=== PATIENT | male | born 1950 | race Caucasian/White ===

== ENCOUNTER 2016-08-16 16:15 | Inpatient (IN) | payer MEDICARE ==
[~2016-08-16] VITALS: Ht 170.2 cm; Wt 107.6 kg
[~2016-08-16 16:15] MED LIST: ALBU18HF INH; AMLO5TAB2 PO; CLOP75TA28 PO; GLPZ5T PO; INSU3INS3 SUBQ; LISI-571 PO; METF1000 ORAL; METO75TA PO; PRE10 PO; SERT50TA9 PO; ZIT250 PO
[2016-08-16 16:23] VITALS: BP 181/95; PULSE 113; RESP 23; O2SAT 93
--- NOTE | 2016-08-16 16:52 | ED.REPORT ---
HPI-Dyspnea / Wheezing Date of Service Aug 16, 2016 ED Provider: Eliza Quintero MD A 66 year old male with a history of CHF, COPD, diabetes, hypertension, and CAD presents to the ED complaining of shortness of breath. The pt was discharged from the hospital yesterday, but has returned because his condition has not improved. He was unable to fill his antibiotic prescription following discharge because the pharmacy was not open. The pt is normally on 2 to 3 L of oxygen at home, but only has a few hours left. His nebulizers have not been helping to relieve his symptoms today. He is able to walk and move around normally, but is complaining of a persistent cough. The pt denies chest pain, fever, or chills. Nursing Notes Stated Complaint: SHORTNESS OF BREATH Chief Complaint: Respiratory Complaints Nursing Notes Reviewed: Yes Allergies: Coded Allergies: vancomycin (Verified Allergy, Intermediate, Rash,Itching,, 08/16/16) Per Q: Pt should tolerates vancomycin as long as the rate is slow Scheduled Amlodipine (Amlodipine) 5 Mg Tablet 5 MG PO DAILY Aspirin Chew (Aspirin Chew) 81 Mg Chew 81 MG PO DAILY Atorvastatin Calcium (Atorvastatin Calcium) 20 Mg Tablet 20 MG PO HS Azithromycin (Zithromax) 250 Mg Tablet 250 MG PO DAILY Clopidogrel (Clopidogrel) 75 Mg Tablet 75 MG PO DAILY Glipizide (Glipizide) 5 Mg Tablet 5 MG PO BIDAC Insuln Asp Prt/Insulin Aspart (NovoLOG 70/30 U100 Insulin Flexpen) 100 Unit/Ml Unit 12 UNIT SUBQ BID Lisinopril (Lisinopril) 5 Mg Tablet 5 MG PO DAILY Metformin (Glucophage) 1,000 Mg Tablet 1,000 MG ORAL BID Metoprolol Tartrate (Metoprolol Tartrate) 75 Mg Tablet 75 MG PO BID Prednisone (PredniSONE) 10 Mg Tablet 10 MG PO DAILY take 4 tabs orally for 2 days, 2 tabs for 3 days, 1 tab for 3 days, then 1/2 tab for 4 days Sertraline HCl (Sertraline) 50 Mg Tablet 25 MG PO DAILY Scheduled PRN Albuterol Sulfate (Ventolin HFA Inhaler) 200 Puff/18 Gm Inhaler 1-2 PUFFS INH DIRECTED PRN PRN For Wheezing Benzonatate (Benzonatate) 100 Mg Capsule 100 MG PO TID PRN PRN For Cough General Time Seen by MD: 16:46 Chief Complaint Shortness of breath Hx Obtained From: Patient Arrived By: Walk-in Sudden in Onset?: No Onset Occurred: More than a week ago... Symptom Duration: Since onset Recent Healthcare: Recent doctor visit, Recent hospitalization Similar Sx Previous: Yes Past Medical History Past Medical History Notes: PCP: Dr. James Frequent hospital admissions for COPD exacerbations Past Medical History CAD, Non ST elevation [place], August 2013 Left lower extremity cellulitis Hypertriglyceridemia 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" Multiple visits of COPD with exacerbation (patient on chronic O2 2-3 L) History of paroxysmal atrial tachycardia Chronic CHF with systolic and diastolic dysfunction, echo August 2013 with an decreased left ventricular ejection fraction History of nonadherence to medical treatment Chronic venous insufficiency Hx cellulitis Reports: COPD, Congestive heart failure, Diabetes mellitus, Hyperlipidemia, Hypertension Reports: Obesity Past Surgical History None Family History Reports: Diabetes mellitus Smoking History Former Smoker Social History Patient is currently living in his car Alcohol Use: Denies alcohol use Drug Use: Denies drug use Other Social History: Poor social support, Frequent ED visitor, Homeless 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 Physical Exam Initial Vital Signs Vital Signs (First) Date Time Temp Pulse Resp B/P Pulse Ox O2 Delivery O2 Flow Rate FiO2 08/16/16 16:23 37.1 113 23 181/95 93 Room Air 08/16/16 18:07 3 Initial VS: Reviewed, Vital signs abnormal General/Constitutional: Awake, Alert Neck: Atraumatic, Supple, Full range of motion Respiratory / Chest: Atraumatic poor aeration bilaterally pursed lip breathing Cardiovascular: Heart rate NL, Regular rhythm, Heart sounds NL ENT: Atraumatic, Airway patent, Mucous membranes moist Abdomen: Atraumatic, Soft, Non-tender Back: Atraumatic, Full range of motion Lower Extremity / Pelvis / MS: Atraumatic, Full range of motion lower extremity lymphedema with erythema (pt states unchanged) Skin: Atraumatic, Color NL, No rash, Warm, Dry Neurologic: Oriented X3, Speech NL, No motor deficits, No sensory deficits Head / Eyes: Atraumatic, Normocephalic, PERRL, EOMI Upper Extremity / MS: Atraumatic, Full range of motion Psychiatric: Affect NL, Mood NL Interpretation & Diagnostics Lab Results Interpretation Result Diagram: 08/16/16 1746 08/16/16 1746 Test 08/16/16 00:00 08/16/16 17:40 08/16/16 17:46 08/16/16 17:48 Troponin T 0.185ug/L (0.0-0.011) White Blood Count 11.6th/mm3 (3.8-10.1) Red Blood Count 4.63mil/mm3 (4.40-5.80) Hemoglobin 13.3g/dL (13.8-17.2) Hematocrit 41.3% (41.0-50.0) Mean Corpuscular Volume 89.2fL (81-100) Mean Corpuscular Hemoglobin 28.7pg (27.0-35.0) Mean Corpuscular Hemoglobin Concent 32.2% (32.0-37.0) Red Cell Distribution Width 15.6% (12.3-15.4) Platelet Count 271bil/L (150-400) Neutrophils (%) (Auto) 66% (40-74) Lymphocytes (%) (Auto) 19% (14-46) Monocytes (%) (Auto) 8% (4-12) Eosinophils (%) (Auto) 2% (0-5) Basophils (%) (Auto) 0% (0-3) Band Neutrophils % 1% (1-5) Metamyelocytes % 1% (0-0) Myelocytes % 2% (0-0) Sodium Level 138mEq/L (134-144) Potassium Level 4.7mEq/L (3.5-5.2) Chloride Level 100mEq/L (97-108) Carbon Dioxide Level 26mmol/L (18-29) Blood Urea Nitrogen 32mg/dL (8-27) Creatinine 0.68mg/dL (0.76-1.27) Estimat Glomerular Filtration Rate 124mL/min (>59) Glucose Level 273mg/dL (60-99) Calcium Level 8.8mg/dL (8.5-10.1) Magnesium Level 1.7mg/dL (1.6-2.6) Pro-B-Type Natriuretic Peptide 873.0pg/mL (0-376) Hold Ramires Top Tube Received (Received) Test 08/16/16 19:20 08/16/16 19:28 Urine Color Yellow (YELLOW) Urine Appearance Clear (CLEAR,HAZY) Urine pH 5.5 (5.0-8.0) Urine Specific [place] 1.020 (1.003-1.035) Urine Protein Negativemg/dL (NEG,TRACE) Urine Glucose (UA) >1000mg/dL (NEGATIVE) Urine Ketones Negativemg/dL (NEGATIVE) Urine Occult Blood Negative (NEGATIVE) Urine Nitrite Negative (NEGATIVE) Urine Bilirubin Negative (NEGATIVE) Urine Urobilinogen Normalmg/dL (NORMAL) Urine Leukocyte Esterase Negative (NEGATIVE) Urine RBC 0-2/hpf (0-2) Urine WBC 0-5/hpf (0-5) Urine Epithelial Cells Few/hpf (NONE-MOD) Urine Crystals None seen (NONE SEEN) Urine Bacteria Few/hpf (NONE-FEW) Urine Hyaline Casts None/lpf (NONE) Urine Granular Casts None seen (NONE SEEN) Urine Waxy Casts None seen (NONE SEEN) Urine Red Blood Cell Casts None seen (NONE SEEN) Urine White Blood Cell Casts None seen (NONE SEEN) Urine Mucus None seen (None Seen) Urine Trichomonas None seen (NONE SEEN) Urine Yeast Few (NONE SEEN) Urinalysis Comment None Urine Culture Reflexed Not indicated ECG Interpretation ECG Interpretation: sinus tachycardia with a rate of 108 Time: 20:18 Interpreted by: ED physician X-Ray Chest Interpretation Chest Xray Interpretation: IMPRESSION: Bibasilar lung opacities compatible with pneumonia have decreased in size compared to 08/12/2016, but not completely resolved Dictated by: Macarena Oliver MD, PhD on 08/16/2016 at 17:56 Approved by: Macarena Oliver MD, PhD on 08/16/2016 at 17:56 Interpretation / Wet Read by: Interpret - Radiologist Re-Eval/Medical Decision Med Decision/Clinical Course This patient is noncompliant and belligerent, he was discharged yesterday and says having difficulty breathing and does not have enough oxygen to get him through to tomorrow. He also says he did not take his antibiotics today because it was not given to him upon discharge and the pharmacy it was sent to his closed. His evaluation here reveals that his pneumonia is improving but he had another in his troponin. The patient likely has that increased due to his increase work of breathing and stress on his heart. He should likely have further cardiac evaluation however he has not followed up in the past. The patient will need to be admitted to be further evaluated from a cardiac standpoint as well as due to his need for oxygen. Source of Hx: Old records Re-Evaluation/Progress #1: Time of Eval: 16:46 Patient Status: Condition unchanged Re-Evaluation/Progress Note: Pt is informed of the need for admission during the initial interview. The pt understands and agrees with the plan. All questions are addressed at this time. Re-Evaluation/Progress #2: Time of Eval: 17:28 Patient Status: Condition unchanged Re-Evaluation/Progress Note: Pt rechecked, who is refusing to dress in a gown. Need for admission is reiterated and pt agrees to comply. Consultation : Referral / Consult Name: Lui Lewis MD Consulted With: Hospitalist Call Returned at: 19:41 Practice Manager: Agrees with eval, Agrees with plan, Accepts admit Note: Spoke with Dr. Lewis, hospitalist, regarding pt's case. Dr. Lewis agrees with the evaluation and agrees to admit the pt. Counseled Regarding: Diagnosis, Lab results, Need for admission Discharge & Departure Impression: Primary Impression: Pneumonia Pneumonia type: due to unspecified organism Laterality: bilateral Lung location: lower lobe of lung Qualified Code: J18.9 - Pneumonia, unspecified organism Additional Impressions: COPD (chronic obstructive pulmonary disease) COPD type: unspecified COPD Qualified Code: J44.9 - Chronic obstructive pulmonary disease, unspecified Elevated troponin Disposition: ADMITTED TO HOSPITAL Discharge Condition All VS Reviewed: Yes Condition: Stable Referrals: Yumiko James MD (PCP) Raimundo Attestation Portions of this note were transcribed by Godwin Carrillo. I, Dr. Quintero personally performed the history, physical exam and medical decision-making; I reviewed and confirmed the accuracy of the information in the transcribed note. Signed by: Raimundo Duran, 08/16/2016, 20:35 copies to: Yumiko James MD, Jena M MD Aug 16, 2016 16:52 GODWIN CARRILLO Aug 16, 2016 17:26
[2016-08-16] MEDS ORDERED: Albuterol-Ipratropium 3 mL Inhalation Solution NEB ONE (17:25)
--- NOTE | 2016-08-16 17:52 | ABG ---
DateTimeAnalyzed 17:47:00 -_ pH ____7.399 - pCO2 ___47.1__ -mmHg pO2 ___59.5__ -mmHg HCO3- ___28.5__ -mmol/L ABE ____3.4__ -mmol/L tHb ___13.4__ -g/dL O2Hb ___88.7__ -% COHb ____1.5__ -% MetHb ____0.9__ -% sO2 ___90.9__ -% FIO2 ___32.0__ -% Drawn By RN - Date/Time Notified____ 17:51:00 -_ Oxygen Device 1 __CANNULA - B 751 -mmHg tO2 ___16.7__ -Vol% Collin test N/A -
[2016-08-16 17:57] LABS: Mean Corpuscular Hemoglobin 28.7 pg (27.0-35.0); Mean Corpuscular Volume 89.2 fL (81-100); Platelet Count 271 bil/L (150-400)
--- NOTE | 2016-08-16 17:58 | DRSVH ---
PROCEDURE: X-RAY CHEST ONE VIEW, PORTABLE ([id number]) INDICATIONS: pneumonia TECHNIQUE: One view of the chest was acquired. COMPARISON: [facility], CR, XR CHEST 1VW (PORTABLE), 08/12/2016, 21:42. FINDINGS: Surgical changes and devices: None. Lungs and pleura: No pleural effusions or pneumothorax. Bibasilar opacities have decreased in size c ompared to prior examination. Mediastinum: Mediastinal contours appear normal. Heart size is normal. Bones and chest wall: No suspicious bony lesions. Overlying soft tissues appear unremarkable. IMPRESSION: Bibasilar lung opacities compatible with pneumonia have decreased in size compared to , but not completely resolved Dictated by: Macarena Oliver MD, PhD on 08/16/2016 at 17:56 Approved by: Macarena Oliver MD, PhD on 08/16/2016 at 17:56
[2016-08-16] MEDS ORDERED: Azithromycin Inj 500 MG in Dextrose 5% w/Vial Mate 250 ML IV ONE (18:00)
[2016-08-16 18:07] VITALS: PULSE 112; RESP 24; O2SAT 93
[2016-08-16 18:40] LABS: BASOPHILS % (AUTO) 0 % (0-3); EOSINOPHILS % (AUTO) 2 % (0-5); MONOCYTES % (AUTO) 8 % (4-12); NEUTROPHILS % (AUTO) 66 % (40-74)
[2016-08-16 18:47] LABS: Magnesium 1.7 mg/dL (1.6-2.6)
[2016-08-16] MEDS ORDERED: 0.9% Sodium Chloride 250 ML IV ONE (18:50)
[2016-08-16] MEDS ORDERED: Nitroglycerin 2% 1 Gm Ointment TOPICAL ONE (18:55)
[2016-08-16 19:30] VITALS: BP 145/83; PULSE 121; RESP 21; O2SAT 91
--- NOTE | 2016-08-16 19:56 | PCM.HPMED ---
Subjective Date of Service Aug 16, 2016 Primary Provider: Admitting Physician: Primary Care Physician: Yumiko James MD Attending Physician: Admit Status: From the Emergency Department Chief Complaint: Dyspnea Review of Systems: Gen.: No fevers chills weight loss weight gain Eyes: no visual disturbances or blurring vision HEENT: No nose/throat drainage, no pain in ears or throat, no hearing loss Lymph: No lymph nodes noted Cardiac: No chest pain, orthopnea, PND, palpitations , pedal edema or dyspnea on exertion Pulmonary: no cough, wheezing or bringing up of sputum GI: No anorexia nausea vomiting blood or black in the stool : no dysuria hematuria urinary frequency or decrease in urine output Musculoskeletal: Joint swelling no joint pain no new muscle aches or back pain Neuro: No syncope, seizures no loss of consciousness no new focal weakness, numbness or tingling Psychiatric: New new anxiety insomnia or depression Endocrine: No new heat or cold intolerances polyuria or polydipsia Hematology: No lymphadenopathy or easy bleeding or bruising noted skin: No new rashes, stasis dermatitis Allergies Coded Allergies: vancomycin (Verified Allergy, Intermediate, Rash,Itching,, 08/16/16) Per Q: Pt should tolerates vancomycin as long as the rate is slow Home Medications Per 08/15 discharge summary Amlodipine (Amlodipine) 5 Mg Tablet 5 MG PO DAILY Prescribed by: EMILIE IQBAL DO Azithromycin (Zithromax) 250 Mg Tablet 250 MG PO DAILY Prescribed by: EMILIE IQBAL DO Clopidogrel (Clopidogrel) 75 Mg Tablet 75 MG PO DAILY Prescribed by: BRIGIDO JAIMES DO Glipizide (Glipizide) 5 Mg Tablet 5 MG PO BIDAC Prescribed by: BRIGIDO JAIMES DO Insuln Asp Prt/Insulin Aspart (NovoLOG 70/30 U100 Insulin Flexpen) 100 Unit/Ml Unit 12 UNIT SUBQ BID Prescribed by: BRIGIDO JAIMES DO Lisinopril (Lisinopril) 5 Mg Tablet 5 MG PO DAILY Prescribed by: BRIGIDO JAIMES DO Metformin (Glucophage) 1,000 Mg Tablet 1,000 MG ORAL BID (Reported) Metoprolol Tartrate (Metoprolol Tartrate) 75 Mg Tablet 75 MG PO BID (Reported) Prednisone (PredniSONE) 10 Mg Tablet 10 MG PO DAILY take 4 tabs orally for 2 days, 2 tabs for 3 days, 1 tab for 3 days, then 1/2 tab for 4 days Prescribed by: EMILIE IQBAL DO Sertraline HCl (Sertraline) 50 Mg Tablet 25 MG PO DAILY Prescribed by: EMILIE IQBAL DO As needed Albuterol Sulfate (Ventolin HFA Inhaler) 200 Puff/18 Gm Inhaler 1-2 PUFFS INH DIRECTED PRN PRN For Wheezing Prescribed by: GABRIELLE MAURO DO Additional med instructions Follow your blood sugars closely as the prednisone will increase your glucose levels PMH CAD, Non ST elevation MO, August 2013 Left lower extremity cellulitis Hypertriglyceridemia 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" Multiple visits of COPD with exacerbation (patient on chronic O2 2-3 L) History of paroxysmal atrial tachycardia Chronic CHF with systolic and diastolic dysfunction, echo August 2013 with an decreased left ventricular ejection fraction History of nonadherence to medical treatment Chronic venous insufficiency Hx cellulitis Reports: COPD, Congestive heart failure, Diabetes mellitus, Hyperlipidemia, Hypertension Reports: Obesity Family History Significant for type II diabetes Social History Hx Alcohol Use: No (declines) Hx Substance Use: No Hx Tobacco Use: Yes (quit 9 years ago) Smoking Status: Former Smoker Living Arrangement: Alone Homeless Social History Hx Alcohol Use: No (declines) Hx Substance Use: No Hx Tobacco Use: Yes (quit 9 years ago) Smoking Status: Former Smoker Exam Vital Signs Vital Sign - Last Date Time Temp Pulse Resp B/P Pulse Ox O2 Delivery O2 Flow Rate FiO2 08/16/16 19:30 121 21 145/83 91 Nasal Cannula 3 08/16/16 16:23 37.1 Exam Gen.-Obese male Sleeping in the chair, I did not bother to wake him no apparent distress. I saw he was wide awake in the emergency room already refusing care and being belligerent towards nurses. Obese male lying in chair Eyes-close normal eyelids ENT- ears normal, nose normal Mouth: Open mucosa still sort of moist Neck- supple/trach midline CVS- RRR Lungs respirations regular and nonlabored GI-generous/pendulous protuberant pannus Musc- moving 4 no obvious deformity Neuro- cranial nerves II through XII intact to gross examination, nonfocal Skin- warm and dry Psych-patient was asleep but as described in what I saw interactions with nursing is unpleasant and difficult., Lab and Diagnostics Result Diagram: 08/16/16174508/16/161745 Assessment & Plan Mr. Vincent High is a 66 year old gentleman with multiple admissions secondary to poorly managed COPD, with uncontrolled DM, HTN, and CAD due to noncompliance. He returned to being discharged yesterday having refused care after last admission where he presented to the ED <24 hours from leaving AMA with shortness of breath. No further medical management indicated in this noncompliant patient. He was discharged in stable condition and instructed to follow-up with his primary care physician within one week, sooner if his condition worsened in any way. chronic hypoxemic respiratory failure in the setting of COPD, present on admission, he was on 4 L and 92% 08/15. Now on 2 L doing better. Continuing outpatient bronchodilators, Zithromax and bumping prednisone from 40-60 mg Uncontrolled insulin-dependent diabetes- resume outpatient regimen the patient's totally noncompliant include up to and including refusing his diabetic diet here. HG A1c 11.4 07/21. CAD s/p stemi HTN/Lipids/elv trop- resume aspirin and cont Plavix, resume BP meds, and statin as previously. I am not going to put him on telemetry he has refused in the past as he has refused any cardiac workup in the last week MRSA screen positive, chronicity unknown. Under therapy- he was getting Mucinpurin I am not sure I would bother given the fact that he is not going to complete the course. Labile mood, chronic. Ongoing-- Zoloft 25mg daily, I am adding gabapentin and Seroquel. Prophylaxis-DVT with heparin and SCDs (patient refuses I would threaten discharge), GI none indicated Disposition-I believe this patient's a full code looks in his car. He has alienated himself from his family This patient should not have been admitted. It is well documented that his troponin has been elevated and he just refused cardiac workup. In the emergency room he was refusing interventions there as well. This patient is utilizing this is a hotel since he lives in a car and has alienated himself from his family. I am checking drug and alcohol screen. I would recommend that social work and nursing craft a behavioral contract. If this patient start refusing care he should be immediately discharged. He was refusing care in the emergency room and should have never been admitted. He is actually on less oxygen than he was yesterday and probably doing better. If his behaviors change and he starts at least excepting the workup for his problems then perhaps there is no indication to be hospitalized. Unless he starts excepting care and/or behaving himself I would do nothing to accommodate him while he is in the hospital and I would discharge him as soon as he starts acting up and refusing care. At that point in time there is has ceased to be any acute intervention or reason to be in the hospital. Lui Lewis MD Aug 16, 2016 19:56 - Echo to evaluate; patient refused Chronic hypertension, presumed stable - Unable to assess adherence with medications, but unlikely given history of non -adherence and living situation - Pt previously discharged on Metoprolol 75mg BID and Amlodipine 10mg daily - Resumed metoprolol, amlodipine 5mg; increase amlodipine to 10mg for better control if needed - Continue to monitor Hyperlipidemia, chronic. Presumed stable - Given pt's living situation (lives in his car), pt does not have access to proper diet - Would recommend he follow up with his PCP CAD with history of STEMI, presumed stable - Plavix 75mg daily - Echo MRSA screen positive, chronicity unknown. Under therapy - MRSA screen 08/06/2016: Positive - Based on chart review, not previously treated - Mupirocin BID x10 days Labile mood, chronic. 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
[2016-08-16 20:05] LABS: APPEARANCE,URINE CLEAR (CLEAR,HAZY); COLOR,URINE YELLOW (YELLOW); OCCULT BLOOD,URINE NEGATIVE (NEGATIVE); PH,URINE 5.5 (5.0-8.0); UROBILINOGEN,URINE NORMAL (NORMAL)
[2016-08-16 20:20] LABS: YEAST,URINE FEW (NONE SEEN)
[2016-08-16] MEDS ORDERED: Lactated Ringer's 1,000 ML IV SCH (21:02)
[2016-08-16] MEDS ORDERED: Ondansetron 2 mg/mL 2 mL Inj IVPUSH PRN (21:05)
[2016-08-16] MEDS ORDERED: Albuterol 2.5 mg/3 mL Inhalation Solution NEB PRN (21:05)
[2016-08-16] MEDS ORDERED: Alum-Mag Hydrox-Simeth 30 mL Suspension PO PRN (21:05)
[2016-08-16 21:17] VITALS: BP 143/91; PULSE 111; RESP 22; O2SAT 94
[2016-08-16] MEDS ORDERED: Polyethylene Glycol (PEG) 17 Gm Powder PO PRN (22:20)
[2016-08-16] MEDS ORDERED: BENZ100C8 PO (22:28)
[2016-08-16] MEDS ORDERED: ASPI81TA3 PO (22:28)
[2016-08-16] MEDS ORDERED: ATOR20TA65 PO (22:28)
[2016-08-16] MEDS ORDERED: Glucose 40% Oral Gel 15 Gm Tube PO PRN (22:30)
--- NOTE | 2016-08-16 23:20 | NUR ---
ADMIT; 66 year old male admitted to room 1025 via wheelchair from e.r. See admit screens. Pt cussing off and on. C/o his nebs were left in e.r. and he wasn't ready to come to the floor yet. E.r. was called and tech told pt he had all his things sent with him to his room. Fell asleep in chair at the bedside. Nephew and his came in and left without waking pt. Nephew stated pt's 02 tank and nebs are in his car. Pt lives in his car.
[2016-08-17] VITALS (9 sets, daily range): BP systolic 124–157; BP diastolic 66–85; PULSE 49–113; RESP 16–24; O2SAT 87–97
[2016-08-17] MEDS ORDERED: Albuterol-Ipratropium 3 mL Inhalation Solution NEB SCH (00:30)
[2016-08-17] MEDS: Sodium Chloride LOK Flush 10 mL Syringe IVFLUSH SCH ×3 (00:30→17:56)
--- NOTE | 2016-08-17 01:48 | NUR ---
ACTIVITY; up to the bathroom to void. Seems steady on his feet. Fell asleep in chair while watching tv.
--- NOTE | 2016-08-17 06:11 | NUR ---
ACTIVITY; assisted to the bathroom and back to chair. Some sob with exertion.
[2016-08-17] MEDS: Albuterol 2.5 mg/3 mL Inhalation Solution NEB SCH ×4 (07:00→19:16)
[2016-08-17] MEDS: Insulin ASPART 70/30 FlexPen 300 Unit/3 mL Inj SUBQ SCH ×2 (08:09→20:52)
[2016-08-17] MEDS: Insulin LISPRO 300 Unit/3 mL Inj SUBQ SCH ×4 (08:09→22:26)
[2016-08-17] MEDS ORDERED: predniSONE 20 mg Tablet PO SCH (08:30)
--- NOTE | 2016-08-17 11:30 | PCM.PNMED ---
Subjective Date of Service Aug 17, 2016 Subjective - Pt seen and examined this morning. - He is c/o shortness of breath. He is verbally abusive. Exam Vital Signs Vital Sign - Last Date Time Temp Pulse Resp B/P Pulse Ox O2 Delivery O2 Flow Rate FiO2 08/17/16 09:09 50 18 93 Nasal Cannula 4.00 08/17/16 09:04 36.4 157/66 Intake and Output 08/16/16 08/16/16 08/17/16 Cumulative From/Thru 14:59 22:59 06:59 08/16/16 16:23 - 08/17/16 06:20 Intake Total 250 ml 100 ml 350 ml Balance 250 ml 100 ml 350 ml Intake Oral 100 ml 100 ml IV Total 250 ml 250 ml # Voids 3 1 4 Exam Gen.-Obese male Sleeping in the chair, I did not bother to wake him no apparent distress. I saw he was wide awake in the emergency room already refusing care and being belligerent towards nurses. Obese male lying in chair Eyes-close normal eyelids ENT- ears normal, nose normal Mouth: Open mucosa still sort of moist Neck- supple/trach midline CVS- RRR Lungs respirations regular and nonlabored GI-generous/pendulous protuberant pannus Musc- moving 4 no obvious deformity Neuro- cranial nerves II through XII intact to gross examination, nonfocal Skin- warm and dry IVs and Medications Medications Reviewed: Medications were reviewed in detail Lab and Diagnostics Result Diagram: 08/16/16174508/16/161745 Assessment & Plan 66 year old gentleman with multiple admissions secondary to poorly managed COPD , with uncontrolled DM, HTN, and CAD due to noncompliance. He returned to being discharged yesterday having refused care after last admission where he presented to the ED <24 hours from leaving AMA with shortness of breath. No further medical management indicated in this noncompliant patient. He was discharged in stable condition and instructed to follow-up with his primary care physician within one week, sooner if his condition worsened in any way. chronic hypoxemic respiratory failure in the setting of COPD, present on admission, - he was on 4 L and 92% 08/15. Now on 2 L doing better. - Continuing outpatient bronchodilators, Zithromax and bumping prednisone from 40-60 mg Uncontrolled insulin-dependent diabetes - resume outpatient regimen the patient's totally noncompliant include up to and including refusing his diabetic diet here. - HG A1c 11.4 07/21. CAD s/p stemi HTN/Lipids/elvevated trop - resume aspirin and cont Plavix, resume BP meds, and statin as previously. - He is persistently refusing any more cardiac interventions MRSA screen positive, chronicity unknown. Under therapy - he was getting Mucinpurin Labile mood, chronic. Ongoing - Zoloft 25mg daily, - gabapentin and Seroquel. Prophylaxis-DVT with heparin and SCDs (patient refuses I would threaten discharge), GI none indicated Disposition-I believe this patient's a full code. He has alienated himself from his family. He lives in his car. As per admitting physician note: "This patient should not have been admitted. It is well documented that his troponin has been elevated and he just refused cardiac workup. In the emergency room he was refusing interventions there as well. This patient is utilizing this is a hotel since he lives in a car and has alienated himself from his family. I am checking drug and alcohol screen. I would recommend that social work and nursing craft a behavioral contract. If this patient start refusing care he should be immediately discharged. He was refusing care in the emergency room and should have never been admitted. He is actually on less oxygen than he was yesterday and probably doing better. If his behaviors change and he starts at least excepting the workup for his problems then perhaps there is no indication to be hospitalized. Unless he starts excepting care and/or behaving himself I would do nothing to accommodate him while he is in the hospital and I would discharge him as soon as he starts acting up and refusing care. At that point in time there is has ceased to be any acute intervention or reason to be in the hospital." Bhanu Hays MD Aug 17, 2016 11:30
[2016-08-18] MEDS: Sodium Chloride LOK Flush 10 mL Syringe IVFLUSH SCH ×3 (01:29→14:20)
[2016-08-18] MEDS: Albuterol 2.5 mg/3 mL Inhalation Solution NEB SCH (07:46)
[2016-08-18 07:47] VITALS: PULSE 94; RESP 24; O2SAT 95
--- NOTE | 2016-08-18 07:47 | NUR ---
Agitation Patient seem agitated most of the time. Patient compliant with care, but is generally disgruntled about it. Patient sleeping up in chair by bedside. Patient on 4L O2.
--- NOTE | 2016-08-18 08:31 | NUR ---
Palliative care note Msg left on [employer] phone to indicate the following. Pt seen by palliative care during last admit ( 08/14/16) Consideration given to possible referral to Hospice at that time. Dr. Mejia, hospital medical biller for Hospice reviewed chart and also spoke to Sandy KISER regarding pt needs and did not find him appropriate for services at this time. Darcy SWEETSW, CCM
[2016-08-18] MEDS ORDERED: Albuterol 2.5 mg/3 mL Inhalation Solution NEB PRN (08:50)
[2016-08-18] MEDS: Insulin LISPRO 300 Unit/3 mL Inj SUBQ SCH ×4 (09:12→22:01)
[2016-08-18] MEDS: Insulin ASPART 70/30 FlexPen 300 Unit/3 mL Inj SUBQ SCH ×2 (09:13→20:52)
[2016-08-18] MEDS: predniSONE 20 mg Tablet PO SCH (09:14)
[2016-08-18 10:12] VITALS: BP 124/80; PULSE 84; RESP 19; O2SAT 93
[2016-08-18 14:24] VITALS: PULSE 88; RESP 24; O2SAT 93
[2016-08-18 18:08] VITALS: BP 116/71; PULSE 80; RESP 21; O2SAT 94
--- NOTE | 2016-08-18 18:42 | PCM.PNMED ---
Subjective Date of Service Aug 18, 2016 Subjective Patient is known to me from his previous admission. Patient states that he still cannot breathe, but admits to being close to his baseline. History of excessive smoking in the past. He has not smoked for 20 years. Currently, no chest pain, nausea vomiting, diarrhea or constipation. Exam Vital Signs Vital Sign - Last Date Time Temp Pulse Resp B/P Pulse Ox O2 Delivery O2 Flow Rate FiO2 08/18/16 18:08 36.4 80 21 116/71 94 Nasal Cannula 4.00 Intake and Output 08/17/16 08/17/16 08/18/16 Cumulative From/Thru 15:00 23:00 07:00 08/16/16 16:23 - 08/18/16 06:36 Intake Total 2900 ml 760 ml 4010 ml Balance 2900 ml 760 ml 4010 ml Intake Oral 2900 ml 760 ml 3760 ml IV Total 250 ml # Voids 5 7 16 Exam General: Alert, Oriented X3, NAD Head: Normocephalic, atraumatic Eyes: LOUISE, EOMI, no scleral Icterus Chest: Decreased breath sounds throughout, occasional wheezing Heart: Regular rate and rhythm. Normal S1, S2, no murmurs noted Abdomen: soft, non-tender. Bowel sounds are normoactive. No guarding or rebound. Extremities: no cyanosis, clubbing or edema. IVs and Medications Medications Reviewed: Medications were reviewed in detail Lab and Diagnostics Result Diagram: 08/16/16174508/16/161745 Assessment & Plan 66 year old gentleman with multiple admissions secondary to poorly managed COPD , with uncontrolled DM, HTN, and CAD due to noncompliance. He returned to being discharged having refused full workup after last admission where he presented to the ED <24 hours from leaving AMA with shortness of breath. No further medical management indicated in this noncompliant patient. chronic hypoxemic respiratory failure in the setting of COPD, present on admission, - he was on 4 L and 92% 08/15. His baseline is 3-4 L - Continuing outpatient bronchodilators, Zithromax and bumping prednisone from 40-60 mg Uncontrolled insulin-dependent diabetes - resume outpatient regimen the patient's totally noncompliant include up to and including refusing his diabetic diet here. - HG A1c 11.4 07/21. CAD s/p stemi HTN/Lipids/elvevated trop - Continue aspirin and Plavix, blood pressure meds, statin - He is persistently refusing any more cardiac interventions MRSA screen positive, chronicity unknown. Under therapy - he was getting Mucinpurin Labile mood, chronic. Ongoing - Zoloft 25mg daily, - gabapentin and Seroquel. Prophylaxis-DVT with heparin and SCDs, GI none indicated Disposition- full code. He has alienated himself from his family. He lives in his car. Difficult discharge, the patient is homeless and seems to use the hospital for a for warm bed. Yosi Purcell DO Aug 18, 2016 18:42
[2016-08-18 20:09] VITALS: PULSE 114; RESP 24; O2SAT 94
[2016-08-19] MEDS: Sodium Chloride LOK Flush 10 mL Syringe IVFLUSH SCH ×2 (00:30→08:30)
--- NOTE | 2016-08-19 02:15 | NUR ---
Blood Glucose Patient's blood glucose remains high this shift. Down to 332 after 3 units Lispro. Patient on 4L O2, sitting up in bedside chair. Patient often agitated while receiving cares, but compliant.
[2016-08-19 06:40] LABS: Mean Corpuscular Hemoglobin 28.8 pg (27.0-35.0); Mean Corpuscular Volume 88.4 fL (81-100)
[2016-08-19] MEDS: predniSONE 20 mg Tablet PO SCH (08:39)
[2016-08-19] MEDS: Insulin ASPART 70/30 FlexPen 300 Unit/3 mL Inj SUBQ SCH (08:42)
[2016-08-19] MEDS: Insulin LISPRO 300 Unit/3 mL Inj SUBQ SCH ×2 (08:43→12:11)
[2016-08-19 14:01] VITALS: BP 118/71; PULSE 79; RESP 22; O2SAT 92
[2016-08-19] MEDS ORDERED: BECL8.7A6 INHALATION (15:13)
--- NOTE | 2016-08-19 15:15 | PCM.DIMED ---
Discharge Instructions Date of Service Aug 19, 2016 Dates of Hospitalization Aug 16, 2016 at 20:32 Discharge Diagnosis Discharge Diagnosis COPD exacerbation Diet Heart Healthy, Diabetic Activity Limited until seen by PCP Call your provider Fever or Chills, Chest pain, Weakness (unilateral) Patient Instructions Follow-up with PCP in: 1 week Provider: Felicia Park MD Follow-up in: 4 weeks Yosi Purcell DO Aug 19, 2016 15:15
--- NOTE | 2016-08-19 15:45 | NUR ---
Social Work Initial Assessment/Discharge D: EMR reviewed. See initial assessment. Pt is a 66Y old male admitted for Increased Troponin, Pneumonia. Insurance is Medicare. PCP is Dr. James. Readmission score 8/8-High. JEANETTE met with Pt at bedside. Pt is a frequent admit to [facility] due to similar concerns. Pt frequently declines treatments outside of those related to respiratory concerns. Pt is homeless and lives out of his car. Pt has oxygen provided by [facility] and reports no concerns with receiving needed supplies. JEANETTE provided Pt with [facility] [place] [facility] for [facility], Pt reports he will stay in his car. Pt is medically stable and discharging back to homelessness. An [facility] plan is in place through the ED to prevent readmission. Pt's [employer] Contacted by [facility] program SURESH and awaiting call back. No discharge needs identified. A: Pt who is chronically homeless, frequent admit P: Pt is medically stable and discharging back to homelessness. An [facility] plan is in place through the ED to prevent readmission. Pt's [employer] Contacted by [facility] program SURESH and awaiting call back. No discharge needs identified. SURESH Rivers Addendum: 08/19/16 at 1549 by JIMY VAZQUEZ Amended: Links added.
--- NOTE | 2016-08-19 16:39 | PCM.DC.MED ---
Discharge Summary Date of Service Aug 19, 2016 Dates of Hospitalization Date of Hospital Admission Aug 16, 2016 at 20:32 Date of Discharge: Aug 19, 2016 Providers: Admitting Physician: Clement Lewis MD Primary Care Physician: Yumiko James MD Attending Physician: Clement Lewis MD Diagnosis at Time of Discharge Diagnosis at Time of Discharge COPD exacerbation Procedures XRay, CTs & MRIs PROCEDURE: X-RAY CHEST ONE VIEW, PORTABLE ([id number]) INDICATIONS: pneumonia TECHNIQUE: One view of the chest was acquired. COMPARISON: [facility], CR, XR CHEST 1VW (PORTABLE), 08/12/2016, 21 :42. FINDINGS: Surgical changes and devices: None. Lungs and pleura: No pleural effusions or pneumothorax. Bibasilar opacities have decreased in size compared to prior examination. Mediastinum: Mediastinal contours appear normal. Heart size is normal. Bones and chest wall: No suspicious bony lesions. Overlying soft tissues appear unremarkable. IMPRESSION: Bibasilar lung opacities compatible with pneumonia have decreased in size compared to 08/12/2016, but not completely resolved Brief History Mr. Vincent High is a 66 year old gentleman with multiple admissions secondary to poorly managed COPD, with uncontrolled DM, HTN, and CAD due to noncompliance. He returned to being discharged yesterday having refused care after last admission where he presented to the ED <24 hours from leaving AMA with shortness of breath. No further medical management indicated in this noncompliant patient. Hospital Course 66 year old gentleman with multiple admissions secondary to poorly managed COPD , with uncontrolled DM, HTN, and CAD due to noncompliance. He returned after being discharged having refused full workup after last admission where he presented to the ED <24 hours from leaving AMA with shortness of breath. Despite this, he was admitted for COPD exacerbation. This patient is an unfortunate gentleman who has previous smoking history of up to 5 packs per day. He quit 20 years ago. He is homeless and living out of his car. He continues to be incredibly noncompliant and at times abusive to the staff. His baseline oxygen demand is 3-4 L. He has been repeatedly admitted especially on cold nights as the patient has been using the hospital for a warm place to stay. Unfortunately his resources are limited and his abrasive personality makes it difficult for him to find help. Case management was consulted and he was given information on the cold weather assisted. He was at his baseline at discharge. I recommended follow-up with pulmonology who may be able to find tune his medications to improve his COPD. He was instructed to continue a prednisone taper, his family states that he does not take his prednisone but remembers to take inhalers. I did prescribe him Qvar at discharge which may help if he is not taking his oral prednisone. He was discharged in stable condition and instructed to follow-up with pulmonology as above as well as his PCP in one week, sooner if his condition worsens in anyway. High risk for further ER visits. He has real pathology unfortunately but readmission should be reserved to discourage him from using the hospital as a assisted. Case management is working on a care plan for when he presents to the ER. Delineated problem list as below. chronic hypoxemic respiratory failure in the setting of COPD, present on admission, - he was on 4 L and 92% 08/15. His baseline is 3-4 L - Continuing outpatient bronchodilators, Zithromax and continuing prednisone Uncontrolled insulin-dependent diabetes - resume outpatient regimen the patient's totally noncompliant include up to and including refusing his diabetic diet here. - HG A1c 11.4 07/21. CAD s/p stemi HTN/Lipids/elvevated trop - Continue aspirin and Plavix, blood pressure meds, statin - He is persistently refusing any cardiac interventions MRSA screen positive, chronicity unknown. Under therapy - he was getting Mucinpurin Labile mood, chronic. Ongoing - Zoloft 25mg daily, - gabapentin and Seroquel. Exam Vital Signs (Last) Date Time Temp Pulse Resp B/P Pulse Ox O2 Delivery O2 Flow Rate FiO2 08/19/16 14:01 36.9 79 22 118/71 92 Nasal Cannula 2.00 Test 08/16/16 00:00 08/16/16 17:40 08/16/16 17:46 08/16/16 17:48 Troponin T 0.185ug/L (0.0-0.011) Alcohol, Quantitative < 10mg/dL (0-10) Neutrophils (%) (Auto) 66% (40-74) Lymphocytes (%) (Auto) 19% (14-46) Monocytes (%) (Auto) 8% (4-12) Eosinophils (%) (Auto) 2% (0-5) Basophils (%) (Auto) 0% (0-3) Band Neutrophils % 1% (1-5) Metamyelocytes % 1% (0-0) Myelocytes % 2% (0-0) Magnesium Level 1.7mg/dL (1.6-2.6) Pro-B-Type Natriuretic Peptide 873.0pg/mL (0-376) Hold Ramires Top Tube Received (Received) Test 08/16/16 19:20 08/16/16 19:28 08/19/16 05:59 Urine Opiates Screen Negative Urine Methadone Screen Negative Urine Barbiturates Screen Negative Urine Amphetamines Screen Negative Urine Benzodiazepines Screen Negative Urine Cocaine Metabolite Screen Negative Urine Cannabinoids Screen Negative Urine Color Yellow (YELLOW) Urine Appearance Clear (CLEAR,HAZY) Urine pH 5.5 (5.0-8.0) Urine Specific [place] 1.020 (1.003-1.035) Urine Protein Negativemg/dL (NEG,TRACE) Urine Glucose (UA) >1000mg/dL (NEGATIVE) Urine Ketones Negativemg/dL (NEGATIVE) Urine Occult Blood Negative (NEGATIVE) Urine Nitrite Negative (NEGATIVE) Urine Bilirubin Negative (NEGATIVE) Urine Urobilinogen Normalmg/dL (NORMAL) Urine Leukocyte Esterase Negative (NEGATIVE) Urine RBC 0-2/hpf (0-2) Urine WBC 0-5/hpf (0-5) Urine Epithelial Cells Few/hpf (NONE-MOD) Urine Crystals None seen (NONE SEEN) Urine Bacteria Few/hpf (NONE-FEW) Urine Hyaline Casts None/lpf (NONE) Urine Granular Casts None seen (NONE SEEN) Urine Waxy Casts None seen (NONE SEEN) Urine Red Blood Cell Casts None seen (NONE SEEN) Urine White Blood Cell Casts None seen (NONE SEEN) Urine Mucus None seen (None Seen) Urine Trichomonas None seen (NONE SEEN) Urine Yeast Few (NONE SEEN) Urinalysis Comment None Urine Culture Reflexed Not indicated White Blood Count 13.4th/mm3 (3.8-10.1) Red Blood Count 4.58mil/mm3 (4.40-5.80) Hemoglobin 13.2g/dL (13.8-17.2) Hematocrit 40.5% (41.0-50.0) Mean Corpuscular Volume 88.4fL (81-100) Mean Corpuscular Hemoglobin 28.8pg (27.0-35.0) Mean Corpuscular Hemoglobin Concent 32.6% (32.0-37.0) Red Cell Distribution Width 15.6% (12.3-15.4) Platelet Count 288bil/L (150-400) Sodium Level 140mEq/L (134-144) Potassium Level 5.0mEq/L (3.5-5.2) Chloride Level 99mEq/L (97-108) Carbon Dioxide Level 31mmol/L (18-29) Blood Urea Nitrogen 30mg/dL (8-27) Creatinine 0.73mg/dL (0.76-1.27) Estimat Glomerular Filtration Rate 114mL/min (>59) Glucose Level 149mg/dL (60-99) Calcium Level 9.6mg/dL (8.5-10.1) Discharge Medications Discharge Medications Amlodipine (Amlodipine) 5 Mg Tablet 5 MG PO DAILY Prescribed by: EMILIE PURCELL DO Aspirin Chew (Aspirin Chew) 81 Mg Chew 81 MG PO DAILY Prescribed by: CLEMENT LEWIS MD Atorvastatin Calcium (Atorvastatin Calcium) 20 Mg Tablet 20 MG PO HS Prescribed by: CLEMENT LEWIS MD Azithromycin (Zithromax) 250 Mg Tablet 250 MG PO DAILY Prescribed by: EMILIE PURCELL DO Beclomethasone Dipropionate (Qvar) 8.7 Gm Aer.w.adap 1 PUFF INHALATION BID Prescribed by: EMILIE PURCELL DO Clopidogrel (Clopidogrel) 75 Mg Tablet 75 MG PO DAILY Prescribed by: BRIGIDO JAIMES DO Glipizide (Glipizide) 5 Mg Tablet 5 MG PO BIDAC Prescribed by: BRIGIDO JAIMES DO Insuln Asp Prt/Insulin Aspart (NovoLOG 70/30 U100 Insulin Flexpen) 100 Unit/Ml Unit 12 UNIT SUBQ BID Prescribed by: BRIGIDO JAIMES DO Lisinopril (Lisinopril) 5 Mg Tablet 5 MG PO DAILY Prescribed by: BRIGIDO JAIMES DO Metformin (Glucophage) 1,000 Mg Tablet 1,000 MG ORAL BID (Reported) Metoprolol Tartrate (Metoprolol Tartrate) 75 Mg Tablet 75 MG PO BID (Reported) Prednisone (PredniSONE) 10 Mg Tablet 10 MG PO DAILY take 4 tabs orally for 2 days, 2 tabs for 3 days, 1 tab for 3 days, then 1/2 tab for 4 days Prescribed by: EMILIE PURCELL DO Sertraline HCl (Sertraline) 50 Mg Tablet 25 MG PO DAILY Prescribed by: EMILIE PURCELL DO As needed Albuterol Sulfate (Ventolin HFA Inhaler) 200 Puff/18 Gm Inhaler 1-2 PUFFS INH DIRECTED PRN PRN For Wheezing Prescribed by: GABRIELLE MAURO DO Benzonatate (Benzonatate) 100 Mg Capsule 100 MG PO TID PRN PRN For Cough Prescribed by: CLEMENT LEWIS MD Followup Plan Discharge Diet: Heart Healthy, Diabetic Discharge Activity: Limited until seen by PCP Follow-up with PCP in: 1 week Provider: Felicia Park MD Follow-up in: 4 weeks Time spent 60 minutes Emilie Purcell DO Aug 19, 2016 16:38
--- NOTE | 2016-08-19 18:08 | NUR ---
Discharge Note Discharge paperwork discussed with pt, home meds, follow-up appointments. Printed care notes on QVar, COPD, and inhaler use. Pt refused education and was verablly abusive to this RN during discharge process. Pt family (daughter & son-in-law) at bedside for discharge information. Information provided to them for a cold weather alf. No IV to be taken out. Pt left in stable condition with all his belongings (including personal O2 tank) at 1800 with daughter.
[2016-09-04] MEDS ORDERED: Heparin 5,000 Unit/mL Inj IVPUSH PRN (00:25)
[2016-09-04] MEDS ORDERED: Heparin 25K Unit/500mL 0.45 NS 25,000 UNIT in IV Premix 1 EACH IV SCH (00:25)
== END 2016-08-19 18:00 | disposition home or self-care (01) | DRG 190 ==
LOC: SED 16:15 → OBSVTOIN 20:32 → OSC 20:32
PROVIDERS: ADMIT Hospitalist; ATTEND Hospitalist
PROC: 4A033R1 Measurement of Arterial Saturation, Peripheral, Percutaneous Approach (ICD-10-PCS; principal; 2016-08-16)
DX: J44.1 Chronic obstructive pulmonary disease with (acute) exacerbation (principal); J18.9 Pneumonia, unspecified organism; J96.11 Chronic respiratory failure with hypoxia; I50.42 Chronic combined systolic (congestive) and diastolic (congestive) heart failure; I25.10 Atherosclerotic heart disease of native coronary artery without angina pectoris; E11.65 Type 2 diabetes mellitus with hyperglycemia; E78.5 Hyperlipidemia, unspecified; Z99.81 Dependence on supplemental oxygen; Z79.82 Long term (current) use of aspirin; Z79.4 Long term (current) use of insulin; Z87.891 Personal history of nicotine dependence; I25.2 Old myocardial infarction; Z91.19 Patient's noncompliance with other medical treatment and regimen

== ENCOUNTER 2016-08-20 07:56 | Emergency (ER) | payer MEDICARE ==
[~2016-08-20 07:56] MED LIST changes: +ASPI81TA3 PO; +ATOR20TA65 PO; +BECL8.7A6 INHALATION; +BENZ100C8 PO
[2016-08-20 08:05] VITALS: BP 151/90; PULSE 114; RESP 32; O2SAT 94
[2016-08-20] MEDS ORDERED: Albuterol-Ipratropium 3 mL Inhalation Solution ONE (08:18)
[2016-08-20] MEDS ORDERED: Albuterol-Ipratropium 3 mL Inhalation Solution NEB ONE (08:20)
[2016-08-20] MEDS ORDERED: Albuterol-Ipratropium 3 mL Inhalation Solution NEB SCH (08:20)
--- NOTE | 2016-08-20 08:21 | ED.REPORT ---
HPI-General Illness Date of Service Aug 20, 2016 ED Provider: Christiano Stern MD Pt is a 66 y/o male w/ a hx of COPD, CHF, CAD, HTN, hyperlipidemia, diabetes, presenting to the ED c/o SOB onset today. He was treated with a DuoNeb prior to interview and his symptoms have resolved and he would like to go home. He denies CP, fever, cough, nausea, vomiting. Of note, the patient is a very frequent ED visitor and has been admitted numerous times for COPD exacerbations. He has had 9 ED visits with 7 hospital admissions within the past 30 days. Each time he arrives, he refuses to get into a gown, hospital bed , or cooperate with hospital staff and is verbally abusive. Nursing Notes Stated Complaint: SOB Chief Complaint: Respiratory Distress Nursing Notes Reviewed: Yes Allergies: Coded Allergies: vancomycin (Verified Allergy, Intermediate, Rash,Itching,, 08/20/16) Per Q: Pt should tolerates vancomycin as long as the rate is slow Scheduled Amlodipine (Amlodipine) 5 Mg Tablet 5 MG PO DAILY Aspirin Chew (Aspirin Chew) 81 Mg Chew 81 MG PO DAILY Atorvastatin Calcium (Atorvastatin Calcium) 20 Mg Tablet 20 MG PO HS Azithromycin (Zithromax) 250 Mg Tablet 250 MG PO DAILY Beclomethasone Dipropionate (Qvar) 8.7 Gm Aer.w.adap 1 PUFF INHALATION BID Clopidogrel (Clopidogrel) 75 Mg Tablet 75 MG PO DAILY Glipizide (Glipizide) 5 Mg Tablet 5 MG PO BIDAC Insuln Asp Prt/Insulin Aspart (NovoLOG 70/30 U100 Insulin Flexpen) 100 Unit/Ml Unit 12 UNIT SUBQ BID Lisinopril (Lisinopril) 5 Mg Tablet 5 MG PO DAILY Metformin (Glucophage) 1,000 Mg Tablet 1,000 MG ORAL BID Metoprolol Tartrate (Metoprolol Tartrate) 75 Mg Tablet 75 MG PO BID Prednisone (PredniSONE) 10 Mg Tablet 10 MG PO DAILY take 4 tabs orally for 2 days, 2 tabs for 3 days, 1 tab for 3 days, then 1/2 tab for 4 days Sertraline HCl (Sertraline) 50 Mg Tablet 25 MG PO DAILY Scheduled PRN Albuterol Sulfate (Ventolin HFA Inhaler) 200 Puff/18 Gm Inhaler 1-2 PUFFS INH DIRECTED PRN PRN For Wheezing Benzonatate (Benzonatate) 100 Mg Capsule 100 MG PO TID PRN PRN For Cough General Time Seen by MD: 08:13 Chief Complaint Other (SOB) Hx Obtained From: Patient Arrived By: Wheelchair Sudden in Onset?: No Recent Healthcare: Recent doctor visit, Recent hospitalization, Recent testing , Previous diagnosis, Prior workup Similar Sx Previous: Yes Past Medical History Past Medical History Notes: PCP: Dr. James Frequent hospital admissions for COPD exacerbations Past Medical History CAD, Non ST elevation [place], August 2013 Left lower extremity cellulitis Hypertriglyceridemia 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" Multiple visits of COPD with exacerbation (patient on chronic O2 2-3 L) History of paroxysmal atrial tachycardia Chronic CHF with systolic and diastolic dysfunction, echo August 2013 with an decreased left ventricular ejection fraction History of nonadherence to medical treatment Chronic venous insufficiency Hx cellulitis Reports: COPD, Congestive heart failure, Diabetes mellitus, Hyperlipidemia, Hypertension Reports: Obesity Past Surgical History None Family History Reports: Diabetes mellitus Smoking History Former Smoker Social History Patient is currently living in his car Alcohol Use: Denies alcohol use Drug Use: Denies drug use Other Social History: Poor social support, Frequent ED visitor, Homeless 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 Physical Exam Vital Signs Vital Signs Date Time Temp Pulse Resp B/P Pulse Ox O2 Delivery O2 Flow Rate FiO2 08/20/16 08:05 35.7 114 32 151/90 94 Nasal Cannula 3 Initial VS: Reviewed, Vital signs abnormal Head / Eyes: Atraumatic, Normocephalic, PERRL ENT: Mucous membranes moist, Conjunctiva normal, No scleral icterus Neck: Supple, Full range of motion Cardiovascular: Regular rate & rhythm, Heart sounds normal, Intact distal pulses Abdomen / GI: Soft Extremities: Vascular intact Skin: Warm, Dry, No cyanosis Neurologic: Alert, Oriented, Nonfocal Psychiatric: Mood/affect normal, Behavior normal, Normal thought content General/Constitutional: Awake, Alert, No acute distress, Cooperative, Not toxic appearing Respiratory / Chest: Atraumatic, No respiratory distress, No retractions Coarse breath sounds bilaterally Prolonged expiratory phase Diffuse wheezing Interpretation & Diagnostics X-Ray Chest Interpretation Chest Xray Interpretation: IMPRESSION: Persistent and relatively unchanged appearance of bibasilar opacities compared to 08/16/16. Findings are likely related to mild residual pneumonia and continued interval followup for resolution is recommended. Dictated by: Katlin Hatfield M.D. on 08/20/2016 at 9:22 Approved by: Katlin Hatfield M.D. on 08/20/2016 at 9:22 View: Portable, AP & lat Interpretation / Wet Read by: Interpret - Radiologist Re-Eval/Medical Decision Med Decision/Clinical Course Pt is a 66 y/o male w/ a hx of COPD, CHF, CAD, HTN, hyperlipidemia, diabetes, presenting to the ED c/o SOB onset today. He was treated with a DuoNeb prior to interview and his symptoms have resolved and he would like to go home. He denies CP, fever, cough, nausea, vomiting. Of note, the patient is a very frequent ED visitor and has been admitted numerous times for COPD exacerbations. He has had 9 ED visits with 7 hospital admissions within the past 30 days. Each time he arrives, he refuses to get into a gown, hospital bed , or cooperate with hospital staff and is verbally abusive. Today the patient is quite pleasant though still refuses to undress or get out of his wheelchair. He reports that he feels better like to be discharged. Chest x-ray demonstrated no evidence of acute cardiopulmonary process. He has good oxygen saturation on baseline O2 by nasal cannula and is speaking in full sentences with no apparent distress. There is no evidence of pneumonia or acute cardiogenic pulmonary edema. He states that he started tapering off prednisone and does not want to be started back on a higher dose. He was seen by our group social worker and will follow up later today with his case coordinator over at [place] regarding housing options. My suspicion is relatively low that his presentation today is related to an acute cardiac process. That being said, he refuses laboratory studies or admission and requests to be discharged. He demonstrates decisional capacity. He understands the risks associated with his decision. Follow-up and return precautions were reviewed in detail the patient was discharged in stable condition. He was urged to come back right away should he develop any new or worsening symptoms. He will continue his outpatient nebulizer treatments. Time of Eval: 09:53 Patient Status: Condition resolved, Complete relief Re-Evaluation/Progress Note: Pt rechecked. Informed pt of plan for treatment. Pt understands and agrees with plan for treatment. F/U and RTER warnings given. All questions addressed. Counseled Regarding: Diagnosis, Need for follow-up, When/why to return to ED Discharge & Departure Primary Impression: Shortness of breath Additional Impressions: COPD exacerbation Dyspnea on exertion Noncompliance by refusing intervention or support Disposition: Home Discharge Condition All VS Reviewed: Yes Condition: Stable Referrals: Yumiko James MD (PCP) Scribe Attestation Portions of this note were transcribed by Ramakrishna Clay. I, Dr. Stern personally performed the history, physical exam and medical decision-making; I reviewed and confirmed the accuracy of the information in the transcribed note. Signed by Ramakrishna Clay - Anushaibe - 08/20/16 - 0900 copies to: Yumiko James MD, Beck O MD Aug 20, 2016 08:21 RAMAKRISHNA CLAY Aug 20, 2016 09:01
--- NOTE | 2016-08-20 09:25 | DRSVH ---
PROCEDURE: X-RAY CHEST, TWO VIEWS ([id number]) INDICATIONS: DYSPNEA TECHNIQUE: 2 views of the chest were acquired. COMPARISON: [facility], CR, XR CHEST 1VW (PORTABLE), 08/16/2016, 17:36. FINDINGS: Surgical changes and devices: None. Lungs and pleura: Linear areas of opacity are present within the bases bilaterally, unchanged. Mediastinum: Mediastinal contours are normal. Heart size is normal. Bones and chest wall: No suspicious bony abnormalities. Soft tissues appear unremarkable. IMPRESSION: Persistent and relatively unchanged appearance of bibasilar opacities compared to 08/16/16. Findings are likely related to mild residual pneumonia and continued interval followup for resolutio n is recommended. Dictated by: Katlin Hatfield M.D. on 08/20/2016 at 9:22 Approved by: Katlin Hatfield M.D. on 08/20/2016 at 9:22
== END 2016-08-20 10:02 | disposition home or self-care (01) ==
LOC: SED 07:56
DX: J44.1 Chronic obstructive pulmonary disease with (acute) exacerbation (principal); I50.9 Heart failure, unspecified; I25.10 Atherosclerotic heart disease of native coronary artery without angina pectoris; I10 Essential (primary) hypertension; E78.5 Hyperlipidemia, unspecified; E11.9 Type 2 diabetes mellitus without complications; Z79.82 Long term (current) use of aspirin; Z79.4 Long term (current) use of insulin; Z87.891 Personal history of nicotine dependence; Z59.0 Homelessness; Z99.81 Dependence on supplemental oxygen; Z79.84 Long term (current) use of oral hypoglycemic drugs; Z88.1 Allergy status to other antibiotic agents
CPT/HCPCS: 71020; 90791; 99284; J7620

== ENCOUNTER 2016-08-20 15:11 | Emergency (ER) | payer MEDICARE ==
[~2016-08-20] VITALS: Ht 170.2 cm; Wt 97.7 kg
[2016-08-20 15:21] VITALS: BP 144/87; PULSE 98; RESP 20; O2SAT 92
--- NOTE | 2016-08-20 15:34 | ED.REPORT ---
HPI-Dyspnea / Wheezing Date of Service Aug 20, 2016 ED Provider: Antonio Chowdhury MD Pt is a 66 y/o male with a history of frequent hospital admissions for COPD exacerbations presents to the ER complaining of SOB which worsens when walking. Pt was most recently in the ER an hour ago. Pt family reports that the pt was walking more then usual today when he experienced SOB. Pt is on oxygen and has used his nebulizer four times today. Pt is prescribed prednisone but does not take it. Pt denies fever, edema, chest pain, and cough. Pt has not taken prednisone today. Pt would not let staff take his temperature, was inappropriate toward staff and used abusive language. Pt's first request was to have doctor shoot him. Nursing Notes Stated Complaint: SOB Chief Complaint: General Complaint Nursing Notes Reviewed: Yes (MONTAJ not reconciled) Allergies: Coded Allergies: vancomycin (Verified Allergy, Intermediate, Rash,Itching,, 08/20/16) Per Q: Pt should tolerates vancomycin as long as the rate is slow Scheduled Amlodipine (Amlodipine) 5 Mg Tablet 5 MG PO DAILY Aspirin Chew (Aspirin Chew) 81 Mg Chew 81 MG PO DAILY Atorvastatin Calcium (Atorvastatin Calcium) 20 Mg Tablet 20 MG PO HS Azithromycin (Zithromax) 250 Mg Tablet 250 MG PO DAILY Beclomethasone Dipropionate (Qvar) 8.7 Gm Aer.w.adap 1 PUFF INHALATION BID Clopidogrel (Clopidogrel) 75 Mg Tablet 75 MG PO DAILY Glipizide (Glipizide) 5 Mg Tablet 5 MG PO BIDAC Insuln Asp Prt/Insulin Aspart (NovoLOG 70/30 U100 Insulin Flexpen) 100 Unit/Ml Unit 12 UNIT SUBQ BID Lisinopril (Lisinopril) 5 Mg Tablet 5 MG PO DAILY Metformin (Glucophage) 1,000 Mg Tablet 1,000 MG ORAL BID Metoprolol Tartrate (Metoprolol Tartrate) 75 Mg Tablet 75 MG PO BID Prednisone (PredniSONE) 10 Mg Tablet 10 MG PO DAILY take 4 tabs orally for 2 days, 2 tabs for 3 days, 1 tab for 3 days, then 1/2 tab for 4 days Sertraline HCl (Sertraline) 50 Mg Tablet 25 MG PO DAILY Scheduled PRN Albuterol Sulfate (Ventolin HFA Inhaler) 200 Puff/18 Gm Inhaler 1-2 PUFFS INH DIRECTED PRN PRN For Wheezing Benzonatate (Benzonatate) 100 Mg Capsule 100 MG PO TID PRN PRN For Cough General Time Seen by MD: 15:28 Chief Complaint Shortness of breath Hx Obtained From: Patient Arrived By: Walk-in Sudden in Onset?: Yes Onset Occurred: Just prior to arrival Symptom Duration: Since onset Severity: Current: No pain currently Severity: Maximum: No pain Similar Sx Previous: Yes Past Medical History Past Medical History Notes: PCP: Dr. 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" Multiple visits of COPD with exacerbation (patient on chronic O2 2-3 L) History of paroxysmal atrial tachycardia Chronic CHF with systolic and diastolic dysfunction, echo August 2013 with an decreased left ventricular ejection fraction History of nonadherence to medical treatment Chronic venous insufficiency Hx cellulitis Reports: COPD, Congestive heart failure, Diabetes mellitus, Hyperlipidemia, Hypertension Reports: Obesity Past Surgical History None Family History Reports: Diabetes mellitus Smoking History Former Smoker Social History Patient is currently living in his car Alcohol Use: Denies alcohol use Drug Use: Denies drug use Other Social History: Poor social support, Frequent ED visitor, Homeless 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 Physical Exam Initial Vital Signs Vital Signs (First) Date Time Temp Pulse Resp B/P Pulse Ox O2 Delivery O2 Flow Rate FiO2 08/20/16 15:21 98 20 144/87 92 Nasal Cannula 2 08/20/16 16:04 36.7 Initial VS: Reviewed, Vital signs normal General/Constitutional: Awake, Alert, No acute distress does not appear in visible distress semi hostile refuses to get in gown and gurney refused to have temp taken inappropriate and abusive language toward staff first request was to have doc shoot him appears in baseline compared to previous visits Neck: Atraumatic, Supple Respiratory / Chest: Atraumatic, No respiratory distress no respiratory distress Cardiovascular: Heart rate NL, Regular rhythm, Heart sounds NL, No gallop, No murmurs Lower Ext Edema: Positive: Ankle (2+ edema of ankles) Lower Extremity / Pelvis / MS: No deformity (2+ edema in ankles, chronic venous insufficiency) Re-Eval/Medical Decision Med Decision/Clinical Course This is a 66-year-old male marked COPD he lives out of his car and is well- known to multitude of presentations and admissions. Patient has had multiple admissions in the past 2 months, in fact was just discharged yesterday, was also seen earlier in the emergency department today. He presents now because he got short of breath when he did not uses oxygen and walked a long the longest he as walked without assistance. He indicated that he developed shortness of breath, and so he is brought back. He presents now is rested his breathing feels pretty close back to normal. He some nebulizers in his car. He has not taken the prednisone he is prescribed yesterday, he has not filled Qvar inhaler he was prescribed yesterday, and he called to make an appointment with the can cleaner as recommended. Patient was once again fairly ornery-he refused to allow temperature be taken initially, he again has always refused to get into a gown or gurney to facilitate exam inappropriateness language to staff period. like for his multiple previous visits where I have seen him, his first comment to me is he wants me to shoot him. He is not appeared in distress, and appears at his baseline at present. Not febrile. He is on chronic oxygen and oxygen adequately. The patient wanted another neb and received this. He was ultimately agreed to take a dose of prednisone as he had taken the prescribed dose yesterday he was observed remained stable. He does not think he needs to be admitted, I do not think he needs to be admitted, he was seen by the ASSISTANT TENNIS PROFESSIONAL as efforts remain under weight facilitate housing placement. The patient did well. He is being discharged in stable condition. Source of Hx: Old records Differential Diagnosis: Positive: COPD exacerbation, Negative: Acute coronary syndrome, Airway obstruction, Carbon monoxide poisoning, Exercise induced asthma, PSVT, Pneumothorax, Pulmonary embolism, Respiratory failure Discharge & Departure Impression: Primary Impression: COPD (chronic obstructive pulmonary disease) COPD type: COPD with acute exacerbation Qualified Code: J44.1 - Chronic obstructive pulmonary disease with (acute) exacerbation Referrals: Yumiko James MD (PCP) Antonio Chowdhury MD Aug 20, 2016 15:34 ELIJAH BLOCK Aug 20, 2016 15:52
[2016-08-20] MEDS ORDERED: Albuterol 2.5 mg/3 mL Inhalation Solution NEB ONE (15:45)
[2016-08-20] MEDS ORDERED: Ipratropium 0.02% 0.5 mg/2.5 mL Inhalation Solution NEB ONE (15:45)
[2016-08-20] MEDS ORDERED: predniSONE 20 mg Tablet PO ONE (15:45)
[2016-08-20 16:11] VITALS: PULSE 109; RESP 22; O2SAT 94
== END 2016-08-20 17:29 | disposition home or self-care (01) ==
LOC: SED 15:11
DX: J44.1 Chronic obstructive pulmonary disease with (acute) exacerbation (principal); I25.2 Old myocardial infarction; I25.10 Atherosclerotic heart disease of native coronary artery without angina pectoris; E78.1 Pure hyperglyceridemia; I50.42 Chronic combined systolic (congestive) and diastolic (congestive) heart failure; E11.9 Type 2 diabetes mellitus without complications; I11.0 Hypertensive heart disease with heart failure; Z87.891 Personal history of nicotine dependence; Z59.0 Homelessness; Z99.81 Dependence on supplemental oxygen
CPT/HCPCS: 90791; 94640; 94664; 99284; J7613

== ENCOUNTER 2016-08-23 08:02 | Emergency (ER) | payer MEDICARE ==
[~2016-08-23] VITALS: Ht 170.2 cm; Wt 100.0 kg
--- NOTE | 2016-08-23 08:11 | ED.REPORT ---
HPI-Dyspnea / Wheezing Date of Service Aug 23, 2016 ED Provider: Pt is a 66 y/o male with a history of frequent hospital admissions for COPD exacerbations presents to the ER complaining of SOB. Pt states that he needs food and hasn't eaten since yesterday. Pt has recently taken his prednisone but doesn't know where his other medications are in his car. Pt took one breathing treatment prior to arrival. Nursing Notes Stated Complaint: SOB Nursing Notes Reviewed: Yes Allergies: Coded Allergies: vancomycin (Verified Allergy, Intermediate, Rash,Itching,, 08/20/16) Per Dr. Sorto: Pt should tolerates vancomycin as long as the rate is slow Scheduled Amlodipine (Amlodipine) 5 Mg Tablet 5 MG PO DAILY Aspirin Chew (Aspirin Chew) 81 Mg Chew 81 MG PO DAILY Atorvastatin Calcium (Atorvastatin Calcium) 20 Mg Tablet 20 MG PO HS Azithromycin (Zithromax) 250 Mg Tablet 250 MG PO DAILY Beclomethasone Dipropionate (Qvar) 8.7 Gm Aer.w.adap 1 PUFF INHALATION BID Clopidogrel (Clopidogrel) 75 Mg Tablet 75 MG PO DAILY Glipizide (Glipizide) 5 Mg Tablet 5 MG PO BIDAC Insuln Asp Prt/Insulin Aspart (NovoLOG 70/30 U100 Insulin Flexpen) 100 Unit/Ml Unit 12 UNIT SUBQ BID Lisinopril (Lisinopril) 5 Mg Tablet 5 MG PO DAILY Metformin (Glucophage) 1,000 Mg Tablet 1,000 MG ORAL BID Metoprolol Tartrate (Metoprolol Tartrate) 75 Mg Tablet 75 MG PO BID Prednisone (PredniSONE) 10 Mg Tablet 10 MG PO DAILY take 4 tabs orally for 2 days, 2 tabs for 3 days, 1 tab for 3 days, then 1/2 tab for 4 days Sertraline HCl (Sertraline) 50 Mg Tablet 25 MG PO DAILY Scheduled PRN Albuterol Sulfate (Ventolin HFA Inhaler) 200 Puff/18 Gm Inhaler 1-2 PUFFS INH DIRECTED PRN PRN For Wheezing Benzonatate (Benzonatate) 100 Mg Capsule 100 MG PO TID PRN PRN For Cough General Time Seen by MD: 08:10 Chief Complaint Shortness of breath Hx Obtained From: Patient Arrived By: Walk-in Sudden in Onset?: Yes Symptom Duration: Since onset Severity: Current: No pain currently Severity: Maximum: No pain Recent Healthcare: Recent hospitalization Similar Sx Previous: Yes Past Medical History Past Medical History Notes: PCP: Dr. 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" Multiple visits of COPD with exacerbation (patient on chronic O2 2-3 L) History of paroxysmal atrial tachycardia Chronic CHF with systolic and diastolic dysfunction, echo August 2013 with an decreased left ventricular ejection fraction History of nonadherence to medical treatment Chronic venous insufficiency Hx cellulitis Reports: COPD, Congestive heart failure, Diabetes mellitus, Hyperlipidemia, Hypertension Reports: Obesity Past Surgical History None Family History Reports: Diabetes mellitus Smoking History Former Smoker Social History Patient is currently living in his car Alcohol Use: Denies alcohol use Drug Use: Denies drug use Other Social History: Poor social support, Frequent ED visitor, Homeless 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 Physical Exam Initial Vital Signs Vital Signs (First) Date Time Temp Pulse Resp B/P Pulse Ox O2 Delivery O2 Flow Rate FiO2 08/23/16 08:12 36.9 108 36 122/100 91 Room Air Initial VS: Reviewed Head / Eyes: Atraumatic, Normocephalic, PERRL ENT: Mucous membranes moist, Conjunctiva normal, No scleral icterus Skin: Warm, Dry, No cyanosis Neurologic: Alert, Oriented, Nonfocal Psychiatric: Mood/affect normal General/Constitutional: Awake, Alert, No acute distress Neck: Atraumatic, Supple, Non-tender Rales / Rhonchi: Positive: Rales diffuse (course ) Cardiovascular: Heart rate NL, Regular rhythm, Heart sounds NL Re-Eval/Medical Decision Med Decision/Clinical Course Patient declines any particular medication management. Patient lives out of his car and is hungry. He states that he has his medications in the car and declines any other intervention. He is encouraged to return to ER as needed for medical treatment. Counseled Regarding: Diagnosis, Need for follow-up, When/why to return to ED Discharge & Departure Impression: Primary Impression: Shortness of breath Disposition: Home Discharge Condition All VS Reviewed: Yes Condition: Stable Additional Instructions: Thank you for seeking care at emergency room. Our primary goal today in the ED was to evaluate you for any life-threatening conditions. Your evaluation was reassuring. You should return to the ED immediately if you develop fevers, vomiting, cough, shortness of breath, chest pain, lightheadedness, weakness or any other concerning signs or symptoms. Thank you for letting us partake in your care today. Referrals: Yumiko James MD (PCP) Scribe Attestation Portion of this note were transcribed by Silvia Barrios and Elijah Maier. I, Dr. Petra Chan, personally performed the history, physcial exam, and medical decision- making: I reviewed and confirmed the accuracy for the information in the transcribed note. Signed by: Elijah Maier and avila Vargas, 08/20/16 0930. Duke Alberts DO Aug 23, 2016 08:11 ELIJAH MAIER Aug 23, 2016 08:27 Silvia Barrios Aug 23, 2016 09:37
[2016-08-23 08:12] VITALS: BP 122/100; PULSE 108; RESP 36; O2SAT 91
[2016-08-23 09:48] VITALS: BP 134/76; PULSE 104; RESP 26; O2SAT 90
[2016-08-23 10:16] VITALS: BP 134/76; PULSE 104; RESP 26; O2SAT 90
== END 2016-08-23 09:50 | disposition home or self-care (01) ==
LOC: SED 08:02
DX: R06.02 Shortness of breath (principal); J44.9 Chronic obstructive pulmonary disease, unspecified; I10 Essential (primary) hypertension; I50.9 Heart failure, unspecified; I25.10 Atherosclerotic heart disease of native coronary artery without angina pectoris; Z86.39 Personal history of other endocrine, nutritional and metabolic disease; Z87.891 Personal history of nicotine dependence; Z79.4 Long term (current) use of insulin; Z79.51 Long term (current) use of inhaled steroids; Z79.52 Long term (current) use of systemic steroids; Z79.82 Long term (current) use of aspirin; Z59.0 Homelessness; Z88.1 Allergy status to other antibiotic agents

== ENCOUNTER 2016-09-01 13:33 | Emergency (ER) | payer MEDICARE ==
[~2016-09-01] VITALS: Ht 170.2 cm; Wt 97.7 kg
[2016-09-01 13:39] VITALS: BP 125/80; PULSE 129; RESP 20; O2SAT 90
[2016-09-01 14:24] LABS: BASOPHILS % (AUTO) 0.5 % (0-3); EOSINOPHILS % (AUTO) 3.3 % (0-5); MONOCYTES % (AUTO) 8.1 % (4-12); Mean Corpuscular Hemoglobin 28.9 pg (27.0-35.0); Mean Corpuscular Volume 88.1 fL (81-100); NEUTROPHILS % (AUTO) 75.5 % (40-74); Platelet Count 214 bil/L (150-400)
[2016-09-01 15:23] LABS: Magnesium 1.7 mg/dL (1.6-2.6)
[2016-09-01 15:24] LABS: TROPONIN T < 0.010 ug/L (0.0-0.011)
--- NOTE | 2016-09-01 15:31 | DRSVH ---
PROCEDURE: X-RAY CHEST ONE VIEW, PORTABLE ([id number]) INDICATIONS: chest pain TECHNIQUE: One view of the chest was acquired. COMPARISON: [facility], CR, XR CHEST 2VW, 08/20/2016, 8:45. FINDINGS: Surgical changes and devices: None. Lungs and pleura: Persistent appearance of bibasilar opacities, with slight increased prominence in t he right base. Mediastinum: Mediastinal contours appear normal. Heart size is normal. Bones and chest wall: No suspicious bony lesions. Overlying soft tissues appear unremarkable. IMPRESSION: Persistent, slightly increased appearance of bibasilar opacities particularly on the righ t as above. Developing superimposed acute air space disease such as pneumonia and/or atelectasis is s uspected. Dictated by: Katlin Hatfield M.D. on 09/01/2016 at 15:30 Approved by: Katlin Hatfield M.D. on 09/01/2016 at 15:30
[2016-09-01 15:49] VITALS: BP 133/89; PULSE 117; RESP 18; O2SAT 89
[2016-09-01] MEDS ORDERED: 0.9% Sodium Chloride 1,000 ML IV ONE (16:05)
[2016-09-01] MEDS ORDERED: _Azithromycin 250 mg Tablet PO SCH (16:30)
--- NOTE | 2016-09-01 16:37 | ED.REPORT ---
HPI-Chest Pain 40 and Over Date of Service Sep 01, 2016 ED Provider: Ranjeet Howell MD History of Present Illness: A 66 year old male with a history of CHF, COPD, diabetes, hypertension, and CAD presents to the ED complaining of 4 history of extreme xiphoidal chest pain that has since subsided without any medications. He is currently homeless and living in his car accompanied by his daughter and her boyfriend. He has other mild complaints of itchy and tender spot in his chin described as a skin infection, testicular pain, and difficulty urinating since he has to stand up. He denies fever, chills,, abdominal pain, constipation, diarrhea. He reports chronic shortness of breath. Nursing Notes Stated Complaint: EXTREME CHEST PAIN,SOB Chief Complaint: Chest Pain Nursing Notes Reviewed: Yes Allergies: Coded Allergies: vancomycin (Verified Allergy, Intermediate, Rash,Itching,, 09/01/16) Per Q: Pt should tolerates vancomycin as long as the rate is slow Scheduled Amlodipine (Amlodipine) 5 Mg Tablet 5 MG PO DAILY Aspirin Chew (Aspirin Chew) 81 Mg Chew 81 MG PO DAILY Atorvastatin Calcium (Atorvastatin Calcium) 20 Mg Tablet 20 MG PO HS Azithromycin (Zithromax) 250 Mg Tablet 250 MG PO DAILY Beclomethasone Dipropionate (Qvar) 8.7 Gm Aer.w.adap 1 PUFF INHALATION BID Clopidogrel (Clopidogrel) 75 Mg Tablet 75 MG PO DAILY Glipizide (Glipizide) 5 Mg Tablet 5 MG PO BIDAC Insuln Asp Prt/Insulin Aspart (NovoLOG 70/30 U100 Insulin Flexpen) 100 Unit/Ml Unit 12 UNIT SUBQ BID Lisinopril (Lisinopril) 5 Mg Tablet 5 MG PO DAILY Metformin (Glucophage) 1,000 Mg Tablet 1,000 MG ORAL BID Metoprolol Tartrate (Metoprolol Tartrate) 75 Mg Tablet 75 MG PO BID Prednisone (PredniSONE) 10 Mg Tablet 10 MG PO DAILY take 4 tabs orally for 2 days, 2 tabs for 3 days, 1 tab for 3 days, then 1/2 tab for 4 days Sertraline HCl (Sertraline) 50 Mg Tablet 25 MG PO DAILY Scheduled PRN Albuterol Sulfate (Ventolin HFA Inhaler) 200 Puff/18 Gm Inhaler 1-2 PUFFS INH DIRECTED PRN PRN For Wheezing Benzonatate (Benzonatate) 100 Mg Capsule 100 MG PO TID PRN PRN For Cough General Time Seen by MD: 15:00 Chief Complaint Chest pain Hx Obtained From: Patient Sudden in Onset?: Yes Past Medical History Past Medical History Notes: PCP: Dr. 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" Multiple visits of COPD with exacerbation (patient on chronic O2 2-3 L) History of paroxysmal atrial tachycardia Chronic CHF with systolic and diastolic dysfunction, echo August 2013 with an decreased left ventricular ejection fraction History of nonadherence to medical treatment Chronic venous insufficiency Hx cellulitis Reports: COPD, Congestive heart failure, Diabetes mellitus, Hyperlipidemia, Hypertension Reports: Obesity Past Surgical History None Family History Reports: Diabetes mellitus Smoking History Former Smoker Social History Patient is currently living in his car Alcohol Use: Denies alcohol use Drug Use: Denies drug use Other Social History: Poor social support, Frequent ED visitor, Homeless 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 HEENT: Prescription eyeglasses in place. Normocephalic, atraumatic. External ears without defect. Pupils equal, round, and reactive to light and accommodation. Anicteric sclerae, moist conjunctivae, and no lid lag. Oropharynx free of erythema and cobble stoning with moist mucosa. Neck: Supple with full range of motion. No jugular venous distension. No bruits. No lymphadenopathy or thyromegaly. Cardiovascular: Regular rate and rhythm with no murmurs, rubs, or gallops appreciated. Pulmonary: Clear to auscultation bilaterally with no crackles, and mild wheezes present wheezes. Normal respiratory effort with no use of accessory muscles. Abdomen: Bowel tones present. Soft, nontender, nondistended. No hepatosplenomegaly or masses appreciated. Extremities: No clubbing, cyanosis, edema, or lymphadenopathy appreciated. Skin: Normal temperature, turgor, and texture; no rash, ulcers, or subcutaneous nodules appreciated. Neurological: Cranial nerves grossly intact. Normal muscle strength, tone, and bulk. Reflexes, coordination, and sensory function within normal limits. No known gait impairment. Psychiatric: Normal mood and affect at times it washes awaiting the wanes from a very combative to careful. Alert and oriented to person, place, and time. Physical Exam Physical Exam Notes: General: No acute distress, well-developed, well-nourished, appropriately interactive HEENT: Normocephalic, atraumatic. External ears without defect. Pupils equal, round, and reactive to light and accommodation. Anicteric sclerae, moist conjunctivae, and no lid lag. Oropharynx free of erythema and cobble stoning with moist mucosa. Neck: Supple with full range of motion. No jugular venous distension. No bruits. No lymphadenopathy or thyromegaly. Cardiovascular: Regular rate and rhythm with no murmurs, rubs, or gallops appreciated Pulmonary: Clear to auscultation bilaterally with no crackles, wheezes, or rhonchi. Normal respiratory effort with no use of accessory muscles. Abdomen: Bowel tones present. Soft, nontender, nondistended. No hepatosplenomegaly or masses appreciated. Extremities: No clubbing, cyanosis, edema, or lymphadenopathy appreciated. Skin: Normal temperature, turgor, and texture; no rash, ulcers, or subcutaneous nodules appreciated. Neurological: Cranial nerves grossly intact. Normal muscle strength, tone, and bulk. Reflexes, coordination, and sensory function within normal limits. No known gait impairment. Psychiatric: Normal mood and affect. Alert and oriented to person, place, and time. Initial Vital Signs Vital Signs (First) Date Time Temp Pulse Resp B/P Pulse Ox O2 Delivery O2 Flow Rate FiO2 09/01/16 13:39 36.6 129 20 125/80 90 Room Air Interpretation & Diagnostics Lab Results Interpretation Result Diagram: 09/01/16 1409 09/01/16 1409 Test 09/01/16 14:09 White Blood Count 9.8th/mm3 (3.8-10.1) Red Blood Count 4.70mil/mm3 (4.40-5.80) Hemoglobin 13.6g/dL (13.8-17.2) Hematocrit 41.4% (41.0-50.0) Mean Corpuscular Volume 88.1fL (81-100) Mean Corpuscular Hemoglobin 28.9pg (27.0-35.0) Mean Corpuscular Hemoglobin Concent 32.9% (32.0-37.0) Red Cell Distribution Width 15.9% (12.3-15.4) Platelet Count 214bil/L (150-400) Neutrophils (%) (Auto) 75.5% (40-74) Lymphocytes (%) (Auto) 11.0% (14-46) Monocytes (%) (Auto) 8.1% (4-12) Eosinophils (%) (Auto) 3.3% (0-5) Basophils (%) (Auto) 0.5% (0-3) Sodium Level 139mEq/L (134-144) Potassium Level 4.1mEq/L (3.5-5.2) Chloride Level 100mEq/L (97-108) Carbon Dioxide Level 26mmol/L (18-29) Blood Urea Nitrogen 18mg/dL (8-27) Creatinine 0.80mg/dL (0.76-1.27) Estimat Glomerular Filtration Rate 102mL/min (>59) Glucose Level 382mg/dL (60-99) Calcium Level 8.9mg/dL (8.5-10.1) Magnesium Level 1.7mg/dL (1.6-2.6) Total Bilirubin 0.3mg/dL (0.0-1.2) Aspartate Amino Transf (AST/SGOT) 10U/L (0-50) Alanine Aminotransferase (ALT/SGPT) 18U/L (0-44) Alkaline Phosphatase 60U/L (25-160) Troponin T < 0.010ug/L (0.0-0.011) Pro-B-Type Natriuretic Peptide 428.2pg/mL (0-376) Total Protein 6.3g/dL (6.4-8.4) Albumin 3.8g/dL (3.4-5.0) Re-Eval/Medical Decision Med Decision/Clinical Course Noncardiac chest pain. Negative troponins and negative EKG. Patient is slightly tachycardic and has elevated blood glucose level of 382. He was offered IV fluids and insulin both of which he refused. He was told he had a possible right lower lobe pneumonia which he claims is chronic on chest x-ray. We informed him that we plan to treat as an outpatient with Z-Tyree, five-day course of azithromycin. He became combative after mentioning it is possible skin infection in his tobin, I would forward his daughter left and he decided he no longer wanted treatment. He left before receiving his outpatient medication azithromycin. Discharge & Departure Shift Change Sign-Out Discussed Complaint(s): Yes Laboratory Evaluation: Lab evaluation discussed Imaging Studies: Imaging discussed Response to Therapy: Unchanged Disposition: Home Discharge Condition All VS Reviewed: Yes Condition: Improved Patient Instructions: Chest Pain (ED) Additional Instructions: During you visit to [facility] Emergency Department we obtained blood work for infectious markers, hemoglobin levels, and electrolytes. We obtained chest x-ray which showed a slight lower lobe pneumonia. All your lab values were within normal limits and your imaging showed no acute processes or abnormalities. We will send you home with - 5 day course of Antibiotics (five-day course of azithromycin) Do not hesitate to call emergency services or your primary care physician if you experience any of the following. -High unrelenting fevers. -Uncontrolled vomiting. -Severe hypertension. -Syncope or loss of consciousness. -Chest pain or severe shortness of breath. Continue to take only her home medications as prescribed. Follow up with your primary care physician in 1-2 weeks time following your emergency department visit for medication checks and general well-being. Referrals: Yumiko James MD (PCP) Attending Statement I saw the patient with resident Dr. Marks and independently evaluated patient and agree with plan as above. 66-year-old male history of homelessness, CAD, COPD, CHF, DM presenting with chest pain earlier today. Lasted for 4 hours and resolved prior to arrival. Symptom onset greater than 6 hours prior to arrival. Troponins negative. Chest x-ray possible bibasilar pneumonia versus atelectasis. Low risk PE. Vital signs stable. Recommended treatment with Z- Tyree for possible pneumonia with return precautions. copies to: Yumiko James MD, COREY P DO Sep 01, 2016 15:02 Ranjeet Howell MD Sep 01, 2016 17:52
== END 2016-09-01 16:40 | disposition home or self-care (01) ==
LOC: SED 13:33
DX: R07.89 Other chest pain (principal); R06.02 Shortness of breath; L29.9 Pruritus, unspecified; N50.819 Testicular pain, unspecified; R39.198 Other difficulties with micturition; I11.0 Hypertensive heart disease with heart failure; I50.42 Chronic combined systolic (congestive) and diastolic (congestive) heart failure; E11.65 Type 2 diabetes mellitus with hyperglycemia; J44.9 Chronic obstructive pulmonary disease, unspecified; I25.10 Atherosclerotic heart disease of native coronary artery without angina pectoris; I25.2 Old myocardial infarction; E78.5 Hyperlipidemia, unspecified; E66.9 Obesity, unspecified; Z68.33 Body mass index [BMI] 33.0-33.9, adult; Z87.891 Personal history of nicotine dependence; Z59.0 Homelessness; Z79.82 Long term (current) use of aspirin; Z79.4 Long term (current) use of insulin; Z79.84 Long term (current) use of oral hypoglycemic drugs; Z88.1 Allergy status to other antibiotic agents

== ENCOUNTER 2016-09-01 22:50 | Emergency (ER) | payer MEDICARE ==
[~2016-09-01] VITALS: Ht 170.2 cm; Wt 97.7 kg
[2016-09-01 23:14] VITALS: BP 162/131; PULSE 114; RESP 22; O2SAT 93
--- NOTE | 2016-09-01 23:17 | ED.REPORT ---
HPI-Dyspnea / Wheezing Date of Service Sep 01, 2016 ED Provider: Dr. Jim Cox D.O. A 66 year old male with an extensive medical history including CAD, CHF, diabetes, hypertension, and frequent ED visits for COPD exacerbation presents with increased shortness of breath this evening. He also reports a rash on his chin and purulent eye discharge. He has been intermittently ill over the past two weeks. The patient was seen in the ED earlier today with these symptoms but became impatient and left without all of his medications. He returned because he became frightened at his respiratory symptoms. He is on chronic O2 at home. Nursing Notes Stated Complaint: CHEST PAIN, SHORTNESS OF BREATH Chief Complaint: Respiratory Distress Nursing Notes Reviewed: Yes Allergies: Coded Allergies: vancomycin (Verified Allergy, Intermediate, Rash,Itching,, 09/02/16) Per Q: Pt should tolerates vancomycin as long as the rate is slow Scheduled Amlodipine (Amlodipine) 5 Mg Tablet 5 MG PO DAILY Aspirin Chew (Aspirin Chew) 81 Mg Chew 81 MG PO DAILY Atorvastatin Calcium (Atorvastatin Calcium) 20 Mg Tablet 20 MG PO HS Azithromycin (Zithromax) 250 Mg Tablet 250 MG PO DAILY Beclomethasone Dipropionate (Qvar) 8.7 Gm Aer.w.adap 1 PUFF INHALATION BID Clopidogrel (Clopidogrel) 75 Mg Tablet 75 MG PO DAILY Glipizide (Glipizide) 5 Mg Tablet 5 MG PO BIDAC Insuln Asp Prt/Insulin Aspart (NovoLOG 70/30 U100 Insulin Flexpen) 100 Unit/Ml Unit 12 UNIT SUBQ BID Ketoconazole (Nizoral) 120 Ml Shampoo 120 ML TOP BID Lisinopril (Lisinopril) 5 Mg Tablet 5 MG PO DAILY Metformin (Glucophage) 1,000 Mg Tablet 1,000 MG ORAL BID Metoprolol Tartrate (Metoprolol Tartrate) 75 Mg Tablet 75 MG PO BID Prednisone (PredniSONE) 10 Mg Tablet 10 MG PO DAILY take 4 tabs orally for 2 days, 2 tabs for 3 days, 1 tab for 3 days, then 1/2 tab for 4 days Sertraline HCl (Sertraline) 50 Mg Tablet 25 MG PO DAILY Scheduled PRN Albuterol Sulfate (Ventolin HFA Inhaler) 200 Puff/18 Gm Inhaler 1-2 PUFFS INH DIRECTED PRN PRN For Wheezing Benzonatate (Benzonatate) 100 Mg Capsule 100 MG PO TID PRN PRN For Cough General Time Seen by MD: 23:17 Chief Complaint Shortness of breath Hx Obtained From: Patient Arrived By: Walk-in Sudden in Onset?: No Onset Occurred: Just prior to arrival Symptom Duration: Since onset Severity: Current: No pain currently Severity: Maximum: No pain Associated with: Denies: Fever, Vomiting Pertinent Negative: Relieved by nothing Context Related History: Reports: COPD, Congestive heart failure, Coronary artery disease Recent Healthcare: Recent doctor visit Similar Sx Previous: Yes Past Medical History Past Medical History Notes: PCP: Dr. 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" Multiple visits of COPD with exacerbation (patient on chronic O2 2-3 L) History of paroxysmal atrial tachycardia Chronic CHF with systolic and diastolic dysfunction, echo August 2013 with an decreased left ventricular ejection fraction History of nonadherence to medical treatment Chronic venous insufficiency Hx cellulitis Reports: COPD, Congestive heart failure, Diabetes mellitus, Hyperlipidemia, Hypertension Reports: Obesity Past Surgical History None Family History Reports: Diabetes mellitus Smoking History Former Smoker Social History Patient is currently living in his car Alcohol Use: Denies alcohol use Drug Use: Denies drug use Other Social History: Poor social support, Frequent ED visitor, Homeless 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 Eyes: Reports: Discharge bilateral GI: Denies: Vomiting Neurologic: Denies: Bladder dysfunction, Bowel dysfunction Physical Exam Initial Vital Signs Vital Signs (First) Date Time Temp Pulse Resp B/P Pulse Ox O2 Delivery O2 Flow Rate FiO2 09/01/16 23:14 36.8 114 22 162/131 93 Nasal Cannula 2 Initial VS: Reviewed Head / Eyes: Atraumatic, Normocephalic ENT: Mucous membranes moist Abdomen / GI: Soft, Non-tender Lymphatic: No lymphadenopathy Extremities: Vascular intact, Neuro intact Neurologic: Alert, Oriented, Nonfocal Psychiatric: Mood/affect normal, Behavior normal, Normal thought content General/Constitutional: Awake, Alert, No acute distress Neck: Supple, Full range of motion Respiratory / Chest: Breath sounds = bilat Resp Distress / Stridor: Positive: Resp distress mild Wheezing / Retractions: Positive: Wheezing expiratory (Bilaterally) Cardiovascular: Heart rate NL, Regular rhythm, Heart sounds NL Bilateral lower extremity edema Skin: Warm, Dry Staph infection under tobin Interpretation & Diagnostics Lab Results Interpretation Result Diagram: 09/02/16 0204 09/02/16 0204 Test 09/02/16 02:04 White Blood Count 11.0th/mm3 (3.8-10.1) Red Blood Count 4.49mil/mm3 (4.40-5.80) Hemoglobin 13.0g/dL (13.8-17.2) Hematocrit 39.5% (41.0-50.0) Mean Corpuscular Volume 88.0fL (81-100) Mean Corpuscular Hemoglobin 29.0pg (27.0-35.0) Mean Corpuscular Hemoglobin Concent 32.9% (32.0-37.0) Red Cell Distribution Width 15.7% (12.3-15.4) Platelet Count 196bil/L (150-400) Neutrophils (%) (Auto) 92.1% (40-74) Lymphocytes (%) (Auto) 3.7% (14-46) Monocytes (%) (Auto) 2.2% (4-12) Eosinophils (%) (Auto) 0.5% (0-5) Basophils (%) (Auto) 0.5% (0-3) D-Dimer < 0.5mg/L (<0.50) Sodium Level 130mEq/L (134-144) Potassium Level 4.7mEq/L (3.5-5.2) Chloride Level 93mEq/L (97-108) Carbon Dioxide Level 21mmol/L (18-29) Blood Urea Nitrogen 19mg/dL (8-27) Creatinine 0.68mg/dL (0.76-1.27) Estimat Glomerular Filtration Rate 124mL/min (>59) Glucose Level 525mg/dL (60-99) Lactic Acid Level 2.0mmol/L (0.4-2.0) Calcium Level 8.6mg/dL (8.5-10.1) Total Bilirubin 0.5mg/dL (0.0-1.2) Aspartate Amino Transf (AST/SGOT) 9U/L (0-50) Alanine Aminotransferase (ALT/SGPT) 19U/L (0-44) Alkaline Phosphatase 54U/L (25-160) Troponin T 0.013ug/L (0.0-0.011) Pro-B-Type Natriuretic Peptide 976pg/mL (0-376) Total Protein 6.5g/dL (6.4-8.4) Albumin 3.8g/dL (3.4-5.0) Procalcitonin 0.05ng/mL (See Comment) ECG Interpretation ECG Interpretation: Right and left arm electrode reversal, interpretation assumes no reversal Sinus tachycardia rate 109 Probable lateral infarct, age indeterminate Time: 00:28 Interpreted by: ED physician Re-Eval/Medical Decision Med Decision/Clinical Course 66-year-old completely noncompliant patient evaluated for shortness of breath, with some of the best numbers we have seen for him recently. He is improved with nebulizers and was given a recent course of steroids. Sugar is been problematic and always is. He was given Lantus here after two doses of IV regular insulin. There is no evidence of acidosis. He is discharged in stable condition, uncooperative with care. This is a very unfortunate 66-year-old male who has rather severe COPD as well as a bad attitude towards hospitals, physicians and nurses. He has been seen many times for COPD and probably congestive heart failure. There are times where he comes in where he is absolutely atrocious to nursing staff and he is rude and belligerent. I actually find and be rather pleasant on this evaluation. He does have moderate respiratory distress with diffuse wheezes bilaterally. Other pertinent findings are looks like staph infection of the on his chin as well as bilateral conjunctivitis. He has a history of positive MRSA screen in the past. EKG did not show any acute ischemic changes. Chest x-ray from earlier today looks a lot like his 49 other chest x-rays have looked. I am going to check some labs and start treatment with DuoNeb and IV steroids. I will put him on doxycycline because this would cover the usual players for COPD as well as his staph infection. He is allergic to vancomycin solicit reasonable choice. Mr. High does not wish to be admitted. He does not wish to have any further cardiac evaluation. He does wish to have his COPD treated. He was having pleuritic chest pain so therefore added a d-dimer in the meantime I treated him with a Percocet. Probably treatments he is looking and feeling better. He has been abusive to staff but he has been rather friendly to me. I think that if his troponin is at his baseline and his d-dimer is negative then he can be discharged home with a course of prednisone and doxycycline. He also needs to use his inhalers. If the d-dimer is elevated I would not hesitate to scan his chest. He spends most of his life in a chair and he has a high risk for pulmonary emboli. Labs are pending at the conclusion of my shift. I will sign the case out to Dr. Zach Monahan. Source of Hx: Old records Re-Evaluation/Progress #1: Time of Eval: 01:57 Patient Status: Condition improved Re-Evaluation/Progress Note: Patient is much improved. Re-Evaluation/Progress #2: Time of Eval: 02:46 Patient Status: Condition improved Re-Evaluation/Progress Note: Patient is moving air much better. He is sitting in his chair eating a cracker. Discussed with patient diagnosis and plan for transfer of care to Dr. Monahan. Patient agrees with plan for care and all questions were addressed. Re-Evaluation/Progress #3: Time of Eval: 05:59 Patient Status: Condition improved Re-Evaluation/Progress Note: Care assumed by Dr. Monahan. Patient's blood sugars have been trending down in the ED, responding to insulin. Patient understands and agrees with the plan to be discharged home. Discharge instructions and follow-up discussed. All questions were addressed. Return to the ED warnings given. Counseled Regarding: Diagnosis, Lab results, Need for follow-up, When/why to return to ED Discharge & Departure Shift Change Sign-Out Patient Care Transferred: Yes Discussed Complaint(s): Yes Laboratory Evaluation: Ordered, not yet done Response to Therapy: Improved Impression: Primary Impression: Acute and chronic respiratory failure ([id number]) Respiratory failure complication: hypoxia Qualified Code: J96.21 - Acute and chronic respiratory failure with hypoxia Additional Impressions: Peripheral edema Staphylococcal infection of skin Diabetes mellitus out of control Hyperglycemia Disposition: Home Discharge Condition All VS Reviewed: Yes Condition: Stable Patient Instructions: How to Use a Nebulizer (ED), Chronic Obstructive Pulmonary Disease (ED) Additional Instructions: Use your inhalers as directed. Take prednisone daily for 5 days. Take doxycycline twice daily for 7 days. This will help her lungs as well as infection on her chin. Apply one drop of the ofloxacin to each eyeball 4 times a day for 5 days. I suspect that both of these are a staph infection. I would like you see your doctor in 24-48 hours. Return if any problems or worsening symptoms. Referrals: Yumiko James MD (PCP) Care Transferred to: Dr. Monahan 0300 Dr. Alberts 0600 Raimundo Attestation Portions of this note were transcribed by Jessica Rodriguez and Zuleika Mayberry. I, Dr. Cox and Dr. Monahan, personally performed the history, physical exam, and medical decision-making; I reviewed and confirmed the accuracy of the information in the transcribed note. Signed by: Raimundo Holder, 09/02/2016, 02:45 Signed by: Raimundo Peralta, 09/02/2016, 05:45 copies to: Yumiko James MD, Todd P DO Sep 01, 2016 23:17 JESSICA RODRIGUEZ Sep 01, 2016 23:25 Zuleika Mayberry Sep 02, 2016 05:35 Zach Monahan MD Sep 02, 2016 06:20
[2016-09-01] MEDS ORDERED: Albuterol-Ipratropium 3 mL Inhalation Solution NEB ONE (23:25)
[2016-09-01] MEDS ORDERED: Albuterol 2.5 mg/3 mL Inhalation Solution NEB ONE (23:25)
[2016-09-01] MEDS ORDERED: MethylprednisoLONE Sodium Succinate 62.5 mg/mL 2 mL Inj IVPUSH ONE (23:25)
[2016-09-01] MEDS ORDERED: Cefepime Inj 2 GM in IV Premix 1 EACH IV ONE (23:25)
[2016-09-01] MEDS ORDERED: Doxycycline Inj 100 MG in Dextrose 5% 100 ML IV ONE (23:25)
[2016-09-01 23:36] VITALS: PULSE 111; RESP 22; O2SAT 92
[2016-09-01] MEDS ORDERED: Cefepime Inj 2,000 MG in Dextrose 5% Minibag Plus 50 ML IV ONE (23:37)
[2016-09-02] MEDS ORDERED: Mupirocin 2% 22 Gm Ointment TOPICAL ONE (00:25)
[2016-09-02] MEDS ORDERED: oxyCODONE-Acetamin 5-325 mg Tablet PO ONE (00:25)
[2016-09-02 02:17] LABS: BASOPHILS % (AUTO) 0.5 % (0-3); EOSINOPHILS % (AUTO) 0.5 % (0-5); MONOCYTES % (AUTO) 2.2 % (4-12); NEUTROPHILS % (AUTO) 92.1 % (40-74); Platelet Count 196 bil/L (150-400)
[2016-09-02 02:45] LABS: TROPONIN T 0.013 ug/L (0.0-0.011)
[2016-09-02] MEDS ORDERED: Insulin Human REGular 300 Unit/3 mL Inj IV SCH ×2 (03:25→04:35)
[2016-09-02] MEDS ORDERED: Insulin Human REGular-Omnicell 100 Unit/mL ONE ×2 (03:36→04:46)
[2016-09-02 04:23] VITALS: BP 154/86; PULSE 110; RESP 20; O2SAT 94
[2016-09-02] MEDS ORDERED: Insulin GLARgine 100 Unit/mL Syringe SUBQ ONE (05:55)
[2016-09-02 06:14] VITALS: BP 136/84; PULSE 96; RESP 20; O2SAT 94
[2016-09-03] MEDS ORDERED: KETO120S TOP (10:19)
== END 2016-09-02 06:16 | disposition home or self-care (01) ==
LOC: SED 22:50
DX: J96.21 Acute and chronic respiratory failure with hypoxia (principal); R60.0 Localized edema; L08.9 Local infection of the skin and subcutaneous tissue, unspecified; B95.8 Unspecified staphylococcus as the cause of diseases classified elsewhere; E11.65 Type 2 diabetes mellitus with hyperglycemia; H10.9 Unspecified conjunctivitis; E78.1 Pure hyperglyceridemia; I25.10 Atherosclerotic heart disease of native coronary artery without angina pectoris; I25.2 Old myocardial infarction; I10 Essential (primary) hypertension; I50.42 Chronic combined systolic (congestive) and diastolic (congestive) heart failure; E66.9 Obesity, unspecified; Z87.891 Personal history of nicotine dependence; Z68.33 Body mass index [BMI] 33.0-33.9, adult; Z86.14 Personal history of Methicillin resistant Staphylococcus aureus infection; Z99.81 Dependence on supplemental oxygen; Z59.0 Homelessness; Z79.4 Long term (current) use of insulin; Z79.82 Long term (current) use of aspirin; Z88.1 Allergy status to other antibiotic agents
CPT/HCPCS: 36415; 80053; 82308; 82948; 83605; 83880; 84484; 85025; 85379; 93005; 94640; 96365; 96372; 96375; 96376; 99285; J0692; J1815; J2930; J7613; J7620

== ENCOUNTER 2016-09-02 14:43 | Inpatient (IN) | payer MEDICARE ==
[2016-09-02 14:47] VITALS: BP 183/119; PULSE 131; RESP 24; O2SAT 92
[2016-09-02 15:17] LABS: BASOPHILS % (AUTO) 0.2 % (0-3); EOSINOPHILS % (AUTO) 0.1 % (0-5); MONOCYTES % (AUTO) 0.8 % (4-12); Mean Corpuscular Hemoglobin 28.7 pg (27.0-35.0); Mean Corpuscular Volume 88.2 fL (81-100); NEUTROPHILS % (AUTO) 95.2 % (40-74); Platelet Count 187 bil/L (150-400)
[2016-09-02 15:41] LABS: TROPONIN T 0.014 ug/L (0.0-0.011)
--- NOTE | 2016-09-02 16:30 | DRSVH ---
PROCEDURE: X-RAY CHEST ONE VIEW, PORTABLE ([id number]) INDICATIONS: COPD TECHNIQUE: One view of the chest was acquired. COMPARISON: [facility], CR, XR CHEST 1VW (PORTABLE), 09/01/2016, 14:52. [facility], CR, XR CHEST 1VW (PORTABLE), 08/16/2016, 17:36. [facility], CR, XR CHEST 1VW (POR TABLE), 08/12/2016, 21:42. FINDINGS: Surgical changes and devices: None. Lungs and pleura: No pleural effusions or pneumothorax. Mild patchy bibasilar airspace opacities are present, consistent with atelectasis versus pneumonia. Mediastinum: Mediastinal contours appear normal. Heart size is normal. Bones and chest wall: No suspicious bony lesions. Overlying soft tissues appear unremarkable. IMPRESSION: Bibasilar atelectasis versus pneumonia. Dictated by: Fidel Moran M.D. on 09/02/2016 at 16:28 Approved by: Fidel Moran M.D. on 09/02/2016 at 16:28
[2016-09-02 17:05] VITALS: BP 116/50; PULSE 51; RESP 16; O2SAT 95
[2016-09-02 17:30] LABS: APPEARANCE,URINE CLEAR (CLEAR,HAZY); COLOR,URINE STRAW (YELLOW); OCCULT BLOOD,URINE TRACE (NEGATIVE); UROBILINOGEN,URINE NORMAL (NORMAL)
--- NOTE | 2016-09-02 18:46 | ED.REPORT ---
HPI-Chest Pain 40 and Over Date of Service Sep 02, 2016 ED Provider: Ranjeet Howell MD 66 year old gentleman with multiple admissions secondary to poorly managed COPD , with uncontrolled DM, HTN, and CAD s/p stemi HTN/Lipids/elevated trop presents to the ED today due to increasing SOB. Pt denies CP. Symptoms are similar to previous exacerbations of COPD. Nursing Notes Stated Complaint: CHEST PAIN Chief Complaint: Respiratory Complaints Nursing Notes Reviewed: Yes Allergies: Coded Allergies: vancomycin (Verified Allergy, Intermediate, Rash,Itching,, 09/02/16) Per Q: Pt should tolerates vancomycin as long as the rate is slow Scheduled Amlodipine (Amlodipine) 5 Mg Tablet 5 MG PO DAILY Aspirin Chew (Aspirin Chew) 81 Mg Chew 81 MG PO DAILY Atorvastatin Calcium (Atorvastatin Calcium) 20 Mg Tablet 20 MG PO HS Azithromycin (Zithromax) 250 Mg Tablet 250 MG PO DAILY Beclomethasone Dipropionate (Qvar) 8.7 Gm Aer.w.adap 1 PUFF INHALATION BID Clopidogrel (Clopidogrel) 75 Mg Tablet 75 MG PO DAILY Glipizide (Glipizide) 5 Mg Tablet 5 MG PO BIDAC Insuln Asp Prt/Insulin Aspart (NovoLOG 70/30 U100 Insulin Flexpen) 100 Unit/Ml Unit 12 UNIT SUBQ BID Lisinopril (Lisinopril) 5 Mg Tablet 5 MG PO DAILY Metformin (Glucophage) 1,000 Mg Tablet 1,000 MG ORAL BID Metoprolol Tartrate (Metoprolol Tartrate) 75 Mg Tablet 75 MG PO BID Prednisone (PredniSONE) 10 Mg Tablet 10 MG PO DAILY take 4 tabs orally for 2 days, 2 tabs for 3 days, 1 tab for 3 days, then 1/2 tab for 4 days Sertraline HCl (Sertraline) 50 Mg Tablet 25 MG PO DAILY Scheduled PRN Albuterol Sulfate (Ventolin HFA Inhaler) 200 Puff/18 Gm Inhaler 1-2 PUFFS INH DIRECTED PRN PRN For Wheezing Benzonatate (Benzonatate) 100 Mg Capsule 100 MG PO TID PRN PRN For Cough General Time Seen by MD: 18:31 Chief Complaint Shortness of breath Hx Obtained From: Patient Arrived By: Wheelchair Sudden in Onset?: No Symptom Duration: Since onset Severity: Current: No pain currently Pertinent Negative: Pt denies other symptoms Similar Sx Previous: Yes Past Medical History Past Medical History Notes: PCP: Dr. 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" Multiple visits of COPD with exacerbation (patient on chronic O2 2-3 L) History of paroxysmal atrial tachycardia Chronic CHF with systolic and diastolic dysfunction, echo August 2013 with an decreased left ventricular ejection fraction History of nonadherence to medical treatment Chronic venous insufficiency Hx cellulitis Reports: COPD, Congestive heart failure, Diabetes mellitus, Hyperlipidemia, Hypertension Reports: Obesity Past Surgical History None Family History Reports: Diabetes mellitus Smoking History Former Smoker Social History Patient is currently living in his car Alcohol Use: Denies alcohol use Drug Use: Denies drug use Other Social History: Poor social support, Frequent ED visitor, Homeless 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 Physical Exam Initial Vital Signs Vital Signs (First) Date Time Temp Pulse Resp B/P Pulse Ox O2 Delivery O2 Flow Rate FiO2 09/02/16 14:47 35.4 131 24 183/119 92 Room Air Initial VS: Reviewed Head / Eyes: Atraumatic, Normocephalic, PERRL ENT: Mucous membranes moist, Conjunctiva normal, No scleral icterus Neck: Full range of motion Skin: Warm, Dry Neurologic: Alert, Oriented Psychiatric: Mood/affect normal, Behavior normal General/Constitutional: Awake, Alert Respiratory / Chest: Breath sounds NL, Breath sounds = bilat, No respiratory distress, No rales, No rhonchi, No wheezing, No stridor Cardiovascular: Heart rate NL, Regular rhythm, Heart sounds NL, No murmurs, Peripheral circulation NL Interpretation & Diagnostics Lab Results Interpretation Result Diagram: 09/02/16 1507 09/02/16 1507 Test 09/02/16 15:07 09/02/16 17:03 White Blood Count 8.6th/mm3 (3.8-10.1) Red Blood Count 4.56mil/mm3 (4.40-5.80) Hemoglobin 13.1g/dL (13.8-17.2) Hematocrit 40.2% (41.0-50.0) Mean Corpuscular Volume 88.2fL (81-100) Mean Corpuscular Hemoglobin 28.7pg (27.0-35.0) Mean Corpuscular Hemoglobin Concent 32.6% (32.0-37.0) Red Cell Distribution Width 15.7% (12.3-15.4) Platelet Count 187bil/L (150-400) Neutrophils (%) (Auto) 95.2% (40-74) Lymphocytes (%) (Auto) 2.6% (14-46) Monocytes (%) (Auto) 0.8% (4-12) Eosinophils (%) (Auto) 0.1% (0-5) Basophils (%) (Auto) 0.2% (0-3) Sodium Level 137mEq/L (134-144) Potassium Level 4.6mEq/L (3.5-5.2) Chloride Level 98mEq/L (97-108) Carbon Dioxide Level 22mmol/L (18-29) Blood Urea Nitrogen 20mg/dL (8-27) Creatinine 1.04mg/dL (0.76-1.27) Estimat Glomerular Filtration Rate 76mL/min (>59) Glucose Level 612mg/dL (60-99) Osmolality 322 (275-300) Calcium Level 8.3mg/dL (8.5-10.1) Total Bilirubin 0.4mg/dL (0.0-1.2) Aspartate Amino Transf (AST/SGOT) 13U/L (0-50) Alanine Aminotransferase (ALT/SGPT) 20U/L (0-44) Alkaline Phosphatase 61U/L (25-160) Troponin T 0.014ug/L (0.0-0.011) Pro-B-Type Natriuretic Peptide 1253pg/mL (0-376) Total Protein 6.5g/dL (6.4-8.4) Albumin 3.8g/dL (3.4-5.0) Hold Ramires Top Tube Received (Received) Ketones Negative (Negative) Urine Color Straw (YELLOW) Urine Appearance Clear (CLEAR,HAZY) Urine pH 5.0 (5.0-8.0) Urine Specific Sandwich 1.010 (1.003-1.035) Urine Protein Negativemg/dL (NEG,TRACE) Urine Glucose (UA) 100mg/dL (NEGATIVE) Urine Ketones Negativemg/dL (NEGATIVE) Urine Occult Blood Trace (NEGATIVE) Urine Nitrite Negative (NEGATIVE) Urine Bilirubin Negative (NEGATIVE) Urine Urobilinogen Normalmg/dL (NORMAL) Urine Leukocyte Esterase Negative (NEGATIVE) Urine RBC 0-2/hpf (0-2) Urine WBC 0-5/hpf (0-5) Urine Epithelial Cells None/hpf (NONE-MOD) Urine Crystals None seen (NONE SEEN) Urine Bacteria Few/hpf (NONE-FEW) Urine Hyaline Casts None/lpf (NONE) Urine Granular Casts None seen (NONE SEEN) Urine Waxy Casts None seen (NONE SEEN) Urine Red Blood Cell Casts None seen (NONE SEEN) Urine White Blood Cell Casts None seen (NONE SEEN) Urine Mucus None seen (None Seen) Urine Trichomonas None seen (NONE SEEN) Urine Yeast None (NONE SEEN) Urinalysis Comment None Urine Culture Reflexed Not indicated Lab Results Interpretation: BGL 612 General Lab Results Interp 1: Labs reviewed ECG Interpretation Time: 17:01 Interpreted by: ED physician Normal ECG Interpretation: No change from prior ECGs (Yesterday) Rhythm / Conduction: Tachycardia (rate of 123) X-Ray Chest Interpretation Chest Xray Interpretation: IMPRESSION: Bibasilar atelectasis versus pneumonia. Dictated by: Fidel Moran M.D. on 09/02/2016 at 16:28 View: Portable, 1 view Interpretation / Wet Read by: Interpret - Radiologist Re-Eval/Medical Decision Med Decision/Clinical Course 1-6-ipxx-old male history of homelessness, CAD, STEMI, uncontrolled diabetes, COPD presenting complaining of shortness of breath. He reports he has not been taking his insulin. Initially tachycardiac resolved without intervention. Vital signs otherwise stable. Troponins 0.014, chronically elevated. Glucose greater than 600. All symptoms greater than 300. Urine ketones negative. Patient with HHS and will be started on IV fluids and insulin drip with admission to [facility]. Discussed with hospitalist and we will trend troponins given chronic elevation down from baseline, no chest pain, no EKG changes. Also with possible bibasilar pneumonia we will give Rocephin and azithromycin. Time of Eval: 19:01 Re-Evaluation/Progress Note: Updated pt of labs, ECG and imaging results. Recommended admission. Pt understands and agrees with plan. All questions addressed. CODE STATUS: DNR Consultation : Referral / Consult Name: Tita Schmid MD Consulted With: Hospitalist Call Returned at: 18:50 [place] Boat Pilot: Will see patient, Agrees with eval, Agrees with plan, Accepts admit Counseled Regarding: Diagnosis, Lab results, Need for admission Discharge & Departure Primary Impression: Uncontrolled type 2 DM with hyperosmolar nonketotic hyperglycemia Additional Impressions: Elevated troponin Pneumonia Pneumonia type: due to unspecified organism Laterality: bilateral Lung location: lower lobe of lung Qualified Code: J18.9 - Pneumonia, unspecified organism Disposition: ADMITTED TO HOSPITAL Discharge Condition All VS Reviewed: Yes Referrals: Yumiko James MD (PCP) Crit Care Except Billable Proc Time Spent: 30-74 minutes Services Performed: Patient management by me, Time spent at bedside, Reviewing test results, Reviewing imaging, Discussing patient care, Documentation in record, Time with fam/surrogate Scribe Attestation Portions of this note were transcribed by Deirdre Purcell. I, (Dr. Howell) personally performed the history, physical exam and medical decision-making; I reviewed and confirmed the accuracy of the information in the transcribed note. Signed by: Deirdre Purcell. 09/02/2016, 1902 copies to: Yumiko James MD, Ben M MD Sep 02, 2016 18:46 Deirdre Purcell Sep 02, 2016 18:58
[2016-09-02] MEDS ORDERED: cefTRIAXone Inj 1,000 MG in IV Premix 1 EACH IV ONE (18:50)
[2016-09-02] MEDS ORDERED: Insulin Human REGular Inj 100 UNIT in 0.9% Sodium Chloride-Pha MIX 100 ML IV SCH (18:50)
[2016-09-02] MEDS ORDERED: 0.9% Sodium Chloride 1,000 ML IV ONE (18:50)
[2016-09-02] MEDS ORDERED: cefTRIAXone Inj 2,000 MG in IV Premix 1 EACH IV SCH (18:55)
[2016-09-02] MEDS ORDERED: Ondansetron 2 mg/mL 2 mL Inj IVPUSH PRN (19:05)
[2016-09-02 20:36] VITALS: BP 151/96; PULSE 123; RESP 22; O2SAT 91
--- NOTE | 2016-09-02 20:50 | NUR ---
Admission Pt admitted from the ED. Cloth Feeder received report from SAIMA Cazares. A&Ox3, CARIDAD. Pt up on unit in w/c and refuses to transfer into the bed, change his urine soaked clothes or place telemetry on. IV insitu infusing NS. Pt SOB, stating his "normal." Cloth Feeder contacted [facility] and they state they will arrive as soon as they can. Cloth Feeder gave pt a glass of water he requested. Pt refusing to let patient see his feet or change his urine soaked socks.
[2016-09-02] MEDS: Albuterol-Ipratropium 3 mL Inhalation Solution NEB SCH (21:23)
[2016-09-02 21:24] VITALS: PULSE 123; RESP 20; O2SAT 91
[2016-09-02 23:00] VITALS: BP 118/69; PULSE 109; RESP 20; O2SAT 90
[2016-09-02] MEDS ORDERED: Insulin Human REGular 100 Units/100 mL NS IV SCH ×2 (23:15)
--- NOTE | 2016-09-02 23:31 | PCM.HPMED ---
Subjective Date of Service Sep 02, 2016 Primary Provider: Admitting Physician: Tita cShmid MD Primary Care Physician: Yumiko James MD Attending Physician: Tita Schmid MD Chief Complaint: Short of breath HISTORY was OBTAINED FROM PATIENT / [facility] NOTES History of present illness 66-year-old male COPD, diabetic, homeless well-known to [facility] for complications of uncontrolled diabetes and lack of insight. Patient has been seen in the emergency department frequently this month, brought in by family who indicate that they cannot take care of him despite attempting to help him not limited in his car. In the ER elevated osmolality, glucose greater than 600, patient indicates he does not administer insulin to himself. He denies coughing phlegm swelling of the legs illness anywhere. Patient asked the family to bring him to the ER. He indicates that he will in the hospital bed and declines to leave his wheelchair. Urinary odor. Insulin drip unable to be started patient's refusing frequent blood glucose checks and wanting food. Patient agrees to every 3 hour blood glucose checks and subcutaneous insulin despite standard of care indicating insulin drip. Review of Systems - denies the following - F/C/sick contact / wt change/ MARTEL / lightheaded / dizziness / sob / cough / cp / acid reflux / n/v/diarrhea / bleeding/bruising / leg swelling / change in voiding / yeast infections / rash Medications Scheduled Amlodipine (Amlodipine) 5 Mg Tablet 5 MG PO DAILY Aspirin Chew (Aspirin Chew) 81 Mg Chew 81 MG PO DAILY Atorvastatin Calcium (Atorvastatin Calcium) 20 Mg Tablet 20 MG PO HS Azithromycin (Zithromax) 250 Mg Tablet 250 MG PO DAILY Beclomethasone Dipropionate (Qvar) 8.7 Gm Aer.w.adap 1 PUFF INHALATION BID Clopidogrel (Clopidogrel) 75 Mg Tablet 75 MG PO DAILY Glipizide (Glipizide) 5 Mg Tablet 5 MG PO BIDAC Insuln Asp Prt/Insulin Aspart (NovoLOG 70/30 U100 Insulin Flexpen) 100 Unit/Ml Unit 12 UNIT SUBQ BID Lisinopril (Lisinopril) 5 Mg Tablet 5 MG PO DAILY Metformin (Glucophage) 1,000 Mg Tablet 1,000 MG ORAL BID Metoprolol Tartrate (Metoprolol Tartrate) 75 Mg Tablet 75 MG PO BID Prednisone (PredniSONE) 10 Mg Tablet 10 MG PO DAILY take 4 tabs orally for 2 days, 2 tabs for 3 days, 1 tab for 3 days, then 1/2 tab for 4 days Sertraline HCl (Sertraline) 50 Mg Tablet 25 MG PO DAILY Scheduled PRN Albuterol Sulfate (Ventolin HFA Inhaler) 200 Puff/18 Gm Inhaler 1-2 PUFFS INH DIRECTED PRN PRN For Wheezing Benzonatate (Benzonatate) 100 Mg Capsule 100 MG PO TID PRN PRN For Cough Past Medical History Frequent hospital admissions for COPD exacerbations (7 admits in the past 30 days, most recently admitted August 16 to 08/19/2016)(patient on chronic O2 2 -3 L) 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 CAD, Non ST elevation [place], August 2013 Left lower extremity cellulitis Hypertriglyceridemia 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" History of paroxysmal atrial tachycardia Chronic CHF with systolic and diastolic dysfunction, echo August 2013 with an decreased left ventricular ejection fraction History of nonadherence to medical treatment Chronic venous insufficiency cellulitis Hypertension Obesity Family History Diabetes mellitus Smoking History Former Smoker Allergies Coded Allergies: vancomycin (Verified Allergy, Intermediate, Rash,Itching,, 09/02/16) Per Q: Pt should tolerates vancomycin as long as the rate is slow PMH Social History Hx Alcohol Use: No Hx Substance Use: No Hx Tobacco Use: Yes (quit 9 years ago) Smoking Status: Former Smoker Exam Vital Signs Vital Sign - Last Date Time Temp Pulse Resp B/P Pulse Ox O2 Delivery O2 Flow Rate FiO2 09/02/16 23:00 36.8 109 20 118/69 90 Room Air Lab and Diagnostics Labs Exam on admission 3LNC NAD A and O x 3 mood affect WNL NC/AT no icterus no injected eyes EOMI PERRL /no pharyngeal lesions/ no oral lesions / hearing intact Supple neck Diminished CTAB equal chest rise / no accessory muscle use / speaks in full sentences / no rrw RRR S1 S2 / no mrg / 2+ radial pulses Soft nt nd + BS no hepatosplenomegaly No edema no cyanosis no ecchymosis of lower extremities No rash / no jaundice MCLEAN PROCEDURE: X-RAY CHEST ONE VIEW, PORTABLE ([id number]) INDICATIONS: COPD TECHNIQUE: One view of the chest was acquired. COMPARISON: [facility], CR, XR CHEST 1VW (PORTABLE), 09/01/2016, 14: 52. [facility], CR, XR CHEST 1VW (PORTABLE), 08/16/2016, 17:36. [facility], CR, XR CHEST 1VW (PORTABLE), 08/12/2016, 21:42. FINDINGS: Surgical changes and devices: None. Lungs and pleura: No pleural effusions or pneumothorax. Mild patchy bibasilar airspace opacities are present, consistent with atelectasis versus pneumonia. Mediastinum: Mediastinal contours appear normal. Heart size is normal. Bones and chest wall: No suspicious bony lesions. Overlying soft tissues appear unremarkable. UA negative osmolarity 320 glucose 600 baseline elevated troponin Result Diagram: 09/02/16 1507 09/02/16 1507 Assessment & Plan Active issues and reason for admission 66-year-old male with uncontrolled diabetes, COPD exacerbation, homeless. Hyperomolar hyperglycemia -- Patient agrees to every 3 hours blood check,refusing every 1 hour, hold insulin drip, sliding scale insulin every 3 hours -- continue normal saline 150 an hour -- Advance diet COPD exacerbation/pneumonia -- Rocephin and azithromycin DuoNeb's Baseline elevated troponin Chronic issues known prior to admission, present on admission COPD CAD, Non ST elevation [place], August 2013 Left lower extremity cellulitis Hypertriglyceridemia paroxysmal atrial tachycardia Chronic CHF with systolic and diastolic dysfunction, echo August 2013 History of nonadherence to medical treatment Chronic venous insufficiency Hypertension Obesity --resume home meds, anticipate non compliance Diet DM DVT prophylaxis lovenox Code full Disposition inpt Assessment and plan were discussed with patient. Tita Schmid MD Sep 02, 2016 23:31 Tita Schmid MD Sep 02, 2016 23:31
[2016-09-02] MEDS ORDERED: Albuterol-Ipratropium 3 mL Inhalation Solution NEB PRN (23:35)
[2016-09-02] MEDS ORDERED: Insulin Human REGular 300 Unit/3 mL Inj IV SCH (23:45)
[2016-09-02] MEDS ORDERED: 0.9% Sodium Chloride 1,000 ML IV SCH (23:45)
[2016-09-03 00:58] VITALS: PULSE 121; RESP 20; O2SAT 93
--- NOTE | 2016-09-03 01:05 | NUR ---
Diet/conduct Pt requesting several snacks. Pt reminded that provider has stated an NPO diet. Pt aggravated, vulgar, and angry. Provider spoke with pt and allowed for solid foods and pt has agreed to allow staff to administer ordered SQ insulin. Pt had previously refused IV insulin, NPO status because of the infusion, and having blood sugar be checked every hour as per protocol. Pt is angry and inappropriate with staff regardless.
[2016-09-03] MEDS ORDERED: Insulin Human REGular 300 Unit/3 mL Inj IV PRN (01:35)
[2016-09-03] MEDS: 0.9% Sodium Chloride 1,000 ML IV SCH ×2 (01:41→07:52)
[2016-09-03] MEDS ORDERED: Insulin Human REGular 300 Unit/3 mL Inj SUBQ SCH (02:30)
[2016-09-03] MEDS: Insulin Human REGular 300 Unit/3 mL Inj SUBQ SCH ×3 (02:55→07:48)
[2016-09-03 03:04] VITALS: BP 149/81; PULSE 85; RESP 20; O2SAT 91
[2016-09-03 05:39] VITALS: PULSE 81
[2016-09-03] MEDS ORDERED: Albuterol-Ipratropium 3 mL Inhalation Solution NEB SCH (06:00)
[2016-09-03 07:18] VITALS: BP 136/88; PULSE 87; RESP 25; O2SAT 95
[2016-09-03 07:25] VITALS: PULSE 96; RESP 22; O2SAT 93
[2016-09-03] MEDS: Albuterol-Ipratropium 3 mL Inhalation Solution NEB SCH (07:25)
[2016-09-03 08:00] VITALS: PULSE 96
--- NOTE | 2016-09-03 10:18 | PCM.DIMED ---
Discharge Instructions Date of Service Sep 03, 2016 Dates of Hospitalization Sep 02, 2016 at 19:30 Discharge Diagnosis Discharge Diagnosis 1. Possible pneumonia, improved 2. Scrotal tinea Chronic issues: COPD CAD, Non ST elevation [place], August 2013 Left lower extremity cellulitis Hypertriglyceridemia paroxysmal atrial tachycardia Chronic CHF with systolic and diastolic dysfunction, echo August 2013 History of nonadherence to medical treatment Chronic venous insufficiency Hypertension Obesity Diet Diabetic Activity Limited until seen by PCP Call your provider Fever or Chills, Shortness of breath Patient Instructions See your PCP in the next week. Follow-up with PCP in: 1 week Collin High MD Sep 03, 2016 10:18
[2016-09-03] MEDS ORDERED: KETO120S TOP (10:19)
--- NOTE | 2016-09-03 10:44 | NUR ---
Social Work Note - Initial Assessment - Discharge Vincent High is a 66 yr old admitted for chest pain, SOB, DM. EMR reviewed: Pt has Medicare and his PCP is Yumiko James at [facility]. Readmit score not available. See attached CM initial assessment. CANCER RESEARCHER met with pt - known from previous admissions. CANCER RESEARCHER introduced D/C planning and explained SW role. Pt lives in his car with his nephew Danyel and Niece Mariposa. He and his family are homeless - he has been living in his car for the past several years. He has a transport wheelchair and O2. Pt has has multiple ED visits in the past year. His diabetes, COPD and cardiac issues make him feel miserable. He has income - states that he got paid in Aug 30 but admits he chooses not to pay for housing because he does not like the idea of paying rent, does not want to pay high rent. Pt is working with Brianne CORTEZ at [facility] - [phone] He states that he met with her on Wednesday. She is watching for housing for him. He has nothing in the works at this time. CANCER RESEARCHER offered services for [facility] - community based help - Pt states that he is willing to have their help. He said that they can find him most days that he is not in the hospital at either the bar in [place] called [employer], or at the [employer] in [facility] or at the [employer] park and ride in [facility] in his [address] [place] [address]. Pt is aware of community resources. He continues to make choices that negatively impact his health. CANCER RESEARCHER explored his mental health - He states that he is depressed - Wants to be done with this "shit". Did not verbalize any suicidal ideations - but states he is thinking about getting "good and drunk". Voiced anger with his mother for "giving me diabetes". Pt plans to d/c to his car today with assistance from his family. CANCER RESEARCHER will coordinate care with Consistent [facility] services. DULCE MARIA Acosta Addendum: 09/03/16 at 1053 by AMBER VAZQUEZ Amended: Links added.
--- NOTE | 2016-09-03 10:52 | NUR ---
Discharge Pt BG WNL this morning. Tolerating diet. SpO2 93% on RA. Steady gait with independent ambulation. VSS. Afebrile. Pt d/c education complete, pt denies questions. IV d/c'd in tact. D/C'd via w/c with family at 1048. All belongings sent with pt upon d/c.
--- NOTE | 2016-09-03 12:56 | PCM.DC.MED ---
Discharge Summary Date of Service Sep 03, 2016 Dates of Hospitalization Date of Hospital Admission Sep 02, 2016 at 19:30 Date of Discharge: Sep 03, 2016 Providers: Admitting Physician: Tita Schmid MD Primary Care Physician: Yumiko James MD Attending Physician: Tita Schmid MD Diagnosis at Time of Discharge Diagnosis at Time of Discharge 1. Possible pneumonia, improved 2. Scrotal tinea 3. Hyperglycemia. Resolved. Chronic issues: COPD CAD, Non ST elevation [place], August 2013 Left lower extremity cellulitis Hypertriglyceridemia paroxysmal atrial tachycardia Chronic CHF with systolic and diastolic dysfunction, echo August 2013 History of nonadherence to medical treatment Chronic venous insufficiency Hypertension Obesity Consultations None Procedures XRay, CTs & MRIs Chest x-ray indicates bibasilar atelectasis. ECG 12 Lead Sinus tachycardia, septal Q waves. No acute ST segment changes. Invasive Procedures None Brief History This is a patient lives in his car has chronic respiratory failure, hypoxic with home oxygen in his car. He has a history of frequent admissions. He presented last night with increased weakness and relative hypoglycemia as well as find depletion. The patient was treated with insulin subcutaneous as well as fluid resuscitated. A chest x-ray indicated atelectasis. He had no evidence of acute respiratory illness. The patient still is finishing azithromycin from a very recent discharge. Vision compliance is very difficult. The patient also has generally belligerent behavior with staff. Hospital Course Active issues and reason for admission 66-year-old male with uncontrolled diabetes, COPD exacerbation, homeless. Hyperomolar hyperglycemia -- Patient agrees to every 3 hours blood check,refusing every 1 hour, hold insulin drip, sliding scale insulin every 3 hours -- continue normal saline 150 an hour -- Advance diet COPD exacerbation/pneumonia -- Rocephin and azithromycin DuoNeb's Baseline elevated troponin Chronic issues known prior to admission, present on admission COPD CAD, Non ST elevation [place], August 2013 Left lower extremity cellulitis Hypertriglyceridemia paroxysmal atrial tachycardia Chronic CHF with systolic and diastolic dysfunction, echo August 2013 History of nonadherence to medical treatment Chronic venous insufficiency Hypertension Obesity --resume home meds, anticipate non compliance Diet DM DVT prophylaxis lovenox Code full Disposition inpt Assessment and plan were discussed with patient. The patient was treated empirically with antibiotics and bronchodilators. He was given insulin which improved his hyperglycemia. This is discontinued. In the morning of discharge he was in his baseline self. The patient then noted that off and dad did have a primary complaint of erythema of his scrotum which is been ongoing. He notes that this is been refractory to multiple creams which have been antibiotic creams. He denied any other problems such as chest pain. In the morning of discharge patient was agreeable to discharge. He is also agreeable to short-term follow-up with his primary physician. Exam Vital Signs (Last) Date Time Temp Pulse Resp B/P Pulse Ox O2 Delivery O2 Flow Rate FiO2 09/03/16 08:00 96 09/03/16 07:25 22 93 Room Air 09/03/16 07:18 36.2 136/88 Exam Neuro oriented no acute distress. Lungs are clear normal effort preference. No murmur gallop or rub. Abdomen soft nondistended Extremities free of edema. Scrotum normal for a confluent erythema over both sides of the ankle joint and the scrotum. Test 09/02/16 15:07 09/02/16 17:03 09/03/16 01:06 White Blood Count 8.6th/mm3 (3.8-10.1) Red Blood Count 4.56mil/mm3 (4.40-5.80) Hemoglobin 13.1g/dL (13.8-17.2) Hematocrit 40.2% (41.0-50.0) Mean Corpuscular Volume 88.2fL (81-100) Mean Corpuscular Hemoglobin 28.7pg (27.0-35.0) Mean Corpuscular Hemoglobin Concent 32.6% (32.0-37.0) Red Cell Distribution Width 15.7% (12.3-15.4) Platelet Count 187bil/L (150-400) Neutrophils (%) (Auto) 95.2% (40-74) Lymphocytes (%) (Auto) 2.6% (14-46) Monocytes (%) (Auto) 0.8% (4-12) Eosinophils (%) (Auto) 0.1% (0-5) Basophils (%) (Auto) 0.2% (0-3) Osmolality 322 (275-300) Total Bilirubin 0.4mg/dL (0.0-1.2) Aspartate Amino Transf (AST/SGOT) 13U/L (0-50) Alanine Aminotransferase (ALT/SGPT) 20U/L (0-44) Alkaline Phosphatase 61U/L (25-160) Troponin T 0.014ug/L (0.0-0.011) Pro-B-Type Natriuretic Peptide 1253pg/mL (0-376) Total Protein 6.5g/dL (6.4-8.4) Albumin 3.8g/dL (3.4-5.0) Hold [place] Top Tube Received (Received) Ketones Negative (Negative) Urine Color Straw (YELLOW) Urine Appearance Clear (CLEAR,HAZY) Urine pH 5.0 (5.0-8.0) Urine Specific [place] 1.010 (1.003-1.035) Urine Protein Negativemg/dL (NEG,TRACE) Urine Glucose (UA) 100mg/dL (NEGATIVE) Urine Ketones Negativemg/dL (NEGATIVE) Urine Occult Blood Trace (NEGATIVE) Urine Nitrite Negative (NEGATIVE) Urine Bilirubin Negative (NEGATIVE) Urine Urobilinogen Normalmg/dL (NORMAL) Urine Leukocyte Esterase Negative (NEGATIVE) Urine RBC 0-2/hpf (0-2) Urine WBC 0-5/hpf (0-5) Urine Epithelial Cells None/hpf (NONE-MOD) Urine Crystals None seen (NONE SEEN) Urine Bacteria Few/hpf (NONE-FEW) Urine Hyaline Casts None/lpf (NONE) Urine Granular Casts None seen (NONE SEEN) Urine Waxy Casts None seen (NONE SEEN) Urine Red Blood Cell Casts None seen (NONE SEEN) Urine White Blood Cell Casts None seen (NONE SEEN) Urine Mucus None seen (None Seen) Urine Trichomonas None seen (NONE SEEN) Urine Yeast None (NONE SEEN) Urinalysis Comment None Urine Culture Reflexed Not indicated Sodium Level 134mEq/L (134-144) Potassium Level 4.4mEq/L (3.5-5.2) Chloride Level 99mEq/L (97-108) Carbon Dioxide Level 21mmol/L (18-29) Blood Urea Nitrogen 24mg/dL (8-27) Creatinine 0.77mg/dL (0.76-1.27) Estimat Glomerular Filtration Rate 107mL/min (>59) Glucose Level 486mg/dL (60-99) Calcium Level 8.2mg/dL (8.5-10.1) Microbiology Results MRSA nares screen pending and blood cultures 2 pending Discharge Medications Discharge Medications Amlodipine (Amlodipine) 5 Mg Tablet 5 MG PO DAILY Prescribed by: EMILIE IQBAL DO Aspirin Chew (Aspirin Chew) 81 Mg Chew 81 MG PO DAILY Prescribed by: CLEMENT PATTON MD Atorvastatin Calcium (Atorvastatin Calcium) 20 Mg Tablet 20 MG PO HS Prescribed by: CLEMENT PATTON MD Azithromycin (Zithromax) 250 Mg Tablet 250 MG PO DAILY Prescribed by: EMILIE IQBAL DO Beclomethasone Dipropionate (Qvar) 8.7 Gm Aer.w.adap 1 PUFF INHALATION BID Prescribed by: EMILIE IQBAL DO Clopidogrel (Clopidogrel) 75 Mg Tablet 75 MG PO DAILY Prescribed by: BRIGIDO JAIMES DO Glipizide (Glipizide) 5 Mg Tablet 5 MG PO BIDAC Prescribed by: BRIGIDO JAIMES DO Insuln Asp Prt/Insulin Aspart (NovoLOG 70/30 U100 Insulin Flexpen) 100 Unit/Ml Unit 12 UNIT SUBQ BID Prescribed by: BRIGIDO JAIMES DO Ketoconazole (Nizoral) 120 Ml Shampoo 120 ML TOP BID Prescribed by: COLLIN LUNA MD Lisinopril (Lisinopril) 5 Mg Tablet 5 MG PO DAILY Prescribed by: BRIGIDO JAIMES DO Metformin (Glucophage) 1,000 Mg Tablet 1,000 MG ORAL BID (Reported) Metoprolol Tartrate (Metoprolol Tartrate) 75 Mg Tablet 75 MG PO BID (Reported) Prednisone (PredniSONE) 10 Mg Tablet 10 MG PO DAILY take 4 tabs orally for 2 days, 2 tabs for 3 days, 1 tab for 3 days, then 1/2 tab for 4 days Prescribed by: EMILIE IQBAL DO Sertraline HCl (Sertraline) 50 Mg Tablet 25 MG PO DAILY Prescribed by: EMILIE IQBAL DO As needed Albuterol Sulfate (Ventolin HFA Inhaler) 200 Puff/18 Gm Inhaler 1-2 PUFFS INH DIRECTED PRN PRN For Wheezing Prescribed by: GABRIELLE MAURO DO Benzonatate (Benzonatate) 100 Mg Capsule 100 MG PO TID PRN PRN For Cough Prescribed by: CLEMENT PATTON MD Followup Plan Disposition: Home Discharge Diet: Diabetic Discharge Activity: Limited until seen by PCP Patient Instructions See your PCP in the next week. Follow-up with PCP in: 1 week Time spent 35 minutes Collin Luna MD Sep 03, 2016 12:56
== END 2016-09-03 12:50 | disposition home or self-care (01) | DRG 637 ==
LOC: SED 14:43 → PCC 19:30
PROVIDERS: ADMIT Urology; ATTEND Urology
DX: E11.00 Type 2 diabetes mellitus with hyperosmolarity without nonketotic hyperglycemic-hyperosmolar coma (NKHHC) (principal); J18.9 Pneumonia, unspecified organism; I50.42 Chronic combined systolic (congestive) and diastolic (congestive) heart failure; J96.11 Chronic respiratory failure with hypoxia; J44.9 Chronic obstructive pulmonary disease, unspecified; I25.10 Atherosclerotic heart disease of native coronary artery without angina pectoris; I10 Essential (primary) hypertension; Z87.891 Personal history of nicotine dependence; Z59.0 Homelessness; Z91.14 Patient's other noncompliance with medication regimen; B35.6 Tinea cruris

== ENCOUNTER 2016-09-03 18:36 | Inpatient (IN) | payer MEDICARE ==
[~2016-09-03] VITALS: Ht 170.2 cm; Wt 106.8 kg
[~2016-09-03 18:36] MED LIST changes: +KETO120S TOP
[2016-09-03 18:40] VITALS: BP 152/102; PULSE 128; RESP 34; O2SAT 91
[2016-09-03 20:23] LABS: BASOPHILS % (AUTO) 0.1 % (0-3); EOSINOPHILS % (AUTO) 0 % (0-5); MONOCYTES % (AUTO) 3.2 % (4-12); Mean Corpuscular Hemoglobin 28.6 pg (27.0-35.0); Mean Corpuscular Volume 87.6 fL (81-100); NEUTROPHILS % (AUTO) 92.9 % (40-74); Platelet Count 186 bil/L (150-400)
--- NOTE | 2016-09-03 20:33 | ED.REPORT ---
HPI-Chest Pain 40 and Over Date of Service Sep 03, 2016 ED Provider: Aldo Chicas MD Pt is a 66 y/o male w/ a hx of medication noncompliance, NSTEMI, COPD, CHF, CAD , DM, hyperlipidemia, HTN, presenting to the ED c/o CP onset today. He was recently discharged earlier today with a diagnosis of pneumonia. Of note, his troponin at time of discharge was 0.014. Today he c/o chest pain (mostly pleuritic), urinary frequency, urinary incontinence, and worsening of his chronic SOB. He denies fever, chills, N/V/D. He denies any history of STEMI. Nursing Notes Stated Complaint: CHEST PAIN Chief Complaint: Chest Pain Nursing Notes Reviewed: Yes Allergies: Coded Allergies: vancomycin (Verified Allergy, Intermediate, Rash,Itching,, 09/03/16) Per Q: Pt should tolerates vancomycin as long as the rate is slow Scheduled Amlodipine (Amlodipine) 5 Mg Tablet 5 MG PO DAILY Aspirin Chew (Aspirin Chew) 81 Mg Chew 81 MG PO DAILY Atorvastatin Calcium (Atorvastatin Calcium) 20 Mg Tablet 20 MG PO HS Azithromycin (Zithromax) 250 Mg Tablet 250 MG PO DAILY Beclomethasone Dipropionate (Qvar) 8.7 Gm Aer.w.adap 1 PUFF INHALATION BID Clopidogrel (Clopidogrel) 75 Mg Tablet 75 MG PO DAILY Glipizide (Glipizide) 5 Mg Tablet 5 MG PO BIDAC Insuln Asp Prt/Insulin Aspart (NovoLOG 70/30 U100 Insulin Flexpen) 100 Unit/Ml Unit 12 UNIT SUBQ BID Ketoconazole (Nizoral) 120 Ml Shampoo 120 ML TOP BID Lisinopril (Lisinopril) 5 Mg Tablet 5 MG PO DAILY Metformin (Glucophage) 1,000 Mg Tablet 1,000 MG ORAL BID Metoprolol Tartrate (Metoprolol Tartrate) 75 Mg Tablet 75 MG PO BID Prednisone (PredniSONE) 10 Mg Tablet 10 MG PO DAILY take 4 tabs orally for 2 days, 2 tabs for 3 days, 1 tab for 3 days, then 1/2 tab for 4 days Sertraline HCl (Sertraline) 50 Mg Tablet 25 MG PO DAILY Scheduled PRN Albuterol Sulfate (Ventolin HFA Inhaler) 200 Puff/18 Gm Inhaler 1-2 PUFFS INH DIRECTED PRN PRN For Wheezing Benzonatate (Benzonatate) 100 Mg Capsule 100 MG PO TID PRN PRN For Cough General Time Seen by MD: 20:31 Chief Complaint Chest pain Hx Obtained From: Patient Arrived By: Walk-in Sudden in Onset?: No Onset Occurred: 9 - 12 hours ago Symptom Duration: Since onset Location: : Substernal Quality: Painful, Pleuritic Severity: Current: Mild Severity: Maximum: Mild Recent Healthcare: Recent doctor visit, Recent hospitalization, Recent testing , Previous diagnosis, Prior workup Past Medical History Past Medical History Notes: PCP: Dr. James Frequent hospital admissions for COPD exacerbations (7 admits in the past 30 days, most recently admitted August 16 to 08/19/2016) Patient just left ED 1 hr ago Past Medical History CAD, Non ST elevation [place], August 2013 Left lower extremity cellulitis Hypertriglyceridemia 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" Multiple visits of COPD with exacerbation (patient on chronic O2 2-3 L) History of paroxysmal atrial tachycardia Chronic CHF with systolic and diastolic dysfunction, echo August 2013 with an decreased left ventricular ejection fraction History of nonadherence to medical treatment Chronic venous insufficiency Hx cellulitis Reports: COPD, Congestive heart failure, Diabetes mellitus, Hyperlipidemia, Hypertension Reports: Obesity Past Surgical History None Family History Reports: Diabetes mellitus Smoking History Former Smoker Social History Patient is currently living in his car Alcohol Use: Denies alcohol use Drug Use: Denies drug use Other Social History: Poor social support, Frequent ED visitor, Homeless 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 Male: Reports Urinary frequency Physical Exam Initial Vital Signs Vital Signs (First) Date Time Temp Pulse Resp B/P Pulse Ox O2 Delivery O2 Flow Rate FiO2 09/03/16 18:40 37.1 128 34 152/102 91 Room Air 09/03/16 22:01 3 Initial VS: Reviewed, Vital signs abnormal Head / Eyes: Atraumatic, Normocephalic, PERRL ENT: Mucous membranes moist, Conjunctiva normal, No scleral icterus Skin: Warm, Dry, No cyanosis Neurologic: Alert, Oriented, Nonfocal Psychiatric: Mood/affect normal, Behavior normal, Normal thought content General/Constitutional: Awake, Alert Smells strongly of urine Respiratory / Chest: Atraumatic, Breath sounds = bilat Distant breath sounds Moderate respiratory distress Using accessory muscles Tachypneic Cardiovascular: Heart rate NL, Regular rhythm, Heart sounds NL, No gallop, No murmurs, No rubs, Cap refill not delayed, Peripheral circulation NL Abdomen: Atraumatic, Soft Interpretation & Diagnostics Lab Results Interpretation Result Diagram: 09/03/16200909/03/162009 Test 09/03/16 20:10 09/03/16 20:50 White Blood Count 11.7th/mm3 (3.8-10.1) Red Blood Count 4.34mil/mm3 (4.40-5.80) Hemoglobin 12.4g/dL (13.8-17.2) Hematocrit 38.0% (41.0-50.0) Mean Corpuscular Volume 87.6fL (81-100) Mean Corpuscular Hemoglobin 28.6pg (27.0-35.0) Mean Corpuscular Hemoglobin Concent 32.6% (32.0-37.0) Red Cell Distribution Width 15.8% (12.3-15.4) Platelet Count 186bil/L (150-400) Neutrophils (%) (Auto) 92.9% (40-74) Lymphocytes (%) (Auto) 2.9% (14-46) Monocytes (%) (Auto) 3.2% (4-12) Eosinophils (%) (Auto) 0% (0-5) Basophils (%) (Auto) 0.1% (0-3) Hold Purple Top Tube Received (Received) Prothrombin Time 9.7sec (8.1-12.5) Prothromb Time International Ratio 0.91ratio Activated Partial Thromboplast Time 24.1sec (22.8-33.0) D-Dimer 0.3mg/L (<0.50) Hold Blue Top Tube Received (Received) Sodium Level 134mEq/L (134-144) Potassium Level 5.1mEq/L (3.5-5.2) Chloride Level 99mEq/L (97-108) Carbon Dioxide Level 20mmol/L (18-29) Blood Urea Nitrogen 26mg/dL (8-27) Creatinine 0.83mg/dL (0.76-1.27) Estimat Glomerular Filtration Rate 98mL/min (>59) Glucose Level 612mg/dL (60-99) Calcium Level 8.6mg/dL (8.5-10.1) Magnesium Level 1.8mg/dL (1.6-2.6) Total Bilirubin 0.3mg/dL (0.0-1.2) Aspartate Amino Transf (AST/SGOT) 46U/L (0-50) Alanine Aminotransferase (ALT/SGPT) 51U/L (0-44) Alkaline Phosphatase 52U/L (25-160) Troponin T 0.431ug/L (0.0-0.011) Pro-B-Type Natriuretic Peptide 4239pg/mL (0-376) Total Protein 6.5g/dL (6.4-8.4) Albumin 3.7g/dL (3.4-5.0) Hold [place] Top Tube Received (Received) Hold [place] Top Tube Received (Received) Lab Results Interpretation: Hyperglycemia without evidence of ketoacidosis. Elevated troponin. ECG Interpretation ECG Interpretation: Possible acute anterior [place] - will consult collision mechanic Time: 20:59 Interpreted by: ED physician ECG Interpretation: Sinus tachycardia rate [address] depression Signs of acute [place] are not worsening Electroformer believes this is an NSTEMI Time: 21:33 Interpreted by: ED physician Re-Eval/Medical Decision Med Decision/Clinical Course 66-year-old with diabetes and COPD and a history of noncompliance presents with increasing shortness of breath and chest discomfort. He is found to have elevated troponin without significant ST changes on his EKG. Case was discussed with Dr. Peterson, cardiology, and Dr. Ragland, hospitalist. Patient was started on a non-DKA insulin drip and IV heparin. He will be admitted to [facility] telemetry. Time of Eval: 21:15 Patient Status: Condition unchanged Re-Evaluation/Progress Note: Discussed possible acute [place] and that collision mechanic will be consulted. Condition stable. Time of Eval: 21:36 Patient Status: Condition unchanged Re-Evaluation/Progress Note: Pt rechecked. Condition stable. Discussed NSTEMI and need for chest x-ray and need for admission. Pt understands and agrees with plan for admission. All questions addressed. Time of Eval: 23:47 Re-Evaluation/Progress Note: Throughout his stay the patient has been refusing a chest x-ray and will not lay down for a CT. Consultation #1: Referral / Consult Name: Mariano Peterson MD Consulted With: Cardiology Call Returned at: 21:05 Pre Owned Sales Manager: Will see patient, Agrees with eval, Agrees with plan Note: Will review EKG and labs. 0909 repeat consult: recommends to repeat EKG 0930: Agrees with repeat EKG being NSTEMI. Does not recommend cardiac cath at this time. Consultation #2: Referral / Consult Name: Latoya Ragland DO Consulted With: Hospitalist Call Returned at: 22:35 Pre Owned Sales Manager: Will see patient, Agrees with eval, Agrees with plan, Accepts admit Counseled Regarding: Diagnosis, Lab results, Need for admission Discharge & Departure Primary Impression: NSTEMI (non-ST elevated myocardial infarction) Additional Impressions: Hyperglycemia COPD exacerbation Disposition: ADMITTED TO HOSPITAL Discharge Condition All VS Reviewed: Yes Condition: Stable Referrals: Yumiko James MD (PCP) Crit Care Except Billable Proc Time Spent: 30-74 minutes Services Performed: Patient management by me, Time spent at bedside, Reviewing test results, Reviewing imaging, Discussing patient care, Documentation in record Critical Care Notes: 66-year-old male with elevated troponin without EKG changes placed on IV heparin and elevated blood sugar placed on IV insulin infusion and admitted to the PCC. Raimundo Attestation Portions of this note were transcribed by Ramakrishna Clay. I, Dr. Chicas personally performed the history, physical exam and medical decision-making; I reviewed and confirmed the accuracy of the information in the transcribed note. Signed by Raimundo Lombardi, 09/03/162129 copies to: Yumiko James MD, Howard L MD Sep 03, 2016 20:33 RAMAKRISHNA CLAY Sep 03, 2016 20:58
[2016-09-03] MEDS ORDERED: Albuterol-Ipratropium 3 mL Inhalation Solution NEB ONE (20:40)
[2016-09-03] MEDS ORDERED: MethylprednisoLONE Sodium Succinate 62.5 mg/mL 2 mL Inj IVPUSH ONE (20:40)
[2016-09-03] MEDS ORDERED: HYDROmorphone 0.5 mg/0.5 mL iSecure Syringe IVPUSH ONE (20:40)
[2016-09-03] MEDS ORDERED: Albuterol 2.5 mg/3 mL Inhalation Solution NEB ONE (20:40)
[2016-09-03 20:57] LABS: Magnesium 1.8 mg/dL (1.6-2.6)
[2016-09-03 20:58] LABS: TROPONIN T 0.431 ug/L (0.0-0.011)
[2016-09-03] MEDS ORDERED: Insulin Human REGular Inj 100 UNIT in 0.9% Sodium Chloride-Pha MIX 100 ML IV SCH (21:30)
[2016-09-03] MEDS ORDERED: Nitroglycerin 2% 1 Gm Ointment TOPICAL ONE (21:35)
[2016-09-03] MEDS ORDERED: Heparin 25K Unit/500mL 0.45 NS 25,000 UNIT in IV Premix 1 EACH IV ONE (21:35)
[2016-09-03] MEDS ORDERED: MeTOProlol 1 mg/mL 5 mL Inj IVPUSH PRN (21:35)
[2016-09-03] MEDS ORDERED: Heparin 5,000 Unit/mL Inj IVPUSH ONE (21:35)
[2016-09-03 21:54] LABS: D-DIMER 0.3 mg/L (<0.50)
[2016-09-03 22:01] VITALS: BP 127/75; PULSE 107; RESP 22; O2SAT 93
[2016-09-03 22:41] VITALS: PULSE 114; RESP 22; O2SAT 94
[2016-09-03] MEDS ORDERED: Alum-Mag Hydrox-Simeth 30 mL Suspension PO PRN (22:50)
[2016-09-03] MEDS ORDERED: Ondansetron 2 mg/mL 2 mL Inj IVPUSH PRN (22:50)
[2016-09-03] MEDS ORDERED: Senna-Docusate 8.6-50 mg Tablet PO PRN (22:50)
[2016-09-03] MEDS ORDERED: Polyethylene Glycol (PEG) 17 Gm Powder PO PRN (22:50)
[2016-09-03 22:58] LABS: INR 0.91 ratio
[2016-09-04 00:15] VITALS: BP 149/100; PULSE 111; RESP 20; O2SAT 95
[2016-09-04] MEDS: 0.9% Sodium Chloride 1,000 ML IV SCH ×2 (00:19→11:17)
[2016-09-04] MEDS ORDERED: Heparin 25K Unit/500mL 0.45 NS 25,000 UNIT in IV Premix 1 EACH IV SCH (00:40)
[2016-09-04] MEDS ORDERED: Albuterol-Ipratropium 3 mL Inhalation Solution NEB PRN (01:10)
--- NOTE | 2016-09-04 01:12 | PCM.HPMED ---
Subjective Date of Service Sep 03, 2016 Primary Provider: Admitting Physician: Latoya Ragland DO Primary Care Physician: Yumiko James MD Attending Physician: Latoya Ragland DO Chief Complaint: Recurrent chest pain History of Present Illness: 66-year-old male well-known to the hospital with a history of medication noncompliance, and STEMI, COPD, CHF, diabetes type II, hyperlipidemia, and hypertension, who was discharged at noon today after being treated for COPD and improving pneumonia, and HHS, presents with substernal nonradiating 5 out of 10 chest pain that lasted for 4 hours. Patient has a history of NSTEMI with the most recent appearing to be last month. At that time evaluation with cardiac cath was not undertaken due to patient's refusal to lie flat. Patient states that he had an episode of substernal chest pain 4 days ago that lasted for approximately 5 hours. Patient states that the pain again started today but refuses to state what time it started. He denies lightheadedness, dizziness, nausea, vomiting, radiating pain, abdominal pain, diaphoresis, changes in vision , but does endorse chronic shortness of breath. Patient states that he hates taking pills every day and when discussion was had about the need to take Plavix due to his previous NSTEMI and post cath intervention patient states that he does not want to take pills. Patient was on Plavix earlier today as confirmed by the EHR, and would not take an insulin drip due to refusing to have blood glucose checked. ED the patient had a chest x-ray as in the chart. Patient had a mild leukocytosis at 11.7, glucose of 612, and a troponin of 0.431 inches less than previous admission in July but elevated above baseline. Cardiology was consulted from the emergency department and per the ED physician will see the patient on morning. White count is 11.7, hemoglobin 12.4, hematocrit 38, platelets once 86, neutrophil 92.9 Sodium was 134, potassium 5.1, chloride 99, bicarbonate 20, BUN 26, creatinine 0.83, glucose 612, L2 mildly elevated at 51, troponin 0.431, proBNP was 4239 PT/INR was 9.7/0.91, APTT 24.1, d-dimer was negative at 0.3 Review of Systems: Complete review of systems performed; pertinent positives negative as per history of present illness, all other systems reviewed and are negative Allergies Coded Allergies: vancomycin (Verified Allergy, Intermediate, Rash,Itching,, 09/03/16) Per Q: Pt should tolerates vancomycin as long as the rate is slow Home Medications Amlodipine (Amlodipine) 5 Mg Tablet 5 MG PO DAILY Aspirin Chew (Aspirin Chew) 81 Mg Chew 81 MG PO DAILY Atorvastatin Calcium (Atorvastatin Calcium) 20 Mg Tablet 20 MG PO HS Azithromycin (Zithromax) 250 Mg Tablet 250 MG PO DAILY Beclomethasone Dipropionate (Qvar) 8.7 Gm Aer.w.adap 1 PUFF INHALATION BID Clopidogrel (Clopidogrel) 75 Mg Tablet 75 MG PO DAILY Glipizide (Glipizide) 5 Mg Tablet 5 MG PO BIDAC Insuln Asp Prt/Insulin Aspart (NovoLOG 70/30 U100 Insulin Flexpen) 100 Unit/Ml Unit 12 UNIT SUBQ BID Ketoconazole (Nizoral) 120 Ml Shampoo 120 ML TOP BID Lisinopril (Lisinopril) 5 Mg Tablet 5 MG PO DAILY Metformin (Glucophage) 1,000 Mg Tablet 1,000 MG ORAL BID Metoprolol Tartrate (Metoprolol Tartrate) 75 Mg Tablet 75 MG PO BID Prednisone (PredniSONE) 10 Mg Tablet 10 MG PO DAILY take 4 tabs orally for 2 days, 2 tabs for 3 days, 1 tab for 3 days, then 1/2 tab for 4 days Sertraline HCl (Sertraline) 50 Mg Tablet 25 MG PO DAILY Albuterol Sulfate (Ventolin HFA Inhaler) 200 Puff/18 Gm Inhaler 1-2 PUFFS INH DIRECTED PRN PRN For Wheezing Benzonatate (Benzonatate) 100 Mg Capsule 100 MG PO TID PRN PRN For Cough PMH CAD, Non ST elevation HI, August 2013 Left lower extremity cellulitis Hypertriglyceridemia 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" Multiple visits of COPD with exacerbation (patient on chronic O2 2-3 L) History of paroxysmal atrial tachycardia Chronic CHF with systolic and diastolic dysfunction History of nonadherence to medical treatment Chronic venous insufficiency Hx cellulitis Diabetes mellitus Hypertension Surgical History none reported Family History Family hx of DM2 Social History Hx Alcohol Use: No Hx Substance Use: No Hx Tobacco Use: Yes (quit 9 years ago) Smoking Status: Former Smoker Living Arrangement: Homeless Exam Vital Signs Vital Sign - Last Date Time Temp Pulse Resp B/P Pulse Ox O2 Delivery O2 Flow Rate FiO2 09/03/16 22:41 114 22 94 3 09/03/16 22:01 127/75 Nasal Cannula 09/03/16 18:40 37.1 Exam GEN: Disheveled but seems content, no acute distress HEENT: PERRLA, mucous membranes moist, hearing intact, pharynx clear, neck supple Lymph: No lymphadenopathy present Cardiac: Rhythm no murmurs auscultated Respiratory: Diffusely decreased breath sounds with inspiratory wheezes, diffuse crackles, coarse breath sounds Abdomen: Positive bowel sounds, nontender, nondistended, obese Extremities: Significant if he cannot chronic skin changes on the lower extremities bilaterally with chronic erythema; Refills appropriate, pulses are intact in upper extremities but very difficult to feel the lower extremities Neuro: Intact as far as patient would allow examination; cranial nerves II through XII intact Psych: Appropriate mood and affect Skin: Chronic skin changes are noted in extremities, some bruising is also present on the upper extremities Lab and Diagnostics Result Diagram: 09/03/16200909/03/162009 X-Rays, CTs and MRIs Chest x-ray IMPRESSION: Bibasilar lung opacities compatible with pneumonia have decreased in size compared to 08/12/2016, but not completely resolved Dictated by: Macarena Oliver MD, PhD on 08/16/2016 at 17:56 Assessment & Plan 66-year-old medically complex individual with extremely frequent admissions to [facility] due mostly to COPD but also previous ACS who now presents with chest pain that started 4 days ago that was not disclosed to the physicians that discharged him earlier today. Patient has acute elevation of his troponin but he also had this in July, except this time not as severe. He reports another episode of chest pain today. #1 Suspected NSTEMI in setting of known CAD and prior NSTEMI; present on admission; ongoing -Patient has had previous NSTEMI but refused to undergo catheterization per previous notes; this also due to his chronic lung disease that prevents him from laying flat along with his CHF -EKG did not show any ST elevations; sinus tachycardia with heart rate of 115; some inverted questionably depressed T waves in V4 and V5 and V6; cardio has review the EKG -Aspirin 81 mg -Morphine 1-5 mg when necessary for pain -Nitroglycerin for chest pain, SL and strip -Metoprolol tartrate 5 mg IV; PO 75mg added as HR > 100 - Atorvastatin 40mg PO daily -Heparin GTT -Repeat EKG in a.m. -Trend troponins -Patient already on plavix; consider continuing from EHR when confirmed -Nothing by mouth after midnight -Cardiology to see patient in a.m. with questionable catheterization -Of note patient is stating he will likely not be compliant with post catheterization care per his own admission -Questionable if patient has been compliant with his medications for his heart disease; although he has been in the hospital often enough to have received a large portion of these in the last month -Patient on telemetry #2 Hyperosmolar hyperglycemia; present on admission; ongoing -Patient presents blood glucose over 600, very similar to his previous admission 2 days ago -Normal saline at 80ml/hour with intention to not exacerbate his CHF and probable NSTEMI -Started insulin drip with protocol blood glucose checks; when patient refuses will move to sliding scale -Diabetic diet until midnight and then nothing by mouth in anticipation of possible catheterization #3 COPD with recent exacerbation/pneumonia; present on admission; ongoing -Patient presents 6 hours or so after being discharged; patient was on Rocephin and azithromycin with DuoNeb's during the last admission -Patient does have a mild leukocytosis and left shift, but it looks to be resolving from yesterday -Saturating well on room air, and when needed with 3 or 4 L of oxygen; patient uses oxygen outpatient -We will add DuoNeb nebs every 4 while awake as needed #4 chronic congestive heart failure; present on admission; ongoing -Echo was ordered on last admission but was not completed; patient has a history of denying medical treatment -We will defer to cardiology on need for new echo as the patient has previously been noncompliant and unwilling -Patient is on aspirin, Plavix, statin and antihypertensives -Avoid fluid overload; will watch for signs -BNP is elevated 4x baseline, however this is during/after acute HI; #5 Chronic hypertension; present on admission; ongoing - Continue home Amlodipine, Lisinopril Chronic Stable Problems Hypertriglyceridemia 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 Patient has been known to leave AMA on multiple occasions Pain Evaluation: Adequate Pain Control VTE Prophylaxis: Other Resuscitation Status: CPR: Attempt Resuscitation Attending Statement The patient was seen and examined together with house staff on 09/04/16 and I agree with the history, exam and plan as outlined in the note above. Kyle Reed DO Sep 04, 2016 01:12 Latoya Ragland DO Sep 14, 2016 06:43
[2016-09-04] MEDS: Sodium Chloride LOK Flush 10 mL Syringe IVFLUSH SCH ×2 (01:45→08:19)
[2016-09-04] MEDS: Heparin 5,000 Unit/mL Inj IVPUSH PRN ×2 (02:41→09:04)
--- NOTE | 2016-09-04 03:53 | NUR ---
Admit note. Admitted to [facility] from ER via wheel chair. States he will not use bed and that he will stay in his wheelchair. Pt educated re plan of care including q1h blood glucose, NPO status, monitoring and ivf. Pt agreed to care after initially being verbally aggressive. When family arrived pt became abusive and used profanity. Threatened to leave. Confirmed that pt could leave if he wants to. Insulin gtt started per [facility] protocol. Heparin gtt started per cardiac protocol. Denies chest pain or discomforts. Sats on 4l/nc mid 90s. Becomes very short of breath with any activity. Remains NPO.
[2016-09-04] MEDS ORDERED: Nitroglycerin 2% 1 Gm Ointment TOPICAL ONE (03:55)
[2016-09-04 04:00] VITALS: BP 132/77; PULSE 95; RESP 15; O2SAT 94
[2016-09-04 05:58] VITALS: PULSE 89
[2016-09-04 06:08] VITALS: BP 131/81; PULSE 101; RESP 20; O2SAT 96
[2016-09-04 07:39] LABS: APPEARANCE,URINE CLEAR (CLEAR,HAZY); COLOR,URINE YELLOW (YELLOW); OCCULT BLOOD,URINE NEGATIVE (NEGATIVE); UROBILINOGEN,URINE NORMAL (NORMAL)
[2016-09-04 07:53] VITALS: BP 124/84; PULSE 94; RESP 20; O2SAT 95
[2016-09-04 07:54] LABS: BASOPHILS % (AUTO) 0.1 % (0-3); EOSINOPHILS % (AUTO) 0 % (0-5); MONOCYTES % (AUTO) 2.7 % (4-12); Mean Corpuscular Hemoglobin 29.4 pg (27.0-35.0); NEUTROPHILS % (AUTO) 92.6 % (40-74); Platelet Count 185 bil/L (150-400)
[2016-09-04 08:00] VITALS: PULSE 95
--- NOTE | 2016-09-04 08:38 | DRSVH ---
PROCEDURE: X-RAY CHEST ONE VIEW, PORTABLE ([id number]) INDICATIONS: CHEST PAIN TECHNIQUE: One view of the chest was acquired. COMPARISON: [facility], CR, XR CHEST 1VW (PORTABLE), 09/02/2016, 15:54. FINDINGS: Surgical changes and devices: None. Lungs and pleura: No pleural effusions or pneumothorax. Streaky opacities are present at the bilate ral lung bases, slightly increased in extent when compared with the study dated 09/02/16. Mediastinum: Mediastinal contours appear normal. Heart size is normal. Bones and chest wall: No suspicious bony lesions. Overlying soft tissues appear unremarkable. IMPRESSION: Probable bilateral basilar atelectasis or infection/aspiration. Dictated by: Orin Eduardo M.D. on 09/04/2016 at 8:36 Approved by: Orin Eduardo M.D. on 09/04/2016 at 8:36
[2016-09-04 08:40] LABS: TROPONIN T 0.519 ug/L (0.0-0.011)
--- NOTE | 2016-09-04 09:43 | CONS ---
[address] [address] CONSULTATION REPORT PATIENT: JULIA LUNA : 1950 MR#: [id number] ADMIT: 09/03/2016 JOB ID: [id number] DATE OF SERVICE: CARDIOLOGY CONSULTATION: HISTORY OF PRESENT ILLNESS: The patient is a 66-year-old, diabetic male, admitted with chest pain and abnormal troponin and EKG changes. He has been admitted 15 or 16 times over the past year related to a combination of diabetes out of control, pneumonia, COPD and acute myocardial ischemia. On each occasion, he refuses medical care and leaves AMA. He is homeless and apparently lives in his car, has been noncompliant with his medications. When I went in to see him today, he was very belligerent. When asked about compliance with medical care and medical followup, he states that he has seen Dr. James at [facility] on a couple of occasions. He takes his medications occasionally. He is unable to lie down, he says, because of chronic lumbar spine problems and shoulder dislocation in the past, and sleeps sitting up. He currently denies any symptoms of chest discomfort. He refuses to answer many questions and, once again, is markedly belligerent. PHYSICAL EXAMINATION: His examination is notable for the fact that he has a prominent central obesity. He does not appear acutely dyspneic or ill. He is wearing oxygen, sitting in the wheelchair. He has prominent lower extremity edema, with bilateral lower extremity diabetic changes. LABORATORY DATA: This gentleman's lab work shows mild anemia with a somewhat left shift. Blood sugar on admission was 612. His renal function and electrolytes are normal. Troponin level has been significantly elevated over the past month and a half and currently increasing from 0.4 to 0.5. BNP is elevated at 4239. IMPRESSION: This gentleman clearly has very significant underlying ischemic heart disease and chronic obstructive pulmonary disease, and shows evidence of chronically elevated filling pressures probably both in the left and the right ventricles. At this point, however, his medical care is markedly impeded by his belligerence and inability to cooperate with further medical testing or medical care. He is not at all a candidate for any consideration for diagnostic cardiac catheterization. Any attempt to treat him medically is going to be thwarted by his noncompliance. This patient would be better served with psychiatric care and a director social service consultation to better understand his motivation to continue to come back to the hospital when he refuses care once he gets here. Further subspecialty care or consultation in the future is unreasonable to request unless the patient shows a willingness to participate with further evaluation and management.
--- NOTE | 2016-09-04 11:22 | PCM.DIMED ---
Discharge Instructions Date of Service Sep 04, 2016 Dates of Hospitalization Sep 03, 2016 at 23:25 Discharge Diagnosis Discharge Diagnosis 1. Chest pain, Resolved. 2.. COPD 3. Medical noncompliance 4. Diabetes mellitus 2, with a history of hyperglycemia and poor medication compliance. 5. Recent diagnosis of pneumonia, improved. 6. Hypertension. Diet Low fat, Low Sodium, Heart Healthy, Diabetic Activity Limited until seen by PCP Call your provider Shortness of breath Patient Instructions Follow-up Provider: Yumiko James MD Follow-up with PCP in: 1 week Collin High MD Sep 04, 2016 11:22
--- NOTE | 2016-09-04 12:34 | NUR ---
Discharge Pt intermittently compliant with medical care. Pt very verbally abusive when pressed for answers with assessment questions and when speaking with MDs. Pt refused CT scan, MD made aware. Pt very agitated and verbalized that he was leaving to MD. When asked what we could do to help keep Pt from readmitting, Pt verbalized, "I will before I come back to the hospital." Discharge order placed and Pt attempted to leave prior to removing IV sites or going through paperwork. Able to remove Pt's IVs and Pt signed discharge paperwork prior to leaving floor. All belongings accompanied Pt at time of discharge.
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
--- NOTE | 2016-09-21 13:30 | PCM.DC.MED ---
Discharge Summary Date of Service Sep 04, 2016 Dates of Hospitalization Date of Hospital Admission Sep 03, 2016 at 23:25 Date of Discharge: Sep 04, 2016 Providers: Admitting Physician: Latoya Ragland DO Primary Care Physician: Yumiko James MD Attending Physician: Latoya Ragland DO Diagnosis at Time of Discharge Diagnosis at Time of Discharge 1. Chest pain, Resolved. 2.. COPD 3. Medical noncompliance 4. Diabetes mellitus 2, with a history of hyperglycemia and poor medication compliance. 5. Recent diagnosis of pneumonia, improved. 6. Hypertension. Consultations Cardiology, Dr Borges Procedures XRay, CTs & MRIs Chest x-ray IMPRESSION: Bibasilar lung opacities compatible with pneumonia have decreased in size compared to 08/12/2016, but not completely resolved Dictated by: Macarena Oliver MD, PhD on 08/16/2016 at 17:56 ECG 12 Lead Septal Q waves and lateral TWI Invasive Procedures None Brief History 66-year-old male well-known to the hospital with a history of medication noncompliance, and STEMI, COPD, CHF, diabetes type II, hyperlipidemia, and hypertension, who was discharged at noon today after being treated for COPD and improving pneumonia, and HHS, presents with substernal nonradiating 5 out of 10 chest pain that lasted for 4 hours. Patient has a history of NSTEMI with the most recent appearing to be last month. At that time evaluation with cardiac cath was not undertaken due to patient's refusal to lie flat. Patient states that he had an episode of substernal chest pain 4 days ago that lasted for approximately 5 hours. Patient states that the pain again started today but refuses to state what time it started. He denies lightheadedness, dizziness, nausea, vomiting, radiating pain, abdominal pain, diaphoresis, changes in vision , but does endorse chronic shortness of breath. Patient states that he hates taking pills every day and when discussion was had about the need to take Plavix due to his previous NSTEMI and post cath intervention patient states that he does not want to take pills. Patient was on Plavix earlier today as confirmed by the EHR, and would not take an insulin drip due to refusing to have blood glucose checked. ED the patient had a chest x-ray as in the chart. Patient had a mild leukocytosis at 11.7, glucose of 612, and a troponin of 0.431 inches less than previous admission in July but elevated above baseline. Cardiology was consulted from the emergency department and per the ED physician will see the patient on morning. White count is 11.7, hemoglobin 12.4, hematocrit 38, platelets once 86, neutrophil 92.9 Sodium was 134, potassium 5.1, chloride 99, bicarbonate 20, BUN 26, creatinine 0.83, glucose 612, L2 mildly elevated at 51, troponin 0.431, proBNP was 4239 PT/INR was 9.7/0.91, APTT 24.1, d-dimer was negative at 0.3 Hospital Course 66-year-old medically complex individual with extremely frequent admissions to [facility] due mostly to COPD but also previous ACS who now presents with chest pain that started 4 days ago that was not disclosed to the physicians that discharged him earlier today. Patient has acute elevation of his troponin but he also had this in July, except this time not as severe. He reports another episode of chest pain today. #1 Suspected NSTEMI in setting of known CAD and prior NSTEMI; present on admission; ongoing -Patient has had previous NSTEMI but refused to undergo catheterization per previous notes; this also due to his chronic lung disease that prevents him from laying flat along with his CHF -EKG did not show any ST elevations; sinus tachycardia with heart rate of 115; some inverted questionably depressed T waves in V4 and V5 and V6; cardio has review the EKG -Aspirin 81 mg -Morphine 1-5 mg when necessary for pain -Nitroglycerin for chest pain, SL and strip -Metoprolol tartrate 5 mg IV; PO 75mg added as HR > 100 - Atorvastatin 40mg PO daily -Heparin GTT -Repeat EKG in a.m. -Trend troponins -Patient already on plavix; consider continuing from EHR when confirmed -Nothing by mouth after midnight -Cardiology to see patient in a.m. with questionable catheterization -Of note patient is stating he will likely not be compliant with post catheterization care per his own admission -Questionable if patient has been compliant with his medications for his heart disease; although he has been in the hospital often enough to have received a large portion of these in the last month -Patient on telemetry #2 Hyperosmolar hyperglycemia; present on admission; ongoing -Patient presents blood glucose over 600, very similar to his previous admission 2 days ago -Normal saline at 80ml/hour with intention to not exacerbate his CHF and probable NSTEMI -Started insulin drip with protocol blood glucose checks; when patient refuses will move to sliding scale -Diabetic diet until midnight and then nothing by mouth in anticipation of possible catheterization #3 COPD with recent exacerbation/pneumonia; present on admission; ongoing -Patient presents 6 hours or so after being discharged; patient was on Rocephin and azithromycin with DuoNeb's during the last admission -Patient does have a mild leukocytosis and left shift, but it looks to be resolving from yesterday -Saturating well on room air, and when needed with 3 or 4 L of oxygen; patient uses oxygen outpatient -We will add DuoNeb nebs every 4 while awake as needed #4 chronic congestive heart failure; present on admission; ongoing -Echo was ordered on last admission but was not completed; patient has a history of denying medical treatment -We will defer to cardiology on need for new echo as the patient has previously been noncompliant and unwilling -Patient is on aspirin, Plavix, statin and antihypertensives -Avoid fluid overload; will watch for signs -BNP is elevated 4x baseline, however this is during/after acute IL; #5 Chronic hypertension; present on admission; ongoing - Continue home Amlodipine, Lisinopril Chronic Stable Problems Hypertriglyceridemia 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 Patient has been known to leave [facility] on multiple occasions Hospital course: Patient was admitted with recurrent dyspnea in context of COPD. His troponin was elevated, again. He had no chest pain and was seen by cardiology. They recommended no intervention based on his history of non compliance and recommended ongoing medical therapy. He was felt to be stable for discharge and no medication changes were made. Exam As noted. Exam Alert and oriented Lungs clear CV RRR, No MGR Abdomen soft, NT 1+ edema Test 09/03/16 20:10 09/03/16 20:50 09/04/16 06:46 09/04/16 07:35 Hold Purple Top Tube Received (Received) Prothrombin Time 9.7sec (8.1-12.5) Prothromb Time International Ratio 0.91ratio D-Dimer 0.3mg/L (<0.50) Hold Blue Top Tube Received (Received) Magnesium Level 1.8mg/dL (1.6-2.6) Total Bilirubin 0.3mg/dL (0.0-1.2) Aspartate Amino Transf (AST/SGOT) 46U/L (0-50) Alanine Aminotransferase (ALT/SGPT) 51U/L (0-44) Alkaline Phosphatase 52U/L (25-160) Pro-B-Type Natriuretic Peptide 4239pg/mL (0-376) Total Protein 6.5g/dL (6.4-8.4) Albumin 3.7g/dL (3.4-5.0) Hold [place] Top Tube Received (Received) Hold Ramires Top Tube Received (Received) Hemoglobin A1c 11.7% (4.8-5.6) Urine Color Yellow (YELLOW) Urine Appearance Clear (CLEAR,HAZY) Urine pH 5.0 (5.0-8.0) Urine Specific [place] 1.041 (1.003-1.035) Urine Protein Negativemg/dL (NEG,TRACE) Urine Glucose (UA) 1000mg/dL (NEGATIVE) Urine Ketones Negativemg/dL (NEGATIVE) Urine Occult Blood Negative (NEGATIVE) Urine Nitrite Negative (NEGATIVE) Urine Bilirubin Negative (NEGATIVE) Urine Urobilinogen Normalmg/dL (NORMAL) Urine Leukocyte Esterase Negative (NEGATIVE) Urine RBC 0-2/hpf (0-2) Urine WBC 0-5/hpf (0-5) Urine Epithelial Cells Few/hpf (NONE-MOD) Urine Crystals None seen (NONE SEEN) Urine Bacteria None/hpf (NONE-FEW) Urine Hyaline Casts None/lpf (NONE) Urine Granular Casts None seen (NONE SEEN) Urine Waxy Casts None seen (NONE SEEN) Urine Red Blood Cell Casts None seen (NONE SEEN) Urine White Blood Cell Casts None seen (NONE SEEN) Urine Mucus None seen (None Seen) Urine Trichomonas None seen (NONE SEEN) Urine Yeast None (NONE SEEN) Urinalysis Comment None Urine Culture Reflexed Not indicated White Blood Count 9.3th/mm3 (3.8-10.1) Red Blood Count 4.22mil/mm3 (4.40-5.80) Hemoglobin 12.4g/dL (13.8-17.2) Hematocrit 36.7% (41.0-50.0) Mean Corpuscular Volume 87.0fL (81-100) Mean Corpuscular Hemoglobin 29.4pg (27.0-35.0) Mean Corpuscular Hemoglobin Concent 33.8% (32.0-37.0) Red Cell Distribution Width 15.5% (12.3-15.4) Platelet Count 185bil/L (150-400) Neutrophils (%) (Auto) 92.6% (40-74) Lymphocytes (%) (Auto) 3.5% (14-46) Monocytes (%) (Auto) 2.7% (4-12) Eosinophils (%) (Auto) 0% (0-5) Basophils (%) (Auto) 0.1% (0-3) Activated Partial Thromboplast Time 26.8sec (22.8-33.0) Sodium Level 142mEq/L (134-144) Potassium Level 4.6mEq/L (3.5-5.2) Chloride Level 107mEq/L (97-108) Carbon Dioxide Level 22mmol/L (18-29) Blood Urea Nitrogen 22mg/dL (8-27) Creatinine 0.63mg/dL (0.76-1.27) Estimat Glomerular Filtration Rate 135mL/min (>59) Glucose Level 175mg/dL (60-99) Calcium Level 8.3mg/dL (8.5-10.1) Troponin T 0.519ug/L (0.0-0.011) Triglycerides Level 88mg/dL (0-149) Cholesterol Level 171mg/dL (100-199) LDL Cholesterol, Calculated 80.400mg/dL (0-99) VLDL Cholesterol 17.600mg/dL HDL Cholesterol 73mg/dL (>39) Cholesterol/HDL Ratio 2.34 (0.0-4.4) Discharge Medications Discharge Medications Amlodipine (Amlodipine) 5 Mg Tablet 5 MG PO DAILY Prescribed by: EMILIE IQBAL DO Aspirin Chew (Aspirin Chew) 81 Mg Chew 81 MG PO DAILY Prescribed by: CLEMENT PATTON MD Atorvastatin Calcium (Atorvastatin Calcium) 20 Mg Tablet 20 MG PO HS Prescribed by: CLEMENT PATTON MD Beclomethasone Dipropionate (Qvar) 8.7 Gm Aer.w.adap 1 PUFF INHALATION BID Prescribed by: EMILIE IQBAL DO Clopidogrel (Clopidogrel) 75 Mg Tablet 75 MG PO DAILY Prescribed by: BRIGIDO JAIMES DO Glipizide (Glipizide) 5 Mg Tablet 5 MG PO BIDAC Prescribed by: BRIGIDO JAIMES DO Insuln Asp Prt/Insulin Aspart (NovoLOG 70/30 U100 Insulin Flexpen) 100 Unit/Ml Unit 12 UNIT SUBQ BID Prescribed by: BRIGIDO JAIMES DO Isosorbide MN ER (Isosorbide MN ER) 30 Mg Tab.er.24h 30 MG PO DAILY Prescribed by: COLLIN LUNA MD Ketoconazole (Nizoral) 120 Ml Shampoo 120 ML TOP BID Prescribed by: COLLIN LUNA MD Lisinopril (Lisinopril) 5 Mg Tablet 5 MG PO DAILY Prescribed by: BRIGIDO JAIMES DO Metformin (Glucophage) 1,000 Mg Tablet 1,000 MG ORAL BID (Reported) Metoprolol Tartrate (Metoprolol Tartrate) 75 Mg Tablet 75 MG PO BID (Reported) Sertraline HCl (Sertraline) 50 Mg Tablet 25 MG PO DAILY Prescribed by: EMILIE IQBAL DO As needed Albuterol Sulfate (Ventolin HFA Inhaler) 200 Puff/18 Gm Inhaler 1-2 PUFFS INH DIRECTED PRN PRN For Wheezing Prescribed by: GABRIELLE MAURO DO Benzonatate (Benzonatate) 100 Mg Capsule 100 MG PO TID PRN PRN For Cough Prescribed by: CLEMENT PATTON MD Nitroglycerin SL (Nitroglycerin SL) 0.4 Mg Tab.subl 0.4 MG SL Q5MIN PRN PRN For Chest Pain Prescribed by: DANI FUENTES DO Followup Plan Disposition: Home Discharge Diet: Low fat, Low Sodium, Heart Healthy, Diabetic Discharge Activity: Limited until seen by PCP Follow-up Provider: Yumiko James MD Follow-up with PCP in: 1 week Time spent 40 minutes Collin Luna MD Sep 21, 2016 13:30
== END 2016-09-04 11:50 | disposition left against medical advice (07) | DRG 313 ==
LOC: SED 18:36 → PCC 23:25
PROVIDERS: ADMIT Internal Medicine; ATTEND Internal Medicine
DX: R07.9 Chest pain, unspecified (principal); I50.42 Chronic combined systolic (congestive) and diastolic (congestive) heart failure; J44.9 Chronic obstructive pulmonary disease, unspecified; I10 Essential (primary) hypertension; E78.5 Hyperlipidemia, unspecified; I25.10 Atherosclerotic heart disease of native coronary artery without angina pectoris; Z87.891 Personal history of nicotine dependence; E11.65 Type 2 diabetes mellitus with hyperglycemia; Z99.81 Dependence on supplemental oxygen; I25.2 Old myocardial infarction; Z79.82 Long term (current) use of aspirin; Z91.19 Patient's noncompliance with other medical treatment and regimen

== ENCOUNTER 2016-09-04 19:02 | Emergency (ER) | payer MEDICARE ==
[~2016-09-04] VITALS: Ht 170.2 cm; Wt 97.7 kg
[2016-09-04 19:06] VITALS: BP 119/74; PULSE 112; RESP 21; O2SAT 92
[2016-09-04] MEDS ORDERED: Nystatin 100,000 Unit/Gm 15 Gm Powder TOPICAL ONE (21:25)
[2016-09-04] MEDS ORDERED: Nystatin 100,000 Unit/Gm 15 Gm Powder TOPICAL SCH ×2 (21:36→21:45)
--- NOTE | 2016-09-04 21:37 | ED.REPORT ---
HPI-Dyspnea / Wheezing Date of Service Sep 04, 2016 ED Provider: Kate Cassidy MD History of Present Illness: 66-year-old male well-known to the hospital with a history of medication noncompliance and many episodes of leaving against medical advice, STEMI, COPD, CHF, diabetes type II, hyperlipidemia, and hypertension, NSTEMI with the most recent appearing to be last month. He was seen by cardiology yesterday reported patient is not a candidate for interventional measures because of his complete unwillingness to cooperate with medical advice, with suggestions for psychiatric consultation and director of social work first. He is currently homeless and living in his car. He presents today with regrets of leaving AMA this morning and reports shortness of breath not corrected by albuterol and nebulizer use in his car. Nursing Notes Stated Complaint: SHORTNESS OF BREATH Chief Complaint: Respiratory Distress Nursing Notes Reviewed: Yes Allergies: Coded Allergies: vancomycin (Verified Allergy, Intermediate, Rash,Itching,, 09/03/16) Per Q: Pt should tolerates vancomycin as long as the rate is slow Scheduled Amlodipine (Amlodipine) 5 Mg Tablet 5 MG PO DAILY Aspirin Chew (Aspirin Chew) 81 Mg Chew 81 MG PO DAILY Atorvastatin Calcium (Atorvastatin Calcium) 20 Mg Tablet 20 MG PO HS Azithromycin (Zithromax) 250 Mg Tablet 250 MG PO DAILY Beclomethasone Dipropionate (Qvar) 8.7 Gm Aer.w.adap 1 PUFF INHALATION BID Clopidogrel (Clopidogrel) 75 Mg Tablet 75 MG PO DAILY Glipizide (Glipizide) 5 Mg Tablet 5 MG PO BIDAC Insuln Asp Prt/Insulin Aspart (NovoLOG 70/30 U100 Insulin Flexpen) 100 Unit/Ml Unit 12 UNIT SUBQ BID Ketoconazole (Nizoral) 120 Ml Shampoo 120 ML TOP BID Lisinopril (Lisinopril) 5 Mg Tablet 5 MG PO DAILY Metformin (Glucophage) 1,000 Mg Tablet 1,000 MG ORAL BID Metoprolol Tartrate (Metoprolol Tartrate) 75 Mg Tablet 75 MG PO BID Prednisone (PredniSONE) 10 Mg Tablet 10 MG PO DAILY take 4 tabs orally for 2 days, 2 tabs for 3 days, 1 tab for 3 days, then 1/2 tab for 4 days Sertraline HCl (Sertraline) 50 Mg Tablet 25 MG PO DAILY Scheduled PRN Albuterol Sulfate (Ventolin HFA Inhaler) 200 Puff/18 Gm Inhaler 1-2 PUFFS INH DIRECTED PRN PRN For Wheezing Benzonatate (Benzonatate) 100 Mg Capsule 100 MG PO TID PRN PRN For Cough General Time Seen by MD: 19:45 Chief Complaint Shortness of breath Hx Obtained From: Patient Past Medical History Past Medical History Notes: PCP: Dr. 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" Multiple visits of COPD with exacerbation (patient on chronic O2 2-3 L) History of paroxysmal atrial tachycardia Chronic CHF with systolic and diastolic dysfunction, echo August 2013 with an decreased left ventricular ejection fraction History of nonadherence to medical treatment Chronic venous insufficiency Hx cellulitis Reports: COPD, Congestive heart failure, Diabetes mellitus, Hyperlipidemia, Hypertension Reports: Obesity Past Surgical History None Family History Reports: Diabetes mellitus Smoking History Former Smoker Social History Patient is currently living in his car Alcohol Use: Denies alcohol use Drug Use: Denies drug use Other Social History: Poor social support, Frequent ED visitor, Homeless 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 Physical Exam Physical Exam Notes: General: Elderly and obese gentleman sitting in his wheelchair completely closed and urine-soaked genes, well-developed, well-nourished, appropriately interactive HEENT: Normocephalic, atraumatic. External ears without defect. Pupils equal, round, and reactive to light and accommodation. Anicteric sclerae, moist conjunctivae, and no lid lag. Oropharynx free of erythema and cobble stoning with moist mucosa. Neck: Supple with full range of motion. No jugular venous distension. No bruits. No lymphadenopathy or thyromegaly. Cardiovascular: Regular rate and rhythm with no murmurs, rubs, or gallops appreciated Pulmonary: Clear to auscultation bilaterally with mild wheezes, no rhonchi. Increased respiratory effort with use of accessory muscles. Abdomen: Bowel tones present. Soft, nontender, obese, nondistended. No hepatosplenomegaly or masses appreciated. Extremities: No clubbing, cyanosis, edema, or lymphadenopathy appreciated. Skin: Normal temperature, turgor, and texture; no rash, ulcers, or subcutaneous nodules appreciated. Neurological: Cranial nerves grossly intact. Normal muscle strength, tone, and bulk. Reflexes, coordination, and sensory function within normal limits. Upon his wheelchair. Psychiatric: Abnormal mood and affect. Alert and oriented to person, place, and time. Initial Vital Signs Vital Signs (First) Date Time Temp Pulse Resp B/P Pulse Ox O2 Delivery O2 Flow Rate FiO2 09/04/16 19:06 35.9 112 21 119/74 92 Room Air 09/04/16 22:43 4 Interpretation & Diagnostics Lab Results Interpretation Test 09/04/16 20:05 09/04/16 22:35 Troponin T 0.382ug/L (0.0-0.011) Hold Ramires Top Tube Received (Received) Urine Color Yellow (YELLOW) Urine Appearance Clear (CLEAR,HAZY) Urine pH 5.5 (5.0-8.0) Urine Specific [place] 1.015 (1.003-1.035) Urine Protein Negativemg/dL (NEG,TRACE) Urine Glucose (UA) >1000mg/dL (NEGATIVE) Urine Ketones Negativemg/dL (NEGATIVE) Urine Occult Blood Negative (NEGATIVE) Urine Nitrite Negative (NEGATIVE) Urine Bilirubin Negative (NEGATIVE) Urine Urobilinogen Normalmg/dL (NORMAL) Urine Leukocyte Esterase Negative (NEGATIVE) Urine RBC 0-2/hpf (0-2) Urine WBC 0-5/hpf (0-5) Urine Epithelial Cells Few/hpf (NONE-MOD) Urine Crystals None seen (NONE SEEN) Urine Bacteria None/hpf (NONE-FEW) Urine Hyaline Casts None/lpf (NONE) Urine Granular Casts None seen (NONE SEEN) Urine Waxy Casts None seen (NONE SEEN) Urine Red Blood Cell Casts None seen (NONE SEEN) Urine White Blood Cell Casts None seen (NONE SEEN) Urine Mucus None seen (None Seen) Urine Trichomonas None seen (NONE SEEN) Urine Yeast None (NONE SEEN) Urine Culture Reflexed Not indicated Re-Eval/Medical Decision Med Decision/Clinical Course Mr. Vincent High has been admitted twice last 2 days and left AMA on his most recent visit this morning. He was admitted for pneumonia several days ago and for elevated troponins, EKG changes, shortness of breath and COPD yesterday. He was seen by cardioloy for evaluation of cardiac intervention by catheterization for elevated troponins ~0.5, and was determined that he has significant myocardial ischemia and COPD with recommendations for psychiatric evaluation and director of social work prior to any cardiac interventions. Differential includes instantly, COPD exacerbation, malingering, psychiatric illness, urinary incontinence. His troponins are currently trending down at 0.3, which is reassuring. He has last-minute complaints of scrotal pain severe that he would like treated. We are waiting urine dip urinalysis as well as nystatin powder. He also received DuoNeb treatment. We will treat him for his scrotal pain and discharge him home. Re-Evaluation/Progress #1: Time of Eval: 22:14 Patient Status: Condition improved Re-Evaluation/Progress Note: Patient is rechecked. He is informed of his results. Patient agrees with treatment plan. Re-Evaluation/Progress #2: Time of Eval: 22:40 Patient Status: Condition improved Re-Evaluation/Progress Note: Patient is rechecked. Further history of present illness is obtained. Patient understands and agrees to the treatment plan. Counseled Regarding: Diagnosis, Lab results, Need for follow-up, When/why to return to ED Discharge & Departure Impression: Primary Impression: Shortness of breath Additional Impression: Scrotal pain Disposition: Home Discharge Condition All VS Reviewed: Yes Condition: Stable Additional Instructions: During you visit to [facility] Emergency Department we obtained blood work and troponin levels which is a chemical measure of your heart health. Her previous stay new troponins were elevated at 0.5 there are trending downward not a 0.3 this is reassuring. All your lab values this morning were within normal limits. We will send you home with - Nystatin powder to use twice a day. Do not hesitate to call emergency services or your primary care physician if you experience any of the following. -High unrelenting fevers. -Uncontrolled vomiting. -Severe hypertension. -Syncope or loss of consciousness. -Chest pain or severe shortness of breath. Follow up with your primary care physician in 1-2 weeks time following your emergency department visit for medication checks and general well-being. Referrals: Yumiko James MD (PCP) Attending Statement 66-year-old male with extensive past medical history, well-known to this facility, here with his usual complaint of chest pain and shortness of breath. Physical exam Gen.: Chronically ill appearing, malodorous, disheveled, alert and oriented 3 Cardiac: Regular rate and rhythm Pulmonary: Diffusely wheezy and coarse throughout GI: Abdomen soft, nontender, nondistended Extremities: No clubbing, cyanosis, edema. Differential diagnoses includes but is not limited to ACS versus pneumonia versus malingering versus COPD exacerbation. Patient had labs earlier today which were at his baseline. His troponin is trending downwards. His chest x- ray was from yesterday was unremarkable for him. At this time, I feel patient is stable for discharge with downward trending troponin and referral for primary care. He is amenable to discharge. copies to: Yumiko James MD, COREY P DO Sep 04, 2016 20:23 JOHN APONTE Sep 04, 2016 23:07 Kate Cassidy MD Sep 05, 2016 03:08
[2016-09-04] MEDS ORDERED: Albuterol-Ipratropium 3 mL Inhalation Solution NEB ONE (22:10)
[2016-09-04 22:43] VITALS: BP 131/76; PULSE 101; RESP 18; O2SAT 95
[2016-09-04 23:38] VITALS: BP 131/76; PULSE 101; RESP 18; O2SAT 95
[2016-09-04 23:39] LABS: APPEARANCE,URINE CLEAR (CLEAR,HAZY); COLOR,URINE YELLOW (YELLOW); OCCULT BLOOD,URINE NEGATIVE (NEGATIVE); PH,URINE 5.5 (5.0-8.0); UROBILINOGEN,URINE NORMAL (NORMAL)
--- NOTE | 2016-09-05 15:04 | PCM.DC.MED ---
Discharge Summary Date of Service Sep 04, 2016 Dates of Hospitalization Date of Hospital Admission 09/03/2016 Date of Discharge: Sep 04, 2016 Providers: Admitting Physician: Primary Care Physician: Yumiko James MD Attending Physician: Diagnosis at Time of Discharge Diagnosis at Time of Discharge 1. Chest pain, transient. 2. Medication noncompliance. 3. COPD with recent exacerbation. 4. Chronic hypoxic respiratory failure. 5. Minimally elevated troponin. 6. DM 2 with recurrent hyperglycemia in context of medication noncompliance. Consultations Cardiology, Dr. Borges Procedures XRay, CTs & MRIs Chest x-ray on September 03 revealing bibasilar atelectasis ECG 12 Lead Sinus rhythm with septal Q waves and a lateral repolarization abnormality T- wave inversions. Invasive Procedures None Other Diagnostics None Brief History Transient chest pain. Hospital Course The patient had been discharged earlier on the day of readmission. He apparently developed complaint of chest pain return to the ER. There his electrocardiogram revealed ongoing lateral repolarization abnormalities. The patient had mildly elevated troponin and was made to the hospital. Cardiology is consulted and the patient refused to interact with cardiology in a meaningful way. They correctly and noted that he would not be an candidate for any type of intervention or invasive testing as he has proven time and time again that he is unwilling or unable to take medications on a reliable basis. This is prohibitive to him from having intervention such as stenting which she require antiplatelet agents to be taken on a reliable basis. On the day of discharge options discussed with the patient. He has been coming back every day with hyperglycemia ongoing complaints of dyspnea with his ongoing chronic respiratory failure and COPD. The patient could provide no information or planning and what might change in terms of his health care in the future. He also met clear had no interest in medical opinions or other testing at the hospital. The patient requested discharge and given compliance patterns it was felt that he would not be appropriate for further diagnostic testing or inpatient treatment given his general behavior towards staff. Exam Vital Signs (Last) Date Time Temp Pulse Resp B/P Pulse Ox O2 Delivery O2 Flow Rate FiO2 09/04/16 23:38 36.2 101 18 131/76 95 Nasal Cannula 4 Exam Belligerent and shouting. Patient using profanities at staff. Patient stated he would rather leave and never come back to the hospital again but rather . Lungs clear with her for breath sounds and minimal expiratory wheezing. Heart is regular without murmur. Abdomen is distended but nontender. Patient's alert and oriented 3. Test 09/04/16 20:05 09/04/16 22:35 Troponin T 0.382ug/L (0.0-0.011) Hold Ramires Top Tube Received (Received) Urine Color Yellow (YELLOW) Urine Appearance Clear (CLEAR,HAZY) Urine pH 5.5 (5.0-8.0) Urine Specific [place] 1.015 (1.003-1.035) Urine Protein Negativemg/dL (NEG,TRACE) Urine Glucose (UA) >1000mg/dL (NEGATIVE) Urine Ketones Negativemg/dL (NEGATIVE) Urine Occult Blood Negative (NEGATIVE) Urine Nitrite Negative (NEGATIVE) Urine Bilirubin Negative (NEGATIVE) Urine Urobilinogen Normalmg/dL (NORMAL) Urine Leukocyte Esterase Negative (NEGATIVE) Urine RBC 0-2/hpf (0-2) Urine WBC 0-5/hpf (0-5) Urine Epithelial Cells Few/hpf (NONE-MOD) Urine Crystals None seen (NONE SEEN) Urine Bacteria None/hpf (NONE-FEW) Urine Hyaline Casts None/lpf (NONE) Urine Granular Casts None seen (NONE SEEN) Urine Waxy Casts None seen (NONE SEEN) Urine Red Blood Cell Casts None seen (NONE SEEN) Urine White Blood Cell Casts None seen (NONE SEEN) Urine Mucus None seen (None Seen) Urine Trichomonas None seen (NONE SEEN) Urine Yeast None (NONE SEEN) Urine Culture Reflexed Not indicated Discharge Medications Discharge Medications Amlodipine (Amlodipine) 5 Mg Tablet 5 MG PO DAILY Prescribed by: EMILIE IQBAL DO Aspirin Chew (Aspirin Chew) 81 Mg Chew 81 MG PO DAILY Prescribed by: CLEMENT PATTON MD Atorvastatin Calcium (Atorvastatin Calcium) 20 Mg Tablet 20 MG PO HS Prescribed by: CLEMENT PATTON MD Azithromycin (Zithromax) 250 Mg Tablet 250 MG PO DAILY Prescribed by: EMILIE IQBAL DO Beclomethasone Dipropionate (Qvar) 8.7 Gm Aer.w.adap 1 PUFF INHALATION BID Prescribed by: EMILIE IQBAL DO Clopidogrel (Clopidogrel) 75 Mg Tablet 75 MG PO DAILY Prescribed by: BRIGIDO JAIMES DO Glipizide (Glipizide) 5 Mg Tablet 5 MG PO BIDAC Prescribed by: BRIGIDO JAIMES DO Insuln Asp Prt/Insulin Aspart (NovoLOG 70/30 U100 Insulin Flexpen) 100 Unit/Ml Unit 12 UNIT SUBQ BID Prescribed by: BRIGIDO JAIMES DO Ketoconazole (Nizoral) 120 Ml Shampoo 120 ML TOP BID Prescribed by: COLLIN LUNA MD Lisinopril (Lisinopril) 5 Mg Tablet 5 MG PO DAILY Prescribed by: BRIGIDO JAIMES DO Metformin (Glucophage) 1,000 Mg Tablet 1,000 MG ORAL BID (Reported) Metoprolol Tartrate (Metoprolol Tartrate) 75 Mg Tablet 75 MG PO BID (Reported) Prednisone (PredniSONE) 10 Mg Tablet 10 MG PO DAILY take 4 tabs orally for 2 days, 2 tabs for 3 days, 1 tab for 3 days, then 1/2 tab for 4 days Prescribed by: EMILIE IQBAL DO Sertraline HCl (Sertraline) 50 Mg Tablet 25 MG PO DAILY Prescribed by: EMILIE IQBAL DO As needed Albuterol Sulfate (Ventolin HFA Inhaler) 200 Puff/18 Gm Inhaler 1-2 PUFFS INH DIRECTED PRN PRN For Wheezing Prescribed by: GABRIELLE MAURO DO Benzonatate (Benzonatate) 100 Mg Capsule 100 MG PO TID PRN PRN For Cough Prescribed by: CLEMENT PATTON MD Followup Plan Disposition: Home (patient lives in his car, where he has oxygen and oxygen tanks and his regular medications.) Follow-up Provider: Yumiko James MD Follow-up with PCP in: 1 week Time spent 35 minutes Collin Luna MD Sep 05, 2016 15:04
== END 2016-09-04 23:40 | disposition home or self-care (01) ==
LOC: SED 19:02
DX: R06.02 Shortness of breath (principal); N50.82 Scrotal pain; I25.10 Atherosclerotic heart disease of native coronary artery without angina pectoris; I25.2 Old myocardial infarction; I11.0 Hypertensive heart disease with heart failure; E11.59 Type 2 diabetes mellitus with other circulatory complications; I50.9 Heart failure, unspecified; J44.9 Chronic obstructive pulmonary disease, unspecified; E78.5 Hyperlipidemia, unspecified; Z79.82 Long term (current) use of aspirin; Z79.4 Long term (current) use of insulin; Z79.84 Long term (current) use of oral hypoglycemic drugs; Z87.891 Personal history of nicotine dependence; Z59.0 Homelessness; Z88.1 Allergy status to other antibiotic agents; Z79.52 Long term (current) use of systemic steroids; Z91.14 Patient's other noncompliance with medication regimen

== ENCOUNTER 2016-09-06 10:07 | Inpatient (IN) | payer MEDICARE ==
--- NOTE | 2016-09-05 23:00 | NUR ---
IV/Skin issues Patient stated that he accidently pulled his IV out, patient refuses to let staff start an IV tonight, will reassess in AM. 0030 - Family stated that patient is requesting his Nystatin powder and Ketoconazole shampoo for his groin, patient refusing to let staff assess skin and refuses to take any clothing off, paged to notify.
[~2016-09-06] VITALS: Ht 170.2 cm; Wt 100.4 kg
[2016-09-06] VITALS (11 sets, daily range): BP systolic 113–147; BP diastolic 76–96; PULSE 84–121; RESP 16–30; O2SAT 93–97
[2016-09-06] MEDS ORDERED: Albuterol-Ipratropium 3 mL Inhalation Solution NEB ONE (10:45)
[2016-09-06] MEDS ORDERED: Diltiazem 5 mg/mL 5 mL Inj IVPUSH ONE (10:55)
--- NOTE | 2016-09-06 10:55 | ED.REPORT ---
HPI-Chest Pain 40 and Over Date of Service Sep 06, 2016 ED Provider: Antonio Chowdhury MD Pt is a 66 year old male with a hx of HTN, DM2, COPD, emphysema, heart disease, and medication noncompliance presenting to the ED complaining of 8/10 mid chest pain and SOB onset last night. The pain does not radiate, and is intermittent. He estimates that the episodes last for a few minutes. This morning the pain was increased with exertion. Denies diaphoresis or unusual swelling. He is not on any medications for his heart, and his family reports that they were unaware that he was diagnosed with heart disease. Pt on is currently on albuterol, prednisone, and is prescribed metformin and aspirin but is not currently taking them. He was seen in the ED yesterday with similar symptoms. Nursing Notes Stated Complaint: SOB Chief Complaint: Chest Pain Nursing Notes Reviewed: Yes (CaseStack, Tappx not reconciled) Allergies: Coded Allergies: vancomycin (Verified Allergy, Intermediate, Rash,Itching,, 09/03/16) Per Q: Pt should tolerates vancomycin as long as the rate is slow Scheduled Amlodipine (Amlodipine) 5 Mg Tablet 5 MG PO DAILY Aspirin Chew (Aspirin Chew) 81 Mg Chew 81 MG PO DAILY Atorvastatin Calcium (Atorvastatin Calcium) 20 Mg Tablet 20 MG PO HS Azithromycin (Zithromax) 250 Mg Tablet 250 MG PO DAILY Beclomethasone Dipropionate (Qvar) 8.7 Gm Aer.w.adap 1 PUFF INHALATION BID Clopidogrel (Clopidogrel) 75 Mg Tablet 75 MG PO DAILY Glipizide (Glipizide) 5 Mg Tablet 5 MG PO BIDAC Insuln Asp Prt/Insulin Aspart (NovoLOG 70/30 U100 Insulin Flexpen) 100 Unit/Ml Unit 12 UNIT SUBQ BID Ketoconazole (Nizoral) 120 Ml Shampoo 120 ML TOP BID Lisinopril (Lisinopril) 5 Mg Tablet 5 MG PO DAILY Metformin (Glucophage) 1,000 Mg Tablet 1,000 MG ORAL BID Metoprolol Tartrate (Metoprolol Tartrate) 75 Mg Tablet 75 MG PO BID Prednisone (PredniSONE) 10 Mg Tablet 10 MG PO DAILY take 4 tabs orally for 2 days, 2 tabs for 3 days, 1 tab for 3 days, then 1/2 tab for 4 days Sertraline HCl (Sertraline) 50 Mg Tablet 25 MG PO DAILY Scheduled PRN Albuterol Sulfate (Ventolin HFA Inhaler) 200 Puff/18 Gm Inhaler 1-2 PUFFS INH DIRECTED PRN PRN For Wheezing Benzonatate (Benzonatate) 100 Mg Capsule 100 MG PO TID PRN PRN For Cough General Time Seen by MD: 10:33 Chief Complaint Chest pain, Shortness of breath Hx Obtained From: Patient, Daughter Arrived By: Walk-in Sudden in Onset?: No Onset Occurred: Yesterday Symptom Duration: Intermittent Quality: Painful Migration/Movement: Reports: None Severity: Current: Pain level 8 out of 10 Severity: Maximum: Severe Recent Healthcare: Recent doctor visit, Recent hospitalization Similar Sx Previous: Yes Risk Factors )( CAD Risk Stratification Diabetes mellitus Hyperlipidemia Hypertension Known CAD Risk factors reviewed )( TAD Risk Stratification Hypertension Risk factors reviewed Past Medical History Past Medical History Notes: PCP: Dr. 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" Multiple visits of COPD with exacerbation (patient on chronic O2 2-3 L) History of paroxysmal atrial tachycardia Chronic CHF with systolic and diastolic dysfunction, echo August 2013 with an decreased left ventricular ejection fraction History of nonadherence to medical treatment Chronic venous insufficiency Hx cellulitis Reports: COPD, Congestive heart failure, Diabetes mellitus, Hyperlipidemia, Hypertension Reports: Obesity Past Surgical History None Family History Reports: Diabetes mellitus Smoking History Former Smoker Social History Patient is currently living in his car Alcohol Use: Denies alcohol use Drug Use: Denies drug use Other Social History: Poor social support, Frequent ED visitor, Homeless 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 Physical Exam Patient is uncooperative and intermittently hostile. The patient refuses to get into a gown, refuses to get into the gurney. Previous visit, oriented room indicates that he wants "put him out of his misery " with indication he wants me to shoot, which he has stated more specifically in the past. Initial Vital Signs Vital Signs (First) Date Time Temp Pulse Resp B/P Pulse Ox O2 Delivery O2 Flow Rate FiO2 09/06/16 10:20 36.5 30 113/78 Room Air 09/06/16 11:10 121 93 2 Initial VS: Reviewed, Unavailable (incomplete) Head / Eyes: Atraumatic, Normocephalic, PERRL ENT: Mucous membranes moist, Conjunctiva normal, No scleral icterus Neck: Supple, Non-tender, Full range of motion Skin: Warm, Dry, No cyanosis Neurologic: Alert, Oriented, Nonfocal General/Constitutional: Awake, Alert Appearance / Presentation: Positive: Obese Sitting in a chair and refuses to get into a gurney or put on a gown. Semi-abusive and hostile. Respiratory / Chest: Atraumatic Dyspnic. No bronchospasm which I usually appreciate in him. Cardiovascular: No murmurs Heart Rate / Rhythm: Positive: Tachycardia (More than baseline) Lower Extremity / Pelvis / MS: Neurologic intact, Vascular intact +2 pitting edema with severe venostasis changes Psychiatric: Judgment/insight NL Continues to ask me to shoot him and put him out of his misery. Expresses anger, frustration and contempt. Appears to have adequate decisional capacity. Interpretation & Diagnostics Lab Results Interpretation Result Diagram: 09/06/16 1132 09/06/16 1132 Test 09/06/16 11:32 09/06/16 11:47 White Blood Count 7.4th/mm3 (3.8-10.1) Red Blood Count 4.42mil/mm3 (4.40-5.80) Hemoglobin 12.8g/dL (13.8-17.2) Hematocrit 39.1% (41.0-50.0) Mean Corpuscular Volume 88.5fL (81-100) Mean Corpuscular Hemoglobin 29.0pg (27.0-35.0) Mean Corpuscular Hemoglobin Concent 32.7% (32.0-37.0) Red Cell Distribution Width 16.3% (12.3-15.4) Platelet Count 168bil/L (150-400) Neutrophils (%) (Auto) 87.7% (40-74) Lymphocytes (%) (Auto) 4.0% (14-46) Monocytes (%) (Auto) 5.8% (4-12) Eosinophils (%) (Auto) 0.1% (0-5) Basophils (%) (Auto) 0.1% (0-3) Sodium Level 139mEq/L (134-144) Potassium Level 4.4mEq/L (3.5-5.2) Chloride Level 100mEq/L (97-108) Carbon Dioxide Level 22mmol/L (18-29) Blood Urea Nitrogen 21mg/dL (8-27) Creatinine 0.83mg/dL (0.76-1.27) Estimat Glomerular Filtration Rate 98mL/min (>59) Glucose Level 361mg/dL (60-99) Calcium Level 8.6mg/dL (8.5-10.1) Total Bilirubin 0.4mg/dL (0.0-1.2) Aspartate Amino Transf (AST/SGOT) 17U/L (0-50) Alanine Aminotransferase (ALT/SGPT) 53U/L (0-44) Alkaline Phosphatase 52U/L (25-160) Troponin T 0.554ug/L (0.0-0.011) Total Protein 6.1g/dL (6.4-8.4) Albumin 3.6g/dL (3.4-5.0) Thyroid Stimulating Hormone (TSH) 0.732uIU/mL (0.450-4.500) Hold Ramires Top Tube Received (Received) Lab Results Interpretation: CBC normal CMP hyperglycemia Troponin significant elevated, highest level yet, up from yesterday (0.34 yesterday, down from prior) ECG Interpretation ECG Interpretation: Narrow complex tachycardia with a rate of 184. Slightly irregular, but mostly regular. SVT vs afib. ST depression laterally at v4 v5 v6. All new compared to EKG dated September 04 2016. Time: 10:47 Interpreted by: ED physician ECG Interpretation: Markedly improved. Tachy dysrhythmia has resolved. Subtle ST depression v4v5 remains. Inverted T wave from the other day has resolved. Time: 12:19 Interpreted by: ED physician X-Ray Chest Interpretation Chest Xray Interpretation: IMPRESSION: Improved aeration at the lung bases when compared with the prior study. Dictated by: Orin Eduardo M.D. on 09/06/2016 at 11:15 View: Portable, 1 view Interpretation / Wet Read by: Interpret - Radiologist Re-Eval/Medical Decision Med Decision/Clinical Course This is a extremely difficult 66-year-old male with known coronary disease and severe COPD and diabetes with a long history of medical noncompliance, who lives out of his vehicle. This hospitalizations and recent months. He presents brought in by his family, with a complaint of chest pain. This had some severe chest pain last night and this morning, and appears short of breath , the family is very concerned and brought him in. The patient refuses to answer questions about his history initially. She was recently admitted with an N STEMI, and have cardiology consult-see theoir notes-given the patient's noncompliance, refusal to cooperate in care, and overall pattern is he is not a candidate for any sort of invasive treatment. The family says they were not aware that he had been diagnosed with cardiac disease. (He has had several presentations with elevated troponins and a presumption of coronary disease, and frequently leaves.) Today, he is not bronchospastic-however he is newly tachycardic with a narrow complex tachydysrhythmia rate of 180. Patient denies current chest pain, and I do not appreciate bronchospasm he often presents with. However he does request his regular nebulizer, and he notes that his power source in his vehicle then lives out of his broken, and he can even uses nebs and his vehicle at present. The patient received a dose of diltiazem for rate control, with a subsequent EKG demonstrating a normal rate, resolution of the rate related ischemic changes. Blood work is notable again for a bump up in the troponin significant at 0.5 suggesting again that there has been a component of cardiac injury. This increased from yesterday. Also very difficult situation, as the patient's often noncompliant. He admits to taking his medicines only when he wants in "I do not believe an pills". He agreed to receiving aspirin, medicine and initially cooperative. I attempted a long conversation with him and indicate were happy to help, but that the patient is undermining his health I failing to comply with any recommendations. The patient's only marginally knowledge of this. He reiterates that he hates medicines, he does not necessarily believe him when I tell him he has had heart damage and heart attack, as he believes he would just be if that was the case. The family who accompanied him are quite concerned. He immediately asked coffee had a heart attack why did not go for cardiac catheterization, at which point the patient simultaneously spoke up with some expletives, and reiterated his refusal to cooperate - which I pointed out was the same response the vise hand received. This point the family wants the patient admitted, the patient's willing to be admitted, he states he has no power and cannot do his basic management of this vehicle at present-and social work specialist has no other options at this point. The family indicate that they are working to become official caretakers for the patient. While the patient is agreeable to admission, he remains poorly motivated, and is very clear he will only selectively participate in his care. In short, he again does not demonstrate even a low level of cooperativeness to indicate appropriateness for any type of cardiology intervention. (See the cardiology note as well). He remains intermittently rude and inappropriate to staff Patient is improved. He did receive aspirin. He denies any chest pain. This point admission to the hospitalist service-at least while his car ramirez being repaired surgically can continue to his baseline meds, is warranted. Limited medical management is the only option available. Patient does not want any shots, I do not think is a candidate for heparin-therefore Lovenox was also not used. I have asked the social work specialist to see if it is essentially possible to pursue a psychiatric consultation during this hospitalization Source of Hx: Old records Time of Eval: 11:08 Patient Status: Condition improved Re-Evaluation/Progress Note: Discussed EKG results. Time of Eval: 13:08 Patient Status: Condition improved Re-Evaluation/Progress Note: Pt agrees to admission. Consultation : Referral / Consult Name: Tita Schmid MD Consulted With: Hospitalist Call Returned at: 14:10 Real Property Appraiser: Will see patient, Agrees with plan, Accepts admit Differential Diagnosis: Positive: Acute coronary syndrome, Acute myocardial infarct, Dysrhythmia, Negative: Pneumonia, Pneumothorax, Pulmonary embolism Counseled Regarding: Diagnosis, Lab results, Need for follow-up, When/why to return to ED Discharge & Departure Primary Impression: Non-STEMI (non-ST elevated myocardial infarction) Additional Impressions: Elevated troponin Tachyarrhythmia Noncompliance with medication regimen Hyperglycemia COPD (chronic obstructive pulmonary disease) COPD type: unspecified COPD Qualified Code: J44.9 - Chronic obstructive pulmonary disease, unspecified Behavioral disorder Disposition: ADMITTED TO HOSPITAL Discharge Condition All VS Reviewed: Yes Condition: Improved Referrals: Yumiko James MD (PCP) Scribelizabeth Attestation Portions of this note were transcribed by Yanet Zuluaga. I, Dr. Chowdhury personally performed the history, physical exam and medical decision-making; I reviewed and confirmed the accuracy of the information in the transcribed note. Signed by: Raimundo Chen, 06/09/2016 and 1425. copies to: Yumiko James MD, Matthew F MD Sep 06, 2016 10:54 YANET ZULUAGA Sep 06, 2016 11:06
--- NOTE | 2016-09-06 11:17 | DRSVH ---
PROCEDURE: X-RAY CHEST ONE VIEW, PORTABLE ([id number]) INDICATIONS: CP, SOB TECHNIQUE: One view of the chest was acquired. COMPARISON: [facility], CR, XR CHEST 1VW (PORTABLE), 09/04/2016, 5:46. FINDINGS: Surgical changes and devices: None. Lungs and pleura: Mild streaky opacities are present at the lung bases, decreased from the study date d 09/06/16. No pleural effusion or pneumothorax. Mediastinum: Mediastinal contours appear normal. Heart size is normal. Bones and chest wall: No suspicious bony lesions. Overlying soft tissues appear unremarkable. IMPRESSION: Improved aeration at the lung bases when compared with the prior study. Dictated by: Orin Eduardo M.D. on 09/06/2016 at 11:15 Approved by: Orin Eduardo M.D. on 09/06/2016 at 11:16
[2016-09-06 11:38] LABS: BASOPHILS % (AUTO) 0.1 % (0-3); EOSINOPHILS % (AUTO) 0.1 % (0-5); MONOCYTES % (AUTO) 5.8 % (4-12); Mean Corpuscular Volume 88.5 fL (81-100); NEUTROPHILS % (AUTO) 87.7 % (40-74); Platelet Count 168 bil/L (150-400)
[2016-09-06 12:29] LABS: TROPONIN T 0.554 ug/L (0.0-0.011)
[2016-09-06] MEDS ORDERED: Alum-Mag Hydrox-Simeth 30 mL Suspension PO PRN (14:30)
[2016-09-06] MEDS ORDERED: Ondansetron 2 mg/mL 2 mL Inj IVPUSH PRN (14:30)
[2016-09-06] MEDS ORDERED: Diltiazem 5 mg/mL 5 mL Inj IVPUSH PRN (15:40)
[2016-09-06] MEDS ORDERED: Ipratropium 0.02% 0.5 mg/2.5 mL Inhalation Solution NEB SCH (16:00)
--- NOTE | 2016-09-06 16:11 | PCM.HPMED ---
Subjective Date of Service Sep 06, 2016 Primary Provider: Admitting Physician: Tita Schmid MD Primary Care Physician: Yumiko James MD Attending Physician: Tita Schmid MD Chief Complaint: Car broke down and unable to use his nebulizer HISTORY was OBTAINED FROM PATIENT / MEDITECH NOTES History of present illness 66-year-old homeless male well-known to [facility] and hospitalist service usually for shortness of breath/ hyper osmolar diabetes mellitus/noncompliance while hospitalized, has been unable to use his nebulizer and his car, found to be tachycardic 180SVT. Last evaluated on 09/04/16 by cardiology and known to have elevated filling pressures w/ ischemic disease but not a candidate for diagnostic cardiac cath due to belligerence and inability to cooperate w/ further medical testing/care. He was discharged yesterday 09/05 at his request - Belligerent and shouting. Patient using profanities at staff. Patient stated he would rather leave and never come back to the hospital again but rather . In the ER patient actually agreed to diltiazem 15, aspirin, DuoNeb, Tylenol, Zofran, systolic blood pressure 113/78, respiratory rate 30, placed on 3 L nasal cannula Review of Systems - none of the following - F/C/sick contact / wt change/ MARTEL / lightheaded / dizziness / sob / cough / cp / acid reflux / n/v/diarrhea / bleeding/bruising / leg swelling / change in voiding / yeast infections / rash ambulates FAMILY HX not applicable SOCIAL HX former smoker MEDICATIONS Amlodipine (Amlodipine) 5 Mg Tablet 5 MG PO DAILY Aspirin Chew (Aspirin Chew) 81 Mg Chew 81 MG PO DAILY Atorvastatin Calcium (Atorvastatin Calcium) 20 Mg Tablet 20 MG PO HS Beclomethasone Dipropionate (Qvar) 8.7 Gm Aer.w.adap 1 PUFF INHALATION BID Clopidogrel (Clopidogrel) 75 Mg Tablet 75 MG PO DAILY Glipizide (Glipizide) 5 Mg Tablet 5 MG PO BIDAC Insuln Asp Prt/Insulin Aspart (NovoLOG 70/30 U100 Insulin Flexpen) 100 Unit/Ml Unit 12 UNIT SUBQ BID Ketoconazole (Nizoral) 120 Ml Shampoo 120 ML TOP BID Lisinopril (Lisinopril) 5 Mg Tablet 5 MG PO DAILY Metformin (Glucophage) 1,000 Mg Tablet 1,000 MG ORAL BID Metoprolol Tartrate (Metoprolol Tartrate) 75 Mg Tablet 75 MG PO BID Sertraline HCl (Sertraline) 50 Mg Tablet 25 MG PO DAILY Scheduled PRN Albuterol Sulfate (Ventolin HFA Inhaler) 200 Puff/18 Gm Inhaler 1-2 PUFFS INH DIRECTED PRN PRN For Wheezing Benzonatate (Benzonatate) 100 Mg Capsule 100 MG PO TID PRN PRN For Cough Past Medical/Surgical HX 08/2015 Echo-poor definition, but normal LV function, possible diastolic issues Frequent hospital admissions for COPD exacerbations (7 admits in the past 30 days, most recently admitted August 16 to 08/19/2016)(patient on chronic O2 2 -3 L) 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 CAD, Non ST elevation [place], August 2013 Left lower extremity cellulitis Hypertriglyceridemia 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" History of paroxysmal atrial tachycardia Chronic CHF with systolic and diastolic dysfunction, echo August 2013 with an decreased left ventricular ejection fraction History of nonadherence to medical treatment Chronic venous insufficiency cellulitis Hypertension Obesity Exam on admission 2-3L NAD A and O x 3 mood affect WNL NC/AT no icterus no injected eyes EOMI PERRL /no pharyngeal lesions/ no oral lesions / hearing intact Supple neck diminished breath sounds CTAB equal chest rise / no accessory muscle use / speaks in full sentences / no rrw RRR S1 S2 / no mrg / 2+ radial pulses Soft nt nd + BS no hepatosplenomegaly No edema no cyanosis no ecchymosis of lower extremities No rash / no jaundice MCLEAN Usual urinary incontinence odor EKG Trop 0.55 ( baseilne 0.013 - 0.68) BNP 4000 TSH 0.73 UA pending LFT ALT 53 Left shift/normocytic anemia Imaging PROCEDURE: X-RAY CHEST ONE VIEW, PORTABLE ([id number]) INDICATIONS: CP, SOB TECHNIQUE: One view of the chest was acquired. COMPARISON: [facility], CR, XR CHEST 1VW (PORTABLE), 09/04/2016, 5: 46. FINDINGS: Surgical changes and devices: None. Lungs and pleura: Mild streaky opacities are present at the lung bases, decreased from the study dated 09/06/16. No pleural effusion or pneumothorax. Mediastinum: Mediastinal contours appear normal. Heart size is normal. Bones and chest wall: No suspicious bony lesions. Overlying soft tissues appear unremarkable. IMPRESSION: Improved aeration at the lung bases when compared with the prior study. Active issues and reason for admission recurrent paroxysmal SVT-resolved w/ ER's dilt, confounding chronically elevated troponin, ischemic disease w/ lack of compliance to prior [employer]' s recommendations for testing/management. -- DC albuterol, continue ipratropium nebulizers, no more labs -- Status post diltiazem 15 conversion to sinus tach, continue home metoprolol, hold lisinopril -- Monitor magnesium --discussed w/ ER - admission is for new issue --anticipate home w/ nitroglycerine [place] 2 disorder, undiagnosed --Dr Borges - no other recommendations, recommended psych evaluation, ordered on i[facility] and briefly discussed w/ Dr. Coronado. --Likely noncompliance of home medications including plavix/asa/metoprol/ lisinopril/insulin/metformin/glipizide/statin - per family taking some, they did not know about others, ran out of nitro, does not have metoprolol --agreeing to cath, cards to see him tomorrow --simplify medications --he has agreed to cath before then refused Reason for admission --cannot use his nebulizer since his car is not working which is main reason for admission DM --hold insulin - noncompliatn at home, just po antidiabetics --dm diet --noncompliant w/ self insuliln administration chronic back pain limits lying flat give family his current MAR, as they did not know about metoprolol Chronic issues known prior to admission, present on admission 08/2015 Echo-poor definition, but normal LV function, possible diastolic issues Frequent hospital admissions for COPD exacerbations patient on chronic O2 2-3 L) 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 Assessment and plan were discussed with patient family. Allergies Coded Allergies: vancomycin (Verified Allergy, Intermediate, Rash,Itching,, 09/03/16) Per Q: Pt should tolerates vancomycin as long as the rate is slow PMH Social History Hx Alcohol Use: No Hx Substance Use: No Hx Tobacco Use: Yes (quit 9 years ago) Smoking Status: Former Smoker Exam Vital Signs Vital Sign - Last Date Time Temp Pulse Resp B/P Pulse Ox O2 Delivery O2 Flow Rate FiO2 09/06/16 15:39 23 147/87 94 Nasal Cannula 3 09/06/16 14:48 110 09/06/16 10:20 36.5 Lab and Diagnostics Result Diagram: 09/06/16 1132 09/06/16 1132 Tita Schmid MD Sep 06, 2016 16:11
--- NOTE | 2016-09-06 19:47 | NUR ---
Arrived to unit Pt arrived to PCC room 2023 at ~1600 this afternoon. Pt denied pain, A&Ox3. Pt somewhat compliant with care provided: agreeable to heart monitor/VSS. Pt refused SBA to BR/SCDs/removing any clothing/adeola alarm/answering some assessment questions.
[2016-09-06] MEDS ORDERED: Insulin ASPART 70/30 FlexPen 300 Unit/3 mL Inj SUBQ SCH (20:30)
[2016-09-06] MEDS: Albuterol-Ipratropium 3 mL Inhalation Solution NEB SCH (21:32)
[2016-09-06] MEDS: Fluticasone 100 mCg Inhaler INHALATION SCH (21:45)
[2016-09-07] VITALS (12 sets, daily range): BP systolic 101–144; BP diastolic 61–90; PULSE 77–114; RESP 16–24; O2SAT 93–96
[2016-09-07] MEDS ORDERED: KETOCONAZOLE 2% SHAMPOO TOPICAL PRN (01:20)
[2016-09-07] MEDS ORDERED: Nystatin 100,000 Unit/Gm 15 Gm Powder TOPICAL PRN (01:25)
--- NOTE | 2016-09-07 05:17 | NUR ---
Cardiac/resp Patient slept in chair this shift, refused to let RN do full assessment, denied any pain and denied chest pain this shift, no respiratory distress and did well on 3L NC, patient was c/o to family that he didnt have his antifungal shampoo and powder, patient would not informed RN what the medications were for but family updated RN on the situation, patient still refusing IV start but allowed lab to draw AM labs, uneventful shift, will continue to monitor. Addendum: 09/07/16 at 0550 by TAMERA SAHNI RN Amended: Links added.
[2016-09-07] MEDS: Albuterol-Ipratropium 3 mL Inhalation Solution NEB SCH ×4 (06:00→19:29)
[2016-09-07] MEDS: Fluticasone 100 mCg Inhaler INHALATION SCH ×2 (08:08→19:44)
[2016-09-07 08:21] LABS: Mean Corpuscular Hemoglobin 28.6 pg (27.0-35.0); Mean Corpuscular Volume 88.2 fL (81-100)
[2016-09-07] MEDS ORDERED: _Azithromycin 250 mg Tablet PO SCH (08:30)
[2016-09-07] MEDS ORDERED: _PredniSONE 10 mg Tablet PO SCH (08:30)
[2016-09-07 09:12] LABS: TROPONIN T 0.742 ug/L (0.0-0.011)
--- NOTE | 2016-09-07 10:43 | PCM.CHPCAR ---
Consult Subjective Date of service Sep 07, 2016 Date of admit Sep 06, 2016 at 14:51 Provider Requesting Consult Requesting Provider: Collin High MD Primary Care Physician Primary Care Provider: Yumiko James MD Chief Complaint Chest pain/Shortness of breath History of Present Illness This is a 66 y/o male who has history of noncompliance and unfortunately lives in a car for now. Patient has recent history of signing AMA several times over the past 2-3 months here at [facility]. He has evidence for myocardial infarction by troponins and echocardiogram. He was again recently admitted to [facility] this past weekend but after my colleague tried to talk to him, he started to become belligerent and he refused any recommendations made by Dr. Borges. He comes in again with similar complaints. Review of Systems Review of Systems Not able to obtain 12 point review of systems since patient refused to answer my questions. 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 Presumed CAD based on elevated troponins and abnormal LV wall motion Left lower extremity cellulitis Hypertriglyceridemia 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" History of paroxysmal atrial tachycardia/atrial fibrillation Questionable CHF History of nonadherence to medical treatment Chronic venous insufficiency Cellulitis Hypertension Obesity Bedside Blood Glucose: 141 Scheduled Amlodipine (Amlodipine) 5 Mg Tablet 5 MG PO DAILY Aspirin Chew (Aspirin Chew) 81 Mg Chew 81 MG PO DAILY Atorvastatin Calcium (Atorvastatin Calcium) 20 Mg Tablet 20 MG PO HS Azithromycin (Zithromax) 250 Mg Tablet 250 MG PO DAILY Beclomethasone Dipropionate (Qvar) 8.7 Gm Aer.w.adap 1 PUFF INHALATION BID Clopidogrel (Clopidogrel) 75 Mg Tablet 75 MG PO DAILY Glipizide (Glipizide) 5 Mg Tablet 5 MG PO BIDAC Insuln Asp Prt/Insulin Aspart (NovoLOG 70/30 U100 Insulin Flexpen) 100 Unit/Ml Unit 12 UNIT SUBQ BID Ketoconazole (Nizoral) 120 Ml Shampoo 120 ML TOP BID Lisinopril (Lisinopril) 5 Mg Tablet 5 MG PO DAILY Metformin (Glucophage) 1,000 Mg Tablet 1,000 MG ORAL BID (Reported) Metoprolol Tartrate (Metoprolol Tartrate) 75 Mg Tablet 75 MG PO BID (Reported) Prednisone (PredniSONE) 10 Mg Tablet 10 MG PO DAILY take 4 tabs orally for 2 days, 2 tabs for 3 days, 1 tab for 3 days, then 1/2 tab for 4 days Sertraline HCl (Sertraline) 50 Mg Tablet 25 MG PO DAILY Scheduled PRN Albuterol Sulfate (Ventolin HFA Inhaler) 200 Puff/18 Gm Inhaler 1-2 PUFFS INH DIRECTED PRN PRN For Wheezing Benzonatate (Benzonatate) 100 Mg Capsule 100 MG PO TID PRN PRN For Cough Current Inpatient Medications Current Medications Al Hydrox/Mg Hydrox/Simethicone 30 ml Q6 PRN PO; Start 09/06/16 at 14:30; Stop 09/06/16 at 16:14; Status DC Ondansetron HCl Dose range: 4 mg to 8 mg Q4H PRN IVPUSH; Start 09/06/16 at 14: 30; Stop 09/06/16 at 16:14; Status DC Acetaminophen 975 mg Q6H PRN PO; Start 09/06/16 at 14:30 Aspirin 81 mg DAILY PO Last administered on 09/07/16 08:12; Admin Dose 81 MG; Start 09/07/16 at 08:30 Atorvastatin Calcium 20 mg HS PO; Start 09/06/16 at 21:00; Stop 09/06/16 at 21: 00; Status DC Azithromycin 250 mg DAILY PO; Start 09/07/16 at 08:30; Stop 09/07/16 at 08:30; Status DC Fluticasone Propionate 1 puff BID INHALATION Last administered on 09/07/16 08: 08; Admin Dose 1 PUFF; Start 09/06/16 at 20:30 Benzonatate 100 mg TID PRN PO; Start 09/06/16 at 15:35; Stop 09/06/16 at 15:56 ; Status DC Clopidogrel Bisulfate 75 mg DAILY PO Last administered on 09/07/16 08:11; Admin Dose 75 MG; Start 09/07/16 at 08:30 Glipizide 5 mg BIDAC PO Last administered on 09/07/16 08:11; Admin Dose 5 MG; Start 09/06/16 at 16:30 Insulin Aspart Prota 70%/Aspart 30% 12 unit BID SUBQ; Start 09/06/16 at 20:30; Stop 09/06/16 at 20:30; Status DC Ketoconazole 1 applic BID PRN TOPICAL; Start 09/06/16 at 15:35; Stop 09/06/16 at 15:56; Status DC Prednisone 10 mg DAILY PO; Start 09/07/16 at 08:30; Stop 09/07/16 at 08:30; Status DC Sertraline HCl 25 mg DAILY PO; Start 09/07/16 at 08:30; Stop 09/07/16 at 08:30; Status DC Metformin HCl 1,000 mg BIDWM PO Last administered on 09/07/16 08:12; Admin Dose 1,000 MG; Start 09/06/16 at 17:30 Metoprolol Tartrate 75 mg BID PO Last administered on 09/07/16 08:10; Admin Dose 75 MG; Start 09/06/16 at 15:35 Ipratropium [place] 0.5 mg QIDWA NEB; Start 09/06/16 at 16:00; Stop 09/06/16 at 16:49; Status DC Diltiazem HCl 5 mg Q15M PRN IVPUSH; Start 09/06/16 at 15:40 Nitroglycerin 0.4 mg Q5MIN PRN SL; Start 09/06/16 at 15:55 Atorvastatin Calcium 80 mg HS PO; Start 09/07/16 at 21:00 Albuterol/ Ipratropium 3 ml QIDWA NEB Last administered on 09/06/16 21:32; Admin Dose 3 ML; Start 09/06/16 at 21:00 Lisinopril 5 mg DAILY PO Last administered on 09/07/16 08:11; Admin Dose 5 MG; Start 09/07/16 at 08:30 Patient Own Medication 1 applic BID PRN TOPICAL; Start 09/07/16 at 01:20 Nystatin 1 applic BID PRN TOPICAL Last administered on 09/07/16 01:28; Admin Dose 1 APPLIC; Start 09/07/16 at 01:25 Allergies: Coded Allergies: vancomycin (Verified Allergy, Intermediate, Rash,Itching,, 09/03/16) Per Q: Pt should tolerates vancomycin as long as the rate is slow Social History Hx Alcohol Use: NoHx Substance Use: NoHx Tobacco Use: Yes (quit 9 years ago) Smoking Status: Former Smoker Living Arrangement: Homeless Other (lives in a car) Exam Vital Signs Vital Sign - Last Date Time Temp Pulse Resp B/P Pulse Ox O2 Delivery O2 Flow Rate FiO2 09/07/16 08:00 Supplement Oxygen 09/07/16 08:00 36.5 96 16 144/90 96 3.50 Intake and Output 09/06/16 09/06/16 09/07/16 Cumulative From/Thru 15:00 23:00 07:00 09/06/16 10:20 - 09/07/16 05:52 Intake Total 400 ml 400 ml Balance 400 ml 400 ml Intake Oral 400 ml 400 ml # Voids 4 4 Objective I did exam patient since he was belligerent to me as well Lab and Diagnostics Result Diagram: 09/07/16 0810 09/07/16 0810 12-lead ECG Possible atrial fibrillation Normal sinus rhythm without acute ST-T changes and evidence for possible old anteroseptal MO Assessment & Plan Problems: (1) Non-ST elevated myocardial infarction (non-STEMI) Plan: Patient obviously has indications for coronary angiogram but due to his history of being belligerent with providers, including with me, and being noncompliant with his medications, he is NOT a candidate for coronary angiogram at this time. I agree with Dr. Borges that a psychiatry consult should be performed. I believe the oncology social worker is already involved. Patient is clearly putting his life in danger since he does not want to cooperate with providers' recommendations. For now, I would simply continue with his cardiac medications. He has had elevated p-BNP as well and actually his number on his previous admission is the highest one. I have taken the liberty of starting him on IV Lasix 40 mg QD and see if he is willing to take this medication while he is hospitalized and see if his breath improves. He does complain of orthopnea which be suggestive of acute on chronic CHF. If he shows compliancy with his heart medications for at least for a few months then we can reconsider the idea of performing a coronary angiogram. Status: Acute ICD Code: I21.4 (2) COPD (chronic obstructive pulmonary disease) Status: Chronic ICD Code: J44.9 Time spent 60 minutes Jj Kam MD Sep 07, 2016 10:32
--- NOTE | 2016-09-07 10:48 | PCM.PNMED ---
Subjective Date of Service Sep 07, 2016 Subjective Patient denies chest pain or shortness of breath today. He is wondering what is going on. He notes his nebulizer malfunction yesterday but is working now. He denies recent cough or fevers or chills. No pain. Exam Vital Signs Vital Sign - Last Date Time Temp Pulse Resp B/P Pulse Ox O2 Delivery O2 Flow Rate FiO2 09/07/16 08:00 Supplement Oxygen 09/07/16 08:00 36.5 96 16 144/90 96 3.50 Intake and Output 09/06/16 09/06/16 09/07/16 Cumulative From/Thru 15:00 23:00 07:00 09/06/16 10:20 - 09/07/16 05:52 Intake Total 400 ml 400 ml Balance 400 ml 400 ml Intake Oral 400 ml 400 ml # Voids 4 4 Exam He is alert and oriented 3. Erratic behavior. Anicteric sclera Neck supple Lungs are clear with 24 breath sounds. Some expiratory wheezing. No rhonchi. Heart is year without murmur. Abdomen soft. Extremities are free of edema with good radial pulses. IVs and Medications Medications Reviewed: Medications were reviewed in detail Lab and Diagnostics Result Diagram: 09/07/16 0810 09/07/16 0810 Assessment & Plan 1. Chest pain, intermittent. POA. The patient has elevated troponin. He has had a chronic elevated troponin but is slightly higher at this point. He has had some dynamic changes on his ECG over the last week. The patient has been seen by cardiology twice. The concern is that he is not suitable for intervention or stenting because of medication noncompliance and the importance of dual antiplatelets if he were to have a stent. They did discuss with him a trial of medication compliance today to see if he could stick with cardiac meds for 2 or 3 months and then be considered for intervention. 2. COPD with chronic hypoxic respiratory failure. POA. This appears to be relatively stable. No change usual medications. 3. Diabetes mellitus to, with intermittent hyperglycemia. POA. The patient will have his usual medications today and we will follow for hyperglycemia. He again has not a candidate for injectable insulin given his her redness medication noncompliance 4. Repeated medication noncompliance and possible impaired judgment. POA. I requested an MHP evaluation to see if the patient is currently disabled and needs criteria for detainment and psychiatric treatment. Time spent is 30 minutes. Pain Evaluation: Adequate Pain Control Resuscitation Status: CPR: Attempt Resuscitation Time spent 30 minutes Collin High MD Sep 07, 2016 10:48
--- NOTE | 2016-09-07 11:22 | NUR ---
Case Management: JACKIE delivered and explained. Original placed in chart. Pt. refused copy. Joann Chaudhry RN
[2016-09-07] MEDS: Furosemide 10 mg/mL 4 mL Inj IVPUSH SCH (14:41)
--- NOTE | 2016-09-07 17:15 | NUR ---
IV Per welder 2nd shift his IV came out during the night and he outrightly refused to have another one placed. Dr. High was made aware during morning rounds at 1000. Dr. Kam ordered IV Lasix about 1000 or 1100. Notified him about the pt not having IV access due to refusal and asked if he would like the medication given orally. He said to try one more time to convince the patient to allow us to gain IV access so we can give the medication IV allowing it to work faster and make him feel better sooner. If he still refused then the medication could be given orally. Spoke with the patient and after some convincing he agreed to let staff place an IV. IV therapy was called as he has been a difficult stick on previous visits. An IV was placed in his right forearm and the the Lasix was given. Care continues.
--- NOTE | 2016-09-07 17:24 | NUR ---
Social Work Note: Screen Note/Continued Discharge Planning Data& Assessment: EMR reviewed. Vincent High is a 66 year old male under observation for chest pain and NSTEMI. Pt lives in his car in [place] and is independent at baseline. Pt has Medicare insurance coverage and sees Yumiko Rebolledo MD for primary care. Pt receives home o2 through [facility]. JEANETTE spoke to pt CM Yin Suarezsesarkeiran ([phone]), clinicals faxed per her request. Pt Bethel Morris CM is Brianne ) SW left her a voicemail for coordination of care. Pt discussed in morning rounds. MD has concerns about pt mental health influencing his ability to care for himself. Per MD request, JEANETTE contacted [facility] to clarify criteria for DM[facility] detainment for grave disability. [facility] explained that they would have to be gravely disabled due to "extreme psychosis." Therefore, pt does not meet criteria at this time and would not be appropriate for involuntary inpt psych hospitalization. JEANETTE communicated this to . Pt is also a part of a readmission prevention program through the ED, [employer] who has been following pt in the ED has been notified of pt admission. SW to follow up with pt regarding initial assessment. SW to continue to follow. Plan: Anticipated discharge back to his car in the community and follow up with his CM's. JEANETTE to follow up with pt regarding initial assessment. SW to continue to follow. SURESH Currie
--- NOTE | 2016-09-07 18:15 | NUR ---
Blood Glucose, Behavior He had just received his dinner tray and started eating. Went to take his blood sugar and give him some meds. He scowled and in a loud and angry voice said, "Get that away from me! Not while I'm eating. F--k it!" The med and blood glucose was taken away. Care continues. Addendum: 09/08/16 at 0535 by VIRGINIA LOUIS RN Behavior Pt up in chair, allowed RN to do initial VS and pt took due meds at night, calm,appropriate and joking with RN, pt rested on the chair, dozing through the night, outburst with routine vs at midnight and 0400 saying "don't wake me up for that sh...t!" Appear comfortable through the night, w/o signs of distress, IV to SL. pt up to BR to void with 02 on.
[2016-09-08] VITALS (11 sets, daily range): BP systolic 82–118; BP diastolic 50–73; PULSE 94–115; RESP 18–20; O2SAT 93–96
--- NOTE | 2016-09-08 05:36 | NUR ---
Behavior Pt up in chair, allowed RN to do initial VS and pt took due meds at night, calm,appropriate and joking with RN, pt rested on the chair, dozing through the night, outburst with routine vs at midnight and 0400 saying "don't wake me up for that sh...t!" Appear comfortable through the night, w/o signs of distress, IV to SL. pt up to BR to void with 02 on.
[2016-09-08] MEDS: Albuterol-Ipratropium 3 mL Inhalation Solution NEB SCH ×4 (08:32→20:33)
[2016-09-08] MEDS: Furosemide 10 mg/mL 4 mL Inj IVPUSH SCH (09:51)
[2016-09-08] MEDS: Fluticasone 100 mCg Inhaler INHALATION SCH ×2 (09:54→19:39)
[2016-09-08 10:34] LABS: TROPONIN T 0.716 ug/L (0.0-0.011)
--- NOTE | 2016-09-08 12:43 | NUR ---
Social Work Note: Initial Assessment Data& Assessment: EMR reviewed. SW met with pt at bedside to discuss discharge planning, SW role explained. Vincent High is a 66 year old male under observation beginning on 09/06/2016 for chest pain. Pt has Medicare insurance coverage and sees Yumiko Rebolledo MD for primary care. Pt lives in his car with family members and is independent with ADL's at baseline, however, pt does have a hx of noncompliance with medications and medical care. Pt confirmed he is still obtaining his oxygen as scheduled with no issues. Pt explained his CM Brianne "the only one who has ever helped me," is unable to continue following him in the community. When SW asked about pt CM Yin Pope ([phone]), pt explained "she is up on the hill and I don't want anything to do with her." Pt confirmed DC plan of returning to his car which is parked in the [facility] parking lot. Pt declined any other needs at this time. Pt provided with phone number in case any needs arise. SW to continue to follow if any needs arise. Plan: Anticipated discharge back to his car when medically ready. Pt denied any other needs at this time and declined any other assistance for any possible needs. Pt provided with phone number in case any needs arise. SW to continue to follow if any needs arise. SURESH Currie Addendum: 09/08/16 at 1250 by JORDYN VAZQUEZ Amended: Links added.
[2016-09-08] MEDS ORDERED: FUROSEMIDE 10 MG/ML PO SCH (15:35)
--- NOTE | 2016-09-08 15:53 | PCM.PNMED ---
Subjective Date of Service Sep 08, 2016 Subjective He denies any chest pain today or worsening shortness of breath. He does have his chronic orthopnea. Leg edema. He continues to be agitated. Exam Vital Signs Vital Sign - Last Date Time Temp Pulse Resp B/P Pulse Ox O2 Delivery O2 Flow Rate FiO2 09/08/16 14:21 94 96 Nasal Cannula 2.00 09/08/16 12:56 36.6 18 111/73 Intake and Output 09/07/16 09/07/16 09/08/16 Cumulative From/Thru 15:00 23:00 07:00 09/06/16 10:20 - 09/08/16 05:08 Intake Total 636 ml 880 ml 1916 ml Output Total 5 ml 5 ml Balance 631 ml 880 ml 1911 ml Intake Oral 636 ml 860 ml 1896 ml IV Total 20 ml 20 ml Output Urine Total 5 ml 5 ml # Voids 4 8 # Bowel Movements 1 1 Exam Lanoxin 3, and Ongoing erratic behavior or if neck supple. Lungs are no before 34 breath sounds expiratory wheezes on forced expiration heart is regular without murmur Abdomen is soft extremities free of edema to trace edema. IVs and Medications Medications Reviewed: Medications were reviewed in detail Lab and Diagnostics Result Diagram: 09/07/16 0810 09/08/16 0940 Assessment & Plan 1. Chest pain, intermittent. POA. The patient has elevated troponin. He has had a chronic elevated troponin but is slightly higher at this point. He has had some dynamic changes on his ECG over the last week. The patient has been seen by cardiology twice. The concern is that he is not suitable for intervention or stenting because of medication noncompliance and the importance of dual antiplatelets if he were to have a stent. They did discuss with him a trial of medication compliance today to see if he could stick with cardiac meds for 2 or 3 months and then be considered for intervention. Troponin remains elevated. Had a long discussion with cardiology today. And really they feel that a stress test is unlikely to change any of the aforementioned problems of coronary catheterization. In addition there is a risk of a myocardial infarction with stress testing. They feel the patient is too erratic even undergo a procedure may present a danger to himself and/or others during the procedure not to mention the proven difficulties with compliance with medications. They are concerned about possible systolic heart failure and believe that his mortality may be mitigated to a degree with aggressive medical management of possible CAD and treatment of acute probable diastolic heart failure. That being said we will diurese him and continue treating him medically overnight shift for discharge tomorrow with a more aggressive cardiac medication regimen and follow-up. In addition we will should to see if he can follow his compliance for the next 3 months and potentially prove that he is a candidate for more aggressive intervention. 2. COPD with chronic hypoxic respiratory failure. POA. This appears to be relatively stable. No change usual medications. 3. Diabetes mellitus to, with intermittent hyperglycemia. POA. The patient will have his usual medications today and we will follow for hyperglycemia. He again has not a candidate for injectable insulin given his her redness medication noncompliance 4. Repeated medication noncompliance and possible impaired judgment. POA. I requested an MHP evaluation to see if the patient is currently disabled and needs criteria for detainment and psychiatric treatment. Probable discharge on Wednesday. Resuscitation Status: CPR: Attempt Resuscitation Time spent 30 minute Collin High MD Sep 08, 2016 15:53
--- NOTE | 2016-09-08 16:24 | NUR ---
Activity/Shower The ADVICE LINE RN was able to convince him to take a shower. His dirty clothes were washed and returned to him. He seemed to appreciate this and his behavior became more agreeable afterwards. Still cussing, swearing, and having outbursts of anger from time to time, but is doing so less. Care continues.
--- NOTE | 2016-09-08 16:53 | CONS ---
[address] [address] CONSULTATION REPORT PATIENT: JULIA LUNA : 1950 MR#: [id number] ADMIT: 09/06/2016 JOB ID: [id number] DATE OF ADMISSION: 09/06/2016 DATE OF SERVICE: 09/07/2016 IDENTIFICATION: The patient is a 66-year-old homeless male well known to [facility] and the hospitalist services. He has severe coronary artery disease and congestive heart failure. REASON FOR CONSULTATION: Psychiatric evaluation to rule out depression. HISTORY OF PRESENT ILLNESS: I met with the patient for a 30 minute evaluation and reviewed course and records kept by [facility]. He believes he is here to rule out myocardial infarction. He refuses to engage in any part of a psychiatric evaluation. He says "I am not fucking depressed. I do not need a psychiatrist." I was able to engage him in a therapeutic alliance where I circled his symptoms and was able to get a partial history. He consistently denied suicidal ideation, plan, or intent. He did state that he takes his medications as prescribed and was offended by the idea that he may be medication noncompliant. I was able to interview his nephew and his nephew's . They stated that sometimes when he gets hypoxic, he has a poor time with memory and likely is forgetting when he takes his meds. Client refused any type of psychiatric care in terms of therapy or medication. PAST MEDICAL HISTORY: MEDICATIONS: 1. Metoprolol. 2. Metformin. 3. Lisinopril. 4. Ketoconazole. 5. Insulin. 6. NovoLog. 7. Glipizide. 8. Atorvastatin. 9. Aspirin. 10. Amlodipine. PAST MEDICAL HISTORY: Coronary artery disease, hypertension, diabetes, COPD, emphysema, heart disease. ALLERGIES: VANCOMYCIN. FAMILY MEDICAL HISTORY: Client refused. PAST PSYCHIATRIC HISTORY: Client refused. PSYCHOSOCIAL HISTORY: Client refused. MENTAL STATUS: Client disheveled, sitting calmly in bed, moderately overweight. His behavior was initially oppositional, defiant and hostile, however, as I was able to engage him in the interview, he became more relaxed and animated. Towards the end of the evaluation, he was generally cooperative and pleasant. His mood was fine. Affect was intense but congruent. Thought process: Dulce but logical and goal-oriented. He is able to relate a coherent history when he chooses. Thought content: Significantly denied suicidal ideation, plan, or intent. Reports that he is taking his medications as prescribed. Client alert and oriented to person, place, and date. He refused memory, attention, insight or judgment questions. Impulse control highly contained yet rigid. Has a very difficult time handling impulses of fear or anger. Reality testing intact. IMPRESSION: The patient is a 66-year-old male with congestive heart failure, coronary artery disease and is being ruled out for myocardial infarction. He consistently denies symptoms of depression or anxiety and wants no part of psychiatric treatment. 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 [place] IIDeferred. [place] III1. Rule out myocardial infarction. 2. Chronic obstructive pulmonary disease. 3. Diabetes mellitus. 4. Coronary artery disease. 5. Congestive heart failure. [place] IVSevere. [place] VGlobal Assessment of Functioning, current equal to 50. PLAN: Client is declining all psychiatric interventions. I would recommend that his nephew pursue power of assistant prosecuting attorney and purchase a pillbox for the patient. As he has a difficult time breathing and oxygen levels may decrease, it is quite possible that he forgets his medications. They will try to set him up with a regular schedule to try to minimize this. Thank you for an interesting consult. The client was less than cooperative.
[2016-09-09 03:53] VITALS: BP 97/68; PULSE 106; RESP 20; O2SAT 94
--- NOTE | 2016-09-09 06:28 | NUR ---
Refuses Care / Hyperglycemia /No CP/ Hypotension Pts HS blood glucose 309, no insulin ordered, Pt stated that he would not take the insulin anyway. No c/o chest pain, Tele DCd. Pt slightly Hypotensive overnight with SBPs 97-101's.
[2016-09-09 09:02] VITALS: PULSE 95; O2SAT 90
[2016-09-09] MEDS: Albuterol-Ipratropium 3 mL Inhalation Solution NEB SCH (09:02)
--- NOTE | 2016-09-09 10:29 | NUR ---
Case Management: IMM given and explained to pt and nephew at 10:05. Lucy HINTON RN
--- NOTE | 2016-09-09 11:01 | PCM.DIMED ---
Discharge Instructions Date of Service Sep 09, 2016 Dates of Hospitalization Sep 06, 2016 at 14:51 Discharge Diagnosis Discharge Diagnosis 1. NSTEMI 2. COPD 3. Recent pneumonia 4. DM 2 Diet Heart Healthy, Diabetic Activity Limited until seen by PCP Call your provider Shortness of breath, Chest pain Patient Instructions See Dr James within the week. Follow-up Provider: Yumiko James MD Follow-up with PCP in: 1 week Collin High MD Sep 09, 2016 11:01
[2016-09-09] MEDS ORDERED: ISOS30TA4 PO (11:04)
--- NOTE | 2016-09-09 12:26 | NUR ---
Social Work Note: Discharge Data& Assessment: Per pt is medically improved and ready to discharge back to his car/home with family. Vincent High is a 66 year old male admitted on 09/06/2016 for chest pain. Per pt is medically improved and ready to discharge. SW met with pt and pt family at bedside to confirm discharge plan and assess for any unmet needs. Pt denies any other needs. No other discharge needs identified. All updated and agreeable to plan. DC paperwork faxed to pt DANA Pope ). Plan: Per pt is medically improved and ready to discharge back to his car/home with family.Pt denies any other needs. No other discharge needs identified. All updated and agreeable to plan. SURESH Currie
--- NOTE | 2016-09-09 13:09 | NUR ---
Discharge/Behavior This morning about 0800 this nurse went to take his blood sugar, vitals, and give him his AM medicine. He was sleeping in his chair and awoke angrily to tell this nurse to get out and, "Never bother me when I'm sleeping. Get the F--k out!" The nurse left. Throughout the morning he kept telling staff that he wanted to leave right away and to get the Doctor immediately to talk to him. He kept putting his light on and told staff he was going to leave it on until the Doctor came. He became upset with staff whenever they came in to answer the call light. Told them to get out and leave it on. Dr. High spoke to him and wrote discharge paperwork. Took the paperwork into the room to discuss it with him. Took his IV out intact. He refused to discuss any of the paperwork with this nurse saying he just wanted to get out of here. Discussed the paperwork with his nephew's . She had a question about some of his medications. Tried to find Dr. High to clarify her questions, but didn't see him around. Told the family and the patient that this nurse was more than happy to page him for an answer if they were okay with waiting a few more minutes. They said they would go ahead and leave and clarify with the pharmacy. On their way out the patient said, "Thank you for all your help, maggie." The nephew's said, "I guess we'll see you tomorrow," and then chuckled. Addendum: 09/09/16 at 1344 by KATHERINE ZAPIEN RN Discharge time was about 1145. Right before discharge, he was offered his morning medications again. He refused saying, "I'm not going to take them. They're not doing me any good anyway."
--- NOTE | 2016-09-09 13:54 | PCM.DC.MED ---
Discharge Summary Date of Service Sep 09, 2016 Dates of Hospitalization Date of Hospital Admission Sep 06, 2016 at 14:51 Date of Discharge: Sep 09, 2016 Providers: Admitting Physician: Tita Schmid MD Primary Care Physician: Yumiko James MD Attending Physician: Tita Schmid MD Diagnosis at Time of Discharge Diagnosis at Time of Discharge 1. NSTEMI 2. COPD 3. Recent pneumonia 4. DM [address] Kam, cardiology Dr. Peace, psychiatry. Procedures XRay, CTs & MRIs CXR improved aeration of lungs ECG 12 Lead NSR, septal Q waves. No ST changes Brief History This is a 66 y/o male who has history of noncompliance and unfortunately lives in a car for now. Patient has recent history of signing AMA several times over the past 2-[address] [facility]. He has evidence for myocardial infarction by troponins and echocardiogram. He was again recently admitted to [facility] this past weekend but after my colleague tried to talk to him, he started to become belligerent and he refused any recommendations made by Dr. Borges. He comes in again with similar complaints. Hospital Course 1. Chest pain, intermittent. POA. The patient has elevated troponin. He has had a chronic elevated troponin but is slightly higher at this point. He has had some dynamic changes on his ECG over the last week. The patient has been seen by cardiology twice. The concern is that he is not suitable for intervention or stenting because of medication noncompliance and the importance of dual antiplatelets if he were to have a stent. They did discuss with him a trial of medication compliance today to see if he could stick with cardiac meds for 2 or 3 months and then be considered for intervention. Troponin remains elevated. Had a long discussion with cardiology today. And really they feel that a stress test is unlikely to change any of the aforementioned problems of coronary catheterization. In addition there is a risk of a myocardial infarction with stress testing. They feel the patient is too erratic even undergo a procedure may present a danger to himself and/or others during the procedure not to mention the proven difficulties with compliance with medications. They are concerned about possible systolic heart failure and believe that his mortality may be mitigated to a degree with aggressive medical management of possible CAD and treatment of acute probable diastolic heart failure. That being said we will diurese him and continue treating him medically overnight shift for discharge tomorrow with a more aggressive cardiac medication regimen and follow-up. In addition we will should to see if he can follow his compliance for the next 3 months and potentially prove that he is a candidate for more aggressive intervention. 2. COPD with chronic hypoxic respiratory failure. POA. This appears to be relatively stable. No change usual medications. 3. Diabetes mellitus to, with intermittent hyperglycemia. POA. The patient will have his usual medications today and we will follow for hyperglycemia. He again has not a candidate for injectable insulin given his her redness medication noncompliance 4. Repeated medication noncompliance and possible impaired judgment. POA. I requested an MHP evaluation to see if the patient is currently disabled and needs criteria for detainment and psychiatric treatment. Probable discharge on Wednesday. Hospital course. The patient was readmitted to me because of the problem with his equipment in his car. His troponin was more elevated to 0.7 from previous elevations of 0.5. His ECG had no obvious dynamic changes. The patient was seen by cardiology, again. There is a long discussion with the patient and cardiology regarding his ongoing erratic and unpredictable behavior as well as his severe history of medication noncompliance. They feel that he is not a candidate for coronary intervention for several reasons including that he would be unsafe to himself or staff during the procedure with his erratic behavior, and secondly that if he did not require any type of PCI he would be unwilling or unable to reliably take his cardiac medications. We also discussed a stress test to risk stratify him and they felt that if the stress test were abnormal they still would be unable to cath him for the above-mentioned reasons or that he could potentially have a severe adverse outcome during the stress test. In addition they felt were feel that he continues to take his medications on a reliable basis that his mortality outcomes will likely approach those that would occur if he did have intervention. All of this was explained in detail to the patient on the day of discharge as well as to his niece and her significant other. The patient was told in no uncertain terms that his ongoing erratic behavior and unreliability with his medications and follow-up is the only reason for his current medical dilemma. The patient is urged to consider changing his approach and taking his medications on a daily basis. He is assured that we are happy to do we can to help improve his health conditions as long as he is able to do his part. Psychiatry again met with the patient who again declined any mental health intervention. The patient appears competent to make these decisions. Exam Vital Signs (Last) Date Time Temp Pulse Resp B/P Pulse Ox O2 Delivery O2 Flow Rate FiO2 09/09/16 09:02 95 90 Nasal Cannula 4.00 09/09/16 03:53 36.5 20 97/68 Exam Alert and oriented, fluent speech Anicteric sclera Lungs clear CV regular, no murmur Abdomen soft. No edema. Test 09/06/16 11:32 09/06/16 11:47 09/07/16 05:10 09/07/16 08:10 Neutrophils (%) (Auto) 87.7% (40-74) Lymphocytes (%) (Auto) 4.0% (14-46) Monocytes (%) (Auto) 5.8% (4-12) Eosinophils (%) (Auto) 0.1% (0-5) Basophils (%) (Auto) 0.1% (0-3) Thyroid Stimulating Hormone (TSH) 0.732uIU/mL (0.450-4.500) Hold Ramires Top Tube Received (Received) Triglycerides Level 136mg/dL (0-149) Cholesterol Level 159mg/dL (100-199) LDL Cholesterol, Calculated 56.800mg/dL (0-99) VLDL Cholesterol 27.200mg/dL HDL Cholesterol 75mg/dL (>39) Cholesterol/HDL Ratio 2.12 (0.0-4.4) White Blood Count 8.8th/mm3 (3.8-10.1) Red Blood Count 4.58mil/mm3 (4.40-5.80) Hemoglobin 13.1g/dL (13.8-17.2) Hematocrit 40.4% (41.0-50.0) Mean Corpuscular Volume 88.2fL (81-100) Mean Corpuscular Hemoglobin 28.6pg (27.0-35.0) Mean Corpuscular Hemoglobin Concent 32.4% (32.0-37.0) Red Cell Distribution Width 16.1% (12.3-15.4) Platelet Count 181bil/L (150-400) Lactic Acid Level 1.6mmol/L (0.4-2.0) Total Bilirubin 0.5mg/dL (0.0-1.2) Aspartate Amino Transf (AST/SGOT) 11U/L (0-50) Alanine Aminotransferase (ALT/SGPT) 42U/L (0-44) Alkaline Phosphatase 49U/L (25-160) Total Protein 6.0g/dL (6.4-8.4) Albumin 3.7g/dL (3.4-5.0) Procalcitonin 0.07ng/mL (See Comment) Ketones Negative (Negative) Test 09/08/16 09:40 Sodium Level 138mEq/L (134-144) Potassium Level 4.7mEq/L (3.5-5.2) Chloride Level 98mEq/L (97-108) Carbon Dioxide Level 25mmol/L (18-29) Blood Urea Nitrogen 32mg/dL (8-27) Creatinine 0.75mg/dL (0.76-1.27) Estimat Glomerular Filtration Rate 110mL/min (>59) Glucose Level 181mg/dL (60-99) Calcium Level 9.0mg/dL (8.5-10.1) Troponin T 0.716ug/L (0.0-0.011) Discharge Medications Discharge Medications Amlodipine (Amlodipine) 5 Mg Tablet 5 MG PO DAILY Prescribed by: EMILIE IQBAL DO Aspirin Chew (Aspirin Chew) 81 Mg Chew 81 MG PO DAILY Prescribed by: CLEMENT PATTON MD Atorvastatin Calcium (Atorvastatin Calcium) 20 Mg Tablet 20 MG PO HS Prescribed by: CLEMENT PATTON MD Beclomethasone Dipropionate (Qvar) 8.7 Gm Aer.w.adap 1 PUFF INHALATION BID Prescribed by: EMILIE IQBAL DO Clopidogrel (Clopidogrel) 75 Mg Tablet 75 MG PO DAILY Prescribed by: BRIGIDO JAIMES DO Glipizide (Glipizide) 5 Mg Tablet 5 MG PO BIDAC Prescribed by: BRIGIDO JAIMES DO Insuln Asp Prt/Insulin Aspart (NovoLOG 70/30 U100 Insulin Flexpen) 100 Unit/Ml Unit 12 UNIT SUBQ BID Prescribed by: BRIGIDO JAIMES DO Isosorbide MN ER (Isosorbide MN ER) 30 Mg Tab.er.24h 30 MG PO DAILY Prescribed by: COLLIN LUNA MD Ketoconazole (Nizoral) 120 Ml Shampoo 120 ML TOP BID Prescribed by: COLLIN LUNA MD Lisinopril (Lisinopril) 5 Mg Tablet 5 MG PO DAILY Prescribed by: BRIGIDO JAIMES DO Metformin (Glucophage) 1,000 Mg Tablet 1,000 MG ORAL BID (Reported) Metoprolol Tartrate (Metoprolol Tartrate) 75 Mg Tablet 75 MG PO BID (Reported) Sertraline HCl (Sertraline) 50 Mg Tablet 25 MG PO DAILY Prescribed by: EMILIE IQBAL DO As needed Albuterol Sulfate (Ventolin HFA Inhaler) 200 Puff/18 Gm Inhaler 1-2 PUFFS INH DIRECTED PRN PRN For Wheezing Prescribed by: GABRIELLE MAURO DO Benzonatate (Benzonatate) 100 Mg Capsule 100 MG PO TID PRN PRN For Cough Prescribed by: CLEMENT PATTON MD Followup Plan Disposition: Home, with family Discharge Diet: Heart Healthy, Diabetic Discharge Activity: Limited until seen by PCP Patient Instructions See Dr James within the week. Follow-up Provider: Yumiko James MD Follow-up with PCP in: 1 week Time spent 40 minutes Collin Luna MD Sep 09, 2016 13:54
== END 2016-09-09 11:40 | disposition home or self-care (01) | DRG 281 ==
LOC: SED 10:07 → PCC 14:51 → OBSVTOIN 14:51
PROVIDERS: ADMIT Urology; ATTEND Urology
DX: I21.4 Non-ST elevation (NSTEMI) myocardial infarction (principal); J96.11 Chronic respiratory failure with hypoxia; Z91.19 Patient's noncompliance with other medical treatment and regimen; Z79.52 Long term (current) use of systemic steroids; I25.2 Old myocardial infarction; Z87.891 Personal history of nicotine dependence; Z59.0 Homelessness; Z66 Do not resuscitate; J44.9 Chronic obstructive pulmonary disease, unspecified; E11.9 Type 2 diabetes mellitus without complications; R45.1 Restlessness and agitation; F32.89 Other specified depressive episodes; Z87.01 Personal history of pneumonia (recurrent)

== ENCOUNTER 2016-09-19 09:53 | Emergency (ER) | payer MEDICARE ==
[~2016-09-19] VITALS: Ht 170.2 cm; Wt 108.2 kg
[~2016-09-19 09:53] MED LIST changes: +ISOS30TA4 PO; -PRE10 PO; -ZIT250 PO
[2016-09-19 09:56] VITALS: BP 187/106; PULSE 99; RESP 36; O2SAT 90
--- NOTE | 2016-09-19 10:02 | ED.REPORT ---
HPI-General Illness Date of Service Sep 19, 2016 ED Provider: The patient is a 66 year old male with history of frequent hospitalizations for COPD exacerbations, CHF, coronary artery disease, hypertension, hyperlipidemia, and diabetes mellitus, presenting to the emergency department complaining of shortness of breath. He has also noticed chest pain (x 3 days) and wheezing. His chest pain is more severe than previous episodes. His pain is not worse with activity. He reports that he was on 3 L O2 and went through 3 bottles of oxygen yesterday. His last admission was from 09/06-09/09. Nursing Notes Stated Complaint: SHORTNESS OF BREATH Chief Complaint: Respiratory Distress Nursing Notes Reviewed: Yes Allergies: Coded Allergies: vancomycin (Verified Allergy, Intermediate, Rash,Itching,, 09/03/16) Per Q: Pt should tolerates vancomycin as long as the rate is slow Scheduled Amlodipine (Amlodipine) 5 Mg Tablet 5 MG PO DAILY Aspirin Chew (Aspirin Chew) 81 Mg Chew 81 MG PO DAILY Atorvastatin Calcium (Atorvastatin Calcium) 20 Mg Tablet 20 MG PO HS Beclomethasone Dipropionate (Qvar) 8.7 Gm Aer.w.adap 1 PUFF INHALATION BID Clopidogrel (Clopidogrel) 75 Mg Tablet 75 MG PO DAILY Glipizide (Glipizide) 5 Mg Tablet 5 MG PO BIDAC Insuln Asp Prt/Insulin Aspart (NovoLOG 70/30 U100 Insulin Flexpen) 100 Unit/Ml Unit 12 UNIT SUBQ BID Isosorbide MN ER (Isosorbide MN ER) 30 Mg Tab.er.24h 30 MG PO DAILY Ketoconazole (Nizoral) 120 Ml Shampoo 120 ML TOP BID Lisinopril (Lisinopril) 5 Mg Tablet 5 MG PO DAILY Metformin (Glucophage) 1,000 Mg Tablet 1,000 MG ORAL BID Metoprolol Tartrate (Metoprolol Tartrate) 75 Mg Tablet 75 MG PO BID Sertraline HCl (Sertraline) 50 Mg Tablet 25 MG PO DAILY Scheduled PRN Albuterol Sulfate (Ventolin HFA Inhaler) 200 Puff/18 Gm Inhaler 1-2 PUFFS INH DIRECTED PRN PRN For Wheezing Benzonatate (Benzonatate) 100 Mg Capsule 100 MG PO TID PRN PRN For Cough Nitroglycerin SL (Nitroglycerin SL) 0.4 Mg Tab.subl 0.4 MG SL Q5MIN PRN PRN For Chest Pain General Time Seen by MD: 10:01 Chief Complaint Other (shortness of breath) Hx Obtained From: Patient Arrived By: Walk-in Sudden in Onset?: No Onset Occurred: 3 days ago Symptom Duration: Since onset Location: : Chest Quality: Painful Severity: Current: Severe Severity: Maximum: Severe Recent Healthcare: Recent doctor visit, Recent hospitalization Similar Sx Previous: No Past Medical History Past Medical History Notes: PCP: Dr. 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" Multiple visits of COPD with exacerbation (patient on chronic O2 2-3 L) History of paroxysmal atrial tachycardia Chronic CHF with systolic and diastolic dysfunction, echo August 2013 with an decreased left ventricular ejection fraction History of nonadherence to medical treatment Chronic venous insufficiency Hx cellulitis Reports: COPD, Congestive heart failure, Diabetes mellitus, Hyperlipidemia, Hypertension Reports: Obesity Past Surgical History None Family History Reports: Diabetes mellitus Smoking History Former Smoker Social History Patient is currently living in his car Alcohol Use: Denies alcohol use Drug Use: Denies drug use Other Social History: Poor social support, Frequent ED visitor, Homeless 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 Physical Exam Vital Signs Vital Signs Date Time Temp Pulse Resp B/P Pulse Ox O2 Delivery O2 Flow Rate FiO2 09/19/16 12:57 79 21 106/62 96 Nasal Cannula 3 09/19/16 11:25 86 24 112/71 91 Nasal Cannula 3 09/19/16 11:08 100 122/85 93 Nasal Cannula 3 09/19/16 10:32 110 26 89 Room Air 09/19/16 10:16 96 97 Nasal Cannula 3 09/19/16 09:56 36.8 99 36 187/106 90 Initial VS: Reviewed Head / Eyes: Atraumatic, Normocephalic, PERRL ENT: Mucous membranes moist, Conjunctiva normal, No scleral icterus Neck: Supple, Non-tender, Full range of motion Abdomen / GI: Soft, Non-tender, No guarding, No rebound, No distention Lymphatic: No lymphadenopathy Extremities: Vascular intact, Neuro intact, No swelling, No tenderness Skin: Warm, Dry, No cyanosis Neurologic: Alert, Oriented, Nonfocal Psychiatric: Mood/affect normal, Behavior normal, Normal thought content General/Constitutional: Awake, Alert, Cooperative Distress / Hydration: Positive: Distress mild Smells of urine Respiratory / Chest: No respiratory distress Diminished Breath Sounds: Positive: Decreased bilateral Cardiovascular: Heart rate NL, Regular rhythm, Heart sounds NL, No murmurs, No rubs, Cap refill not delayed, Peripheral circulation NL Interpretation & Diagnostics Lab Results Interpretation Result Diagram: 09/19/16 1055 09/19/16 1055 Test 09/19/16 10:30 09/19/16 10:55 Hold Urine Received (Received) White Blood Count 5.8th/mm3 (3.8-10.1) Red Blood Count 4.71mil/mm3 (4.40-5.80) Hemoglobin 13.8g/dL (13.8-17.2) Hematocrit 42.2% (41.0-50.0) Mean Corpuscular Volume 89.6fL (81-100) Mean Corpuscular Hemoglobin 29.3pg (27.0-35.0) Mean Corpuscular Hemoglobin Concent 32.7% (32.0-37.0) Red Cell Distribution Width 15.9% (12.3-15.4) Platelet Count 255bil/L (150-400) Neutrophils (%) (Auto) 65.0% (40-74) Lymphocytes (%) (Auto) 17.0% (14-46) Monocytes (%) (Auto) 10.2% (4-12) Eosinophils (%) (Auto) 4.5% (0-5) Basophils (%) (Auto) 0.9% (0-3) Sodium Level 140mEq/L (134-144) Potassium Level 4.1mEq/L (3.5-5.2) Chloride Level 104mEq/L (97-108) Carbon Dioxide Level 23mmol/L (18-29) Blood Urea Nitrogen 11mg/dL (8-27) Creatinine 0.66mg/dL (0.76-1.27) Estimat Glomerular Filtration Rate 128mL/min (>59) Glucose Level 283mg/dL (60-99) Calcium Level 9.0mg/dL (8.5-10.1) Magnesium Level 1.7mg/dL (1.6-2.6) Total Bilirubin 0.4mg/dL (0.0-1.2) Aspartate Amino Transf (AST/SGOT) 11U/L (0-50) Alanine Aminotransferase (ALT/SGPT) 18U/L (0-44) Alkaline Phosphatase 56U/L (25-160) Total Creatine Kinase 65U/L (21-232) Creatine Kinase MB 3.7ng/mL (0.0-10.4) Creatine Kinase MB % % (0.0-5.0) Troponin T 0.010ug/L (0.0-0.011) Pro-B-Type Natriuretic Peptide 952.2pg/mL (0-376) Total Protein 6.7g/dL (6.4-8.4) Albumin 4.0g/dL (3.4-5.0) Hold Ramires Top Tube Received (Received) ECG Interpretation ECG Interpretation: Sinus rhythm with a rate of 98 Time: 10:41 Interpreted by: ED physician X-Ray Chest Interpretation Chest Xray Interpretation: IMPRESSION: No acute cardiopulmonary disease process. Dictated by: Macarena Oliver MD, PhD on 09/19/2016 at 10:40 Interpretation / Wet Read by: Interpret - Radiologist Re-Eval/Medical Decision Med Decision/Clinical Course Essentially this patient arrives with shortness of breath and chest pain, received his regular home medicine +1 DuoNeb and 1 sublingual nitroglycerin with improvement of symptoms. After 3 days of ongoing symptoms and a negative troponin and it does not seem that this is a non-ST elevation CT. Patient will be discharged. On questioning it sounds that he has been compliant with medication. His laboratory values likely suggest this as well. He is agreeable to discharge home. Will be prescribed sublingual nitroglycerin for home use under the recommendation that if he needs more than one of these he should return to the ER. Return and follow-up precautions given Source of Hx: Old records Time of Eval: 11:05 Re-Evaluation/Progress Note: His pain has improved and is only "mild" at this time. Time of Eval: 11:29 Re-Evaluation/Progress Note: The patient is feeling better and would like lunch. Time of Eval: 11:53 Re-Evaluation/Progress Note: Rechecked the patient. Discussed results, diagnosis, and plan for discharge after his lunch arrives. All questions were addressed. Counseled Regarding: Diagnosis, Lab results, Need for follow-up, When/why to return to ED Discharge & Departure Primary Impression: Stable angina Additional Impression: Chronic obstructive pulmonary disease (COPD) COPD type: unspecified COPD Qualified Code: J44.9 - Chronic obstructive pulmonary disease, unspecified Disposition: Home Discharge Condition All VS Reviewed: Yes Condition: Stable Additional Instructions: Thank you for entrusting us with your care today. Your test results today are reassuring. Take your normal medications and use your inhalers as prescribed. Use nitroglycerin as prescribed for your chest pain. Return to the emergency department for recurrent chest pain that is not resolved after a nitroglycerin, any new or concerning symptoms. Referrals: Yumiko James MD (PCP) Scribe Attestation Portions of this note were transcribed by Silvia Barrios. I, Dr. Alberts personally performed the history, physical exam and medical decision-making; I reviewed and confirmed the accuracy of the information in the transcribed note. Signed by: Raimundo Vargas, 09/18/2016 at 1210. copies to: Yumiko James MD, Timothy S DO Sep 19, 2016 10:02 Silvia Barrios Sep 19, 2016 10:06
[2016-09-19 10:16] VITALS: PULSE 96; O2SAT 97
[2016-09-19] MEDS ORDERED: Nitroglycerin 2% 1 Gm Ointment TOPICAL ONE (10:25)
[2016-09-19] MEDS ORDERED: Albuterol-Ipratropium 3 mL Inhalation Solution NEB ONE (10:25)
[2016-09-19] MEDS ORDERED: Ondansetron 2 mg/mL 2 mL Inj IVPUSH ONE (10:25)
[2016-09-19] MEDS ORDERED: Isosorbide Mononitrate 30 mg ER24 Tablet PO ONE (10:30)
[2016-09-19 10:32] VITALS: PULSE 110; RESP 26; O2SAT 89
[2016-09-19 11:08] VITALS: BP 122/85; PULSE 100; O2SAT 93
[2016-09-19 11:10] LABS: BASOPHILS % (AUTO) 0.9 % (0-3); EOSINOPHILS % (AUTO) 4.5 % (0-5); MONOCYTES % (AUTO) 10.2 % (4-12); Mean Corpuscular Hemoglobin 29.3 pg (27.0-35.0); Mean Corpuscular Volume 89.6 fL (81-100); Platelet Count 255 bil/L (150-400)
--- NOTE | 2016-09-19 11:15 | DRSVH ---
PROCEDURE: X-RAY CHEST, TWO VIEWS ([id number]) INDICATIONS: chest pain SOB TECHNIQUE: 2 views of the chest were acquired. COMPARISON: [facility], CR, XR CHEST 1VW (PORTABLE), 09/06/2016, 10:57. FINDINGS: Surgical changes and devices: None. Lungs and pleura: No pleural effusions or pneumothorax. Lungs are clear. Mediastinum: Mediastinal contours are normal. Heart size is normal. Bones and chest wall: No suspicious bony abnormalities. Soft tissues appear unremarkable. IMPRESSION: No acute cardiopulmonary disease process. Dictated by: Macarena Oliver MD, PhD on 09/19/2016 at 11:12 Approved by: Macarena Oliver MD, PhD on 09/19/2016 at 11:13
[2016-09-19 11:25] VITALS: BP 112/71; PULSE 86; RESP 24; O2SAT 91
[2016-09-19 11:47] LABS: Creatine Kinase 65 U/L (21-232); Magnesium 1.7 mg/dL (1.6-2.6)
[2016-09-19] MEDS ORDERED: NITR0.4T6 SL (12:02)
[2016-09-19 12:57] VITALS: BP 106/62; PULSE 79; RESP 21; O2SAT 96
== END 2016-09-19 12:55 | disposition home or self-care (01) ==
LOC: SED 09:53
DX: I20.8 Other forms of angina pectoris (principal); J44.9 Chronic obstructive pulmonary disease, unspecified; I11.0 Hypertensive heart disease with heart failure; I50.42 Chronic combined systolic (congestive) and diastolic (congestive) heart failure; E11.9 Type 2 diabetes mellitus without complications; I25.10 Atherosclerotic heart disease of native coronary artery without angina pectoris; Z87.891 Personal history of nicotine dependence; Z79.82 Long term (current) use of aspirin; Z79.84 Long term (current) use of oral hypoglycemic drugs; Z79.4 Long term (current) use of insulin; Z88.1 Allergy status to other antibiotic agents
CPT/HCPCS: 36415; 71020; 80053; 82550; 82553; 83735; 83880; 84484; 85025; 93005; 94664; 99285; J7620

== ENCOUNTER 2016-09-19 18:42 | Emergency (ER) | payer MEDICARE ==
[~2016-09-19 18:42] MED LIST changes: +NITR0.4T6 SL
[2016-09-19 18:55] VITALS: BP 95/63; PULSE 96; RESP 20; O2SAT 88
--- NOTE | 2016-09-19 19:58 | ED.REPORT ---
HPI-Dyspnea / Wheezing Date of Service Sep 19, 2016 ED Provider: Roni Whitt Patient is a 66 year old male with a history of frequent ED visits who presents to the ED complaining of SOB onset 3 hours ago. Associated symptoms include chills. He denies chest pain, nausea, abdominal pain, diaphoresis, fever, or any other symptoms. He claims that he uses his inhaler "all the time". Nursing Notes Stated Complaint: DIZZINESS,FAINTING Chief Complaint: Respiratory Complaints Nursing Notes Reviewed: Yes Allergies: Coded Allergies: vancomycin (Verified Allergy, Intermediate, Rash,Itching,, 09/03/16) Per Q: Pt should tolerates vancomycin as long as the rate is slow Scheduled Amlodipine (Amlodipine) 5 Mg Tablet 5 MG PO DAILY Aspirin Chew (Aspirin Chew) 81 Mg Chew 81 MG PO DAILY Atorvastatin Calcium (Atorvastatin Calcium) 20 Mg Tablet 20 MG PO HS Beclomethasone Dipropionate (Qvar) 8.7 Gm Aer.w.adap 1 PUFF INHALATION BID Clopidogrel (Clopidogrel) 75 Mg Tablet 75 MG PO DAILY Glipizide (Glipizide) 5 Mg Tablet 5 MG PO BIDAC Insuln Asp Prt/Insulin Aspart (NovoLOG 70/30 U100 Insulin Flexpen) 100 Unit/Ml Unit 12 UNIT SUBQ BID Isosorbide MN ER (Isosorbide MN ER) 30 Mg Tab.er.24h 30 MG PO DAILY Ketoconazole (Nizoral) 120 Ml Shampoo 120 ML TOP BID Lisinopril (Lisinopril) 5 Mg Tablet 5 MG PO DAILY Metformin (Glucophage) 1,000 Mg Tablet 1,000 MG ORAL BID Metoprolol Tartrate (Metoprolol Tartrate) 75 Mg Tablet 75 MG PO BID Sertraline HCl (Sertraline) 50 Mg Tablet 25 MG PO DAILY Scheduled PRN Albuterol Sulfate (Ventolin HFA Inhaler) 200 Puff/18 Gm Inhaler 1-2 PUFFS INH DIRECTED PRN PRN For Wheezing Benzonatate (Benzonatate) 100 Mg Capsule 100 MG PO TID PRN PRN For Cough Nitroglycerin SL (Nitroglycerin SL) 0.4 Mg Tab.subl 0.4 MG SL Q5MIN PRN PRN For Chest Pain General Time Seen by MD: 19:57 Chief Complaint Shortness of breath Hx Obtained From: Patient Arrived By: Walk-in Sudden in Onset?: Yes Onset Occurred: 1 - 4 hours ago Symptom Duration: Since onset Recent Healthcare: Recent doctor visit Similar Sx Previous: Yes Past Medical History Past Medical History Notes: PCP: Dr. 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, echo August 2013 with an decreased left ventricular ejection fraction History of nonadherence to medical treatment Chronic venous insufficiency Hx cellulitis Reports: COPD, Congestive heart failure, Diabetes mellitus, Hyperlipidemia, Hypertension Reports: Obesity Past Surgical History None Family History Reports: Diabetes mellitus Smoking History Former Smoker Social History Patient is currently living in his car Alcohol Use: Denies alcohol use Drug Use: Denies drug use Other Social History: Poor social support, Frequent ED visitor, Homeless 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 GI: Denies: Abdominal pain, Nausea Physical Exam Initial Vital Signs Vital Signs (First) Date Time Temp Pulse Resp B/P Pulse Ox O2 Delivery O2 Flow Rate FiO2 09/19/16 18:55 36.0 96 20 95/63 88 Room Air Head / Eyes: Atraumatic, Normocephalic Skin: Warm, Dry Neurologic: Alert, Oriented, Nonfocal Psychiatric: Mood/affect normal, Behavior normal, Normal thought content General/Constitutional: Awake, Alert, No acute distress, Well developed Neck: Atraumatic Wheezing / Retractions: Positive: Wheezing expiratory Poor air movement Cardiovascular: Heart rate NL, Regular rhythm Distant heart tones Interpretation & Diagnostics Lab Results Interpretation Result Diagram: 09/19/16204909/19/162049 Test 09/19/16 20:50 White Blood Count 8.0th/mm3 (3.8-10.1) Red Blood Count 4.45mil/mm3 (4.40-5.80) Hemoglobin 12.9g/dL (13.8-17.2) Hematocrit 39.8% (41.0-50.0) Mean Corpuscular Volume 89.4fL (81-100) Mean Corpuscular Hemoglobin 29.0pg (27.0-35.0) Mean Corpuscular Hemoglobin Concent 32.4% (32.0-37.0) Red Cell Distribution Width 15.8% (12.3-15.4) Platelet Count 275bil/L (150-400) Neutrophils (%) (Auto) 70.0% (40-74) Lymphocytes (%) (Auto) 15.1% (14-46) Monocytes (%) (Auto) 8.8% (4-12) Eosinophils (%) (Auto) 4.0% (0-5) Basophils (%) (Auto) 0.5% (0-3) Sodium Level 139mEq/L (134-144) Potassium Level 4.0mEq/L (3.5-5.2) Chloride Level 104mEq/L (97-108) Carbon Dioxide Level 23mmol/L (18-29) Blood Urea Nitrogen 15mg/dL (8-27) Creatinine 0.74mg/dL (0.76-1.27) Estimat Glomerular Filtration Rate 112mL/min (>59) Glucose Level 260mg/dL (60-99) Calcium Level 9.0mg/dL (8.5-10.1) Magnesium Level 1.6mg/dL (1.6-2.6) Total Bilirubin 0.4mg/dL (0.0-1.2) Aspartate Amino Transf (AST/SGOT) 15U/L (0-50) Alanine Aminotransferase (ALT/SGPT) 19U/L (0-44) Alkaline Phosphatase 53U/L (25-160) Troponin T 0.010ug/L (0.0-0.011) Pro-B-Type Natriuretic Peptide 1043pg/mL (0-376) Total Protein 6.4g/dL (6.4-8.4) Albumin 3.6g/dL (3.4-5.0) Hold [place] Top Tube Received (Received) ECG Interpretation ECG Interpretation: Sinus rate 97 Time: 20:20 Interpreted by: ED physician X-Ray Chest Interpretation Chest Xray Interpretation: IMPRESSION: No acute cardiopulmonary disease process. Dictated by: Macarena Oliver MD, PhD on 09/19/2016 at 20:38 Approved by: Macarena Oliver MD, PhD on 09/19/2016 at 20:39 View: Portable, 1 view Interpretation / Wet Read by: Interpret - Radiologist Re-Eval/Medical Decision Med Decision/Clinical Course 66-year-old male with significant respiratory disease and coronary disease. Unfortunately he also has a habit of inappropriate utilization for the emergency department for nonacute conditions. Is complaining of shortness of breath today feels better after a single nebulized DuoNeb. Labs ECG and chest x-ray are reassuring. The patient states he would like to be admitted because he "does not have a ride". Explained that he would not be hospitalized without acute medical indication. Patient discharged in good condition and on discharge was advised to continue his previous medications and to use them as prescribed. Re-Evaluation/Progress : Time of Eval: 22:51 )( Re-Eval Resp / Chest: No respiratory distress Re-Evaluation/Progress Note: Discussed plan for discharge. Patient is attempting to stay in the hospital. Counseled Regarding: Diagnosis, Lab results, Need for follow-up, When/why to return to ED Discharge & Departure Impression: Primary Impression: COPD (chronic obstructive pulmonary disease) COPD type: unspecified COPD Qualified Code: J44.9 - Chronic obstructive pulmonary disease, unspecified Disposition: Home Discharge Condition All VS Reviewed: Yes Condition: Improved Additional Instructions: No serious acute medical problems identified today. Previous home medications follow-up with primary care soon. Referrals: Yumiko James MD (PCP) Scribe Attestation Portions of this note were transcribed by David Velasquez. I, Dr. Whitt personally performed the history, physical exam and medical decision-making; I reviewed and confirmed the accuracy of the information in the transcribed note. Signed by: David Velasquez 09/19/16, [id number] copies to: Yumiko James MD, Donald L MD Sep 19, 2016 19:58 DAVID VELASQUEZ Sep 19, 2016 20:08
[2016-09-19] MEDS ORDERED: Albuterol-Ipratropium 3 mL Inhalation Solution NEB ONE (20:05)
[2016-09-19 20:10] VITALS: PULSE 78; RESP 18; O2SAT 96
--- NOTE | 2016-09-19 20:40 | DRSVH ---
PROCEDURE: X-RAY CHEST ONE VIEW, PORTABLE ([id number]) INDICATIONS: dyspnea TECHNIQUE: One view of the chest was acquired. COMPARISON: [facility], CR, XR CHEST 1VW (PORTABLE), 09/06/2016, 10:57. [facility], CR, XR CHEST 2VW, 09/19/2016, 11:00. FINDINGS: Surgical changes and devices: None. Lungs and pleura: No pleural effusions or pneumothorax. Lungs are clear. Mediastinum: Mediastinal contours appear normal. Heart size is normal. Bones and chest wall: No suspicious bony lesions. Overlying soft tissues appear unremarkable. IMPRESSION: No acute cardiopulmonary disease process. Dictated by: Macarena Oliver MD, PhD on 09/19/2016 at 20:38 Approved by: Macarena Oliver MD, PhD on 09/19/2016 at 20:39
[2016-09-19 21:11] LABS: BASOPHILS % (AUTO) 0.5 % (0-3); MONOCYTES % (AUTO) 8.8 % (4-12); Mean Corpuscular Volume 89.4 fL (81-100); Platelet Count 275 bil/L (150-400)
[2016-09-19 22:00] LABS: TROPONIN T 0.01 ug/L (0.0-0.011)
[2016-09-19 22:11] LABS: Magnesium 1.6 mg/dL (1.6-2.6)
== END 2016-09-19 23:29 | disposition home or self-care (01) ==
LOC: SED 18:42
DX: J44.9 Chronic obstructive pulmonary disease, unspecified (principal); I11.0 Hypertensive heart disease with heart failure; E11.59 Type 2 diabetes mellitus with other circulatory complications; I50.9 Heart failure, unspecified; I25.2 Old myocardial infarction; I25.10 Atherosclerotic heart disease of native coronary artery without angina pectoris; E78.5 Hyperlipidemia, unspecified; Z79.82 Long term (current) use of aspirin; Z79.4 Long term (current) use of insulin; Z79.84 Long term (current) use of oral hypoglycemic drugs; Z87.891 Personal history of nicotine dependence; Z88.1 Allergy status to other antibiotic agents
CPT/HCPCS: 36415; 71010; 80053; 83735; 83880; 84484; 85025; 93005; 94664; 99285; J7620

== ENCOUNTER 2016-09-22 12:34 | Emergency (ER) | payer MEDICARE ==
[~2016-09-22] VITALS: Ht 170.2 cm; Wt 108.2 kg
[2016-09-22 13:26] VITALS: BP 134/89; PULSE 103; RESP 22; O2SAT 89
[2016-09-22] MEDS ORDERED: Albuterol-Ipratropium 3 mL Inhalation Solution ONE (14:11)
--- NOTE | 2016-09-22 15:09 | ED.REPORT ---
HPI-Dyspnea / Wheezing Date of Service Sep 22, 2016 ED Provider: Bk Richardson MD Pt is a 66 y/o male w/ a hx significant for persistent medication noncompliance , asthma, COPD, CHF, CAD, diabetes, HTN, hyperlipidemia, presenting to the ED c/ o SOB onset about 2 hours prior to arrival. He believes his nebulizer may not have been working very well. The patient had a breathing treatment prior to interview and his symptoms have mildly relieved but he believes he has not returned to baseline. He is still living in his truck and uses his car battery to power his nebulizer. He c/o associated increased dyspnea on even mild exertion, chills. He denies fever, productive cough, chest pain. The patient is seen extremely frequently in the ED for dyspnea and often refuses treatment and is abusive to staff. Nursing Notes Stated Complaint: SOB Chief Complaint: Respiratory Distress Nursing Notes Reviewed: Yes Allergies: Coded Allergies: vancomycin (Verified Allergy, Intermediate, Rash,Itching,, 09/03/16) Per Q: Pt should tolerates vancomycin as long as the rate is slow Scheduled Amlodipine (Amlodipine) 5 Mg Tablet 5 MG PO DAILY Aspirin Chew (Aspirin Chew) 81 Mg Chew 81 MG PO DAILY Atorvastatin Calcium (Atorvastatin Calcium) 20 Mg Tablet 20 MG PO HS Beclomethasone Dipropionate (Qvar) 8.7 Gm Aer.w.adap 1 PUFF INHALATION BID Clopidogrel (Clopidogrel) 75 Mg Tablet 75 MG PO DAILY Glipizide (Glipizide) 5 Mg Tablet 5 MG PO BIDAC Insuln Asp Prt/Insulin Aspart (NovoLOG 70/30 U100 Insulin Flexpen) 100 Unit/Ml Unit 12 UNIT SUBQ BID Isosorbide MN ER (Isosorbide MN ER) 30 Mg Tab.er.24h 30 MG PO DAILY Ketoconazole (Nizoral) 120 Ml Shampoo 120 ML TOP BID Lisinopril (Lisinopril) 5 Mg Tablet 5 MG PO DAILY Metformin (Glucophage) 1,000 Mg Tablet 1,000 MG ORAL BID Metoprolol Tartrate (Metoprolol Tartrate) 75 Mg Tablet 75 MG PO BID Sertraline HCl (Sertraline) 50 Mg Tablet 25 MG PO DAILY Scheduled PRN Albuterol Sulfate (Ventolin HFA Inhaler) 200 Puff/18 Gm Inhaler 1-2 PUFFS INH DIRECTED PRN PRN For Wheezing Benzonatate (Benzonatate) 100 Mg Capsule 100 MG PO TID PRN PRN For Cough Nitroglycerin SL (Nitroglycerin SL) 0.4 Mg Tab.subl 0.4 MG SL Q5MIN PRN PRN For Chest Pain General Time Seen by MD: 15:08 Chief Complaint Shortness of breath Hx Obtained From: Patient Arrived By: Wheelchair Sudden in Onset?: No Onset Occurred: 1 - 4 hours ago Symptom Duration: Since onset Severity: Current: No pain currently Severity: Maximum: No pain Recent Healthcare: Recent doctor visit, Recent hospitalization, Recent testing , Previous diagnosis, Prior workup Similar Sx Previous: Yes Past Medical History Past Medical History Notes: PCP: Dr. James Frequent hospital admissions for COPD exacerbations Often refuses treatment and is abusive to staff Past Medical History CAD, Non ST elevation [place], August 2013 Left lower extremity cellulitis Hypertriglyceridemia 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" Multiple visits of COPD with exacerbation (patient on chronic O2 2-3 L) History of paroxysmal atrial tachycardia Chronic CHF with systolic and diastolic dysfunction, echo August 2013 with an decreased left ventricular ejection fraction History of nonadherence to medical treatment Chronic venous insufficiency Hx cellulitis Reports: COPD, Congestive heart failure, Diabetes mellitus, Hyperlipidemia, Hypertension Reports: Obesity Past Surgical History None Family History Reports: Diabetes mellitus Smoking History Former Smoker Social History Patient is currently living in his car Alcohol Use: Denies alcohol use Drug Use: Denies drug use Other Social History: Poor social support, Frequent ED visitor, Homeless 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 Physical Exam Initial Vital Signs Vital Signs (First) Date Time Temp Pulse Resp B/P Pulse Ox O2 Delivery O2 Flow Rate FiO2 09/22/16 13:26 36.1 103 22 134/89 89 Room Air Initial VS: Reviewed, Vital signs abnormal Head / Eyes: Atraumatic, Normocephalic, PERRL ENT: Mucous membranes moist, Conjunctiva normal, No scleral icterus Skin: Warm, Dry, No cyanosis Neurologic: Alert, Oriented, Nonfocal Psychiatric: Mood/affect normal, Behavior normal, Normal thought content General/Constitutional: Awake, Alert, No acute distress, Cooperative, Not toxic appearing Neck: Atraumatic, Supple, No meningismus, Full range of motion Respiratory / Chest: Atraumatic, No rales, No rhonchi, No retractions, No stridor, No chest tenderness, No chest wall deformity, No crepitus The patient becomes very short of breath with only the exertion used to take one arm out of his jacket Diminished lungs sounds right base Poor air movement throughout Cardiovascular: Regular rhythm, Heart sounds NL, No gallop, No murmurs, No rubs , Cap refill not delayed, Peripheral circulation NL Heart Rate / Rhythm: Positive: Tachycardia (mild) Distand heart sounds Re-Eval/Medical Decision Source of Hx: Old records, Family Re-Evaluation/Progress : Time of Eval: 18:11 Re-Evaluation/Progress Note: He is in no respiratory distress, smiling and joking with me complaining about his food being cold. He says he does not want to go home because he still too breathless. He does not appear very breathless and I do not think it is reasonable to admit him at this time He is very mad at me. He says is going to [employer]. He can speak in full sentences. Oxygen level on room air is in the low 90%'s Counseled Regarding: Diagnosis, Need for follow-up, When/why to return to ED Discharge & Departure Impression: Primary Impression: Respiratory distress Disposition: Home Discharge Condition All VS Reviewed: Yes Condition: Stable Additional Instructions: No new dangerous cause for your breathlessness is discovered. Your oxygen level is adequate and your laboratory data recently is reassuring. Your lung examination is no different than it has been. Your symptoms have somewhat improved with the treatments you have received. Your machine will be replaced tomorrow. If your breathlessness is intolerable, please return for further evaluation. Referrals: Yumiko James MD (PCP) Anushaibe Attestation Portions of this note were transcribed by Ramakrishna Clay. I, Dr. Richardson personally performed the history, physical exam and medical decision-making; I reviewed and confirmed the accuracy of the information in the transcribed note. Signed by Raimundo Lombardi, 09/22/16 - [id number] copies to: Yumiko James MD, Kirk H MD Sep 22, 2016 15:09 RAMAKRISHNA CLAY Sep 22, 2016 15:17
[2016-09-22] MEDS ORDERED: Albuterol 2.5 mg/3 mL Inhalation Solution NEB ONE (15:45)
[2016-09-22 16:01] VITALS: PULSE 100; RESP 20; O2SAT 89
== END 2016-09-22 18:23 | disposition home or self-care (01) ==
LOC: SED 12:34
DX: R06.02 Shortness of breath (principal); J45.909 Unspecified asthma, uncomplicated; J44.9 Chronic obstructive pulmonary disease, unspecified; I50.42 Chronic combined systolic (congestive) and diastolic (congestive) heart failure; I25.10 Atherosclerotic heart disease of native coronary artery without angina pectoris; E11.9 Type 2 diabetes mellitus without complications; I10 Essential (primary) hypertension; E78.5 Hyperlipidemia, unspecified; E66.9 Obesity, unspecified; Z91.14 Patient's other noncompliance with medication regimen; Z87.891 Personal history of nicotine dependence; Z59.0 Homelessness; Z68.37 Body mass index [BMI] 37.0-37.9, adult; Z79.82 Long term (current) use of aspirin; Z79.4 Long term (current) use of insulin; Z79.84 Long term (current) use of oral hypoglycemic drugs; Z88.1 Allergy status to other antibiotic agents
CPT/HCPCS: 94644; 99284; J7613; J7620

== ENCOUNTER 2016-09-23 15:49 | Emergency (ER) | payer MEDICARE ==
[~2016-09-23] VITALS: Ht 170.2 cm; Wt 108.2 kg
[2016-09-23 15:55] VITALS: BP 168/94; PULSE 109; RESP 24; O2SAT 87
--- NOTE | 2016-09-23 17:13 | ED.REPORT ---
HPI-General Illness Date of Service Sep 23, 2016 ED Provider: Christiano Stern MD 66 year old male with a history of multiple visits of COPD with exacerbation ( patient on chronic O2 2-3 L) and Chronic CHF with systolic and diastolic dysfunction, echo August 2013 with an decreased left ventricular ejection fraction who presents to the ED due to increased SOB. SOB is worse with any exacerbation. Pt is requesting breathing treatments but refuses to get undressed and out of wheelchair. He refuses to provide any other history. Nursing Notes Stated Complaint: SHORT OF BREATH Chief Complaint: Respiratory Distress Nursing Notes Reviewed: Yes Allergies: Coded Allergies: vancomycin (Verified Allergy, Intermediate, Rash,Itching,, 09/23/16) Per Q: Pt should tolerates vancomycin as long as the rate is slow Scheduled Amlodipine (Amlodipine) 5 Mg Tablet 5 MG PO DAILY Aspirin Chew (Aspirin Chew) 81 Mg Chew 81 MG PO DAILY Atorvastatin Calcium (Atorvastatin Calcium) 20 Mg Tablet 20 MG PO HS Beclomethasone Dipropionate (Qvar) 8.7 Gm Aer.w.adap 1 PUFF INHALATION BID Clopidogrel (Clopidogrel) 75 Mg Tablet 75 MG PO DAILY Glipizide (Glipizide) 5 Mg Tablet 5 MG PO BIDAC Insuln Asp Prt/Insulin Aspart (NovoLOG 70/30 U100 Insulin Flexpen) 100 Unit/Ml Unit 12 UNIT SUBQ BID Isosorbide MN ER (Isosorbide MN ER) 30 Mg Tab.er.24h 30 MG PO DAILY Ketoconazole (Nizoral) 120 Ml Shampoo 120 ML TOP BID Lisinopril (Lisinopril) 5 Mg Tablet 5 MG PO DAILY Metformin (Glucophage) 1,000 Mg Tablet 1,000 MG ORAL BID Metoprolol Tartrate (Metoprolol Tartrate) 75 Mg Tablet 75 MG PO BID Sertraline HCl (Sertraline) 50 Mg Tablet 25 MG PO DAILY Scheduled PRN Albuterol Sulfate (Ventolin HFA Inhaler) 200 Puff/18 Gm Inhaler 1-2 PUFFS INH DIRECTED PRN PRN For Wheezing Benzonatate (Benzonatate) 100 Mg Capsule 100 MG PO TID PRN PRN For Cough Nitroglycerin SL (Nitroglycerin SL) 0.4 Mg Tab.subl 0.4 MG SL Q5MIN PRN PRN For Chest Pain General Time Seen by MD: 17:08 Chief Complaint Breathing problem Hx Obtained From: Patient, Other family... Unable to Obtain Hx: Uncooperative Arrived By: Wheelchair Sudden in Onset?: No Onset Occurred: Onset unknown Symptom Duration: Duration unknown Severity: Current: No pain currently Past Medical History Past Medical History Notes: PCP: Dr. 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" Multiple visits of COPD with exacerbation (patient on chronic O2 2-3 L) History of paroxysmal atrial tachycardia Chronic CHF with systolic and diastolic dysfunction, echo August 2013 with an decreased left ventricular ejection fraction History of nonadherence to medical treatment Chronic venous insufficiency Hx cellulitis Reports: COPD, Congestive heart failure, Diabetes mellitus, Hyperlipidemia, Hypertension Reports: Obesity Past Surgical History None Family History Reports: Diabetes mellitus Smoking History Former Smoker Social History Patient is currently living in his car Alcohol Use: Denies alcohol use Drug Use: Denies drug use Other Social History: Poor social support, Frequent ED visitor, Homeless 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 Physical Exam Vital Signs Vital Signs Date Time Temp Pulse Resp B/P Pulse Ox O2 Delivery O2 Flow Rate FiO2 09/23/16 18:01 18 93 Nasal Cannula 3 09/23/16 15:55 35.5 109 24 168/94 87 Initial VS: Reviewed Head / Eyes: Atraumatic, Normocephalic, PERRL ENT: Conjunctiva normal, No scleral icterus Extremities: Vascular intact, Neuro intact, No swelling (at calves), No tenderness (at calves) Skin: Warm, Dry, No cyanosis Neurologic: Alert, Oriented General/Constitutional: Awake, Alert Head / Eyes: Atraumatic, Normocephalic, PERRL Respiratory / Chest: No respiratory distress Decreased air sounds in all lung marlow. Coarse breath sounds. Cardiovascular: Heart rate NL, Regular rhythm, Heart sounds NL, No gallop, No murmurs, No rubs, Cap refill not delayed, Peripheral circulation NL Abdomen: Soft, Non-tender, No distention Interpretation & Diagnostics ECG Interpretation ECG Interpretation: Sinus tachycardia with a rate of 106 Anteroseptal Q waves present No ST segment elevation T wave flattening in lateral leads When compared to prior dated 09/19/16 there are no changes present. Time: 17:28 Interpreted by: ED physician X-Ray Chest Interpretation Chest Xray Interpretation: IMPRESSION: No acute cardiopulmonary disease process. 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 The patient has significant underlying social issues and is currently living in his vehicle. He presents complaining that his breathing issues are flaring up and is requesting breathing treatments. Of note, the patient generally refuses to undress or get out of his wheelchair and is doing this again today. Additionally, he refuses to provide any significant history stating "I have been short of breath since I was 17", when attempting to examine the patient he makes physical threats towards me. He denies any chest pain or swelling of his legs. From what I can gather all he wants is a breathing treatment. I have offered him steroids but he states he already has a full course prescribed that he has not been taking. Chest x-ray was obtained as above and demonstrated no focal consolidations or acute cardio pulmonary process. He is borderline tachycardic and but in the examination room his oxygen saturation is in the mid 90s on his baseline home O2. I ordered laboratory studies including screening troponin however the patient refused lab draw. Patient reported feeling improved after nebulizer treatment. He does not desire admission to the hospital for further workup or management. Overall presentation and convincing for acute pulmonary embolism and do not see that he has any recent major pulmonary embolus risk factors or new lateralizing calf swelling/tenderness. Given overall history and constellation of symptoms suspicion for pulmonary embolism is low. No symptoms suggestive of acute coronary syndrome. I being said he refuses laboratory studies and make an informed decision to do so. He reports feeling better and at this time I feel that he is appropriate for discharge home. He has been advised to start his prednisone taper and use his nebulizer treatments and rescue inhaler as previously directed. Follow-up with her precautions were reviewed in detail and he is discharged at his regular baseline condition. Time of Eval: 18:30 Re-Evaluation/Progress Note: Refused labs. Breathing has improved after breathing treatment. Discussed plan for discharge and follow up. All questions addressed. Counseled Regarding: Diagnosis, Need for follow-up, When/why to return to ED Discharge & Departure Primary Impression: COPD exacerbation Additional Impressions: Respiratory distress Pulmonary fibrosis Hypoxia Noncompliance with medication regimen Aggressive behavior Disposition: Home Discharge Condition All VS Reviewed: Yes Condition: Improved Additional Instructions: Thank you for seeking care at [facility] emergency room. You were seen in the ER today for shortness of breath. Our primary goal today in the ED was to evaluate you for any life-threatening conditions. Your evaluation was reassuring. Use your nebulizer treatments as directed. You should also take the course of Prednisone that was previously prescribed. You should follow-up with your primary doctor in the next week. You should return to the ED immediately if you develop fevers, vomiting, cough , shortness of breath, chest pain, lightheadedness, weakness or any other concerning signs or symptoms. Thank you for letting us partake in your care today. Referrals: Yumiko James MD (PCP) Scribe Attestation Portions of this note were transcribed by Deirdre Purcell. I, (Dr. Stern) personally performed the history, physical exam and medical decision-making; I reviewed and confirmed the accuracy of the information in the transcribed note. Signed by: Deirdre Purcell. Raimundo, 09/23/2016, [id number] copies to: Yumiko James MD, Beck O MD Sep 23, 2016 17:13 Deirdre Purcell Sep 23, 2016 17:46
[2016-09-23] MEDS ORDERED: Albuterol-Ipratropium 3 mL Inhalation Solution NEB ONE (17:15)
--- NOTE | 2016-09-23 17:53 | DRSVH ---
PROCEDURE: X-RAY CHEST, TWO VIEWS ([id number]) INDICATIONS: sob TECHNIQUE: 2 views of the chest were acquired. COMPARISON: [facility], CR, XR CHEST 2VW, 09/19/2016, 11:00. [facility], CR, XR CHEST 1VW (PORTABLE), 09/19/2016, 20:09. FINDINGS: Surgical changes and devices: None. Lungs and pleura: No pleural effusions or pneumothorax. Lungs are clear. Mediastinum: Mediastinal contours are normal. Heart size is normal. Bones and chest wall: Chronic appearing left ninth rib fracture noted. No suspicious bony abnormali ties. Soft tissues appear unremarkable. IMPRESSION: No acute cardiopulmonary disease process. Dictated by: Macarena Oliver MD, PhD on 09/23/2016 at 17:50 Approved by: Macarena Oliver MD, PhD on 09/23/2016 at 17:52
[2016-09-23 18:01] VITALS: RESP 18; O2SAT 93
[2016-09-24] MEDS ORDERED: ALBU18HF INH (18:07)
[2016-09-24] MEDS ORDERED: METO75TA PO (18:07)
[2016-09-24] MEDS ORDERED: METF1000 ORAL (18:08)
[2016-09-24] MEDS ORDERED: NITR0.4T6 SL (18:08)
[2016-09-24] MEDS ORDERED: AMLO5TAB2 PO (18:08)
[2016-09-24] MEDS ORDERED: INSU3INS3 SUBQ (18:08)
[2016-09-24] MEDS ORDERED: CLOP75TA28 PO (18:08)
[2016-09-24] MEDS ORDERED: GLPZ5T PO (18:08)
[2016-09-24] MEDS ORDERED: BECL8.7A6 INHALATION (18:08)
[2016-09-24] MEDS ORDERED: ASPI81TA3 PO (18:08)
[2016-09-24] MEDS ORDERED: ISOS30TA4 PO (18:08)
[2016-09-24] MEDS ORDERED: LISI-571 PO (18:08)
[2016-09-24] MEDS ORDERED: ATOR20TA65 PO (18:08)
[2016-09-24] MEDS ORDERED: BENZ100C8 PO (18:08)
[2016-09-24] MEDS ORDERED: SERT50TA9 PO (18:08)
[2016-09-24] MEDS ORDERED: KETO120S TOP (18:08)
== END 2016-09-23 19:07 | disposition home or self-care (01) ==
LOC: SED 15:49
DX: J44.1 Chronic obstructive pulmonary disease with (acute) exacerbation (principal); J84.10 Pulmonary fibrosis, unspecified; R46.89 Other symptoms and signs involving appearance and behavior; I25.10 Atherosclerotic heart disease of native coronary artery without angina pectoris; I10 Essential (primary) hypertension; E78.5 Hyperlipidemia, unspecified; E11.59 Type 2 diabetes mellitus with other circulatory complications; Z91.14 Patient's other noncompliance with medication regimen; Z87.891 Personal history of nicotine dependence; Z79.4 Long term (current) use of insulin; Z79.84 Long term (current) use of oral hypoglycemic drugs; Z79.82 Long term (current) use of aspirin; Z88.1 Allergy status to other antibiotic agents
CPT/HCPCS: 71020; 90791; 93005; 94664; 99284; J7620

== ENCOUNTER 2016-09-24 14:48 | Emergency (ER) | payer MEDICARE ==
[~2016-09-24] VITALS: Ht 170.2 cm; Wt 104.5 kg
[2016-09-24 14:57] VITALS: BP 114/74; PULSE 135; RESP 28; O2SAT 87
[2016-09-24 15:40] VITALS: BP 106/77; PULSE 128; RESP 16; O2SAT 91
[2016-09-24 15:50] LABS: BASOPHILS % (AUTO) 0.5 % (0-3); EOSINOPHILS % (AUTO) 0.4 % (0-5); Mean Corpuscular Hemoglobin 29.1 pg (27.0-35.0); Mean Corpuscular Volume 86.5 fL (81-100); NEUTROPHILS % (AUTO) 90.6 % (40-74); Platelet Count 256 bil/L (150-400)
--- NOTE | 2016-09-24 16:07 | DRSVH ---
PROCEDURE: X-RAY CHEST ONE VIEW, PORTABLE ([id number]) INDICATIONS: chest pain TECHNIQUE: One view of the chest was acquired. COMPARISON: [facility], CR, XR CHEST 1VW (PORTABLE), 09/19/2016, 20:09. FINDINGS: Surgical changes and devices: None. Lungs and pleura: No pleural effusions or pneumothorax. Lungs are clear, aside from scarring involv ing the left lung base.. Mediastinum: Mediastinal contours appear normal. Heart size is normal. Bones and chest wall: No suspicious bony lesions. Overlying soft tissues appear unremarkable. IMPRESSION: No acute cardiopulmonary disease. Dictated by: Simba Lezama RRYaz Interpreted: Chris Leahy MD on 09/24/2016 at 16:06 Transcribed by: GRISEL on 09/24/2016 at 16:06 Approved by: Chris Leahy M.D. on 09/25/2016 at 13:26
[2016-09-24 16:13] LABS: TROPONIN T < 0.010 ug/L (0.0-0.011)
[2016-09-24 16:22] LABS: Magnesium 1.4 mg/dL (1.6-2.6)
[2016-09-24] MEDS ORDERED: Albuterol-Ipratropium 3 mL Inhalation Solution NEB ONE (16:25)
[2016-09-24] MEDS ORDERED: MeTOProlol 1 mg/mL 5 mL Inj IVPUSH SCH (16:25)
[2016-09-24] MEDS ORDERED: Albuterol-Ipratropium 3 mL Inhalation Solution NEB SCH (16:30)
[2016-09-24 16:51] VITALS: PULSE 133; RESP 20; O2SAT 89
[2016-09-24] MEDS ORDERED: Magnesium Chloride SR 64 mg ER24 Tablet PO ONE (17:15)
[2016-09-24] MEDS ORDERED: Insulin LISPRO 300 Unit/3 mL Inj SUBQ ONE (17:20)
--- NOTE | 2016-09-24 17:42 | ED.REPORT ---
HPI-Chest Pain 40 and Over Date of Service Sep 24, 2016 ED Provider: AristeoDuke Leon DO 66yoM with PMH remarkable for HFrEF, CAD, prior MS, COPD, DM presents with acute onset chest pain while at rest. The pain was described as severe and substernal in nature. He denies any shortness of breath associated with the pain , he denies any nausea, he denies any radiation of the pain. Clem states that it was the same problem as before. When asked to describe the pain Clem stated that "he is tired of this shit" and "I want to know whats wrong" and "I am not going home". Clem states that he takes three pills a day, but it unsure of the name of each. He does not take any pill more than once a day. He is unsure if one of those pills is Metoprolol. He has his inhaler with him and it is Proair. Nursing Notes Stated Complaint: TROUBLE BREATHING Chief Complaint: Respiratory Distress Allergies: Coded Allergies: vancomycin (Verified Allergy, Intermediate, Rash,Itching,, 09/24/16) Per Q: Pt should tolerates vancomycin as long as the rate is slow Scheduled Amlodipine (Amlodipine) 5 Mg Tablet 5 MG PO DAILY Aspirin Chew (Aspirin Chew) 81 Mg Chew 81 MG PO DAILY Atorvastatin Calcium (Atorvastatin Calcium) 20 Mg Tablet 20 MG PO HS Beclomethasone Dipropionate (Qvar) 8.7 Gm Aer.w.adap 1 PUFF INHALATION BID Clopidogrel (Clopidogrel) 75 Mg Tablet 75 MG PO DAILY Glipizide (Glipizide) 5 Mg Tablet 5 MG PO BIDAC Insuln Asp Prt/Insulin Aspart (NovoLOG 70/30 U100 Insulin Flexpen) 100 Unit/Ml Unit 12 UNIT SUBQ BID Isosorbide MN ER (Isosorbide MN ER) 30 Mg Tab.er.24h 30 MG PO DAILY Ketoconazole (Nizoral) 120 Ml Shampoo 120 ML TOP BID Lisinopril (Lisinopril) 5 Mg Tablet 5 MG PO DAILY Metformin (Glucophage) 1,000 Mg Tablet 1,000 MG ORAL BID Metoprolol Tartrate (Metoprolol Tartrate) 75 Mg Tablet 75 MG PO BID Sertraline HCl (Sertraline) 50 Mg Tablet 25 MG PO DAILY Scheduled PRN Albuterol Sulfate (Ventolin HFA Inhaler) 200 Puff/18 Gm Inhaler 1-2 PUFFS INH DIRECTED PRN PRN For Wheezing Benzonatate (Benzonatate) 100 Mg Capsule 100 MG PO TID PRN PRN For Cough Nitroglycerin SL (Nitroglycerin SL) 0.4 Mg Tab.subl 0.4 MG SL Q5MIN PRN PRN For Chest Pain General Time Seen by MD: 15:40 Chief Complaint Chest pain Hx Obtained From: Patient Arrived By: Walk-in, Wheelchair Sudden in Onset?: Yes Onset Occurred: 1 - 4 hours ago Context of Onset: At rest Symptom Duration: 16 - 30 minutes (20 minutes reported) Location: : Substernal Quality: Pressure, Sharp Radiation: : Does not radiate Migration/Movement: Reports: None Severity: Current: No pain currently Severity: Maximum: Severe Recent Healthcare: Recent hospitalization, Recent testing, Prior workup Similar Sx Previous: Yes Risk Factors )( CAD Risk Stratification Diabetes mellitus Hyperlipidemia Hypertension Known CAD Risk factors reviewed Past Medical History Past Medical History Notes: PCP: Dr. 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" Multiple visits of COPD with exacerbation (patient on chronic O2 2-3 L) History of paroxysmal atrial tachycardia Chronic CHF with systolic and diastolic dysfunction, echo August 2013 with an decreased left ventricular ejection fraction History of nonadherence to medical treatment Chronic venous insufficiency Hx cellulitis Reports: COPD, Congestive heart failure, Diabetes mellitus, Hyperlipidemia, Hypertension Reports: Obesity Past Surgical History None Family History Reports: Diabetes mellitus Smoking History Former Smoker Social History Patient is currently living in his car Alcohol Use: Denies alcohol use Drug Use: Denies drug use Other Social History: Poor social support, Frequent ED visitor, Homeless 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 Physical Exam Initial Vital Signs Vital Signs (First) Date Time Temp Pulse Resp B/P Pulse Ox O2 Delivery O2 Flow Rate FiO2 09/24/16 14:57 36.8 135 28 114/74 87 Room Air 09/24/16 15:40 2 Initial VS: Reviewed Head / Eyes: Atraumatic, Normocephalic, PERRL ENT: Mucous membranes moist, Conjunctiva normal, No scleral icterus Neck: Supple, Non-tender, Full range of motion Back: No CVA tenderness Lymphatic: No lymphadenopathy Neurologic: Alert, Oriented, Nonfocal General/Constitutional: No acute distress Behavior: Positive: Agitated, Hostile Appearance / Presentation: Positive: Debilitated, Hygiene poor, Ill appearing/ not toxic, Obese, morbidly Respiratory / Chest: No chest tenderness, No chest wall deformity Wheezing / Retractions: Positive: Prolonged exp phase, Wheezing expiratory, Wheezing mild Cardiovascular: Pulses = bilaterally Heart Rate / Rhythm: Positive: Tachycardia Heart Sounds / Murmur: Positive: Systolic murmur present.. Periph CV / BP Differential: Positive: Peripheral pulses weak Lower Ext Edema: Positive: Bilateral 3+, Pitting patient does not want to undress or have his legs squeezed due to tenderness His legs are red and indurated bilaterally consistent with venous stasis changes Tenderness/Guarding/Rebound: Positive: Tender epigastric Organomegaly / Mass / Hernia: Positive: Hernia is tender (epigastric) Bowel Sounds / Distention: Positive: Distention moderate possible epigastric/subzyphoid hernia tender on palpation Abnormal Thinking / Perception: Positive: Insight abnormal, Judgment abnormal Unable to Evaluate: Positive: Uncooperative Head / Eyes: PERRL, Conjunctiva NL Interpretation & Diagnostics Lab Results Interpretation Result Diagram: 09/24/16 1540 09/24/16 1540 Test 09/24/16 15:40 White Blood Count 8.2th/mm3 (3.8-10.1) Red Blood Count 4.43mil/mm3 (4.40-5.80) Hemoglobin 12.9g/dL (13.8-17.2) Hematocrit 38.3% (41.0-50.0) Mean Corpuscular Volume 86.5fL (81-100) Mean Corpuscular Hemoglobin 29.1pg (27.0-35.0) Mean Corpuscular Hemoglobin Concent 33.7% (32.0-37.0) Red Cell Distribution Width 15.5% (12.3-15.4) Platelet Count 256bil/L (150-400) Neutrophils (%) (Auto) 90.6% (40-74) Lymphocytes (%) (Auto) 4.5% (14-46) Monocytes (%) (Auto) 3.0% (4-12) Eosinophils (%) (Auto) 0.4% (0-5) Basophils (%) (Auto) 0.5% (0-3) Sodium Level 136mEq/L (134-144) Potassium Level 5.0mEq/L (3.5-5.2) Chloride Level 99mEq/L (97-108) Carbon Dioxide Level 21mmol/L (18-29) Blood Urea Nitrogen 17mg/dL (8-27) Creatinine 0.74mg/dL (0.76-1.27) Estimat Glomerular Filtration Rate 112mL/min (>59) Glucose Level 429mg/dL (60-99) Calcium Level 8.6mg/dL (8.5-10.1) Magnesium Level 1.4mg/dL (1.6-2.6) Total Bilirubin 0.7mg/dL (0.0-1.2) Aspartate Amino Transf (AST/SGOT) 11U/L (0-50) Alanine Aminotransferase (ALT/SGPT) 17U/L (0-44) Alkaline Phosphatase 59U/L (25-160) Troponin T < 0.010ug/L (0.0-0.011) Total Protein 5.7g/dL (6.4-8.4) Albumin 3.8g/dL (3.4-5.0) Hold Ramires Top Tube Received (Received) ECG Interpretation ECG Interpretation: sinus tachycardia No acute ST changes Interpreted by: ED physician Abnormal Rate: 120 Abnormal T wave or ST segment: Non-specific ST changes Rhythm / Conduction: Tachycardia Re-Eval/Medical Decision Med Decision/Clinical Course The patient is historically non-compliant with medication, and continues to be non-compliant as he states he only takes three pills per day. It is unknown what of his medications he is currently taking. He has metoprolol for rate control and long acting nitro for angina, as well as glipizide and metformin for diabetes controll, however his blood glucose and heart rate remain elevated. His vital signs remain stable and he has been given medication metoprolol and insulin. Attending note: I saw and personally evaluated this patient. Of concern the patient initially presents in sinus tachycardia. Overall after further evaluation and discussion with the patient he has been noncompliant with his medication and has lost his housing.. His heart rate normalized with normal wall. Reports only taking 3 unknown medications. His breathing is at baseline. He received DuoNeb nebs in the ER after which he told me he has no more concerns about his respiratory status and breathing. He denies any chest pain while in the ER. Workup was unremarkable in terms of labs and chest x- ray. When I discussed with the patient that he seems to have been stabilized he was upset saying that it is dark outside and cold. Offered long term care social worker which he declined. We will plan to discharge, will refill his medicines. I do not suspect any emergency medical condition at this time. Source of Hx: Old records Discharge & Departure Primary Impression: Stable angina Additional Impressions: COPD (chronic obstructive pulmonary disease) Diabetes mellitus out of control Disposition: Home Discharge Condition All VS Reviewed: Yes Condition: Stable Additional Instructions: During you visit to [facility] Emergency Department we obtained blood work for heart attack, infectious markers, hemoglobin levels, and electrolytes. We obtained an x-ray of your chest which was normal. All your lab values were within normal limits and your imaging showed no acute processes or abnormalities. Your vital signs were stable and safe for discharge. We will send you home with - you should have plenty of medication and refills - please take all your medications as directed - metoprolol 75mg twice daily to control your heart rate - isosorbide MN ER 30mg daily for chest pain - glipizide 5mg twice daily - Lisinopril 5mg daily for blood pressure - Amlodipine 5mg daily for blood pressure - Metformin 1000mg twice daily - QVAR inhaler 1 puff twice daily - proair inhaler 1-2puff as needed for wheezing - Plavix 75mg daily - Atorvastatin 20mg every night for cholesterol Do not hesitate to call emergency services or your primary care physician if you experience any of the following. - High unrelenting fevers. - Uncontrolled vomiting. - Severe hypertension. - Syncope or loss of consciousness. - Chest pain or severe shortness of breath. Follow up with your primary care physician in 1 weeks time following your emergency department visit for medication checks and general well-being. Referrals: Yumiko James MD (PCP) Attending Statement The patient was seen and examined together with Dr. Ho on 09/24/16 and I have added additional information to the note above. copies to: Yumiko James MD, NICHOLAS K DO Sep 24, 2016 16:09 Duke Alberts DO Sep 24, 2016 18:03
[2016-09-24 17:59] VITALS: PULSE 94; RESP 22; O2SAT 92
[2016-09-24 18:00] VITALS: PULSE 95; RESP 18; O2SAT 89
[2016-09-24] MEDS ORDERED: ALBU18HF INH (18:07)
[2016-09-24] MEDS ORDERED: METO75TA PO (18:07)
[2016-09-24] MEDS ORDERED: AMLO5TAB2 PO (18:08)
[2016-09-24] MEDS ORDERED: GLPZ5T PO (18:08)
[2016-09-24] MEDS ORDERED: LISI-571 PO (18:08)
[2016-09-24] MEDS ORDERED: KETO120S TOP (18:08)
[2016-09-24] MEDS ORDERED: ASPI81TA3 PO (18:08)
[2016-09-24] MEDS ORDERED: CLOP75TA28 PO (18:08)
[2016-09-24] MEDS ORDERED: INSU3INS3 SUBQ (18:08)
[2016-09-24] MEDS ORDERED: METF1000 ORAL (18:08)
[2016-09-24] MEDS ORDERED: BECL8.7A6 INHALATION (18:08)
[2016-09-24] MEDS ORDERED: ATOR20TA65 PO (18:08)
[2016-09-24] MEDS ORDERED: ISOS30TA4 PO (18:08)
[2016-09-24] MEDS ORDERED: SERT50TA9 PO (18:08)
[2016-09-24] MEDS ORDERED: NITR0.4T6 SL (18:08)
[2016-09-24] MEDS ORDERED: BENZ100C8 PO (18:08)
[2016-09-24 18:30] VITALS: BP 135/70; PULSE 94; RESP 24; O2SAT 91
== END 2016-09-24 18:31 | disposition home or self-care (01) ==
LOC: SED 14:48
DX: E11.59 Type 2 diabetes mellitus with other circulatory complications (principal); I20.8 Other forms of angina pectoris; E11.65 Type 2 diabetes mellitus with hyperglycemia; J44.9 Chronic obstructive pulmonary disease, unspecified; I25.10 Atherosclerotic heart disease of native coronary artery without angina pectoris; I11.0 Hypertensive heart disease with heart failure; I50.9 Heart failure, unspecified; I25.2 Old myocardial infarction; E78.5 Hyperlipidemia, unspecified; F17.200 Nicotine dependence, unspecified, uncomplicated; Z79.82 Long term (current) use of aspirin; Z79.4 Long term (current) use of insulin; Z79.84 Long term (current) use of oral hypoglycemic drugs; Z59.0 Homelessness; Z88.8 Allergy status to other drugs, medicaments and biological substances
CPT/HCPCS: 36415; 71010; 80053; 83735; 84484; 85025; 93005; 94640; 94664; 99285; J1815; J7620

== ENCOUNTER 2016-09-25 00:42 | Emergency (ER) | payer MEDICARE ==
[2016-09-25 00:52] VITALS: BP 137/67; PULSE 110; RESP 40; O2SAT 74
[2016-09-25] MEDS ORDERED: Albuterol-Ipratropium 3 mL Inhalation Solution ONE (00:59)
[2016-09-25] MEDS ORDERED: Albuterol 2.5 mg/3 mL Inhalation Solution NEB ONE (01:13)
[2016-09-25 01:17] VITALS: PULSE 109; RESP 35; O2SAT 85
--- NOTE | 2016-09-25 02:01 | ED.REPORT ---
HPI-Dyspnea / Wheezing Date of Service Sep 25, 2016 ED Provider: Aldo Chicas MD Patient is a homeless 66 year old male with a history of COPD, systolic heart failure, coronary artery disease, diabetes mellitus, and chronic medical noncompliance who is well known to the ED presents with increased shortness of breath that awoke him from sleep tonight. Patient reports that he awoke from sleep wheezing, short of breath, and coughing. He admits to associated chest pain. The patient lives in his car but is able to use a nebulizer in his vehicle. He was using the nebulizer when his symptoms began. Patient was seen in the ED yesterday afternoon for the same complaint and treated with nebulizer treatments prior to discharge. Patient declined social media developer but stated that he did not want to leave the department. Patient has a history of being abusive to staff and often leaves the hospital AMA if admitted. Nursing Notes Stated Complaint: SOB/CP Chief Complaint: Respiratory Distress Nursing Notes Reviewed: Yes Allergies: Coded Allergies: vancomycin (Verified Allergy, Intermediate, Rash,Itching,, 09/24/16) Per Q: Pt should tolerates vancomycin as long as the rate is slow Scheduled Amlodipine (Amlodipine) 5 Mg Tablet 5 MG PO DAILY Aspirin Chew (Aspirin Chew) 81 Mg Chew 81 MG PO DAILY Atorvastatin Calcium (Atorvastatin Calcium) 20 Mg Tablet 20 MG PO HS Beclomethasone Dipropionate (Qvar) 8.7 Gm Aer.w.adap 1 PUFF INHALATION BID Clopidogrel (Clopidogrel) 75 Mg Tablet 75 MG PO DAILY Glipizide (Glipizide) 5 Mg Tablet 5 MG PO BIDAC Insuln Asp Prt/Insulin Aspart (NovoLOG 70/30 U100 Insulin Flexpen) 100 Unit/Ml Unit 12 UNIT SUBQ BID Isosorbide MN ER (Isosorbide MN ER) 30 Mg Tab.er.24h 30 MG PO DAILY Ketoconazole (Nizoral) 120 Ml Shampoo 120 ML TOP BID Lisinopril (Lisinopril) 5 Mg Tablet 5 MG PO DAILY Metformin (Glucophage) 1,000 Mg Tablet 1,000 MG ORAL BID Metoprolol Tartrate (Metoprolol Tartrate) 75 Mg Tablet 75 MG PO BID Sertraline HCl (Sertraline) 50 Mg Tablet 25 MG PO DAILY Scheduled PRN Albuterol Sulfate (Ventolin HFA Inhaler) 200 Puff/18 Gm Inhaler 1-2 PUFFS INH DIRECTED PRN PRN For Wheezing Benzonatate (Benzonatate) 100 Mg Capsule 100 MG PO TID PRN PRN For Cough Nitroglycerin SL (Nitroglycerin SL) 0.4 Mg Tab.subl 0.4 MG SL Q5MIN PRN PRN For Chest Pain General Time Seen by MD: 01:32 Chief Complaint Shortness of breath Hx Obtained From: Patient Arrived By: Walk-in Sudden in Onset?: No Onset Occurred: Just prior to arrival Symptom Duration: Since onset Location: : Chest left: Chest right Quality: Painful Severity: Current: Mild Severity: Maximum: Mild Recent Healthcare: No recent hospitalization, Recent doctor visit Similar Sx Previous: Yes Past Medical History Past Medical History Notes: PCP: Dr. James Frequent hospital admissions for COPD exacerbations Often refuses treatment and is abusive to staff. Often leaves AMA. 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, echo August 2013 with an decreased left ventricular ejection fraction History of nonadherence to medical treatment Chronic venous insufficiency Hx cellulitis Reports: COPD, Congestive heart failure, Diabetes mellitus, Hyperlipidemia, Hypertension Reports: Obesity Past Surgical History None Family History Reports: Diabetes mellitus Smoking History Former Smoker Social History Patient is currently living in his car Alcohol Use: Denies alcohol use Drug Use: Denies drug use Other Social History: Poor social support, Frequent ED visitor, Homeless 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 Male: Denies Incontinence Neurologic: Denies: Change LOC, Shaking Physical Exam Initial Vital Signs Vital Signs (First) Date Time Temp Pulse Resp B/P Pulse Ox O2 Delivery O2 Flow Rate FiO2 09/25/16 00:52 36.1 110 40 137/67 74 Room Air 09/25/16 01:17 3 Initial VS: Reviewed, Vital signs abnormal Head / Eyes: Atraumatic, Normocephalic, PERRL ENT: Conjunctiva normal, No scleral icterus Extremities: Vascular intact, Neuro intact Skin: Warm, Dry Neurologic: Alert, Oriented, Nonfocal Psychiatric: Mood/affect normal, Behavior normal, Normal thought content General/Constitutional: Awake, Alert Appearance / Presentation: Positive: Obese malodorous, smells of urine Neck: Supple, No JVD Respiratory / Chest: No rales, No rhonchi Wheezing / Retractions: Positive: Wheeze insp/exp diffuse (faint) decreased air movement, moving air poorly Cardiovascular: Heart rate NL, Regular rhythm, Heart sounds NL Abdomen: Soft, Non-tender, No guarding, No rebound Re-Eval/Medical Decision Med Decision/Clinical Course 66-year-old male with chronic COPD presents with an acute exacerbation. His O2 sats were in the 70s. He responded to nebulizer treatments. He refused further evaluation or steroids. He will be discharged back to his car where he stays. Source of Hx: Old records Re-Evaluation/Progress : Time of Eval: 02:00 Patient Status: Condition improved Re-Evaluation/Progress Note: Patient is requesting to be discharged home after a single breathing treatment. He would like to sleep in his car and does not want additional treatments. Patient understands and agrees with the plan to be discharged home. Discharge instructions and follow-up discussed. All questions were addressed. Return to the ED warnings given. Counseled Regarding: Diagnosis, Need for follow-up, When/why to return to ED Discharge & Departure Impression: Primary Impression: COPD with acute exacerbation Disposition: Home Discharge Condition All VS Reviewed: Yes Condition: Improved Patient Instructions: Chronic Obstructive Pulmonary Disease (ED) Additional Instructions: Resume your regular medicines and followup with Dr. James as needed. Referrals: Yumiko James MD (PCP) Scribe Attestation Portions of this note were transcribed by Zuleika Mayberry. I, Dr. Chicas personally performed the history, physical exam and medical decision-making; I reviewed and confirmed the accuracy of the information in the transcribed note. Signed by: Raimundo Peralta, 09/25/2016 0241 copies to: Yumiko James MD, Howard L MD Sep 25, 2016 02:01 Zuleika Mayberry Sep 25, 2016 02:08
== END 2016-09-25 02:36 | disposition home or self-care (01) ==
LOC: SED 00:42
DX: J44.1 Chronic obstructive pulmonary disease with (acute) exacerbation (principal); I25.10 Atherosclerotic heart disease of native coronary artery without angina pectoris; I25.2 Old myocardial infarction; I50.42 Chronic combined systolic (congestive) and diastolic (congestive) heart failure; E11.9 Type 2 diabetes mellitus without complications; E78.5 Hyperlipidemia, unspecified; I10 Essential (primary) hypertension; E66.9 Obesity, unspecified; Z91.14 Patient's other noncompliance with medication regimen; Z87.891 Personal history of nicotine dependence; Z59.0 Homelessness; Z79.84 Long term (current) use of oral hypoglycemic drugs; Z79.4 Long term (current) use of insulin; Z79.82 Long term (current) use of aspirin; Z88.1 Allergy status to other antibiotic agents
CPT/HCPCS: 99284; J7613; J7620

== ENCOUNTER 2016-09-27 13:20 | Emergency (ER) | payer MEDICARE ==
[~2016-09-27] VITALS: Ht 170.2 cm; Wt 101.4 kg
[2016-09-27 13:40] VITALS: BP 131/81; PULSE 116; RESP 32; O2SAT 92
[2016-09-27] MEDS ORDERED: Albuterol-Ipratropium 3 mL Inhalation Solution NEB ONE (15:35)
[2016-09-27 15:58] VITALS: PULSE 75; RESP 20; O2SAT 94
--- NOTE | 2016-09-27 16:10 | DRSVH ---
PROCEDURE: X-RAY CHEST, TWO VIEWS ([id number]) INDICATIONS: increasing sob TECHNIQUE: 2 views of the chest were acquired. COMPARISON: [facility], CR, XR CHEST 2VW, 08/20/2016, 8:45. [facility], CT, CT ANGIO CHEST PE, 07/27/2016, 20:22. [facility], CR, XR CHEST 2VW, 09/23/2016, 17:25. [facility], CR, XR CHEST 1VW (PORTABLE), 09/24/2016, 15:40. FINDINGS: Surgical changes and devices: None. Lungs and pleura: No pleural effusions or pneumothorax. Lungs are clear. Diffuse scarring. Lungs a re hyperinflated in keeping with chronic obstructive physiology Mediastinum: Mediastinal contours are normal. Heart size is normal. Bones and chest wall: No suspicious bony abnormalities. Chronic left lower rib fracture as before. Soft tissues appear unremarkable. IMPRESSION: No acute disease or interval change Dictated by: Malcom Du M.D. on 09/27/2016 at 16:05 Approved by: Malcom Du M.D. on 09/27/2016 at 16:07
[2016-09-27 16:22] VITALS: BP 123/84; PULSE 110; RESP 20; O2SAT 92
--- NOTE | 2016-09-27 17:05 | ED.REPORT ---
HPI-Dyspnea / Wheezing Date of Service Sep 27, 2016 ED Provider: Lyric Vogt Nursing Notes Stated Complaint: SOB Chief Complaint: Respiratory Complaints Nursing Notes Reviewed: Yes Allergies: Coded Allergies: vancomycin (Verified Allergy, Intermediate, Rash,Itching,, 09/24/16) Per Q: Pt should tolerates vancomycin as long as the rate is slow Scheduled Albuterol HFA (Proair HFA) 8.5 Gm Hfa.aer.ad 2 PUFFS INHALATION Q4H Amlodipine (Amlodipine) 5 Mg Tablet 5 MG PO DAILY Aspirin Chew (Aspirin Chew) 81 Mg Chew 81 MG PO DAILY Atorvastatin Calcium (Atorvastatin Calcium) 20 Mg Tablet 20 MG PO HS Azithromycin (Zithromax (Z-Tyree)) 250 Mg Tablet 250 MG PO DIRECTED Take two tablets by mouth on day 1, then take one tablet daily on days 2 through 5. Beclomethasone Dipropionate (Qvar) 8.7 Gm Aer.w.adap 1 PUFF INHALATION BID Clopidogrel (Clopidogrel) 75 Mg Tablet 75 MG PO DAILY Glipizide (Glipizide) 5 Mg Tablet 5 MG PO BIDAC Insuln Asp Prt/Insulin Aspart (NovoLOG 70/30 U100 Insulin Flexpen) 100 Unit/Ml Unit 12 UNIT SUBQ BID Isosorbide MN ER (Isosorbide MN ER) 30 Mg Tab.er.24h 30 MG PO DAILY Ketoconazole (Nizoral) 120 Ml Shampoo 120 ML TOP BID Lisinopril (Lisinopril) 5 Mg Tablet 5 MG PO DAILY Metformin (Glucophage) 1,000 Mg Tablet 1,000 MG ORAL BID Metoprolol Tartrate (Metoprolol Tartrate) 75 Mg Tablet 75 MG PO BID Prednisone (PredniSONE) 20 Mg Tablet 40 MG PO DAILY Sertraline HCl (Sertraline) 50 Mg Tablet 25 MG PO DAILY Scheduled PRN Albuterol Sulfate (Ventolin HFA Inhaler) 200 Puff/18 Gm Inhaler 1-2 PUFFS INH DIRECTED PRN PRN For Wheezing Benzonatate (Benzonatate) 100 Mg Capsule 100 MG PO TID PRN PRN For Cough Nitroglycerin SL (Nitroglycerin SL) 0.4 Mg Tab.subl 0.4 MG SL Q5MIN PRN PRN For Chest Pain General Time Seen by MD: 14:41 Chief Complaint Cough, Wheezing Worsening of chronic respiratory disease. Wheezing and cough. Denies fever or recent URI. Hx Obtained From: Patient Arrived By: Walk-in Caused by: Spontaneous Sudden in Onset?: No Onset Occurred: 2 days ago Context of Onset: Bronchitis (chronic) Symptom Duration: Since onset Location: : None Quality: Same as prior Radiation: : Does not radiate Severity: Current: No pain currently Severity: Maximum: Mild Associated with: Reports: Cough, Wheeze, Denies: Anxiety, Chest pain, Diaphoresis, Fever, Nasal congestion, Sore throat Pertinent Negative: Pt denies other symptoms Exacerbated by: Activity Relieved by: Inhaler, Rest Context Related History: Reports: COPD Asthma History: Last ED visit < 1 month, Steroid tx in past, Home albuterol MDI , Home albuterol neb Recent Healthcare: Recent doctor visit Similar Sx Previous: Yes Past Medical History Past Medical History Notes: PCP: Dr. James Frequent hospital admissions for COPD exacerbations Often refuses treatment and is abusive to staff. Often leaves AMA. 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, echo August 2013 with an decreased left ventricular ejection fraction History of nonadherence to medical treatment Chronic venous insufficiency Hx cellulitis Reports: COPD, Congestive heart failure, Diabetes mellitus, Hyperlipidemia, Hypertension Reports: Obesity Past Surgical History None Family History Reports: Diabetes mellitus Smoking History Former Smoker Social History Patient is currently living in his car Alcohol Use: Denies alcohol use Drug Use: Denies drug use Other Social History: Poor social support, Frequent ED visitor, Homeless 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 Ambulatory Status Wheelchair Review of Systems Basic Review of Systems Eyes: Vision NL, No discharge GI: No abdominal pain, No anorexia, No nausea, No vomiting : No dysuria, No frequency Hematologic: No bleeding, No bruising Endocrine: No cold intolerance, No heat intolerance, No weight gain, No weight loss Neurologic: NL mental status, No weakness, No numbness Psychiatric: Normal thought content Constitutional: Denies: Fatigue, Fever Ears / Nose / Throat: Denies: Earache bilateral, Sore throat Respiratory: Reports: Dyspnea on exertion, Non-productive cough Cardiovascular: Denies: Chest pain, Edema, Palpitations Musculoskeletal: Denies: Back pain Skin: Denies Bruising, Denies Rash Allergy / Immune: Denies: Hives, Itching Complete sys rev & neg: except as marked. Physical Exam Initial Vital Signs Vital Signs (First) Date Time Temp Pulse Resp B/P Pulse Ox O2 Delivery O2 Flow Rate FiO2 09/27/16 13:40 36.6 116 32 131/81 92 Nasal Cannula 3 Initial VS: Reviewed, Vital signs abnormal (decreased Sp02) Head / Eyes: Atraumatic, Normocephalic, PERRL ENT: Mucous membranes moist, Conjunctiva normal, No scleral icterus Abdomen / GI: No distention Lymphatic: No lymphadenopathy Extremities: Vascular intact, Neuro intact, No swelling, No tenderness Skin: Warm, Dry, No cyanosis Neurologic: Alert, Oriented, Nonfocal Psychiatric: Mood/affect normal, Behavior normal, Normal thought content General/Constitutional: Awake, Alert, No acute distress Distress / Hydration: Positive: Distress mild Behavior: Positive: Uncooperative (argumentative) Appearance / Presentation: Positive: Appears older than age, Hygiene poor ( strong odor or urine) Neck: Atraumatic, Supple, No meningismus, Full range of motion Respiratory / Chest: Atraumatic, No respiratory distress, No rales, No rhonchi , No retractions Wheezing / Retractions: Positive: Wheezing mild (scattered) Cardiovascular: Heart rate NL, Regular rhythm, Heart sounds NL, No gallop, No murmurs, Cap refill not delayed Interpretation & Diagnostics X-Ray Chest Interpretation Chest Xray Interpretation: FINDINGS: Surgical changes and devices: None. Lungs and pleura: No pleural effusions or pneumothorax. Lungs are clear. Diffuse scarring. Lungs are hyperinflated in keeping with chronic obstructive physiology Mediastinum: Mediastinal contours are normal. Heart size is normal. Bones and chest wall: No suspicious bony abnormalities. Chronic left lower rib fracture as before. Soft tissues appear unremarkable. IMPRESSION: No acute disease or interval change View: AP & lat Interpretation / Wet Read by: Interpret - Radiologist Reviewed Previous Films: No change NL X-Ray Chest Findings: No infiltrate Re-Eval/Medical Decision Med Decision/Clinical Course Pt became very argumentative at discharge. Refusing to go home because he lives in his car and cannot afford to pay for gas to run the engine. SENIOR CARE ASSISTANT consult requested and found that pt has had numerous SENIOR CARE ASSISTANT interactions and pt has refused all help with housing. Pt does not meet criteria for admission. Pt states that he will call and ambulance so he can come back to the ER tonight. Severity: Non life-threatening Diagnosis Appears: Non-critical Comorbidities: COPD Counseled Regarding: Diagnosis, When/why to return to ED Safety Concerns: Homeless Discharge & Departure Impression: Primary Impression: COPD with acute exacerbation Disposition: Home Discharge Condition All VS Reviewed: Yes Condition: Improved Patient Instructions: Chronic Obstructive Pulmonary Disease (ED) Additional Instructions: Your x-ray looks good today. No signs of a bad infection, pneumonia, or a collapsed lung. This is likely an exacerbation of your COPD. We will start you on an antibiotic, prednisone, and a new inhaler. Take your home medicines as prescribed and follow-up with their regular doctor as needed. Return to the emergency room for any other concerns. Referrals: Yumiko James MD (PCP) EDSupervising Provider for APC: Ranjeet Howell MD, Lora L ARNP Sep 27, 2016 17:05
[2016-09-27] MEDS ORDERED: PRE20 PO (17:08)
[2016-09-27] MEDS ORDERED: AZIT250T4 PO (17:08)
[2016-09-27] MEDS ORDERED: ALBU8.5H2 INHALATION (17:08)
[2016-09-27] MEDS ORDERED: predniSONE 20 mg Tablet PO ONE (17:10)
[2016-09-27 17:30] VITALS: BP 123/84; PULSE 110; RESP 20; O2SAT 92
== END 2016-09-27 17:09 | disposition home or self-care (01) ==
LOC: SED 13:20
DX: J44.1 Chronic obstructive pulmonary disease with (acute) exacerbation (principal); E11.9 Type 2 diabetes mellitus without complications; I11.0 Hypertensive heart disease with heart failure; I50.43 Acute on chronic combined systolic (congestive) and diastolic (congestive) heart failure; I25.10 Atherosclerotic heart disease of native coronary artery without angina pectoris; Z86.73 Personal history of transient ischemic attack (TIA), and cerebral infarction without residual deficits; Z87.891 Personal history of nicotine dependence; Z79.82 Long term (current) use of aspirin; Z79.84 Long term (current) use of oral hypoglycemic drugs; Z79.4 Long term (current) use of insulin; Z88.1 Allergy status to other antibiotic agents
CPT/HCPCS: 71020; 94664; 99284; J7620

== ENCOUNTER 2016-09-30 16:44 | Inpatient (IN) | payer MEDICARE ==
[~2016-09-30] VITALS: Ht 170.2 cm; Wt 101.4 kg
[~2016-09-30 16:44] MED LIST changes: +ALBU8.5H2 INHALATION; +AZIT250T4 PO; +PRE20 PO
[2016-09-30 16:47] VITALS: BP 171/91; PULSE 133; RESP 32; O2SAT 92
--- NOTE | 2016-09-30 18:55 | ED.REPORT ---
HPI-Dyspnea / Wheezing Date of Service Sep 30, 2016 ED Provider: Eliza Quintero MD Patient is a homeless 66 year old male with a history of COPD congestive heart failure, coronary artery disease with prior NSTEMI, diabetes mellitus, and medical noncompliance who is well known to the ED presents with increased shortness of breath since 2:30pm this afternoon. He states that his shortness of breath is "no different than any other time". The patient attempted to use his Nebulizer in his car, but states that it ran out of his medication. He reports taking Prednisone daily, but he does not know what his dose is. Patient states that he has been taking all medications as prescribed. He is meant to be on oxygen daily but it has to stay in the trunk of his car. He reports difficulty moving the tanks from his trunk and that the tanks only last for a maximum of 2-3 hours anyway. He denies cough, fever, chills, chest pain, abdominal pain, or any other complaints. The patient is a former smoker. The patient lives in his car. Nursing Notes Stated Complaint: SHORTNESS OF BREATH Chief Complaint: Respiratory Complaints Nursing Notes Reviewed: Yes Allergies: Coded Allergies: vancomycin (Verified Allergy, Intermediate, Rash,Itching,, 09/24/16) Per Q: Pt should tolerates vancomycin as long as the rate is slow Scheduled Albuterol HFA (Proair HFA) 8.5 Gm Hfa.aer.ad 2 PUFFS INHALATION Q4H Amlodipine (Amlodipine) 5 Mg Tablet 5 MG PO DAILY Aspirin Chew (Aspirin Chew) 81 Mg Chew 81 MG PO DAILY Atorvastatin Calcium (Atorvastatin Calcium) 20 Mg Tablet 20 MG PO HS Azithromycin (Zithromax (Z-Tyree)) 250 Mg Tablet 250 MG PO DIRECTED Take two tablets by mouth on day 1, then take one tablet daily on days 2 through 5. Beclomethasone Dipropionate (Qvar) 8.7 Gm Aer.w.adap 1 PUFF INHALATION BID Clopidogrel (Clopidogrel) 75 Mg Tablet 75 MG PO DAILY Glipizide (Glipizide) 5 Mg Tablet 5 MG PO BIDAC Insuln Asp Prt/Insulin Aspart (NovoLOG 70/30 U100 Insulin Flexpen) 100 Unit/Ml Unit 12 UNIT SUBQ BID Isosorbide MN ER (Isosorbide MN ER) 30 Mg Tab.er.24h 30 MG PO DAILY Ketoconazole (Nizoral) 120 Ml Shampoo 120 ML TOP BID Lisinopril (Lisinopril) 5 Mg Tablet 5 MG PO DAILY Metformin (Glucophage) 1,000 Mg Tablet 1,000 MG ORAL BID Metoprolol Tartrate (Metoprolol Tartrate) 75 Mg Tablet 75 MG PO BID Prednisone (PredniSONE) 20 Mg Tablet 40 MG PO DAILY Sertraline HCl (Sertraline) 50 Mg Tablet 25 MG PO DAILY Scheduled PRN Albuterol Sulfate (Ventolin HFA Inhaler) 200 Puff/18 Gm Inhaler 1-2 PUFFS INH DIRECTED PRN PRN For Wheezing Benzonatate (Benzonatate) 100 Mg Capsule 100 MG PO TID PRN PRN For Cough Nitroglycerin SL (Nitroglycerin SL) 0.4 Mg Tab.subl 0.4 MG SL Q5MIN PRN PRN For Chest Pain General Time Seen by MD: 18:54 Chief Complaint Shortness of breath Hx Obtained From: Patient Arrived By: Walk-in Sudden in Onset?: No Onset Occurred: 5 - 8 hours ago Symptom Duration: Since onset Location: : None Recent Healthcare: Recent doctor visit Similar Sx Previous: Yes Past Medical History Past Medical History Notes: PCP: Dr. James Frequent hospital admissions for COPD exacerbations Often refuses treatment and is abusive to staff. Often leaves AMA. 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, echo August 2013 with an decreased left ventricular ejection fraction History of nonadherence to medical treatment Chronic venous insufficiency Hx cellulitis Reports: COPD, Congestive heart failure, Diabetes mellitus, Hyperlipidemia, Hypertension Reports: Obesity Past Surgical History None Family History Reports: Diabetes mellitus Smoking History Former Smoker Social History Patient is currently living in his car Alcohol Use: Denies alcohol use Drug Use: Denies drug use Other Social History: Poor social support, Frequent ED visitor, Homeless 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 GI: Denies: Abdominal pain Physical Exam Initial Vital Signs Vital Signs (First) Date Time Temp Pulse Resp B/P Pulse Ox O2 Delivery O2 Flow Rate FiO2 09/30/16 16:47 36.4 133 32 171/91 92 Nasal Cannula 2 Initial VS: Reviewed, Vital signs abnormal Abdomen / GI: Soft, Non-tender Skin: Warm, Dry, No cyanosis Neurologic: Alert, Oriented, Nonfocal Psychiatric: Mood/affect normal, Behavior normal, Normal thought content General/Constitutional: Awake, Alert Appearance / Presentation: Positive: Obese will not undress, sitting in wheelchair at bedside Neck: Supple, No JVD Respiratory / Chest: No rales, No rhonchi, No wheezing decreased airation bilaterally Cardiovascular: Regular rhythm, Heart sounds NL, No murmurs Heart Rate / Rhythm: Positive: Tachycardia ENT: Airway patent, Mucous membranes moist Lower Extremity / Pelvis / MS: Neurologic intact, Vascular intact bilateral 1+ lower extremity edema with erythema, equal Head / Eyes: Normocephalic, PERRL Conjunctiva / Sclera: Positive: Discharge L..., Discharge R... Interpretation & Diagnostics Lab Results Interpretation Result Diagram: 09/30/16191909/30/161919 Test 09/30/16 19:20 White Blood Count 11.6th/mm3 (3.8-10.1) Red Blood Count 4.53mil/mm3 (4.40-5.80) Hemoglobin 13.0g/dL (13.8-17.2) Hematocrit 39.3% (41.0-50.0) Mean Corpuscular Volume 86.8fL (81-100) Mean Corpuscular Hemoglobin 28.7pg (27.0-35.0) Mean Corpuscular Hemoglobin Concent 33.1% (32.0-37.0) Red Cell Distribution Width 14.8% (12.3-15.4) Platelet Count 290bil/L (150-400) Neutrophils (%) (Auto) 80.9% (40-74) Lymphocytes (%) (Auto) 5.7% (14-46) Monocytes (%) (Auto) 11.7% (4-12) Eosinophils (%) (Auto) 0.8% (0-5) Basophils (%) (Auto) 0.3% (0-3) Sodium Level 135mEq/L (134-144) Potassium Level 4.0mEq/L (3.5-5.2) Chloride Level 97mEq/L (97-108) Carbon Dioxide Level 24mmol/L (18-29) Blood Urea Nitrogen 13mg/dL (8-27) Creatinine 0.74mg/dL (0.76-1.27) Estimat Glomerular Filtration Rate 112mL/min (>59) Glucose Level 270mg/dL (60-99) Calcium Level 8.5mg/dL (8.5-10.1) Magnesium Level 1.8mg/dL (1.6-2.6) Troponin T 0.079ug/L (0.0-0.011) Procalcitonin 0.15ng/mL (0.00-0.08) Hold Ramires Top Tube Received (Received) X-Ray Chest Interpretation Chest Xray Interpretation: IMPRESSION: Left upper lobe pneumonia. Dictated by: Cesar Medeiros M.D. on 09/30/2016 at 19:32 Approved by: Cesar Medeiros M.D. on 09/30/2016 at 19:34 View: Portable Interpretation / Wet Read by: Interpret - Radiologist Reviewed Previous Films: Findings are new Re-Eval/Medical Decision Med Decision/Clinical Course This patient presents with increasing shortness of breath today. He denied other symptoms. He is noncompliant and homeless. His evaluation revealed pneumonia which could explain his symptoms. The patient was tachycardiac however that improved with some hydration. A partial list of differential diagnoses considered were COPD exacerbation, pneumonia, congestive heart failure , acute coronary syndrome, and pulmonary embolus. The patient was feeling improved evaluation revealed pneumonia. Upon admission an elevated troponin level was called me, I did not order this test. The patient does have history of heart disease however is noncompliant and is not a candidate for intervention. I did not order a troponin given the patient had no chest pain and with his prior end STEMI he did have chest pain. His elevated troponin could be related to increased work of breathing. As far as evaluating for pulmonary embolus the patient has swelling in his legs and some chronic inflammatory changes, he denies any new changes. The patient would also not remove his clothing safely be examined further and we cannot obtain ultrasound due to his unwillingness to cooperate. Source of Hx: Old records Re-Evaluation/Progress : Time of Eval: 20:24 Patient Status: Condition improved Re-Evaluation/Progress Note: Rechecked the patient after breathing treatments. He is improved. Informed the patient that he has pneumonia. Discussed lab results. Patient will be admitted to the hospital for further care. Patient understands and agrees with this plan. All questions were addressed. Consultation : Referral / Consult Name: Kimmy Barnett MD Consulted With: Hospitalist Call Returned at: 20:32 Substation Design Draftsperson: Will see patient, Agrees with eval, Agrees with plan, Accepts admit Note: Spoke with Dr. Barnett, hospitalist, who agrees to accept admit. Counseled Regarding: Diagnosis, Lab results, Need for admission Discharge & Departure Impression: Primary Impression: Left upper lobe pneumonia Pneumonia type: due to unspecified organism Qualified Code: J18.9 - Pneumonia, unspecified organism Additional Impression: COPD exacerbation Disposition: ADMITTED TO HOSPITAL Discharge Condition All VS Reviewed: Yes Condition: Stable Referrals: Yumiko James MD (PCP) Scribe Attestation Portions of this note were transcribed by Zuleika Mayberry. I, Dr. Quintero personally performed the history, physical exam and medical decision-making; I reviewed and confirmed the accuracy of the information in the transcribed note. Signed by: Raimundo Peralta, 09/30/2016 [id number] copies to: Yumiko James MD, Jena M MD Sep 30, 2016 18:55 Zuleika Mayberry Sep 30, 2016 19:08
[2016-09-30] MEDS ORDERED: Albuterol 2.5 mg/3 mL Inhalation Solution NEB ONE (19:05)
[2016-09-30] MEDS ORDERED: 0.9% Sodium Chloride 500 ML IV ONE (19:05)
[2016-09-30] MEDS ORDERED: predniSONE 20 mg Tablet PO ONE (19:05)
[2016-09-30] MEDS ORDERED: Albuterol-Ipratropium 3 mL Inhalation Solution NEB ONE (19:05)
[2016-09-30 19:33] VITALS: PULSE 119; RESP 20; O2SAT 96
--- NOTE | 2016-09-30 19:36 | DRSVH ---
PROCEDURE: X-RAY CHEST, TWO VIEWS ([id number]) INDICATIONS: short of breath TECHNIQUE: 2 views of the chest were acquired. COMPARISON: [facility], CR, XR CHEST 2VW, 09/27/2016, 15:44. FINDINGS: Surgical changes and devices: None. Lungs and pleura: Airspace infiltrates in the left upper lobe, consistent with No pleural effusions o r pneumothorax. Mediastinum: Mediastinal contours are normal. Heart size is normal. Bones and chest wall: No suspicious bony abnormalities. Soft tissues appear unremarkable. IMPRESSION: Left upper lobe pneumonia. Dictated by: Cesar Medeiros M.D. on 09/30/2016 at 19:32 Approved by: Cesar Medeiros M.D. on 09/30/2016 at 19:34
[2016-09-30 19:44] LABS: BASOPHILS % (AUTO) 0.3 % (0-3); EOSINOPHILS % (AUTO) 0.8 % (0-5); MONOCYTES % (AUTO) 11.7 % (4-12); Mean Corpuscular Hemoglobin 28.7 pg (27.0-35.0); Mean Corpuscular Volume 86.8 fL (81-100); NEUTROPHILS % (AUTO) 80.9 % (40-74); Platelet Count 290 bil/L (150-400)
[2016-09-30] MEDS ORDERED: Azithromycin Inj 500 MG in Dextrose 5% w/Vial Mate 250 ML IV ONE (20:15)
[2016-09-30] MEDS ORDERED: cefTRIAXone Inj 2,000 MG in Dextrose 5% Minibag Plus 50 ML IV ONE (20:15)
[2016-09-30] MEDS ORDERED: Albuterol 2.5 mg/3 mL Inhalation Solution NEB PRN ×2 (20:45→22:40)
[2016-09-30 21:42] LABS: Magnesium 1.8 mg/dL (1.6-2.6)
[2016-09-30] MEDS ORDERED: Vancomycin Inj 2,000 MG in 0.9% Sodium Chloride 500 ML IV ONE (21:45)
[2016-09-30] MEDS: levoFLOXacin Inj 750 MG in IV Premix 1 EACH IV SCH (21:47)
[2016-09-30 21:56] LABS: TROPONIN T 0.079 ug/L (0.0-0.011)
[2016-09-30 22:09] VITALS: BP 140/78; PULSE 108; RESP 18; O2SAT 94
[2016-09-30] MEDS ORDERED: Glucose 40% Oral Gel 15 Gm Tube PO PRN (22:40)
--- NOTE | 2016-09-30 22:49 | PCM.HPMED ---
Subjective Date of Service Sep 30, 2016 Primary Provider: Admitting Physician: Kimmy Barnett MD Primary Care Physician: Yumiko James MD Attending Physician: Kimym Barnett MD Admit Status: From the Emergency Department, Full Admit, Remote Telemetry Chief Complaint: Increased cough and wheezing History of Present Illness: Is a 66-year-old male who has a history of noncompliance with history of COPD he is also homeless and lives in his car for now. Patient was recently hospitalized here 09/07/2016 and was found to have elevated troponins suggesting non-STEMI. He was seen by cardiology at that time. He was deemed because of his behavior not a great candidate for coronary angiogram. Patient is usually not agreeable to such procedures either. Cardiopulmonary Supervisor recommends that if he shows compliancy with his heart medications for at least for a few months and we can consider the idea of performing a coronary angiogram. Patient was evaluated here today and of significance 2 view chest x-ray revealed left upper lobe pneumonia. White count is noted to be 11.6 he does have a possible history of atrial fibrillation and heart rate was noted to be 133 and 92% O2 sat on 2 L of stool cannula upon presentation here. I cannot locate a 12-lead EKG at this time done today. He denies any fevers or chills. He denies any chest pain. Review of Systems: Review of systems are reviewed and are negative except for as in history of present illness. Allergies Coded Allergies: vancomycin (Verified Allergy, Intermediate, Rash,Itching,, 09/24/16) Per Q: Pt should tolerates vancomycin as long as the rate is slow Home Medications Scheduled Albuterol HFA (Proair HFA) 8.5 Gm Hfa.aer.ad 2 PUFFS INHALATION Q4H Amlodipine (Amlodipine) 5 Mg Tablet 5 MG PO DAILY Aspirin Chew (Aspirin Chew) 81 Mg Chew 81 MG PO DAILY Atorvastatin Calcium (Atorvastatin Calcium) 20 Mg Tablet 20 MG PO HS Azithromycin (Zithromax (Z-Tyree)) 250 Mg Tablet 250 MG PO DIRECTED Take two tablets by mouth on day 1, then take one tablet daily on days 2 through 5. Beclomethasone Dipropionate (Qvar) 8.7 Gm Aer.w.adap 1 PUFF INHALATION BID Clopidogrel (Clopidogrel) 75 Mg Tablet 75 MG PO DAILY Glipizide (Glipizide) 5 Mg Tablet 5 MG PO BIDAC Insuln Asp Prt/Insulin Aspart (NovoLOG 70/30 U100 Insulin Flexpen) 100 Unit/Ml Unit 12 UNIT SUBQ BID Isosorbide MN ER (Isosorbide MN ER) 30 Mg Tab.er.24h 30 MG PO DAILY Ketoconazole (Nizoral) 120 Ml Shampoo 120 ML TOP BID Lisinopril (Lisinopril) 5 Mg Tablet 5 MG PO DAILY Metformin (Glucophage) 1,000 Mg Tablet 1,000 MG ORAL BID Metoprolol Tartrate (Metoprolol Tartrate) 75 Mg Tablet 75 MG PO BID Prednisone (PredniSONE) 20 Mg Tablet 40 MG PO DAILY Sertraline HCl (Sertraline) 50 Mg Tablet 25 MG PO DAILY Scheduled PRN Albuterol Sulfate (Ventolin HFA Inhaler) 200 Puff/18 Gm Inhaler 1-2 PUFFS INH DIRECTED PRN PRN For Wheezing Benzonatate (Benzonatate) 100 Mg Capsule 100 MG PO TID PRN PRN For Cough Nitroglycerin SL (Nitroglycerin SL) 0.4 Mg Tab.subl 0.4 MG SL Q5MIN PRN PRN For Chest Pain PMH Past Medical History Notes: PCP: Dr. James Frequent hospital admissions for COPD exacerbations Often refuses treatment and is abusive to staff. Often leaves AMA. 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, echo August 2013 with an decreased left ventricular ejection fraction History of nonadherence to medical treatment Chronic venous insufficiency Hx cellulitis Reports: COPD, Congestive heart failure, Diabetes mellitus, Hyperlipidemia, Hypertension Reports: Obesity Past Surgical History None Social History Hx Alcohol Use: No Hx Substance Use: No Hx Tobacco Use: Yes (quit 9 years ago) Smoking Status: Former Smoker Living Arrangement: Alone Homeless Exam Vital Signs Vital Sign - Last Date Time Temp Pulse Resp B/P Pulse Ox O2 Delivery O2 Flow Rate FiO2 09/30/16 22:09 36.6 108 18 140/78 94 Nasal Cannula 3.00 Exam Constitutional: Disheveled appearing male Head: Normocephalic atraumatic Eyes: PERRLA DC EOMI Neck: No adenopathy Chest reveals diffuse rhonchi Cor: Regular regular rate and rhythm S1-S2 Abdomen soft nontender bowel sounds present Skin: Bilateral lower extremity stasis dermatitis Extremities: 1+ lower extremity edema Neuro: Alert and oriented 3, motor strength is intact bilaterally Lab and Diagnostics Result Diagram: 09/30/16191909/30/161919 X-Rays, CTs and MRIs PROCEDURE: X-RAY CHEST, TWO VIEWS ([id number]) INDICATIONS: short of breath TECHNIQUE: 2 views of the chest were acquired. COMPARISON: [facility], CR, XR CHEST 2VW, 09/27/2016, 15:44. FINDINGS: Surgical changes and devices: None. Lungs and pleura: Airspace infiltrates in the left upper lobe, consistent with No pleural effusions or pneumothorax. Mediastinum: Mediastinal contours are normal. Heart size is normal. Bones and chest wall: No suspicious bony abnormalities. Soft tissues appear unremarkable. IMPRESSION: Left upper lobe pneumonia. Dictated by: Cesar Medeiros M.D. on 09/30/2016 at 19:32 Approved by: Cesar Medeiros M.D. on 09/30/2016 at 19:34 12-lead ECG Pending at the time of this dictation Assessment & Plan # HERMELINDA pneumonia,acute,poa This is care associated pneumonia given his frequent ER visits and recent hospitalization here in August. We will proceed with a doing IV cefepime, IV vancomycin, IV Levaquin, IV metronidazole Check sputum studies along with PCR respiratory, urine for Legionella and pneumococcus # COPD exacerbation, present on admission, acute 3 with by mouth prednisone, O2 supplementation as needed Dual nebs 4 times a day while awake and albuterol nebs every 2 hours when necessary # History of non-STEMI , present on admission Check serial troponins Check 12-lead EKG Encouraged compliance with cardiac medications # Type II diabetes, chronic, present on admission Placed on subcutaneous insulin protocol and check 4 times a day blood sugars # DVT prophylaxis Placed on subcutaneous anticoagulation # CODE status Patient is full code Time spent 60 minutes Kmimy Barnett MD Sep 30, 2016 22:49
[2016-09-30 23:23] LABS: APPEARANCE,URINE CLEAR (CLEAR,HAZY); COLOR,URINE STRAW (YELLOW)
[2016-09-30 23:24] LABS: OCCULT BLOOD,URINE NEGATIVE (NEGATIVE); UROBILINOGEN,URINE NORMAL (NORMAL)
[2016-09-30 23:55] VITALS: BP 144/68; PULSE 112; RESP 21; O2SAT 91
[2016-10-01] VITALS (14 sets, daily range): BP systolic 100–165; BP diastolic 51–79; PULSE 81–110; RESP 18–22; O2SAT 90–96
[2016-10-01] MEDS ORDERED: Albuterol-Ipratropium 3 mL Inhalation Solution NEB SCH (00:30)
[2016-10-01] MEDS ORDERED: Nitroglycerin 2% 1 Gm Ointment TOPICAL SCH (00:46)
[2016-10-01] MEDS: Heparin 5,000 Unit/mL Inj SUBQ SCH ×4 (01:21→23:21)
[2016-10-01] MEDS: predniSONE 20 mg Tablet PO SCH ×2 (01:21→10:07)
[2016-10-01] MEDS: metroNIDAZOLE Inj 500 MG in IV Premix 1 EACH IV SCH ×4 (02:51→21:55)
--- NOTE | 2016-10-01 03:00 | NUR ---
admit to floor from ED 2300 Non-compliant with care. Refusing both physical and skin assessment. Unwilling to wear hospital gown or change out of clothes. IV ABO infusing, vitals stable. Patient hungry, sandwich provided. Prefers to sit in chair all night. Denies pain on arrival to floor, then when up ambulating to the bathroom he had sudden onset chest pain he rated "worse than a 10". EKG obtained both prior to pain onset and during chest pain. Dr Barnett notified and reviewed. IV MS 2mg given, Nitro paste applied. Chest pain resolved.
[2016-10-01] MEDS: levoFLOXacin Inj 750 MG in IV Premix 1 EACH IV SCH ×2 (04:45→23:12)
[2016-10-01] MEDS: Albuterol-Ipratropium 3 mL Inhalation Solution NEB SCH ×4 (07:51→20:25)
[2016-10-01] MEDS ORDERED: Vancomycin 1 Gm/200 mL NS Premix IV SCH (08:00)
[2016-10-01] MEDS ORDERED: Vancomycin Dose per Pharmacist XX SCH (08:30)
[2016-10-01] MEDS: Insulin LISPRO 300 Unit/3 mL Inj SUBQ SCH ×4 (09:48→23:22)
--- NOTE | 2016-10-01 09:49 | NUR ---
Social Work note - Initial Assessment Vincent High is a 66 yr old who was admitted for pneumonia. EMR reviewed: Pt has Medicare, His PCP is Dr James at [facility]. Pt has DPOA - Sister Radha Zarate - Paperwork in EMR. Readmit score is not available. See attached CM initial assessment. MUSHROOM SPAWN MAKER met with pt - Pt well known from previous admissions. Pt has multiple ED visits and CHANI reports. Pt is homeless, has been living in his car for the past 10+ years. He has a nebulizer and O2. He has Chronic lung disease and is living on Social Security and L&I. He makes about $1600 per month but in the past has refused to spend money on housing because he states that "they charge too much". Pt is open with services from [facility] - Yin Olivares [phone] DANA who is working on stabilization - housing and close PCP follow up. Pt is willing to work with CM but identifies multiple barriers to change and is resistant to help at times. Pt is wheelchair bound at baseline. He is getting weaker. 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 Pt plans to dc back to his car, will continue to work with [facility] care and [employer]HRO[employer] SPAWN [employer]KER will continue to follow. MUSHROOM SPAWN MAKER updated CHANI. Plan: Return to homelessness, living in his car with nebulizer, wheelchair and Home O2. DULCE MARIA Acosta Addendum: 10/01/16 at 0959 by AMBER QUIROGA SS Amended: Links added.
[2016-10-01] MEDS: Fluticasone 100 mCg Inhaler INHALATION SCH ×2 (10:06→20:34)
[2016-10-01] MEDS: Cefepime Inj 2,000 MG in Dextrose 5% Minibag Plus 50 ML IV SCH ×2 (10:06→23:11)
--- NOTE | 2016-10-01 10:35 | NUR ---
Casemanagement- IMM given and explained to patient. Patient signed. Harriet PARKINSON
[2016-10-01] MEDS: Insulin ASPART 70/30 FlexPen 300 Unit/3 mL Inj SUBQ SCH ×2 (13:50→23:21)
--- NOTE | 2016-10-01 13:56 | PCM.PNMED ---
Subjective Date of Service Oct 01, 2016 Subjective Continues to have dyspnea but with slight improvement. Afebrile. Continues to have elevated troponin, denies chest pain Exam Vital Signs Vital Sign - Last Date Time Temp Pulse Resp B/P Pulse Ox O2 Delivery O2 Flow Rate FiO2 10/01/16 13:07 36.6 90 22 135/64 94 Nasal Cannula 3.00 Intake and Output 09/30/16 09/30/16 10/01/16 Cumulative From/Thru 15:00 23:00 07:00 09/30/16 16:47 - 10/01/16 06:24 Intake Total 500 ml 600 ml 1100 ml Output Total 680 ml 680 ml Balance 500 ml -80 ml 420 ml Intake Oral 600 ml 600 ml IV Total 500 ml 500 ml Output Urine Total 680 ml 680 ml # Bowel Movements 0 0 Exam Constitutional: Disheveled appearing male Head: Normocephalic atraumatic Eyes: PERRLA DC EOMI Neck: No adenopathy Chest reveals diffuse rhonchi Cor: Regular regular rate and rhythm S1-S2 Abdomen soft nontender bowel sounds present Skin: Bilateral lower extremity stasis dermatitis Extremities: 1+ lower extremity edema Neuro: Alert and oriented 3, motor strength is intact bilaterally IVs and Medications Medications Reviewed: Medications were reviewed in detail Lab and Diagnostics Result Diagram: 09/30/16191909/30/161919 X-Rays, CTs and MRIs PROCEDURE: X-RAY CHEST, TWO VIEWS ([id number]) INDICATIONS: short of breath TECHNIQUE: 2 views of the chest were acquired. COMPARISON: [facility], CR, XR CHEST 2VW, 09/27/2016, 15:44. FINDINGS: Surgical changes and devices: None. Lungs and pleura: Airspace infiltrates in the left upper lobe, consistent with No pleural effusions or pneumothorax. Mediastinum: Mediastinal contours are normal. Heart size is normal. Bones and chest wall: No suspicious bony abnormalities. Soft tissues appear unremarkable. IMPRESSION: Left upper lobe pneumonia. Dictated by: Cesar Medeiros M.D. on 09/30/2016 at 19:32 Approved by: Cesar Medeiros M.D. on 09/30/2016 at 19:34 Assessment & Plan # Acute on chronic hypoxic and hypercapnic respiratory failure due to COPD exacerbation, present on admission, acute Continue with prednisone, O2 supplementation as needed Dual nebs 4 times a day while awake and albuterol nebs every 2 hours when necessary # HERMELINDA pneumonia/HCAP,acute,poa This is care associated pneumonia given his frequent ER visits and recent hospitalization here in August. Started on IV cefepime, IV vancomycin, IV Levaquin, IV metronidazole. PCR respiratory, Flu Ag ,urine for Legionella and pneumococcus negative blood culture pending # Suspected Demand ischemia /NSTEMI , present on admission Check serial troponins 12-lead EKG no ST-T wave changes Encouraged compliance with cardiac medications -c/w ASA,atorvastatin,metoprolol,Imdur # Type II diabetes, chronic, present on admission Placed on subcutaneous insulin protocol and check 4 times a day blood sugars -Resume home insulin 12 units twice a day -Hemoglobin A1c 10.5, consistent with uncontrolled likely due to noncompliant -Resume home glipizide # Medication noncompliance, chronic # DVT prophylaxis Placed on subcutaneous anticoagulation # CODE status Patient is full code disposition;discharge in 2-3 days Hiram Savage MD Oct 01, 2016 13:56
--- NOTE | 2016-10-01 18:00 | NUR ---
Assessment / attitude / shower Pt continues to be difficult to assess and communicate with. Spoke with pt for a long time today and found that he is very hopeless, helpless, and not in control. Pt has very dry rude sense of humor. He appreciates everything explained to him, (even though he knows) always explain what you have to give him or are going to do with him. He is in the hospital frequently so he has had these medications and understands what they are for and their importance. Pt refuses assessments often. It was noticed today that he was very embarrassed by his skin etc. RN spoke with him for a while and pt did agree to shower. COATING AND BAKING OPERATOR and RN helped clean pt in shower and placed him in fresh clothing so that his clothing could be washed. Pants were stained with feces and had some feces on them as well as smelled strongly of urine. Pt appreciates the curtains opened at all times! Doesn't like closed in! He also lane NOT want any injections into his ABD; he only wants injections in his upper arms or buttock. Care continues
[2016-10-02] VITALS (10 sets, daily range): BP systolic 97–143; BP diastolic 62–77; PULSE 67–103; RESP 16–22; O2SAT 90–95
[2016-10-02] MEDS: metroNIDAZOLE Inj 500 MG in IV Premix 1 EACH IV SCH ×3 (03:06→14:30)
--- NOTE | 2016-10-02 05:13 | NUR ---
Infusions Pt very combative with care in evening, expresses frustration and uses rude, aggressive language but allows care as needed. New IV started for antibiotics, stated he would remove IV if not stopped; consulted with pharmacist for most rapid allowable infusion rates for antibiotics, pt agreed to infusion at faster rate. Refuses some assessments and BG checks, likes to be in charge of care. SOB with exertion, O2 via NC prn. Declines move to bed, prefers to sit in wheelchair, pillow in chair for skin care. States intent to leave in am. Hourly rounding ongoing.
[2016-10-02] MEDS: Albuterol-Ipratropium 3 mL Inhalation Solution NEB SCH ×4 (05:18→19:51)
[2016-10-02] MEDS ORDERED: Vancomycin Serum Trough XX ONE (07:30)
[2016-10-02] MEDS: Fluticasone 100 mCg Inhaler INHALATION SCH ×2 (07:56→23:20)
[2016-10-02] MEDS: Insulin LISPRO 300 Unit/3 mL Inj SUBQ SCH ×4 (07:56→23:22)
[2016-10-02] MEDS: predniSONE 20 mg Tablet PO SCH (07:58)
[2016-10-02] MEDS: Insulin ASPART 70/30 FlexPen 300 Unit/3 mL Inj SUBQ SCH ×2 (07:59→23:21)
[2016-10-02] MEDS: Heparin 5,000 Unit/mL Inj SUBQ SCH ×3 (07:59→23:23)
[2016-10-02] MEDS: Isosorbide Mononitrate 30 mg ER24 Tablet PO SCH (08:00)
[2016-10-02] MEDS: Cefepime Inj 2,000 MG in Dextrose 5% Minibag Plus 50 ML IV SCH (09:24)
[2016-10-02 10:06] LABS: BASOPHILS % (AUTO) 0.2 % (0-3); EOSINOPHILS % (AUTO) 0.2 % (0-5); MONOCYTES % (AUTO) 7.9 % (4-12); Mean Corpuscular Hemoglobin 28.6 pg (27.0-35.0); Mean Corpuscular Volume 87.4 fL (81-100); NEUTROPHILS % (AUTO) 86.7 % (40-74); Platelet Count 344 bil/L (150-400)
[2016-10-02 10:39] LABS: Magnesium 1.7 mg/dL (1.6-2.6); Phosphorus 3.5 mg/dL (2.5-4.9)
[2016-10-02 10:44] LABS: TROPONIN T 0.108 ug/L (0.0-0.011)
--- NOTE | 2016-10-02 12:23 | NUR ---
Respiratory Pt inappropriate, rude, combative, vulgar.
--- NOTE | 2016-10-02 16:11 | PCM.PNMED ---
Subjective Date of Service Oct 02, 2016 Subjective Breathing slightly better today. Afebrile Exam Vital Signs Vital Sign - Last Date Time Temp Pulse Resp B/P Pulse Ox O2 Delivery O2 Flow Rate FiO2 10/02/16 16:08 Nasal Cannula 2.00 10/02/16 12:24 36.1 69 18 109/75 92 Intake and Output 10/01/16 10/01/16 10/02/16 Cumulative From/Thru 14:59 22:59 06:59 09/30/16 16:47 - 10/02/16 05:27 Intake Total 1405 ml 914 ml 3419 ml Output Total 740 ml 770 ml 2190 ml Balance 665 ml 144 ml 1229 ml Intake Oral 1155 ml 400 ml 2155 ml IV Total 250 ml 514 ml 1264 ml Output Urine Total 740 ml 770 ml 2190 ml # Bowel Movements 2 0 2 Exam Constitutional: Disheveled appearing male Head: Normocephalic atraumatic Eyes: PERRLA DC EOMI Neck: No adenopathy Chest reveals diffuse rhonchi Cor: Regular regular rate and rhythm S1-S2 Abdomen soft nontender bowel sounds present Skin: Bilateral lower extremity stasis dermatitis Extremities: 1+ lower extremity edema Neuro: Alert and oriented 3, motor strength is intact bilaterally IVs and Medications Medications Reviewed: Medications were reviewed in detail Lab and Diagnostics Result Diagram: 10/02/16 1000 10/02/16 1000 X-Rays, CTs and MRIs PROCEDURE: X-RAY CHEST, TWO VIEWS ([id number]) INDICATIONS: short of breath TECHNIQUE: 2 views of the chest were acquired. COMPARISON: [facility], CR, XR CHEST 2VW, 09/27/2016, 15:44. FINDINGS: Surgical changes and devices: None. Lungs and pleura: Airspace infiltrates in the left upper lobe, consistent with No pleural effusions or pneumothorax. Mediastinum: Mediastinal contours are normal. Heart size is normal. Bones and chest wall: No suspicious bony abnormalities. Soft tissues appear unremarkable. IMPRESSION: Left upper lobe pneumonia. Dictated by: Cesar Medeiros M.D. on 09/30/2016 at 19:32 Approved by: Cesar Medeiros M.D. on 09/30/2016 at 19:34 Assessment & Plan # Acute on chronic hypoxic and hypercapnic respiratory failure due to COPD exacerbation, present on admission, acute Continue with prednisone, O2 supplementation as needed Dual nebs 4 times a day while awake and albuterol nebs every 2 hours when necessary # HERMELINDA pneumonia/HCAP,acute,poa This is care associated pneumonia given his frequent ER visits and recent hospitalization here in August. Started on IV cefepime, IV vancomycin, IV Levaquin, IV metronidazole. will de- escalate the antibiotics to Levaquin only given infectious workup is negative so far PCR respiratory, Flu Ag ,urine for Legionella and pneumococcus negative blood culture negative # Suspected Demand ischemia /NSTEMI , present on admission Check serial troponins 12-lead EKG no ST-T wave changes Encouraged compliance with cardiac medications -c/w ASA,atorvastatin,metoprolol,Imdur # Type II diabetes, chronic, present on admission Placed on subcutaneous insulin protocol and check 4 times a day blood sugars -Resume home insulin 12 units twice a day -Hemoglobin A1c 10.5, consistent with uncontrolled likely due to noncompliant -Resume home glipizide # Medication noncompliance, chronic # DVT prophylaxis Placed on subcutaneous anticoagulation # CODE status DNR/DNI verified with patient, he also has a signed living will disposition;discharge in 1-2 days VTE Mechanical Devices: Intermittant Pneumatic CD Resuscitation Status: DNR/DNI:Do Not Resuscitate/Intubate Hiram Savage MD Oct 02, 2016 16:11
--- NOTE | 2016-10-02 17:03 | NUR ---
Refusals / Falls risk pt is very rude and verbally abusive to staff at one minute and then polite and thankful the next minute. Pt refuses IV antibiotics and or any injection sat this time. Pt states that he is done no more IV antibiotics. Pt continues to refuse to use chair [place] and refuses to use bed. Will sit in wheel chair on pillow only. Pt stands and ambulates with unsteady gait to bathroom as well but again refuses to use [place] chair alarm and is not appropriately using his call light. Pt states he would rather than use the alarm and depends on us making it here in time to use the bathroom. Care continues
[2016-10-02] MEDS: levoFLOXacin Inj 750 MG in IV Premix 1 EACH IV SCH (23:21)
[2016-10-03] VITALS (8 sets, daily range): BP systolic 119–120; BP diastolic 75–76; PULSE 75–108; RESP 20; O2SAT 86–96
--- NOTE | 2016-10-03 03:58 | NUR ---
Safety Pt continues to refuse alarms and makes own way to BR without using call light, free from falls so far. Pt likes to have control over care, has been appropriate and polite all through shift, using call light appropriately at all times except for assistance to BR. Observed sleeping better tonight than last night; refuses to go to bed, sleeps sitting up in wheelchair on pillow. Reports that his buttocks are getting sore, will not allow visual assessment. Accepted all medications including IV antibiotics and insulin injections and BG checks. Hourly rounding ongoing.
[2016-10-03] MEDS: Insulin LISPRO 300 Unit/3 mL Inj SUBQ SCH ×2 (07:03→12:00)
[2016-10-03] MEDS: Albuterol-Ipratropium 3 mL Inhalation Solution NEB SCH ×2 (07:43→12:16)
[2016-10-03] MEDS: predniSONE 20 mg Tablet PO SCH (08:09)
[2016-10-03] MEDS: Isosorbide Mononitrate 30 mg ER24 Tablet PO SCH (08:10)
[2016-10-03] MEDS: Fluticasone 100 mCg Inhaler INHALATION SCH (08:10)
[2016-10-03] MEDS: Heparin 5,000 Unit/mL Inj SUBQ SCH (08:11)
[2016-10-03] MEDS: Insulin ASPART 70/30 FlexPen 300 Unit/3 mL Inj SUBQ SCH (08:12)
[2016-10-03 11:48] LABS: BASOPHILS % (AUTO) 0.4 % (0-3); EOSINOPHILS % (AUTO) 1.1 % (0-5); MONOCYTES % (AUTO) 11.9 % (4-12); Mean Corpuscular Hemoglobin 28.7 pg (27.0-35.0); Mean Corpuscular Volume 88.6 fL (81-100); NEUTROPHILS % (AUTO) 75.4 % (40-74); Platelet Count 353 bil/L (150-400)
[2016-10-03 12:06] LABS: Magnesium 1.9 mg/dL (1.6-2.6); Phosphorus 4.3 mg/dL (2.5-4.9)
--- NOTE | 2016-10-03 12:45 | NUR ---
Fredo persaud MD informing MD of O2 on 3L stat at 94% and elevated Troponin at 0.101. Awaiting response.
--- NOTE | 2016-10-03 13:01 | PCM.DIMED ---
Discharge Instructions Date of Service Oct 03, 2016 Dates of Hospitalization Sep 30, 2016 at 21:10 Discharge Diagnosis Discharge Diagnosis # Acute on chronic hypoxic and hypercapnic respiratory failure due to COPD exacerbation, present on admission, acute # HERMELINDA pneumonia/HCAP,acute,poa # Suspected Demand ischemia /NSTEMI , present on admission # Type II diabetes, chronic, present on admission,uncontrolled # Medication noncompliance, chronic Diet Low fat, Low Sodium, Heart Healthy, Diabetic Activity Limited until seen by PCP Call your provider Fever or Chills, Shortness of breath, Bleeding, Chest pain, Vomitting, Excessive diarrhea, Weakness (unilateral) Patient Instructions You were hospitalized due to COPD exacerbation and pneumonia. Please take Augmentin for 4 more days. Please take prednisone 30 mg daily for 3 more days. Please follow-up with PCP in 1 week. Follow-up plan Please follow-up with PCP in 1 week. Follow-up Provider: Yumiko James MD Follow-up with PCP in: 1 week Hiram Savage MD Oct 03, 2016 13:00
[2016-10-03] MEDS ORDERED: AMOX-366 PO (13:08)
--- NOTE | 2016-10-03 13:46 | PCM.DC.MED ---
Discharge Summary Date of Service Oct 03, 2016 Dates of Hospitalization Date of Hospital Admission Sep 30, 2016 at 21:10 Date of Discharge: Oct 03, 2016 Providers: Admitting Physician: Kimmy Barnett MD Primary Care Physician: Yumiko James MD Attending Physician: Kimmy Barnett MD Diagnosis at Time of Discharge Diagnosis at Time of Discharge # Acute on chronic hypoxic and hypercapnic respiratory failure due to COPD exacerbation, present on admission, acute # HERMELINDA pneumonia/HCAP,acute,poa # Suspected Demand ischemia /NSTEMI , present on admission # Type II diabetes, chronic, present on admission,uncontrolled # Medication noncompliance, chronic Consultations none Procedures XRay, CTs & MRIs PROCEDURE: X-RAY CHEST, TWO VIEWS ([id number]) INDICATIONS: short of breath TECHNIQUE: 2 views of the chest were acquired. COMPARISON: [facility], CR, XR CHEST 2VW, 09/27/2016, 15:44. FINDINGS: Surgical changes and devices: None. Lungs and pleura: Airspace infiltrates in the left upper lobe, consistent with No pleural effusions or pneumothorax. Mediastinum: Mediastinal contours are normal. Heart size is normal. Bones and chest wall: No suspicious bony abnormalities. Soft tissues appear unremarkable. IMPRESSION: Left upper lobe pneumonia. Dictated by: Cesar Medeiros M.D. on 09/30/2016 at 19:32 Approved by: Cesar Medeiros M.D. on 09/30/2016 at 19:34 Brief History as per HPI perfomed by Dr Salvador on 09/30/16 Is a 66-year-old male who has a history of noncompliance with history of COPD he is also homeless and lives in his car for now. Patient was recently hospitalized here 09/07/2016 and was found to have elevated troponins suggesting non-STEMI. He was seen by cardiology at that time. He was deemed because of his behavior not a great candidate for coronary angiogram. Patient is usually not agreeable to such procedures either. Historic Interpreter recommends that if he shows compliancy with his heart medications for at least for a few months and we can consider the idea of performing a coronary angiogram. Patient was evaluated here today and of significance 2 view chest x-ray revealed left upper lobe pneumonia. White count is noted to be 11.6 he does have a possible history of atrial fibrillation and heart rate was noted to be 133 and 92% O2 sat on 2 L of stool cannula upon presentation here. I cannot locate a 12-lead EKG at this time done today. He denies any fevers or chills. He denies any chest pain. Hospital Course # Acute on chronic hypoxic and hypercapnic respiratory failure due to COPD exacerbation, present on admission, acute Continue with prednisone 40 mg by mouth daily for 3 more days, O2 supplementation as needed Dual nebs 4 times a day while awake and albuterol nebs every 2 hours when necessary # HERMELINDA pneumonia/HCAP,acute,poa Health care associated pneumonia given his frequent ER visits and recent hospitalization here in August. Initially Started on IV cefepime, IV vancomycin, IV Levaquin, IV metronidazole. de-escalated the antibiotics to Levaquin only given infectious workup is negative so far. We discharge him on Augmentin for 4 more days. PCR respiratory, Flu Ag ,urine for Legionella and pneumococcus negative blood culture negative # Suspected Demand ischemia /NSTEMI , present on admission serial troponins checked and trending down 12-lead EKG no ST-T wave changes Encouraged compliance with cardiac medications -c/w ASA,atorvastatin,metoprolol,Imdur # Type II diabetes, chronic, present on admission -Resumed home insulin 12 units twice a day -Hemoglobin A1c 10.5, consistent with uncontrolled likely due to noncompliant -Resume home glipizide # Medication noncompliance, chronic # DVT prophylaxis Placed on subcutaneous anticoagulation # CODE status DNR/DNI verified with patient, he also has a signed living will disposition;discharge home Condition on discharge stable Patient very high risk for readmission due to medication noncompliance Exam Vital Signs (Last) Date Time Temp Pulse Resp B/P Pulse Ox O2 Delivery O2 Flow Rate FiO2 10/03/16 12:41 94 Nasal Cannula 3.00 10/03/16 12:17 89 10/03/16 10:55 10/03/16 08:04 36.6 20 Exam Constitutional: Disheveled appearing male Head: Normocephalic atraumatic Eyes: PERRLA DC EOMI Neck: No adenopathy Chest reveals diffuse rhonchi Cor: Regular regular rate and rhythm S1-S2 Abdomen soft nontender bowel sounds present Skin: Bilateral lower extremity stasis dermatitis Extremities: 1+ lower extremity edema Neuro: Alert and oriented 3, motor strength is intact bilaterally Test 09/30/16 19:20 09/30/16 23:13 10/01/16 08:23 10/03/16 05:35 Hemoglobin A1c 10.5% (4.8-5.6) Hold Ramires Top Tube Received (Received) Urine Color Straw (YELLOW) Urine Appearance Clear (CLEAR,HAZY) Urine pH 5.0 (5.0-8.0) Urine Specific [place] 1.010 (1.003-1.035) Urine Protein Negativemg/dL (NEG,TRACE) Urine Glucose (UA) >1000mg/dL (NEGATIVE) Urine Ketones Negativemg/dL (NEGATIVE) Urine Occult Blood Negative (NEGATIVE) Urine Nitrite Negative (NEGATIVE) Urine Bilirubin Negative (NEGATIVE) Urine Urobilinogen Normalmg/dL (NORMAL) Urine Leukocyte Esterase Negative (NEGATIVE) Urine RBC 0-2/hpf (0-2) Urine WBC 0-5/hpf (0-5) Urine Epithelial Cells Few/hpf (NONE-MOD) Urine Crystals None seen (NONE SEEN) Urine Bacteria Few/hpf (NONE-FEW) Urine Hyaline Casts None/lpf (NONE) Urine Granular Casts None seen (NONE SEEN) Urine Waxy Casts None seen (NONE SEEN) Urine Red Blood Cell Casts None seen (NONE SEEN) Urine White Blood Cell Casts None seen (NONE SEEN) Urine Mucus None seen (None Seen) Urine Trichomonas None seen (NONE SEEN) Urine Yeast None (NONE SEEN) Urinalysis Comment None Urine Culture Reflexed Not indicated Urine Legionella pneumophilia Ag Negative (Negative) Hold Urine Received (Received) White Blood Count 10.3th/mm3 (3.8-10.1) Red Blood Count 4.39mil/mm3 (4.40-5.80) Hemoglobin 12.6g/dL (13.8-17.2) Hematocrit 38.9% (41.0-50.0) Mean Corpuscular Volume 88.6fL (81-100) Mean Corpuscular Hemoglobin 28.7pg (27.0-35.0) Mean Corpuscular Hemoglobin Concent 32.4% (32.0-37.0) Red Cell Distribution Width 14.9% (12.3-15.4) Platelet Count 353bil/L (150-400) Neutrophils (%) (Auto) 75.4% (40-74) Lymphocytes (%) (Auto) 9.9% (14-46) Monocytes (%) (Auto) 11.9% (4-12) Eosinophils (%) (Auto) 1.1% (0-5) Basophils (%) (Auto) 0.4% (0-3) Hematology Comments Sodium Level 138mEq/L (134-144) Potassium Level 4.5mEq/L (3.5-5.2) Chloride Level 100mEq/L (97-108) Carbon Dioxide Level 21mmol/L (18-29) Blood Urea Nitrogen 28mg/dL (8-27) Creatinine 0.72mg/dL (0.76-1.27) Estimat Glomerular Filtration Rate 116mL/min (>59) Glucose Level 71mg/dL (60-99) Calcium Level 9.0mg/dL (8.5-10.1) Phosphorus Level 4.3mg/dL (2.5-4.9) Magnesium Level 1.9mg/dL (1.6-2.6) Total Bilirubin 0.2mg/dL (0.0-1.2) Aspartate Amino Transf (AST/SGOT) 13U/L (0-50) Alanine Aminotransferase (ALT/SGPT) 14U/L (0-44) Alkaline Phosphatase 65U/L (25-160) Troponin T 0.101ug/L (0.0-0.011) Total Protein 6.0g/dL (6.4-8.4) Albumin 3.7g/dL (3.4-5.0) Procalcitonin 0.11ng/mL (0.00-0.08) Discharge Medications Discharge Medications Albuterol HFA (Proair HFA) 8.5 Gm Hfa.aer.ad 2 PUFFS INHALATION Q4H Prescribed by: RASHEL FALL Amlodipine (Amlodipine) 5 Mg Tablet 5 MG PO DAILY Prescribed by: NIVIA NIELSEN DO Amoxicillin/Clav K 875-125 mg (Augmentin 875-125 mg) 1 Each Tablet 1 TABLET PO BID Prescribed by: NEDA REESE MD Aspirin Chew (Aspirin Chew) 81 Mg Chew 81 MG PO DAILY Prescribed by: NIVIA NIELSEN DO Atorvastatin Calcium (Atorvastatin Calcium) 20 Mg Tablet 20 MG PO HS Prescribed by: NIVIA NIELSEN DO Beclomethasone Dipropionate (Qvar) 8.7 Gm Aer.w.adap 1 PUFF INHALATION BID Prescribed by: NIVIA NIELSEN DO Clopidogrel (Clopidogrel) 75 Mg Tablet 75 MG PO DAILY Prescribed by: NIVIA NIELSEN DO Glipizide (Glipizide) 5 Mg Tablet 5 MG PO BIDAC Prescribed by: NIVIA NIELSEN DO Insuln Asp Prt/Insulin Aspart (NovoLOG 70/30 U100 Insulin Flexpen) 100 Unit/Ml Unit 12 UNIT SUBQ BID Prescribed by: NIVIA NIELSEN DO Isosorbide MN ER (Isosorbide MN ER) 30 Mg Tab.er.24h 30 MG PO DAILY Prescribed by: NIVIA NIELSEN DO Ketoconazole (Nizoral) 120 Ml Shampoo 120 ML TOP BID Prescribed by: NIVIA NIELSEN DO Lisinopril (Lisinopril) 5 Mg Tablet 5 MG PO DAILY Prescribed by: NIVIA NIELSEN DO Metformin (Glucophage) 1,000 Mg Tablet 1,000 MG ORAL BID Prescribed by: NIVIA NIELSEN DO Metoprolol Tartrate (Metoprolol Tartrate) 75 Mg Tablet 75 MG PO BID Prescribed by: NIVIA NIELSEN DO Prednisone (PredniSONE) 20 Mg Tablet 40 MG PO DAILY Prescribed by: RASHEL FALL Sertraline HCl (Sertraline) 50 Mg Tablet 25 MG PO DAILY Prescribed by: NIVIA NIELSEN DO As needed Albuterol Sulfate (Ventolin HFA Inhaler) 200 Puff/18 Gm Inhaler 1-2 PUFFS INH DIRECTED PRN PRN For Wheezing Prescribed by: NIVIA NIELSEN DO Benzonatate (Benzonatate) 100 Mg Capsule 100 MG PO TID PRN PRN For Cough Prescribed by: NIVIA NIELSEN DO Nitroglycerin SL (Nitroglycerin SL) 0.4 Mg Tab.subl 0.4 MG SL Q5MIN PRN PRN For Chest Pain Prescribed by: NIVIA NIELSEN DO Followup Plan Disposition: home Follow-up plan Please follow-up with PCP in 1 week. Discharge Diet: Low fat, Low Sodium, Heart Healthy, Diabetic Discharge Activity: Limited until seen by PCP Patient Instructions You were hospitalized due to COPD exacerbation and pneumonia. Please take Augmentin for 4 more days. Please take prednisone 30 mg daily for 3 more days. Please follow-up with PCP in 1 week. Follow-up Provider: Yumiko James MD Follow-up with PCP in: 1 week Time spent 45 minutes coordinating discharge copies to: Yumiko James MD, Melaku MD Oct 03, 2016 13:46
--- NOTE | 2016-10-03 15:11 | NUR ---
Discharge Patient discharged home. IV DC'd and intact. Discharge instructions given with no questions. RX sent with patient. Patient denied pain and nausea. Patient gathered all belongings. BIN OPERATOR escorted patient out via W/C.
--- NOTE | 2016-10-03 15:35 | NUR ---
Social work Note - Discharge SOFTWARE MANAGER met with pt - pt to d/c to his car today. He states that he wants to continue to look for housing. SOFTWARE MANAGER will update Consistent care CM Yin Olivares. SOFTWARE MANAGER recommended that pt wear his home O2 in his car. Pt states that he does not wear it because he does not want his car to blow up. SOFTWARE MANAGER provided education and support. no other needs identified. SOFTWARE MANAGER attempted to have pt Sign CORINNE's - pt refused. DULCE MARIA Acosta
== END 2016-10-03 14:35 | disposition home or self-care (01) | DRG 189 ==
LOC: SED 16:44 → OBSVTOIN 21:10 → MOC 21:10 → OSC 21:43
PROVIDERS: ADMIT Specialist; ATTEND Specialist
DX: J96.22 Acute and chronic respiratory failure with hypercapnia (principal); J18.9 Pneumonia, unspecified organism; J44.1 Chronic obstructive pulmonary disease with (acute) exacerbation; I24.8 Other forms of acute ischemic heart disease; I50.42 Chronic combined systolic (congestive) and diastolic (congestive) heart failure; E11.9 Type 2 diabetes mellitus without complications; E78.5 Hyperlipidemia, unspecified; I25.10 Atherosclerotic heart disease of native coronary artery without angina pectoris; Z66 Do not resuscitate; I10 Essential (primary) hypertension; Z59.0 Homelessness; I25.2 Old myocardial infarction; Z91.19 Patient's noncompliance with other medical treatment and regimen; Z79.51 Long term (current) use of inhaled steroids

== ENCOUNTER 2016-10-04 16:06 | Emergency (ER) | payer MEDICARE ==
[~2016-10-04] VITALS: Ht 170.2 cm; Wt 104.5 kg
[~2016-10-04 16:06] MED LIST changes: +AMOX-366 PO; -AZIT250T4 PO
[2016-10-04 16:17] VITALS: BP 95/79; PULSE 128; RESP 28; O2SAT 92
[2016-10-04 16:45] LABS: BASOPHILS % (AUTO) 0.6 % (0-3); Mean Corpuscular Volume 87.7 fL (81-100)
[2016-10-04 16:48] LABS: EOSINOPHILS % (AUTO) 1.9 % (0-5); MONOCYTES % (AUTO) 9.6 % (4-12); Mean Corpuscular Hemoglobin 28.5 pg (27.0-35.0); NEUTROPHILS % (AUTO) 75.1 % (40-74); Platelet Count 355 bil/L (150-400)
--- NOTE | 2016-10-04 17:27 | ED.REPORT ---
HPI-Dyspnea / Wheezing Date of Service Oct 04, 2016 ED Provider: Antonio Chowdhury MD Pt is a 66 y.o. male with an extensive medical hx including COPD, CHF, DM, HTN, and HLD with multiple ED visits who presents to the ED c/o SOB onset 1.5 hours prior to arrival. Pt denies associated chest pain, fever, and cough. He was discharged from the hospital yesterday (10/03/16) after being admitted on for COPD exacerbation and pneumonia. Pt was discharged on a course of abx and prednisone. He states that he did take his prednisone today but "didn't bother with the antibiotic". Upon examination pt had received two duo-nebs and reports feeling improved. Nursing Notes Stated Complaint: SHORTNESS OF BREATH Chief Complaint: Respiratory Distress Nursing Notes Reviewed: Yes ([employer], [employer] not reconciled) Allergies: Coded Allergies: vancomycin (Verified Allergy, Intermediate, Rash,Itching,, 10/04/16) Per Dr. Sorto: Pt should tolerates vancomycin as long as the rate is slow Scheduled Albuterol HFA (Proair HFA) 8.5 Gm Hfa.aer.ad 2 PUFFS INHALATION Q4H Amlodipine (Amlodipine) 5 Mg Tablet 5 MG PO DAILY Amoxicillin/Clav K 875-125 mg (Augmentin 875-125 mg) 1 Each Tablet 1 TABLET PO BID Aspirin Chew (Aspirin Chew) 81 Mg Chew 81 MG PO DAILY Atorvastatin Calcium (Atorvastatin Calcium) 20 Mg Tablet 20 MG PO HS Beclomethasone Dipropionate (Qvar) 8.7 Gm Aer.w.adap 1 PUFF INHALATION BID Clopidogrel (Clopidogrel) 75 Mg Tablet 75 MG PO DAILY Glipizide (Glipizide) 5 Mg Tablet 5 MG PO BIDAC Insuln Asp Prt/Insulin Aspart (NovoLOG 70/30 U100 Insulin Flexpen) 100 Unit/Ml Unit 12 UNIT SUBQ BID Isosorbide MN ER (Isosorbide MN ER) 30 Mg Tab.er.24h 30 MG PO DAILY Ketoconazole (Nizoral) 120 Ml Shampoo 120 ML TOP BID Lisinopril (Lisinopril) 5 Mg Tablet 5 MG PO DAILY Metformin (Glucophage) 1,000 Mg Tablet 1,000 MG ORAL BID Metoprolol Tartrate (Metoprolol Tartrate) 75 Mg Tablet 75 MG PO BID Prednisone (PredniSONE) 20 Mg Tablet 40 MG PO DAILY Sertraline HCl (Sertraline) 50 Mg Tablet 25 MG PO DAILY Scheduled PRN Albuterol Sulfate (Ventolin HFA Inhaler) 200 Puff/18 Gm Inhaler 1-2 PUFFS INH DIRECTED PRN PRN For Wheezing Benzonatate (Benzonatate) 100 Mg Capsule 100 MG PO TID PRN PRN For Cough Nitroglycerin SL (Nitroglycerin SL) 0.4 Mg Tab.subl 0.4 MG SL Q5MIN PRN PRN For Chest Pain General Time Seen by MD: 16:29 Chief Complaint Shortness of breath Hx Obtained From: Patient Arrived By: Wheelchair Sudden in Onset?: Yes Onset Occurred: 1 - 4 hours ago Symptom Duration: Since onset Location: : None Severity: Current: No pain currently Severity: Maximum: No pain Recent Healthcare: Recent hospitalization Similar Sx Previous: Yes Past Medical History Past Medical History Notes: PCP: Dr. James Frequent hospital admissions for COPD exacerbations Often refuses treatment and is abusive to staff. Often leaves AMA. 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" Multiple visits of COPD with exacerbation (patient on chronic O2 2-3 L) History of paroxysmal atrial tachycardia Chronic CHF with systolic and diastolic dysfunction, echo August 2013 with an decreased left ventricular ejection fraction History of nonadherence to medical treatment Chronic venous insufficiency Hx cellulitis Reports: COPD, Congestive heart failure, Diabetes mellitus, Hyperlipidemia, Hypertension Reports: Obesity Past Surgical History None Family History Reports: Diabetes mellitus Smoking History Former Smoker Social History Patient is currently living in his car Alcohol Use: Denies alcohol use Drug Use: Denies drug use Other Social History: Poor social support, Frequent ED visitor, Homeless 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 Physical Exam Initial Vital Signs Vital Signs (First) Date Time Temp Pulse Resp B/P Pulse Ox O2 Delivery O2 Flow Rate FiO2 10/04/16 16:17 36.7 128 28 95/79 92 Nasal Cannula 3 Initial VS: Reviewed Head / Eyes: Atraumatic, Normocephalic Abdomen / GI: No distention Extremities: Vascular intact, Neuro intact Skin: Warm, Dry, No cyanosis Neurologic: Alert, Oriented, Nonfocal Psychiatric: Mood/affect normal, Behavior normal, Normal thought content General/Constitutional: Awake, Alert, No acute distress, Well appearing, Well developed, Well hydrated Appearance / Presentation: Positive: Obese Refuses to get in gown or gurney Adequate decisional capacity Neck: Atraumatic Respiratory / Chest: Atraumatic, No respiratory distress (Upon examination, presented in respiratory distress) Diminished Breath Sounds: Positive: Decreased bilateral No longer bronchospastic upon examination. Cardiovascular: Regular rhythm, Peripheral circulation NL Heart Rate / Rhythm: Positive: Tachycardia Chronic venous stasis and edema, bilateral Interpretation & Diagnostics Lab Results Interpretation Result Diagram: 10/04/16 1642 10/04/16 1642 Test 10/04/16 16:28 10/04/16 16:42 Hold Ramires Top Tube Received (Received) White Blood Count 9.0th/mm3 (3.8-10.1) Red Blood Count 4.63mil/mm3 (4.40-5.80) Hemoglobin 13.2g/dL (13.8-17.2) Hematocrit 40.6% (41.0-50.0) Mean Corpuscular Volume 87.7fL (81-100) Mean Corpuscular Hemoglobin 28.5pg (27.0-35.0) Mean Corpuscular Hemoglobin Concent 32.5% (32.0-37.0) Red Cell Distribution Width 14.9% (12.3-15.4) Platelet Count 355bil/L (150-400) Neutrophils (%) (Auto) 75.1% (40-74) Lymphocytes (%) (Auto) 10.0% (14-46) Monocytes (%) (Auto) 9.6% (4-12) Eosinophils (%) (Auto) 1.9% (0-5) Basophils (%) (Auto) 0.6% (0-3) Sodium Level 142mEq/L (134-144) Potassium Level 4.1mEq/L (3.5-5.2) Chloride Level 101mEq/L (97-108) Carbon Dioxide Level 26mmol/L (18-29) Blood Urea Nitrogen 21mg/dL (8-27) Creatinine 0.75mg/dL (0.76-1.27) Estimat Glomerular Filtration Rate 110mL/min (>59) Glucose Level 343mg/dL (60-99) Calcium Level 8.8mg/dL (8.5-10.1) Total Bilirubin 0.2mg/dL (0.0-1.2) Aspartate Amino Transf (AST/SGOT) 15U/L (0-50) Alanine Aminotransferase (ALT/SGPT) 14U/L (0-44) Alkaline Phosphatase 61U/L (25-160) Troponin T 0.114ug/L (0.0-0.011) Total Protein 6.2g/dL (6.4-8.4) Albumin 3.5g/dL (3.4-5.0) Lab Results Interpretation: C normal CMP hyperglycemic Troponin still elevated, not significant changed from yesterday, although marginally increased-down from higher levels in recent weeks Point of Care Testing: Troponin elevated ECG Interpretation ECG Interpretation: Computer reads ST depression but none seen Time: 17:50 Interpreted by: ED physician Normal ECG Interpretation: Normal sinus rhythm Rhythm / Conduction: Tachycardia (rate of 109) Re-Eval/Medical Decision Med Decision/Clinical Course This is a 66-year-old male well-known to the department. The patient is not entirely noncompliant and a challenging patient. He reports he just had the "same thing happen-became short of breath so came to the ED. He has had a multitude of admissions every month for quite a while and was just discharged yesterday with a questionable pneumonia. He is supposed be taking Augmentin-he is not taking. He is known to have demand ischemia, supported controlled diabetic and is known to do whatever he wants with his medications. His been seen by the machine farmworker, was indicated is not a can for any intervention despite the underlying disease due to the patient's complete disregard for any compliance. The patient has not changed his mind, and remains very particular about what medicines he might or might not take, and he continues to demonstrate ongoing noncompliance and disregard., Complicating matters he is homeless and was in a car as I understand it. He denies fevers chills or cough. He denies chest pain, he states he is just runs out of shortness of breath just like his previous COPD exacerbations. The patient just like all of his previous visits refused to get into a gown refuses to get into the examination bed, and is ornery with staff. He operates with me initially. Staff started subdued and these were continued-and when I examined him he states is feeling much better. he tells me like to be discharged. Nurses started an IV and labs, and a please of NSAID-related troponin is again elevated. It has been significant elevated much in the past several months. Again the patient is not taking his aspirin, noncompliant with any medications and after several minutes of discussion he agrees to take an aspirin today. He again does not appear to be a candidate for any real significant intervention at this time. He overall continues to demonstrate poor judgment. Patient was given aspirin here, he reports he is taking his steroids. He is hyperglycemic but is again noncompliant with his diabetic regimen as well. He initially wants to go home, and given his overall presentation that is not unreasonable. He is not really a candidate for much more aggressive intervention as is been extensively documented throughout the records, I personally had numerous conversations with this patient, as has the subspecialists who have indicated the patient not even be consulted at this point - see cardiology consult. Because of his multiple presentations admissions and discharges and SHOE REPAIRER consult was requested. Idiscussed the case with the hospitalist who just discharged the patient yesterday to get the thoughts on any particular interventions and recommendations. The hospitalist agreed that the patient is not a candidate for any additional intervention, and that discharge from the emergency department is again recommended. When I go back to talk to the patient he states that he feeling much better, but he insists that he does not want to be discharged at this moment as he is ordered and it was awaiting as dinner, and that he is not sure he wants to leave because he does not want to drive back to [place]. The patient is being turned over to Dr. Cox at change of shift. Wall this is a complex patient with severe comorbidities and a long history of noncompliance was a poor candidate for medical intervention-and repeatedly insists that he does not want medical intervention, and again includes today. His focus remains his food and driving and convenience-not medical care. This provides a complex situation, as as his disease meaning his COPD, diabetes, underlying coronary disease progress, simply he is certainly at increased risk of . Given his multiple elevated troponins in recent months, his risk continues to increase, the patient had a multitude of visits, continues to refuse basic compliance. The patient does not think he needs to be on the Augmentin and is discharged yesterday. And given the absence of fever cough or other heart findings of pneumonia, she think that is not unreasonable-it is the underlying care for COPD , diabetes, and heart disease that I think are more problematic. However I do not see any clear interventions of benefit at this time. Source of Hx: Old records Re-Evaluation/Progress : Time of Eval: 18:06 Re-Evaluation/Progress Note: Pt rechecked. Pt is feeling improved from a clinical standpoint. However, he wants dinner (which has been ordered) and does not want to drive currently. Consultation : Referral / Consult Name: Hiram Savage MD Consulted With: Hospitalist Call Returned at: 17:48 Note: Consulted with Dr. Savage, consulting hospitalist for pt's most recent admission, about pt's elevated troponin. He recommends discharging pt. Counseled Regarding: Diagnosis Discharge & Departure Shift Change Sign-Out Patient Care Transferred: Yes (Dr. Cox) Discussed Complaint(s): Yes Laboratory Evaluation: Lab evaluation discussed Impression: Primary Impression: Chronic obstructive pulmonary disease (COPD) COPD type: COPD with acute exacerbation Qualified Code: J44.1 - Chronic obstructive pulmonary disease with (acute) exacerbation Additional Impressions: Noncompliance with medication regimen Behavioral disorder Elevated troponin Disposition: Home Discharge Condition All VS Reviewed: Yes Condition: Stable Referrals: Yumiko James MD (PCP) Raimundo Attestation Portions of this note were transcribed by Caleb Padilla. I, Dr. Chowdhury personally performed the history, physical exam and medical decision-making; I reviewed and confirmed the accuracy of the information in the transcribed note. Signed by: Raimundo Montes, 10/04/16 and 1813. copies to: Yumiko James MD, Matthew F MD Oct 04, 2016 17:27 CALEB PADILLA Oct 04, 2016 17:35
[2016-10-04 17:30] LABS: TROPONIN T 0.114 ug/L (0.0-0.011)
[2016-10-04 18:02] VITALS: BP 136/73; PULSE 107; RESP 22; O2SAT 94
[2016-10-04 20:26] VITALS: BP 140/80; PULSE 103; RESP 28; O2SAT 94
== END 2016-10-04 20:27 | disposition home or self-care (01) ==
LOC: SED 16:06
DX: J44.1 Chronic obstructive pulmonary disease with (acute) exacerbation (principal); F91.8 Other conduct disorders; R77.8 Other specified abnormalities of plasma proteins; I11.0 Hypertensive heart disease with heart failure; E11.65 Type 2 diabetes mellitus with hyperglycemia; E11.59 Type 2 diabetes mellitus with other circulatory complications; I50.40 Unspecified combined systolic (congestive) and diastolic (congestive) heart failure; I25.2 Old myocardial infarction; E78.5 Hyperlipidemia, unspecified; Z91.14 Patient's other noncompliance with medication regimen; Z79.82 Long term (current) use of aspirin; Z79.4 Long term (current) use of insulin; Z79.84 Long term (current) use of oral hypoglycemic drugs; Z88.1 Allergy status to other antibiotic agents; Z59.0 Homelessness

== ENCOUNTER 2016-10-16 16:51 | Emergency (ER) | payer MEDICARE ==
[~2016-10-16] VITALS: Ht 170.2 cm; Wt 108.6 kg
[2016-10-16 16:53] VITALS: BP 154/101; PULSE 121; RESP 24; O2SAT 88
[2016-10-16 17:04] VITALS: RESP 20; O2SAT 91
[2016-10-16] MEDS ORDERED: Ipratropium 0.02% 0.5 mg/2.5 mL Inhalation Solution NEB ONE (17:20)
[2016-10-16] MEDS ORDERED: Albuterol 2.5 mg/3 mL Inhalation Solution NEB ONE (17:20)
--- NOTE | 2016-10-16 17:21 | ED.REPORT ---
HPI-Dyspnea / Wheezing Date of Service Oct 16, 2016 ED Provider: Antonio Chowdhury MD Patient is a 66 year old male w/ an extensive medical hx including COPD, CHF, DM , HTN, and HLD with multiple ED visits who presents to the ED due to SOB onset two hours ago. He was sitting down and watching TV when he began experiencing symptoms. He used his nebulizer before coming to the ED but has not had any prednisone today. He denies fever, diaphoresis, chest pain, chills. He was most recently seen at the ED for previous symptoms 10/04/16 for similar symptoms. Previous to this visit, he was discharged from the hospital (10/03/16) after being admitted on 09/30/16 for COPD exacerbation and pneumonia. Nursing Notes Stated Complaint: SHORT OF BREATH Chief Complaint: Respiratory Distress Nursing Notes Reviewed: Yes (Walltik not reconciled) Allergies: Coded Allergies: vancomycin (Verified Allergy, Intermediate, Rash,Itching,, 10/16/16) Per Q: Pt should tolerates vancomycin as long as the rate is slow Scheduled Albuterol HFA (Proair HFA) 8.5 Gm Hfa.aer.ad 2 PUFFS INHALATION Q4H Amlodipine (Amlodipine) 5 Mg Tablet 5 MG PO DAILY Amoxicillin/Clav K 875-125 mg (Augmentin 875-125 mg) 1 Each Tablet 1 TABLET PO BID Aspirin Chew (Aspirin Chew) 81 Mg Chew 81 MG PO DAILY Atorvastatin Calcium (Atorvastatin Calcium) 20 Mg Tablet 20 MG PO HS Beclomethasone Dipropionate (Qvar) 8.7 Gm Aer.w.adap 1 PUFF INHALATION BID Clopidogrel (Clopidogrel) 75 Mg Tablet 75 MG PO DAILY Glipizide (Glipizide) 5 Mg Tablet 5 MG PO BIDAC Insuln Asp Prt/Insulin Aspart (NovoLOG 70/30 U100 Insulin Flexpen) 100 Unit/Ml Unit 12 UNIT SUBQ BID Isosorbide MN ER (Isosorbide MN ER) 30 Mg Tab.er.24h 30 MG PO DAILY Ketoconazole (Nizoral) 120 Ml Shampoo 120 ML TOP BID Lisinopril (Lisinopril) 5 Mg Tablet 5 MG PO DAILY Metformin (Glucophage) 1,000 Mg Tablet 1,000 MG ORAL BID Metoprolol Tartrate (Metoprolol Tartrate) 75 Mg Tablet 75 MG PO BID Prednisone (PredniSONE) 20 Mg Tablet 40 MG PO DAILY Sertraline HCl (Sertraline) 50 Mg Tablet 25 MG PO DAILY Scheduled PRN Albuterol Sulfate (Ventolin HFA Inhaler) 200 Puff/18 Gm Inhaler 1-2 PUFFS INH DIRECTED PRN PRN For Wheezing Benzonatate (Benzonatate) 100 Mg Capsule 100 MG PO TID PRN PRN For Cough Nitroglycerin SL (Nitroglycerin SL) 0.4 Mg Tab.subl 0.4 MG SL Q5MIN PRN PRN For Chest Pain General Time Seen by MD: 17:15 Chief Complaint Shortness of breath Hx Obtained From: Patient Arrived By: Walk-in Sudden in Onset?: Yes Onset Occurred: 1 - 4 hours ago Symptom Duration: Since onset Severity: Current: No pain currently Recent Healthcare: Recent doctor visit, Recent hospitalization Similar Sx Previous: Yes Past Medical History Past Medical History Notes: PCP: Dr. James Frequent hospital admissions for COPD exacerbations Often refuses treatment and is abusive to staff. Often leaves AMA. 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" Multiple visits of COPD with exacerbation (patient on chronic O2 2-3 L) History of paroxysmal atrial tachycardia Chronic CHF with systolic and diastolic dysfunction, echo August 2013 with an decreased left ventricular ejection fraction History of nonadherence to medical treatment Chronic venous insufficiency Hx cellulitis Reports: COPD, Congestive heart failure, Diabetes mellitus, Hyperlipidemia, Hypertension Reports: Obesity Past Surgical History None Family History Reports: Diabetes mellitus Smoking History Former Smoker Social History Patient is currently living in his car Alcohol Use: Denies alcohol use Drug Use: Denies drug use Other Social History: Poor social support, Frequent ED visitor, Homeless 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 Physical Exam Initial Vital Signs Vital Signs (First) Date Time Temp Pulse Resp B/P Pulse Ox O2 Delivery O2 Flow Rate FiO2 10/16/16 16:53 36.6 121 24 154/101 88 Room Air 10/16/16 18:03 2 Initial VS: Reviewed, Vital signs abnormal General/Constitutional: Awake, Alert Appearance / Presentation: Positive: Hygiene poor Patient is ornery, but currently cooperative. He makes several derogatory statements, but has been even more verbally abusive in the past Resp Distress / Stridor: Positive: Resp distress moderate Diminished Breath Sounds: Positive: Decreased bilateral She appears moderate COPD Heart Rate / Rhythm: Positive: Tachycardia Heart Sounds / Murmur: Negative: Murmur present... Upper Ext Edema: Positive: Bilateral 2+ Abdomen: Atraumatic, Soft, Non-tender Obese Venous stasis changes Neurologic: Oriented X3, Speech NL, No motor deficits Patient hostile, and only marginally cooperative. Verbally abusive. Interpretation & Diagnostics ECG Interpretation ECG Interpretation: On his tachycardia rate of 116, with a slightly poor baseline as the patient is shortness of breath and moves-but I do not appreciate ischemic changes, ST abnormalities in consecutive leads Time: 17:43 Interpreted by: ED physician Rhythm / Conduction: Tachycardia (116) Re-Eval/Medical Decision Med Decision/Clinical Course This is a 66-year-old male severe COPD history of coronary disease and multiple N STEMI's as well as diabetes-and off complete noncompliance, calm dictated by homelessness, complicated by refusal to cooperate with medical care presents with 2 hours of shortness of breath. Patient was listed as being hypoxic, and dyspneic and a category 2 so I went in and evaluated the patient. He once again refuses to get undressed, refuses to get on a gurney, once again he asked for pistol to shoot himself jokingly-a jokingly makes every time I have seen him in the multiple ED visits. He states that it feels the same symptoms started up about 2 hours ago he tried some nebs on the [place] has had no improvement. He denies fevers, chills, chest pain. He is on room air present, but he states it is around much O2 sats exposed beyond. He has a O2 sat of 80%. He appears mildly short of breath, although I have seen him worse-and he is markedly decreased breath sounds with poor air movement He has chronic edema and venous stasis changes unchanged. He is permitted a albuterol and Atrovent which have started, and an EKG which as been performed and without clear ischemic changes. He arrived just prior to shift change, is being turned over to Dr. pedro giang patient's been informed of this. Source of Hx: Old records Counseled Regarding: Diagnosis, Lab results, Need for follow-up, When/why to return to ED Discharge & Departure Shift Change Sign-Out Patient Care Transferred: Yes Discussed Complaint(s): Yes Laboratory Evaluation: Lab evaluation discussed (not yet ordered, deferred to re-eval (patient permitted only EKG initially)) Imaging Studies: Ordered, not yet done Impression: Primary Impression: Acute exacerbation of chronic obstructive pulmonary disease (COPD) Additional Impressions: Noncompliance with medication regimen Hypoxia Disposition: Home Discharge Condition All VS Reviewed: Yes Condition: Stable Referrals: Yumiko James MD (PCP) Care Transferred to: Dr. Jim Cox Care Transferred at: 18:01 [place] Attestation Portion of this note were transcribed by Alexandra Maier. I, Dr. Chowdhury, personally performed the history, physical exam, and medical decision-making: I reviewed and confirmed the accuracy for the information in the transcribed note. Signed by: avila Gray, 10/16/16 1800 copies to: Yumiko James MD, Matthew F MD Oct 16, 2016 17:21 Alexandra Maier Oct 16, 2016 17:53
[2016-10-16 18:03] VITALS: PULSE 110; RESP 20; O2SAT 92
[2016-10-16] MEDS ORDERED: ALBU2.5V4 INHALATION (18:51)
[2016-10-16] MEDS ORDERED: PRE20 PO (18:51)
[2016-10-16] MEDS ORDERED: predniSONE 20 mg Tablet PO ONE (18:55)
[2016-10-16 19:17] VITALS: PULSE 107; O2SAT 92
--- NOTE | 2016-10-16 19:22 | DRSVH ---
PROCEDURE: X-RAY CHEST ONE VIEW, PORTABLE ([id number]) INDICATIONS: 66 year-old male with shortness of breath. TECHNIQUE: One view of the chest was acquired. COMPARISON: [facility], CR, XR CHEST 2VW, 09/30/2016, 19:12. [facility], CR, XR CHEST 2VW, 09/27/2016, 15:44. [facility], CR, XR CHEST 1VW (PORTABLE), 09/24/2016, 15: 40. FINDINGS: Surgical changes and devices: None. Lungs and pleura: No pleural effusions or pneumothorax. Lungs are clear, with interval resolution o f left midlung airspace opacity. Mediastinum: Mediastinal contours appear normal. Heart size is normal. There is aortic atheroscler osis. Bones and chest wall: No suspicious bony lesions. Overlying soft tissues appear unremarkable. IMPRESSION: Interval resolution of left midlung pneumonia. No acute cardiopulmonary disease. Dictated by: Mukesh Acevedo M.D. on 10/16/2016 at 19:22 Approved by: Mukesh Acevedo M.D. on 10/16/2016 at 19:22
== END 2016-10-16 19:08 | disposition home or self-care (01) ==
LOC: SED 16:51
DX: J44.1 Chronic obstructive pulmonary disease with (acute) exacerbation (principal); R09.02 Hypoxemia; I50.9 Heart failure, unspecified; E11.9 Type 2 diabetes mellitus without complications; E78.5 Hyperlipidemia, unspecified; I25.10 Atherosclerotic heart disease of native coronary artery without angina pectoris; I10 Essential (primary) hypertension; E66.9 Obesity, unspecified; I87.2 Venous insufficiency (chronic) (peripheral); Z86.79 Personal history of other diseases of the circulatory system; Z91.14 Patient's other noncompliance with medication regimen; Z87.891 Personal history of nicotine dependence; Z79.82 Long term (current) use of aspirin; Z79.84 Long term (current) use of oral hypoglycemic drugs; Z79.4 Long term (current) use of insulin; Z79.52 Long term (current) use of systemic steroids; Z79.51 Long term (current) use of inhaled steroids; Z88.1 Allergy status to other antibiotic agents
CPT/HCPCS: 71010; 93005; 94644; 99284; J7613

== ENCOUNTER 2016-10-18 15:29 | Emergency (ER) | payer MEDICARE ==
[~2016-10-18 15:29] MED LIST changes: +ALBU2.5V4 INHALATION
[2016-10-18 15:35] VITALS: BP 193/113; PULSE 124; RESP 23; O2SAT 98
[2016-10-18] MEDS ORDERED: Albuterol-Ipratropium 3 mL Inhalation Solution ONE (15:36)
[2016-10-18 15:59] VITALS: PULSE 123; RESP 23; O2SAT 95
--- NOTE | 2016-10-18 16:11 | DRSVH ---
PROCEDURE: X-RAY CHEST ONE VIEW, PORTABLE ([id number]) INDICATIONS: 66-year-old male with chest pain and shortness of breath. TECHNIQUE: One view of the chest was acquired. COMPARISON: [facility], CR, XR CHEST 1VW (PORTABLE), 10/16/2016, 18:46. [facility], CR, XR CHEST 2VW, 09/30/2016, 19:12. [facility], CR, XR CHEST 2VW, 09/27/2016, 15: 44. FINDINGS: Surgical changes and devices: None. Lungs and pleura: No pleural effusions or pneumothorax. Lungs are clear. Mediastinum: Mediastinal contours appear normal. Heart size is normal. There is aortic atheroscler osis. Bones and chest wall: No suspicious bony lesions. Overlying soft tissues appear unremarkable. IMPRESSION: No acute cardiopulmonary disease. Dictated by: Mukesh Acevedo M.D. on 10/18/2016 at 16:09 Approved by: Mukesh Acevedo M.D. on 10/18/2016 at 16:10
[2016-10-18 16:12] LABS: BASOPHILS % (AUTO) 0.7 % (0-3); EOSINOPHILS % (AUTO) 5.2 % (0-5); MONOCYTES % (AUTO) 7.3 % (4-12); Mean Corpuscular Hemoglobin 28.7 pg (27.0-35.0); Mean Corpuscular Volume 87.4 fL (81-100); NEUTROPHILS % (AUTO) 72.4 % (40-74); Platelet Count 239 bil/L (150-400)
[2016-10-18 16:17] LABS: INR 0.93 ratio
--- NOTE | 2016-10-18 16:17 | ED.REPORT ---
HPI-General Illness Date of Service Oct 18, 2016 ED Provider: Christiano Stern MD Pt is a 66 y.o. male with an extensive medical hx including CAD, DC, CHF, COPD, DM, HTN, and HLD who presents to the ED c/o chest pain onset 2 hours prior to arrival. Pt describes the pain as a punch straight to his chest. He reports associated SOB. He claims he used his inhaler with no relief. Pt is a frequent ED visitor for chest pain and COPD exacerbation with his most recent visit being 10/16/16. He reports that this is similar to previous exacerbations of his lung disease. In his usual fashion he refuses to get out of his wheelchair or undress. He states that he has been told that he has had a heart attack though does not believe he has ever had a heart attack. Prior to myself entering the room he had received a DuoNeb treatment and reported significant symptomatic improvement. Nursing Notes Stated Complaint: BREATHING PROBLEMS Chief Complaint: Dysrhythmia/Cardiac Nursing Notes Reviewed: Yes Allergies: Coded Allergies: vancomycin (Verified Allergy, Intermediate, Rash,Itching,, 10/18/16) Per Q: Pt should tolerates vancomycin as long as the rate is slow Scheduled Albuterol HFA (Proair HFA) 8.5 Gm Hfa.aer.ad 2 PUFFS INHALATION Q4H Amlodipine (Amlodipine) 5 Mg Tablet 5 MG PO DAILY Amoxicillin/Clav K 875-125 mg (Augmentin 875-125 mg) 1 Each Tablet 1 TABLET PO BID Aspirin Chew (Aspirin Chew) 81 Mg Chew 81 MG PO DAILY Atorvastatin Calcium (Atorvastatin Calcium) 20 Mg Tablet 20 MG PO HS Beclomethasone Dipropionate (Qvar) 8.7 Gm Aer.w.adap 1 PUFF INHALATION BID Clopidogrel (Clopidogrel) 75 Mg Tablet 75 MG PO DAILY Glipizide (Glipizide) 5 Mg Tablet 5 MG PO BIDAC Insuln Asp Prt/Insulin Aspart (NovoLOG 70/30 U100 Insulin Flexpen) 100 Unit/Ml Unit 12 UNIT SUBQ BID Isosorbide MN ER (Isosorbide MN ER) 30 Mg Tab.er.24h 30 MG PO DAILY Ketoconazole (Nizoral) 120 Ml Shampoo 120 ML TOP BID Lisinopril (Lisinopril) 5 Mg Tablet 5 MG PO DAILY Metformin (Glucophage) 1,000 Mg Tablet 1,000 MG ORAL BID Metoprolol Tartrate (Metoprolol Tartrate) 75 Mg Tablet 75 MG PO BID Prednisone (PredniSONE) 20 Mg Tablet 40 MG PO DAILY Prednisone (PredniSONE) 20 Mg Tablet 40 MG PO DAILY Prednisone (PredniSONE) 20 Mg Tablet 40 MG PO DAILY Sertraline HCl (Sertraline) 50 Mg Tablet 25 MG PO DAILY Scheduled PRN Albuterol Neb Soln (Albuterol Neb Soln) 2.5 Mg/3 Ml Vial.neb 2.5 MG INHALATION Q4H PRN PRN For Shortness of Breath Albuterol Sulfate (Ventolin HFA Inhaler) 200 Puff/18 Gm Inhaler 1-2 PUFFS INH DIRECTED PRN PRN For Wheezing Benzonatate (Benzonatate) 100 Mg Capsule 100 MG PO TID PRN PRN For Cough Nitroglycerin SL (Nitroglycerin SL) 0.4 Mg Tab.subl 0.4 MG SL Q5MIN PRN PRN For Chest Pain General Time Seen by MD: 15:40 Chief Complaint Chest pain Hx Obtained From: Patient Arrived By: Wheelchair Sudden in Onset?: Yes Onset Occurred: 1 - 4 hours ago Symptom Duration: Since onset Location: : Chest Quality: Painful Severity: Current: Moderate Severity: Maximum: Severe Recent Healthcare: Recent doctor visit Past Medical History Past Medical History Notes: PCP: Dr. James Frequent hospital admissions for COPD exacerbations Often refuses treatment and is abusive to staff. Often leaves AMA. 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, echo August 2013 with an decreased left ventricular ejection fraction History of nonadherence to medical treatment Chronic venous insufficiency Hx cellulitis Reports: COPD, Congestive heart failure, Diabetes mellitus, Hyperlipidemia, Hypertension Reports: Obesity Past Surgical History None Family History Reports: Diabetes mellitus Smoking History Former Smoker Social History Patient is currently living in his car Alcohol Use: Denies alcohol use Drug Use: Denies drug use Other Social History: Poor social support, Frequent ED visitor, Homeless 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 Physical Exam Vital Signs Vital Signs Date Time Temp Pulse Resp B/P Pulse Ox O2 Delivery O2 Flow Rate FiO2 10/18/16 18:04 98 162/90 94 Room Air 10/18/16 17:13 102 161/81 94 Nasal Cannula 2 10/18/16 15:59 123 23 95 Nasal Cannula 6 10/18/16 15:35 124 23 193/113 98 Nasal Cannula Initial VS: Reviewed Head / Eyes: Atraumatic, Normocephalic Abdomen / GI: No distention Extremities: Vascular intact, Neuro intact Skin: Warm, Dry, No cyanosis Neurologic: Alert, Oriented, Nonfocal Psychiatric: Mood/affect normal, Behavior normal, Normal thought content General/Constitutional: Awake, Alert, No acute distress, Not toxic appearing Respiratory / Chest: No respiratory distress Wheezing / Retractions: Positive: Prolonged exp phase, Wheezing expiratory Coarse breath sounds throughout lung marlow Speaking in full sentences Good oxygen saturation on 3L nasal [place] which is baseline for him Cardiovascular: Heart rate NL, Regular rhythm, Heart sounds NL, Cap refill not delayed, Peripheral circulation NL Interpretation & Diagnostics Lab Results Interpretation Result Diagram: 10/18/16 1550 10/18/16 1550 Test 10/18/16 15:50 White Blood Count 7.3th/mm3 (3.8-10.1) Red Blood Count 5.09mil/mm3 (4.40-5.80) Hemoglobin 14.6g/dL (13.8-17.2) Hematocrit 44.5% (41.0-50.0) Mean Corpuscular Volume 87.4fL (81-100) Mean Corpuscular Hemoglobin 28.7pg (27.0-35.0) Mean Corpuscular Hemoglobin Concent 32.8% (32.0-37.0) Red Cell Distribution Width 14.9% (12.3-15.4) Platelet Count 239bil/L (150-400) Neutrophils (%) (Auto) 72.4% (40-74) Lymphocytes (%) (Auto) 13.6% (14-46) Monocytes (%) (Auto) 7.3% (4-12) Eosinophils (%) (Auto) 5.2% (0-5) Basophils (%) (Auto) 0.7% (0-3) Prothrombin Time 9.9sec (8.1-12.5) Prothromb Time International Ratio 0.93ratio Activated Partial Thromboplast Time 23.2sec (22.8-33.0) Sodium Level 140mEq/L (134-144) Potassium Level 4.5mEq/L (3.5-5.2) Chloride Level 101mEq/L (97-108) Carbon Dioxide Level 23mmol/L (18-29) Blood Urea Nitrogen 19mg/dL (8-27) Creatinine 0.79mg/dL (0.76-1.27) Estimat Glomerular Filtration Rate 104mL/min (>59) Glucose Level 438mg/dL (60-99) Calcium Level 8.9mg/dL (8.5-10.1) Magnesium Level 1.8mg/dL (1.6-2.6) Total Bilirubin 0.3mg/dL (0.0-1.2) Aspartate Amino Transf (AST/SGOT) 13U/L (0-50) Alanine Aminotransferase (ALT/SGPT) 14U/L (0-44) Alkaline Phosphatase 63U/L (25-160) Troponin T < 0.010ug/L (0.0-0.011) Total Protein 6.7g/dL (6.4-8.4) Albumin 4.0g/dL (3.4-5.0) Hold Ramires Top Tube Received (Received) General Lab Results Interp 1: Labs reviewed and NL ECG Interpretation ECG Interpretation: Q-waves presents in anteroseptal leads No ST elevation Boderline ST depression in lateral leads No acute changes present from prior ECG (10/16/16) and pt remains tachycardic Time: 15:40 Interpreted by: ED physician Normal ECG Interpretation: Normal axis, Normal intervals Rhythm / Conduction: Tachycardia (121) X-Ray Chest Interpretation Chest Xray Interpretation: IMPRESSION: No acute cardiopulmonary disease. Dictated by: Mukesh Acevedo M.D. on 10/18/2016 at 16:09 Approved by: Mukesh Acevedo M.D. on 10/18/2016 at 16:10 Re-Eval/Medical Decision Med Decision/Clinical Course Pt is a 66 y.o. male with an extensive medical hx including CAD, DC, CHF, COPD, DM, HTN, and HLD who presents to the ED c/o chest pain onset 2 hours prior to arrival. Pt describes the pain as a punch straight to his chest. He reports associated SOB. He claims he used his inhaler with no relief. Pt is a frequent ED visitor for chest pain and COPD exacerbation with his most recent visit being 10/16/16. He reports that this is similar to previous exacerbations of his lung disease. In his usual fashion he refuses to get out of his wheelchair or undress. He states that he has been told that he has had a heart attack though does not believe he has ever had a heart attack. Prior to myself entering the room he had received a DuoNeb treatment and reported significant symptomatic improvement. Upon arrival he is tachycardic in the 120s and quite hypertensive, he is generally tachycardic at baseline. His oxygen saturation is in the mid 90s on his baseline 3 L by nasal cannula. He was treated with 2 DuoNeb as well as 40 mg of oral prednisone and reported complete symptomatic improvement. Upon reexamination chest wall tenderness was reproducible with palpation. CXR: Obtained, reviewed and interpreted by myself shows no evidence of acute infiltrates, effusions or pneumothorax. Cardiac and mediastinal silhouette normal. No bony or soft tissue abnormalities. EKG was obtained and interpreted by myself as documented above. Laboratory studies notable as below: CBC unremarkable Troponin negative CMP normal, glucose of 438 Coag normal I had a discussion with the patient regarding his hyperglycemia. He reports history of diabetes and states that he does not take insulin and has no intention to do so. I also discussed his chest pain which seems most likely musculoskeletal in nature and related to his increased work of breathing. I discussed that we cannot definitively rule out acute coronary syndrome without admission, serial troponins and additional cardiac risk stratification. Patient declines admission and wishes to be discharged. I also considered pulmonary embolism however his overall clinical presentation is unconvincing thereof. His tachycardia improved after nebulizer treatments and his blood pressure also improved significantly. I prescribed a 5 day course of prednisone and he will use his inhalers and nebulizers as directed. Patient demonstrates decisional capacity in choosing to forego further workup. Source of Hx: Old records Time of Eval: 17:32 Re-Evaluation/Progress Note: Pt rechecked. Pt states that he feels improved. Discussed plan for discharge, pt understands and agrees with plan. Counseled Regarding: Diagnosis Discharge & Departure Primary Impression: Chest pain Chest pain type: unspecified Qualified Code: R07.9 - Chest pain, unspecified Additional Impressions: COPD exacerbation Tachycardia Hypertension Hypertension type: unspecified secondary hypertension Hypertension goal: unspecified goal Qualified Code: I15.9 - Secondary hypertension, unspecified Hyperglycemia Type II diabetes mellitus Diabetes mellitus complication status: with unspecified complications Qualified Code: E11.8 - Type 2 diabetes mellitus with unspecified complications Noncompliance with medication regimen Disposition: Home Discharge Condition All VS Reviewed: Yes Condition: Improved Additional Instructions: Follow-up with your primary care provider this week to discuss you elevated blood sugar. Referrals: Yumiko James MD (PCP) Scribe Attestation Portions of this note were transcribed by Caleb Padilla. I, Dr. Stern personally performed the history, physical exam and medical decision-making; I reviewed and confirmed the accuracy of the information in the transcribed note. Signed by: Raimundo Montes, 10/18/16 and 2007. copies to: Yumiko James MD, Beck O MD Oct 18, 2016 16:17 CALEB PADILLA Oct 18, 2016 16:47
[2016-10-18] MEDS ORDERED: PRE20 PO (16:18)
[2016-10-18] MEDS ORDERED: Albuterol-Ipratropium 3 mL Inhalation Solution NEB ONE (16:20)
[2016-10-18] MEDS ORDERED: predniSONE 20 mg Tablet PO ONE (16:20)
[2016-10-18 16:39] LABS: TROPONIN T < 0.010 ug/L (0.0-0.011)
[2016-10-18 16:42] LABS: Magnesium 1.8 mg/dL (1.6-2.6)
[2016-10-18 17:13] VITALS: BP 161/81; PULSE 102; O2SAT 94
[2016-10-18 18:04] VITALS: BP 162/90; PULSE 98; O2SAT 94
== END 2016-10-18 18:05 | disposition home or self-care (01) ==
LOC: SED 15:29
DX: R07.9 Chest pain, unspecified (principal); J44.1 Chronic obstructive pulmonary disease with (acute) exacerbation; R00.0 Tachycardia, unspecified; I15.9 Secondary hypertension, unspecified; E11.65 Type 2 diabetes mellitus with hyperglycemia; Z91.14 Patient's other noncompliance with medication regimen; I25.10 Atherosclerotic heart disease of native coronary artery without angina pectoris; I25.2 Old myocardial infarction; I50.9 Heart failure, unspecified; E78.5 Hyperlipidemia, unspecified; Z79.82 Long term (current) use of aspirin; Z79.84 Long term (current) use of oral hypoglycemic drugs; Z79.4 Long term (current) use of insulin; Z87.891 Personal history of nicotine dependence; Z88.1 Allergy status to other antibiotic agents
CPT/HCPCS: 36415; 71010; 80053; 83735; 84484; 85025; 85610; 85730; 93005; 94664; 94799; 99285; J7620

== ENCOUNTER 2016-10-24 17:05 | Emergency (ER) | payer MEDICARE ==
[~2016-10-24] VITALS: Ht 170.2 cm; Wt 109.1 kg
[2016-10-24 17:07] VITALS: BP 172/105; PULSE 118; RESP 20; O2SAT 93
--- NOTE | 2016-10-24 17:41 | DRSVH ---
PROCEDURE: X-RAY CHEST ONE VIEW, PORTABLE ([id number]) INDICATIONS: cp TECHNIQUE: One view of the chest was acquired. COMPARISON: [facility], CR, XR CHEST 1VW (PORTABLE), 10/18/2016, 15:32. FINDINGS: Surgical changes and devices: None. Lungs and pleura: No pleural effusions or pneumothorax. Lungs are clear. Diffuse scarring/atelecta sis, no new focal consolidation Mediastinum: Mediastinal contours appear normal. Heart size is normal. Bones and chest wall: No suspicious bony lesions. Overlying soft tissues appear unremarkable. IMPRESSION: Diffuse scarring/atelectasis. No acute disease Dictated by: Malcom Du M.D. on 10/24/2016 at 17:39 Approved by: Malcom Du M.D. on 10/24/2016 at 17:39
--- NOTE | 2016-10-24 18:15 | ED.REPORT ---
HPI-Chest Pain 40 and Over Date of Service Oct 24, 2016 ED Provider: Ranjeet Howell MD Pt is a 66 y/o male w/ a hx of medication non-compliance, very frequent ED visits, CAD, VA, DM, CHF, COPD, hyperlipidemia, HTN, presenting to the ED c/o substernal CP onset 1.5 hours prior to arrival. His pain lasted until arrival to the ED and is now resolved. He denies change in chronic SOB, change in cough , dizziness, lightheadedness, nausea, vomiting. He has been seen for CP multiple times and cardiology now refuses to consult on his case until he is compliant with medications for 3 months straight. Nursing Notes Stated Complaint: DIFFICULTY BREATHING,CHEST PAIN Chief Complaint: Chest Pain Nursing Notes Reviewed: Yes Allergies: Coded Allergies: vancomycin (Verified Allergy, Intermediate, Rash,Itching,, 10/18/16) Per Q: Pt should tolerates vancomycin as long as the rate is slow Scheduled Albuterol HFA (Proair HFA) 8.5 Gm Hfa.aer.ad 2 PUFFS INHALATION Q4H Amlodipine (Amlodipine) 5 Mg Tablet 5 MG PO DAILY Amoxicillin/Clav K 875-125 mg (Augmentin 875-125 mg) 1 Each Tablet 1 TABLET PO BID Aspirin Chew (Aspirin Chew) 81 Mg Chew 81 MG PO DAILY Atorvastatin Calcium (Atorvastatin Calcium) 20 Mg Tablet 20 MG PO HS Beclomethasone Dipropionate (Qvar) 8.7 Gm Aer.w.adap 1 PUFF INHALATION BID Clopidogrel (Clopidogrel) 75 Mg Tablet 75 MG PO DAILY Glipizide (Glipizide) 5 Mg Tablet 5 MG PO BIDAC Insuln Asp Prt/Insulin Aspart (NovoLOG 70/30 U100 Insulin Flexpen) 100 Unit/Ml Unit 12 UNIT SUBQ BID Isosorbide MN ER (Isosorbide MN ER) 30 Mg Tab.er.24h 30 MG PO DAILY Ketoconazole (Nizoral) 120 Ml Shampoo 120 ML TOP BID Lisinopril (Lisinopril) 5 Mg Tablet 5 MG PO DAILY Metformin (Glucophage) 1,000 Mg Tablet 1,000 MG ORAL BID Metoprolol Tartrate (Metoprolol Tartrate) 75 Mg Tablet 75 MG PO BID Prednisone (PredniSONE) 20 Mg Tablet 40 MG PO DAILY Prednisone (PredniSONE) 20 Mg Tablet 40 MG PO DAILY Prednisone (PredniSONE) 20 Mg Tablet 40 MG PO DAILY Sertraline HCl (Sertraline) 50 Mg Tablet 25 MG PO DAILY Scheduled PRN Albuterol Neb Soln (Albuterol Neb Soln) 2.5 Mg/3 Ml Vial.neb 2.5 MG INHALATION Q4H PRN PRN For Shortness of Breath Albuterol Sulfate (Ventolin HFA Inhaler) 200 Puff/18 Gm Inhaler 1-2 PUFFS INH DIRECTED PRN PRN For Wheezing Benzonatate (Benzonatate) 100 Mg Capsule 100 MG PO TID PRN PRN For Cough Nitroglycerin SL (Nitroglycerin SL) 0.4 Mg Tab.subl 0.4 MG SL Q5MIN PRN PRN For Chest Pain General Time Seen by MD: 18:13 Chief Complaint Chest pain Hx Obtained From: Patient Arrived By: Walk-in Sudden in Onset?: Yes Onset Occurred: 1 - 4 hours ago Symptom Duration: Since onset Location: : Substernal Quality: Painful Severity: Current: No pain currently Severity: Maximum: Moderate Recent Healthcare: Recent doctor visit, Recent testing, Previous diagnosis, Prior workup Similar Sx Previous: Yes Past Medical History Past Medical History Notes: PCP: Dr. James Frequent hospital admissions for COPD exacerbations Often refuses treatment and is abusive to staff. Often leaves AMA. 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, echo August 2013 with an decreased left ventricular ejection fraction History of nonadherence to medical treatment Chronic venous insufficiency Hx cellulitis Reports: COPD, Congestive heart failure, Diabetes mellitus, Hyperlipidemia, Hypertension Reports: Obesity Past Surgical History None Family History Reports: Diabetes mellitus Smoking History Former Smoker Social History Patient is currently living in his car Alcohol Use: Denies alcohol use Drug Use: Denies drug use Other Social History: Poor social support, Frequent ED visitor, Homeless 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 Physical Exam Initial Vital Signs Vital Signs (First) Date Time Temp Pulse Resp B/P Pulse Ox O2 Delivery O2 Flow Rate FiO2 10/24/16 17:07 36.4 118 20 172/105 93 Room Air Initial VS: Reviewed, Vital signs abnormal Head / Eyes: Atraumatic, Normocephalic, PERRL ENT: Mucous membranes moist, Conjunctiva normal, No scleral icterus Neck: Supple, Full range of motion Extremities: Vascular intact, Neuro intact, No swelling, No tenderness Skin: Warm, Dry, No cyanosis Neurologic: Alert, Oriented, Nonfocal Psychiatric: Mood/affect normal, Behavior normal, Normal thought content General/Constitutional: Awake, Alert, No acute distress, Cooperative, Not toxic appearing Respiratory / Chest: Atraumatic, Breath sounds = bilat, No respiratory distress , No retractions, No stridor, No chest tenderness, No chest wall deformity, No crepitus Faint wheezes bilaterally Good air movement Cardiovascular: Heart rate NL, Regular rhythm, Heart sounds NL, No gallop, No murmurs, No rubs, Cap refill not delayed, Peripheral circulation NL Abdomen: Atraumatic, Soft, Non-tender Interpretation & Diagnostics Lab Results Interpretation Result Diagram: 10/24/168 10/24/168 Test 10/24/16 18:38 White Blood Count 7.9th/mm3 (3.8-10.1) Red Blood Count 5.53mil/mm3 (4.40-5.80) Hemoglobin 15.3g/dL (13.8-17.2) Hematocrit 46.3% (41.0-50.0) Mean Corpuscular Volume 83.7fL (81-100) Mean Corpuscular Hemoglobin 27.7pg (27.0-35.0) Mean Corpuscular Hemoglobin Concent 33.0% (32.0-37.0) Red Cell Distribution Width 14.9% (12.3-15.4) Platelet Count 278bil/L (150-400) Neutrophils (%) (Auto) 64.8% (40-74) Lymphocytes (%) (Auto) 17.8% (14-46) Monocytes (%) (Auto) 8.3% (4-12) Eosinophils (%) (Auto) 6.8% (0-5) Basophils (%) (Auto) 0.8% (0-3) D-Dimer < 0.5mg/L (<0.50) Sodium Level 139mEq/L (134-144) Potassium Level 4.8mEq/L (3.5-5.2) Chloride Level 100mEq/L (97-108) Carbon Dioxide Level 24mmol/L (18-29) Blood Urea Nitrogen 21mg/dL (8-27) Creatinine 0.76mg/dL (0.76-1.27) Estimat Glomerular Filtration Rate 109mL/min (>59) Glucose Level 288mg/dL (60-99) Calcium Level 9.4mg/dL (8.5-10.1) Magnesium Level 1.9mg/dL (1.6-2.6) Total Bilirubin 0.4mg/dL (0.0-1.2) Aspartate Amino Transf (AST/SGOT) 13U/L (0-50) Alanine Aminotransferase (ALT/SGPT) 14U/L (0-44) Alkaline Phosphatase 64U/L (25-160) Troponin T < 0.010ug/L (0.0-0.011) Total Protein 6.7g/dL (6.4-8.4) Albumin 4.2g/dL (3.4-5.0) ECG Interpretation ECG Interpretation: Sinus tachycardia rate [address] ST depression isolated to V6 Unchanged from previous Time: 18:21 Interpreted by: ED physician Normal ECG Interpretation: No acute ischemic changes ECG Interpretation: Repeat EKG during CP. Sinus tachycardia rate [address] elevations in V1 and V2 are now apparent Not drastically changed from previous Time: 18:55 Interpreted by: ED physician X-Ray Chest Interpretation Chest Xray Interpretation: IMPRESSION: Diffuse scarring/atelectasis. No acute disease Dictated by: Malcom Du M.D. on 10/24/2016 at 17:39 Approved by: Malcom Du M.D. on 10/24/2016 at 17:39 View: Portable, 1 view Interpretation / Wet Read by: Interpret - Radiologist Re-Eval/Medical Decision Med Decision/Clinical Course 66-year-old male with contacted a past medical history, VA, diabetes, COPD, CABG presenting with chest pain earlier today. He reports it lasted approximately an hour. It resolved prior to arrival. Was nonexertional he had no associated symptoms. No EKG changes. His troponins are negative. I recommended a repeat troponin but patient refused and wanted to go home. He left prior to repeat labs. Return precautions given. Time of Eval: 20:39 Re-Evaluation/Progress Note: Pt rechecked. He is declining to wait for repeat trop at this time. Informed pt of plan for treatment. Pt understands and agrees with plan for treatment. F/U instructions and RTER warnings given. All questions addressed. Counseled Regarding: Diagnosis, Lab results, Need for follow-up, When/why to return to ED Discharge & Departure Primary Impression: Chest pain Chest pain type: unspecified Qualified Code: R07.9 - Chest pain, unspecified Disposition: Home Discharge Condition All VS Reviewed: Yes Condition: Stable Patient Instructions: Chest Pain (ED) Additional Instructions: Your labs were normal. You opted to leave prior to the repeat troponin value. Return to the emergency department for increased or persistent chest pain, increasing shortness of breath, high fever, or for other concerning symptoms. Follow-up with your primary care doctor on Wednesday. Referrals: Yumiko James MD (PCP) Anushaibelizabeth Attestation Portions of this note were transcribed by Ramakrishna Clay. I, Dr. Howell, personally performed the history, physical exam and medical decision-making; I reviewed and confirmed the accuracy of the information in the transcribed note. Signed by Raimundo Lombardi, 10/24/16 - 1830 copies to: Yumiko James MD, Ben M MD Oct 24, 2016 18:15 RAMAKRISHNA CLAY Oct 24, 2016 18:22
[2016-10-24 18:42] LABS: BASOPHILS % (AUTO) 0.8 % (0-3); EOSINOPHILS % (AUTO) 6.8 % (0-5); MONOCYTES % (AUTO) 8.3 % (4-12); Mean Corpuscular Hemoglobin 27.7 pg (27.0-35.0); Mean Corpuscular Volume 83.7 fL (81-100); NEUTROPHILS % (AUTO) 64.8 % (40-74); Platelet Count 278 bil/L (150-400)
[2016-10-24 18:51] VITALS: BP 115/71; PULSE 124; RESP 22; O2SAT 96
[2016-10-24 19:14] LABS: TROPONIN T < 0.010 ug/L (0.0-0.011)
[2016-10-24 19:25] LABS: Magnesium 1.9 mg/dL (1.6-2.6)
[2016-10-24 21:22] VITALS: BP 112/80; PULSE 108; O2SAT 93
== END 2016-10-24 21:23 | disposition home or self-care (01) ==
LOC: SED 17:05
DX: R07.2 Precordial pain (principal); I11.0 Hypertensive heart disease with heart failure; E11.59 Type 2 diabetes mellitus with other circulatory complications; I50.9 Heart failure, unspecified; I25.10 Atherosclerotic heart disease of native coronary artery without angina pectoris; I25.2 Old myocardial infarction; J44.9 Chronic obstructive pulmonary disease, unspecified; E78.5 Hyperlipidemia, unspecified; Z95.1 Presence of aortocoronary bypass graft; Z79.4 Long term (current) use of insulin; Z79.82 Long term (current) use of aspirin; Z79.84 Long term (current) use of oral hypoglycemic drugs; Z87.891 Personal history of nicotine dependence; Z59.0 Homelessness; Z88.1 Allergy status to other antibiotic agents

== ENCOUNTER 2016-10-27 19:19 | Inpatient (IN) | payer MEDICARE ==
[~2016-10-27] VITALS: Ht 170.2 cm; Wt 103.9 kg
[2016-10-27 19:27] VITALS: PULSE 134; RESP 28; O2SAT 91
[2016-10-27 20:02] LABS: BASOPHILS % (AUTO) 0.4 % (0-3); EOSINOPHILS % (AUTO) 7.2 % (0-5); MONOCYTES % (AUTO) 10.6 % (4-12); Mean Corpuscular Hemoglobin 28.5 pg (27.0-35.0); Mean Corpuscular Volume 85.4 fL (81-100); NEUTROPHILS % (AUTO) 65.2 % (40-74); Platelet Count 237 bil/L (150-400)
[2016-10-27 20:38] LABS: Magnesium 1.9 mg/dL (1.6-2.6); TROPONIN T < 0.010 ug/L (0.0-0.011)
[2016-10-27 20:42] VITALS: BP 124/84; PULSE 121; PULSE 31; RESP 31; O2SAT 86
[2016-10-27 20:44] VITALS: O2SAT 92
[2016-10-27] MEDS ORDERED: Albuterol-Ipratropium 3 mL Inhalation Solution ONE (21:22)
--- NOTE | 2016-10-27 21:31 | ED.REPORT ---
HPI-Chest Pain 40 and Over Date of Service Oct 27, 2016 ED Provider: Eliza Quintero MD Patient is a 66 year old male with a history of frequent ED visits, COPD, and CAD who presents to the ED complaining of shortness of breath onset 1820 this afternoon while sitting in his car. Associated symptoms include chest pain. He denies lightheadedness, diaphoresis, cough or any other symptoms. He took a DuoNeb treatment in the waiting room. Nursing Notes Stated Complaint: CHEST PAIN Chief Complaint: Chest Pain Nursing Notes Reviewed: Yes Allergies: Coded Allergies: vancomycin (Verified Allergy, Intermediate, Rash,Itching,, 10/27/16) Per Q: Pt should tolerates vancomycin as long as the rate is slow Scheduled Albuterol HFA (Proair HFA) 8.5 Gm Hfa.aer.ad 2 PUFFS INHALATION Q4H Amlodipine (Amlodipine) 5 Mg Tablet 5 MG PO DAILY Amoxicillin/Clav K 875-125 mg (Augmentin 875-125 mg) 1 Each Tablet 1 TABLET PO BID Aspirin Chew (Aspirin Chew) 81 Mg Chew 81 MG PO DAILY Atorvastatin Calcium (Atorvastatin Calcium) 20 Mg Tablet 20 MG PO HS Beclomethasone Dipropionate (Qvar) 8.7 Gm Aer.w.adap 1 PUFF INHALATION BID Clopidogrel (Clopidogrel) 75 Mg Tablet 75 MG PO DAILY Glipizide (Glipizide) 5 Mg Tablet 5 MG PO BIDAC Insuln Asp Prt/Insulin Aspart (NovoLOG 70/30 U100 Insulin Flexpen) 100 Unit/Ml Unit 12 UNIT SUBQ BID Isosorbide MN ER (Isosorbide MN ER) 30 Mg Tab.er.24h 30 MG PO DAILY Ketoconazole (Nizoral) 120 Ml Shampoo 120 ML TOP BID Lisinopril (Lisinopril) 5 Mg Tablet 5 MG PO DAILY Metformin (Glucophage) 1,000 Mg Tablet 1,000 MG ORAL BID Metoprolol Tartrate (Metoprolol Tartrate) 75 Mg Tablet 75 MG PO BID Prednisone (PredniSONE) 20 Mg Tablet 40 MG PO DAILY Prednisone (PredniSONE) 20 Mg Tablet 40 MG PO DAILY Prednisone (PredniSONE) 20 Mg Tablet 40 MG PO DAILY Sertraline HCl (Sertraline) 50 Mg Tablet 25 MG PO DAILY Scheduled PRN Albuterol Neb Soln (Albuterol Neb Soln) 2.5 Mg/3 Ml Vial.neb 2.5 MG INHALATION Q4H PRN PRN For Shortness of Breath Albuterol Sulfate (Ventolin HFA Inhaler) 200 Puff/18 Gm Inhaler 1-2 PUFFS INH DIRECTED PRN PRN For Wheezing Benzonatate (Benzonatate) 100 Mg Capsule 100 MG PO TID PRN PRN For Cough Nitroglycerin SL (Nitroglycerin SL) 0.4 Mg Tab.subl 0.4 MG SL Q5MIN PRN PRN For Chest Pain General Time Seen by MD: 21:26 Chief Complaint Shortness of breath Hx Obtained From: Patient Arrived By: Wheelchair Sudden in Onset?: Yes Onset Occurred: 1 - 4 hours ago Symptom Duration: Since onset Risk Factors )( CAD Risk Stratification Known CAD Risk factors N/A )( TAD Risk Stratification HypertensionNo Risk factors reviewed )( PE Risk Stratification No , No Previous DVT, No Previous PE, No Surgery Last 60 Days Risk factors reviewed Past Medical History Past Medical History Notes: PCP: Dr. James Frequent hospital admissions for COPD exacerbations Often refuses treatment and is abusive to staff. Often leaves AMA. 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, echo August 2013 with an decreased left ventricular ejection fraction History of nonadherence to medical treatment Chronic venous insufficiency Hx cellulitis Reports: COPD, Congestive heart failure, Diabetes mellitus, Hyperlipidemia, Hypertension Reports: Obesity Past Surgical History None Family History Reports: Diabetes mellitus Smoking History Former Smoker Social History Patient is currently living in his car Alcohol Use: Denies alcohol use Drug Use: Denies drug use Other Social History: Poor social support, Frequent ED visitor, Homeless 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 Physical Exam Initial Vital Signs Vital Signs (First) Date Time Temp Pulse Resp B/P Pulse Ox O2 Delivery O2 Flow Rate FiO2 10/27/16 19:27 36.3 134 28 91 Room Air 10/27/16 20:42 124/84 10/27/16 20:44 3 Initial VS: Reviewed, Vital signs normal Head / Eyes: Atraumatic, Normocephalic Neck: Full range of motion Skin: Warm, Dry Neurologic: Alert, Oriented, Nonfocal Psychiatric: Mood/affect normal, Behavior normal, Normal thought content General/Constitutional: Awake, Alert, No acute distress, Well developed Respiratory / Chest: Atraumatic Decreased airation Cardiovascular: Peripheral circulation NL No change to chronic edema Abdomen: Soft, Non-tender Interpretation & Diagnostics Lab Results Interpretation Result Diagram: 10/27/16195210/27/161952 Test 10/27/16 19:53 10/27/16 19:58 10/27/16 21:56 10/27/16 22:10 White Blood Count 8.1th/mm3 (3.8-10.1) Red Blood Count 5.33mil/mm3 (4.40-5.80) Hemoglobin 15.2g/dL (13.8-17.2) Hematocrit 45.5% (41.0-50.0) Mean Corpuscular Volume 85.4fL (81-100) Mean Corpuscular Hemoglobin 28.5pg (27.0-35.0) Mean Corpuscular Hemoglobin Concent 33.4% (32.0-37.0) Red Cell Distribution Width 14.9% (12.3-15.4) Platelet Count 237bil/L (150-400) Neutrophils (%) (Auto) 65.2% (40-74) Lymphocytes (%) (Auto) 15.6% (14-46) Monocytes (%) (Auto) 10.6% (4-12) Eosinophils (%) (Auto) 7.2% (0-5) Basophils (%) (Auto) 0.4% (0-3) Sodium Level 138mEq/L (134-144) Potassium Level 5.1mEq/L (3.5-5.2) Chloride Level 98mEq/L (97-108) Carbon Dioxide Level 25mmol/L (18-29) Blood Urea Nitrogen 22mg/dL (8-27) Creatinine 1.26mg/dL (0.76-1.27) Estimat Glomerular Filtration Rate 61mL/min (>59) Glucose Level 384mg/dL (60-99) Calcium Level 8.9mg/dL (8.5-10.1) Magnesium Level 1.9mg/dL (1.6-2.6) Total Bilirubin 0.4mg/dL (0.0-1.2) Aspartate Amino Transf (AST/SGOT) 12U/L (0-50) Alanine Aminotransferase (ALT/SGPT) 13U/L (0-44) Alkaline Phosphatase 74U/L (25-160) Total Protein 6.8g/dL (6.4-8.4) Albumin 4.0g/dL (3.4-5.0) Hold Ramires Top Tube Received (Received) Hold Urine Received (Received) Hold Purple Top Tube Received (Received) Test 10/27/16 23:00 Troponin T 0.031ug/L (0.0-0.011) ECG Interpretation ECG Interpretation: sinus tachy rate 125 Time: 21:48 Interpreted by: ED physician Re-Eval/Medical Decision Med Decision/Clinical Course The patient presents with chest pain has a cardiac history however he denies having cardiac history. He is known to be noncompliant. He used nitroglycerin here but the other medications. His second troponin was mildly elevated. He will have a repeat troponin if it continues to rise L be admitted to the hospital although I am not sure what benefit it would do given he is generally noncompliant. The patient is signed out to my colleague Dr. Monahan. Other differential diagnoses considered were pulmonary embolus, pneumonia, esophageal spasm, and musculoskeletal pain. Time of Eval: 23:40 Re-Evaluation/Progress Note: Rechecked patient. Discussed plan for admission if troponin is elevated on next draw. Patient understands and agrees with plan. All questions addressed at this time. Discharge & Departure Shift Change Sign-Out Patient Care Transferred: Yes Discussed Complaint(s): Yes Laboratory Evaluation: Ordered, not yet done Imaging Studies: Ordered, not yet done Transfer of care to Dr. Monahan at 0000. Primary Impression: Chest pain Chest pain type: unspecified Qualified Code: R07.9 - Chest pain, unspecified Referrals: Yumiko James MD (PCP) Care Transferred to: Dr. Monahan Care Transferred at: 00:00 Scribe Attestation Portions of this note were transcribed by Jolynn Anne. I, Dr. Quintero personally performed the history, physical exam and medical decision-making; I reviewed and confirmed the accuracy of the information in the transcribed note. Signed by: Jolynn Anne 10/27/16, 2353 Eliza Quintero MD Oct 27, 2016 21:31 JOLYNN ANNE Oct 27, 2016 21:43
[2016-10-27] MEDS ORDERED: MeTOProlol 1 mg/mL 5 mL Inj IVPUSH ONE (21:50)
[2016-10-27] MEDS ORDERED: Alum-Mag Hydrox-Simeth 30 mL Suspension PO ONE (21:50)
[2016-10-27 22:08] VITALS: BP 132/86; PULSE 112; RESP 28; O2SAT 94
[2016-10-28] VITALS (11 sets, daily range): BP systolic 109–152; BP diastolic 65–92; PULSE 78–109; RESP 17–20; O2SAT 88–94
[2016-10-28] MEDS ORDERED: Senna-Docusate 8.6-50 mg Tablet PO PRN (02:15)
[2016-10-28] MEDS ORDERED: Polyethylene Glycol (PEG) 17 Gm Powder PO PRN (02:15)
[2016-10-28] MEDS ORDERED: Alum-Mag Hydrox-Simeth 30 mL Suspension PO PRN (02:15)
[2016-10-28] MEDS ORDERED: Ondansetron 2 mg/mL 2 mL Inj IVPUSH PRN (02:15)
[2016-10-28] MEDS ORDERED: Atropine 1 mg/10 mL (Code) Syringe IVPUSH PRN (02:15)
[2016-10-28] MEDS ORDERED: Heparin 5,000 Unit/mL Inj IVPUSH ONE (02:15)
[2016-10-28] MEDS ORDERED: Albuterol HFA 60 Puff 8 Gm Inhaler INHALATION SCH (02:20)
[2016-10-28] MEDS ORDERED: _Albuterol 2.5 mg/3 mL Neb NEB PRN (02:20)
--- NOTE | 2016-10-28 02:28 | PCM.HPMED ---
Subjective Date of Service Oct 28, 2016 Primary Provider: Admitting Physician: Kimmy Barnett MD Primary Care Physician: Yumiko James MD Attending Physician: Kimmy Barnett MD Admit Status: From the Emergency Department, Full Admit, [facility] Telemetry Chief Complaint: Chest pain History of Present Illness: This 66-year-old male past medical history significant for noncompliance, history of COPD, history of coronary artery disease. He presents today to the emergency room with complaints of substernal chest pain. The denies any change in his respiratory status. Denies cough denies any fevers or chills. He denies any nausea vomiting, denies lightheadedness denies any diaphoresis. His evaluation in the emergency room includes a series of troponins which are increasing ,see labs for results. Chest x-ray did not reveal any acute abnormalities. Review of Systems: All other review of systems her on reviewed and are negative except for as in history of present illness. Allergies Coded Allergies: vancomycin (Verified Allergy, Intermediate, Rash,Itching,, 10/27/16) Per Q: Pt should tolerates vancomycin as long as the rate is slow Home Medications Scheduled Albuterol HFA (Proair HFA) 8.5 Gm Hfa.aer.ad 2 PUFFS INHALATION Q4H Amlodipine (Amlodipine) 5 Mg Tablet 5 MG PO DAILY Amoxicillin/Clav K 875-125 mg (Augmentin 875-125 mg) 1 Each Tablet 1 TABLET PO BID Aspirin Chew (Aspirin Chew) 81 Mg Chew 81 MG PO DAILY Atorvastatin Calcium (Atorvastatin Calcium) 20 Mg Tablet 20 MG PO HS Beclomethasone Dipropionate (Qvar) 8.7 Gm Aer.w.adap 1 PUFF INHALATION BID Clopidogrel (Clopidogrel) 75 Mg Tablet 75 MG PO DAILY Glipizide (Glipizide) 5 Mg Tablet 5 MG PO BIDAC Insuln Asp Prt/Insulin Aspart (NovoLOG 70/30 U100 Insulin Flexpen) 100 Unit/Ml Unit 12 UNIT SUBQ BID Isosorbide MN ER (Isosorbide MN ER) 30 Mg Tab.er.24h 30 MG PO DAILY Ketoconazole (Nizoral) 120 Ml Shampoo 120 ML TOP BID Lisinopril (Lisinopril) 5 Mg Tablet 5 MG PO DAILY Metformin (Glucophage) 1,000 Mg Tablet 1,000 MG ORAL BID Metoprolol Tartrate (Metoprolol Tartrate) 75 Mg Tablet 75 MG PO BID Prednisone (PredniSONE) 20 Mg Tablet 40 MG PO DAILY Prednisone (PredniSONE) 20 Mg Tablet 40 MG PO DAILY Prednisone (PredniSONE) 20 Mg Tablet 40 MG PO DAILY Sertraline HCl (Sertraline) 50 Mg Tablet 25 MG PO DAILY Scheduled PRN Albuterol Neb Soln (Albuterol Neb Soln) 2.5 Mg/3 Ml Vial.neb 2.5 MG INHALATION Q4H PRN PRN For Shortness of Breath Albuterol Sulfate (Ventolin HFA Inhaler) 200 Puff/18 Gm Inhaler 1-2 PUFFS INH DIRECTED PRN PRN For Wheezing Benzonatate (Benzonatate) 100 Mg Capsule 100 MG PO TID PRN PRN For Cough Nitroglycerin SL (Nitroglycerin SL) 0.4 Mg Tab.subl 0.4 MG SL Q5MIN PRN PRN For Chest Pain This list was obtained from the ER note PMH Past Medical History Notes: PCP: Dr. James Frequent hospital admissions for COPD exacerbations Often refuses treatment and is abusive to staff. Often leaves AMA. 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, echo August 2013 with an decreased left ventricular ejection fraction History of nonadherence to medical treatment Chronic venous insufficiency Hx cellulitis Reports: COPD, Congestive heart failure, Diabetes mellitus, Hyperlipidemia, Hypertension Reports: Obesity Surgical History Past Surgical History None Family History Positive for coronary artery disease Social History Hx Alcohol Use: No Hx Substance Use: No Hx Tobacco Use: Yes (quit 9 years ago) Smoking Status: Former Smoker Living Arrangement: Alone Homeless Exam Vital Signs Vital Sign - Last Date Time Temp Pulse Resp B/P Pulse Ox O2 Delivery O2 Flow Rate FiO2 10/28/16 01:54 109 17 152/90 Nasal Cannula 3 10/27/16 22:08 94 10/27/16 20:42 37.2 Exam Constitutional: Elderly male who appears disheveled Head: Normocephalic atraumatic Neck: No adenopathy Chest: Scant scattered expiratory wheezes Cor: Regular rate and rhythm S1-S2 without murmur Abdomen: Soft nontender bowel sounds present Skin: No rashes except for lower extremity stasis dermatitis Extremities right leg is 1+ pedal edema patient will not let me examine his left leg Psych: Angry male who is argumentative Neuro: Alert and oriented 3, motor strength is intact bilaterally Lab and Diagnostics Labs Laboratory Tests 72 Hours Test 10/27/16 19:53 10/27/16 19:58 10/27/16 21:56 10/27/16 22:10 White Blood Count 8.1th/mm3 (3.8-10.1) Red Blood Count 5.33mil/mm3 (4.40-5.80) Hemoglobin 15.2g/dL (13.8-17.2) Hematocrit 45.5% (41.0-50.0) Mean Corpuscular Volume 85.4fL (81-100) Mean Corpuscular Hemoglobin 28.5pg (27.0-35.0) Mean Corpuscular Hemoglobin Concent 33.4% (32.0-37.0) Red Cell Distribution Width 14.9% (12.3-15.4) Platelet Count 237bil/L (150-400) Neutrophils (%) (Auto) 65.2% (40-74) Lymphocytes (%) (Auto) 15.6% (14-46) Monocytes (%) (Auto) 10.6% (4-12) Eosinophils (%) (Auto) 7.2% (0-5) Basophils (%) (Auto) 0.4% (0-3) Sodium Level 138mEq/L (134-144) Potassium Level 5.1mEq/L (3.5-5.2) Chloride Level 98mEq/L (97-108) Carbon Dioxide Level 25mmol/L (18-29) Blood Urea Nitrogen 22mg/dL (8-27) Creatinine 1.26mg/dL (0.76-1.27) Estimat Glomerular Filtration Rate 61mL/min (>59) Glucose Level 384mg/dL (60-99) Calcium Level 8.9mg/dL (8.5-10.1) Magnesium Level 1.9mg/dL (1.6-2.6) Total Bilirubin 0.4mg/dL (0.0-1.2) Aspartate Amino Transf (AST/SGOT) 12U/L (0-50) Alanine Aminotransferase (ALT/SGPT) 13U/L (0-44) Alkaline Phosphatase 74U/L (25-160) Troponin T < 0.010ug/L (0.0-0.011) 0.012ug/L (0.0-0.011) Total Protein 6.8g/dL (6.4-8.4) Albumin 4.0g/dL (3.4-5.0) Hold Ramires Top Tube Received (Received) Hold Urine Received (Received) Hold Purple Top Tube Received (Received) Hold Midway Top Tube Received (Received) Test 10/27/16 23:00 Troponin T 0.031ug/L (0.0-0.011) Hold Midway Top Tube Received (Received) Result Diagram: 10/27/16195210/27/161952 12-lead ECG EKG shows per ER report as I cannot locate images at this time of sinus tachycardia at a rate of 125 Assessment & Plan # NSTEMI, acute, present on admission - IV heparin drip - Nitro paste topically every 6 hours - Echocardiogram in a.m. - Contact cardiology in a.m. - Serial cardiac enzymes # COPD, chronic, present on admission - Appears to be stable at this time # Type II diabetes, chronic, present on admission Placed on subcutaneous insulin protocol and check 4 times a day blood sugars # DVT prophylaxis - Patient is on IV heparin drip # CODE STATUS Per previous admission patient wishes DNR/DNI VTE Prophylaxis: Other Resuscitation Status: DNR/DNI:Do Not Resuscitate/Intubate Time spent 60 minutes Kimmy Barnett MD Oct 28, 2016 02:28
[2016-10-28] MEDS ORDERED: Glucose 40% Oral Gel 15 Gm Tube PO PRN (02:35)
[2016-10-28] MEDS: Heparin 25K Unit/500mL 0.45 NS 25,000 UNIT in IV Premix 1 EACH IV SCH ×2 (04:17→23:27)
[2016-10-28] MEDS: Nitroglycerin 2% 1 Gm Ointment TOPICAL SCH ×4 (04:18→20:56)
[2016-10-28] MEDS: 0.9% Sodium Chloride 1,000 ML IV SCH ×2 (04:18→18:02)
--- NOTE | 2016-10-28 07:48 | NUR ---
Admission note / behavior Pt arrived from ER to [facility] # [id number] approx. at 0300. Pt has significant Hx for noncompliance. He refuses care. He declines to change into gown and get in bed. He refused skin assessment. Pt uses profane language and verbally abuse staff. Pt was refrained from using profanity and encouraged to be respectful to medical staff. Hospital policy and pts rights discussed and reviewed with pt. Pt stated "I don't give a shit. I can say and do whatever I want". educational interpreter aware. Pt requested to be left alone.
[2016-10-28] MEDS: Sodium Chloride LOK Flush 10 mL Syringe IVFLUSH SCH ×3 (08:30→23:57)
[2016-10-28] MEDS: Insulin LISPRO 300 Unit/3 mL Inj SUBQ SCH ×4 (08:39→21:03)
[2016-10-28] MEDS ORDERED: ALBU2.5V4 INHALATION (08:56)
[2016-10-28] MEDS ORDERED: ALBU8.5H2 INHALATION (08:56)
[2016-10-28] MEDS ORDERED: HYDR30CR98 RC (09:03)
[2016-10-28] MEDS ORDERED: FLUT12AE10 IH (09:03)
[2016-10-28] MEDS ORDERED: SERT20OR6 PO (09:03)
[2016-10-28] MEDS ORDERED: KETO120S3 TP (09:03)
--- NOTE | 2016-10-28 09:11 | PCM.PNMED ---
Subjective Date of Service Oct 28, 2016 Subjective This 66-year-old male past medical history significant for noncompliance, history of COPD, history of coronary artery disease. He presents today to the emergency room with complaints of substernal chest pain. The denies any change in his respiratory status. Denies cough denies any fevers or chills. He denies any nausea vomiting, denies lightheadedness denies any diaphoresis. His evaluation in the emergency room includes a series of troponins which are increasing ,see labs for results. Chest x-ray did not reveal any acute abnormalities. Was cooperative overnight. Denies any CP, SOB, or MARTEL this morning. Exam Vital Signs Vital Sign - Last Date Time Temp Pulse Resp B/P Pulse Ox O2 Delivery O2 Flow Rate FiO2 10/28/16 05:37 36.4 104 20 120/78 91 Room Air 10/28/16 02:58 3 Intake and Output 10/27/16 10/27/16 10/28/16 Cumulative From/Thru 15:00 23:00 07:00 10/27/16 19:27 - 10/28/16 06:20 Intake Total 0 ml 0 ml Output Total 0 ml 0 ml Balance 0 ml 0 ml Intake Oral 0 ml 0 ml Output Urine Total 0 ml 0 ml Exam Constitutional: Well developed Elderly male who appears disheveled and unkempt Head: Normocephalic atraumatic Chest: CTAB, normal resp effort Cor: Regular rate and rhythm Abdomen: Soft, obese, mildly tender to palpation Extremities: Refuses leg examination Psych: Obstinate male who refuses examinations that are uncomfortable to him Neuro: Alert and oriented, moves all extremities equally IVs and Medications Medications Reviewed: Medications were reviewed in detail Lab and Diagnostics Result Diagram: 10/27/16195210/27/161952 12-lead ECG EKG shows per ER report as I cannot locate images at this time of sinus tachycardia at a rate of 125 Assessment & Plan # NSTEMI, acute, present on admission - IV heparin drip - Nitro paste topically every 6 hours prn cp - Echocardiogram in a.m. - Contact cardiology in a.m. - Serial cardiac enzymes - Troponin indeterminate but mildly rising so far - After further discussion, he was amenable to a pharmacologic stress test to evaluate his chest pain. Will plan to do that tomorrow AM. NPO after midnight, no caffeine or Beta blockers in the AM. # COPD, chronic, present on admission - Appears to be stable at this time - Continue home inhalers # Type II diabetes, chronic, present on admission Placed on subcutaneous insulin protocol and check 4 times a day blood sugars # DVT prophylaxis - Patient is on IV heparin drip # CODE STATUS Per previous admission patient wishes DNR/DNI Pain Evaluation: Adequate Pain Control VTE Prophylaxis: Other Resuscitation Status: DNR/DNI:Do Not Resuscitate/Intubate Attending Statement The patient was seen and examined together with Resident / House-staff on and I agree with the history, exam and plan as outlined in the note above. Glenroy Thomas DO Oct 28, 2016 07:40 Hair Fletcher Oct 29, 2016 17:03
--- NOTE | 2016-10-28 09:18 | DRSVH ---
PROCEDURE: X-RAY CHEST ONE VIEW, PORTABLE ([id number]) INDICATIONS: chest pain TECHNIQUE: One view of the chest was acquired. COMPARISON: [facility], CR, XR CHEST 1VW (PORTABLE), 10/24/2016, 17:18. FINDINGS: Surgical changes and devices: None. Lungs and pleura: No pleural effusions or pneumothorax. Lungs are clear, aside from scarring/atelec tasis involving the lung bases which is unchanged. Mediastinum: Mediastinal contours appear normal. Heart size is normal. Bones and chest wall: No suspicious bony lesions. Overlying soft tissues appear unremarkable. IMPRESSION: No acute cardiopulmonary disease. Dictated by: Simba SARMIENTO Interpreted: Macarena Oliver MD on 10/28/2016 at 9:17 Transcribed by: SHANNA on 10/28/2016 at 9:18 Approved by: Macarena Oliver MD, PhD on 10/28/2016 at 17:00
--- NOTE | 2016-10-28 09:51 | NUR ---
Social work note - Initial assessment Vincent High is a 66 yr old admitted for Chest pain - NStemi. EMR reviewed: Pt has Medicare, His PCP is Dr James at [facility]. Pt has DPOA - His Sister but he states she can not be contacted unless Pt can not communicate with doctors and is expected to . See attached CM initial assessment. PRINT LINE OPERATOR met with pt - known from previous admissions. Pt's Consistent Care CM Yin Olivares also in the room. Pt is a readmit from Sep 27 2016. He has had multiple ED visits since September and CHANI report identifies that he has had 53 ED visits this past year. Pt has Chronic lung issues - often is noncompliant with his medications, diet and follow up. He had diabetes and is recommended to have a modified diet. Pt is homeless, living in his car. He has income, has refused to pay for rent in the past. He is wheelchair bound at baseline. He has O2 but rarely uses it. He has a nebulizer that is helpful for him. Pt has income, is resistant to using his income to pay rent. Yin CORTEZ is working to help him obtain stable housing. PRINT LINE OPERATOR explored Pt's questions about cardiac testing - He states that he does not feel he can safely finish a stress test - PRINT LINE OPERATOR and CM explained that the test would likely be a chemical stimulator instead of a treadmill test - Pt states he is willing to have testing. Pt will d/c to his car when medically stable with pt's CM to follow for community resources. SW will continue to follow. Plan: Home to car - has home O2 and nebulizer with follow up at [facility]. DULCE MARIA Acosta Addendum: 10/28/16 at 0959 by AMBER QUIROGA SS Amended: Links added.
[2016-10-28] MEDS: Fluticasone 100 mCg Inhaler INHALATION SCH ×2 (11:10→20:55)
[2016-10-28] MEDS: Heparin 5,000 Unit/mL Inj IVPUSH PRN ×3 (11:25→23:25)
[2016-10-28] MEDS: Albuterol 2.5 mg/3 mL Inhalation Solution NEB PRN (18:03)
--- NOTE | 2016-10-28 19:07 | NUR ---
Behavior Pt has been pleasant most of the time, but has had outbursts (foul language), causing ceramics technician to refuse procedure. Pt has been cooperative otherwise with care. Pt did agree to a shower and let staff wash clothes as they were dirty and spelled of urine. No s/s of bleeding, pt asked to put call light when having had a BM, to gather guaiac, pt refused. Pt has also refused to sleep or get in bed, prefers mark-chair.
[2016-10-29] VITALS (13 sets, daily range): BP systolic 107–138; BP diastolic 70–89; PULSE 79–104; RESP 18–22; O2SAT 90–93
[2016-10-29] MEDS: Albuterol 2.5 mg/3 mL Inhalation Solution NEB PRN ×5 (00:53→17:42)
[2016-10-29] MEDS: Nitroglycerin 2% 1 Gm Ointment TOPICAL SCH ×4 (02:30→20:50)
--- NOTE | 2016-10-29 03:58 | NUR ---
PREPARATION FOR CARDIAC STRESS TEST 10/29/16 AM Last dose of metoprolol was 10/28/16 0840. Last caffeine intake 10/28/16 am. Nitropaste patch removed 10/29/16 @ 0330. All food and drink removed from pts room, made strict NPO @ 0330. At least 2 troponins have been resulted.
--- NOTE | 2016-10-29 05:18 | NUR ---
BEHAVIOR Pt had been appropriate and allowed for care up until approx 0330, when pt was made strict NPO for upcoming cardiac stress test. Pt stated, "I can't go without water, I'm about to walk out of here, you can shove that stress test up your ass. I'll go drink out of the bathroom faucet." Later approx 0500, pt agitated again when lab went in to draw routine and heparin ptt labs. Pt refused lab draw initially, then put television news video editor light. Pt stated, "tell that bitch she can do whatever the hell she needs to do, I'm about to get dressed, I'm am never coming here again." Labs drawn. Pt continues to mumble profanities softly. Staff left room after labs drawn and lights turned off per pts request. Continue to monitor.
[2016-10-29 05:47] LABS: BASOPHILS % (AUTO) 0.9 % (0-3); EOSINOPHILS % (AUTO) 6.7 % (0-5); MONOCYTES % (AUTO) 7.6 % (4-12); Mean Corpuscular Hemoglobin 28.7 pg (27.0-35.0); Mean Corpuscular Volume 85.1 fL (81-100); Platelet Count 211 bil/L (150-400)
[2016-10-29] MEDS: Heparin 5,000 Unit/mL Inj IVPUSH PRN ×3 (06:25→18:30)
[2016-10-29] MEDS: Heparin 25K Unit/500mL 0.45 NS 25,000 UNIT in IV Premix 1 EACH IV SCH ×2 (06:27→18:27)
[2016-10-29] MEDS: Insulin LISPRO 300 Unit/3 mL Inj SUBQ SCH ×4 (07:48→20:46)
[2016-10-29] MEDS: Sodium Chloride LOK Flush 10 mL Syringe IVFLUSH SCH ×2 (07:50→16:30)
--- NOTE | 2016-10-29 09:50 | PCM.PNMED ---
Subjective Date of Service Oct 29, 2016 Subjective Clem denied any CP this morning. He reports his SOB is as usual. He is scheduled for a chemical stress test but he does not want to lay down. Exam Vital Signs Vital Sign - Last Date Time Temp Pulse Resp B/P Pulse Ox O2 Delivery O2 Flow Rate FiO2 10/29/16 05:35 99 10/29/16 05:15 36.2 22 138/83 91 Room Air 10/28/16 02:58 3 Intake and Output 10/28/16 10/28/16 10/29/16 Cumulative From/Thru 15:00 23:00 07:00 10/27/16 19:27 - 10/29/16 05:17 Intake Total 2410 ml 1068 ml 3478 ml Output Total 0 ml Balance 2410 ml 1068 ml 3478 ml Intake Oral 1037 ml 1037 ml IV Total 1373 ml 1068 ml 2441 ml Output Urine Total 0 ml # Voids 8 8 # Bowel Movements 1 1 Exam Constitutional: Well developed Elderly male who appears disheveled and unkempt, sitting upright in chair Head: Normocephalic atraumatic Chest: CTAB, mildly increased resp effort Cor: Regular rate and rhythm Abdomen: Soft, obese Psych: Obstinate male who refuses examinations that are uncomfortable to him Neuro: Alert and oriented, moves all extremities equally IVs and Medications Medications Reviewed: Medications were reviewed in detail Lab and Diagnostics Result Diagram: 10/29/1651410/29/16514 Assessment & Plan # NSTEMI, acute, present on admission - IV heparin drip - Nitro paste topically every 6 hours prn cp - Echocardiogram was not obtained due to patient's refusal to lay down - Cardiology will not consult on patient unless he has been compliant with his medications x 3 months - Serial cardiac enzymes - Troponin indeterminate, had a mild rise and is now decreasing. - Patient was scheduled for chemical stress test, but refused to lay down for the test due to his SOB. # COPD, chronic, present on admission - Appears to be stable at this time - Continue home inhalers # Type II diabetes, chronic, present on admission Placed on subcutaneous insulin protocol and check 4 times a day blood sugars # DVT prophylaxis - Patient is on IV heparin drip # CODE STATUS Per previous admission patient wishes DNR/DNI Pain Evaluation: Adequate Pain Control VTE Prophylaxis: Other Resuscitation Status: DNR/DNI:Do Not Resuscitate/Intubate Attending Statement The patient was seen and examined together with Resident / House-staff on and I agree with the history, exam and plan as outlined in the note above. Glenroy Thomas DO Oct 29, 2016 06:55 Hair Fletcher Oct 29, 2016 17:28
--- NOTE | 2016-10-29 10:56 | NUR ---
Behavior - Stress Test Refused/AM assessment From report, Stress Test scheduled for 0700. Called to verify time, Test was postponed due to refusal of yesterdays ECHO. Test rescheduled for 0845. paged for order to DC heparin during test. Pt very upset with test be rescheduled, using profanities like "shove it up their ass!" Able to calm pt down and be cooperative for test. Pt expresses being upset about changed time table. When Nuc Med came to floor and explained to pt about the test, pt again became obstinate and refused because of the need to lye down for part of the test. Attempted to get pt to cooperate with test, but not willing to lye down due to difficulty breathing. MD notified. Continuing to provide care as pt is willing to tolerate. AM Assessment: During morning assessment, pt not willing to let assess legs or skin. Pt states: "let me worry about my legs, they are my problem." Unable to asses this AM, will try later in shift.
[2016-10-29] MEDS: Fluticasone 100 mCg Inhaler INHALATION SCH ×2 (11:39→20:47)
--- NOTE | 2016-10-29 23:25 | NUR ---
Mentation On entry to room "what the hell is it now", refused assessment. Compliant with glucose monitoring and no c/o cp: "I took care of that already"
[2016-10-30] MEDS: Sodium Chloride LOK Flush 10 mL Syringe IVFLUSH SCH ×2 (00:14→07:41)
[2016-10-30] MEDS: Nitroglycerin 2% 1 Gm Ointment TOPICAL SCH ×2 (00:16→08:17)
[2016-10-30 00:20] VITALS: PULSE 83; RESP 20; O2SAT 91
[2016-10-30] MEDS: Albuterol 2.5 mg/3 mL Inhalation Solution NEB PRN (00:20)
[2016-10-30] MEDS: Heparin 5,000 Unit/mL Inj IVPUSH PRN ×2 (01:00→07:02)
--- NOTE | 2016-10-30 01:39 | NUR ---
VITALS Pt refused vital signs, RN Aware Addendum: 10/30/16 at 0139 by TOOTIE BARRIENTOS CNA Amended: Links added.
--- NOTE | 2016-10-30 05:48 | NUR ---
VITALS Pt refused vital signs, became very upset, yelling and swearing. RN Aware Addendum: 10/30/16 at 0549 by TOOTIE BARRIENTOS CNA Amended: Links added.
[2016-10-30 05:59] VITALS: PULSE 82
[2016-10-30 08:00] VITALS: PULSE 86
[2016-10-30 08:13] VITALS: BP 140/85; PULSE 86; RESP 18; O2SAT 92
[2016-10-30] MEDS: Insulin LISPRO 300 Unit/3 mL Inj SUBQ SCH (08:14)
[2016-10-30] MEDS: Fluticasone 100 mCg Inhaler INHALATION SCH (08:14)
[2016-10-30 09:37] VITALS: BP 123/66; PULSE 82; RESP 20; O2SAT 92
--- NOTE | 2016-10-30 10:14 | PCM.DIMED ---
Discharge Instructions Date of Service Oct 30, 2016 Dates of Hospitalization Oct 28, 2016 at 02:14 Discharge Diagnosis Discharge Diagnosis Primary diagnosis Non ST Elevation IA Secondary diagnosis COPD Type II Diabetes Diet Low fat, Low Sodium, Diabetic Activity No restrictions Call your provider Fever or Chills, Shortness of breath, Chest pain Patient Instructions Take your medications as instructed to prevent you having a heart attack Continue using your oxygen Go to the Emergency room if you have trouble breathing, fever or chills and chest pain Follow-up Provider: Yumiko James MD Follow-up with PCP in: 1 week Neno Gonzalez MD Oct 30, 2016 10:13
--- NOTE | 2016-10-30 10:14 | NUR ---
Social Work: Discharge Data: Pt is on day 2 of hospitalization. EMR reviewed. D/C orders are in. Pt has Home O2 currently. No d/c planning needs at this time. MUSIC BOX MECHANIC will continue to follow if needs arise. Assessment: Homeless pt independent at baseline. Plan: Pt will d/c back to community in car today. No d/c planning needs at this time. MUSIC BOX MECHANIC will continue to follow if needs arise. SURESH Villarreal
--- NOTE | 2016-10-30 10:26 | PCM.DC.MED ---
Discharge Summary Date of Service Oct 30, 2016 Dates of Hospitalization Date of Hospital Admission Oct 28, 2016 at 02:14 Date of Discharge: Oct 30, 2016 Providers: Admitting Physician: Kimmy Barnett MD Primary Care Physician: Yumiko James MD Attending Physician: Kimmy Barnett MD Diagnosis at Time of Discharge Diagnosis at Time of Discharge Primary diagnosis Non ST Elevation MS Secondary diagnosis COPD with chronic hypoxia respiratory failure Type II Diabetes Consultations None Brief History This 66-year-old male past medical history significant for noncompliance, history of COPD, history of coronary artery disease. He presents today to the emergency room with complaints of substernal chest pain. The denies any change in his respiratory status. Denies cough denies any fevers or chills. He denies any nausea vomiting, denies lightheadedness denies any diaphoresis. His evaluation in the emergency room includes a series of troponins which are increasing ,see labs for results. Chest x-ray did not reveal any acute abnormalities. Hospital Course NSTEMI, acute, present on admission - IV heparin drip was continued and stopped today after 48 hours - Echocardiogram was not obtained due to patient's refusal to lay down - Cardiology will not consult on patient unless he has been compliant with his medications x 3 months - Serial cardiac enzymes - Troponin indeterminate, had a mild rise and is now decreasing. - Patient was scheduled for chemical stress test, but refused to lay down for the test due to his SOB. - Medical therapy recommended however compliance on the patient's part is still an issue COPD with chronic respiratory failure - Appears to be stable during admission with no evidence of acute exacerbation - Continue home inhalers Type II diabetes, chronic Placed on subcutaneous insulin protocol and check 4 times a day blood sugars - resumed Glipizide and Metformin on discharge Exam Vital Signs (Last) Date Time Temp Pulse Resp B/P Pulse Ox O2 Delivery O2 Flow Rate FiO2 10/30/16 09:37 36.4 82 20 123/66 92 Room Air 10/28/16 02:58 3 Test 10/27/16 19:53 10/27/16 19:58 10/27/16 21:56 10/27/16 22:10 Total Bilirubin 0.4mg/dL (0.0-1.2) Aspartate Amino Transf (AST/SGOT) 12U/L (0-50) Alanine Aminotransferase (ALT/SGPT) 13U/L (0-44) Alkaline Phosphatase 74U/L (25-160) Total Protein 6.8g/dL (6.4-8.4) Albumin 4.0g/dL (3.4-5.0) Hold [place] Top Tube Received (Received) Hold Urine Received (Received) Hold Purple Top Tube Received (Received) Hemoglobin A1c 10.5% (4.8-5.6) Test 10/27/16 23:00 10/28/16 08:04 10/28/16 14:00 10/29/16 05:15 Hold [place] Top Tube Received (Received) Magnesium Level 2.3mg/dL (1.6-2.6) Troponin T 0.030ug/L (0.0-0.011) White Blood Count 6.7th/mm3 (3.8-10.1) Red Blood Count 4.78mil/mm3 (4.40-5.80) Hemoglobin 13.7g/dL (13.8-17.2) Hematocrit 40.7% (41.0-50.0) Mean Corpuscular Volume 85.1fL (81-100) Mean Corpuscular Hemoglobin 28.7pg (27.0-35.0) Mean Corpuscular Hemoglobin Concent 33.7% (32.0-37.0) Red Cell Distribution Width 14.9% (12.3-15.4) Platelet Count 211bil/L (150-400) Neutrophils (%) (Auto) 58.0% (40-74) Lymphocytes (%) (Auto) 25.0% (14-46) Monocytes (%) (Auto) 7.6% (4-12) Eosinophils (%) (Auto) 6.7% (0-5) Basophils (%) (Auto) 0.9% (0-3) Sodium Level 136mEq/L (134-144) Potassium Level 4.7mEq/L (3.5-5.2) Chloride Level 99mEq/L (97-108) Carbon Dioxide Level 22mmol/L (18-29) Blood Urea Nitrogen 20mg/dL (8-27) Creatinine 0.71mg/dL (0.76-1.27) Estimat Glomerular Filtration Rate 118mL/min (>59) Glucose Level 237mg/dL (60-99) Calcium Level 8.7mg/dL (8.5-10.1) Triglycerides Level 226mg/dL (0-149) Cholesterol Level 195mg/dL (100-199) LDL Cholesterol, Calculated 99.800mg/dL (0-99) VLDL Cholesterol 45.200mg/dL HDL Cholesterol 50mg/dL (>39) Cholesterol/HDL Ratio 3.90 (0.0-4.4) Test 10/30/16 05:20 Activated Partial Thromboplast Time 46.7sec (22.8-33.0) Discharge Medications Discharge Medications Albuterol Neb Soln (Albuterol Neb Soln) 2.5 Mg/3 Ml Vial.neb 2.5 MG INHALATION Q4H (Reported) Amlodipine (Amlodipine) 5 Mg Tablet 5 MG PO DAILY Prescribed by: NIVIA NIELSEN DO Atorvastatin Calcium (Atorvastatin Calcium) 20 Mg Tablet 20 MG PO HS Prescribed by: NIVIA NIELSEN DO Clopidogrel (Clopidogrel) 75 Mg Tablet 75 MG PO DAILY Prescribed by: NIVIA NIELSEN DO Fluticasone Propionate (Flovent HFA 220 mcg) 12 Gm Aer.w.adap 1 PUFF IH BID ( Reported) Glipizide (Glipizide) 5 Mg Tablet 5 MG PO BIDAC Prescribed by: NIVIA NIELSEN DO Hydrocortisone (Hydrocortisone) 2.5 % Cream.appl 30 GM RC BID (Reported) Insuln Asp Prt/Insulin Aspart (NovoLOG 70/30 U100 Insulin Flexpen) 100 Unit/Ml Unit 12 UNIT SUBQ BID Prescribed by: NIVIA NIELSEN DO Isosorbide MN ER (Isosorbide MN ER) 30 Mg Tab.er.24h 30 MG PO DAILY Prescribed by: NIVIA NIELSEN DO Ketoconazole (Ketoconazole) 120 Ml Shampoo 120 ML TP DAILY (Reported) Lisinopril (Lisinopril) 5 Mg Tablet 5 MG PO DAILY Prescribed by: NIVIA NIELSEN DO Metformin (Glucophage) 1,000 Mg Tablet 1,000 MG ORAL BID Prescribed by: NIVIA NIELSEN DO Metoprolol Tartrate (Metoprolol Tartrate) 75 Mg Tablet 75 MG PO BID Prescribed by: NIVIA NIELSEN DO Sertraline HCl (Sertraline) 20 Mg/1 Ml Oral.conc 25 MG PO DAILY (Reported) As needed Albuterol HFA (Proair HFA) 8.5 Gm Hfa.aer.ad 2 PUFFS INHALATION Q4H PRN PRN For Shortness of Breath (Reported) Nitroglycerin SL (Nitroglycerin SL) 0.4 Mg Tab.subl 0.4 MG SL Q5MIN PRN PRN For Chest Pain Prescribed by: NIVIA NIELSEN DO Followup Plan Disposition: Home Discharge Diet: Low fat, Low Sodium, Diabetic Discharge Activity: No restrictions Patient Instructions Take your medications as instructed to prevent you having a heart attack Continue using your oxygen Go to the Emergency room if you have trouble breathing, fever or chills and chest pain Follow-up Provider: Yumiko James MD Follow-up with PCP in: 1 week Time spent 20 minutes spend copies to: Yumiko James MD, Malik MD Oct 30, 2016 10:26
--- NOTE | 2016-10-30 11:57 | NUR ---
Discharge Pt discharged at this time, all belongings gathered and returned to pt. VSS, no complains of increased chest pressure/SOB. No new scripts given. IV D/Cd intact. Discharge packet printed and reviewed with pt. Pt taken from [facility] by [facility] in wheelchair to car.
== END 2016-10-30 12:24 | disposition home or self-care (01) | DRG 281 ==
LOC: SED 19:19 → MPC 10-28 02:14 → OBSVTOIN 10-28 02:14 → MPC 10-28 03:01
PROVIDERS: ADMIT Specialist; ATTEND Specialist
DX: I21.4 Non-ST elevation (NSTEMI) myocardial infarction (principal); J96.11 Chronic respiratory failure with hypoxia; Z79.82 Long term (current) use of aspirin; Z79.84 Long term (current) use of oral hypoglycemic drugs; Z79.4 Long term (current) use of insulin; Z79.52 Long term (current) use of systemic steroids; Z87.891 Personal history of nicotine dependence; Z91.19 Patient's noncompliance with other medical treatment and regimen; Z66 Do not resuscitate; J44.9 Chronic obstructive pulmonary disease, unspecified; E11.9 Type 2 diabetes mellitus without complications; Z59.0 Homelessness

== ENCOUNTER 2016-10-31 08:04 | Emergency (ER) | payer MEDICARE ==
[~2016-10-31] VITALS: Ht 170.2 cm; Wt 104.5 kg
[~2016-10-31 08:04] MED LIST changes: -ALBU18HF INH; -AMOX-366 PO; -ASPI81TA3 PO; -BECL8.7A6 INHALATION; -BENZ100C8 PO; +FLUT12AE10 IH; +HYDR30CR98 RC; -KETO120S TOP; +KETO120S3 TP; -PRE20 PO; +SERT20OR6 PO; -SERT50TA9 PO
[2016-10-31 08:14] VITALS: BP 156/86; PULSE 117; RESP 26; O2SAT 93
--- NOTE | 2016-10-31 09:04 | ED.REPORT ---
HPI-Chest Pain 40 and Over Date of Service Oct 31, 2016 ED Provider: Bk Richardson MD 66 year old male with a history of frequent ER visits, most recently discharge from hospitalization 2 days ago for a NSTEMI, who presents to the ER today due to 45 minutes of crushing chest pain just [employer]. He now has no pain but is mildly SOB. He left the hospital 2 days ago with a plan for stress test. However, the patient refused a stress test at the time. Nursing Notes Stated Complaint: SOB/ CHEST PAIN Chief Complaint: Chest Pain Nursing Notes Reviewed: Yes Allergies: Coded Allergies: vancomycin (Verified Allergy, Intermediate, Rash,Itching,, 10/27/16) Per Q: Pt should tolerates vancomycin as long as the rate is slow Scheduled Albuterol Neb Soln (Albuterol Neb Soln) 2.5 Mg/3 Ml Vial.neb 2.5 MG INHALATION Q4H Amlodipine (Amlodipine) 5 Mg Tablet 5 MG PO DAILY Atorvastatin Calcium (Atorvastatin Calcium) 20 Mg Tablet 20 MG PO HS Clopidogrel (Clopidogrel) 75 Mg Tablet 75 MG PO DAILY Fluticasone Propionate (Flovent HFA 220 mcg) 12 Gm Aer.w.adap 1 PUFF IH BID Glipizide (Glipizide) 5 Mg Tablet 5 MG PO BIDAC Hydrocortisone (Hydrocortisone) 2.5 % Cream.appl 30 GM RC BID Insuln Asp Prt/Insulin Aspart (NovoLOG 70/30 U100 Insulin Flexpen) 100 Unit/Ml Unit 12 UNIT SUBQ BID Isosorbide MN ER (Isosorbide MN ER) 30 Mg Tab.er.24h 30 MG PO DAILY Ketoconazole (Ketoconazole) 120 Ml Shampoo 120 ML TP DAILY Lisinopril (Lisinopril) 5 Mg Tablet 5 MG PO DAILY Metformin (Glucophage) 1,000 Mg Tablet 1,000 MG ORAL BID Metoprolol Tartrate (Metoprolol Tartrate) 75 Mg Tablet 75 MG PO BID Sertraline HCl (Sertraline) 20 Mg/1 Ml Oral.conc 25 MG PO DAILY Scheduled PRN Albuterol HFA (Proair HFA) 8.5 Gm Hfa.aer.ad 2 PUFFS INHALATION Q4H PRN PRN For Shortness of Breath Nitroglycerin SL (Nitroglycerin SL) 0.4 Mg Tab.subl 0.4 MG SL Q5MIN PRN PRN For Chest Pain General Time Seen by MD: 09:04 Chief Complaint Chest pain Hx Obtained From: Patient Arrived By: Wheelchair Sudden in Onset?: Yes Onset Occurred: 1 - 4 hours ago Symptom Duration: 31 - 45 minutes Location: : Substernal Quality: Painful Severity: Current: No pain currently Severity: Maximum: Moderate Associated with: Reports: Shortness of Breath, Denies: Fever Recent Healthcare: Recent doctor visit, Recent hospitalization Past Medical History Past Medical History Notes: PCP: Dr. James Frequent hospital admissions for COPD exacerbations Often refuses treatment and is abusive to staff. Often leaves AMA. 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, echo August 2013 with an decreased left ventricular ejection fraction History of nonadherence to medical treatment Chronic venous insufficiency Hx cellulitis Reports: COPD, Congestive heart failure, Diabetes mellitus, Hyperlipidemia, Hypertension Reports: Obesity Past Surgical History None Family History Reports: Diabetes mellitus Smoking History Former Smoker Social History Patient is currently living in his car Alcohol Use: Denies alcohol use Drug Use: Denies drug use Other Social History: Poor social support, Frequent ED visitor, Homeless 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 Physical Exam Initial Vital Signs Vital Signs (First) Date Time Temp Pulse Resp B/P Pulse Ox O2 Delivery O2 Flow Rate FiO2 10/31/16 08:14 36.4 117 26 156/86 93 Room Air 10/31/16 09:56 2.5 30 Initial VS: Reviewed, Vital signs abnormal Head / Eyes: Atraumatic, Normocephalic, PERRL ENT: Conjunctiva normal, No scleral icterus Neck: Full range of motion Extremities: Vascular intact, Neuro intact Skin: Warm, Dry Neurologic: Alert, Oriented General/Constitutional: Awake, Alert Respiratory / Chest: No rales Wheezing on R Cardiovascular: Heart rate NL, Regular rhythm, Heart sounds NL, No murmurs, Peripheral circulation NL Abdomen: Soft, Non-tender Interpretation & Diagnostics ECG Interpretation Time: 08:31 Interpreted by: ED physician Rhythm / Conduction: Tachycardia (rate 115) Re-Eval/Medical Decision Med Decision/Clinical Course Patient was discharged yesterday for his N STEMI. He was to have had a stress test and an echocardiogram both of which she refused because of the necessity of lying flat for the test. He says he was on his way to [place] to get coffee this morning he developed severe substernal chest pain that lasted about 45 minutes and resolved upon arrival here. His EKG currently is normal and I decided not to order troponin testing because it will probably be elevated and will not change the course of management since he is not a candidate for cardiac catheterization or more substantial intervention other than medication treatment. See Dr. Borges's consultation note from late August of this year. The patient is extremely reluctant to consistently take medications for management of his obvious severe coronary disease. I recommended that he follow -up with Dr. James at the clinic on Wednesday for medication management. He has no pain while using the emergency department but we did give him nebulized albuterol and Atrovent to help with his symptoms of breathlessness which are chronic for him. He is conversant and relatively pleasant today which is distinctly unusual for him. Time of Eval: 10:00 Re-Evaluation/Progress Note: Pt has improved after neb treatments. Discussed plan for discharge and follow up. All questions addressed. Counseled Regarding: Diagnosis, Need for follow-up, When/why to return to ED Discharge & Departure Primary Impression: Chest pain Chest pain type: unspecified Qualified Code: R07.9 - Chest pain, unspecified Additional Impression: Acute chronic obstructive pulmonary disease with respiratory failure Disposition: Home Discharge Condition All VS Reviewed: Yes Condition: No Change Patient Instructions: Chest Pain (ED) Additional Instructions: Follow-up with Dr. James on Wednesday. Referrals: Yumiko James MD (PCP) Scribe Attestation Portions of this note were transcribed by Deirdre Purcell. I, (Dr. Richardson) personally performed the history, physical exam and medical decision-making; I reviewed and confirmed the accuracy of the information in the transcribed note. Signed by: Deirdre Purcell. Raimundo, 10/31/2016, 1004 copies to: Yumiko James MD, Kirk H MD Oct 31, 2016 09:04 Deirdre Purcell 18, 2017 09:11
[2016-10-31] MEDS ORDERED: Albuterol 2.5 mg/3 mL Inhalation Solution NEB ONE (09:15)
[2016-10-31] MEDS ORDERED: Albuterol-Ipratropium 3 mL Inhalation Solution NEB ONE (09:15)
[2016-10-31 09:56] VITALS: PULSE 101; RESP 26; O2SAT 92
[2016-10-31 10:33] VITALS: BP 156/86; PULSE 101; RESP 26; O2SAT 92
== END 2016-10-31 09:55 | disposition home or self-care (01) ==
LOC: SED 08:04
DX: R07.9 Chest pain, unspecified (principal); J44.1 Chronic obstructive pulmonary disease with (acute) exacerbation; J96.90 Respiratory failure, unspecified, unspecified whether with hypoxia or hypercapnia; I25.10 Atherosclerotic heart disease of native coronary artery without angina pectoris; I50.42 Chronic combined systolic (congestive) and diastolic (congestive) heart failure; E11.9 Type 2 diabetes mellitus without complications; E78.5 Hyperlipidemia, unspecified; I10 Essential (primary) hypertension; E66.9 Obesity, unspecified; Z87.891 Personal history of nicotine dependence; Z79.4 Long term (current) use of insulin; Z79.84 Long term (current) use of oral hypoglycemic drugs; Z88.1 Allergy status to other antibiotic agents
CPT/HCPCS: 90791; 94664; 94799; 99285; J7620

== ENCOUNTER 2016-10-31 17:46 | Emergency (ER) | payer MEDICARE ==
[~2016-10-31] VITALS: Ht 170.2 cm; Wt 113.6 kg
[2016-10-31 17:49] VITALS: BP 166/95; PULSE 123; RESP 28; O2SAT 93
--- NOTE | 2016-10-31 18:14 | ED.REPORT ---
HPI-Chest Pain 40 and Over Date of Service Oct 31, 2016 ED Provider: Kate Cassidy MD Patient is a 66 year old homeless male with a history of noncompliance, COPD on O2, hypertension, congestive heart failure, and coronary artery disease with multiple prior NSTEMIs who presents to the ED complaining of substernal chest pain that began 2 hours prior to arrival. The patient reports the sensation that someone hit him on the chest. He states that his pain has improved since onset. Patient reports ongoing shortness of breath related to his COPD, but is unsure it it has worsened. He denies nausea, vomiting, or diaphoresis. Patient was seen in the ED earlier today, following an episode of resolved chest pain. Patient had a normal EKG during that visit but further work-up was not preformed due to his recent NSTEMI. Patient was admitted from 10/28-10/30 for an NSTEMI, but refused to undergo a cardiac stress test or echocardiogram. The patient is not a candidate for cardiac catheterization or more substantial intervention per cardiology. Nursing Notes Stated Complaint: CHEST PAIN Chief Complaint: Chest Pain Nursing Notes Reviewed: Yes Allergies: Coded Allergies: vancomycin (Verified Allergy, Intermediate, Rash,Itching,, 10/31/16) Per Q: Pt should tolerates vancomycin as long as the rate is slow Scheduled Albuterol Neb Soln (Albuterol Neb Soln) 2.5 Mg/3 Ml Vial.neb 2.5 MG INHALATION Q4H Amlodipine (Amlodipine) 5 Mg Tablet 5 MG PO DAILY Atorvastatin Calcium (Atorvastatin Calcium) 20 Mg Tablet 20 MG PO HS Clopidogrel (Clopidogrel) 75 Mg Tablet 75 MG PO DAILY Fluticasone Propionate (Flovent HFA 220 mcg) 12 Gm Aer.w.adap 1 PUFF IH BID Glipizide (Glipizide) 5 Mg Tablet 5 MG PO BIDAC Hydrocortisone (Hydrocortisone) 2.5 % Cream.appl 30 GM RC BID Insuln Asp Prt/Insulin Aspart (NovoLOG 70/30 U100 Insulin Flexpen) 100 Unit/Ml Unit 12 UNIT SUBQ BID Isosorbide MN ER (Isosorbide MN ER) 30 Mg Tab.er.24h 30 MG PO DAILY Ketoconazole (Ketoconazole) 120 Ml Shampoo 120 ML TP DAILY Lisinopril (Lisinopril) 5 Mg Tablet 5 MG PO DAILY Metformin (Glucophage) 1,000 Mg Tablet 1,000 MG ORAL BID Metoprolol Tartrate (Metoprolol Tartrate) 75 Mg Tablet 75 MG PO BID Sertraline HCl (Sertraline) 20 Mg/1 Ml Oral.conc 25 MG PO DAILY Scheduled PRN Albuterol HFA (Proair HFA) 8.5 Gm Hfa.aer.ad 2 PUFFS INHALATION Q4H PRN PRN For Shortness of Breath Nitroglycerin SL (Nitroglycerin SL) 0.4 Mg Tab.subl 0.4 MG SL Q5MIN PRN PRN For Chest Pain General Time Seen by MD: 18:13 Chief Complaint Chest pain Hx Obtained From: Patient Arrived By: Walk-in Sudden in Onset?: No Onset Occurred: 1 - 4 hours ago Symptom Duration: Since onset Location: : Substernal Quality: Painful Severity: Current: Moderate Severity: Maximum: Severe Recent Healthcare: Recent doctor visit, Recent hospitalization Similar Sx Previous: Yes Past Medical History Past Medical History Notes: PCP: Dr. James Frequent hospital admissions for COPD exacerbations Often refuses treatment and is abusive to staff. Often leaves AMA. 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, echo August 2013 with an decreased left ventricular ejection fraction History of nonadherence to medical treatment Chronic venous insufficiency Hx cellulitis Reports: COPD, Congestive heart failure, Diabetes mellitus, Hyperlipidemia, Hypertension Reports: Obesity Past Surgical History None Family History Reports: Diabetes mellitus Smoking History Former Smoker Social History Patient is currently living in his car Alcohol Use: Denies alcohol use Drug Use: Denies drug use Other Social History: Poor social support, Frequent ED visitor, Homeless 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 Physical Exam Initial Vital Signs Vital Signs (First) Date Time Temp Pulse Resp B/P Pulse Ox O2 Delivery O2 Flow Rate FiO2 10/31/16 17:49 36.1 123 28 166/95 93 Room Air 10/31/16 18:33 3 Initial VS: Reviewed Head / Eyes: Atraumatic, Normocephalic, PERRL ENT: Conjunctiva normal, No scleral icterus Neck: Supple, Full range of motion Skin: Warm, Dry, No cyanosis Neurologic: Alert, Oriented, Nonfocal Psychiatric: Mood/affect normal, Behavior normal, Normal thought content General/Constitutional: Awake, Alert Appearance / Presentation: Positive: Obese Respiratory / Chest: Breath sounds = bilat, No rales, No rhonchi Wheezing / Retractions: Positive: Wheezing expiratory coarse breath sounds throughout Cardiovascular: Regular rhythm, Heart sounds NL, No murmurs Heart Rate / Rhythm: Positive: Tachycardia Abdomen: Soft, Non-tender Interpretation & Diagnostics Lab Results Interpretation Result Diagram: 10/31/16185010/31/16 1851 Test 10/31/16 18:51 White Blood Count 6.8th/mm3 (3.8-10.1) Red Blood Count 4.82mil/mm3 (4.40-5.80) Hemoglobin 13.7g/dL (13.8-17.2) Hematocrit 40.6% (41.0-50.0) Mean Corpuscular Volume 84.2fL (81-100) Mean Corpuscular Hemoglobin 28.4pg (27.0-35.0) Mean Corpuscular Hemoglobin Concent 33.7% (32.0-37.0) Red Cell Distribution Width 15.0% (12.3-15.4) Platelet Count 228bil/L (150-400) Neutrophils (%) (Auto) 65.6% (40-74) Lymphocytes (%) (Auto) 14.9% (14-46) Monocytes (%) (Auto) 10.8% (4-12) Eosinophils (%) (Auto) 4.6% (0-5) Basophils (%) (Auto) 0.9% (0-3) Prothrombin Time 10.1sec (8.1-12.5) Prothromb Time International Ratio 0.95ratio Activated Partial Thromboplast Time 23.8sec (22.8-33.0) Sodium Level 136mEq/L (134-144) Potassium Level 4.0mEq/L (3.5-5.2) Chloride Level 99mEq/L (97-108) Carbon Dioxide Level 22mmol/L (18-29) Blood Urea Nitrogen 12mg/dL (8-27) Creatinine 0.65mg/dL (0.76-1.27) Estimat Glomerular Filtration Rate 130mL/min (>59) Glucose Level 245mg/dL (60-99) Calcium Level 9.0mg/dL (8.5-10.1) Magnesium Level 1.6mg/dL (1.6-2.6) Total Bilirubin 0.3mg/dL (0.0-1.2) Aspartate Amino Transf (AST/SGOT) 28U/L (0-50) Alanine Aminotransferase (ALT/SGPT) 26U/L (0-44) Alkaline Phosphatase 65U/L (25-160) Troponin T 0.059ug/L (0.0-0.011) Pro-B-Type Natriuretic Peptide 1271pg/mL (0-376) Total Protein 6.3g/dL (6.4-8.4) Albumin 4.0g/dL (3.4-5.0) ECG Interpretation ECG Interpretation: Sinus Tachycardia, rate [address] elevations diffuse flattened T waves in 1,2,3, AVR, AVL Time: 18:58 Interpreted by: ED physician X-Ray Chest Interpretation Chest Xray Interpretation: IMPRESSION: No acute cardiopulmonary disease process. Dictated by: Macarena Oliver MD, PhD on 10/31/2016 at 18:40 Approved by: Macarena Oliver MD, PhD on 10/31/2016 at 18:42 View: Portable Interpretation / Wet Read by: Interpret - Radiologist Re-Eval/Medical Decision Med Decision/Clinical Course 66-year-old male who is well known to this facility with multiple medical problems and recent non-ST elevation MO here with chest pain. Differential diagnosis includes but is not limited to non-ST elevation MO versus ST elevation MO versus pneumonia versus pleural effusion. Patient's chest x-ray consistent with COPD. His troponin is elevated compared to his last troponin. His EKG does not show any ST elevation MO. I am concerned for non-ST elevation MO. I offered the patient admission to the hospital, but he has chosen to leave AGAINST MEDICAL ADVICE. I have given him very strict return precautions and told him he was welcome to come back at any time. He is aware of the risks of leaving AGAINST MEDICAL ADVICE. He is alert and oriented 4, GCS 15, not clinically intoxicated, and decision making capacity at this time. Source of Hx: Old records Time of Eval: 19:48 Re-Evaluation/Progress Note: Rechecked the patient. Who was informed of the results of his chest x-ray, EKG, and labs. He was informed that his Troponin was elevated today and that he will need hospital admission. Patient was asked if he will be cooperative with care on admission and if he will be nice to staff. Patient states he will "do whatever the fuck he wants" but that he "can be nice". He agrees to have an echocardiogram and to undergo a stress test once admitted to the hospital. Time of Eval: 20:45 Re-Evaluation/Progress Note: Patient will not agree to answer comply with medical care. Patient will be signed out AGAINST MEDICAL ADVICE. He was advised that he can return to the ED at any time for medical care. Consultation #1: Referral / Consult Name: Latoya Ragland DO Consulted With: Hospitalist Call Returned at: 20:19 Note: Spoke with Dr. Ragland, hospitalist, about the patient's case. She is going to call Risk Management to see how the situation should be handled, as the patient is no longer to be admitted to this facility. Consultation #2: Referral / Consult Name: Latoya Ragland DO Call Returned at: 20:40 Note: Spoke to Dr. Ragland, who spoke with the patient. Patient was asked if he would be cooperative with care. When he was asked to get into a hospital gown and into the hospital bed he refused. The patient became angry and cursed at her. Patient was informed that if he cannot comply with care then he cannot be admitted to the hospital. Counseled Regarding: Diagnosis, Lab results, Need for admission Discharge & Departure Primary Impression: Elevated troponin Disposition: AGAINST MEDICAL ADVICE Discharge Condition All VS Reviewed: Yes Condition: Stable Additional Instructions: You have chosen to leave against medical advice. You require hospital admission because it appears that you have a problem with your heart. Feel free to return to the emergency department at any time. Your blood pressure was elevated in the Emergency Department today. You should follow-up with your primary care physician about your blood pressure, as you may need to have your blood pressure medication adjusted. Referrals: Yumiko James MD (PCP) Scribe Attestation Portions of this note were transcribed by Zuleika Mayberry. I, Dr. Cassidy personally performed the history, physical exam and medical decision-making; I reviewed and confirmed the accuracy of the information in the transcribed note. Signed by: Raimundo Peralta, 10/31/2016 [id number] copies to: Yumiko James MD, Rebecca A MD Oct 31, 2016 18:14 Zuleika Mayberry Oct 31, 2016 18:27
[2016-10-31 18:33] VITALS: BP 126/72; PULSE 116; RESP 26; O2SAT 94
--- NOTE | 2016-10-31 18:43 | DRSVH ---
PROCEDURE: X-RAY CHEST ONE VIEW, PORTABLE ([id number]) INDICATIONS: chest pain TECHNIQUE: One view of the chest was acquired. COMPARISON: [facility], CR, XR CHEST 1VW (PORTABLE), 10/18/2016, 15:32. [facility], CR, XR CHEST 1VW (PORTABLE), 10/24/2016, 17:18. [facility], CR, XR CHEST 1VW (POR TABLE), 10/28/2016, 0:15. FINDINGS: Surgical changes and devices: None. Lungs and pleura: No pleural effusions or pneumothorax. Lungs are clear. Mediastinum: Mediastinal contours appear normal. Heart size is normal. Bones and chest wall: No suspicious bony lesions. Overlying soft tissues appear unremarkable. IMPRESSION: No acute cardiopulmonary disease process. Dictated by: Macarena Oliver MD, PhD on 10/31/2016 at 18:40 Approved by: Macarena Oliver MD, PhD on 10/31/2016 at 18:42
[2016-10-31 19:02] LABS: BASOPHILS % (AUTO) 0.9 % (0-3); EOSINOPHILS % (AUTO) 4.6 % (0-5); MONOCYTES % (AUTO) 10.8 % (4-12); Mean Corpuscular Hemoglobin 28.4 pg (27.0-35.0); Mean Corpuscular Volume 84.2 fL (81-100); NEUTROPHILS % (AUTO) 65.6 % (40-74); Platelet Count 228 bil/L (150-400)
[2016-10-31 19:22] LABS: INR 0.95 ratio
[2016-10-31 19:39] LABS: Magnesium 1.6 mg/dL (1.6-2.6)
[2016-10-31 19:40] LABS: TROPONIN T 0.059 ug/L (0.0-0.011)
== END 2016-10-31 20:55 | disposition left against medical advice (07) ==
LOC: SED 17:46
DX: R79.89 Other specified abnormal findings of blood chemistry (principal); R07.2 Precordial pain; J44.9 Chronic obstructive pulmonary disease, unspecified; I10 Essential (primary) hypertension; I50.9 Heart failure, unspecified; I25.10 Atherosclerotic heart disease of native coronary artery without angina pectoris; E11.9 Type 2 diabetes mellitus without complications; E78.5 Hyperlipidemia, unspecified; Z59.0 Homelessness; Z87.891 Personal history of nicotine dependence; Z91.14 Patient's other noncompliance with medication regimen; Z88.1 Allergy status to other antibiotic agents; Z79.4 Long term (current) use of insulin; Z79.84 Long term (current) use of oral hypoglycemic drugs

== ENCOUNTER 2016-11-03 15:29 | Emergency (ER) | payer MEDICARE ==
[~2016-11-03] VITALS: Ht 170.2 cm; Wt 250.0 kg
[2016-11-03 15:46] VITALS: BP 129/81; PULSE 124; RESP 24; O2SAT 95
[2016-11-03 15:47] VITALS: BP 129/81; PULSE 124; RESP 12; O2SAT 95
--- NOTE | 2016-11-03 16:57 | DRSVH ---
PROCEDURE: X-RAY CHEST ONE VIEW, PORTABLE ([id number]) INDICATIONS: chest pain TECHNIQUE: One view of the chest was acquired. COMPARISON: [facility], CR, XR CHEST 1VW (PORTABLE), 10/31/2016, 18:17. [facility] (PORTABLE), 10/28/2016, 0:15. [facility], CR, XR CHEST 1VW (PORT ABLE), 10/24/2016, 17:18. FINDINGS: Surgical changes and devices: None. Lungs and pleura: No pleural effusions or pneumothorax. Lungs are clear. Mediastinum: Mediastinal contours appear normal. Heart size is normal. Bones and chest wall: No suspicious bony lesions. Overlying soft tissues appear unremarkable. IMPRESSION: No acute process. Dictated by: Fidel Moran M.D. on 11/03/2016 at 16:56 Approved by: Fidel Moran M.D. on 11/03/2016 at 16:56
--- NOTE | 2016-11-03 17:28 | ED.REPORT ---
HPI-General Illness Date of Service Nov 03, 2016 ED Provider: Christiano Stern MD A 66 year old homeless male with a history of noncompliance, COPD on home O2, hypertension, congestive heart failure, and coronary artery disease with multiple prior NSTEMIs and frequent ED visits presents to the ED complaining of substernal chest pain that began 2 hours prior to arrival. He describes the pain as a "sharp ache". The episode of pain lasted one hour. He reports that his breathing is at baseline and has improved from earlier. He denies any fever or chills. Patient has been seen in the ED 6 times in the past month for similar symptoms. Nursing Notes Stated Complaint: SOB Chief Complaint: Chest Pain Nursing Notes Reviewed: Yes Allergies: Coded Allergies: vancomycin (Verified Allergy, Intermediate, Rash,Itching,, 10/31/16) Per Q: Pt should tolerates vancomycin as long as the rate is slow Scheduled Albuterol Neb Soln (Albuterol Neb Soln) 2.5 Mg/3 Ml Vial.neb 2.5 MG INHALATION Q4H Amlodipine (Amlodipine) 5 Mg Tablet 5 MG PO DAILY Atorvastatin Calcium (Atorvastatin Calcium) 20 Mg Tablet 20 MG PO HS Clopidogrel (Clopidogrel) 75 Mg Tablet 75 MG PO DAILY Fluticasone Propionate (Flovent HFA 220 mcg) 12 Gm Aer.w.adap 1 PUFF IH BID Glipizide (Glipizide) 5 Mg Tablet 5 MG PO BIDAC Hydrocortisone (Hydrocortisone) 2.5 % Cream.appl 30 GM RC BID Insuln Asp Prt/Insulin Aspart (NovoLOG 70/30 U100 Insulin Flexpen) 100 Unit/Ml Unit 12 UNIT SUBQ BID Isosorbide MN ER (Isosorbide MN ER) 30 Mg Tab.er.24h 30 MG PO DAILY Ketoconazole (Ketoconazole) 120 Ml Shampoo 120 ML TP DAILY Lisinopril (Lisinopril) 5 Mg Tablet 5 MG PO DAILY Metformin (Glucophage) 1,000 Mg Tablet 1,000 MG ORAL BID Metoprolol Tartrate (Metoprolol Tartrate) 75 Mg Tablet 75 MG PO BID Sertraline HCl (Sertraline) 20 Mg/1 Ml Oral.conc 25 MG PO DAILY Scheduled PRN Albuterol HFA (Proair HFA) 8.5 Gm Hfa.aer.ad 2 PUFFS INHALATION Q4H PRN PRN For Shortness of Breath Nitroglycerin SL (Nitroglycerin SL) 0.4 Mg Tab.subl 0.4 MG SL Q5MIN PRN PRN For Chest Pain General Time Seen by MD: 17:26 Chief Complaint Chest pain Hx Obtained From: Patient Arrived By: Walk-in Sudden in Onset?: No Onset Occurred: 1 - 4 hours ago Symptom Duration: 1 - 4 hours Location: : Chest Quality: Aching, Sharp Radiation: : Does not radiate Severity: Current: No pain currently Severity: Maximum: Mild Associated with: Denies: Fever, Shortness of breath Pertinent Negative: Pt denies other symptoms Recent Healthcare: Recent doctor visit, Recent hospitalization Past Medical History Past Medical History Notes: PCP: Dr. James Frequent hospital admissions for COPD exacerbations Often refuses treatment and is abusive to staff. Often leaves AMA. 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" Multiple visits of COPD with exacerbation (patient on chronic O2 2-3 L) History of paroxysmal atrial tachycardia Chronic CHF with systolic and diastolic dysfunction, echo August 2013 with an decreased left ventricular ejection fraction History of nonadherence to medical treatment Chronic venous insufficiency Hx cellulitis Reports: COPD, Congestive heart failure, Diabetes mellitus, Hyperlipidemia, Hypertension Reports: Obesity Past Surgical History None Family History Reports: Diabetes mellitus Smoking History Former Smoker Social History Patient is currently living in his car Alcohol Use: Denies alcohol use Drug Use: Denies drug use Other Social History: Poor social support, Frequent ED visitor, Homeless 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 Ambulatory Status Wheelchair Review of Systems Full Review of Systems Constitutional: Denies: Chills, Fever Physical Exam Vital Signs Vital Signs Date Time Temp Pulse Resp B/P Pulse Ox O2 Delivery O2 Flow Rate FiO2 11/03/16 15:47 35.7 124 12 129/81 95 Nasal Cannula 2 11/03/16 15:46 35.6 124 24 129/81 95 Nasal Cannula Initial VS: Reviewed Neck: Supple, Non-tender, Full range of motion Extremities: Vascular intact, Neuro intact, No swelling, No tenderness Skin: Warm, Dry, No cyanosis Neurologic: Alert, Oriented, Nonfocal General/Constitutional: Awake, Alert Head / Eyes: Atraumatic, Normocephalic, PERRL Respiratory / Chest: Atraumatic, No crepitus REPIRATORY: Prolonged expiratory phase Crackles in bilateral bases Cardiovascular: Regular rhythm, Heart sounds NL, Peripheral circulation NL, Pulses = bilaterally (Radial pulses good ) Heart Rate / Rhythm: Positive: Tachycardia Lower Ext Edema: Positive: Bilateral 2+ CARDIO: No lateralizing edema in calves or swelling Abdomen: Atraumatic, Soft, Non-tender Interpretation & Diagnostics Lab Results Interpretation Result Diagram: 11/03/16 1725 11/03/16 1725 Test 11/03/16 17:25 White Blood Count 7.2th/mm3 (3.8-10.1) Red Blood Count 4.82mil/mm3 (4.40-5.80) Hemoglobin 13.7g/dL (13.8-17.2) Hematocrit 41.9% (41.0-50.0) Mean Corpuscular Volume 86.9fL (81-100) Mean Corpuscular Hemoglobin 28.4pg (27.0-35.0) Mean Corpuscular Hemoglobin Concent 32.7% (32.0-37.0) Red Cell Distribution Width 15.5% (12.3-15.4) Platelet Count 224bil/L (150-400) Neutrophils (%) (Auto) 67.4% (40-74) Lymphocytes (%) (Auto) 17.0% (14-46) Monocytes (%) (Auto) 9.1% (4-12) Eosinophils (%) (Auto) 4.6% (0-5) Basophils (%) (Auto) 0.8% (0-3) Sodium Level 139mEq/L (134-144) Potassium Level 4.7mEq/L (3.5-5.2) Chloride Level 101mEq/L (97-108) Carbon Dioxide Level 22mmol/L (18-29) Blood Urea Nitrogen 25mg/dL (8-27) Creatinine 1.02mg/dL (0.76-1.27) Estimat Glomerular Filtration Rate 77mL/min (>59) Glucose Level 385mg/dL (60-99) Calcium Level 8.9mg/dL (8.5-10.1) Magnesium Level 1.8mg/dL (1.6-2.6) Total Bilirubin 0.3mg/dL (0.0-1.2) Aspartate Amino Transf (AST/SGOT) 15U/L (0-50) Alanine Aminotransferase (ALT/SGPT) 28U/L (0-44) Alkaline Phosphatase 67U/L (25-160) Troponin T 0.041ug/L (0.0-0.011) Total Protein 6.4g/dL (6.4-8.4) Albumin 3.8g/dL (3.4-5.0) Hold Ramires Top Tube Received (Received) ECG Interpretation ECG Interpretation: Sinus tachycardia Rate 116 bpm Normal axis No acute ST changes No acute T wave abnormalities Prior 10/31/2016 Unchanged and remains tachy Time: 17:33 Interpreted by: ED physician X-Ray Chest Interpretation Chest Xray Interpretation: IMPRESSION: No acute process. Dictated by: Fidel Moran M.D. on 11/03/2016 at 16:56 Interpretation / Wet Read by: Interpret - Radiologist Re-Eval/Medical Decision Med Decision/Clinical Course Vincent High is a 66-year-old male with history of chronic lung disease as well as coronary artery disease well known to this emergency department who presents the emergency department complaining of an episode of chest pain occurring earlier today but is now completely resolved. I am called to the patient's bedside by RN as patient is stating that he feels better and would now like to leave the emergency department. He has not received any treatment here in the emergency room. EKG was obtained and reviewed by myself as documented above. I obtained history from the patient and performed a physical examination. According to the patient that we would like to wait for laboratory studies to result before discharge. The patient adamantly stated that he refused to wait in the emergency department for laboratory studies. I asked this concern to the patient that should his laboratory studies results with concerning findings that we might not be able to contact him. The patient states that this is not concerning to him and we can call him on his phone. He adamantly refuses to remain in the emergency department for completion of his evaluation. Demonstrates decisional capacity and verbalizes understanding of the risks associated with elopement from the emergency department. AMA paperwork was completed and signed by patient. Subsequent to the patient's leaving AGAINST MEDICAL ADVICE laboratory studies resulted. Troponin was positive at 0.0410 down from prior of 0.059 on October 31. CMP was notable for glucose of 385 and CBC was unremarkable. Chest x-ray demonstrated no acute cardiopulmonary process. Multiple attempts were made to contact the patient persuaded him to return to the emergency department for further workup however we are unsuccessful in doing so. Time of Eval: 17:33 Patient Status: Condition improved Re-Evaluation/Progress Note: Patient is rechecked and is requesting to leave AMA without his lab results. Time of Eval: 18:15 Re-Evaluation/Progress Note: Troponin is positive (0.041) Patient is contacted by nurse and advised to return to the ED with concern for CO Counseled Regarding: Diagnosis, Need for follow-up, When/why to return to ED Discharge & Departure Primary Impression: Chest pain Chest pain type: unspecified Qualified Code: R07.9 - Chest pain, unspecified Additional Impressions: Elevated troponin Hyperglycemia COPD (chronic obstructive pulmonary disease) COPD type: unspecified COPD Qualified Code: J44.9 - Chronic obstructive pulmonary disease, unspecified Noncompliance by refusing intervention or support Disposition: AGAINST MEDICAL ADVICE Discharge Condition All VS Reviewed: Yes Condition: Stable Patient Instructions: Chest Pain (ED) Additional Instructions: Thank you for seeking care at the emergency room. Our primary goal today in the ED was to evaluate you for any life-threatening conditions. We were unable to complete your evaluation because you refused to stay in the emergency department and wait for your lab tests. Able to rule out serious life-threatening causes of her chest pain today. Change your mind and wish to be further evaluated please come back to the emergency room. You should return to the ED immediately if you develop any recurrent/changing symptoms, fevers, vomiting, cough, shortness of breath, chest pain, lightheadedness, weakness or any other concerning signs or symptoms. Thank you for letting us partake in your care today. Referrals: Yumiko James MD (PCP) Scribe Attestation Portions of this note were transcribed by John Aponte. I, Dr. Stern personally performed the history, physical exam and medical decision-making; I reviewed and confirmed the accuracy of the information in the transcribed note. Signed by: Raimundo Santizo, 11/03/16 1810. copies to: Yumiko James MD, Beck O MD Nov 03, 2016 17:28 JOHN APONTE Nov 03, 2016 17:36
[2016-11-03 17:36] LABS: BASOPHILS % (AUTO) 0.8 % (0-3); EOSINOPHILS % (AUTO) 4.6 % (0-5); MONOCYTES % (AUTO) 9.1 % (4-12); Mean Corpuscular Hemoglobin 28.4 pg (27.0-35.0); Mean Corpuscular Volume 86.9 fL (81-100); NEUTROPHILS % (AUTO) 67.4 % (40-74); Platelet Count 224 bil/L (150-400)
[2016-11-03 18:12] LABS: TROPONIN T 0.041 ug/L (0.0-0.011)
[2016-11-03 18:20] LABS: Magnesium 1.8 mg/dL (1.6-2.6)
[2016-11-04] MEDS ORDERED: NITR0.4T6 SL (08:20)
[2016-11-04] MEDS ORDERED: OXYC1TAB24 PO (08:20)
== END 2016-11-03 17:49 | disposition left against medical advice (07) ==
LOC: SED 15:29
DX: R07.2 Precordial pain (principal); J44.9 Chronic obstructive pulmonary disease, unspecified; E11.65 Type 2 diabetes mellitus with hyperglycemia; R77.8 Other specified abnormalities of plasma proteins; I11.0 Hypertensive heart disease with heart failure; E11.59 Type 2 diabetes mellitus with other circulatory complications; I50.9 Heart failure, unspecified; I25.10 Atherosclerotic heart disease of native coronary artery without angina pectoris; I25.2 Old myocardial infarction; E78.5 Hyperlipidemia, unspecified; Z91.19 Patient's noncompliance with other medical treatment and regimen; Z59.0 Homelessness; Z79.84 Long term (current) use of oral hypoglycemic drugs; Z79.4 Long term (current) use of insulin; Z87.891 Personal history of nicotine dependence; Z88.1 Allergy status to other antibiotic agents

== ENCOUNTER 2016-11-04 06:01 | Emergency (ER) | payer MEDICARE ==
[2016-11-04 06:04] VITALS: BP 145/91; PULSE 115; RESP 19; O2SAT 96
--- NOTE | 2016-11-04 06:06 | ED.REPORT ---
HPI-Dyspnea / Wheezing Date of Service Nov 04, 2016 ED Provider: A 66 year old homeless male with a history of noncompliance, COPD on home O2, hypertension, congestive heart failure, and coronary artery disease with multiple prior NSTEMIs and frequent ED visits presents to the ED complaining of chest pain that began 2 hours ago. His pain is located to his mid lower chest. He also complains of diaphoresis. His breathing seems to be at baseline today. He has had over 25 ED visits this year. His last visit was yesterday when he was seen for chest pain. His workup yesterday included: labs, EKG, and chest x- ray. The patient decided to leave before his labs were completed. Multiple attempts were made to contact him to persuade him to return but this was unsuccessful. He denies fever, chills, nausea, vomiting or diarrhea. Nursing Notes Stated Complaint: CHEST PAIN/SHORTNESS OF BREATH Chief Complaint: Respiratory Distress Nursing Notes Reviewed: Yes Allergies: Coded Allergies: vancomycin (Verified Allergy, Intermediate, Rash,Itching,, 11/04/16) Per Q: Pt should tolerates vancomycin as long as the rate is slow Scheduled Albuterol Neb Soln (Albuterol Neb Soln) 2.5 Mg/3 Ml Vial.neb 2.5 MG INHALATION Q4H Amlodipine (Amlodipine) 5 Mg Tablet 5 MG PO DAILY Atorvastatin Calcium (Atorvastatin Calcium) 20 Mg Tablet 20 MG PO HS Clopidogrel (Clopidogrel) 75 Mg Tablet 75 MG PO DAILY Fluticasone Propionate (Flovent HFA 220 mcg) 12 Gm Aer.w.adap 1 PUFF IH BID Glipizide (Glipizide) 5 Mg Tablet 5 MG PO BIDAC Hydrocortisone (Hydrocortisone) 2.5 % Cream.appl 30 GM RC BID Insuln Asp Prt/Insulin Aspart (NovoLOG 70/30 U100 Insulin Flexpen) 100 Unit/Ml Unit 12 UNIT SUBQ BID Isosorbide MN ER (Isosorbide MN ER) 30 Mg Tab.er.24h 30 MG PO DAILY Ketoconazole (Ketoconazole) 120 Ml Shampoo 120 ML TP DAILY Lisinopril (Lisinopril) 5 Mg Tablet 5 MG PO DAILY Metformin (Glucophage) 1,000 Mg Tablet 1,000 MG ORAL BID Metoprolol Tartrate (Metoprolol Tartrate) 75 Mg Tablet 75 MG PO BID Sertraline HCl (Sertraline) 20 Mg/1 Ml Oral.conc 25 MG PO DAILY Scheduled PRN Albuterol HFA (Proair HFA) 8.5 Gm Hfa.aer.ad 2 PUFFS INHALATION Q4H PRN PRN For Shortness of Breath Nitroglycerin SL (Nitroglycerin SL) 0.4 Mg Tab.subl 0.4 MG SL Q5MIN PRN PRN For Chest Pain General Time Seen by MD: 06:05 Chief Complaint Chest pain Hx Obtained From: Patient Arrived By: Wheelchair Sudden in Onset?: Yes Onset Occurred: 1 - 4 hours ago Symptom Duration: Since onset Location: : Substernal (lower) Quality: Painful Severity: Current: Moderate Severity: Maximum: Severe Recent Healthcare: Recent doctor visit, Recent hospitalization Similar Sx Previous: Yes Past Medical History Past Medical History Notes: PCP: Dr. James Frequent hospital admissions for COPD exacerbations Often refuses treatment and is abusive to staff. Often leaves AMA. 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" Multiple visits of COPD with exacerbation (patient on chronic O2 2-3 L) History of paroxysmal atrial tachycardia Chronic CHF with systolic and diastolic dysfunction, echo August 2013 with an decreased left ventricular ejection fraction History of nonadherence to medical treatment Chronic venous insufficiency Hx cellulitis Reports: COPD, Congestive heart failure, Diabetes mellitus, Hyperlipidemia, Hypertension Reports: Obesity Past Surgical History None Family History Reports: Diabetes mellitus Smoking History Former Smoker Social History Patient is currently living in his car Alcohol Use: Denies alcohol use Drug Use: Denies drug use Other Social History: Poor social support, Frequent ED visitor, Homeless 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 GI: Denies: Diarrhea, Nausea, Vomiting Physical Exam Initial Vital Signs Vital Signs (First) Date Time Temp Pulse Resp B/P Pulse Ox O2 Delivery O2 Flow Rate FiO2 11/04/16 06:04 37.0 115 19 145/91 96 Room Air Initial VS: Reviewed Head / Eyes: Atraumatic, Normocephalic, PERRL ENT: Mucous membranes moist, Conjunctiva normal, No scleral icterus Abdomen / GI: Soft, Non-tender, No guarding, No rebound, No distention Extremities: Vascular intact, Neuro intact, No swelling, No tenderness Skin: Warm, Dry, No cyanosis Neurologic: Alert, Oriented, Nonfocal Psychiatric: Mood/affect normal, Behavior normal, Normal thought content General/Constitutional: Awake, Alert, Cooperative Neck: Atraumatic, Supple, No meningismus, Full range of motion, No swelling, Non-tender, No masses Respiratory / Chest: Breath sounds NL, Breath sounds = bilat, No respiratory distress, No rales, No rhonchi, No wheezing, No chest tenderness, No chest wall deformity Cardiovascular: Heart rate NL, Regular rhythm, Heart sounds NL, No gallop, No murmurs, No rubs, Peripheral circulation NL Interpretation & Diagnostics ECG Interpretation ECG Interpretation: Sinus tachycardia with a rate of 114 Time: 06:18 Interpreted by: ED physician Re-Eval/Medical Decision Med Decision/Clinical Course The patient expressed some remorse about having left without a stress test but reiterates his reluctance to participate in such testing when the procedure is described to him and says that he could not comply with the position requirements for the test. Clem tells me today as he has on previous occasions he wishes I will just kill him. I told him of course this was not an option but I did offer him hospice consultation which he did express an interest in. I have arranged for hospice consultation and made a referral. Source of Hx: Old records Re-Evaluation/Progress : Time of Eval: 07:52 Re-Evaluation/Progress Note: The patient is feeling better, his chest pain has improved. Discussed plan for discharge. All questions were addressed. Counseled Regarding: Diagnosis, Lab results, Need for follow-up, When/why to return to ED Discharge & Departure Impression: Primary Impression: Chest pain Chest pain type: unspecified Qualified Code: R07.9 - Chest pain, unspecified Disposition: Home Discharge Condition All VS Reviewed: Yes Condition: Improved Patient Instructions: Chest Pain (ED) Additional Instructions: Thank you for entrusting us with your care today. I have written you a prescription for Percocet and nitroglycerin for your chest pain. [facility] will be contacting you today or tomorrow to arrange an appointment. We are always here if you are feeling poorly. Please return to the emergency department if you develop recurrent severe chest pain. increased work of breathing, or any other new or concerning symptoms. Use the nitroglycerin by placing one tablet under tongue every 5 minutes until the pain goes away (up to 3 tablets). If that does not make it go away then try Percocet 1 or 2 pills and wait another 45 minutes. If the pain still is with you, return to the emergency department if he would like further treatment Referrals: Yumiko James MD (PCP) Scribe Attestation Portions of this note were transcribed by Silvia Barrios. I, Dr. Richardson personally performed the history, physical exam and medical decision-making; I reviewed and confirmed the accuracy of the information in the transcribed note. Signed by: Raimundo Vargas, 11/04/2016 at 0815. copies to: Yumiko James MD, Kirk H MD Nov 04, 2016 06:06 Silvia Barrios Nov 04, 2016 06:15
[2016-11-04] MEDS ORDERED: oxyCODONE-Acetamin 5-325 mg Tablet PO ONE (06:10)
[2016-11-04] MEDS ORDERED: Albuterol 2.5 mg/3 mL Inhalation Solution NEB ONE (06:10)
[2016-11-04] MEDS ORDERED: Nitroglycerin 2% 1 Gm Ointment TOPICAL ONE (06:10)
[2016-11-04 06:18] VITALS: PULSE 114; RESP 21; O2SAT 92
[2016-11-04 07:18] VITALS: BP 95/73; PULSE 94; RESP 21; O2SAT 94
[2016-11-04] MEDS ORDERED: OXYC1TAB24 PO (08:20)
[2016-11-04] MEDS ORDERED: NITR0.4T6 SL (08:20)
[2016-11-04 08:35] VITALS: BP 99/69; PULSE 86; RESP 22; O2SAT 93
== END 2016-11-04 08:36 | disposition home or self-care (01) ==
LOC: SED 06:01
DX: R07.9 Chest pain, unspecified (principal); J44.9 Chronic obstructive pulmonary disease, unspecified; I10 Essential (primary) hypertension; I50.9 Heart failure, unspecified; I25.10 Atherosclerotic heart disease of native coronary artery without angina pectoris; I25.2 Old myocardial infarction; E11.9 Type 2 diabetes mellitus without complications; E78.5 Hyperlipidemia, unspecified; Z99.81 Dependence on supplemental oxygen; Z79.4 Long term (current) use of insulin; Z79.84 Long term (current) use of oral hypoglycemic drugs; Z87.891 Personal history of nicotine dependence; Z59.0 Homelessness; Z88.1 Allergy status to other antibiotic agents

== ENCOUNTER 2016-11-06 01:23 | Inpatient (IN) | payer MEDICARE ==
[2016-11-06] VITALS (25 sets, daily range): BP systolic 77–143; BP diastolic 50–110; PULSE 81–116; RESP 16–30; O2SAT 87–99
[~2016-11-06] VITALS: Ht 172.7 cm; Wt 92.9 kg
[~2016-11-06 01:23] MED LIST changes: +Glycopyrrolate 0.2 MG/ML 1mL Inj ONE; +Ketamine 10 mg/mL 20 mL Inj ONE; +Neostigmine 1 mg/mL 10 mL Inj ONE; +OXYC1TAB24 PO; +Propofol 10,000 mCg/mL 20 mL Inj ONE; +Rocuronium 10 mg/mL 5 mL Inj ONE
[2016-11-06] MEDS ORDERED: Albuterol 2.5 mg/3 mL Inhalation Solution NEB ONE (01:55)
--- NOTE | 2016-11-06 02:07 | ED.REPORT ---
HPI-Dyspnea / Wheezing Date of Service Nov 06, 2016 ED Provider: Aldo Chicas MD Patient is a 66 year old homeless male with a history of noncompliance, COPD on home O2, hypertension, congestive heart failure, coronary artery disease with multiple prior NSTEMIs and frequent ED visits who presents complaining of shortness of breath and left sided chest pain that began 45 minutes prior to arrival. Patient states that his pain radiates down his left arm. He requests a breathing treatment on arrival to the ED and states that his symptoms today are the same as every other time he is seen in the ED. Patient has a history of leaving AMA, being abusive towards staff, and is noncompliant with medical care. Patient was admitted from 10/28-10/30 for an NSTEMI, but refused to undergo a cardiac stress test or echocardiogram. The patient is not a candidate for diagnostic cardiac catheterization or more substantial intervention per cardiology notes dated September 04 and 2016. Nursing Notes Stated Complaint: CHEST PAIN Chief Complaint: Chest Pain Nursing Notes Reviewed: Yes Allergies: Coded Allergies: vancomycin (Verified Allergy, Intermediate, Rash,Itching,, 11/06/16) Per Q: Pt should tolerates vancomycin as long as the rate is slow Scheduled Albuterol Neb Soln (Albuterol Neb Soln) 2.5 Mg/3 Ml Vial.neb 2.5 MG INHALATION Q4H Amlodipine (Amlodipine) 5 Mg Tablet 5 MG PO DAILY Atorvastatin Calcium (Atorvastatin Calcium) 20 Mg Tablet 20 MG PO HS Clopidogrel (Clopidogrel) 75 Mg Tablet 75 MG PO DAILY Fluticasone Propionate (Flovent HFA 220 mcg) 12 Gm Aer.w.adap 1 PUFF IH BID Glipizide (Glipizide) 5 Mg Tablet 5 MG PO BIDAC Hydrocortisone (Hydrocortisone) 2.5 % Cream.appl 30 GM RC BID Insuln Asp Prt/Insulin Aspart (NovoLOG 70/30 U100 Insulin Flexpen) 100 Unit/Ml Unit 12 UNIT SUBQ BID Isosorbide MN ER (Isosorbide MN ER) 30 Mg Tab.er.24h 30 MG PO DAILY Ketoconazole (Ketoconazole) 120 Ml Shampoo 120 ML TP DAILY Lisinopril (Lisinopril) 5 Mg Tablet 5 MG PO DAILY Metformin (Glucophage) 1,000 Mg Tablet 1,000 MG ORAL BID Metoprolol Tartrate (Metoprolol Tartrate) 75 Mg Tablet 75 MG PO BID Sertraline HCl (Sertraline) 20 Mg/1 Ml Oral.conc 25 MG PO DAILY Scheduled PRN Albuterol HFA (Proair HFA) 8.5 Gm Hfa.aer.ad 2 PUFFS INHALATION Q4H PRN PRN For Shortness of Breath Nitroglycerin SL (Nitroglycerin SL) 0.4 Mg Tab.subl 0.4 MG SL Q5MIN PRN PRN For Chest Pain oxyCODONE-Acetaminophen 5-325 mg (oxyCODONE-Acetaminophen 5-325 mg) 1 Each Tablet 1-2 TAB PO Q6H PRN PRN For Pain General Time Seen by MD: 01:53 Chief Complaint Chest pain, Shortness of breath Hx Obtained From: Patient Arrived By: Wheelchair Sudden in Onset?: No Onset Occurred: 31 - 45 minutes ago Symptom Duration: Since onset Location: : Chest left Quality: Painful Severity: Current: Moderate Severity: Maximum: Moderate Recent Healthcare: Recent doctor visit, Recent hospitalization Similar Sx Previous: Yes Past Medical History Past Medical History Notes: PCP: Dr. James Frequent hospital admissions for COPD exacerbations Often refuses treatment and is abusive to staff. Often leaves AMA. 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" - Multiple visits of COPD with exacerbation (patient on chronic O2 2-3 L) - History of paroxysmal atrial tachycardia - Chronic CHF with systolic and diastolic dysfunction, echo August 2013 with an decreased left ventricular ejection fraction - Chronic venous insufficiency - Cellulitis Reports: COPD, Congestive heart failure, Diabetes mellitus, Hyperlipidemia, Hypertension Reports: Obesity Past Surgical History None Family History Reports: Diabetes mellitus Smoking History Former Smoker Social History Patient is currently living in his car Alcohol Use: Denies alcohol use Drug Use: Denies drug use Other Social History: Poor social support, Frequent ED visitor, Homeless 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 Physical Exam Initial Vital Signs Vital Signs (First) Date Time Temp Pulse Resp B/P Pulse Ox O2 Delivery O2 Flow Rate FiO2 11/06/16 01:25 36.0 114 24 143/89 90 Room Air 11/06/16 03:51 6 Initial VS: Reviewed, Vital signs abnormal Head / Eyes: Atraumatic, Normocephalic, PERRL ENT: Conjunctiva normal, No scleral icterus Skin: Warm, Dry, No cyanosis Neurologic: Alert, Oriented, Nonfocal Psychiatric: Mood/affect normal, Behavior normal General/Constitutional: Awake, Alert Appearance / Presentation: Positive: Hygiene poor, Obese Refuses to get out of his clothing or sit in hospital bed, stays seated in his wheelchair. Unkempt. Exam limited by the patient's unwillingness to participate in examination. Neck: Supple Respiratory / Chest: No rales, No rhonchi Diminished Breath Sounds: Positive: Decreased bilateral (distant) Wheezing / Retractions: Positive: Wheezing severe (tight) tripoding and using accessory muscles of respiration, appears hyperexpanded Cardiovascular: Regular rhythm Heart Rate / Rhythm: Positive: Tachycardia ENT: Airway patent Interpretation & Diagnostics Lab Results Interpretation Result Diagram: 11/06/16 0313 11/06/16 0313 Test 11/06/16 03:13 Prothrombin Time 10.2sec (8.1-12.5) Prothromb Time International Ratio 0.95ratio D-Dimer 0.7mg/L (<0.50) Hemoglobin A1c 10.3% (4.8-5.6) Lactic Acid Level 1.4mmol/L (0.4-2.0) Pro-B-Type Natriuretic Peptide 1954pg/mL (0-376) Lab Results Interpretation: Elevated nonfasting blood glucose, elevated troponin ECG Interpretation ECG Interpretation: Sinus tachycardia Rate 113 Interpretation dififcult due to wandering baseline, some ST elevations in V2-V6, does not meet criteria for STEMI. Reviewed by Dr. Kam, who agrees. Time: 02:30 Interpreted by: ED physician, Chief Optometry Service ECG Interpretation: Sinus tachycardia, Rate 113 ST elevations in V2-V6, worse compared to prior, does not meet criteria for STEMI Time: 03:22 Interpreted by: ED physician ECG Interpretation: Sinus tachycardia, Rate 108 Inferior infarct, acute Time: 04:28 Interpreted by: ED physician X-Ray Chest Interpretation Chest Xray Interpretation: Impression: Hyperexpanded. Flattened diaphragms. No acute process. View: Portable Interpretation / Wet Read by: Wet read ED physician Re-Eval/Medical Decision Med Decision/Clinical Course 66-year-old male who is a well-known for poor compliance and poor behavior associated with hospitalizations. He is known to have severe coronary artery disease and severe COPD. He frequently comes to the emergency room for acute COPD exacerbations. He has had cardiac consultations for non-STEMI cardiac cath , but both v belt skiver on record are very reluctant to do this because of his poor compliance and poor behavior. They are fearful that the procedure cannot be safely done. Patient presents today with respiratory distress. A dyspnea workup was ordered but the patient refused everything except for the EKG chest x -ray and nebulizer treatments. The EKG showed some diffuse ST elevation in leads V2 through V4. There was quite a wandering baseline from his respiratory effort and the EKG did not clearly meet STEMI criteria. The EKG was faxed to Dr. Kam who also evaluated it. He felt that this did not represent a STEMI but the patient should certainly have serial troponin and EKG monitoring. This was discussed with the patient. He had had an increase in pain and was willing to stay and have more complete evaluation done. He refused aspirin and was given nitroglycerin with some improvement. His blood pressure came down to the 100 systolic range. Troponin was elevated at 0.385. Repeat EKG was far more concerning for STEMI. The patient was willing for fish farm laborer intervention but stated that he would need to be completely out for the procedure or he could not guarantee that his behavior would be good. Case was again discussed with . He in turn discussed the case with anesthesia and the ditcher. It was decided that intervention would be attempted with the patient under full general anesthesia. The patient was further treated with Plavix 300 mg by mouth and IV heparin bolus. He was given Versed 2 mg IV with good sedation. He was taken to the Staff Developer, see Staff Developer intervention documentation. There was obvious delays in the treatment of this individual, all of which were related to his uncooperativeness and reluctance to be treated. Source of Hx: Old records Re-Evaluation/Progress #1: Time of Eval: 03:05 Re-Evaluation/Progress Note: Informed patient of x-ray and EKG results. Patient appears worse on repeat evaluation. Will repeat EKG. He now agrees to blood draw. Re-Evaluation/Progress #2: Time of Eval: 03:20 Re-Evaluation/Progress Note: Patient was willing to get into bed and remove his shirt for repeat EKG. Patient requested to return to his chair. Patient states that he feels improved with breathing treatment. He agrees to take nitroglycerin. He reports ongoing chest pain. Re-Evaluation/Progress #3: Time of Eval: 04:30 Re-Evaluation/Progress Note: Informed the patient that he has an elevated troponin and that his EKG also shows changes that are concerning for a STEMI. He will need to go the fish farm laborer. Spoke with the patient about his noncompliance. The patient states that he cannot physically lay down to have a procedure unless he is unconscious. He agrees to fish farm laborer if he is sedated. He reports ongoing chest pain. Re-Evaluation/Progress #4: Time of Eval: 04:46 Re-Evaluation/Progress Note: Informed the patient of the conversation with Dr. Kam and the plan for fish farm laborer with anesthesia present. Patient understands and agrees with this plan. All questions were addressed. Consultation #1: Referral / Consult Name: Jj Kam MD Consulted With: Cardiology Call Returned at: 02:59 Note: Spoke wtih Dr. Kam, v belt skiver, about the patient's EKG. EKG does not meet STEMI criteria. Consultation #2: Referral / Consult Name: Jj Kam MD Consulted With: Cardiology Call Returned at: 04:37 Squad Leader: Will see patient, Agrees with eval, Agrees with plan Note: Spoke with Dr. Kam, v belt skiver, about the patient's EKG changes. He agrees that the most recent EKG is positive for a STEMI. The patient is willing to undergo catheterization if he is under anesthesia. Dr. Kam requests anesthesiolgy be on board for procedure. He will speak with Dr. Marin, the fish farm laborer physician. Consultation #3: Referral / Consult Name: Otis Isabel MD Consulted With: Anesthesia Call Returned at: 04:41 Note: Spoke with Dr. Isabel, anesthesia, about the patient's case. He agrees to see the patient and assist in cardiac catheterization. Consultation #4: Referral / Consult Name: Kyler Marin MD Consulted With: Cardiology Call Returned at: 05:00 Squad Leader: Will see patient, Agrees with eval, Agrees with plan, Requested fish farm laborer Note: Spoke with Dr. Marin, v belt skiver, about the patient's case. Counseled Regarding: Diagnosis, Lab results, Need for admission Discharge & Departure Impression: Primary Impression: STEMI (ST elevation myocardial infarction) Involved coronary artery: unspecified coronary artery Qualified Code: I21.3 - ST elevation (STEMI) myocardial infarction of unspecified site Additional Impressions: Noncompliance by refusing intervention or support Behavioral disorder Disposition: ADMITTED TO HOSPITAL Discharge Condition All VS Reviewed: Yes Condition: Stable Referrals: Yumiko James MD (PCP) Crit Care Except Billable Proc Time Spent: 30-74 minutes Services Performed: Patient management by me, Time spent at bedside, Reviewing test results, Reviewing imaging, Discussing patient care, Documentation in record Critical Care Notes: Patient presents with severe shortness of breath and chest pain and is eventually found to have a STEMI and taken to the Staff Developer. Scribe Attestation Portions of this note were transcribed by Zuleika Mayberry. I, Dr. Chicas personally performed the history, physical exam and medical decision-making; I reviewed and confirmed the accuracy of the information in the transcribed note. Signed by: Raimundo Peralta, 11/06/2016 0546 copies to: Yumiko James MD, Howard L MD Nov 06, 2016 02:07 Zuleika Mayberry Nov 06, 2016 02:36 chest pain. Re-Evaluation/Progress #4: Time of Eval: 04:46 Re-Evaluation/Progress Note: Informed the patient of the conversation with Dr. Kam and the plan for fish farm laborer with anesthesia present. Patient understands and agrees with this plan. All questions were addressed. Consultation #1: Referral / Consult Name: Jj Kam MD Consulted With: Cardiology Call Returned at: 02:59 Note: Spoke wtih Dr. Kam, v belt skiver, about the patient's EKG. EKG does not meet STEMI criteria. Consultation #2: Referral / Consult Name: Jj Kam MD Consulted With: Cardiology Call Returned at: 04:37 Squad Leader: Will see patient, Agrees with eval, Agrees with plan Note: Spoke with Dr. Kam, v belt skiver, about the patient's EKG changes. He agrees that the most recent EKG is positive for a STEMI. The patient is willing to undergo catheterization if he is under anesthesia. Dr. Kam requests anesthesiolgy be on board for procedure. He will speak with Dr. Marin, the fish farm laborer physician. Consultation #3: Referral / Consult Name: Otis Isabel MD Consulted With: Anesthesia Call Returned at: 04:41 Note: Spoke with Dr. Isabel, anesthesia, about the patient's case. He agrees to see the patient and assist in cardiac catheterization. Consultation #4: Referral / Consult Name: Kyler Marin MD Consulted With: Cardiology Call Returned at: 05:00 Squad Leader: Will see patient, Agrees with eval, Agrees with plan, Requested fish farm laborer Note: Spoke with Dr. Marin, v belt skiver, about the patient's case. Counseled Regarding: Diagnosis, Lab results, Need for admission Discharge & Departure Impression: Primary Impression: STEMI (ST elevation myocardial infarction) Involved coronary artery: unspecified coronary artery Qualified Code: I21.3 - ST elevation (STEMI) myocardial infarction of unspecified site Disposition: ADMITTED TO HOSPITAL Discharge Condition All VS Reviewed: Yes Condition: Stable Referrals: Yumiko James MD (PCP) Crit Care Except Billable Proc Time Spent: 30-74 minutes Services Performed: Patient management by me, Time spent at bedside, Reviewing test results, Reviewing imaging, Discussing patient care, Documentation in record Scribe Attestation Portions of this note were transcribed by Zuleika Mayberry. I, Dr. Chicas personally performed the history, physical exam and medical decision-making; I reviewed and confirmed the accuracy of the information in the transcribed note. Signed by: Raimundo Peralta, 11/06/2016 0546 copies to: Yumiko James MD, Aldo Menendez MD Nov 06, 2016 02:07 Zuleika Mayberry Nov 06, 2016 02:36
[2016-11-06 03:27] LABS: EOSINOPHILS % (AUTO) 6.1 % (0-5); MONOCYTES % (AUTO) 9.7 % (4-12); Mean Corpuscular Hemoglobin 28.5 pg (27.0-35.0); Mean Corpuscular Volume 85.1 fL (81-100); NEUTROPHILS % (AUTO) 61.8 % (40-74); Platelet Count 230 bil/L (150-400)
[2016-11-06] MEDS: Nitroglycerin 2% 1 Gm Ointment TOPICAL SCH ×2 (03:34→04:30)
[2016-11-06 03:46] LABS: D-DIMER 0.7 mg/L (<0.50); INR 0.95 ratio
[2016-11-06 04:07] LABS: Magnesium 1.6 mg/dL (1.6-2.6)
[2016-11-06 04:09] LABS: TROPONIN T 0.385 ug/L (0.0-0.011)
--- NOTE | 2016-11-06 05:22 | PCM.HPANE ---
Patient Data Surgeon Admitting Provider: Attending Provider: Primary Care Physician:Yumiko James MD Other Provider: Reason for Visit Chest Pain Ht/WT & BMI Height (Feet): 5 Height (Inches): 7 Weight (Kilograms): 113.63 Body Mass Index Allergies Coded Allergies: vancomycin (Verified Allergy, Intermediate, Rash,Itching,, 11/06/16) Per Q: Pt should tolerates vancomycin as long as the rate is slow Past Anesthesia History Anesthesia History: Denies:: Abnormal Airway, Anesthesia Reactions, Difficult Intubation Diabetes History Hx Diabetes?: Yes Type of Diabetes: Type I Glycemic Control: Insulin Dependent Current Bedside Blood Glucose: 264 MRSA MRSA: No Medications Hypertension Medication: No Home Meds Incl Beta Saravanan: No Previous Beta Saravanan Dose >24: Give Dose Perioperatively Active Scripts oxyCODONE-Acetaminophen 5-325 mg 1 Each Tablet1-2 Tab PO Q6H PRN For Pain #6 TABLET Ref 0 Prov:Bk Richardson MD 11/04/16 Nitroglycerin SL 0.4 Mg Tab.subl0.4 Mg SL Q5MIN #1 BOTTLE Prov:Bk Richardson MD 11/04/16 Nitroglycerin SL 0.4 Mg Tab.subl0.4 Mg SL Q5MIN PRN For Chest Pain #1 BOTTLE Prov:Kenrick Ho DO 09/24/16 Isosorbide MN ER 30 Mg Tab.er.24h30 Mg PO DAILY #30 TABLET Prov:Kenrick Ho DO 09/24/16 Atorvastatin Calcium 20 Mg Qpkeol16 Mg PO HS #30 TABLET Prov:Kenrick Ho DO 09/24/16 Amlodipine 5 Mg Tablet5 Mg PO DAILY 30 Days Prov:Kenrick Ho DO 09/24/16 Lisinopril 5 Mg Tablet5 Mg PO DAILY #30 TABLET Ref 0 Prov:Kenrick oH DO 09/24/16 Insuln Asp Prt/Insulin Aspart (NovoLOG 70/30 U100 Insulin Flexpen)100 Unit/Ml Unit12 Unit SUBQ BID #1 PENINJ Ref 0 Prov:Kenrick Ho DO 09/24/16 Glipizide 5 Mg Tablet5 Mg PO BIDAC #60 TABLET Prov:Kenrick Ho DO 09/24/16 Clopidogrel 75 Mg Hzmema64 Mg PO DAILY #30 TABLET Prov:Kenrick Ho DO 09/24/16 Metformin (Glucophage)1,000 Mg Tablet1,000 Mg ORAL BID #60 Prov:Kenrick Ho DO 09/24/16 Metoprolol Tartrate 75 Mg Wyvyle71 Mg PO BID #60 TABLET Ref 3 Prov:Kenrick Ho DO 09/24/16 Reported Medications Fluticasone Propionate (Flovent HFA 220 mcg)12 Gm Aer.w.adap1 Puff IH BID #12 GM Ref 0 10/28/16 Sertraline HCl (Sertraline)20 Mg/1 Ml Oral.conc25 Mg PO DAILY #1 BOTTLE Ref 0 10/28/16 Hydrocortisone 2.5 % Cream.appl30 Gm RC BID 10/28/16 Ketoconazole 120 Ml Skwwnil126 Ml TP DAILY 10/28/16 Albuterol Neb Soln 2.5 Mg/3 Ml Vial.neb2.5 Mg INHALATION Q4H Ref 0 10/28/16 Albuterol HFA (Proair HFA)8.5 Gm Hfa.aer.ad2 Puffs INHALATION Q4H PRN For Shortness of Breath #1 INHALER 10/28/16 History History of ENT Problems?: No HEENT History: Denies:: Cataracts Dysphagia Sinus Problem Hx of Heart Problems?: Yes Cardiovascular History: Positive for:: Chest Pain (hx shows SD, CP) Congestive Heart Failure Edema Hypertension Irregular Heartbeat (paroxymal atrial tachycardia ) Denies:: Cardiac Surgery Heart Murmur Pacemaker Thrombophlebitis Hx of Respiratory Problem?: Yes Respiratory History: Positive for:: Asthma COPD Dyspnea Emphysema Hemoptysis Pneumonia Denies:: Chest Surgery Tuberculosis Hx Neurologic Problems?: No Neurological History: Denies:: Alzheimer's Disease CVA Dementia Dizziness Headaches Parkinson's Disease Seizures Hx of GI Problems?: No Gastrointestinal History: Denies:: Diverticulitis Gastroesphageal Reflux Gastrointestinal Bleeding Heartburn Hepatitis Hiatal Hernia Rectal Bleeding Hx of Problems?: No Genitourinary History: Denies:: HX of Hemodialysis Kidney Stones Urinary Tract Infection HX of Peritoneal Dialysis: No Male Hx: Denies:: Prostate Problems Scrotal Mass Testicular Surgery Hx Musculoskeletal Problems?: Yes Musculoskeletal History: Positive for:: Back Injury (pt states crushed vertebrae 4, shoulder left ) Denies:: Joint Replacement Musculoskeletal Trauma Hx of Psycho/Social Problems?: Yes Psycho Social History: Positive for:: Anxiety Denies:: Bipolar Disorder Hx Depression Suicide Attempt Hx Surgeries?: Yes Hx Any Other Health Problems?: Yes Other History: Positive for:: Endocrine Disease Hospitalization (copd exacerbation - multiple) Denies:: Cancer Thyroid Disease History Blood Transfusions: Denies:: Blood Transfuse Reaction Blood Transfusions Hx Diabetes: YesBedside Blood Glucose: 264 Hx Alcohol Use: NoHx Substance Use: No Smoking Status: Former Smoker Have You Smoked inLast 12 mo: No Stop/Bang Treated for Sleep Apnea?: No Do You Have a CPAP Machine?: No Risk Assessment Category Category 1A: Patient has history of documented sleep apnea, and HAS NOT received any narcotic, sedative or anesthesia administration during this stay. Category 1B: Patient has history of documented sleep apnea, and HAS received any narcotic , sedative or anesthesia administration during this stay Category 2: Patient has SUSPECTED Obstructive Sleep Apnea, and HAS received any narcotic , sedative or anesthesia administration during this stay. Category 3: Patient has SUSPECTED Obstructive Sleep Apnea and HAS NOT received narcotic, sedative or anesthesia administration during this stay. Category 4: Outpatient in Procedural Areas with known sleep apnea or who screen positive for High Risk via the STOP/BANG questionnaire. Exam Exam Vital Signs Vital Signs Date Time Temp Pulse Resp B/P Pulse Ox O2 Delivery O2 Flow Rate FiO2 11/06/16 04:58 105 22 100/53 98 Nasal Cannula 5 11/06/16 03:51 36.7 116 26 103/68 97 Nasal Cannula 6 11/06/16 02:32 116 30 125/110 98 Nasal Cannula 11/06/16 01:25 36.0 114 24 143/89 90 Room Air General Appearance: Alert, Oriented X3, Cooperative, No Acute Distress HEENT/AIRWAY: MP 2 Lungs: Clear to Auscultation, Normal Air Movement Heart: Exam Unremarkable, Regular Rate/Rhythm, No Murmurs/Rubs/Gallops Meds/Labs/Diagnostics Admission Meds Current Medications Albuterol (AccuNeb 2.5 mg/ 3 mL Inh) 5 mg ONCE ONCE NEB Last administered on t 02:11; Start 11/06/16 at 01:55; Stop 11/06/16 at 01:56; Status DC Nitroglycerin (Nitro-Bid 2% Oint) 1 inch NOW TOPICAL Last administered on t 03:34; Start 11/06/16 at 03:25 Bedside Blood Glucose: 264 Labs Test 11/06/16 03:13 White Blood Count 6.8th/mm3 (3.8-10.1) Red Blood Count 5.30mil/mm3 (4.40-5.80) Hemoglobin 15.1g/dL (13.8-17.2) Hematocrit 45.1% (41.0-50.0) Mean Corpuscular Volume 85.1fL (81-100) Mean Corpuscular Hemoglobin 28.5pg (27.0-35.0) Mean Corpuscular Hemoglobin Concent 33.5% (32.0-37.0) Red Cell Distribution Width 15.3% (12.3-15.4) Platelet Count 230bil/L (150-400) Neutrophils (%) (Auto) 61.8% (40-74) Lymphocytes (%) (Auto) 20.4% (14-46) Monocytes (%) (Auto) 9.7% (4-12) Eosinophils (%) (Auto) 6.1% (0-5) Basophils (%) (Auto) 1.0% (0-3) Prothrombin Time 10.2sec (8.1-12.5) Prothromb Time International Ratio 0.95ratio D-Dimer 0.7mg/L (<0.50) Sodium Level 140mEq/L (134-144) Potassium Level 4.3mEq/L (3.5-5.2) Chloride Level 100mEq/L (97-108) Carbon Dioxide Level 22mmol/L (18-29) Blood Urea Nitrogen 21mg/dL (8-27) Creatinine 0.85mg/dL (0.76-1.27) Estimat Glomerular Filtration Rate 96mL/min (>59) Glucose Level 292mg/dL (60-99) Lactic Acid Level 1.4mmol/L (0.4-2.0) Calcium Level 9.5mg/dL (8.5-10.1) Magnesium Level 1.6mg/dL (1.6-2.6) Total Bilirubin 0.5mg/dL (0.0-1.2) Aspartate Amino Transf (AST/SGOT) 27U/L (0-50) Alanine Aminotransferase (ALT/SGPT) 25U/L (0-44) Alkaline Phosphatase 74U/L (25-160) Troponin T 0.385ug/L (0.0-0.011) Pro-B-Type Natriuretic Peptide 1954pg/mL (0-376) Total Protein 7.5g/dL (6.4-8.4) Albumin 4.2g/dL (3.4-5.0) Plan Impression Patient chart reviewed, patient interviewed and anesthestic plan with risks, benefits, and alternatives discussed, and informed consent obtained. ASA Physical Status: ASA3 Severe Disease (STEMI with need for general anesthesia due to patient combativness) Anesthetic Plan: GA Bene/Risks/Altern/Consents: Yes HP Complete Prior to Induction: Yes Otis Isabel MD Nov 06, 2016 05:22
[2016-11-06] MEDS ORDERED: Lactated Ringer's 1,000 ML IV ONE (05:23)
[2016-11-06] MEDS ORDERED: Heparin 5,000 Unit/mL Inj ONE ×4 (05:25→06:45)
[2016-11-06] MEDS ORDERED: 0.9% Sodium Chloride 1,000 ML ONE ×3 (05:28→07:06)
[2016-11-06] MEDS ORDERED: Heparin 1,000 Units/500 mL NS Premix IV ONE (05:29)
[2016-11-06] MEDS ORDERED: Heparin 1,000 Unit/mL 10 mL Inj ONE (05:29)
[2016-11-06] MEDS ORDERED: Heparin 5,000 Unit/mL Inj IVPUSH ONE (05:30)
[2016-11-06] MEDS ORDERED: Atropine 1 mg/10 mL (Code) Syringe ONE (05:40)
[2016-11-06] MEDS ORDERED: Phenylephrine/NS-PF 100 mCg/mL 5 mL Syringe IVPUSH ONE (05:40)
[2016-11-06] MEDS ORDERED: Nitroglycerin 50,000 mcg/250 mL D5W Premix IV ONE (05:41)
[2016-11-06] MEDS ORDERED: Insulin Human REGular-Omnicell 100 Unit/mL ONE (06:28)
[2016-11-06] MEDS ORDERED: 0.9% Sodium Chloride 500 ML ONE (06:35)
[2016-11-06] MEDS ORDERED: Lactated Ringer's 1,000 ML IV SCH (07:21)
[2016-11-06] MEDS ORDERED: Lactated Ringer's 500 ML IV PRN (07:21)
[2016-11-06] MEDS ORDERED: fentaNYL-PF 50 mCg/mL 2 mL Inj IVPUSH PRN (07:25)
[2016-11-06] MEDS ORDERED: Phenylephrine 10,000 mCg/mL Inj IVPUSH PRN (07:25)
[2016-11-06] MEDS ORDERED: Ondansetron 2 mg/mL 2 mL Inj IVPUSH PRN (07:25)
[2016-11-06] MEDS ORDERED: HYDROmorphone 1 mg/mL Inj IVPUSH PRN (07:25)
[2016-11-06] MEDS ORDERED: Dexamethasone 4 mg/mL Inj IVPUSH PRN (07:25)
[2016-11-06] MEDS ORDERED: EPHEDrine Sulfate 50 mg/mL Inj IVPUSH PRN (07:25)
[2016-11-06] MEDS ORDERED: MetoCLOpramide 5 mg/mL 2 mL Inj IVPUSH PRN (07:25)
[2016-11-06] MEDS: Propofol Inj 1,000,000 MCG in IV Premix 1 EACH IV SCH ×5 (08:23→23:13)
[2016-11-06] MEDS ORDERED: Propofol 10,000 mCg/mL 100 mL Inj ONE (08:30)
[2016-11-06] MEDS ORDERED: fentaNYL 2,500 mCg/250 mL Premix IV ONE (08:30)
[2016-11-06] MEDS: fentaNYL 2,500 mCg/250 mL 2,500 MCG in IV Premix 1 EACH IV SCH ×2 (08:35→09:13)
--- NOTE | 2016-11-06 08:58 | DRSVH ---
PROCEDURE: X-RAY CHEST ONE VIEW, PORTABLE ([id number]) INDICATIONS: CHEST PAIN TECHNIQUE: One view of the chest was acquired. COMPARISON: [facility], CR, XR CHEST 1VW (PORTABLE), 11/03/2016, 16:35. FINDINGS: Surgical changes and devices: None. Lungs and pleura: No pleural effusions or pneumothorax. Lungs are clear. Mediastinum: Mediastinal contours appear normal. Heart size is normal. Bones and chest wall: No suspicious bony lesions. Overlying soft tissues appear unremarkable. IMPRESSION: No acute cardiopulmonary disease. Dictated by: Simba Lezama [facility] Interpreted: Macarena Oliver MD on 11/06/2016 at 8:58 Transcribed by: SHANNA on 11/06/2016 at 8:58 Approved by: Macarena Oliver MD, PhD on 11/06/2016 at 17:02
--- NOTE | 2016-11-06 09:32 | DRSVH ---
PROCEDURE: X-RAY CHEST ONE VIEW, PORTABLE ([id number]) INDICATIONS: TUBE PLACEMENT TECHNIQUE: One view of the chest was acquired. COMPARISON: [facility], CR, XR CHEST 1VW (PORTABLE), 11/06/2016, 1:33. FINDINGS: Surgical changes and devices: There is a new endotracheal tube with the tip approximately 5.5 cm from the manuel. There is also a new nasogastric tube extending into the stomach with the tip not includ ed on the current study. Lungs and pleura: No pleural effusions or pneumothorax. There are increased linear medial bibasilar opacities compatible with atelectasis or aspiration. There is pulmonary vascular prominence compatib le with mild edema. Mediastinum: Mediastinal contours appear mildly prominent which may be due to low lung volumes or po rtable supine technique. Heart size is normal. Bones and chest wall: No suspicious bony lesions. Overlying soft tissues appear unremarkable. IMPRESSION: 1. New endotracheal tube tip approximately 5.5 cm from the manuel. 2. Linear medial opacities compatible with atelectasis or aspiration. 3. Probable mild edema. Dictated by: Jimmy Toledo M.D. on 11/06/2016 at 9:21 Approved by: Jimmy Toledo M.D. on 11/06/2016 at 9:31
[2016-11-06 10:43] LABS: APPEARANCE,URINE CLEAR (CLEAR,HAZY); COLOR,URINE STRAW (YELLOW); OCCULT BLOOD,URINE NEGATIVE (NEGATIVE); UROBILINOGEN,URINE NORMAL (NORMAL)
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
--- NOTE | 2016-11-06 11:27 | NUR ---
Social Work: Initial Assessment D: Per EMR review, pt is a 66 year old male admitted for STEMI. Pt is Medicare insurance with no supplement, LTC insurance or VA benefits. PCP is Yumiko James MD at [facility]. NOK Is Radha Zarate, sister, . Per previous admission notes, pt does not want his sister contacted unless pt is expected to . Pt has completed AD and they are on file. Readmit score is not entered at this time. Pt is currently on mechanical ventilation and not able to engage in assessment. Information gathered from previous hospitalizations and historical knowledge. Pt is well known to case management department due to multiple readmissions and non-compliance with care. Pt is homeless by choice and lives in his car. Pt has income to pay for an apartment however chooses to live in his car. Pt is w/c bound at baseline. Pt has 02 but is inconsistent with using it. Pt has chronic pulmonology and cardiac problems. Pt admitted to CCU after a cardiac cath. NURSE ADVOCATE discussed pt with MD. They anticipate pt will likely be extubated tomorrow. A: Pt who is w/c bound at baseline but I with transfers to his car P: Anticipate pt to likely discharge back to his car pending clinical course post-extubation. NURSE ADVOCATE to meet with pt at bedside when pt is appropriate for further discharge planning. SURSEH Wisdom Addendum: 11/06/16 at 1153 by FARHEEN JOSE SS Amended: Links added.
[2016-11-06] MEDS: 0.9% Sodium Chloride 1,000 ML IV SCH ×2 (11:55→16:27)
--- NOTE | 2016-11-06 11:59 | ABG ---
DateTimeAnalyzed 11:55:00 -_ pH ____7.302 - 7.350 7.450 pCO2 ___46.6__ -mmHg 35.0 45.0 pO2 ___74.1__ -mmHg 69.0 116 HCO3- ___22.3__ -mmol/L 22.0 26.0 ABE ___-3.6__ -mmol/L -2.0 2.0 tHb ___11.9__ -g/dL O2Hb ___92.7__ -% COHb ____1.2__ -% MetHb ____0.8__ -% sO2 ___94.6__ -% 25.0 FIO2 ___30.0__ -% PEEP ____5.0__ -cmH2O Set_RR ___16.0__ -b/min Vt __500.0__ -L Drawn By MT - Date/Time Notified____ 11:59:00 -_ Oxygen Device 1 VENTILATOR - Notified By MT - Notified Whom ___Parimi - B 752 -mmHg tO2 ___15.5__ -Vol% Collin test _Positive -
[2016-11-06] MEDS ORDERED: Albuterol HFA 60 Puff 8 Gm Inhaler INHALATION PRN (12:05)
--- NOTE | 2016-11-06 12:20 | PCM.CHPMED ---
Subjective Date of Service: Nov 06, 2016 Provider requesting consult: Kenrick Ho DO Primary Physician: Admitting Physician: Kyler Marin MD Primary Care Physician: Yumiko James MD Attending Physician: Kyler Marin MD Chief Complaint: Chief Complaint: STEMI History of Present Illness: Pulmonolgy/ICU consultation: Attending Dr. Park. Requesting Physician Dr. Ho. reason for consult - Pt intubated and ventilated 66 year old male with PMH COPD - on home O2, HTN, CHF CAD multiple prior NSTEMIs with recent NSTEMI admission 10/30/2016but refused cardiac work up and was discharged. He has a significant history of noncompliance. On 11/06/2016 he presented to [facility] ED with SOB and CP ECG showed ST elevation inn anterior leads which worsened during the course of his ED stay. He received a diagnostic cardiac catheterization with stent placement to the LAD. Pt transferred to the ICU for ventilation management with expectant extubation. Unable to obtain review of systems secondary to Pt intubated and sedated. PMH Past Medical History No outpatient records in [facility] to compare Per Multiple previous hospital admission records: Frequent hospital admissions for COPD exacerbations (which he attributes to "cedar dust lung disease") CAD NSTEMI HTN Hypertriglyceridemia DM2 Tobacco abuse Obesity Chronic lower extremity cellulitis Chronic venous insufficiency Paroxysmal atrial tachycardia/atrial fibrillation CHF with systolic and diastolic dysfunction MRSA positive History of nonadherence to medical treatment and discharge via AMA PCP: Dr. James Bedside Blood Glucose: 264 Surgical History None reported Home Medications Albuterol HFA 2 puffs inhalation every 4 when necessary Albuterol neb solution 2.5 mg/3 mL vial neb every 4 Amlodipine (Amlodipine) 5 Mg Tablet 5 MG PO DAILY Aspirin Chew (Aspirin Chew) 81 Mg Chew 81 MG PO DAILY Atorvastatin Calcium (Atorvastatin Calcium) 20 Mg Tablet 20 MG PO HS Clopidogrel 75 mg tablet daily Fluticasone propria on 812 g aerosol.W doubt a depth on puff one hour twice a day Glipizide (Glipizide) 5 Mg Tablet 5 MG PO BIDAC Insuln Asp Prt/Insulin Aspart (NovoLOG 70/30 U100 Insulin Flexpen) 100 Unit/Ml Unit 12 UNIT SUBQ BID Isosorbide mononitrate 30 mg ER daily Ketoconazole (Nizoral) 120 Ml Shampoo 120 ML TOP BID Lisinopril (Lisinopril) 5 Mg Tablet 5 MG PO DAILY Metformin (Glucophage) 1,000 Mg Tablet 1,000 MG ORAL BID Metoprolol Tartrate (Metoprolol Tartrate) 75 Mg Tablet 75 MG PO BID Nitroglycerin 0.5 mg tablet sublingual every 5 min. And 3 Sertraline HCl (Sertraline) 50 Mg Tablet 25 MG PO DAILY Oxycodone acetaminophen 5-325 1-2 tabs by mouth every 6 hours when necessary Allergies: Coded Allergies: vancomycin (Verified Allergy, Intermediate, Rash,Itching,, 11/06/16) Per Q: Pt should tolerates vancomycin as long as the rate is slow Family History Family History Family hx of DM2 Social History Occupation: Homeless, unemployed. VeteranHx Alcohol Use: NoHx Substance Use: NoHx Tobacco Use: Yes (quit 9 years ago) Smoking Status: Former Smoker Exam Vital Signs Vital Sign - Last Date Time Temp Pulse Resp B/P Pulse Ox O2 Delivery O2 Flow Rate FiO2 11/06/16 09:30 89 16 88/62 11/06/16 08:48 87 40 11/06/16 04:58 Nasal Cannula 5 11/06/16 03:51 36.7 Intake and Output 11/05/16 11/05/16 11/06/16 Cumulative From/Thru 15:00 23:00 07:00 11/06/16 01:25 - 11/06/16 03:47 Intake Total 300 ml 300 ml Output Total 250 ml 250 ml Balance 50 ml 50 ml Intake Oral 300 ml 300 ml Output Urine Total 250 ml 250 ml Additional Information: General: Intubated and sedated, lying in hospital bed. HEENT: Normocephalic, atraumatic. External ears without defect. Pupils equal, round, and reactive to light and accommodation. ET tube in place Neck: No jugular venous distension. Cardiovascular: Regular rate and rhythm with no murmurs appreciated Pulmonary: Clear to auscultation bilaterally with no crackles, wheezes,. Abdomen: Soft to palpation, nondistended. Extremities: Lower extremity bilateral erythema with excoriations. No edema. Left and Right AC line in place. Right going cath insertion site non erythematous Psychiatric: Intubated and Sedated Ventilator settings: Tidal volume 500. Respiratory rate 16. FiO2 0.4. PEEP 10. IV drips and Sedatives: NS 100/hr. Fentanyl 75mcg/kg/hr. Propofol 20mcg/kg/hr IV lines: Left and right AC IV line in place I&O: in + 300ml, out - 250ml, total -50ml Lab and Diagnostics Result Diagram: 11/06/1631211/06/16312 X-Rays, CTs and MRIs . X-RAY CHEST ONE VIEW, PORTABLE IMPRESSION: No acute cardiopulmonary disease. Dictated by: Simba Lezama RRA Interpreted: Macarena Oliver MD on 11/06/2016 at 8:58 X-RAY CHEST ONE VIEW, PORTABLE IMPRESSION: 1. New endotracheal tube tip approximately 5.5 cm from the manuel. 2. Linear medial opacities compatible with atelectasis or aspiration. 3. Probable mild edema. Dictated by: Jimmy Toledo M.D. on 11/06/2016 at 9:21 Assessment & Plan Assessment 66 gentleman with PMH CAD s/p stent placement 11/06/2016, HTN, CHF HLD and history of non compliance with multiple AMA discharges admitted for STEMI with stent placement to LAD. Pt is unable to lay down at baseline secondary to his chronic lung disease and would only agree to catheterization if he was sedated. 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 Hospital Day 1, ventilator day 1. 1. STEMI s/p stent placement to LAD. Present on admission. Presumed stable -ECG showed ST elevation in anterior leads, repeat ECG showed ST elevation progression with rising troponin levels -Aspirin loading dose 325 received. Continue daily ASA 81mg -Clopidogrel 75mg daily -Hold home medications; lisinopril 5mg daily, Amilodipine 5mg daily, isosorbide mononitrate ER 30mg daily. Consider restarting lisinopril when hemodynamic state improves (BP currently 88/68 and HR 80) Compliance will be an barrier for this Pt - recommend minimal outpatient discharge medications -Hold home Metoprolol Tartrate 75mg BID. Consider restarting when hemodynamic state improves starting at 12.5mg BID -Repeat EKG in a.m. -Start statin 40mg daily 2. Intubation secondary to dyspnea in the supine position. Acute, not present on admission. - Pt would only agree to heart catheterization if he was sedated secondary to his inability to lay flat - Ventilator settings are FiO2 0.4, TV 500, PEEP 10, RR 16 - Propofol 20mcg/kg/hr - Fentanyl 75mcg/kg/hr - CXR in am 3. DM2, present on admission. Ongoing - Blood Glucose 292 on admission, Pt is most likely non compliant with out patient medications - High dose correctional scale insulin - Consider addition of basilar insulin 4. COPD with Hx of multiple exacerbations -Continue home AccuNebs Q4 scheduled 5. CHF, present on admission. Ongoing -Echo results pending -prior echo 03/03/2016 showed no significant change from previous, possibly some hypokinesis - NS at 125/hr, will closely monitor this 6. Hypertension. Present on admission, ongoing - Hold home meds as in #1. 7. Presumed depression. - Held Pt's home Sertraline, no Dx to match with this medication. - Confirm once Pt is extubated. Problems: Resuscitation Status: CPR: Attempt Resuscitation Attending Statement I have seen and examined this patient with the resident physician. Vital signs , labs, imaging have been reviewed. I agree with the assessment and plan above. Please refer to my separately dictated progress note for any modifications to above. Felicia Park M.D. Pulmonary and Critical Care medicine Pager [phone] HARINDER PACKER DO Nov 06, 2016 09:45 Felicia Park MD Nov 06, 2016 16:05
[2016-11-06] MEDS ORDERED: Alum-Mag Hydrox-Simeth 30 mL Suspension PO PRN (13:25)
--- NOTE | 2016-11-06 13:45 | PCM.HPMED ---
Subjective Date of Service Nov 06, 2016 Primary Provider: Admitting Physician: Kyler Marin MD Primary Care Physician: Yumiko James MD Attending Physician: Kyler Marin MD Admit Status: From the Emergency Department, Critical Care Chief Complaint: STEMI History of Present Illness: 66 year old male with PMH COPD, chronic respiratory failure on home oxygen, HTN , HFrEF, CAD multiple prior NSTEMIs with recent NSTEMI admission 10/30/2016 but refused cardiac work up and was discharged. He has a significant history of noncompliance. On 11/06/2016 he presented to [facility] ED with shortness of breath and chest pain with ECG showed ST elevation in anterior leads which worsened during the course of his ED stay. He received a diagnostic cardiac catheterization with stent placement to the LAD. Pt transferred to the ICU for ventilation management with expectant extubation. HPI and ROS were unable to be obtained from the patient at this time as he is intubated and sedated. Review of Systems: A comprehensive review of systems was unable to be obtained as the patient was intubated and sedated at the time of this admission. Allergies Coded Allergies: vancomycin (Verified Allergy, Intermediate, Rash,Itching,, 11/06/16) Per Dr. Sorto: Pt should tolerates vancomycin as long as the rate is slow Home Medications Albuterol HFA 2 puffs inhalation every 4 when necessary Albuterol neb solution 2.5 mg/3 mL vial neb every 4 Amlodipine (Amlodipine) 5 Mg Tablet 5 MG PO DAILY Aspirin Chew (Aspirin Chew) 81 Mg Chew 81 MG PO DAILY Atorvastatin Calcium (Atorvastatin Calcium) 20 Mg Tablet 20 MG PO HS Clopidogrel 75 mg tablet daily Fluticasone propria on 812 g aerosol.W doubt a depth on puff one hour twice a day Glipizide (Glipizide) 5 Mg Tablet 5 MG PO BIDAC Insuln Asp Prt/Insulin Aspart (NovoLOG 70/30 U100 Insulin Flexpen) 100 Unit/Ml Unit 12 UNIT SUBQ BID Isosorbide mononitrate 30 mg ER daily Ketoconazole (Nizoral) 120 Ml Shampoo 120 ML TOP BID Lisinopril (Lisinopril) 5 Mg Tablet 5 MG PO DAILY Metformin (Glucophage) 1,000 Mg Tablet 1,000 MG ORAL BID Metoprolol Tartrate (Metoprolol Tartrate) 75 Mg Tablet 75 MG PO BID Nitroglycerin 0.4 mg tablet sublingual every 5 min. And 3 Sertraline HCl (Sertraline) 50 Mg Tablet 25 MG PO DAILY Oxycodone acetaminophen 5-325 1-2 tabs by mouth every 6 hours when necessary Important to note that this patient is notoriously noncompliant and repeatedly states at past ED visits and past admissions that he does not take his insulin and he only takes three medications and he is never sure which medications. PMH No outpatient records in [facility] to compare Per Multiple previous hospital admission records: COPD (Pt attributes to "cedar dust lung disease") Chronic respiratory failure on 2-3L Oxygen Coronary Artery Disease Non-ST segment Elevation Myocardial Infarction Hypertension Hypertriglyceridemia Diabetes mellitus Type 2 non-complaint on insulin Tobacco dependence Obesity Chronic lower extremity cellulitis Chronic venous insufficiency Paroxysmal atrial tachycardia/atrial fibrillation Congestive Heart Failure with systolic and diastolic dysfunction history of MRSA positive History of nonadherence to medical treatment and discharge via AMA PCP: Dr. James Surgical History None reported Family History Family history of DM2 Social History Occupation: Homeless, unemployed. Hx Alcohol Use: No Hx Substance Use: No Hx Tobacco Use: Yes (quit 9 years ago) Smoking Status: Former Smoker Living Arrangement: Homeless Exam Vital Signs Vital Sign - Last Date Time Temp Pulse Resp B/P Pulse Ox O2 Delivery O2 Flow Rate FiO2 11/06/16 12:30 36.4 83 18 93/68 97 Mechanical Ventilator 40 11/06/16 04:58 5 Intake and Output 11/05/16 11/05/16 11/06/16 Cumulative From/Thru 15:00 23:00 07:00 11/06/16 01:25 - 11/06/16 03:47 Intake Total 300 ml 300 ml Output Total 250 ml 250 ml Balance 50 ml 50 ml Intake Oral 300 ml 300 ml Output Urine Total 250 ml 250 ml Exam General: Obese disheveled man appearing older than stated age, Intubated and sedated, lying in hospital bed. Eyes: PERRLA, anicteric sclera, noninjected conjunctiva HEENT: Normocephalic, atraumatic. External ears without defect. ET tube in place Neck: Trachea midline, No jugular venous distension. Cardiovascular: Regular rate and rhythm with no murmurs appreciated Pulmonary: Clear to auscultation bilaterally with no crackles, wheezes,. Abdomen: Soft to palpation, nondistended, no organomegaly noted Extremities: Lower extremity bilateral erythema and induration and bilateral llanos excoriations . No edema. Left and Right AC line in place. Right femoral cath insertion site non erythematous no active bleeding Neuro: unable to assess intubated and sedated not following commands Psychiatric: unable to assess intubated and sedated not following commands Lab and Diagnostics Result Diagram: 11/06/1631211/06/16312 X-Rays, CTs and MRIs PROCEDURE: X-RAY CHEST ONE VIEW, PORTABLE ([id number]) IMPRESSION: 1. New endotracheal tube tip approximately 5.5 cm from the manuel. 2. Linear medial opacities compatible with atelectasis or aspiration. 3. Probable mild edema. Dictated by: Jimmy Toledo M.D. on 11/06/2016 at 9:21 Approved by: Jimmy Toledo M.D. on 11/06/2016 at 9:31 12-lead ECG -ECG showed ST elevation in anterior leads V2-V4, repeat ECG showed ST elevation progression with rising troponin levels Additional Diagnostics: DIAGNOSTIC CARDIAC CATHETERIZATION FINDINGS: 1. LMCA: The left main coronary artery is intact. 2. LAD: The left anterior descending coronary artery is heavily calcified and initially occluded proximally at the small first septal. When opened, it is a medium-sized transapical vessel with severe diffuse disease in the proximal and mid portions. 3. LCX: The left circumflex coronary artery is a medium-sized vessel. The first OM is a medium-sized branching vessel with 80% lesions. The second OM is a medium-sized vessel with a 70% tubular proximal narrowing. Thereafter the mid LCX is a medium-sized vessel with a 70% proximal lesion. 4. RCA: Dominant. A 90% tubular proximal lesion. The right coronary artery is a large vessel with a large PDA and a large RPLB. 5. LHC: LVED of 20 mmHg; and no systolic gradient across the aortic valve on pullback. Systolic blood pressure 100. CONCLUSIONS: 1. PCI of proximal occluded LAD--Vision BMS--2.5 x 23 mm post dilated to 2.75 mm. 2. ACS--anterior LA with culprit occluded proximal LAD. 3. Coronary artery disease (CAD)--three-vessel disease including occluded proximal LAD; 80% OM 1, 70% mid LCX; and 90% proximal RCA. Klyer Marin MD 11/06/16 0857 Assessment & Plan 66 gentleman with PMH CAD, HTN, CHF, HLD and history of non compliance with multiple AMA discharges admitted for STEMI with stent placement to LAD. Pt is unable to lay down at baseline secondary to his chronic lung disease and would only agree to catheterization if he was sedated. Pt Intubated and sedated for cath lab technologist and admitted to ICU for ventilation management. Hospital Day 1, ventilator day 1. 1. STEMI s/p stent placement to LAD. Present on admission. Presumed stable -ECG showed ST elevation in anterior leads V2-V4, repeat ECG showed ST elevation progression with rising troponin levels -Aspirin loading dose 325 received. Continue daily ASA 81mg -Clopidogrel 75mg daily -Hold home medications; lisinopril 5mg daily, Amilodipine 5mg daily, isosorbide mononitrate ER 30mg daily. Consider restarting lisinopril when hemodynamic state improves (BP currently 88/68 and HR 80) Compliance will be an barrier for this Pt - recommend minimal outpatient discharge medications -Hold home Metoprolol Tartrate 75mg BID. Consider restarting when hemodynamic state improves starting at 12.5mg BID -Repeat EKG in a.m. -Start Atorvastatin 40mg daily 2. acute on chronic orthopnea, present on admission - Pt would only agree to heart catheterization if he was sedated secondary to his inability to lay flat - Ventilator settings are FiO2 0.4, TV 500, PEEP 10, RR 16 - Propofol 20mcg/kg/hr - Fentanyl 50mcg/kg/hr - nursing advised to limit sedation to lowest - CXR in am 3. chronic Diabetes Mellitus type 2, present on admission. Ongoing - Blood Glucose 292 on admission - patient is noncompliant with outpatient medications and previous requests to start insulin the patient is prescribed Glipizide - High dose correctional scale insulin - Consider addition of basilar insulin 4. Chronic Obstructive Pulmonary Disease, present on admission - only mild intermittent wheezing noted on admission physical - Continue home AccuNebs Q4 scheduled 5. Systolic and Diastolic Congestive Heart Failure, present on admission. Ongoing - prior echo 03/03/2016 showed no significant change from previous, possibly some hypokinesis - Echo results pending - NS at 125/hr, will closely monitor this 6. Chronic respiratory failure, present on admission, stable - on 2-3L Oxygen in car 7. chronic Hypertension. Present on admission, stable - Hold home meds as in #1. 8. Chronic hyperlipidemia, present on admission, presumed stable - treated as above 9. chronic depression, present on admission, stable - Held Pt's home Sertraline 10. Tobacco dependence, chronic, present on admission - nicotine patch available on request 11. chronic Obesity, present on admission, presumed stable - recommend weight loss 12. Chronic venous insufficiency, present on admission, stable - monitor for signs of infection as the patient also has chronic cellulitis 13. Paroxysmal atrial tachycardia/atrial fibrillation, chronic, not present on admission - rate control with Metoprolol as above DVT prophylaxis: Heparin subcutaneous GI: Ranitidine Antiemetics available PRN Bowel Regime available PRN Code status : Full at this time Patient is admitted to the CCU as inpatient status with expected length of stay greater than 2 midnights given the complicated nature of this illness and the possible complications. Pain Evaluation: Adequate Pain Control VTE Prophylaxis: Sub-Q Heparin (Unfractionated) Resuscitation Status: CPR: Attempt Resuscitation Attending Statement The patient was seen and examined together with Dr. Ho on 11/06/2016 and I agree with the history, exam and plan as outlined in the note above. . Kenrick Ho DO Nov 06, 2016 13:45 Mariano Porter MD Nov 08, 2016 08:33
--- NOTE | 2016-11-06 14:26 | CONS ---
[address] [address] CONSULTATION REPORT PATIENT: JULIA LUNA : 1950 MR#: [id number] ADMIT: 11/06/2016 JOB ID: [id number] DATE OF SERVICE: 11/06/2016 PATIENT IDENTIFICATION: The patient is a 66-year-old man seen in consultation at the request of Dr. Porter for acute respiratory failure in the setting of recent ST-elevation myocardial infarction, status post cardiac cath and LAD stent placement. The patient was seen and evaluated with resident physician, Dr. Avelino Wise. Please refer to his separate detailed note for additional information. HISTORY OF PRESENT ILLNESS: The patient is a 66-year-old man who is homeless and has a history of psychosocial problems. He has had numerous emergency room and hospital visits which were complicated by him leaving against medical advise and being apparently abusive and threatening to staff. He has also had a longstanding history of recurrent NJ and presented to the emergency room last night with chest pain. EKG showed evidence of ST-elevation NJ, but the patient did not want to be awake for his cardiac cath, so he was intubated for the procedure to the best of my understanding. He had a cardiac cath which showed LAD occlusion and had a bare metal stent placed by Dr. Marin early this morning and was transferred to the ICU subsequently. Remaining history, including review of systems, past medical history, social history, and family history could not be obtained from the patient because he is intubated, and all the information I have is summarized above. You could also refer to Dr. Wise's separate note for additional information. PHYSICAL EXAMINATION: Vital signs reviewed. Afebrile. BP is 86/61. He is on 40% FiO2 with PEEP of 10 cm. General: Intubated, sedated, completely unresponsive. Pupils equal and reactive. Neck: No cervical lymphadenopathy. Chest: Clear to auscultation. Heart: Regular rate, rhythm. Abdomen soft and nontender, but slightly distended. Extremities: Some erythema of bilateral lower extremities. Skin: No rashes other than the lower extremity erythema, likely venous stasis dermatitis. No cyanosis or clubbing of the extremities either. LABORATORIES: Reviewed. CBC and chemistry within normal limits. Troponin T was 0.38. BNP was 1900. Cultures with no growth. Chest x-ray reviewed and shows ET tube 5.5 cm above the manuel and findings of mild pulmonary edema. Arterial blood gas shows pH of 7.3, pCO2 of 47, pO2 of 74, bicarb of 22. ASSESSMENT AND RECOMMENDATIONS: 1. Acute hypoxic respiratory failure. 2. ST-elevation myocardial infarction, status post cardiac cath with left anterior descending stent. 3. History of noncompliance and difficult behavioral issues in the past. 4. Hypotension. This 66-year-old homeless man with a known history of coronary artery disease is presenting with a ST-elevation myocardial infarction and was intubated electively for the procedure, underwent bare metal stent placement in his left anterior descending. He remains intubated at this point in time. Blood pressure is somewhat low, but I am hoping by lightening his sedation, this will improve a little bit. He is on fentanyl 75 and propofol 20 at this time. His blood gas shows some respiratory acidosis, so I increased his respiratory rate a little to compensate for that. He has no indication for any antibiotics. He is getting Plavix per Cardiology. Plan is to try to extubate him tomorrow morning. CRITICAL CARE TIME: 40 minutes.
[2016-11-06] MEDS ORDERED: Insulin Human REGular 300 Unit/3 mL Inj SUBQ SCH (14:30)
--- NOTE | 2016-11-06 15:55 | DRSVH ---
[facility] [address] [place] [address] Echocardiogram Report Name: JULIA LUNA JStudy Date: 11/06/2016 Height: 66 in Hospital Exam Location: [facility] Weight: 251 lb Gender: Male BSA: 2.2 m2 : 1950 Age: 66 yrs BP: 78/54 mmHg Reason For Study: CHEST PAIN, STEMI Ordering Physician: Performed By: Eli Villafana Referring Physician: Dr. Yumiko James Interpretation Summary The left ventricle is borderline dilated. There is akinesis along the apical wall and severe hypokinesis along the anteroseptal wall. There is mild to moderate hypokinesis along the anterior wall. Left ventricular systolic function is moderate to severely reduced. The ejection fraction is estimated to be 35-40%. LVEF has decreased since prior study. Assessment of diastolic parameters indicates a relaxation abnormality of the left ventricle, consistent with normal filling pressures. The right ventricle is normal size. Right ventricular systolic function is mildly reduced. Both atria are mildly dilated. There is no significant valvular heart disease. The aortic root is mildly dilated. Procedure: A two-dimensional transthoracic echocardiogram with color flow and Doppler was performed. Image quality is very poor. The patient is intubated. A contrast injection of Definity was performed to improve assessment of LV function. Contrast was injected into an intravenous site in the right arm. A total of 6 cc of contrast was given. Comparison is made with the echocardiogram of 03-03-2016. The patient was in normal sinus rhythm during the exam. Left Ventricle: The left ventricle is borderline dilated. Left ventricular wall thickness is mildly increased. Left ventricular systolic function is moderate to severely reduced. The ejection fraction is estimated to be 35- 40%. There is akinesis along the apical wall and severe hypokinesis along the anteroseptal wall. There is mild to moderate hypokinesis along the anterior wall. Assessment of diastolic parameters indicates a relaxation abnormality of the left ventricle, consistent with normal filling pressures. Right Ventricle: The right ventricle is normal size. Right ventricular systolic function is mildly reduced. Atria: Both atria are mildly dilated. There is no Doppler evidence for an atrial septal defect. Mitral Valve: The mitral valve is grossly normal. There is trace mitral regurgitation. Aortic Valve: The aortic valve is trileaflet. There is mild aortic valve sclerosis. The aortic valve opens well. No aortic regurgitation is present. Tricuspid Valve: The tricuspid valve is not well visualized. No tricuspid regurgitation. Pulmonic Valve: The pulmonic valve is not well visualized. There is no pulmonic valvular regurgitation. There is no significant valvular heart disease. Great Vessels: The aortic root is mildly dilated. The ascending aorta could not be visualized. The pulmonary is not well visualized. The IVC has a measurement of 20 mm. Inspiratory collapse cannot be assessed because of mechanical ventilation, thus CVP cannot be estimated.. Pericardium/ Pleura There is no pericardial effusion. There is no pleural effusion. MMode/2D Measurements & Calculations LVIDd: 5.6 cm LA dimension: 3.6 cm RA long axis: 4.6 cm LVOT diam LVIDs: 4.7 cm FS: 17.2 % LA A2 area: 25.7 cm RA area: 18.9 cm AoV Opening IVSd: 1.2 cm LA A4 area: 20.5 cm RA vol: 65.7 ml LVPWd: 1.3 cm LA length (vol): 6.2 cm RA : 29.5 ml/m Ao root diam LA vol: 72.3 ml RVDd major: 6.6 cm : 3.7 cm LA vol index: 32.5 ml/m IVC diam: 2.0 cm EDV(MOD-sp2) LV beauchamp. diameter/BSA LV sys. diameter/BSA RVD2 (mid) : 178.9 ml (cm/m^2): 2.5 (cm/m^2): 2.1 : 3.7 cm Doppler Measurements & Calculations Ao V2 max MV E max pierre MV E/A: 0.54 PA V2 max : 118.9 cm/sec : 48.9 cm/sec Med Peak E' Pierre : 87.4 cm/sec Ao max P.7 mmHg MV A max pierre PA mean P.7 mmHg Ao mean P.1 mmHg : 89.8 cm/sec E/E' med: 13.7 PA Accel Time LVOT Max Pierre Lat Peak E' Pierre : 0.13 sec : 82.8 cm/sec E/E' lat: 14.2 ZENAIDA(I,D): 2.7 cm E/e' average sev ratio: 0.63 Pulm A Revs Dur MV A dur : 0.12 sec Ao V2 mean LV V1 max PG PA V2 mean ZENAIDA indexed to BSA : 85.4 cm/sec : 62.5 cm/sec (cm^2/m^2): 1.2 Ao V2 VTI: 22.1 cm LV V1 VTI : 13.9 cm ZENAIDA(V,D): 3.0 cm2 Pulm A Revs Dur - MV A Dur: 0.03 msec Reading Physician:PM
--- NOTE | 2016-11-06 16:45 | NUR ---
P: Hypotension I: Pt received from the dental laboratory supervisor at 0830 this am. [id number]. Pt trying to sit up and extubate himself. construction laborer personnel holding pressure on right groin site. Propofol 30 mcqs/kg/min and fentanyl 75mcqs/hr. Dr. Park asked for sedation to be decreased and pt did not tolerate it and had to be held down in bed while boluses given of propofol and fentanyl. LR 500cc bolus x2 for hypotension. LR 120cc/hr and now changed to NS 100cc/hr. NSR. Cramer patent and drained yellow urine. Pulses 1+. Bilateral legs with scaly red and SCD's off for now. Groin checks done per protocol. Linen changed. Turned Q 2 hours. Oral care done Q4 hours. OGT LCS and draining yellow fluid. E: Stable S: Restraints on for pt safety. Frequent rounding.
[2016-11-07] VITALS (14 sets, daily range): BP systolic 95–144; BP diastolic 67–95; PULSE 98–118; RESP 18–22; O2SAT 94–98
--- NOTE | 2016-11-07 00:26 | CONS ---
[address] [address] CONSULTATION REPORT PATIENT: JULIA LUNA : 1950 MR#: [id number] ADMIT: 11/06/2016 JOB ID: [id number] CARDIOLOGY CONSULTATION: DATE OF SERVICE: 11/06/2016 CHIEF COMPLAINT: Chest pain. HISTORY OF PRESENT ILLNESS: The patient is a 66-year-old man with multiple ER visits (nine ER visits in the past one month) who presents with chest pain. The patient has a history of COPD, medication noncompliance, and multiple visits for chest discomfort. He has had multiple hospitalizations for non STEMI, in particular in August 2013 and August 2016. Cardiology was consulted to assist with management in the past, but management was deferred due to patient's belligerence. Unfortunately, patient came in with severe chest discomfort and [address] elevations in precordial leads with reciprocal changes. After a detailed discussion regarding the risks, benefits, and alternatives, patient agreed to proceed with intervention. Dr. Marin took the patient to the labour market economist. Due to patient's discomfort and psychiatric issues, per patient request, he was intubated and sedated by Anesthesiology Team. Patient underwent successful intervention to occluded mid LAD, and now he is recovering in the CCU and Cardiology is consulted to assist with management. PAST MEDICAL HISTORY: 1. Multiple hospitalizations for non STEMI. Abnormal focal wall motion abnormalities and elevated troponin T corroborated diagnosis in the past. Patient was belligerent towards several doctors, and as a result, he was managed medically. He has signed out against medical advice multiple times. 2. COPD, multiple exacerbations. 3. Influenza A in July 2016. 4. Paroxysmal Afib. 5. Chronic lung disease. 6. Venous insufficiency. 7. Hypertension. 8. Obesity. SOCIAL HISTORY: The patient is homeless. He is a former smoker. He quit nine years ago. FAMILY HISTORY: Reviewed and noncontributory. ALLERGIES: VANCOMYCIN. CURRENT MEDICATIONS: 1. Fentanyl 75 mcg/hour. 2. Propofol 20 mcg/kg per minute. 3. Aspirin. 4. Plavix. REVIEW OF SYSTEMS: Unable to obtain because patient is intubated and sedated. PHYSICAL EXAMINATION: Vital signs: Temperature afebrile. Blood pressure 85/61, pulse 84 beats per minute, satting 97% on 60% FiO2. General: Intubated and sedated man lying flat in bed in no apparent distress. Eyes: No scleral icterus. Heart: Normal S1, S2. No murmurs. Lungs: Clear to auscultation bilaterally. Abdomen: Soft with positive bowel sounds. Extremities: Warm, well perfused. No clubbing, cyanosis, or edema. Vascular exam shows the right common femoral artery vascular access site has mild oozing, but no bleeding. No ecchymosis and no bruits. EKG: ST elevation in precordial leads with biphasic T-wave in leads V4 and V5. LABS: Reviewed. Troponin T was most recently 0.39. Vent settings: He is on PEEP of 10, 40% FiO2, tidal volume 500 cc. ASSESSMENT AND PLAN: This is a complex situation of a 66-year-old man with medication noncompliance and belligerence. Now, we are faced with a problem where in the past he was aggressive towards staff, he was not interested in following instructions, and it is not clear how he will be able to comply with statin therapy and dual antiplatelet therapy. I have personally reviewed the cath films and I appreciate Dr. Marin's expertise. Patient was deliberately treated with bare metal stent to occluded proximal left anterior descending to minimize the duration of dual antiplatelet therapy. Of course, the patient has other disease that was not treated with stents for reasons outlined above, including 80% obtuse marginal, 70% mid circumflex, and 90% proximal right coronary artery. I think the HARD part will be to communicate with him effectively. I have reviewed notes from multiple doctors including psychiatrist, , and it is not going to be easy. While he is intubated and sedated, we have the luxury of administering dual antiplatelet therapy and at least making sure that he follows the activity level restrictions following intervention. Continue aspirin 81 mg daily, Plavix 75 mg daily. For now, he is sedated with propofol and fentanyl. Ideally, he would also benefit from beta gracie and statin therapy. Thank you for the opportunity to evaluate this patient. [facility] HOSPITAL[facility]y
[2016-11-07] MEDS: 0.9% Sodium Chloride 1,000 ML IV SCH ×2 (00:46→10:56)
[2016-11-07] MEDS: Propofol Inj 1,000,000 MCG in IV Premix 1 EACH IV SCH ×3 (03:17→21:24)
--- NOTE | 2016-11-07 04:26 | ABG ---
DateTimeAnalyzed 04:23:00 -_ pH ____7.354 - 7.350 7.450 pCO2 ___41.3__ -mmHg 35.0 45.0 pO2 ___70.8__ -mmHg 69.0 116 HCO3- ___22.4__ -mmol/L 22.0 26.0 ABE ___-2.4__ -mmol/L -2.0 2.0 tHb ___12.2__ -g/dL O2Hb ___92.6__ -% COHb ____1.1__ -% MetHb ____0.8__ -% sO2 ___94.4__ -% 25.0 FIO2 ___30.0__ -% PEEP ___10.0__ -cmH2O Set_RR ___18.0__ -b/min Vt __500.0__ -L Drawn By MK - Date/Time Notified____ 04:26:00 -_ Oxygen Device 1 VENTILATOR - B 758 -mmHg tO2 ___16.0__ -Vol% Collin test _Positive -
[2016-11-07 05:24] LABS: BASOPHILS % (AUTO) 0.4 % (0-3); EOSINOPHILS % (AUTO) 3.1 % (0-5); MONOCYTES % (AUTO) 9.8 % (4-12); Mean Corpuscular Hemoglobin 27.9 pg (27.0-35.0); Mean Corpuscular Volume 86.5 fL (81-100); NEUTROPHILS % (AUTO) 78.3 % (40-74); Platelet Count 195 bil/L (150-400)
[2016-11-07 05:58] LABS: Magnesium 1.4 mg/dL (1.6-2.6)
--- NOTE | 2016-11-07 06:23 | NUR ---
Respiratory Pt on vent support with fio2 0.40, desats to 85% after turns/repositioning, takes at least 20-25 mins to recoup with o2sats to 92-93%, RASS -3 resting, +1 with activity, remains on propofol and fentanyl gtts; BP stable throughout the shift. bilateral soft wrist restraints on.
[2016-11-07 06:39] LABS: TROPONIN T 1.25 ug/L (0.0-0.011)
[2016-11-07] MEDS ORDERED: Magnesium Sulf 2 Gm/50mL Water 2 GM in IV Premix 1 EACH IV ONE (07:55)
[2016-11-07] MEDS ORDERED: Levalbuterol 0.63 mg/3 mL Inhalation Solution ONE (08:40)
[2016-11-07] MEDS ORDERED: Levalbuterol 0.63 mg/3 mL Inhalation Solution NEB ONE (08:42)
[2016-11-07] MEDS: Ipratropium 0.02% 0.5 mg/2.5 mL Inhalation Solution NEB SCH ×3 (08:43→20:34)
[2016-11-07] MEDS ORDERED: Furosemide 10 mg/mL 2 mL Inj IVPUSH ONE (10:20)
[2016-11-07] MEDS ORDERED: MethylprednisoLONE Sodium Succinate 40 mg/mL Inj IVPUSH ONE (10:20)
--- NOTE | 2016-11-07 11:23 | DRSVH ---
PROCEDURE: X-RAY CHEST ONE VIEW, PORTABLE ([id number]) INDICATIONS: intubated on ventilator TECHNIQUE: One view of the chest was acquired. COMPARISON: [facility], CR, XR CHEST 1VW (PORTABLE), 11/06/2016, 8:51. FINDINGS: Surgical changes and devices: Endotracheal tube is similar in position compared to prior study with t he tip approximately 7 cm from the manuel. Nasogastric tube is redemonstrated extending to the stoma ch the Lungs and pleura: No pleural effusions or pneumothorax. There are mild linear opacities in the lung bases likely representing atelectasis. Mediastinum: Mediastinal contours appear unchanged. Heart size is normal. Bones and chest wall: No suspicious bony lesions. Overlying soft tissues appear unremarkable. IMPRESSION: 1. No definite change in cardiopulmonary status. Dictated by: Jimmy Toledo M.D. on 11/07/2016 at 11:15 Approved by: Jimmy Toledo M.D. on 11/07/2016 at 11:17
--- NOTE | 2016-11-07 11:45 | PROG NOTE ---
[address] [address] PROGRESS NOTE PATIENT: JULIA LUNA : 1950 MR#: [id number] ADMIT: 11/06/2016 JOB ID: [id number] CARDIOLOGY PROGRESS NOTE--FOLLOW UP INPATIENT VISIT: DATE: Monday, November 07, 2016. CONSULTING PHYSICIAN: Cardiology--Kyler Marin M.D. PROBLEMS: 1. Acute coronary syndrome: a. STEMI--acute anterior myocardial infarction on Sunday, November 06, 2016. b. PCI (percutaneous coronary intervention)--BMS of occluded proximal LAD culprit lesion. c. Cardiomyopathy--ischemic cardiomyopathy with [id number] LV dysfunction with ejection fraction about 35%; and possible underlying chronic cardiomyopathy as well. 2. Intubated on ventilator: a. Intubated for sedation for procedure because of extreme behavioral problems and patient's request. b. Chronic severe behavioral problems have precluded any medical care up to this point. HOSPITAL DAY TWO: SUBJECTIVE: HOSPITAL COURSE AND PROGRESS: This 66-year-old man presented yesterday to the emergency department with severe chest discomfort and EKG indicative of anterior myocardial infarction. He was taken to the catheterization laboratory after substantial delay related to his behavioral issues; but ultimately he elected to go ahead because of his severe pain; and he requested management even to the point of sedation and intubation to make this possible. He has a long history of behavioral problems that have precluded adequate medical care for his clinically diagnosed coronary disease. In the past 24 hours since admission, he has been stable from a cardiac point of view. He was initially somewhat hypotensive which is now resolving and was attributed likely to multiple medications including sedation that was needed. The focus of his ongoing medical care now relates to critical care support for his intubated status with a goal of extubation. OBJECTIVE/EXAMINATION: VITAL SIGNS: Stable with current blood pressure 144/95 with heart rate 127 in sinus rhythm on telemetry. SpO2 96% on 40% FiO2 on the ventilator. He remains sedated. HEART AND LUNGS: Current examination limited by his obesity and distant heart sounds but otherwise unremarkable. The lungs are relatively clear. EXTREMITIES: The right lower extremity is intact at the RFA access site and perfusion is intact distally with no palpable pulses as on admission. ECG : The current ECG shows some resolution of the initial ST elevation but there is residual anterior ST elevation that may relate to his chronic disease, his late presentation and the possibility of LV apical aneurysm. There are Q-waves in V1-V4 consistent with anterior VA. LABORATORY: He had good urine output overnight. Laboratory results not available in the computer. On review they were largely intact with stable creatinine and his total CK was not markedly elevated as a marker of the size of his overall infarction. ECHOCARDIOGRAM: I reviewed the echocardiogram images done yesterday. The study is severely limited. He has diffuse hypokinesia that raises the question of a pre-existing cardiomyopathy, ischemic or otherwise. He has also apparent large anterior apical wall motion defect consistent with his current VA. Overall ejection fraction estimated 35%-40%; but visually to my eye his EF may be 30%-35%. ASSESSMENT: 1. ACS with anterior VA and revascularization of culprit proximal LAD occlusion with a bare metal stent. From a Cardiology and coronary point of view, he appears stable post catheterization. In the long run, he will benefit from optimal medical therapy including for his cardiomyopathy which appears substantial. We will need to assess him as he recuperates to evaluate the degree and clinical sequelae and symptoms related to his cardiomyopathy. So far, he seems relatively stable clinically. 2. Intubated: He is currently under the care of a critical care team and pulmonary for his intubated status and to move towards extubation. 3. Behavioral issues: His behavioral issues have been limiting the medical care and life threatening to him. Would agree with aggressive approach including formal psychiatric evaluation and all efforts to approach this issue prior to him being alert and extubated. 4. From a Cardiology point of view, the biggest concern is that aspirin and Plavix dual antiplatelet therapy is mandatory for him and the likelihood of stent thrombosis with life's threatening or fatal sequelae is likely in the near term. Plavix is indicated for 30 days. RECOMMENDATIONS: 1. Critical care support and anticipated extubation. 2. Plan for approach to behavioral issues including early formal psychiatry consultation. 3. OMT--guideline directed optimal medical therapy for his coronary disease; for underlying risk factor management; and progressively for his cardiomyopathy.
[2016-11-07] MEDS ORDERED: Furosemide 10 mg/mL 4 mL Inj IVPUSH ONE (12:15)
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
[2016-11-07] MEDS: Albuterol 2.5 mg/3 mL Inhalation Solution NEB PRN ×3 (13:11→20:34)
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
--- NOTE | 2016-11-07 15:23 | PCM.PNMED ---
Subjective Date of Service Nov 07, 2016 Subjective overnight: No acute events overnight. Patient desaturates to 85% with repositioning and takes several minutes to improve his stats into the 90s Today: Patient was initially tried on a pressure support trial of 10/8 which was eventually converted to 8 over 8 however the patient became significantly more tachycardic with heart rates up to 125. Physical exam at that time showed decreased air movement on the pressure support trial was discontinued at this time. The patient was given nebulizer treatments with racemic albuterol as well as ipratropium with improved air movement after therapy. The patient was then tried on another pressure support trial at 5 over 5 however subsequently failed. During his pressure support trials sedation was weaned and the patient communicated some displeasure with hospital staff by gesturing with his middle finger. Exam Vital Signs Vital Sign - Last Date Time Temp Pulse Resp B/P Pulse Ox O2 Delivery O2 Flow Rate FiO2 11/07/16 04:28 106 99/68 95 30 11/07/16 04:12 37.3 18 Mechanical Ventilator 11/06/16 04:58 5 Intake and Output 11/06/16 11/06/16 11/07/16 Cumulative From/Thru 15:00 23:00 07:00 11/06/16 01:25 - 11/07/16 05:43 Intake Total 2136 ml 1584 ml 4020 ml Output Total 750 ml 625 ml 1625 ml Balance 1386 ml 959 ml 2395 ml Intake Oral 300 ml IV Total 2136 ml 1584 ml 3720 ml Output Urine Total 700 ml 375 ml 1325 ml Gastric Drainage Total 50 ml 250 ml 300 ml # Bowel Movements 0 0 Exam General: Obese disheveled man appearing older than stated age, Intubated and mildly sedated, lying in hospital bed. Eyes: PERRLA, anicteric sclera, noninjected conjunctiva HEENT: Normocephalic, atraumatic. External ears without defect. ET tube in place Neck: Trachea midline, No jugular venous distension. Cardiovascular: Regular rate and rhythm with no murmurs appreciated Pulmonary: Substantially decreased air movement in all lung marlow, however clear to auscultation bilaterally with no crackles, wheezes,. Abdomen: Soft to palpation, nondistended, no organomegaly noted, large umbilical hernia noted likely 20cm Extremities: Lower extremity bilateral erythema and induration and bilateral llanos excoriations . No edema. Left and Right AC line in place. Right femoral cath insertion site non erythematous no active bleeding. onychomycosis bilaterally in LE Neuro: unable to assess intubated and sedated not following commands Psychiatric: unable to assess intubated and sedated not following commands Lab and Diagnostics Result Diagram: 11/07/1642911/07/16429 X-Rays, CTs and MRIs PROCEDURE: X-RAY CHEST ONE VIEW, PORTABLE ([id number]) IMPRESSION: 1. New endotracheal tube tip approximately 5.5 cm from the manuel. 2. Linear medial opacities compatible with atelectasis or aspiration. 3. Probable mild edema. Dictated by: Jimmy Toledo M.D. on 11/06/2016 at 9:21 Approved by: Jimmy Toledo M.D. on 11/06/2016 at 9:31 12-lead ECG -ECG showed ST elevation in anterior leads V2-V4, repeat ECG showed ST elevation progression with rising troponin levels Additional Diagnostics DIAGNOSTIC CARDIAC CATHETERIZATION FINDINGS: 1. LMCA: The left main coronary artery is intact. 2. LAD: The left anterior descending coronary artery is heavily calcified and initially occluded proximally at the small first septal. When opened, it is a medium-sized transapical vessel with severe diffuse disease in the proximal and mid portions. 3. LCX: The left circumflex coronary artery is a medium-sized vessel. The first OM is a medium-sized branching vessel with 80% lesions. The second OM is a medium-sized vessel with a 70% tubular proximal narrowing. Thereafter the mid LCX is a medium-sized vessel with a 70% proximal lesion. 4. RCA: Dominant. A 90% tubular proximal lesion. The right coronary artery is a large vessel with a large PDA and a large RPLB. 5. LHC: LVED of 20 mmHg; and no systolic gradient across the aortic valve on pullback. Systolic blood pressure 100. CONCLUSIONS: 1. PCI of proximal occluded LAD--Vision BMS--2.5 x 23 mm post dilated to 2.75 mm. 2. ACS--anterior ND with culprit occluded proximal LAD. 3. Coronary artery disease (CAD)--three-vessel disease including occluded proximal LAD; 80% OM 1, 70% mid LCX; and 90% proximal RCA. Kyler Marin MD 11/06/16 [id number] [facility] DateTimeAnalyzed 04:23:00 -_ pH ____7.354 - 7.350 7.450 pCO2 ___41.3__ -mmHg 35.0 45.0 pO2 ___70.8__ -mmHg 69.0 116 HCO3- ___22.4__ -mmol/L 22.0 26.0 Assessment & Plan 66 gentleman with PMH CAD, HTN, CHF, HLD and history of non compliance with multiple AMA discharges admitted for STEMI with stent placement to LAD. Pt is unable to lay down at baseline secondary to his chronic lung disease and would only agree to catheterization if he was sedated. 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 Hospital Day 2, ventilator day 2. 1. STEMI s/p stent placement to LAD. Present on admission. Presumed stable -ECG showed ST elevation in anterior leads V2-V4, repeat ECG showed ST elevation progression with rising troponin levels -Aspirin loading dose 325 received. Continue daily ASA 81mg -Clopidogrel 75mg daily -Hold home medications; lisinopril 5mg daily, Amilodipine 5mg daily, isosorbide mononitrate ER 30mg daily. -Consider restarting lisinopril when hemodynamic state improves (BP currently 88 /68 and HR 80) -Hold home Metoprolol Tartrate 75mg BID. Consider restarting when hemodynamic state improves starting at 12.5mg BID -Repeat EKG in a.m. -Start Atorvastatin 40mg daily -Compliance will be an barrier for this Pt - recommend minimal outpatient discharge medications 2. acute on chronic orthopnea, present on admission - Pt would only agree to heart catheterization if he was sedated secondary to his inability to lay flat - Ventilator settings are FiO2 0.4, TV 500, PEEP 10, RR 16 - Propofol 20mcg/kg/hr - Fentanyl 50mcg/kg/hr - nursing advised to limit sedation to lowest - CXR in am 3. Chronic Obstructive Pulmonary Disease, present on admission - only mild intermittent wheezing noted on admission physical - Continue home albuterol when necessary and ipratropium nebulizer scheduled - Patient given a single dose of levalbuterol due to tachycardia at initial pressure support trial - Solu-Medrol 40 mg IV every 8 - Patient failed initial breathing trial on 11/07/2016 due to tachypnea and tachycardia. Patient treated with steroids, nebulizers, and Lasix given history of COPD and CHF. 4. Systolic and Diastolic Congestive Heart Failure, present on admission. Ongoing - prior echo 03/03/2016 showed no significant change from previous, possibly some hypokinesis - Echo results pending - Discontinue IV fluids - Lasix 20 mg given patient will likely require another dose of 5. chronic Diabetes Mellitus type 2, present on admission. Ongoing - Blood Glucose 292 on admission - Hemoglobin A1C 10.3 - patient is noncompliant with outpatient medications and previous requests to start insulin the patient is prescribed Glipizide - High dose correctional scale insulin - Consider addition of basilar insulin 6. Chronic respiratory failure, present on admission, stable - on 2-3L Oxygen in car - patient will be likely transition to BiPAP after extubation within the next several days - Patient will likely want to leave the hospital AMA if placed on BiPAP, this concern will need to be addressed prior to extubation 7. chronic Hypertension. Present on admission, stable - Hold home meds as in #1. 8. Chronic hyperlipidemia, present on admission, presumed stable - treated as above 9. chronic depression, present on admission, stable - Held Pt's home Sertraline 10. Tobacco dependence, chronic, present on admission - nicotine patch available on request 11. chronic Obesity, present on admission, presumed stable - recommend weight loss 12. Chronic venous insufficiency, present on admission, stable - monitor for signs of infection as the patient also has chronic cellulitis 13. Paroxysmal atrial tachycardia/atrial fibrillation, chronic, not present on admission - rate control with Metoprolol as above DVT prophylaxis: Heparin subcutaneous GI: Ranitidine Antiemetics available PRN Bowel Regime available PRN Code status : Full at this time Disposition: Patient is likely to remain inpatient for several more days will need to be discharged to cardiac rehabilitation. Patient is notoriously noncompliant and homeless and will likely require some social support to make sure he takes his Plavix even for the minimal amount of time. Pain Evaluation: Adequate Pain Control VTE Prophylaxis: Sub-Q Heparin (Unfractionated) Resuscitation Status: CPR: Attempt Resuscitation Attending Statement The patient was seen and examined together with Dr. Ho on 11/07/2016 and I agree with the history, exam and plan as outlined in the note above. . Kenrick Ho DO Nov 07, 2016 07:25 Mariano Porter MD Nov 08, 2016 08:32
[2016-11-07] MEDS: MethylprednisoLONE Sodium Succinate 40 mg/mL Inj IVPUSH SCH (16:30)
[2016-11-07] MEDS: fentaNYL 2,500 mCg/250 mL 2,500 MCG in IV Premix 1 EACH IV SCH (18:00)
[2016-11-07 19:04] LABS: Magnesium 1.9 mg/dL (1.6-2.6)
[2016-11-07] MEDS: Insulin Human REGular 300 Unit/3 mL Inj SUBQ SCH (23:20)
[2016-11-08] VITALS (14 sets, daily range): BP systolic 96–137; BP diastolic 30–93; PULSE 84–112; RESP 18–26; O2SAT 91–97
[2016-11-08] MEDS: MethylprednisoLONE Sodium Succinate 40 mg/mL Inj IVPUSH SCH ×3 (01:08→16:30)
[2016-11-08] MEDS: Chlorhexidine 0.12% 15 mL Oral Solution MT SCH ×6 (01:08→20:23)
[2016-11-08] MEDS: Heparin 5,000 Unit/mL Inj SUBQ SCH ×3 (01:08→16:30)
[2016-11-08] MEDS: Propofol Inj 1,000,000 MCG in IV Premix 1 EACH IV SCH ×3 (01:36→21:37)
[2016-11-08] MEDS: Insulin Human REGular 300 Unit/3 mL Inj SUBQ SCH ×6 (02:20→20:27)
[2016-11-08] MEDS ORDERED: Insulin GLARgine 100 Unit/mL Syringe SUBQ ONE (02:50)
[2016-11-08] MEDS: 0.9% Sodium Chloride 1,000 ML IV SCH ×3 (03:53→23:55)
[2016-11-08 04:47] LABS: BASOPHILS % (AUTO) 0.1 % (0-3); EOSINOPHILS % (AUTO) 0 % (0-5); MONOCYTES % (AUTO) 3.2 % (4-12); Mean Corpuscular Hemoglobin 28.4 pg (27.0-35.0); Mean Corpuscular Volume 83.8 fL (81-100); NEUTROPHILS % (AUTO) 93.2 % (40-74); Platelet Count 200 bil/L (150-400)
[2016-11-08] MEDS: Ipratropium 0.02% 0.5 mg/2.5 mL Inhalation Solution NEB SCH ×4 (05:26→20:19)
[2016-11-08] MEDS: Albuterol 2.5 mg/3 mL Inhalation Solution NEB PRN ×4 (05:26→20:19)
[2016-11-08 05:48] LABS: Magnesium 1.9 mg/dL (1.6-2.6); Phosphorus 4.1 mg/dL (2.5-4.9)
[2016-11-08 06:07] LABS: TROPONIN T 0.921 ug/L (0.0-0.011)
--- NOTE | 2016-11-08 07:34 | NUR ---
P) Cardiac/respiratory/skin Pt. intermittently agitated, pulling at restraints, lungs with moderately coarse breath sounds bilat, rales and inspiratory squeaks, more in the R lung than the left. Thick, white to yellow phlegm suctioned from ET tube frequently. Cardiac rhythm sinus/sinus tach with a slight IVCD, very occasional PVC. Skin with multiple bruises, and red, macerated rash in R panis fold, legs with scaling, PVD color changes and abrasions vs. severe PVD scaling bilat. I) Meds per 's orders, complete bath given with cream applied to legs and wrapped in pillow case prior to applying SCD's, turning q2h and floating heels, heels are mushy but new and feet and toes also scaly, cream applied, medication requested for panis rash. E) Resting more quietly but still agitated on waking.
--- NOTE | 2016-11-08 07:39 | DRSVH ---
PROCEDURE: X-RAY CHEST ONE VIEW, PORTABLE ([id number]) INDICATIONS: possible aspiration pneumonia TECHNIQUE: One view of the chest was acquired. COMPARISON: [facility], CR, XR CHEST 1VW (PORTABLE), 11/07/2016, 4:46. [facility], CR, XR CHEST 1VW (PORTABLE), 11/06/2016, 8:51. FINDINGS: Surgical changes and devices: An ETT is present, tip of which is roughly 5 cm above the manuel. Lungs and pleura: No pleural effusions or pneumothorax. Mild patchy bibasilar airspace opacity. Mediastinum: Mediastinal contours appear normal. Heart size is normal. Bones and chest wall: No suspicious bony lesions. Overlying soft tissues appear unremarkable. IMPRESSION: Bibasilar atelectasis versus pneumonia. Dictated by: Fidel Moran M.D. on 11/08/2016 at 7:33 Approved by: Fidel Moran M.D. on 11/08/2016 at 7:37
--- NOTE | 2016-11-08 07:47 | PCM.PNMED ---
Subjective Date of Service Nov 08, 2016 Subjective Patient intubated and sedated so no ROS could be obtained. Overnight, patient had a high blood glucose measurement. Lantus 10 units given. Patient also received a bath. Exam Vital Signs Vital Sign - Last Date Time Temp Pulse Resp B/P Pulse Ox O2 Delivery O2 Flow Rate FiO2 11/08/16 05:26 86 107/74 92 40 11/08/16 00:00 38.0 20 Mechanical Ventilator 11/06/16 04:58 5 Intake and Output 11/07/16 11/07/16 11/08/16 Cumulative From/Thru 15:00 23:00 07:00 11/06/16 01:25 - 11/07/16 17:00 Intake Total 850 ml 4870 ml Output Total 3000 ml 4625 ml Balance -2150 ml 245 ml Intake Oral 300 ml IV Total 850 ml 4570 ml Output Urine Total 2800 ml 4125 ml Gastric Drainage Total 200 ml 500 ml # Bowel Movements 0 0 Exam General: Obese man appearing older than stated age, intubated and sedated in the ICU Eyes: PERRLA, anicteric sclera, noninjected conjunctiva HEENT: Normocephalic, atraumatic. External ears without defect. ET tube in place. No oral thrush appreciated. Neck: Trachea midline, No jugular venous distension. Supple, nontender, no thyromegaly appreciated. Cardiovascular: Regular rate and rhythm with no murmurs appreciated. Pulmonary: Substantially decreased air movement in all lung marlow, however clear to auscultation bilaterally with no crackles, wheezes. Abdomen: Soft to palpation, nondistended, no organomegaly noted, large umbilical hernia noted likely 20cm, hypoactive bowel tones. Extremities: Lower extremity bilateral erythema and induration and bilateral llanos excoriations. No edema. Left and Right AC line in place. Right femoral cath insertion site non erythematous, no active bleeding, no apparent hematoma, soft to palpation. Onychomycosis bilateral feet. Skin: Yeast noted in the folds below the abdomen. Cramer catheter in place (day 3) Ventilator settings: FiO2 .40, PEEP 8, Rate 18, TV 500. IVs and Medications Medications Reviewed: Medications were reviewed in detail Lab and Diagnostics Result Diagram: 11/08/16 0415 11/08/16414 X-Rays, CTs and MRIs X-RAY CHEST ONE VIEW, PORTABLE IMPRESSION: 1. New endotracheal tube tip approximately 5.5 cm from the manuel. 2. Linear medial opacities compatible with atelectasis or aspiration. 3. Probable mild edema. Dictated and approved by: Jimmy Toledo M.D. on 11/06/2016 at 9:21 . Additional Diagnostics DIAGNOSTIC CARDIAC CATHETERIZATION FINDINGS: 1. LMCA: The left main coronary artery is intact. 2. LAD: The left anterior descending coronary artery is heavily calcified and initially occluded proximally at the small first septal. When opened, it is a medium-sized transapical vessel with severe diffuse disease in the proximal and mid portions. 3. LCX: The left circumflex coronary artery is a medium-sized vessel. The first OM is a medium-sized branching vessel with 80% lesions. The second OM is a medium-sized vessel with a 70% tubular proximal narrowing. Thereafter the mid LCX is a medium-sized vessel with a 70% proximal lesion. 4. RCA: Dominant. A 90% tubular proximal lesion. The right coronary artery is a large vessel with a large PDA and a large RPLB. 5. LHC: LVED of 20 mmHg; and no systolic gradient across the aortic valve on pullback. Systolic blood pressure 100. CONCLUSIONS: 1. PCI of proximal occluded LAD--Vision BMS--2.5 x 23 mm post dilated to 2.75 mm. 2. ACS--anterior TX with culprit occluded proximal LAD. 3. Coronary artery disease (CAD)--three-vessel disease including occluded proximal LAD; 80% OM 1, 70% mid LCX; and 90% proximal RCA. Kyler Marin MD 11/06/16 0857 . Assessment & Plan Vincent High is a 66 gentleman with past medical history significant for coronary artery disease, hypertension, congestive heart failure, dyslipidemia, and history of non compliance with multiple AGAINST MEDICAL ADVICE discharges admitted for STEMI with stent placement to left anterior descending coronary artery. Patient is unable to lay down at baseline secondary to his chronic lung disease and would only agree to catheterization if he was sedated. Patient intubated and sedated for rn cardiac cath and admitted to ICU for ventilation management. Hospital Day 3, ventilator day 3. 1. STEMI s/p stent placement to LAD. Present on admission. Presumed stable - Continue daily ASA 81mg and Plavix 75 mg daily. Continue atorvastatin 40 mg daily. - Hold home medications as blood pressure continues to be labile. These include : lisinopril 5mg daily, Amilodipine 5mg daily, isosorbide mononitrate ER 30mg daily, metoprolol tartrate 75 mg BID. Consider re-starting slowly. - Cardiology continues to follow the patient and we appreciate their recommendations. - Compliance will be a barrier for this patient - recommend minimal outpatient discharge medications. 2. Acute on chronic orthopnea, present on admission - Required mechanical ventilation to tolerate cardiac catheterization secondary to his inability to be cooperative while he lay flat. - Fentanyl and propofol for sedation. Plan for sedation vacation today. - Continued mechanical ventilation. Will plan for SBT daily until appropriate for extubation. 3. Chronic Obstructive Pulmonary Disease with chronic respiratory failure, present on admission. - Did not appear to be exacerbated at time of admission. Patient uses 2-3 L supplemental O2 in his car. - Anticipate extubation to BiPAP. - Continue albuterol neb Q4 PRN and ipratropium Q6 scheduled. - Continue Solu-Medrol 40 mg IV Q8 with plans to decrease tomorrow to Q12 and continue to taper from there. - Continued mechanical ventilation. Will plan for SBT daily until appropriate for extubation. 4. Systolic and Diastolic Congestive Heart Failure, present on admission. Ongoing - Patient did not appear to be decompensated at time of admission. - Echo done during this admission showed EF 35-40% which is decreased from prior study. - IV fluids to be TKO. - Lasix given x1. Will monitor closely today for need for additional dosing. 5. Chronic Diabetes Mellitus type 2, present on admission. Ongoing - Hemoglobin A1C 10.3 this admission. - Continue high dose correction scale of regular insulin while patient NPO. - Lantus 10 units HS added overnight. Will plan to continue this and possibly increase based on the day's blood glucose. 6. Paroxysmal atrial tachycardia/atrial fibrillation, chronic, not present on admission. - Plan for rate control with metoprolol. Will not restart at this time as blood pressure still labile. 7. Chronic Hypertension, present on admission, stable. - Patient has been hypotensive and low normotensive during admission. - Hold home meds as in #1. 8. Chronic hyperlipidemia, present on admission, presumed stable - Continue atorvastatin. 9. Chronic depression, present on admission, stable. - Continue sertraline 25 mg daily. 10. Tobacco dependence, chronic, present on admission - Nicotine patch available PRN. 11. Chronic obesity, present on admission, presumed stable. - Recommend weight loss with lifestyle changes. 12. Chronic venous insufficiency, present on admission, stable. - Monitor for signs of infection as the patient also has chronic cellulitis. - Antiemetics available PRN. - Bowel Regimen available PRN. - Nystatin powder available PRN. Disposition: Patient is likely to remain inpatient for several more days will need to be discharged with plans for cardiac rehabilitation. Patient is notoriously noncompliant and homeless and will likely require some social support to make sure he takes his Plavix even for the minimal amount of time. Pain Evaluation: Adequate Pain Control GI Prophylaxis: H2 gracie VTE Prophylaxis: Sub-Q Heparin (Unfractionated), SCDs Resuscitation Status: CPR: Attempt Resuscitation Attending Statement The patient was seen and examined together with Dr. Abel on 11/08/2016 and I agree with the history, exam and plan as outlined in the note above. . Meg Abel DO Nov 08, 2016 07:13 Mariano Porter MD Nov 08, 2016 15:54
--- NOTE | 2016-11-08 08:06 | NUR ---
Bedside Ue=[id number]; total 4u SS coverage admin.
[2016-11-08] MEDS: Polyethylene Glycol (PEG) 17 Gm Powder PO PRN (08:17)
[2016-11-08] MEDS: Nystatin 100,000 Unit/Gm 15 Gm Powder TOPICAL SCH ×2 (08:43→20:24)
--- NOTE | 2016-11-08 13:00 | NUR ---
Sedation reduction/SBT x30min SBT x30min with improved pt tolerance today; reduced Propofol @ 15-20mcg/kg/min & Fentanyl @ 20mcg/hr starting 30min prior to SBT. Pt restless, purposefully shaking head, pulling against restraints, shaking fists at staff & kicking legs and feet towards staff when repositioned.
[2016-11-08] MEDS: fentaNYL 2,500 mCg/250 mL 2,500 MCG in IV Premix 1 EACH IV SCH (14:05)
[2016-11-08] MEDS ORDERED: 0.9% Sodium Chloride 250 ML ONE (14:09)
[2016-11-08 16:33] LABS: APPEARANCE,URINE CLEAR (CLEAR,HAZY); COLOR,URINE YELLOW (YELLOW); OCCULT BLOOD,URINE NEGATIVE (NEGATIVE); PH,URINE 5.5 (5.0-8.0)
[2016-11-08 16:34] LABS: UROBILINOGEN,URINE NORMAL (NORMAL)
--- NOTE | 2016-11-08 18:22 | PROG NOTE ---
[address] [address] PROGRESS NOTE PATIENT: JULIA LUNA : 1950 MR#: [id number] ADMIT: 11/06/2016 JOB ID: [id number] DATE: 11/08/2016 CARDIOLOGY CONSULTATION PROGRESS NOTE--FOLLOWUP INPATIENT VISIT: DATE OF EVALUATION: Tuesday, November 08, 2016. CONSULTING PHYSICIAN: Cardiology--Kyler Marin MD. PROBLEMS: 1. Acute coronary syndrome: a. Acute anterior WA--Sunday, November 06, 2016. b. Coronary artery disease--three-vessel disease. c. Ischemic cardiomyopathy--moderate to severe reduction of LV ejection fraction 30% to 40%. 2. Intubated on ventilator. a. Intubated to allow catheterization procedure initially. b. Slow to extubate. c. COPD, severe chronic underlying respiratory insufficiency. 3. Behavioral issues. HOSPITAL COURSE AND PROGRESS: I saw this 66-year-old man on Cardiology rounds today, Tuesday, November 08, 2016. I discussed his status, progress, and ongoing management considerations with the hospitalist team and with the nursing staff. He remains sedated, intubated, and on the ventilator today with plans to pursue further efforts at weaning and extubation tomorrow. He did not do well on a spontaneous breathing trial yesterday and became tachycardic and tachypneic. There was a question of possible heart failure and pulmonary congestion contributing to his respiratory insufficiency--primarily because of his moderate to severe reduction in left ventricular ejection fraction; as well as borderline pulmonary venous hypertension on a chest x-ray. Over the past 24 hours, he received Lasix and diuresed nearly 2 L net. Otherwise, he appears to be neurologically intact when sedation is lightened; but his behavioral problems become immediately evident; and he is reported to be belligerent and threatening even while intubated. OBJECTIVE/EXAMINATION: Vital signs: Blood pressure 96/66 with heart rate 84 and regular, in sinus rhythm on telemetry. Pulse oximeter 96% on FiO2 that is still 40%. General appearance: He is sedated and unresponsive when I saw him. Heart and lungs: Again physical examination is notable for distant heart sounds, distant breath sounds and otherwise unremarkable. It is difficult to assess his volume status and for heart failure on physical examination, but he does not appear overtly fluid overloaded or in heart failure and there was mild edema. CHEST X-RAY: Chest x-ray today looks somewhat improved from yesterday regarding possible pulmonary venous hypertension which is at best borderline. There is cardiomegaly and there is evident underlying parenchymal pulmonary disease consistent with COPD. LABORATORY: His labs are overall intact today with potassium 5.1, creatinine 0.72, glucose somewhat better controlled, 240, compared to initially. Note that his total CK was only 394. Note, TSH is low at 0.340. ASSESSMENT: 1. Acute coronary syndrome with acute anterior myocardial infarction due to culprit occluded proximal left anterior descending, revascularized with bare-metal stent: From a coronary point of view, he is stable. The most important consideration ongoing is to try to assure he takes Plavix for a month; and that he benefits from other guideline-directed medical therapy including statin, beta-gracie and CHERI inhibitor and aspirin. 2. Query heart failure: He has ischemic cardiomyopathy and the echo suggested diffuse wall motion defects that raise a question of an underlying pre-existing diffuse cardiomyopathy as well. Because of his poor LV function, a question of heart failure has been entertained and he has been treated empirically with solid diuresis. From this point of view, would continue to maintain some mild net diuresis. Note his weights of come down from 113 kg to 107 kg from admission. 3. Ventilated and underlying COPD: He required intubation to proceed safely with the laboratory supervisor procedure. However, it has exposed his underlying lack of pulmonary reserve in the face of his known severe COPD (O2 dependent in his car where he lives). RECOMMENDATIONS: 1. Continue to keep net fluid balance stable or slightly diuresed. 2. BNP. 3. Repeat TSH; and free T4. 4. Recommend early Psychiatry consultation and question if there is any medication treatment or other treatment that can help assure good medical care for him.
[2016-11-08] MEDS: Insulin GLARgine 100 Unit/mL Syringe SUBQ SCH (20:27)
[2016-11-09] VITALS (18 sets, daily range): BP systolic 103–135; BP diastolic 69–91; PULSE 83–138; RESP 18–30; O2SAT 89–98
[2016-11-09] MEDS: Chlorhexidine 0.12% 15 mL Oral Solution MT SCH ×6 (00:21→19:52)
[2016-11-09] MEDS: Heparin 5,000 Unit/mL Inj SUBQ SCH ×4 (00:22→23:57)
[2016-11-09] MEDS: MethylprednisoLONE Sodium Succinate 40 mg/mL Inj IVPUSH SCH ×2 (00:22→07:31)
[2016-11-09] MEDS: Propofol Inj 1,000,000 MCG in IV Premix 1 EACH IV SCH ×2 (01:20→05:38)
[2016-11-09] MEDS: Insulin Human REGular 300 Unit/3 mL Inj SUBQ SCH ×5 (02:59→20:55)
[2016-11-09] MEDS: Albuterol 2.5 mg/3 mL Inhalation Solution NEB PRN ×2 (03:03→12:56)
[2016-11-09] MEDS: Ipratropium 0.02% 0.5 mg/2.5 mL Inhalation Solution NEB SCH ×2 (03:03→08:01)
--- NOTE | 2016-11-09 04:23 | ABG ---
DateTimeAnalyzed 04:19:00 -_ pH ____7.393 - 7.350 7.450 pCO2 ___45.4__ -mmHg 35.0 45.0 pO2 ___75.0__ -mmHg 69.0 116 HCO3- ___27.1__ -mmol/L 22.0 26.0 ABE ____2.2__ -mmol/L -2.0 2.0 tHb ___13.0__ -g/dL O2Hb ___94.1__ -% COHb ____0.9__ -% MetHb ____0.8__ -% sO2 ___95.7__ -% 25.0 FIO2 ___40.0__ -% PEEP ____5.0__ -cmH2O Set_RR ___18.0__ -b/min Vt __500.0__ -L Drawn By cf - Oxygen Device 1 VENTILATOR - Notified By cf - Notified Whom ___Dr. Abel - B 754 -mmHg tO2 ___17.3__ -Vol% Collin test _Positive -
[2016-11-09 04:24] LABS: BASOPHILS % (AUTO) 0 % (0-3); EOSINOPHILS % (AUTO) 0 % (0-5); MONOCYTES % (AUTO) 4.6 % (4-12); Mean Corpuscular Hemoglobin 27.9 pg (27.0-35.0); Mean Corpuscular Volume 84.3 fL (81-100); NEUTROPHILS % (AUTO) 92.1 % (40-74); Platelet Count 223 bil/L (150-400)
[2016-11-09 05:23] LABS: Magnesium 2.1 mg/dL (1.6-2.6); Phosphorus 3.4 mg/dL (2.5-4.9)
[2016-11-09] MEDS: fentaNYL 2,500 mCg/250 mL 2,500 MCG in IV Premix 1 EACH IV SCH (07:25)
[2016-11-09] MEDS: Nystatin 100,000 Unit/Gm 15 Gm Powder TOPICAL SCH ×2 (07:32→20:55)
--- NOTE | 2016-11-09 08:57 | DRSVH ---
PROCEDURE: X-RAY CHEST ONE VIEW, PORTABLE ([id number]) INDICATIONS: intubated pt; monitor tubes and lines TECHNIQUE: One view of the chest was acquired. COMPARISON: [facility], CR, XR CHEST 1VW (PORTABLE), 11/08/2016, 5:28. FINDINGS: Surgical changes and devices: ETT tip projected 7.1 cm above the manuel. Nasogastric tube tip yi ses the GE junction. Lungs and pleura: No pleural effusions or pneumothorax. Bibasilar opacities redemonstrated. Mediastinum: Mediastinal contours appear normal. Heart size is normal. Bones and chest wall: No suspicious bony lesions. Overlying soft tissues appear unremarkable. IMPRESSION: Bibasilar atelectasis versus aspiration or pneumonia. Correlate clinically. Dictated by: Simba Lezama RRA Interpreted: Macarena Oliver MD on 11/09/2016 at 8:56 Transcribed by: SHANNA on 11/09/2016 at 8:57 Approved by: Macarena Oliver MD, PhD on 11/09/2016 at 18:05
[2016-11-09] MEDS: 0.9% Sodium Chloride 1,000 ML IV SCH ×2 (09:55→19:52)
[2016-11-09] MEDS: Famotidine Inj 20 MG in IV Premix 1 EACH IV SCH ×2 (11:16→20:54)
--- NOTE | 2016-11-09 12:12 | PROG NOTE ---
[address] [address] PROGRESS NOTE PATIENT: JULIA LUNA : 1950 MR#: [id number] ADMIT: 11/06/2016 JOB ID: [id number] DATE: 11/09/2016 SUBJECTIVE: The patient is a 66-year-old homeless man with history of medical noncompliance and belligerence. He presented with acute anterior myocardial infarction and was treated with bare metal stent to the left anterior descending artery. He also has 70% mid circumflex artery and 90% proximal right coronary artery stenosis. He was mechanically ventilated for the past few days and currently on trial for extubation. OBJECTIVE: Vital signs: Temperature is 36.7. Blood pressure is 122/88. Pulse 83. Body weight is 98.5 kg. Head and face have normal configuration. Anicteric sclerae. Neck is supple with no jugular venous distention or carotid bruits. Chest: Normal expansion. Lungs are clear to auscultation anteriorly. Heart: Distant heart sounds. Abdomen: Soft. Bowel sound absent. Extremities: Clubbing of fingers present. No cyanosis or edema. EKG shows sinus rhythm, rate 87 per minute. Old anterior infarct. BLOOD TESTS: Show hemoglobin 12.8, WBC 9.0, platelets 223. Sodium 135, potassium 4.7, chloride 99, bicarb 21, BUN 26, creatinine 0.73, glucose 224. IMPRESSION: 1. Ischemic cardiomyopathy with ejection fraction 35% to 40%. 2. Recent anterior myocardial infarction, treated with a bare metal stent. 3. Three-vessel coronary artery disease. 4. Chronic obstructive pulmonary disease. 5. Obesity with BMI of 33 kg/m2. PLAN: The patient should be on aspirin 81 mg indefinitely. He should take Plavix 75 mg for four weeks due to bare metal stent. He should be on beta gracie, CHERI inhibitor, and statin. However, with his personality, I doubt that he would be compliant to his medications. I believe that the patient could be discharged from the hospital once he is able to ambulate. [facility] VALLEY HOSPITALRichy
--- NOTE | 2016-11-09 12:14 | PROG NOTE ---
[address] [address] PROGRESS NOTE PATIENT: JULIA LUNA : 1950 MR#: [id number] ADMIT: 11/06/2016 JOB ID: [id number] DATE: 11/09/2016 PULMONARY CRITICAL CARE PROGRESS NOTE: The patient is a 66-year-old man seen in followup for respiratory failure with acute ST-elevation ME. The patient was seen and evaluated with resident physician, Avelino Wise. Please refer to his separate detailed note for additional information. INTERVAL HISTORY: SBTs have been difficult on this patient because of his personality issues. It appears that whenever his sedation is lightened enough for him to start breathing on the vent, he starts to get agitated and somewhat combative with the staff. REVIEW OF SYSTEMS: Unable to obtain. PHYSICAL EXAMINATION: Vital signs reviewed. Temperature 36.7, pulse 83, respirations 18, BP 120/80, sats 96% on 40% FiO2. General: Opens eyes to voice when sedation is lightened. Chest is clear to auscultation. He has no edema. LABORATORIES: Reviewed. CBC and chemistry is normal. Chest x-ray reviewed and lungs are clear. Arterial blood gas from this morning shows pH of 7.39, pCO2 of 45, pO2 of 75, bicarb of 27. ASSESSMENT AND RECOMMENDATIONS: 1. Acute hypoxic respiratory failure, on mechanical ventilation since November 06. 2. ST-elevation myocardial infarction, status post left anterior descending stent on November 06. This was a bare metal stent. He also has additional disease in the circumflex and right coronary artery. 3. History of noncompliance and difficult behavioral issues. 4. Chronic obstructive pulmonary disease exacerbation. A 66-year-old homeless man who came in on November 06 with chest pain and ST elevation myocardial infarction. He underwent cardiac catheterization after being intubated per patient request. A bare metal stent was placed in the left anterior descending. He also had disease in the left circumflex and right coronary artery according to Dr. Smith who is seeing the patient now. He has been on the vent now for three days. Today, we lighten his sedation just enough for him to start breathing, but before he got combative. I only watched him for a few minutes on pressure support, but he was pulling tidal volumes at times as big as 1 L and was starting to wake up well. With this and his chest x-ray looking clear, I think it is the best we can do to go ahead and extubate him now. We turned off his propofol and fentanyl and took the endotracheal tube out immediately after. I suspect he will do fine. With regards to his chronic obstructive pulmonary disease - he is getting Solu-Medrol 40 intravenous every 8 which we cut back to 40 intravenous daily. This can be switched to by mouth prednisone tomorrow. He has gotten a couple of doses of Lasix, and his chest x-ray looks clear. I do not really think he is volume overloaded at this point. He is on appropriate deep venous thrombosis prophylaxis, and gastrointestinal prophylaxis is no longer indicated, so we could stop that. CRITICAL CARE TIME: 45 minutes.
[2016-11-09] MEDS: Albuterol-Ipratropium 3 mL Inhalation Solution NEB SCH ×3 (12:28→20:17)
--- NOTE | 2016-11-09 13:23 | PCM.PNMED ---
Subjective Date of Service Nov 09, 2016 Subjective Pulmonology/ICU consultation: Attending Dr. Park. Requesting Physician Dr. Ho. Reason for consult - Pt intubated and ventilated 66 year old male with PMH COPD - on home O2, HTN, CHF CAD multiple prior NSTEMIs with recent NSTEMI admission 10/30/2016 but refused cardiac work up and was discharged. He has a significant history of noncompliance. On 11/06/2016 he presented to [facility] ED with SOB and CP, ECG showed ST elevation in the anterior leads. He received a diagnostic cardiac catheterization with stent placement to the LAD. Pt transferred to the ICU for ventilation management with expectant extubation, however he has failed multiple SBT's becoming tachycardic and tachypneic. Overnight: No significant events reported Exam Vital Signs Vital Sign - Last Date Time Temp Pulse Resp B/P Pulse Ox O2 Delivery O2 Flow Rate FiO2 11/09/16 09:30 88 11/09/16 08:30 Ventilator 11/09/16 08:30 36.7 18 122/88 96 40 11/06/16 04:58 5 Intake and Output 11/08/16 11/08/16 11/09/16 Cumulative From/Thru 15:00 23:00 07:00 11/06/16 01:25 - 11/09/16 06:03 Intake Total 431 ml 506 ml 361 ml 6168 ml Output Total 1150 ml 650 ml 1250 ml 7675 ml Balance -719 ml -144 ml -889 ml -1507 ml Intake Oral 300 ml IV Total 431 ml 476 ml 361 ml 5838 ml Tube Irrigant 30 ml 30 ml Output Urine Total 850 ml 600 ml 600 ml 6175 ml Gastric Drainage Total 300 ml 50 ml 650 ml 1500 ml # Bowel Movements 0 0 0 Exam General: At time of exam Pt Intubated and sedated, lying in hospital bed. Opens eyes to voice, though does not follow commands. HEENT: Normocephalic, atraumatic. External ears without defect. ET tube in place Neck: No jugular venous distension. Cardiovascular: Regular rate and rhythm with no murmurs appreciated Pulmonary: Clear to auscultation bilaterally with no crackles or wheezes. Abdomen: Soft to palpation, nondistended. Extremities: Lower extremity bilateral erythema with excoriations. No edema. Left and Right AC line in place. Right groin cath insertion site showing no sign of infection Psychiatric: Intubated and Sedated Ventilator settings: Tidal volume 500. Respiratory rate 18. FiO2 0.4. PEEP 8. IV drips and Sedatives: NS 25/hr. Fentanyl 50mcg/kg/hr. Propofol 20mcg/kg/hr IV lines: Left and right AC IV line in place I&O TOTAL: in + 6168, out -7675ml, total -1507ml IVs and Medications Medications Reviewed: Medications were reviewed in detail Lab and Diagnostics Result Diagram: 11/09/1633911/09/16 034 X-Rays, CTs and MRIs . X-RAY CHEST ONE VIEW, PORTABLE IMPRESSION: 1. New endotracheal tube tip approximately 5.5 cm from the manuel. 2. Linear medial opacities compatible with atelectasis or aspiration. 3. Probable mild edema. Dictated and approved by: Jimmy Toledo M.D. on 11/06/2016 at 9:21 X-RAY CHEST ONE VIEW, PORTABLE IMPRESSION: 1. No definite change in cardiopulmonary status. Dictated by: Jimmy Toledo M.D. on 11/07/2016 at 11:15 X-RAY CHEST ONE VIEW, PORTABLE IMPRESSION: Bibasilar atelectasis versus pneumonia. Dictated by: Fidel Moran M.D. on 11/08/2016 at 7:33 X-RAY CHEST ONE VIEW, PORTABLE IMPRESSION: Bibasilar atelectasis versus aspiration or pneumonia. Correlate clinically. Dictated by: Simba Lezama RRA Interpreted: Macarena Oliver MD on 11/09/2016 at 8:56 . 12-lead ECG -ECG showed ST elevation in anterior leads V2-V4, repeat ECG showed ST elevation progression with rising troponin levels Additional Diagnostics DIAGNOSTIC CARDIAC CATHETERIZATION FINDINGS: 1. LMCA: The left main coronary artery is intact. 2. LAD: The left anterior descending coronary artery is heavily calcified and initially occluded proximally at the small first septal. When opened, it is a medium-sized transapical vessel with severe diffuse disease in the proximal and mid portions. 3. LCX: The left circumflex coronary artery is a medium-sized vessel. The first OM is a medium-sized branching vessel with 80% lesions. The second OM is a medium-sized vessel with a 70% tubular proximal narrowing. Thereafter the mid LCX is a medium-sized vessel with a 70% proximal lesion. 4. RCA: Dominant. A 90% tubular proximal lesion. The right coronary artery is a large vessel with a large PDA and a large RPLB. 5. LHC: LVED of 20 mmHg; and no systolic gradient across the aortic valve on pullback. Systolic blood pressure 100. CONCLUSIONS: 1. PCI of proximal occluded LAD--Vision BMS--2.5 x 23 mm post dilated to 2.75 mm. 2. ACS--anterior ND with culprit occluded proximal LAD. 3. Coronary artery disease (CAD)--three-vessel disease including occluded proximal LAD; 80% OM 1, 70% mid LCX; and 90% proximal RCA. Kyler Marin MD 11/06/16 0857 . Assessment & Plan Mr. High is a 66 man with past medical history significant for coronary artery disease, hypertension, congestive heart failure, dyslipidemia, and history of non compliance with multiple AGAINST MEDICAL ADVICE discharges admitted for STEMI with stent placement to left anterior descending coronary artery. Patient is unable to lay down at baseline secondary to his chronic lung disease and would only agree to catheterization if he was sedated. Patient intubated and sedated for refuse laborer and admitted to ICU for ventilation management. Hospital Day 4, ventilator day 4. 1. STEMI s/p stent placement to LAD. Present on admission. Presumed stable - Continue daily ASA 81mg and Plavix 75 mg daily. Continue atorvastatin 40 mg daily. - Hold home medications as blood pressure continues to be labile. These include : lisinopril 5mg daily, Amilodipine 5mg daily, isosorbide mononitrate ER 30mg daily, metoprolol tartrate 75 mg BID. - Compliance will be a barrier for this patient - recommend minimal outpatient discharge medications - Cardiology Following 2. Acute on chronic orthopnea, present on admission - Pt unable to lay supine secondary to his COPD and required sedation, intubation & mechanical ventilation in order to successfully complete cardiac catheterization. - Fentanyl and propofol for sedation. Plan for extubation today, with minimal decrease in sedation secondary to combative nature of Pt. 3. Chronic Obstructive Pulmonary Disease with chronic respiratory failure, present on admission. Ongoing - Did not appear to be exacerbated at time of admission. Patient uses 2-3 L supplemental O2 in his car. - Extubation planned for today. - Duoneb Q6 - Continue Solu-Medrol 40 mg IV daily - Plan to SBT today followed by extubation 4. Systolic and Diastolic Congestive Heart Failure, present on admission. Ongoing - Patient did not appear to be decompensated at time of admission. - Echo done during this admission showed EF 35-40% which is decreased from prior study. - IV fluids to be TKO. - Pt total of ~1,500 ml - Lasix given x1. Will monitor closely today for need for additional dosing. 5. Chronic Diabetes Mellitus type 2, present on admission. Ongoing - Hemoglobin A1C 10.3 this admission. - Continue high dose correction scale of regular insulin while patient NPO. - Lantus 10 units HS added overnight. Will plan to continue this and possibly increase based on the day's blood glucose. 6. Paroxysmal atrial tachycardia/atrial fibrillation, chronic, not present on admission. - Plan for rate control with metoprolol. Will not restart at this time as blood pressure still labile. - Cardiology following, started carvedilol today 7. Chronic Hypertension, present on admission, stable. - Patient has been hypotensive and low normotensive during admission. - Hold home meds as in #1. 8. Chronic hyperlipidemia, present on admission, presumed stable - Continue atorvastatin. 9. Chronic depression, present on admission, stable. - Continue sertraline 25 mg daily. 10. Tobacco dependence, chronic, present on admission - Nicotine patch available PRN. 11. Chronic obesity, present on admission, presumed stable. - Recommend weight loss with lifestyle changes. 12. Chronic venous insufficiency, present on admission, stable. - Monitor for signs of infection as the patient also has chronic cellulitis. - Antiemetics available PRN. - Bowel Regimen available PRN. - Nystatin powder available PRN. Disposition: Patient is likely to remain inpatient for several more days will need to be discharged with plans for cardiac rehabilitation. Patient is notoriously noncompliant and homeless and will likely require some social support to make sure he takes his Plavix even for the minimal amount of time. GI Prophylaxis: H2 gracie VTE Prophylaxis: Sub-Q Heparin (Unfractionated), SCDs VTE Mechanical Devices: Intermittant Pneumatic CD Resuscitation Status: CPR: Attempt Resuscitation Attending Statement I have seen and examined this patient with the resident physician. Vital signs , labs, imaging have been reviewed. I agree with the assessment and plan above. Please refer to my separately dictated progress note for any modifications to above. Felicia Parimi M.D. Pulmonary and Critical Care medicine Pager [phone] HARINDER PACKER DO Nov 09, 2016 09:53 Felicia Park MD Nov 09, 2016 13:59
--- NOTE | 2016-11-09 13:44 | NUR ---
NUTRITION FOLLOW-UP: ASSESS: 66 YO M admitted to with STEMI. Pt was transferred to CCU, intubated s/p heart cath procedure. Pt extubated today. Pt has been NPO X 3 days. PMHx: Noncompliance, homeless, COPD, HTN, CHF, CAD, DMII, LLE cellulitis, hypertriglyceridemia, A-fib, history of leaving hospital AMA and abusive to staff. DIET: NPO X 3 day. LABS: Cr 0.73, Glu 224, (11/08): Alb 3.0 MEDICATIONS: Reviewed. Insulin, Solu-medrol, Colace, Senna. GI: No BM reported. SKIN: No issues mentioned. ANTHROPOMETRICS: Current Wt: 98.5 kg, BMI 33.0 kg/m2. Admit weight: 109 kg, IBW: 62.27 kg (169% IBW) ESTIMATED NEEDS (CLASS II OBESITY): Calories: 3938-3151 kcal (22-25 kcal/kg IBW) Protein: 121-135 g protein (1.8-2.0 g/kg IBW) Fluid: Approx. 2841 mL (25 mL/kg BW) NUTRITION DIAGNOSIS: 1) Inadequate oral intake related to inability to consume sufficient energy, as evidenced by NPO/vent status - PERSISTS. INTERVENTION: 1) Recommend diet advance per speech therapy. MONITOR/EVALUATE: NPO status, diet advance/tolerance, labs, GI/nutrition status. Follow per high nutrition risk guidelines.
[2016-11-09] MEDS ORDERED: MeTOProlol 1 mg/mL 5 mL Inj IVPUSH ONE (14:10)
[2016-11-09] MEDS ORDERED: Nitroglycerin 2% 1 Gm Ointment TOPICAL SCH (14:25)
[2016-11-09] MEDS ORDERED: Nitroglycerin 2% 1 Gm Ointment TOPICAL PRN (14:35)
[2016-11-09] MEDS: MeTOProlol 1 mg/mL 5 mL Inj IVPUSH SCH ×2 (15:39→16:27)
--- NOTE | 2016-11-09 16:12 | NUR ---
Social Work Note: Continued Discharge Planning Data&Assessment: Pt has been extubated. SW met with pt at bedside to check in and assess for any unmet needs. Pt explained he does not feel like he is doing any better. Pt denied any needs at this time. SW to continue to follow for medical progression. Plan: Per pt is not medically ready for discharge at this time. Pt denied any needs at this time. SW to continue to follow for medical progression. SURESH Currie
--- NOTE | 2016-11-09 16:14 | NUR ---
CORINNE Signed SURESH Currie
[2016-11-09] MEDS ORDERED: Isosorbide Mononitrate 30 mg ER24 Tablet PO ONE (16:35)
[2016-11-09] MEDS ORDERED: Furosemide 10 mg/mL 4 mL Inj IVPUSH ONE ×2 (16:40→17:10)
--- NOTE | 2016-11-09 16:58 | DRSVH ---
PROCEDURE: X-RAY CHEST ONE VIEW, PORTABLE ([id number]) INDICATIONS: SHORTNESS OF BREATH TECHNIQUE: One view of the chest was acquired. COMPARISON: [facility], CR, XR CHEST 1VW (PORTABLE), 11/09/2016, 5:16. FINDINGS: Surgical changes and devices: None. Lungs and pleura: No pleural effusions or pneumothorax. Medial bibasilar airspace opacities unchang ed. Mediastinum: Mediastinal contours appear normal. Heart size is normal. Bones and chest wall: No suspicious bony lesions. Overlying soft tissues appear unremarkable. IMPRESSION: Bibasilar atelectasis versus aspiration or pneumonia. Correlate clinically. Dictated by: Simba Lezama RRA Interpreted: Macarena Oliver MD on 11/09/2016 at 16:57 Transcribed by: SHANNA on 11/09/2016 at 16:57 Approved by: Macarena Oliver MD, PhD on 11/09/2016 at 18:06
--- NOTE | 2016-11-09 18:41 | NUR ---
P: Respiratory Distress I: Pt extubated at 1040 this am. Pt requiring 9L/OM to keep sats 88-92%. Pt had episode of chest pain 5/10 with SOB. Morphine given. Nitroglycerine paste applied. ST 130's and Metoprolol 5mg IV x3 doses given. Pt NPO and has not had a swallow evaluation at this time. Pt was changed to PCU status this am. came and made his CCU again and wanted Bipap. and Lasix 40mg IV. Dr. Park aware that pt refused bipap. Cramer replaced for frequent urine output with Lasix given. Pt wanted to get up to BS and pt is unable to stand or bear weight at this time. Pt also is extremely SOB with any activity. Pt very uncooperative at times. Morphine 1-2 mg IV given for pt's c/o chest pain. Pt very uncooperative at times but settles down. Pt uses call light continually then doesnt know what he wants. EKG done with earlier chest pain and it showed EKG changes. 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 Right groin site WNL. E: Stable S: Bed alarm on. Frequent rounding about every 10 minutes. Pt talked to his sister. Addendum: 11/09/16 at 1849 by FERMIN BRICENO RN Amended: Links added.
--- NOTE | 2016-11-09 19:23 | PCM.PNMED ---
Subjective Date of Service Nov 09, 2016 Subjective overnight: Patient continues to be mildly agitated and combative with staff when sedation is turned down overnight. Today: Patient was able to be extubated today after passing a spontaneous breathing trial. Patient later developed some shortness of breath and chest pain in the afternoon. Repeat EKG showed ST elevation in the precordial leads V2 through V4 consistent with prior EKG findings prior to stenting of the LAD. Patient continues to be mildly combative with staff. It was discussed the patient's current CODE STATUS and he would like to remain full code. The patient was given morphine for dyspnea, metoprolol for elevated heart rate as well as isosorbide mononitrate and nitroglycerin patch for chest pain. Exam Vital Signs Vital Sign - Last Date Time Temp Pulse Resp B/P Pulse Ox O2 Delivery O2 Flow Rate FiO2 11/09/16 04:30 Ventilator 11/09/16 04:30 36.7 90 18 106/72 94 40 11/06/16 04:58 5 Intake and Output 11/08/16 11/08/16 11/09/16 Cumulative From/Thru 15:00 23:00 07:00 11/06/16 01:25 - 11/09/16 06:03 Intake Total 431 ml 506 ml 361 ml 6168 ml Output Total 1150 ml 650 ml 1250 ml 7675 ml Balance -719 ml -144 ml -889 ml -1507 ml Intake Oral 300 ml IV Total 431 ml 476 ml 361 ml 5838 ml Tube Irrigant 30 ml 30 ml Output Urine Total 850 ml 600 ml 600 ml 6175 ml Gastric Drainage Total 300 ml 50 ml 650 ml 1500 ml # Bowel Movements 0 0 0 Exam Performed prior to patient extubation General: Obese disheveled man appearing older than stated age, Intubated and mildly sedated with mild agitation, lying in hospital bed able to signal provider with his middle finger Eyes: PERRLA, anicteric sclera, noninjected conjunctiva HEENT: Normocephalic, atraumatic. External ears without defect. ET tube in place Neck: Short and thick neck supple, Trachea midline, No jugular venous distension. Cardiovascular: Regular rate and rhythm with no murmurs appreciated Pulmonary: Substantially decreased air movement in all lung marlow, however clear to auscultation bilaterally with no crackles, wheezes,. Abdomen: Soft to palpation, nondistended, no organomegaly noted, large umbilical hernia noted likely 20cm Extremities: Lower extremity bilateral erythema and induration and bilateral llanos excoriations . No edema. Left and Right AC line in place. Right femoral cath insertion site non erythematous no active bleeding. onychomycosis bilaterally in LE Neuro: unable to assess intubated and sedated not following commands Psychiatric: unable to assess intubated and sedated not following commands Performed after patient extubation Psych: Patient correctly responding to questions remains agitated Pulmonary: Patient on oxygen mask with decreased air movement, no wheezing rales or rhonchi noted Cardiovascular: Tachycardia, regular rhythm, no murmurs rubs or gallops appreciated Lab and Diagnostics Result Diagram: 11/09/16 03411/09/16 0340 X-Rays, CTs and MRIs X-RAY CHEST ONE VIEW, PORTABLE IMPRESSION: 1. New endotracheal tube tip approximately 5.5 cm from the manuel. 2. Linear medial opacities compatible with atelectasis or aspiration. 3. Probable mild edema. Dictated and approved by: Jimmy Toledo M.D. on 11/06/2016 at 9:21 X-RAY CHEST ONE VIEW, PORTABLE IMPRESSION: Bibasilar atelectasis versus aspiration or pneumonia. Correlate clinically. Dictated by: Simba Lezama RRA Interpreted: Macarena Oliver MD on 11/09/2016 at 16:57 Transcribed by: SHANNA on 11/09/2016 at 16:57 Approved by: Macarena Oliver MD, PhD on 11/09/2016 at 18:06 12-lead ECG -ECG showed ST elevation in anterior leads V2-V4, repeat ECG showed ST elevation progression with rising troponin levels Additional Diagnostics DIAGNOSTIC CARDIAC CATHETERIZATION FINDINGS: 1. LMCA: The left main coronary artery is intact. 2. LAD: The left anterior descending coronary artery is heavily calcified and initially occluded proximally at the small first septal. When opened, it is a medium-sized transapical vessel with severe diffuse disease in the proximal and mid portions. 3. LCX: The left circumflex coronary artery is a medium-sized vessel. The first OM is a medium-sized branching vessel with 80% lesions. The second OM is a medium-sized vessel with a 70% tubular proximal narrowing. Thereafter the mid LCX is a medium-sized vessel with a 70% proximal lesion. 4. RCA: Dominant. A 90% tubular proximal lesion. The right coronary artery is a large vessel with a large PDA and a large RPLB. 5. LHC: LVED of 20 mmHg; and no systolic gradient across the aortic valve on pullback. Systolic blood pressure 100. CONCLUSIONS: 1. PCI of proximal occluded LAD--Vision BMS--2.5 x 23 mm post dilated to 2.75 mm. 2. ACS--anterior [place] with culprit occluded proximal LAD. 3. Coronary artery disease (CAD)--three-vessel disease including occluded proximal LAD; 80% OM 1, 70% mid LCX; and 90% proximal RCA. Kyler Marin MD 11/06/16 0857 . Assessment & Plan Vincent High is a 66 gentleman with past medical history significant for coronary artery disease, hypertension, congestive heart failure, dyslipidemia, and history of non compliance with multiple AGAINST MEDICAL ADVICE discharges admitted for STEMI with stent placement to left anterior descending coronary artery. Patient is unable to lay down at baseline secondary to his chronic lung disease and would only agree to catheterization if he was sedated. 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 Hospital Day 4 1. STEMI s/p stent placement to LAD. Present on admission. Presumed stable - Continue daily ASA 81mg and Plavix 75 mg daily. Continue atorvastatin 40 mg daily. - Hold home medications as blood pressure continues to be labile. These include : lisinopril 5mg daily, Amilodipine 5mg daily, isosorbide mononitrate ER 30mg daily, metoprolol tartrate 75 mg BID. Consider re-starting slowly. - Cardiology continues to follow the patient and we appreciate their recommendations. - Compliance will be a barrier for this patient - recommend minimal outpatient discharge medications - Cardiology was called after chest pain and dyspnea in the afternoon and stated they would not be taking the patient back to the cardiac ship laborer - Isosorbide mononitrate given as well as nitroglycerin paste on 11/09/2016 - Morphine available when necessary - Metoprolol IV for tachycardia - Patient will need at least 4 weeks of Plavix 75 mg daily given his bare mental stenting with recommendations to take aspirin daily indefinitely 2. Acute on chronic orthopnea, present on admission - Required mechanical ventilation to tolerate cardiac catheterization secondary to his inability to be cooperative while he lay flat. - Patient required 3 days of mechanical ventilation before being extubated on - RT to place patient on oxygen mask and BiPAP facemask 3. Chronic Obstructive Pulmonary Disease with chronic respiratory failure, present on admission. - Did not appear to be exacerbated at time of admission. Patient uses 2-3 L supplemental O2 in his car. - extubation to oxygen mask and likely BiPAP overnight. - Continue albuterol neb Q4 PRN and ipratropium Q6 scheduled. - Continue Solu-Medrol 40 mg IV daily 4. Systolic Congestive Heart Failure secondary to ischemic cardiomyopathy, present on admission. Ongoing - Patient did not appear to be decompensated at time of admission. - Echo done during this admission showed EF 35-40% which is decreased from prior study. - IV fluids to be TKO. - Lasix given - Metoprolol IV until patient can safely pass a swallow eval - Carvedilol to be initiated as soon as possible - Patient should be on a beta gracie, CHERI inhibitor, spironolactone at discharge 5. Chronic Diabetes Mellitus type 2, present on admission. Ongoing - Hemoglobin A1C 10.3 this admission. - Continue high dose correction scale of regular insulin while patient NPO. - Lantus 10 units HS added overnight. Will plan to continue this and possibly increase based on the day's blood glucose. 6. Paroxysmal atrial tachycardia/atrial fibrillation, chronic, not present on admission. - rate control with metoprolol. - Carvedilol to be initiated as soon as possible 7. Chronic Hypertension, present on admission, stable. - Patient has been hypotensive and low normotensive during admission. - Start lisinopril and carvedilol as soon as possible 8. Chronic hyperlipidemia, present on admission, presumed stable - Continue atorvastatin. 9. Chronic depression, present on admission, stable. - Continue sertraline 25 mg daily. 10. Tobacco dependence, chronic, present on admission - Nicotine patch available PRN. 11. Chronic obesity, present on admission, presumed stable. - Recommend weight loss with lifestyle changes. 12. Chronic venous insufficiency, present on admission, stable. - Monitor for signs of infection as the patient also has chronic cellulitis. - Antiemetics available PRN. - Bowel Regimen available PRN. - Nystatin powder available PRN. Disposition: Patient is likely to remain inpatient for several more days will need to be discharged with plans for cardiac rehabilitation. Patient is notoriously noncompliant and homeless and will likely require some social support to make sure he takes his Plavix even for the minimal amount of time. Pain Evaluation: Adequate Pain Control GI Prophylaxis: H2 gracie VTE Prophylaxis: Sub-Q Heparin (Unfractionated), SCDs VTE Mechanical Devices: Intermittant Pneumatic CD Resuscitation Status: CPR: Attempt Resuscitation Attending Statement The patient was seen and examined together with Dr. Ho on 11/09/2016 and I agree with the history, exam and plan as outlined in the note above. . Kenrick Ho DO Nov 09, 2016 07:01 Mariano Porter MD Nov 13, 2016 08:33
[2016-11-09] MEDS: Insulin GLARgine 100 Unit/mL Syringe SUBQ SCH (20:55)
[2016-11-10] VITALS (23 sets, daily range): BP systolic 70–135; BP diastolic 43–96; PULSE 78–176; RESP 18–26; O2SAT 88–96
[2016-11-10] MEDS: Albuterol 2.5 mg/3 mL Inhalation Solution NEB PRN ×2 (02:06→07:37)
[2016-11-10] MEDS: Insulin Human REGular 300 Unit/3 mL Inj SUBQ SCH ×4 (02:30→21:36)
--- NOTE | 2016-11-10 04:52 | NUR ---
Resp / Non-compliance /cardiac Patient on 4L OM to 11L OM. SpO2 goal 88-92%. Patient declined bipap initially in the shift despite education. Patient later agreed to wear it but only tolerated it for ten minutes before requesting it to be removed. Patient has a moist cough, states he is swallowing some sputum. Voice is hoarse. NPO. Patient noncompliant with turns, will not let me assess the skin on his back and buttocks. Tele ST. No chest pain. BP stable.
[2016-11-10 04:54] LABS: BASOPHILS % (AUTO) 0.1 % (0-3); EOSINOPHILS % (AUTO) 0.1 % (0-5); MONOCYTES % (AUTO) 11.8 % (4-12); Mean Corpuscular Hemoglobin 28.2 pg (27.0-35.0); Mean Corpuscular Volume 86.2 fL (81-100); NEUTROPHILS % (AUTO) 80.1 % (40-74); Platelet Count 246 bil/L (150-400)
[2016-11-10] MEDS: 0.9% Sodium Chloride 1,000 ML IV SCH ×2 (04:58→19:33)
[2016-11-10 05:39] LABS: Magnesium 1.8 mg/dL (1.6-2.6)
[2016-11-10] MEDS: Famotidine Inj 20 MG in IV Premix 1 EACH IV SCH ×2 (08:29→21:34)
[2016-11-10] MEDS: MethylprednisoLONE Sodium Succinate 40 mg/mL Inj IVPUSH SCH (08:29)
[2016-11-10] MEDS: Nystatin 100,000 Unit/Gm 15 Gm Powder TOPICAL SCH ×2 (08:30→21:34)
[2016-11-10] MEDS: Heparin 5,000 Unit/mL Inj SUBQ SCH ×2 (08:30→16:30)
--- NOTE | 2016-11-10 09:11 | NUR ---
Social Work Note - Continued D/C planning FILTER WASHER met with pt - pt is awake, on a nonrebreather. He states that he does not feel well. EMR reviewed: Pt will require several more days of inpt treatment and will need close medical management after d/c for strengthening as well as med compliance on plavix. FILTER WASHER discussed SNF for rehab. Pt has been [facility] - he states that he is not sure he wants to go to SNF. He identifies that he is weak, would not be able to minimally function in his car. He states he wants to think about SNF - not ready to make a decision. FILTER WASHER provided support and will continue to coordinate care. Pt asked for FILTER WASHER to call his DANA Decker from [facility] with update that he is here. FILTER WASHER called and left a message. Plan: Explore SNF for rehab vs Pt returning to his car at d/c. DULCE MARIA Acosta
--- NOTE | 2016-11-10 09:44 | PROG NOTE ---
[address] [address] PROGRESS NOTE PATIENT: JULIA LUNA : 1950 MR#: [id number] ADMIT: 11/06/2016 JOB ID: [id number] DATE: 11/10/2016 SUBJECTIVE: The patient reports being physically inactive before he came to the hospital. He drives around with little physical activity. He is aware that he had a heart attack three days ago. He admitted to drinking and smoking in the past. He denies any chest discomfort at the present time. He is uncooperative. OBJECTIVE: Temperature is 36.6. Blood pressure is 82/63. Pulse 111. Skin is warm and moist. Head and face have normal configuration. Anicteric sclerae. Narrow oropharynx. Chest normal expansion. Lungs bilateral rhonchi. Heart: Distant heart sounds. Abdomen: Soft. Obese. Extremities: No edema or cyanosis. Neurology: Awake and oriented x3. EKG today shows sinus tachycardia with anterior Q-wave with persistent ST-segment elevation in the anterior leads. BLOOD TESTS: Show hemoglobin 12.5, WBC 9.4, platelet 246. Sodium 140, potassium 3.7, chloride 99, bicarbonate 26, BUN 34, creatinine 0.69, glucose 145. Troponin 0.773. Chest x-ray showed pulmonary congestion and ProBNP 5,151. IMPRESSION: 1. Cardiogenic shock. 2. Congestive heart failure. 3. Recent anterior myocardial infarction. 4. Severe stenosis of the right coronary artery and circumflex artery. 5. Medical noncompliance. PLAN: I have explained his clinical situation to the patient in details. I would like to obtain a limited echocardiogram for evaluation of his cardiogenic shock, whether he has mechanical complication from recent anterior infarct. However, the patient refused further investigation. I am not certain whether the patient will take his medicine once he leaves the hospital. I believe that it would be best at this time to let nature take its course. Note: Critical care time 40 minutes. RINA
--- NOTE | 2016-11-10 10:25 | DRSVH ---
PROCEDURE: X-RAY CHEST ONE VIEW, PORTABLE ([id number]) INDICATIONS: Pulm Edema TECHNIQUE: One view of the chest was acquired. COMPARISON: [facility], CR, XR CHEST 1VW (PORTABLE), 11/09/2016, 16:34. FINDINGS: Surgical changes and devices: None. Lungs and pleura: No pleural effusions or pneumothorax. Interstitium is prominent and streaky bibas ilar opacities are present similar to prior examination Mediastinum: Mediastinal contours appear normal. Heart size is normal. Bones and chest wall: No suspicious bony lesions. Overlying soft tissues appear unremarkable. IMPRESSION: Bibasilar streaky densities similar to prior examination suggesting atelectasis versus pneumonia. Co rrelate clinically. Prominent interstitium and mild edema cannot be excluded. Dictated by: Simba Lezama RRA Interpreted: Cesar Medeiros MD on 11/10/2016 at 10:24 Transcribed by: NANCY on 11/10/2016 at 10:25 Approved by: Cesar Medeiros M.D. on 11/10/2016 at 11:28
--- NOTE | 2016-11-10 11:03 | PCM.PNMED ---
Subjective Date of Service Nov 10, 2016 Subjective 66 year old male with significant cardiac history including multiple NSTEMIs, CAD, CHF and COPD, presented to ED with STEMI and subsequently received bare metal stent placement to LAD. Pt required sedation and intubation prior to procedure secondary to his inability to lay flat on the procedure table secondary to hid COPD/CHF. Pt was extubated yesterday and later had a significant episode of substernal nonradiating chest pain while attempting to get out of bed to use the bathroom. Repeat ECG showed ST elevation on his anterior leads and he required morphine and nitro paste to help mitigate his pain. He also required Metoprolol IV for rate control. Her was placed on BiPAP as he continued to have an increased work of breathing with low O2 saturations. Overnight: Pt was non compliant with his BiPAP also refusing to wear oxy mask for much of the night. At time of interview Pt was not wearing any supplemental O2 and was saturating at 75. He complains of a persistent cough and SOB though denies any chest pain. He endorses bilateral lower extremity pain and a generalized weakness. Exam Vital Signs Vital Sign - Last Date Time Temp Pulse Resp B/P Pulse Ox O2 Delivery O2 Flow Rate FiO2 11/10/16 08:19 36.6 106 26 82/63 89 OxyMask 6.00 11/10/16 02:27 28 Intake and Output 11/09/16 11/09/16 11/10/16 Cumulative From/Thru 15:00 23:00 07:00 11/06/16 01:25 - 11/10/16 05:17 Intake Total 50 ml 6218 ml Output Total 500 ml 2200 ml 85609 ml Balance -500 ml -2150 ml -4157 ml Intake Oral 300 ml IV Total 50 ml 5888 ml Tube Irrigant 30 ml Output Urine Total 500 ml 2200 ml 8875 ml Gastric Drainage Total 1500 ml # Bowel Movements 0 Exam General: Obese male Pt awake and alert laying in bed at ~45 degree angle, in moderate respiratory distress. Supplemental O2 not in place and Pt oxygen saturation at 75, this carmen to 91% with placement of Oxymask. HEENT: Normocephalic, atraumatic. PERRL. Mucus membranes appear dry. Neck: No jugular venous distension. Cardiovascular: Tachycardic rate with regular rhythm. no murmurs appreciated Pulmonary: Expiratory crackles, no wheezes appreciated. Abdomen: Soft to palpation, nondistended. Extremities: Lower extremity bilateral erythema with excoriations. No edema. Left and Right AC line in place. Neurologic: Cranial nerves II-XII grossly intact Psychiatric: Alert and Oriented x 4 IV lines: Left and right AC IV line in place I&O TOTAL: in + 6,218ml, out -10,375ml, total -4,157ml IVs and Medications Medications Reviewed: Medications were reviewed in detail Lab and Diagnostics Result Diagram: 11/10/1642911/10/16 043 X-Rays, CTs and MRIs X-RAY CHEST ONE VIEW, PORTABLE IMPRESSION: 1. New endotracheal tube tip approximately 5.5 cm from the manuel. 2. Linear medial opacities compatible with atelectasis or aspiration. 3. Probable mild edema. Dictated and approved by: Jimmy Toledo M.D. on 11/06/2016 at 9:21 X-RAY CHEST ONE VIEW, PORTABLE IMPRESSION: Bibasilar atelectasis versus aspiration or pneumonia. Correlate clinically. Dictated by: Simba Lezama RR Interpreted: Macarena Oliver MD on 11/09/2016 at 16:57 Transcribed by: SHANNA on 11/09/2016 at 16:57 Approved by: Macarena Oliver MD, PhD on 11/09/2016 at 18:06 12-lead ECG -ECG showed ST elevation in anterior leads V2-V4, repeat ECG showed ST elevation progression with rising troponin levels Cardiac Echo Impressions Echocardiogram Report 11/06/2016 Interpretation Summary The left ventricle is borderline dilated. There is akinesis along the apical wall and severe hypokinesis along the anteroseptal wall. There is mild to moderate hypokinesis along the anterior wall. Left ventricular systolic function is moderate to severely reduced. The ejection fraction is estimated to be 35-40%. LVEF has decreased since prior study. Assessment of diastolic parameters indicates a relaxation abnormality of the left ventricle, consistent with normal filling pressures. The right ventricle is normal size. Right ventricular systolic function is mildly reduced. Both atria are mildly dilated. There is no significant valvular heart disease. The aortic root is mildly dilated. Additional Diagnostics DIAGNOSTIC CARDIAC CATHETERIZATION FINDINGS: 1. LMCA: The left main coronary artery is intact. 2. LAD: The left anterior descending coronary artery is heavily calcified and initially occluded proximally at the small first septal. When opened, it is a medium-sized transapical vessel with severe diffuse disease in the proximal and mid portions. 3. LCX: The left circumflex coronary artery is a medium-sized vessel. The first OM is a medium-sized branching vessel with 80% lesions. The second OM is a medium-sized vessel with a 70% tubular proximal narrowing. Thereafter the mid LCX is a medium-sized vessel with a 70% proximal lesion. 4. RCA: Dominant. A 90% tubular proximal lesion. The right coronary artery is a large vessel with a large PDA and a large RPLB. 5. LHC: LVED of 20 mmHg; and no systolic gradient across the aortic valve on pullback. Systolic blood pressure 100. CONCLUSIONS: 1. PCI of proximal occluded LAD--Vision BMS--2.5 x 23 mm post dilated to 2.75 mm. 2. ACS--anterior PA with culprit occluded proximal LAD. 3. Coronary artery disease (CAD)--three-vessel disease including occluded proximal LAD; 80% OM 1, 70% mid LCX; and 90% proximal RCA. Kyler Marin MD 11/06/16 0857 . Assessment & Plan Mr. High is a 66 man with past medical history significant for coronary artery disease, hypertension, congestive heart failure, dyslipidemia, and history of non compliance with multiple AGAINST MEDICAL ADVICE discharges admitted for STEMI with stent placement to left anterior descending coronary artery. Patient is unable to lay down at baseline secondary to his chronic lung disease and would only agree to catheterization if he was sedated. 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 Hospital Day 5, ventilator day 5. 1. STEMI s/p stent placement to LAD. Present on admission. - Pt had an additional episode of CP yesterday - Morphine PRN - Nitropaste PRN - Metoprolol 5mg IV to keep HR below 120 BPM (Pt is NPO) - Cardiology notified, and at time of dictation Pt scheduled to return to phlebotomy lab assistant for additional 2 vessel intervention pending results of limited ECHO. - Continue daily ASA 81mg and Plavix 75 mg daily. Continue atorvastatin 40 mg daily. - Hold home BP medications as blood pressure continues to be labile - Restart isosorbide mononitrate as Pt is requiring Nitro past for relief of chest pain - Compliance will be a barrier for this patient - recommend minimal outpatient discharge medications - Cardiology Following 2. Acute on chronic orthopnea, present on admission - Pt unable to lay supine secondary to his COPD and required sedation, intubation & mechanical ventilation in order to successfully complete cardiac catheterization. - Pt will likely need to be reintubated today if he undergoes repeat catheterization. - Discussed this with Pt and he amenable to intubation with a max time limit of being on the ventilator of 1 week. 3. Chronic Obstructive Pulmonary Disease with chronic respiratory failure, present on admission. Ongoing - Did not appear to be exacerbated at time of admission. Patient uses 2-3 L supplemental O2 in his car. - Duoneb Q6 - Continue Solu-Medrol 40 mg IV daily, will consider switching this to oral Prednisone after repeat catheterization 4. Systolic and Diastolic Congestive Heart Failure, present on admission. Ongoing - Patient did not appear to be decompensated at time of admission. - Echo done during this admission showed EF 35-40% which is decreased from prior study. - IV fluids to be TKO. - Pt output total of negative 4,157ml - Lasix given for pressure control and possible developing pulmonary edema. - Continue to monitor this closely 5. Chronic Diabetes Mellitus type 2, present on admission. Ongoing - Hemoglobin A1C 10.3 this admission. - High dose correction scale of regular insulin while patient NPO. - Lantus 10 units HS 6. Paroxysmal atrial tachycardia/atrial fibrillation, chronic, not present on admission. - Rate control with metoprolol. - Cardiology following 7. Chronic Hypertension, present on admission, stable. - Patient has been hypotensive and low normotensive during admission. - Hold home meds as in #1. 8. Chronic hyperlipidemia, present on admission, presumed stable - Continue atorvastatin. 9. Chronic depression, present on admission, stable. - Continue sertraline 25 mg daily. 10. Tobacco dependence, chronic, present on admission - Nicotine patch available PRN. 11. Chronic obesity, present on admission, presumed stable. - Recommend weight loss with lifestyle changes. 12. Chronic venous insufficiency, present on admission, stable. - Monitor for signs of infection as the patient also has chronic cellulitis. - Lower extremity US results pending GI Prophylaxis: H2 gracie VTE Prophylaxis: Sub-Q Heparin (Unfractionated), SCDs VTE Mechanical Devices: Intermittant Pneumatic CD Resuscitation Status: CPR: Attempt Resuscitation Attending Statement I have seen and examined this patient with the resident physician. Vital signs , labs, imaging have been reviewed. I agree with the assessment and plan above. Please refer to my separately dictated progress note for any modifications to above. Felicia Park M.D. Pulmonary and Critical Care medicine Pager [phone] HARINDER PACKER DO Nov 10, 2016 09:55 Felicia Park MD Nov 11, 2016 07:37
--- NOTE | 2016-11-10 11:28 | PROG NOTE ---
[address] [address] PROGRESS NOTE PATIENT: JULIA LUNA : 1950 MR#: [id number] ADMIT: 11/06/2016 JOB ID: [id number] DATE: 11/10/2016 PULMONARY PROGRESS NOTE: The patient is a 66-year-old man with a history of homelessness admitted with acute ST-elevation WI and respiratory failure. The patient was seen and evaluated with resident physician, Avelino Wise. Refer to his separate detailed note for additional information. INTERVAL HISTORY: He was extubated yesterday and subsequently when he got up to go to the bathroom developed sudden onset chest pain, shortness of breath and hypoxia. He has been in some respiratory distress since that time. He was treated with nitro paste, IV Lasix. Stat repeat chest x-ray was done. There was no evidence of sudden change on the chest x-ray and he is still tachypneic at this time. REVIEW OF SYSTEMS: He feels terrible. Shortness of breath. Had some chest pain earlier but this has since resolved. PHYSICAL EXAMINATION: Vital signs reviewed. He is on 6 L on Oxy Mask. General: Alert, answering questions appropriately. He is tachypneic at rest. Chest: He has bilateral crackles and rhonchi but no wheezes. LABORATORIES: Reviewed. Within normal limits. Troponin is trending down 0.7 from 0.9 yesterday. BNP is up to 5000 from 3000 yesterday and 2800 the day prior. IMAGING: Chest x-ray from this morning reviewed and looks improved. There was some increase in infiltrates on x-ray yesterday but this seems better today. ASSESSMENT AND RECOMMENDATIONS: 1. ST-elevation myocardial infarction status post left anterior descending stent on November 07. 2. Acute hypoxic respiratory failure on mechanical ventilation November 07 until November 09. 3. ? flash pulmonary edema with respiratory distress. 4. Personality disorder with difficult behavioral issues. This 66-year-old homeless gentleman who was had an WI with LAD stent placed on November 07 was extubated yesterday and seemed to be doing well for a little while but some time in the afternoon developed respiratory distress with chest pain and hypoxia. He refused to wear the BiPAP because it was too uncomfortable. He did get a little bit better with nitro paste, Lasix, etc., but his blood pressures today are in the 80s-90s systolic so we held off on adding nitrates orally. Dr. Smith with Cardiology has been speaking to the patient about definitive intervention for his right coronary artery and left circumflex stenoses and they are considering repeat cath during this hospitalizations to do an angioplasty of both of these vessels. The patient is amenable to this. I tried to clarify with him further regarding his code status and wishes regarding intubation. He said that if putting a tube in was the only way to keep him alive, he would be willing to have it done again but not for an indefinite or prolonged period. We finally came to the conclusion that he would be agreeable to being intubated for no more than a week and would not want prolonged life support. He is on appropriate DVT and GI prophylaxis. I have some concern about PE being the source of his acute decompensation but we are just going to do a lower extremity duplex and make sure he does not have a DVT.
[2016-11-10] MEDS ORDERED: fentaNYL-PF 50 mCg/mL 2 mL Inj ONE (11:41)
[2016-11-10] MEDS ORDERED: Phenylephrine/NS 100 mCg/mL 10 mL Syringe IVPUSH ONE (11:41)
[2016-11-10] MEDS ORDERED: Rocuronium 10 mg/mL 5 mL Inj ONE (11:41)
[2016-11-10] MEDS: Albuterol-Ipratropium 3 mL Inhalation Solution NEB SCH ×2 (11:46→20:00)
[2016-11-10] MEDS ORDERED: Nitroglycerin 50,000 mcg/250 mL D5W Premix IV ONE (16:04)
[2016-11-10] MEDS ORDERED: Heparin 1,000 Units/500 mL NS Premix IV ONE (16:04)
[2016-11-10] MEDS ORDERED: 0.9% Sodium Chloride 2,000 ML ONE (16:04)
[2016-11-10] MEDS ORDERED: Heparin 1,000 Unit/mL 10 mL Inj ONE ×2 (16:04→17:36)
[2016-11-10] MEDS ORDERED: Amiodarone 150 mg/100 mL D5W Premix IV ONE (16:14)
[2016-11-10] MEDS ORDERED: Amiodarone 360 mg/200 mL D5W Premix IV ONE ×3 (16:19→23:19)
[2016-11-10] MEDS ORDERED: Amiodarone 150 mg/100 mL D5W IV ONE (16:25)
[2016-11-10] MEDS ORDERED: [UNRECOGNIZED DRUG - OTHER] IV SCH (16:25)
--- NOTE | 2016-11-10 16:27 | PCM.HPANE ---
Patient Data Surgeon Admitting Provider:Kyler Marin MD Attending Provider:Kyler Marin MD Primary Care Physician:Yumiko James MD Other Provider: Reason for Visit STEMI STEMI, PTCA/stent Ht/WT & BMI Height (Feet): 5 Height (Inches): 8.00 Weight (Kilograms): 97.600 Body Mass Index 37.72 Allergies Coded Allergies: vancomycin (Verified Allergy, Intermediate, Rash,Itching,, 11/06/16) Per Q: Pt should tolerates vancomycin as long as the rate is slow Past Anesthesia History Anesthesia History: Denies:: Abnormal Airway, Anesthesia Reactions, Difficult Intubation Diabetes History Hx Diabetes?: Yes Type of Diabetes: Type I Glycemic Control: Insulin Dependent Current Bedside Blood Glucose: 126 MRSA MRSA: No Medications Hypertension Medication: Yes Home Meds Incl Beta Saravanan: Yes Beta Saravanan Contraindicated: Symptoms of CHF Present Active Scripts oxyCODONE-Acetaminophen 5-325 mg 1 Each Tablet1-2 Tab PO Q6H PRN For Pain #6 TABLET Ref 0 Prov:Bk Richardson MD 11/04/16 Nitroglycerin SL 0.4 Mg Tab.subl0.4 Mg SL Q5MIN PRN For Chest Pain #1 BOTTLE Prov:Kenrick Ho DO 09/24/16 Isosorbide MN ER 30 Mg Tab.er.24h30 Mg PO DAILY #30 TABLET Prov:Kenrick Ho DO 09/24/16 Atorvastatin Calcium 20 Mg Cesvhe04 Mg PO HS #30 TABLET Prov:Kenrick Ho DO 09/24/16 Amlodipine 5 Mg Tablet5 Mg PO DAILY 30 Days Prov:Kenrick Ho DO 09/24/16 Lisinopril 5 Mg Tablet5 Mg PO DAILY #30 TABLET Ref 0 Prov:Kenrick Ho DO 09/24/16 Insuln Asp Prt/Insulin Aspart (NovoLOG 70/30 U100 Insulin Flexpen)100 Unit/Ml Unit12 Unit SUBQ BID #1 PENINJ Ref 0 Prov:Kenrick Ho DO 09/24/16 Glipizide 5 Mg Tablet5 Mg PO BIDAC #60 TABLET Prov:Kenrick Ho DO 09/24/16 Clopidogrel 75 Mg Llcdsa27 Mg PO DAILY #30 TABLET Prov:Kenrick Ho DO 09/24/16 Metformin (Glucophage)1,000 Mg Tablet1,000 Mg ORAL BID #60 Prov:Kenrick Ho DO 09/24/16 Metoprolol Tartrate 75 Mg Wkcbld69 Mg PO BID #60 TABLET Ref 3 Prov:Kenrick Ho DO 09/24/16 Reported Medications Fluticasone Propionate (Flovent HFA 220 mcg)12 Gm Aer.w.adap1 Puff IH BID #12 GM Ref 0 10/28/16 Sertraline HCl (Sertraline)20 Mg/1 Ml Oral.conc25 Mg PO DAILY #1 BOTTLE Ref 0 10/28/16 Hydrocortisone 2.5 % Cream.appl30 Gm RC BID 10/28/16 Ketoconazole 120 Ml Jfzfppm865 Ml TP DAILY 10/28/16 Albuterol Neb Soln 2.5 Mg/3 Ml Vial.neb2.5 Mg INHALATION Q4H Ref 0 10/28/16 Albuterol HFA (Proair HFA)8.5 Gm Hfa.aer.ad2 Puffs INHALATION Q4H PRN For Shortness of Breath #1 INHALER 10/28/16 Discontinued Scripts Nitroglycerin SL 0.4 Mg Tab.subl0.4 Mg SL Q5MIN #1 BOTTLE Prov:Bk Richardson MD 11/04/16 History History of ENT Problems?: No HEENT History: Denies:: Abnormal Airway Cataracts Difficult Intubation Dysphagia Sinus Problem Hx of Heart Problems?: Yes Cardiovascular History: Positive for:: Chest Pain (hx shows PA, CP) Congestive Heart Failure Edema Hypertension Irregular Heartbeat (paroxymal atrial tachycardia ) Denies:: Cardiac Surgery Heart Murmur Pacemaker Thrombophlebitis Hx of Respiratory Problem?: Yes Respiratory History: Positive for:: Asthma COPD Dyspnea Emphysema Hemoptysis Pneumonia Denies:: Chest Surgery Tuberculosis Hx Neurologic Problems?: No Neurological History: Denies:: Alzheimer's Disease CVA Dementia Dizziness Headaches Parkinson's Disease Seizures Hx of GI Problems?: No Gastrointestinal History: Denies:: Diverticulitis Gastroesphageal Reflux Gastrointestinal Bleeding Heartburn Hepatitis Hiatal Hernia Rectal Bleeding Hx of Problems?: No Genitourinary History: Denies:: HX of Hemodialysis Kidney Stones Urinary Tract Infection HX of Peritoneal Dialysis: No Male Hx: Denies:: Prostate Problems Scrotal Mass Testicular Surgery Hx Musculoskeletal Problems?: Yes Musculoskeletal History: Positive for:: Back Injury (pt states crushed vertebrae 4, shoulder left ) Denies:: Joint Replacement Musculoskeletal Trauma Hx of Psycho/Social Problems?: Yes Psycho Social History: Positive for:: Anxiety Denies:: Bipolar Disorder Hx Depression Suicide Attempt Hx Surgeries?: Yes Hx Any Other Health Problems?: Yes Other History: Positive for:: Endocrine Disease Hospitalization (copd exacerbation - multiple) Denies:: Cancer Thyroid Disease History Blood Transfusions: Positive for:: Accept Blood Products? Denies:: Blood Transfuse Reaction Blood Transfusions Hx Diabetes: YesBedside Blood Glucose: 126 Occupation: Homeless, unemployed. Hx Alcohol Use: NoHx Substance Use: No Smoking Status: Former Smoker Have You Smoked inLast 12 mo: No Stop/Bang Treated for Sleep Apnea?: No Do You Have a CPAP Machine?: No S-Snoring: Do You Snore Loudly: No T-Tired: feel tired, fatigued: No O-Obsered: Observed not breath: No P-Blood Pressure: treated: Yes B- Body Mass Index > 35 kg/m2: Yes A- Age over 50: Yes N- Neck Large Circumference: Yes G- Gender Male: Yes YOEL Total Score: 5 Risk Assessment Category Category 1A: Patient has history of documented sleep apnea, and HAS NOT received any narcotic, sedative or anesthesia administration during this stay. Category 1B: Patient has history of documented sleep apnea, and HAS received any narcotic , sedative or anesthesia administration during this stay Category 2: Patient has SUSPECTED Obstructive Sleep Apnea, and HAS received any narcotic , sedative or anesthesia administration during this stay. Category 3: Patient has SUSPECTED Obstructive Sleep Apnea and HAS NOT received narcotic, sedative or anesthesia administration during this stay. Category 4: Outpatient in Procedural Areas with known sleep apnea or who screen positive for High Risk via the STOP/BANG questionnaire. Exam Exam Vital Signs Vital Signs Date Time Temp Pulse Resp B/P Pulse Ox O2 Delivery O2 Flow Rate FiO2 11/10/16 16:06 36.9 176 22 119/65 91 OxyMask 6.00 11/10/16 15:24 113 24 92 OxyMask 5.00 11/10/16 11:47 109 24 93 OxyMask 5.00 11/10/16 11:30 36.6 101 24 108/70 91 OxyMask 6.00 11/10/16 10:07 110 11/10/16 09:55 110 General Appearance: Moderate Distress, Other (patient disheveled, very cantancerous and rude, ) HEENT/AIRWAY: MP 2, Mouth Opening (3-4 FB), Other (poor dentition, large tobin) Lungs: Other (tachypneic with low SpO2 on high flow O2. ) Heart: Other (tachycardic to 190's, baseline this admission recently has been 110's-120's) Meds/Labs/Diagnostics Admission Meds Current Medications Furosemide (Lasix Inj) 40 mg ONCE ONCE IVPUSH Last administered on 11/09/16t 17:58; Start 11/09/16 at 17:10; Stop 11/09/16 at 17:11; Status DC Bedside Blood Glucose: 126 Labs Test 11/06/16 03:13 11/07/16 18:00 11/08/16 00:45 11/08/16 04:15 Prothrombin Time 10.2sec (8.1-12.5) Prothromb Time International Ratio 0.95ratio D-Dimer 0.7mg/L (<0.50) Hemoglobin A1c 10.3% (4.8-5.6) Lactic Acid Level 1.4mmol/L (0.4-2.0) Hold Purple Top Tube Received (Received) Hold Cameron Top Tube Received (Received) Hold Ramires Top Tube Received (Received) Total Creatine Kinase 394U/L (21-232) Creatine Kinase MB 34.4ng/mL (0.0-10.4) Creatine Kinase MB % 8.7% (0.0-5.0) Thyroid Stimulating Hormone (TSH) 0.340uIU/mL (0.450-4.500) Test 11/08/16 15:43 11/09/16 14:32 11/10/16 04:30 Urine Color Yellow (YELLOW) Urine Appearance Clear (CLEAR,HAZY) Urine pH 5.5 (5.0-8.0) Urine Specific [place] 1.020 (1.003-1.035) Urine Protein Negativemg/dL (NEG,TRACE) Urine Glucose (UA) >1000mg/dL (NEGATIVE) Urine Ketones 15mg/dL (NEGATIVE) Urine Occult Blood Negative (NEGATIVE) Urine Nitrite Negative (NEGATIVE) Urine Bilirubin Negative (NEGATIVE) Urine Urobilinogen Normalmg/dL (NORMAL) Urine Leukocyte Esterase Negative (NEGATIVE) Urine RBC 0-2/hpf (0-2) Urine WBC 0-5/hpf (0-5) Urine Epithelial Cells Few/hpf (NONE-MOD) Urine Crystals None seen (NONE SEEN) Urine Bacteria Few/hpf (NONE-FEW) Urine Hyaline Casts None/lpf (NONE) Urine Granular Casts None seen (NONE SEEN) Urine Waxy Casts None seen (NONE SEEN) Urine Red Blood Cell Casts None seen (NONE SEEN) Urine White Blood Cell Casts None seen (NONE SEEN) Urine Mucus None seen (None Seen) Urine Trichomonas None seen (NONE SEEN) Urine Yeast None (NONE SEEN) Urinalysis Comment None Urine Culture Reflexed Not indicated Troponin T 0.773ug/L (0.0-0.011) White Blood Count 9.4th/mm3 (3.8-10.1) Red Blood Count 4.43mil/mm3 (4.40-5.80) Hemoglobin 12.5g/dL (13.8-17.2) Hematocrit 38.2% (41.0-50.0) Mean Corpuscular Volume 86.2fL (81-100) Mean Corpuscular Hemoglobin 28.2pg (27.0-35.0) Mean Corpuscular Hemoglobin Concent 32.7% (32.0-37.0) Red Cell Distribution Width 14.7% (12.3-15.4) Platelet Count 246bil/L (150-400) Neutrophils (%) (Auto) 80.1% (40-74) Lymphocytes (%) (Auto) 7.7% (14-46) Monocytes (%) (Auto) 11.8% (4-12) Eosinophils (%) (Auto) 0.1% (0-5) Basophils (%) (Auto) 0.1% (0-3) Sodium Level 140mEq/L (134-144) Potassium Level 3.7mEq/L (3.5-5.2) Chloride Level 99mEq/L (97-108) Carbon Dioxide Level 26mmol/L (18-29) Blood Urea Nitrogen 34mg/dL (8-27) Creatinine 0.69mg/dL (0.76-1.27) Estimat Glomerular Filtration Rate 122mL/min (>59) Glucose Level 145mg/dL (60-99) Calcium Level 9.1mg/dL (8.5-10.1) Phosphorus Level 3.0mg/dL (2.5-4.9) Magnesium Level 1.8mg/dL (1.6-2.6) Total Bilirubin 0.3mg/dL (0.0-1.2) Aspartate Amino Transf (AST/SGOT) 25U/L (0-50) Alanine Aminotransferase (ALT/SGPT) 14U/L (0-44) Alkaline Phosphatase 52U/L (25-160) Pro-B-Type Natriuretic Peptide 5151pg/mL (0-376) Total Protein 6.0g/dL (6.4-8.4) Albumin 3.1g/dL (3.4-5.0) Procalcitonin 0.18ng/mL (0.00-0.08) Plan Impression Patient chart reviewed, patient interviewed and anesthestic plan with risks, benefits, and alternatives discussed, and informed consent obtained. ASA Physical Status: ASA5 Plus Emergency (Patient with unstable coronary artery disease resulting in a-fib with RVR, worsening cardiomyopathy, worsening CHF) Anesthetic Plan: GA Bene/Risks/Altern/Consents: Yes (Pt verbally consented but was not in a condition to sign consent) HP Complete Prior to Induction: Yes Other Patient previously had declined intubation and thus was not a candidate for the procedure. He insisted upon extubation at the immediate end of the procedure which was not feasible. When I interviewed him he expressed a willingness to be intubated for the procedure even with the understanding that he would remain intubated post-op. When the tin can laborer staff when to bring the patient down to tin can laborer he was suddenly in RVR with HR to 190's. Amiodarone bolus was given and then repeated in the tin can laborer. Dr Smith present for induction of anesthesia. Chris Xie MD Nov 10, 2016 16:27
[2016-11-10] MEDS ORDERED: IV Premix 1 EACH IV ONE ×2 (16:30→23:19)
[2016-11-10] MEDS ORDERED: Amiodarone 50 mg/mL 3 mL Inj ONE (16:45)
[2016-11-10] MEDS ORDERED: 0.9% Sodium Chloride 50 ML ONE (17:20)
[2016-11-10] MEDS ORDERED: Atropine 1 mg/10 mL (Code) Syringe ONE (17:30)
--- NOTE | 2016-11-10 17:32 | NUR ---
[employer] Operator.. Pt has been angry over NPO status. Has been verbally abusive to staff re not being able to eat. Was seen by cardiology and pt was talked to about going to the cathead operator. Pt was agreeable to go to the cathead operator, consent signed. When approached about need for general anesthesia pt declined this.. pt was again seen by anesthesia and then agreed to it. Prior to leaving for cathead operator, pt was angry about not being able to get up to the bathroom. HR changed from Sinus to Afib with RVR and rates up to the 190's. Dr Park notified, Dr Smith notified and pt was given an amiodorone bolus per cathead operator to be followed by a continuous gtt. Pt taken at 1645 via bed. Glasses removed and are at the bedside.
[2016-11-10] MEDS ORDERED: 0.9% Sodium Chloride 1,000 ML ONE (17:36)
--- NOTE | 2016-11-10 18:55 | PCM.PNMED ---
Subjective Date of Service Nov 10, 2016 Subjective overnight: No acute events noted Today: Patient was tachycardic and hypotensive in the a.m. cardiology was concern for cardiogenic shock. Clem High initially declined further cardiac interventions stating he no longer wanted to live. Further discussion with palliative as well as the primary care team and cardiology the patient consented for further cardiac intervention. Cardiology determined that the patient would have an echo performed and noted irregular results obtained the patient will be taken to the cardiac produce laborer for further percutaneous intervention. Exam Vital Signs Vital Sign - Last Date Time Temp Pulse Resp B/P Pulse Ox O2 Delivery O2 Flow Rate FiO2 11/10/16 03:38 103 19 113/75 95 OxyMask 7.00 11/10/16 02:27 28 11/09/16 23:53 36.5 Intake and Output 11/09/16 11/09/16 11/10/16 Cumulative From/Thru 15:00 23:00 07:00 11/06/16 01:25 - 11/10/16 05:17 Intake Total 50 ml 6218 ml Output Total 500 ml 2200 ml 24473 ml Balance -500 ml -2150 ml -4157 ml Intake Oral 300 ml IV Total 50 ml 5888 ml Tube Irrigant 30 ml Output Urine Total 500 ml 2200 ml 8875 ml Gastric Drainage Total 1500 ml # Bowel Movements 0 Exam General: Obese disheveled man appearing older than stated age, in mild respiratory distress using accessory muscles with an oxymask in place Eyes: PERRLA, anicteric sclera, noninjected conjunctiva HEENT: Normocephalic, atraumatic. External ears without defect. Neck: Short and thick neck supple, Trachea midline, No jugular venous distension. Cardiovascular: Regular rate and rhythm with no murmurs appreciated Pulmonary: Substantially decreased air movement in all lung marlow, however clear to auscultation bilaterally with no crackles, wheezes,. Abdomen: Soft to palpation, nondistended, no organomegaly noted, large umbilical hernia noted likely 20cm Extremities: Lower extremity bilateral erythema and induration and bilateral llanos excoriations . No edema. Left and Right AC line in place. Right femoral cath insertion site non erythematous no active bleeding. onychomycosis bilaterally in LE Neuro: No focal neurologic deficits, patient able to move all extremities Psychiatric: Poor judgment and poor insight, labile mood with aggressive undertones : No Cramer in place IVs and Medications Medications Reviewed: Medications were reviewed in detail Lab and Diagnostics Result Diagram: 11/10/1642911/10/16 043 X-Rays, CTs and MRIs X-RAY CHEST ONE VIEW, PORTABLE IMPRESSION: 1. New endotracheal tube tip approximately 5.5 cm from the manuel. 2. Linear medial opacities compatible with atelectasis or aspiration. 3. Probable mild edema. Dictated and approved by: Jimmy Toledo M.D. on 11/06/2016 at 9:21 X-RAY CHEST ONE VIEW, PORTABLE IMPRESSION: Bibasilar atelectasis versus aspiration or pneumonia. Correlate clinically. Dictated by: Simba Lezama RRA Interpreted: Macarena Oliver MD on 11/09/2016 at 16:57 Transcribed by: SHANNA on 11/09/2016 at 16:57 Approved by: Macarena Oliver MD, PhD on 11/09/2016 at 18:06 12-lead ECG -ECG showed ST elevation in anterior leads V2-V4, repeat ECG showed ST elevation progression with rising troponin levels Additional Diagnostics DIAGNOSTIC CARDIAC CATHETERIZATION FINDINGS: 1. LMCA: The left main coronary artery is intact. 2. LAD: The left anterior descending coronary artery is heavily calcified and initially occluded proximally at the small first septal. When opened, it is a medium-sized transapical vessel with severe diffuse disease in the proximal and mid portions. 3. LCX: The left circumflex coronary artery is a medium-sized vessel. The first OM is a medium-sized branching vessel with 80% lesions. The second OM is a medium-sized vessel with a 70% tubular proximal narrowing. Thereafter the mid LCX is a medium-sized vessel with a 70% proximal lesion. 4. RCA: Dominant. A 90% tubular proximal lesion. The right coronary artery is a large vessel with a large PDA and a large RPLB. 5. LHC: LVED of 20 mmHg; and no systolic gradient across the aortic valve on pullback. Systolic blood pressure 100. CONCLUSIONS: 1. PCI of proximal occluded LAD--Vision BMS--2.5 x 23 mm post dilated to 2.75 mm. 2. ACS--anterior CT with culprit occluded proximal LAD. 3. Coronary artery disease (CAD)--three-vessel disease including occluded proximal LAD; 80% OM 1, 70% mid LCX; and 90% proximal RCA. Kyler Marin MD 11/06/16 0857 . Assessment & Plan Vincent High is a 66 gentleman with past medical history significant for coronary artery disease, hypertension, congestive heart failure, dyslipidemia, and history of non compliance with multiple AGAINST MEDICAL ADVICE discharges admitted for STEMI with stent placement to left anterior descending coronary artery. Patient is unable to lay down at baseline secondary to his chronic lung disease and would only agree to catheterization if he was sedated. Patient intubated and sedated for produce laborer and admitted to ICU for ventilation management. Hospital Day 5 1. STEMI s/p stent placement to LAD. Present on admission. Presumed stable - Continue daily ASA 81mg and Plavix 75 mg daily. Continue atorvastatin 40 mg daily. - Hold home medications as blood pressure continues to be labile. These include : lisinopril 5mg daily, Amilodipine 5mg daily, isosorbide mononitrate ER 30mg daily, metoprolol tartrate 75 mg BID. Consider re-starting slowly. - Cardiology continues to follow the patient and we appreciate their recommendations. - Compliance will be a barrier for this patient - recommend minimal outpatient discharge medications - Morphine available when necessary - Metoprolol IV for tachycardia - Patient will need at least 4 weeks of Plavix 75 mg daily given his bare metal stenting with recommendations to take aspirin daily indefinitely - Patient was taken back to the cardiac produce laborer today no report available as of yet 2. Acute on chronic orthopnea, present on admission - Required mechanical ventilation to tolerate cardiac catheterization secondary to his inability to be cooperative while he lay flat. - Patient required 3 days of mechanical ventilation before being extubated on - Patient was taken to cardiac produce laborer today and likely will return intubated and sedated - Ventilator bundle set with sedation with fentanyl and propofol available post cardiac produce laborer 3. Chronic Obstructive Pulmonary Disease with chronic respiratory failure, present on admission. - Patient uses 2-3 L supplemental O2 in his car. - Continue albuterol neb Q4 PRN and ipratropium Q6 scheduled. - Continue Solu-Medrol 40 mg IV daily - Ventilator bundle with sedation as discussed in #2 4. Systolic Congestive Heart Failure secondary to ischemic cardiomyopathy, present on admission. Ongoing - Patient did not appear to be decompensated at time of admission. - Echo done during this admission showed EF 35-40% which is decreased from prior study. - IV fluids to be TKO. - Lasix given - Metoprolol IV until patient can safely pass a swallow eval - Carvedilol to be initiated as soon as possible - Patient should be on a beta gracie, CHERI inhibitor, spironolactone at discharge 5. Chronic Diabetes Mellitus type 2, present on admission. Ongoing - Hemoglobin A1C 10.3 this admission. - Continue high dose correction scale of regular insulin while patient NPO. - Lantus 10 units HS added overnight. Will plan to continue this and possibly increase based on today's blood glucose. 6. Paroxysmal atrial tachycardia/atrial fibrillation, chronic, not present on admission. - rate control with metoprolol. - Carvedilol to be initiated as soon as medically stable 7. Chronic Hypertension, present on admission, stable. - Patient has been hypotensive and low normotensive during admission. - Start lisinopril and carvedilol as soon as medically stable 8. Chronic hyperlipidemia, present on admission, presumed stable - Continue atorvastatin. 9. Chronic depression, present on admission, stable. - hold sertraline 25 mg daily. 10. Tobacco dependence, chronic, present on admission - Nicotine patch available PRN. 11. Chronic obesity, present on admission, presumed stable. - Recommend weight loss with lifestyle changes. 12. Chronic venous insufficiency, present on admission, stable. - Monitor for signs of infection as the patient also has chronic cellulitis. - Antiemetics available PRN. - Bowel Regimen available PRN. - Nystatin powder available PRN. Disposition: Patient is likely to remain inpatient for several more days will need to be discharged with plans for cardiac rehabilitation. Patient is notoriously noncompliant and homeless and will likely require some social support to make sure he takes his Plavix even for the minimal amount of time. Patient's case and medical management discussed with critical care (Dr. Park). GI Prophylaxis: H2 gracie VTE Prophylaxis: Sub-Q Heparin (Unfractionated), SCDs VTE Mechanical Devices: Intermittant Pneumatic CD Resuscitation Status: CPR: Attempt Resuscitation Time spent Greater than 35 minutes Attending Statement The patient was seen and examined together with Dr. Miller on 11/10/16 and I have added additional information to the note above. Kenrick Ho DO Nov 10, 2016 06:58 aGby Mora DO Nov 13, 2016 13:14
--- NOTE | 2016-11-10 18:59 | PCM.ANEP2 ---
Post Anesthesia Evaluation ASA/CMS Post Anesthesia VS in Patient's Normal Range?: Yes Resp Stable; Airway Patent?: Yes CV Function & Hydration Stable: Yes Mental Status Recovered?: No Pain control Satisfactory?: Yes N/V Control Satisfactory?: Yes Additional Comments intubated and ventilated Wendy Olson MD Nov 10, 2016 18:59
--- NOTE | 2016-11-10 18:59 | PCM.ANEP1 ---
Post Anesthesia Phase 1 PACU Phase 1 Assessment Date of Service: Nov 06, 2016 Vital Signs Vital Signs Date Time Temp Pulse Resp B/P Pulse Ox O2 Delivery O2 Flow Rate FiO2 11/10/16 16:06 36.9 176 22 119/65 91 OxyMask 6.00 11/10/16 15:24 113 24 92 OxyMask 5.00 11/10/16 11:47 109 24 93 OxyMask 5.00 11/10/16 11:30 36.6 101 24 108/70 91 OxyMask 6.00 Anesthetic Administered: GA Level of Alertness: Drowsy, not talking MCLEAN's with Equal Strength: No Pain: No Pain Scale Score: 0 Nausea or Vomiting: No Airway Device: Endotrachial Tube Oxygen Delivery: Mechanical Ventilator Lungs: Clear to Auscultation, Other (tachypneic with low SpO2 on high flow O2. ) Summary dyspneic and noc cooperative preop not candidate for extubaiton post cath transferred to unit intubated and venitalted BP 118/80 hr 105 450 x 14 at 40 percent peep 8 ventilator Wendy Olson MD Nov 10, 2016 18:59
[2016-11-10] MEDS: Propofol Inj 1,000,000 MCG in IV Premix 1 EACH IV SCH ×2 (19:34→22:05)
[2016-11-10] MEDS: fentaNYL 2,500 mCg/250 mL 2,500 MCG in IV Premix 1 EACH IV SCH (19:35)
[2016-11-10] MEDS ORDERED: Atropine 1 mg/10 mL (Code) Syringe IVPUSH PRN (19:45)
[2016-11-10] MEDS ORDERED: Sodium Chloride LOK Flush 10 mL Syringe IVFLUSH PRN (19:45)
[2016-11-10] MEDS ORDERED: 0.9% Sodium Chloride 400 ML (4 HRS) IV ONE (19:45)
[2016-11-10] MEDS ORDERED: Ondansetron 2 mg/mL 2 mL Inj IVPUSH PRN (19:45)
--- NOTE | 2016-11-10 19:47 | DI95 ---
[address] [address] INTERVENTIONAL CARDIAC CATHETERIZATION PATIENT: JULIA LUNA : 1950 MR#: [id number] ADMIT: 11/06/2016 JOB ID: [id number] DATE OF PROCEDURE: 11/10/2016 PATIENT PROFILE: The patient is a 66-year-old male who presented with large anterolateral myocardial infarction four days ago. He became hypotensive and developed congestive heart failure. The patient went into atrial fibrillation with rapid ventricular response around 4 p.m. PROCEDURE: 1. Right heart catheterization. 2. Retrograde left heart catheterization. 3. Balloon angioplasty and stenting to the proximal right coronary artery. 4. Balloon angioplasty and stenting to the first obtuse marginal branch. 5. Left ventricular angiogram. 6. Vascular closure device with Perclose. COMPLICATIONS: None. PROCEDURAL DESCRIPTION: The patient was under general anesthesia provided by Dr. Xie. Vascular access was obtained with arterial sheath on the right groin and venous sheath in the left groin. Right heart catheterization was then performed with a 7-[place] catheter. Cardiac output was determined by the thermodilution technique. Selective coronary angiogram was performed in multiple projections, including cranial and caudal angulations with hand injected contrast via JL4 and JR4 catheters. Heparin 100 units/kg were given. A 6-[place]ayan JR4 guide was advanced to the right coronary ostium. A Run-through wire was placed inside the right coronary artery. The lesion was predilated with a 3.0 x 15 mm balloon. A Resolute Integrity 3.0 x 15 mm stent was placed inside the proximal right coronary artery lesion and deployed at 20 atmospheres for 30 seconds. Final angiogram was obtained. The attention was then turned to the circumflex artery. A 6-[place] JL-5 guide was advanced to the left coronary ostium. A Run-through wire was placed inside the first obtuse marginal branch. The lesion was predilated with a 2.5 x 20 mm balloon. A Resolute Integrity 2.25 x 22 mm stent was placed inside the first obtuse marginal branch lesion and deployed at 15 atmospheres for 30 seconds. Final angiogram was obtained. A 6-[place] angulated pigtail catheter was advanced to the left ventricle and left ventricular angiogram was performed in the 30 degree LIAO view by injecting contrast at the rate of 15 cc/second for 2 seconds. This catheter was withdrawn. Right femoral angiogram was performed before sheath removal. Hemostasis was achieved by using a Perclose device. The patient tolerated the procedure well. He was transferred to intensive care unit in improved condition. TOTAL CONTRAST USED: 100 cc. FLUOROSCOPY TIME: 9.7 minutes. TOTAL RADIATION DOSE: 104 milligray. RESULTS: 1. Mean right atrial pressure is 16 mmHg. Right ventricular pressure is 58/11 mmHg. Pulmonary artery pressure is 56/30 mmHg. 2. Mean pulmonary capillary wedge pressure is 35 mmHg with a V wave of 40 mmHg. 3. Aortic pressure is 103/62 mmHg. Left ventricular pressure is 106/17 mmHg. 4. Left ventricular end-diastolic is 27 mmHg. 5. Cardiac output by the thermodilution technique is 5.6 L/minute with an index of 2.65 L/minute/m2. 6. Arterial oxygen saturation is 99%. Mixed venous saturation is 73%. 7. Left ventricular angiogram demonstrates severely depressed left ventricular systolic function (LVEF 22%). The apical 2/3 of the anterolateral wall, apex, and apical half of the inferior wall are akinetic. The remaining segments are severely hypokinetic. 8. Selective coronary angiogram: a. Left main coronary artery is normal. b. The left anterior descending artery is occluded in the proximal portion within the previous stent. c. The ramus intermedius has minor irregularity. d. The circumflex artery has 60% stenosis in the mid portion. The first obtuse marginal has 70% stenosis in the proximal portion. e. The dominant right coronary artery has 90% stenosis in the proximal portion. 9. Balloon angioplasty and stenting was performed to the proximal right coronary artery lesion by deploying one drug eluting stent to achieve an excellent angiographic result with HAO-III flow distally. 10. Balloon angioplasty and stenting was performed to the severe first obtuse marginal branch lesion by deploying one drug eluting stent to achieve an excellent angiographic result with HAO-III flow distally. CONCLUSION: 1. Moderate pulmonary hypertension. 2. Cardiac index is 2.6 L/minute/m2. 3. Mean pulmonary capillary wedge pressure is 35 mmHg. 4. The left anterior descending artery has re-occluded in the proximal portion. 5. Severe 90% proximal right coronary artery stenosis. This was successfully treated with one drug eluting stent. 6. Severe 70% first obtuse marginal branch stenosis. This was successfully treated with one drug eluting stent. RINA
[2016-11-10] MEDS: 0.9% Sodium Chloride 250 ML BOLUS IV PRN (20:47)
--- NOTE | 2016-11-10 20:53 | DRSVH ---
PROCEDURE: X-RAY CHEST ONE VIEW, PORTABLE ([id number]) INDICATIONS: reintubated TECHNIQUE: One view of the chest was acquired. COMPARISON: [facility], CR, XR CHEST 1VW (PORTABLE), 11/10/2016, 4:57. FINDINGS: Surgical changes and devices: There is an endotracheal tube with the tip approximately 1.5 cm from th e manuel. Lungs and pleura: No pleural effusions or pneumothorax. There are a few linear opacities in the lef t lung base likely representing atelectasis. Mediastinum: Mediastinal contours appear normal. Heart size is normal. Bones and chest wall: No suspicious bony lesions. Overlying soft tissues appear unremarkable. IMPRESSION: 1. Endotracheal tube tip 1.5 cm on the manuel. Recommend withdrawal by approximately 3 cm. Finding s discussed with patient's nurse, Brittnee, on 11/10/16 8:45 p.m. Dictated by: Jimmy Toledo M.D. on 11/10/2016 at 20:38 Approved by: Jimmy Toledo M.D. on 11/10/2016 at 20:51
[2016-11-10] MEDS: Insulin GLARgine 100 Unit/mL Syringe SUBQ SCH (21:00)
[2016-11-10] MEDS ORDERED: Norepinephrine 8,000 mCg/250 mL NS Premix IV ONE (21:32)
[2016-11-10] MEDS: Chlorhexidine 0.12% 15 mL Oral Solution MT SCH (21:34)
[2016-11-10] MEDS ORDERED: Norepineph 8,000 mCg/250 mL NS 8,000 MCG in IV Premix 1 EACH IV SCH (22:02)
--- NOTE | 2016-11-10 23:11 | PROCED ---
[address] [address] PROCEDURE NOTE PATIENT: JULIA LUNA : 1950 MR#: [id number] ADMIT: 11/06/2016 JOB ID: [id number] DATE OF SERVICE: 11/10/2016 POSTOPERATIVE DIAGNOSIS(ES): PREOPERATIVE DIAGNOSIS(ES): SURGEON: Zach Monahan MD PROCEDURE: Change of endotracheal tube due to leak and re-intubation. DESCRIPTION OF PROCEDURE: The patient is experiencing balloon leak and incomplete sealing and requires a change of endotracheal tube. A bougie was obtained and preparations made for intubation with a Salmon blade and suction at the bedside. He was preoxygenated with bag-valve mask at 100%. The bougie was introduced into the existing tube and run into the trachea with the expected cough response. The balloon was let down and the leaking tube was removed over the bougie. The bougie was maintained in place and an fresh tube was placed over the end of the bougie and introduced into the trachea, taking care to avoid damage by the teeth on the way in. The bougie was removed and the placement of the tube confirmed by end-tidal CO2. It was secured at 23 cm at the corner of the mouth. Good end-tidal was confirmed and x-ray is pending at this time. The tube was secured by Respiratory Therapy. He tolerated this well with no complications.
[2016-11-11] VITALS (13 sets, daily range): BP systolic 95–142; BP diastolic 61–94; PULSE 76–98; RESP 18–20; O2SAT 88–96
[2016-11-11] MEDS: Chlorhexidine 0.12% 15 mL Oral Solution MT SCH ×6 (00:09→20:24)
[2016-11-11] MEDS: Heparin 5,000 Unit/mL Inj SUBQ SCH ×3 (00:22→17:32)
[2016-11-11] MEDS: Propofol Inj 1,000,000 MCG in IV Premix 1 EACH IV SCH ×4 (02:13→20:36)
[2016-11-11] MEDS: Insulin Human REGular 300 Unit/3 mL Inj SUBQ SCH ×4 (02:16→21:41)
[2016-11-11 05:22] LABS: BASOPHILS % (AUTO) 0.3 % (0-3); EOSINOPHILS % (AUTO) 2.3 % (0-5); MONOCYTES % (AUTO) 12.8 % (4-12); Mean Corpuscular Volume 88.1 fL (81-100); NEUTROPHILS % (AUTO) 73.9 % (40-74); Platelet Count 255 bil/L (150-400)
--- NOTE | 2016-11-11 05:33 | NUR ---
Hypotension/Respiratory Pt hypotensive with SBP 70's mmhg, titrated down propofol and fentanyl gtt sedation, NS 250 cc x 1 bolus given, notified oncall cardiology regarding hypotension, with new order. PICC placement ordered, consent taken from sister Radha, IV therapy successfully placed PICC, started levo gtt, MAP improved >65. Bilateral groin puncture site, no bleeding, no hematoma. Respiratory Pt has persistent cough leak and not getting enough TV, RT at bedside, notified Hospitalist, ETT replaced with new tube by ED MD via bougie, pcxr done after procedure. secured bilateral soft wrist restraints.
--- NOTE | 2016-11-11 05:39 | ABG ---
DateTimeAnalyzed 05:36:00 -_ pH ____7.362 - 7.350 7.450 pCO2 ___54.1__ -mmHg 35.0 45.0 pO2 ___61.5__ -mmHg 69.0 116 HCO3- ___29.9__ -mmol/L 22.0 26.0 ABE ____3.9__ -mmol/L -2.0 2.0 tHb ___12.2__ -g/dL O2Hb ___89.1__ -% COHb ____1.1__ -% MetHb ____1.0__ -% sO2 ___91.0__ -% 25.0 FIO2 ___50.0__ -% PEEP ____8.0__ -cmH2O Set_RR ___18.0__ -b/min Vt __500.0__ -L Drawn By MK - Date/Time Notified____ 05:39:00 -_ Oxygen Device 1 VENTILATOR - Notified By MK - B 755 -mmHg tO2 ___15.3__ -Vol% Collin test _Positive -
[2016-11-11 05:43] LABS: Magnesium 1.8 mg/dL (1.6-2.6)
[2016-11-11] MEDS: MethylprednisoLONE Sodium Succinate 40 mg/mL Inj IVPUSH SCH (07:50)
[2016-11-11] MEDS: Famotidine Inj 20 MG in IV Premix 1 EACH IV SCH ×2 (07:50→21:30)
[2016-11-11] MEDS: Nystatin 100,000 Unit/Gm 15 Gm Powder TOPICAL SCH ×2 (07:51→21:30)
[2016-11-11] MEDS: Albuterol-Ipratropium 3 mL Inhalation Solution NEB SCH ×5 (07:58→21:02)
[2016-11-11] MEDS ORDERED: Furosemide 10 mg/mL 4 mL Inj IVPUSH ONE (08:40)
--- NOTE | 2016-11-11 08:48 | DRSVH ---
PROCEDURE: X-RAY PICC LINE PLACEMENT BY NURSE ([id number]) INDICATIONS: VENOUS ACCESS NEEDED/PRESSORS COMPARISON: None. FINDINGS: PICC was placed by the intravenous therapy team from the right side. Fluoroscopic spot fi lm demonstrates tip projected over the mid superior vena cava. IMPRESSION: Tip of PICC projected over the mid SVC . Dictated by: Simba Lezama RRA Interpreted: Macarena Oliver MD on 11/11/2016 at 8:47 Transcribed by: SHANNA on 11/11/2016 at 8:48 Approved by: Macarena Oliver MD, PhD on 11/11/2016 at 16:41
--- NOTE | 2016-11-11 08:50 | DRSVH ---
PROCEDURE: X-RAY CHEST ONE VIEW, PORTABLE ([id number]) INDICATIONS: New trachea tube TECHNIQUE: One view of the chest was acquired. COMPARISON: [facility], CR, XR CHEST 1VW (PORTABLE), 11/10/2016, 20:05. FINDINGS: Surgical changes and devices: ETT tip projected 4.3 cm above the manuel. Lungs and pleura: No pleural effusions or pneumothorax. Bibasilar airspace opacities present, left greater than right Mediastinum: Mediastinal contours appear normal. Heart size is normal. Bones and chest wall: No suspicious bony lesions. Overlying soft tissues appear unremarkable. IMPRESSION: Bibasilar atelectasis versus aspiration or pneumonia. Correlate clinically. Dictated by: Simba Lezama RRA Interpreted: Macarena Oliver MD on 11/11/2016 at 8:48 Transcribed by: SHANNA on 11/11/2016 at 8:50 Approved by: Macarena Oliver MD, PhD on 11/11/2016 at 16:41
--- NOTE | 2016-11-11 09:34 | DRSVH ---
PROCEDURE: US VENOUS LEG DUPLEX BILATERAL INDICATIONS: Concern for DVT TECHNIQUE: Real-time imaging, as well as color and pulse Doppler interrogation, were performed of the deep veins of both legs from the inguinal ligament to the popliteal fossa. COMPARISON: None. FINDINGS: The deep veins are normally compressible, and free of intraluminal thrombus. Color and pu lse Doppler demonstrate normal phasic intravascular flow. There is normal augmentation response to d istal compression maneuver. IMPRESSION: No deep venous thrombosis identified within either the left or right lower extremities. Dictated by: Simba Lezama [facility] Interpreted: Macarena Oliver MD on 11/11/2016 at 9:33 Transcribed by: SHANNA on 11/11/2016 at 9:33 Approved by: Macarena Oliver MD, PhD on 11/11/2016 at 16:41
[2016-11-11] MEDS: Albuterol 2.5 mg/3 mL Inhalation Solution NEB PRN (09:50)
--- NOTE | 2016-11-11 09:53 | PROG NOTE ---
[address] [address] PROGRESS NOTE PATIENT: JULIA LUNA : 1950 MR#: [id number] ADMIT: 11/06/2016 JOB ID: [id number] DATE: 11/11/2016 SUBJECTIVE: The patient underwent coronary angiogram yesterday evening, which demonstrates the proximal left anterior descending artery has re-occluded. He had stent placement to the proximal right coronary artery and first obtuse marginal branch. He had moderate pulmonary hypertension with the LVEDP of 35 mmHg. The patient remains intubated this morning. He required Levophed drip to maintain his blood pressure. PHYSICAL EXAMINATION: Temperature is 37.3. Blood pressure is 108/75. Pulse 92. Body weight is 97 kg. Head and face have normal configuration. JVP is elevated. Chest: Normal expansion. Lungs are clear to auscultation anteriorly. Heart: Distant heart sounds. Abdomen: Soft. Bowel sounds absent. Extremities: Multiple ecchymosis. No edema. Neurology: Sedated. IMPRESSION: 1. Cardiogenic shock. 2. Acute combined systolic and diastolic heart failure. 3. Recent large anterolateral myocardial infarction. 4. LVEF 22%. 5. Status post stent to the right coronary artery and first obtuse marginal branch on November 10, 2016. 6. Medical noncompliance. 7. Episode of atrial fibrillation yesterday, converted to sinus rhythm with amiodarone. PLAN: Percutaneous intervention to the re-occlusion of the left anterior descending artery was not performed since there is no myocardium left to be saved in the anterolateral wall territory. I will try to wean off Levophed today. Intravenous furosemide will be given as his lung is congested. 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 I will accept systolic blood pressure above 85 mmHg. Note: Critical care time 35 minutes. MARINAD
[2016-11-11] MEDS: Furosemide 10 mg/mL 4 mL Inj IVPUSH SCH ×2 (10:10→21:30)
--- NOTE | 2016-11-11 10:15 | PCM.PNMED ---
Subjective Date of Service Nov 11, 2016 Subjective Pulmonolgy/ICU Progress Note: Attending Provider Dr. Park. Requesting Provider Dr. Ho. Reason for Consult vent management. 66 year old male with significant cardiac history including multiple NSTEMI's, CAD, CHF and COPD, presented to ED with STEMI and subsequently received bare metal stent placement to LAD. Pt required sedation and intubation prior to procedure secondary to his inability to lay flat on the procedure table secondary to hid COPD/CHF. 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 His previous stent to the LAD was found to be occluded. 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 Episode of atrial fibrillation yesterday, converted to sinus rhythm with amiodarone drip follow by bolus. with amiodarone. Pt was intubated prior to the procedure and was returned to ICU post procedure intubated and sedated. Overnight: Pt developed an air leak in his ET tube and required repeat intubation by ED doctor. His SBP dropped to the 70's requiring NS bolus. PICC line was inserted for vascular access and levophed was titrated to maintain MAP of >65. ROS unable to be obtained, Pt remains intubated and sedated. Exam Vital Signs Vital Sign - Last Date Time Temp Pulse Resp B/P Pulse Ox O2 Delivery O2 Flow Rate FiO2 11/11/16 07:58 86 108/75 92 50 11/11/16 07:33 Ventilator 11/11/16 07:33 37.3 19 11/10/16 16:06 6.00 Intake and Output 11/10/16 11/10/16 11/11/16 Cumulative From/Thru 15:00 23:00 07:00 11/06/16 01:25 - 11/11/16 05:16 Intake Total 1163 ml 7381 ml Output Total 650 ml 500 ml 98888 ml Balance -650 ml 663 ml -4144 ml Intake Oral 300 ml IV Total 1163 ml 7051 ml Tube Irrigant 30 ml Output Urine Total 650 ml 500 ml 48561 ml Gastric Drainage Total 1500 ml # Bowel Movements 0 0 Exam General: Intubated and sedated, lying in hospital bed. Opens eyes to voice. HEENT: Normocephalic, atraumatic. External ears without defect. Pupils equal, round, and reactive to light and accommodation. ET tube in place Neck: No jugular venous distension. Cardiovascular: Tachycardic rate with regular rhythm. no murmurs appreciated Pulmonary: Crackles hear in upper anterior lung marlow bilaterally. Abdomen: Soft to palpation, nondistended. Extremities: Lower extremity bilateral erythema with excoriations. No edema. PICC line in place. Psychiatric: Intubated and Sedated Ventilator settings: Tidal volume 500. Respiratory rate 18. FiO2 0.5. PEEP 8. IV drips and Sedatives: Fentanyl 75mcg/kg/hr. Propofol 35mcg/kg/hr IV lines: PICC line in place I&O Total: in + 7381ml, out - 11,525ml, total - 4,144ml IVs and Medications Medications Reviewed: Medications were reviewed in detail Lab and Diagnostics Result Diagram: 11/11/16 0511/11/16 0510 X-Rays, CTs and MRIs X-RAY CHEST ONE VIEW, PORTABLE IMPRESSION: 1. New endotracheal tube tip approximately 5.5 cm from the manuel. 2. Linear medial opacities compatible with atelectasis or aspiration. 3. Probable mild edema. Dictated and approved by: Jimmy Toledo M.D. on 11/06/2016 at 9:21 X-RAY CHEST ONE VIEW, PORTABLE IMPRESSION: Bibasilar atelectasis versus aspiration or pneumonia. Correlate clinically. Dictated by: Simba Lezama RRA Interpreted: Macarena Oliver MD on 11/09/2016 at 16:57 Transcribed by: SHANNA on 11/09/2016 at 16:57 Approved by: Macarena Oliver MD, PhD on 11/09/2016 at 18:06 X-RAY CHEST ONE VIEW, PORTABLE IMPRESSION: 1. Placement of right PICC otherwise stable position of ETT. 2. Bibasilar airspace opacities unchanged from prior exam. 12-lead ECG -ECG showed ST elevation in anterior leads V2-V4, repeat ECG showed ST elevation progression with rising troponin levels Cardiac Echo Impressions Echocardiogram Report 11/06/2016 Interpretation Summary The left ventricle is borderline dilated. There is akinesis along the apical wall and severe hypokinesis along the anteroseptal wall. There is mild to moderate hypokinesis along the anterior wall. Left ventricular systolic function is moderate to severely reduced. The ejection fraction is estimated to be 35-40%. LVEF has decreased since prior study. Assessment of diastolic parameters indicates a relaxation abnormality of the left ventricle, consistent with normal filling pressures. The right ventricle is normal size. Right ventricular systolic function is mildly reduced. Both atria are mildly dilated. There is no significant valvular heart disease. The aortic root is mildly dilated. Additional Diagnostics DIAGNOSTIC CARDIAC CATHETERIZATION FINDINGS: 1. LMCA: The left main coronary artery is intact. 2. LAD: The left anterior descending coronary artery is heavily calcified and initially occluded proximally at the small first septal. When opened, it is a medium-sized transapical vessel with severe diffuse disease in the proximal and mid portions. 3. LCX: The left circumflex coronary artery is a medium-sized vessel. The first OM is a medium-sized branching vessel with 80% lesions. The second OM is a medium-sized vessel with a 70% tubular proximal narrowing. Thereafter the mid LCX is a medium-sized vessel with a 70% proximal lesion. 4. RCA: Dominant. A 90% tubular proximal lesion. The right coronary artery is a large vessel with a large PDA and a large RPLB. 5. LHC: LVED of 20 mmHg; and no systolic gradient across the aortic valve on pullback. Systolic blood pressure 100. CONCLUSIONS: 1. PCI of proximal occluded LAD--Vision BMS--2.5 x 23 mm post dilated to 2.75 mm. 2. ACS--anterior MA with culprit occluded proximal LAD. 3. Coronary artery disease (CAD)--three-vessel disease including occluded proximal LAD; 80% OM 1, 70% mid LCX; and 90% proximal RCA. Kyler Marin MD 11/06/16 0857 . US VENOUS LEG DUPLEX BILATERAL IMPRESSION: No deep venous thrombosis identified within either the left or right lower extremities. Dictated by: Simba Lezama [facility] Interpreted: Macarena Oliver MD on 11/11/2016 at 9:33 PROCEDURE: 1. Right heart catheterization. 2. Retrograde left heart catheterization. 3. Balloon angioplasty and stenting to the proximal right coronary artery. 4. Balloon angioplasty and stenting to the first obtuse marginal branch. 5. Left ventricular angiogram. 6. Vascular closure device with Perclose. CONCLUSION: 1. Moderate pulmonary hypertension. 2. Cardiac index is 2.6 L/minute per m2. 3. Mean pulmonary capillary wedge pressure is 35 mmHg. 4. The left anterior descending artery has reoccluded in the proximal portion. 5. Severe 90% proximal right coronary artery stenosis. This was successfully treated with one occluding stent. 6. Severe 70% 1st obtuse marginal branch stenosis. This was successfully treated with one occluding stent. Sosa Mejia MD 11/10/16 1472 Assessment & Plan Mr. High is a 66 man with past medical history significant for coronary artery disease, hypertension, congestive heart failure, dyslipidemia, and history of non compliance with multiple AGAINST MEDICAL ADVICE discharges admitted for STEMI with stent placement to left anterior descending coronary artery and subsequent stents place to the right circumplex artery and the first obtuse marginal branch. Patient was once again intubated for the catheterization procedure. Hospital day 6, Ventilator Day 2. 1. Acute on chronic orthopnea, present on admission. - Pt unable to lay supine secondary to his COPD/CHF and required sedation, intubation & mechanical ventilation in order to successfully complete second cardiac catheterization. - Currently intubated and sedated - Oxygenation saturation remains labile. Reported to have desaturated despite an FiO2 of 1.0. currently FiO2 at 0.5 with saturation level of 91%. PEEP increased to 10. - CXR continues to show pulmonary edema and Pt. will continue to receive Lasix as long as his hemodynamic state can support this. 2. Cardiogenic shock s/p 3 vessel stent placement - Bare metal stent to LAD on 11/06/2016. This has occluded. - NATALYA placed to both RCA & 1st obtuse marginal branch on 11/10/2016 - Echo done during this admission 11/06/2016 showed EF 35-40% which is decreased from prior study. ECHO done 11/10/2016 shows EF of 22% - Hold B-Blockers and CCB's - Lasix as in #1 - Levophed 0.01, will continue to wean - Consider addition of CHERI inhibitor 3. Systolic and Diastolic Congestive Heart Failure, present on admission. Ongoing - Patient did not appear to be decompensated at time of admission. - ECHO as in #2 - Hold IV fluids - Pt output total of negative 4,144ml - Lasix as in #1. - Continue to monitor this closely 3. STEMI s/p 3 vessel stent placement as in #1. - Continue ASA 81mg daily and Plavix 75mg daily - Continue atorvastatin 40mg daily - Morphine PRN - Nitropaste PRN 4. Chronic Obstructive Pulmonary Disease with chronic respiratory failure, present on admission. Ongoing - Did not appear to be exacerbated at time of admission. Patient uses 2-3 L supplemental O2 in his car. - Duoneb Q6 - Continue Solu-Medrol 40 mg IV daily 5. Chronic Diabetes Mellitus type 2, present on admission. Ongoing - Hemoglobin A1C 10.3 this admission. - High dose correction scale of regular insulin. - Lantus 10 units HS - Tube feeds started 11/11/2016 6. Paroxysmal atrial tachycardia/atrial fibrillation, chronic, not present on admission. - Rate control and conversion back to sinus rhythm achieved with amiodarone - Cardiology following 7. Chronic Hypertension, present on admission, stable. - Patient has been hypotensive and low normotensive during admission. - Hold home blood medications. - Lasix as in #1 8. Chronic hyperlipidemia, present on admission, presumed stable - Statin as in #3 9. Chronic depression, present on admission, stable. - Continue sertraline 25 mg daily. 10. Tobacco dependence, chronic, present on admission - Nicotine patch available PRN. 11. Chronic obesity, present on admission, presumed stable. - Recommend weight loss with lifestyle changes 12. Chronic venous insufficiency, present on admission, stable. - Monitor for signs of infection as the patient also has chronic cellulitis. - Lower extremity US results pending GI Prophylaxis: H2 gracie VTE Prophylaxis: Sub-Q Heparin (Unfractionated), SCDs VTE Mechanical Devices: Intermittant Pneumatic CD Resuscitation Status: CPR: Attempt Resuscitation Attending Statement I have seen and examined this patient with the resident physician. Vital signs , labs, imaging have been reviewed. I agree with the assessment and plan above. Please refer to my separately dictated progress note for any modifications to above. Felicia Park M.D. Pulmonary and Critical Care medicine Pager [phone] HARINDER PACKER DO Nov 11, 2016 10:15 Felicia Park MD Nov 12, 2016 08:21
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
--- NOTE | 2016-11-11 10:28 | DRSVH ---
PROCEDURE: X-RAY CHEST ONE VIEW, PORTABLE ([id number]) INDICATIONS: CHEST PAIN TECHNIQUE: One view of the chest was acquired. COMPARISON: [facility], CR, XR CHEST 1VW (PORTABLE), 11/10/2016, 21:46. FINDINGS: Surgical changes and devices: ETT tip projected 4.8 cm above the manuel. Right PICC has been placed tip projecting over the upper SVC. Lungs and pleura: No pleural effusions or pneumothorax. Medial bibasilar airspace opacities unchang ed. Mediastinum: Mediastinal contours appear normal. Heart size is normal. Bones and chest wall: No suspicious bony lesions. Overlying soft tissues appear unremarkable. IMPRESSION: 1. Placement of right PICC. 2. Stable position of ETT. 3. Bibasilar airspace opacities unchanged from prior exam. Dictated by: Simba Lezama [facility] Interpreted: Cesar Medeiros MD on 11/11/2016 at 10:27 Transcribed by: NANCY on 11/11/2016 at 10:28 Approved by: Cesar Medeiros M.D. on 11/11/2016 at 12:04
--- NOTE | 2016-11-11 10:37 | PROG NOTE ---
[address] [address] PROGRESS NOTE PATIENT: JULIA LUNA : 1950 MR#: [id number] ADMIT: 11/06/2016 JOB ID: [id number] DATE: 11/11/2016 PULMONARY CRITICAL CARE PROGRESS NOTE: The patient is a 66-year-old homeless man with acute ST-elevation OH and respiratory failure. The patient was seen and evaluated with resident physician, Dr. Avelino Wise. Please refer to his separate detailed note for additional information. INTERVAL HISTORY: He was reintubated yesterday evening electively for cardiac cath with drug-eluting stents placed in right coronary artery and left circumflex. It was also noted that his bare metal stent in the LAD had reoccluded. He is currently intubated, on low-dose vasopressors. REVIEW OF SYSTEMS: Unable to obtain. PHYSICAL EXAMINATION: Vital signs reviewed. He is on FiO2 of 50% and PEEP of 8 cm. General: Intubated, sedated, not responsive. Chest is clear. Poor air movement. Extremities: No cyanosis, clubbing or edema. LABORATORIES: Reviewed. Troponin is 0.77 from November 09 and has not been checked since. Chest x-ray reviewed. Mild pulmonary edema. ET tube in appropriate position. ASSESSMENT AND RECOMMENDATIONS: 1. Acute hypoxic respiratory failure-reintubated on November 10 electively for cardiac cath. 2. Acute ST-elevation OH with multivessel disease. 3. Bare metal stent in LAD placed on November 07 and then reoccluded likely on November 09. 4. Personality disorder with behavioral issues. A 66-year-old homeless man came in with acute ST-elevation OH and underwent bare metal stent placement in the LAD on November 07. He was intubated electively for the procedure and extubated on November 09. He was reintubated yesterday evening for a second cardiac cath with angioplasty and drug-eluting stents placed in the right coronary artery and left circumflex and he remains intubated. He is on significant amount of support from the vent with FiO2 of 50%, PEEP of 8, now increased to 10 cm because of low sats in the 90-91 range. Chest x-ray does not look too bad, but I suspect he has some pulmonary edema and so we gave him some IV Lasix-40 mg. He is on very low-dose vasopressors-norepinephrine at 0.01 mcg that I think is more related to sedation and hopefully will be weaned off today. He did have an episode of rapid atrial fibrillation yesterday evening with heart rate up to 180- 200s which resolved with amiodarone and he is now in sinus tachycardia. Per Dr. Smith in Cardiology, there is apparently nothing else that can be done about the occluded bare metal stent to the LAD. The patient has had symptoms suggestive of angina/OH for the last couple of days most likely because of this event, so we will have to see how this hinders our ability to extubate him and manage him clinically. CRITICAL CARE TIME: 45 minutes.
--- NOTE | 2016-11-11 12:38 | DRSVH ---
PROCEDURE: X-RAY CHEST ONE VIEW, PORTABLE ([id number]) INDICATIONS: OG tube placement confirmation TECHNIQUE: One view of the chest was acquired. COMPARISON: [facility], CR, XR CHEST 1VW (PORTABLE), 11/11/2016, 4:42. [facility], CR, XR CHEST 1VW (PORTABLE), 11/10/2016, 20:05. [facility], CR, XR CHEST 1VW (PORT ABLE), 11/10/2016, 4:57. [facility], CR, XR CHEST 1VW (PORTABLE), 11/06/2016, 8:51. FINDINGS: Surgical changes and devices: Endotracheal tube is again evident that is positioned approximately 3 c m above the level of the manuel. A right-sided PICC line catheter is identified, unchanged and locat ed within the mid to lower superior vena cava. Lungs and pleura: The aeration of the lungs is similar to the prior study. No lobar consolidation, e ffusion, or pneumothorax is evident. There may be mild spurring versus atelectasis within the lung b ases. Mediastinum: Mediastinal contours appear normal. Heart size is normal. There is mild aortic athero sclerosis. Bones and chest wall: No suspicious bony lesions. Overlying soft tissues appear unremarkable. IMPRESSION: 1. Unchanged positioning of the tubes and lines. 2. Aeration of the lungs is similar to the prior study. No new consolidation, effusion, or pneumoth orax. Dictated by: Vignesh Aguilar M.D. on 11/11/2016 at 11:34 Approved by: Vignesh Aguilar M.D. on 11/11/2016 at 11:36
[2016-11-11] MEDS ORDERED: Sodium Chloride LOK Flush 10 mL Syringe IVFLUSH PRN ×2 (14:50)
[2016-11-11] MEDS: Sodium Chloride LOK Flush 10 mL Syringe IVFLUSH SCH (16:30)
--- NOTE | 2016-11-11 17:41 | PCM.PNMED ---
Subjective Date of Service Nov 11, 2016 Subjective overnight: Patient returned from cardiac lab courier with systolic blood pressures in the 70s, on-call refueling ramp attendant was notified and the patient was considered for norepinephrine drip. Propofol and fentanyl sedation were decreased and a peripherally inserted central venous catheter was placed with a norepinephrine drip started and a improved mean arterial pressure with a goal greater than 65. Today: Patient continues to have low oxygen saturation numbers noted in the high 80s within FiO2 of 0.5 and a PEEP of 8. The patient was attempted on a pressure support trial by RT and it was decided that the patient will remain intubated today with hopes of titrating down FiO2 as well as PEEP. Patient's cardiac catheterization was discussed with the refueling ramp attendant who noted significant wall motion abnormality in the distribution of the previously stented and currently occluded left anterior descending coronary artery. Patient's EF continues to deteriorate down to 20% from 35% at admission. Cardiology believes the patient should be considered DNR/DNI with the family discussion prior to extubation. Exam Vital Signs Vital Sign - Last Date Time Temp Pulse Resp B/P Pulse Ox O2 Delivery O2 Flow Rate FiO2 11/11/16 05:31 86 108/75 91 50 11/11/16 04:00 37.3 18 Mechanical Ventilator 11/10/16 16:06 6.00 Intake and Output 11/10/16 11/10/16 11/11/16 Cumulative From/Thru 15:00 23:00 07:00 11/06/16 01:25 - 11/11/16 05:16 Intake Total 1163 ml 7381 ml Output Total 650 ml 500 ml 93958 ml Balance -650 ml 663 ml -4144 ml Intake Oral 300 ml IV Total 1163 ml 7051 ml Tube Irrigant 30 ml Output Urine Total 650 ml 500 ml 96115 ml Gastric Drainage Total 1500 ml # Bowel Movements 0 0 Exam General: Obese disheveled man appearing older than stated age, Intubated and sedated, lying in hospital bed. Eyes: PERRLA, anicteric sclera, noninjected conjunctiva HEENT: Normocephalic, atraumatic. External ears without defect. ET tube in place Neck: Trachea midline, No jugular venous distension noted Cardiovascular: Regular rate and rhythm with no murmurs appreciated Pulmonary: Substantially decreased air movement in all lung marlow, mild coarse breath sounds in the bases on auscultation bilaterally with mild intermittent wheezes Abdomen: Soft to palpation, nondistended, no organomegaly noted, large umbilical hernia noted likely 20cm Extremities: Improving Lower extremity erythema bilaterally and significantly improved healing bilateral llanos excoriations . No edema. Right femoral cath insertion site non erythematous no active bleeding. onychomycosis bilaterally in LE. Neuro: unable to assess intubated and sedated not following commands Psychiatric: unable to assess intubated and sedated not following commands IVs and Medications Medications Reviewed: Medications were reviewed in detail Lab and Diagnostics Result Diagram: 11/11/16 0510 11/11/16 0510 X-Rays, CTs and MRIs X-RAY CHEST ONE VIEW, PORTABLE ([id number]) IMPRESSION: 1. Unchanged positioning of the tubes and lines. 2. Aeration of the lungs is similar to the prior study. No new consolidation, effusion, or pneumothorax. Dictated by: Vignesh Aguilar M.D. on 11/11/2016 at 11:34 Approved by: Vignesh Aguilar M.D. on 11/11/2016 at 11:36 12-lead ECG -ECG at admission showed ST elevation in anterior leads V2-V4, repeat ECG showed ST elevation progression with rising troponin levels Cardiac Echo Impressions Echocardiogram Report 11/06/2016 Interpretation Summary The left ventricle is borderline dilated. There is akinesis along the apical wall and severe hypokinesis along the anteroseptal wall. There is mild to moderate hypokinesis along the anterior wall. Left ventricular systolic function is moderate to severely reduced. The ejection fraction is estimated to be 35-40%. LVEF has decreased since prior study. Assessment of diastolic parameters indicates a relaxation abnormality of the left ventricle, consistent with normal filling pressures. The right ventricle is normal size. Right ventricular systolic function is mildly reduced. Both atria are mildly dilated. There is no significant valvular heart disease. The aortic root is mildly dilated. Reading Physician:PM Additional Diagnostics DIAGNOSTIC CARDIAC CATHETERIZATION FINDINGS: 1. LMCA: The left main coronary artery is intact. 2. LAD: The left anterior descending coronary artery is heavily calcified and initially occluded proximally at the small first septal. When opened, it is a medium-sized transapical vessel with severe diffuse disease in the proximal and mid portions. 3. LCX: The left circumflex coronary artery is a medium-sized vessel. The first OM is a medium-sized branching vessel with 80% lesions. The second OM is a medium-sized vessel with a 70% tubular proximal narrowing. Thereafter the mid LCX is a medium-sized vessel with a 70% proximal lesion. 4. RCA: Dominant. A 90% tubular proximal lesion. The right coronary artery is a large vessel with a large PDA and a large RPLB. 5. LHC: LVED of 20 mmHg; and no systolic gradient across the aortic valve on pullback. Systolic blood pressure 100. CONCLUSIONS: 1. PCI of proximal occluded LAD--Vision BMS--2.5 x 23 mm post dilated to 2.75 mm. 2. ACS--anterior FL with culprit occluded proximal LAD. 3. Coronary artery disease (CAD)--three-vessel disease including occluded proximal LAD; 80% OM 1, 70% mid LCX; and 90% proximal RCA. Kyler Marin MD 11/06/16 0857 INTERVENTIONAL CARDIAC CATHETERIZATION CONCLUSION: 1. Moderate pulmonary hypertension. 2. Cardiac index is 2.6 L/minute per m2. 3. Mean pulmonary capillary wedge pressure is 35 mmHg. 4. The left anterior descending artery has reoccluded in the proximal portion. 5. Severe 90% proximal right coronary artery stenosis. This was successfully treated with one occluding stent. 6. Severe 70% 1st obtuse marginal branch stenosis. This was successfully treated with one occluding stent. Sosa Mejia MD 11/10/16 4179 Assessment & Plan Vincent High is a 66 gentleman with past medical history significant for coronary artery disease, hypertension, congestive heart failure, dyslipidemia, and history of non compliance with multiple AGAINST MEDICAL ADVICE discharges admitted for STEMI with stent placement to left anterior descending coronary artery. Patient is unable to lay down at baseline secondary to his chronic lung disease and would only agree to catheterization if he was sedated. Patient intubated and sedated for lab courier and admitted to ICU for ventilation management. Hospital Day [address] elevation myocardial infarction, Present on admission. Presumed stable - Patient initially stented on day of admission with bare metal stent to left anterior descending coronary artery - Patient taken back to cardiac lab courier 11/10/2016 showed occluded LAD stent with significant notable wall motion abnormality consistent with severe myocardial infarction at admission - 2 drug-eluting stents placed in the proximal right coronary artery and left marginal obtuse - Discussed with refueling ramp attendant Dr. Mejia on 11/11/2016 patient has a poor prognosis given significant myocardial damage likely prior to initial bare metal stenting to LAD - Patient will need at least 1 year of Plavix 75 mg daily given his bare mental stenting with recommendations to take aspirin daily indefinitely - OG tube in place nursing will continue daily ASA 81mg and Plavix 75 mg daily and atorvastatin 40 mg daily through OG - Cardiology continues to follow the patient and we appreciate their recommendations. 2. Cardiogenic shock, not present on admission, stable - Secondary to significant wall motion abnormality with worsening ejection fraction DOWN to 20% from 35% - Patient returned from cardiac catheterization on 11/10/2016 with low blood pressures requiring pressure support - PICC line was placed and the patient was started on a norepinephrine drip - Patient to be weaned from norepinephrine 3. Acute on chronic hypoxic respiratory failure, not present on admission, stable - Patient uses 2-3 L supplemental O2 in his car. - Patient has significant orthopnea at baseline, and requires intubation and mechanical ventilation for cardiac catheterizations - Patient required 3 days of mechanical ventilation after initial cardiac catheterization on November 06 before being extubated on 11/09/2016 - Patient was taken to cardiac lab courier 11/10/2016 - Patient continues to be mildly hypoxic with oxygen saturation in the high 80s while ventilated with an FiO2 of 0.5 and PEEP of 8 - Ventilator bundle set with sedation with fentanyl and propofol available post cardiac lab courier 3. Chronic Obstructive Pulmonary Disease with chronic respiratory failure, present on admission. - Patient will require extubation to oxygen mask and it is unlikely to be receptive to BiPAP mask - Continue albuterol neb PRN and DuoNeb's 4 times a day scheduled. - Continue Solu-Medrol 40 mg IV daily - Ventilator bundle with sedation as discussed in #3 4. Acute on chronic Systolic Congestive Heart Failure secondary to ischemic cardiomyopathy, present on admission. Ongoing - Echo done during this admission showed EF 35-40% which is decreased from prior study. - IV fluids to be TKO. - Lasix 40 mg twice a day - Metoprolol 5 mg IV for tachycardia greater than 120 - Spironolactone 25 mg by mouth through OG 5. Chronic Diabetes Mellitus type 2, present on admission. Ongoing - Hemoglobin A1C 10.3 this admission. - Continue high dose correction scale of regular insulin - Lantus 10 units HS. 6. Paroxysmal atrial tachycardia/atrial fibrillation, chronic, not present on admission. - rate control with metoprolol. 7. Chronic Hypertension, present on admission, stable. - Patient has been hypotensive and low normotensive during admission. - Patient currently requires pressor support with norepinephrine drip will be reevaluated daily 8. Chronic hyperlipidemia, present on admission, presumed stable - Continue atorvastatin. 9. Chronic depression, present on admission, stable. - hold sertraline 25 mg daily. 10. Tobacco dependence, chronic, present on admission - Nicotine patch available PRN. 11. Chronic obesity, present on admission, presumed stable. - Recommend weight loss with lifestyle changes. 12. Chronic venous insufficiency, present on admission, stable. - Monitor for signs of infection as the patient also has chronic cellulitis. - Antiemetics available PRN. - Bowel Regimen available PRN. - Nystatin powder available PRN. Disposition: Patient is likely to remain inpatient for a significantly extended period of time with significant morbidity and mortality associated to primary disease process and will need to be discharged with plans for cardiac rehabilitation. Patients case and medical treatment plan was discussed with Dr. Park Critical care. GI Prophylaxis: H2 gracie VTE Prophylaxis: Sub-Q Heparin (Unfractionated), SCDs VTE Mechanical Devices: Intermittant Pneumatic CD Resuscitation Status: CPR: Attempt Resuscitation Time spent Greater than 35minutes Attending Statement The patient was seen and examined together with Dr. Miller on 11/11/16 and I have added additional information to the note above. Kenrick Ho DO Nov 11, 2016 06:49 Gaby Mora DO Nov 13, 2016 13:06
--- NOTE | 2016-11-11 18:21 | NUR ---
SEDATION/CARDIAC/RESPIRATORY Patient continues to require sedation w/ Propofol at 25 mcg/kg/min and Fentanyl at 50 mcg/hr. He appears comfortable w/ these settings, and awakens w/ stimulation. Tele has been SR/ST in 80s-100s, and blood pressure has been WNL, Levophed gtt is currently on standby, Amiodarone gtt has been discontinued. Plavix and ASA administered via OGT after placement this morning. Patient tolerating current vent settings at 50%FiO2/10 PEEP/18 Rate/500 Vt, does not appear to be in respiratory distress. Will continue to monitor respiratory status overnight, and will attempt SBT in the morning.
[2016-11-11] MEDS: fentaNYL 2,500 mCg/250 mL 2,500 MCG in IV Premix 1 EACH IV SCH (20:23)
[2016-11-11] MEDS: Insulin GLARgine 100 Unit/mL Syringe SUBQ SCH (21:41)
[2016-11-12] VITALS (13 sets, daily range): BP systolic 87–113; BP diastolic 54–74; PULSE 88–105; RESP 14–24; O2SAT 90–94
[2016-11-12] MEDS: Sodium Chloride LOK Flush 10 mL Syringe IVFLUSH SCH ×3 (00:33→16:30)
[2016-11-12] MEDS: Chlorhexidine 0.12% 15 mL Oral Solution MT SCH ×6 (00:33→19:43)
[2016-11-12] MEDS: Propofol Inj 1,000,000 MCG in IV Premix 1 EACH IV SCH ×3 (00:33→14:51)
[2016-11-12] MEDS: Heparin 5,000 Unit/mL Inj SUBQ SCH ×3 (00:41→17:48)
[2016-11-12] MEDS: Insulin Human REGular 300 Unit/3 mL Inj SUBQ SCH ×4 (04:04→19:51)
[2016-11-12 04:19] LABS: Mean Corpuscular Hemoglobin 27.7 pg (27.0-35.0); Mean Corpuscular Volume 86.8 fL (81-100)
--- NOTE | 2016-11-12 04:53 | NUR ---
Respiratory/Cardiac/Nutrition Off levophed gtt, map maintained >65, lasix 40 mg IV, barrett drained with 1100 cc uo Remain on vent support with fio2 0.50/peep 10, sp02 91-93%, no secretion from ett sx, propofol and fentanyl gtt sedation, RASS -3. on trickle feed, tolerating nutrition with minimal residuals.
--- NOTE | 2016-11-12 05:01 | ABG ---
DateTimeAnalyzed 04:56:00 -_ pH ____7.438 - 7.350 7.450 pCO2 ___48.7__ -mmHg 35.0 45.0 pO2 ___56.8__ -mmHg 69.0 116 HCO3- ___32.4__ -mmol/L 22.0 26.0 ABE ____7.4__ -mmol/L -2.0 2.0 tHb ___12.5__ -g/dL O2Hb ___88.9__ -% COHb ____1.1__ -% MetHb ____0.9__ -% sO2 ___90.7__ -% 25.0 FIO2 ___50.0__ -% PEEP ___10.0__ -cmH2O Set_RR ___18.0__ -b/min Vt __500.0__ -L Drawn By MK - Date/Time Notified____ 05:01:00 -_ Spontaneous_RR ___18.0__ -b/min Oxygen Device 1 VENTILATOR - Notified By MK - B 758 -mmHg tO2 ___15.6__ -Vol% Collin test _Positive -
[2016-11-12] MEDS: Albuterol-Ipratropium 3 mL Inhalation Solution NEB SCH ×2 (06:55→11:20)
[2016-11-12] MEDS: MethylprednisoLONE Sodium Succinate 40 mg/mL Inj IVPUSH SCH (07:39)
[2016-11-12] MEDS: Famotidine Inj 20 MG in IV Premix 1 EACH IV SCH ×2 (07:39→19:43)
[2016-11-12] MEDS: Furosemide 10 mg/mL 4 mL Inj IVPUSH SCH ×2 (07:39→19:43)
[2016-11-12] MEDS: Nystatin 100,000 Unit/Gm 15 Gm Powder TOPICAL SCH ×2 (07:41→19:37)
--- NOTE | 2016-11-12 10:00 | DRSVH ---
PROCEDURE: X-RAY CHEST ONE VIEW, PORTABLE ([id number]) INDICATIONS: ventilated TECHNIQUE: One view of the chest was acquired. COMPARISON: [facility], CR, XR CHEST 1VW (PORTABLE), 11/11/2016, 10:42. FINDINGS: Surgical changes and devices: Stable positioning of the ETT, nasogastric tube and right PICC. Lungs and pleura: No pleural effusions or pneumothorax. Lungs are clear. Mediastinum: Mediastinal contours appear normal. Heart size is normal. Bones and chest wall: No suspicious bony lesions. Overlying soft tissues appear unremarkable. IMPRESSION: No acute cardiopulmonary disease. Dictated by: Simba Lezama RRA Interpreted: Macarena Oliver MD on 11/12/2016 at 9:59 Transcribed by: SHANNA on 11/12/2016 at 10:00 Approved by: Macarena Oliver MD, PhD on 11/12/2016 at 16:31
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
--- NOTE | 2016-11-12 11:34 | PROG NOTE ---
[address] [address] PROGRESS NOTE PATIENT: JULIA LUNA : 1950 MR#: [id number] ADMIT: 11/06/2016 JOB ID: [id number] DATE: 11/12/2016 PULMONARY CRITICAL CARE PROGRESS NOTE: The patient is a 66-year-old homeless gentleman admitted with ST-elevation TX and acute respiratory failure. The patient was seen and evaluated with resident physician, Avelino Wise. Please refer to his separate detailed note for additional information. INTERVAL HISTORY: Remains intubated post second cardiac cath on November 10. He is still on 50% FiO2 and PEEP of 10 cm with sats in the low 90s/high 80s. Blood pressure is stable and he diuresed well yesterday. REVIEW OF SYSTEMS: Unable to obtain. PHYSICAL EXAMINATION: Vital signs reviewed. T-max of 37.6, pulse 105, respirations 24, sats are 90 on 50% and 10 cm of PEEP. General: Intubated, sedated. Chest clear to auscultation. LABORATORIES: Reviewed. WBC normal. Procalcitonin is 0.19. Chest x-ray also reviewed and looks pretty clear. Maybe some atelectasis at the right lung base. ET tube in appropriate position. Cultures: No new growth. Arterial blood gas from this morning shows pH of 7.43, pCO2 of 48, pO2 of 56, bicarbonate of 32. ASSESSMENT AND RECOMMENDATIONS: 1. Acute ST elevation myocardial infarction status post bare metal stent in LAD on November 07, drug-eluting stents in RCA and LCX on November 10. 2. Reocclusion of LAD stent. 3. Acute hypoxic respiratory failure-intubated November 07 until November 09, reintubated electively November 10 for second cardiac cath. 4. Personality disorder with behavioral issues. 5. Pulmonary edema. A 66-year-old man who has had recurrent ED visits for chest pain. Finally came in for ST-elevation TX and had a cardiac cath with details as described above, complicated by subsequent stent thrombosis. He remains on significant vent support with sats less than ideal. He did diurese well with Lasix yesterday. I was concerned today because of his persistent hypoxemia that he may be developing an infection but there is no evidence of a white blood cell count elevation, increased secretions or new infiltrate on x-ray to suggest pneumonia. His procalcitonin remains low at 0.19. At this point, we will repeat a dose of Lasix and see if we can wean his PEEP and get him to a pressure support trial. He is on Plavix per Cardiology. He is on appropriate DVT and GI prophylaxis. He is a FULL CODE and he is getting tube feeding. Please note that the patient indicated he would not want to be intubated for prolonged or indefinite period of time. We had agreed to a seven day trial of intubation. CRITICAL CARE TIME: 45 minutes.
--- NOTE | 2016-11-12 12:06 | PROG NOTE ---
[address] [address] PROGRESS NOTE PATIENT: JULIA LUNA : 1950 MR#: [id number] ADMIT: 11/06/2016 JOB ID: [id number] DATE: 11/12/2016 PROGRESS NOTE: The patient remains intubated and mechanically ventilated. Levophed was discontinued yesterday. OBJECTIVE: Temperature is 37.6. Blood pressure is 87/61. Pulse 98. Body weight is 97 kg. Intake and output is -2,800 mL yesterday. He is unresponsive. Lungs are clear to auscultation anteriorly. Heart: Distant heart sounds. Abdomen is soft. Bowel sounds absent. Extremities: Multiple ecchymosis. No edema. IMPRESSION: 1. Acute combined systolic and diastolic heart failure. 2. Recent large anterolateral myocardial infarction. 3. Left ventricular ejection fraction of 22%. 4. Status post stent to the right coronary artery and first obtuse marginal branch on November 10, 2016. 5. Medical noncompliance. 6. Episode of atrial fibrillation on November 10, 2016, converted to sinus rhythm with amiodarone. PLAN: I will continue to diurese him with intravenous furosemide. His chest x-ray shows less congestion when compared with yesterday. 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 He might be able to wean from mechanical ventilation, possibly start weaning tomorrow. Note: Critical care time 25 minutes. MTDD
--- NOTE | 2016-11-12 12:14 | PCM.PNMED ---
Subjective Date of Service Nov 12, 2016 Subjective Pulmonolgy/ICU Progress Note: Attending Provider Dr. Park. Requesting Provider Dr. Ho. Reason for Consult vent management. 66 year old male with significant cardiac history including multiple NSTEMI's, CAD, CHF and COPD, presented to ED with STEMI and subsequently received bare metal stent placement to LAD. Pt required sedation and intubation prior to procedure secondary to his inability to lay flat on the procedure table secondary to hid COPD/CHF. Overnight: Pt was able to be weaned off Levophed, maintained MEP greater than 65. Lasix 40 mg given with resultant 110 0 mL of urine output. Propofol had to be increased secondary to patient agitation. ROS unable to be obtained, Pt remains intubated and sedated. Exam Vital Signs Vital Sign - Last Date Time Temp Pulse Resp B/P Pulse Ox O2 Delivery O2 Flow Rate FiO2 11/12/16 07:25 37.6 105 24 111/72 90 Mechanical Ventilator 50 11/10/16 16:06 6.00 Intake and Output 11/11/16 11/11/16 11/12/16 Cumulative From/Thru 15:00 23:00 07:00 11/06/16 01:25 - 11/11/16 17:53 Intake Total 651 ml 8032 ml Output Total 1675 ml 69285 ml Balance -1024 ml -5168 ml Intake Oral 300 ml IV Total 568 ml 7619 ml Tube Feeding 43 ml 43 ml Tube Irrigant 40 ml 70 ml Output Urine Total 1675 ml 09443 ml Gastric Drainage Total 1500 ml # Bowel Movements 0 0 Exam General: Intubated and sedated, lying in hospital bed. Does not open eyes to voice secondary to sedation HEENT: Normocephalic, atraumatic. ET tube in place Neck: No jugular venous distension. Cardiovascular: Tachycardic rate with regular rhythm. no murmurs appreciated Pulmonary: Crackles heard in right upper anterior lung field. Abdomen: Soft to palpation, nondistended. Extremities: Lower extremity bilateral erythema with excoriations. No edema. Psychiatric: Intubated and Sedated Ventilator settings: Tidal volume 500. Respiratory rate 14. FiO2 0.5. PEEP 10. IV drips and Sedatives: Fentanyl 50mcg/kg/hr. Propofol 30mcg/kg/hr IV lines: PICC line in place I&O Total: in + 8032 ml, out - 13,200 ml, total - 5,168 ml Lab and Diagnostics Result Diagram: 11/12/16 04011/12/16 0400 X-Rays, CTs and MRIs X-RAY CHEST ONE VIEW, PORTABLE ([id number]) IMPRESSION: 1. Unchanged positioning of the tubes and lines. 2. Aeration of the lungs is similar to the prior study. No new consolidation, effusion, or pneumothorax. Dictated by: Vignesh Aguilar M.D. on 11/11/2016 at 11:34 Approved by: Vignesh Aguilar M.D. on 11/11/2016 at 11:36 12-lead ECG -ECG at admission showed ST elevation in anterior leads V2-V4, repeat ECG showed ST elevation progression with rising troponin levels Cardiac Echo Impressions Echocardiogram Report 11/06/2016 Interpretation Summary The left ventricle is borderline dilated. There is akinesis along the apical wall and severe hypokinesis along the anteroseptal wall. There is mild to moderate hypokinesis along the anterior wall. Left ventricular systolic function is moderate to severely reduced. The ejection fraction is estimated to be 35-40%. LVEF has decreased since prior study. Assessment of diastolic parameters indicates a relaxation abnormality of the left ventricle, consistent with normal filling pressures. The right ventricle is normal size. Right ventricular systolic function is mildly reduced. Both atria are mildly dilated. There is no significant valvular heart disease. The aortic root is mildly dilated. Reading Physician:PM Additional Diagnostics DIAGNOSTIC CARDIAC CATHETERIZATION FINDINGS: 1. LMCA: The left main coronary artery is intact. 2. LAD: The left anterior descending coronary artery is heavily calcified and initially occluded proximally at the small first septal. When opened, it is a medium-sized transapical vessel with severe diffuse disease in the proximal and mid portions. 3. LCX: The left circumflex coronary artery is a medium-sized vessel. The first OM is a medium-sized branching vessel with 80% lesions. The second OM is a medium-sized vessel with a 70% tubular proximal narrowing. Thereafter the mid LCX is a medium-sized vessel with a 70% proximal lesion. 4. RCA: Dominant. A 90% tubular proximal lesion. The right coronary artery is a large vessel with a large PDA and a large RPLB. 5. LHC: LVED of 20 mmHg; and no systolic gradient across the aortic valve on pullback. Systolic blood pressure 100. CONCLUSIONS: 1. PCI of proximal occluded LAD--Vision BMS--2.5 x 23 mm post dilated to 2.75 mm. 2. ACS--anterior SC with culprit occluded proximal LAD. 3. Coronary artery disease (CAD)--three-vessel disease including occluded proximal LAD; 80% OM 1, 70% mid LCX; and 90% proximal RCA. Kyler Marin MD 11/06/16 0857 INTERVENTIONAL CARDIAC CATHETERIZATION CONCLUSION: 1. Moderate pulmonary hypertension. 2. Cardiac index is 2.6 L/minute per m2. 3. Mean pulmonary capillary wedge pressure is 35 mmHg. 4. The left anterior descending artery has reoccluded in the proximal portion. 5. Severe 90% proximal right coronary artery stenosis. This was successfully treated with one occluding stent. 6. Severe 70% 1st obtuse marginal branch stenosis. This was successfully treated with one occluding stent. Sosa Mejia MD 11/10/16 8200 Assessment & Plan Mr. High is a 66 man with past medical history significant for coronary artery disease, hypertension, congestive heart failure, dyslipidemia, and history of non compliance with multiple AGAINST MEDICAL ADVICE discharges admitted for STEMI with stent placement to left anterior descending coronary artery and subsequent stents place to the right circumplex artery and the first obtuse marginal branch. Patient was once again intubated for the catheterization procedure. Hospital day 7, Ventilator Day 3. 1. Acute on chronic orthopnea, present on admission. - Pt unable to lay supine secondary to his COPD/CHF and required sedation, intubation & mechanical ventilation in order to successfully complete second cardiac catheterization. - Currently intubated and sedated - Oxygenation saturation remains labile. Reported to have desaturated despite an FiO2 of 1.0. currently FiO2 at 0.5 with saturation level of 91%. PEEP increased to 10. RR has been decreased to 14 - CXR continues to show pulmonary edema and Pt. will continue to receive Lasix as long as his hemodynamic state can support this. 2. Cardiogenic shock s/p 3 vessel stent placement - Bare metal stent to LAD on 11/06/2016. This has occluded. - NATALYA placed to both RCA & 1st obtuse marginal branch on 11/10/2016 - Echo done during this admission 11/06/2016 showed EF 35-40% which is decreased from prior study. ECHO done 11/10/2016 shows EF of 22% - Hold B-Blockers and CCB's - Lasix as in #1 - Levophed discontinued - Consider addition of CHERI inhibitor in hemodynamics will support this 3. Systolic and Diastolic Congestive Heart Failure, present on admission. Ongoing - Patient did not appear to be decompensated at time of admission - ECHO as in #2 - Hold IV fluids - Pt output total of negative 5,168ml - Lasix as in #1 - Continue to monitor this closely 3. STEMI s/p 3 vessel stent placement as in #2 - Continue ASA 81mg daily and Plavix 75mg daily - Continue atorvastatin 40mg daily 4. Chronic Obstructive Pulmonary Disease with chronic respiratory failure, present on admission. Ongoing - Did not appear to be exacerbated at time of admission. Patient uses 2-3 L supplemental O2 in his car - Levalbuterol Q4 schedule - Continue Solu-Medrol 40 mg IV daily 5. Chronic Diabetes Mellitus type 2, present on admission. Ongoing - Hemoglobin A1C 10.3 this admission - High dose correction scale of regular insulin - Lantus 10 units HS - Tube feeds started 11/11/2016 6. Paroxysmal atrial tachycardia/atrial fibrillation, chronic, not present on admission - Rate control and conversion back to sinus rhythm achieved with amiodarone - No longer on any rate controller medications - Cardiology following 7. Chronic Hypertension, present on admission, stable - Patient has been hypotensive and low normotensive during admission - Hold home blood medications - Lasix as in #1 8. Chronic hyperlipidemia, present on admission, presumed stable - Statin as in #3 9. Chronic depression, present on admission, stable - Continue sertraline 25 mg daily 10. Tobacco dependence, chronic, present on admission - Nicotine patch available PRN 11. Chronic obesity, present on admission, presumed stable - Recommend weight loss with lifestyle changes 12. Chronic venous insufficiency, present on admission, stable - Monitor for signs of infection as the patient also has chronic cellulitis - Lower extremity US results pending GI Prophylaxis: H2 gracie VTE Prophylaxis: Sub-Q Heparin (Unfractionated), SCDs VTE Mechanical Devices: Intermittant Pneumatic CD Resuscitation Status: CPR: Attempt Resuscitation Attending Statement I have seen and examined this patient with the resident physician. Vital signs , labs, imaging have been reviewed. I agree with the assessment and plan above. Please refer to my separately dictated progress note for any modifications to above. Felicia Park M.D. Pulmonary and Critical Care medicine Pager [phone] HARINDER PACKER DO Nov 12, 2016 09:42 Felicia Park MD Nov 13, 2016 13:44
[2016-11-12] MEDS: Levalbuterol 1.25 mg/0.5mL Inhalation Solution NEB SCH ×3 (12:30→20:55)
--- NOTE | 2016-11-12 13:35 | PCM.PNMED ---
Subjective Date of Service Nov 12, 2016 Subjective overnight: Patient was able to be titrated off the norepinephrine drip with maps maintained above 65 mmHg while on both propofol and fentanyl. Today: The patient continues to require increased ventilation support compared to the patient's intubation at the start of this admission. RT will continue to try and titrate down FiO2 from 0.5. We will continue with pressure support trials to assess extubation in the near future. Pulmonology recommends looking for possible pneumonia which would explain the increased oxygen requirements during this intubation. RT to send ET tube sputum for culture. Exam Vital Signs Vital Sign - Last Date Time Temp Pulse Resp B/P Pulse Ox O2 Delivery O2 Flow Rate FiO2 11/12/16 05:06 101 113/74 92 50 11/12/16 04:00 37.0 18 Mechanical Ventilator 11/10/16 16:06 6.00 Intake and Output 11/11/16 11/11/16 11/12/16 Cumulative From/Thru 15:00 23:00 07:00 11/06/16 01:25 - 11/11/16 17:53 Intake Total 651 ml 8032 ml Output Total 1675 ml 05876 ml Balance -1024 ml -5168 ml Intake Oral 300 ml IV Total 568 ml 7619 ml Tube Feeding 43 ml 43 ml Tube Irrigant 40 ml 70 ml Output Urine Total 1675 ml 40642 ml Gastric Drainage Total 1500 ml # Bowel Movements 0 0 Exam General: Obese disheveled man appearing older than stated age, Intubated and sedated, lying in hospital bed. Eyes: PERRLA, anicteric sclera, noninjected conjunctiva HEENT: Normocephalic, atraumatic. External ears without defect. ET tube in place Neck: Trachea midline, No jugular venous distension noted Cardiovascular: Regular rate and rhythm with no murmurs appreciated Pulmonary: Substantially decreased air movement in all lung marlow, mild coarse breath sounds in the bases on auscultation bilaterally with mild intermittent wheezes Abdomen: Soft to palpation, nondistended, no organomegaly noted, large umbilical hernia noted likely 20cm Extremities: Improving Lower extremity erythema bilaterally and significantly improved healing bilateral llanos excoriations . No edema. Right femoral cath insertion site non erythematous no active bleeding. Right upper extremity PICC line placement. Onychomycosis bilaterally in LE. Neuro: unable to assess intubated and sedated not following commands Psychiatric: unable to assess intubated and sedated not following commands IVs and Medications Medications Reviewed: Medications were reviewed in detail Lab and Diagnostics Result Diagram: 11/12/1639911/12/16399 X-Rays, CTs and MRIs X-RAY CHEST ONE VIEW, PORTABLE ([id number]) IMPRESSION: 1. Unchanged positioning of the tubes and lines. 2. Aeration of the lungs is similar to the prior study. No new consolidation, effusion, or pneumothorax. Dictated by: Vignesh Aguilar M.D. on 11/11/2016 at 11:34 Approved by: Vignesh Aguilar M.D. on 11/11/2016 at 11:36 12-lead ECG -ECG at admission showed ST elevation in anterior leads V2-V4, repeat ECG showed ST elevation progression with rising troponin levels Cardiac Echo Impressions Echocardiogram Report 11/06/2016 Interpretation Summary The left ventricle is borderline dilated. There is akinesis along the apical wall and severe hypokinesis along the anteroseptal wall. There is mild to moderate hypokinesis along the anterior wall. Left ventricular systolic function is moderate to severely reduced. The ejection fraction is estimated to be 35-40%. LVEF has decreased since prior study. Assessment of diastolic parameters indicates a relaxation abnormality of the left ventricle, consistent with normal filling pressures. The right ventricle is normal size. Right ventricular systolic function is mildly reduced. Both atria are mildly dilated. There is no significant valvular heart disease. The aortic root is mildly dilated. Reading Physician:PM Additional Diagnostics DIAGNOSTIC CARDIAC CATHETERIZATION FINDINGS: 1. LMCA: The left main coronary artery is intact. 2. LAD: The left anterior descending coronary artery is heavily calcified and initially occluded proximally at the small first septal. When opened, it is a medium-sized transapical vessel with severe diffuse disease in the proximal and mid portions. 3. LCX: The left circumflex coronary artery is a medium-sized vessel. The first OM is a medium-sized branching vessel with 80% lesions. The second OM is a medium-sized vessel with a 70% tubular proximal narrowing. Thereafter the mid LCX is a medium-sized vessel with a 70% proximal lesion. 4. RCA: Dominant. A 90% tubular proximal lesion. The right coronary artery is a large vessel with a large PDA and a large RPLB. 5. LHC: LVED of 20 mmHg; and no systolic gradient across the aortic valve on pullback. Systolic blood pressure 100. CONCLUSIONS: 1. PCI of proximal occluded LAD--Vision BMS--2.5 x 23 mm post dilated to 2.75 mm. 2. ACS--anterior VA with culprit occluded proximal LAD. 3. Coronary artery disease (CAD)--three-vessel disease including occluded proximal LAD; 80% OM 1, 70% mid LCX; and 90% proximal RCA. Kyler Marin MD 11/06/16 0857 INTERVENTIONAL CARDIAC CATHETERIZATION CONCLUSION: 1. Moderate pulmonary hypertension. 2. Cardiac index is 2.6 L/minute per m2. 3. Mean pulmonary capillary wedge pressure is 35 mmHg. 4. The left anterior descending artery has reoccluded in the proximal portion. 5. Severe 90% proximal right coronary artery stenosis. This was successfully treated with one occluding stent. 6. Severe 70% 1st obtuse marginal branch stenosis. This was successfully treated with one occluding stent. Sosa Mejia MD 11/10/16 1829 Assessment & Plan Vincent High is a 66 gentleman with past medical history significant for coronary artery disease, hypertension, congestive heart failure, dyslipidemia, and history of non compliance with multiple AGAINST MEDICAL ADVICE discharges admitted for STEMI with stent placement to left anterior descending coronary artery. Patient is unable to lay down at baseline secondary to his chronic lung disease and would only agree to catheterization if he was sedated. 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 Hospital Day [address] elevation myocardial infarction, Present on admission. Presumed stable - Patient initially stented on day of admission with bare metal stent to left anterior descending coronary artery - Patient taken back to cardiac general labor forklift operator 11/10/2016 showed occluded LAD stent with significant notable wall motion abnormality consistent with severe myocardial infarction at admission - 2 drug-eluting stents placed in the proximal right coronary artery and left marginal obtuse - Discussed with skin pass operator Dr. Mejia on 11/11/2016 patient has a poor prognosis given significant myocardial damage likely prior to initial bare metal stenting to LAD - Patient will need at least 1 year of Plavix 75 mg daily given his bare metal stenting with recommendations to take aspirin daily indefinitely - OG tube in place nursing will continue daily ASA 81mg and Plavix 75 mg daily and atorvastatin 40 mg daily through OG - Cardiology continues to follow the patient and we appreciate their recommendations. 2. Cardiogenic shock, not present on admission, stable - Secondary to significant wall motion abnormality with worsening ejection fraction DOWN to 20% from 35% - Patient returned from cardiac catheterization on 11/10/2016 with low blood pressures requiring pressure support - PICC line was placed and the patient was started on a norepinephrine drip - Patient weaned from norepinephrine on 11/12 3. Acute on chronic hypoxic respiratory failure, not present on admission, stable - Patient uses 2-3 L supplemental O2 in his car. - Patient has significant orthopnea at baseline, and requires intubation and mechanical ventilation for cardiac catheterizations - Patient required 3 days of mechanical ventilation after initial cardiac catheterization on November 06 before being extubated on 11/09/2016 - Patient was taken to cardiac general labor forklift operator 11/10/2016 - Patient continues to be mildly hypoxic with oxygen saturation in the high 80s while ventilated with an FiO2 of 0.5 and PEEP of 8 - Ventilator bundle set with sedation with fentanyl and propofol available post cardiac general labor forklift operator - Sputum sent for culture on the both the on the . 3. Chronic Obstructive Pulmonary Disease with chronic respiratory failure, present on admission. - Did not appear to be having exacerbation at time of admission. Patient uses 2 -3 L supplemental O2 in his car. - Patient will require extubation to oxygen mask and it is unlikely to be receptive to BiPAP mask - Continue albuterol neb PRN and DuoNeb's 4 times a day scheduled. - Continue Solu-Medrol 40 mg IV daily - Ventilator bundle with sedation as discussed in #3 4. Acute on chronic Systolic Congestive Heart Failure secondary to ischemic cardiomyopathy, present on admission. Ongoing - Patient did not appear to be decompensated at time of admission. - Echo done during this admission showed EF 35-40% which is decreased from prior study however repeat echo shows patient's EF is now decreased to 20%. - IV fluids to be TKO. - Lasix 40 mg twice a day - Metoprolol 5 mg IV for tachycardia greater than 120 - Spironolactone 25 mg by mouth through OG - Captopril low-dose 3 times a day scheduled by cardiology - Carvedilol has been discontinued at this time 5. Chronic Diabetes Mellitus type 2, present on admission. Ongoing - Hemoglobin A1C 10.3 this admission. - Patient currently receiving tube feeds - Continue high dose correction scale of regular insulin - Lantus 10 units HS. 6. Paroxysmal atrial tachycardia/atrial fibrillation, chronic, not present on admission. - rate control with metoprolol. 7. Chronic Hypertension, present on admission, stable. - Patient has been hypotensive and low normotensive during admission. - Patient currently requires pressor support with norepinephrine drip will be reevaluated daily 8. Chronic hyperlipidemia, present on admission, presumed stable - Continue atorvastatin. 9. Chronic depression, present on admission, stable. - hold sertraline 25 mg daily. 10. Tobacco dependence, chronic, present on admission - Nicotine patch available PRN. 11. Chronic obesity, present on admission, presumed stable. - Recommend weight loss with lifestyle changes. 12. Chronic venous insufficiency, present on admission, stable. - Monitor for signs of infection as the patient also has chronic cellulitis. - Antiemetics available PRN. - Bowel Regimen available PRN. - Nystatin powder available PRN. Disposition: Patient is likely to remain inpatient for a significantly extended period of time with significant morbidity and mortality associated to primary disease process and will need to be discharged with plans for cardiac rehabilitation. Patient's case and medical management discussed with critical care (Dr. Park). GI Prophylaxis: H2 gracie VTE Prophylaxis: Sub-Q Heparin (Unfractionated), SCDs VTE Mechanical Devices: Intermittant Pneumatic CD Resuscitation Status: CPR: Attempt Resuscitation Time spent Greater than 35 minutes Attending Statement The patient was seen and examined together with Dr. Miller on 11/12/2016 and I have added additional information to the note above. Kenrick Ho DO Nov 12, 2016 06:43 Gaby Mora DO Nov 13, 2016 13:29
--- NOTE | 2016-11-12 18:13 | NUR ---
SEDATION/VENTILATOR/HEMODYNAMICS Patient continues to be sedated w/ Propofol at 27 mcg/kg/min and Fentanyl at 30 mcg/hr. He appears to be tolerating these settings well, able to awaken w/ stimulation. Current ventilator settings are 50% FiO2/10 PEEP/14 Rate/500 Vt, which patient is tolerating well, overbreathing the vent, as desired. SpO2 between 88 and 94% on these settings. Levophed not required today, although BPs are borderline low in 80s-90s/40s-50s, Propofol titrated down when patient is hypotensive. Will continue to monitor vitals, sedation needs and respiratory status.
[2016-11-12] MEDS: fentaNYL 2,500 mCg/250 mL 2,500 MCG in IV Premix 1 EACH IV SCH (19:43)
[2016-11-12] MEDS: Insulin GLARgine 100 Unit/mL Syringe SUBQ SCH (19:50)
[2016-11-13] VITALS (10 sets, daily range): BP systolic 92–109; BP diastolic 59–74; PULSE 94–100; RESP 18–24; O2SAT 88–95
[2016-11-13] MEDS: Chlorhexidine 0.12% 15 mL Oral Solution MT SCH ×6 (00:08→20:22)
[2016-11-13] MEDS: Heparin 5,000 Unit/mL Inj SUBQ SCH ×3 (00:08→16:05)
[2016-11-13] MEDS: Sodium Chloride LOK Flush 10 mL Syringe IVFLUSH SCH ×3 (00:13→16:05)
[2016-11-13] MEDS: Levalbuterol 1.25 mg/0.5mL Inhalation Solution NEB SCH ×6 (00:38→20:00)
[2016-11-13] MEDS: Propofol Inj 1,000,000 MCG in IV Premix 1 EACH IV SCH ×5 (00:47→20:42)
[2016-11-13] MEDS: Insulin Human REGular 300 Unit/3 mL Inj SUBQ SCH ×4 (02:35→20:30)
[2016-11-13 05:08] LABS: Mean Corpuscular Hemoglobin 27.6 pg (27.0-35.0); Mean Corpuscular Volume 87.4 fL (81-100)
--- NOTE | 2016-11-13 05:34 | NUR ---
Respiratory Pt desats to 84% when turned to right side, fio2 on vent increased from 0.50 to 0.60, 02sats improved to 92-93%, thick secretions from ETT and oral suctions, suctioned prn. Fentanyl and propofol gtt sedation, RASS -2 Tolerating TF with minimal residuals via OGT.
--- NOTE | 2016-11-13 05:34 | ABG ---
DateTimeAnalyzed 05:31:00 -_ pH ____7.444 - 7.350 7.450 pCO2 ___51.0__ -mmHg 35.0 45.0 pO2 ___66.7__ -mmHg 69.0 116 HCO3- ___34.4__ -mmol/L 22.0 26.0 ABE ____9.2__ -mmol/L -2.0 2.0 tHb ___12.4__ -g/dL O2Hb ___92.1__ -% COHb ____1.0__ -% MetHb ____0.9__ -% sO2 ___93.9__ -% 25.0 FIO2 ___60.0__ -% PEEP ___10.0__ -cmH2O Set_RR ___14.0__ -b/min Vt __500.0__ -L Drawn By MK - Date/Time Notified____ 05:34:00 -_ Spontaneous_RR ___14.0__ -b/min Oxygen Device 1 VENTILATOR - Notified By MK - B 767 -mmHg tO2 ___16.1__ -Vol% Collin test _Positive -
[2016-11-13] MEDS: Famotidine Inj 20 MG in IV Premix 1 EACH IV SCH ×2 (07:16→21:47)
[2016-11-13] MEDS: Furosemide 10 mg/mL 4 mL Inj IVPUSH SCH (07:24)
[2016-11-13] MEDS: MethylprednisoLONE Sodium Succinate 40 mg/mL Inj IVPUSH SCH (07:24)
[2016-11-13] MEDS: Nystatin 100,000 Unit/Gm 15 Gm Powder TOPICAL SCH ×2 (07:29→20:23)
[2016-11-13] MEDS: Polyethylene Glycol (PEG) 17 Gm Powder PO PRN (07:31)
--- NOTE | 2016-11-13 09:16 | DRSVH ---
PROCEDURE: X-RAY CHEST ONE VIEW, PORTABLE ([id number]) INDICATIONS: Vent TECHNIQUE: One view of the chest was acquired. COMPARISON: [facility], CR, XR CHEST 1VW (PORTABLE), 11/12/2016, 4:40. FINDINGS: Surgical changes and devices: ETT tip projected 3.8 cm above the manuel. Stable positioning of right PICC. Lungs and pleura: No pleural effusions or pneumothorax. Streaky bibasilar opacities are present, ot herwise lungs are clear Mediastinum: Mediastinal contours appear normal. Heart size is normal. Bones and chest wall: No suspicious bony lesions. Overlying soft tissues appear unremarkable. IMPRESSION: Bibasilar atelectasis versus aspiration or pneumonia. Correlate clinically. Dictated by: Simba Lezama [facility] Interpreted: Macarena Oliver MD on 11/13/2016 at 9:15 Transcribed by: SHANNA on 11/13/2016 at 9:16 Approved by: Macarena Oliver MD, PhD on 11/13/2016 at 16:35
--- NOTE | 2016-11-13 09:36 | NUR ---
Falls risk not completed in [facility]. Pt is intubated, sedated and restrained. No particular risk for falls at this time.
--- NOTE | 2016-11-13 11:06 | NUR ---
Social Work: Continued Discharge Planning Data/Assessment: Pt discussed in am rounds. Pt on day 4 of mechanical ventilation. Pt underwent 2nd heart cath on 11/10. Per pulmonology notes from Dr. Park and Dr. Wise, pt was agreeable to re-intubation however did not want prolonged ventilation and agreed that he only wished for ventilation for a maximum of seven days. Pt still intubated and requiring increased vent settings. ICU team will follow pt's progress over the weekend and will determine if pt is able to be extubated prior to WednesdayNovember 16 (day 7 of vent). Plan: Case management to continue to follow pt's clinical course and assist as requested by ICU team. SURESH Wisdom
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
--- NOTE | 2016-11-13 12:57 | PROG NOTE ---
[address] [address] PROGRESS NOTE PATIENT: JULIA LUNA : 1950 MR#: [id number] ADMIT: 11/06/2016 JOB ID: [id number] DATE: 11/13/2016 CHIEF COMPLAINT: I am following this patient who came in initially with an ST-elevation NE with findings of a cardiomyopathy, now status post stents to the circ and right coronary artery as well with recent subacute stent thrombosis of the stent placed in the left anterior descending artery. The patient has remained intubated and sedated. There is concerned they may have a ventilator-associated pneumonia, as his oxygen requirements are going up. He was on a small dose of Captopril which was being considered to be stopped. However, this has continued, and he has maintained a reasonable blood pressure despite sedation. CURRENT PROBLEM LIST: 1. ST-elevation NE with stent to the LAD. 2. Subacute thrombosis of the LAD stent. 3. Additional stenting of the circumflex and right coronary arteries with drug-eluting stents. 4. Cardiomyopathy with an estimated EF of 35% to 40% with a severe hypokinesis of the anteroseptal wall and apex. The patient is intubated and sedated. PHYSICAL EXAMINATION: Blood pressure is 104/66, heart rate 91, FiO2 of 60% with 94% sats. General: Intubated, sedated. Head and neck exam: Normocephalic, atraumatic. Neck: No obvious carotid bruits appreciated. Heart exam: Distant sounds, regular. I do not appreciate murmurs, gallops, rubs. Lungs somewhat coarse anteriorly. Abdomen soft, nondistended. Extremities fairly warm with 1 to 2+ distal pulses. Skin without obvious breakdown appreciated. Neuro: Intubated and sedated. Psych: Intubated and sedated. CURRENT MEDICATIONS: Include: 1. Xopenex. 2. Propofol. 3. Spironolactone 25 daily. 4. Subcu heparin. 5. Plavix 75 daily. 6. Aspirin 81 mg daily. 7. Captopril 3.125 mg several times a day. 8. Glargine insulin. 9. Atorvastatin 40 q.h.s. 10. Metoprolol as needed. LABORATORIES: Show a white count 11.2, H and H 12.3 and 39 platelets of 241,000. Chemistry shows sodium 141, potassium 2.9, chloride and bicarb 98 and 32, respectively. BUN and creatinine 37 and 0.87. Imaging today shows a chest x-ray with bibasilar atelectasis versus aspiration or pneumonia. Progression of EKGs show progressing from evolving anterior ST elevations to now mostly evidence of old anteroseptal NE with some residual T wave changes. He is in sinus rhythm. IMPRESSION: The patient is status post ST-elevation myocardial infarction with treatment of a stent to the left anterior descending which is now subacutely thrombosed. It was felt that opening up the stent at this juncture with occlusion would be of no benefit to the patient. He is now status post circumflex stent and right coronary stent. He has diminished left ventricular systolic function with evidence of anterior myocardial infarction on his echocardiogram. PLAN: 1. He can continue spironolactone and captopril as long as his pressure can tolerate it. 2. I have spoken with our medical sales specialist, and feeling is he is not going to be intubated immediately, as there is some concern for increasing oxygen demands. 3. I will follow with you. I spent 30 minutes of critical care time reviewing the patient's records, cath films, echo. I also examined the patient and communicated with the hospital team and ICU nurses. RINA
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
[2016-11-13] MEDS ORDERED: Digoxin 0.25 mg/mL 2 mL Inj IV ONE (13:55)
--- NOTE | 2016-11-13 14:02 | PCM.PNMED ---
Subjective Date of Service Nov 13, 2016 Subjective Pulmonolgy/ICU Progress Note: Attending Provider Dr. Park. Requesting Provider Dr. Ho. Reason for Consult vent management. 66 year old male with significant cardiac history including multiple NSTEMI's, CAD, CHF and COPD, presented to ED with STEMI and subsequently received bare metal stent placement to LAD. Pt required sedation and intubation prior to procedure secondary to his inability to lay flat on the procedure table secondary to hid COPD/CHF. Overnight: Pt remained in sinus tach in the 90's and low 100's. FiO2 requirements have had to be increased secondary to decreasing O2 saturation levels. he continued to have thick secretions from his ET tube. ROS unable to be obtained, Pt remains intubated and sedated. Exam Vital Signs Vital Sign - Last Date Time Temp Pulse Resp B/P Pulse Ox O2 Delivery O2 Flow Rate FiO2 11/13/16 12:00 37.1 97 20 103/67 95 Mechanical Ventilator 60 11/10/16 16:06 6.00 Intake and Output 11/12/16 11/12/16 11/13/16 Cumulative From/Thru 15:00 23:00 07:00 11/06/16 01:25 - 11/13/16 05:46 Intake Total 673 ml 937 ml 9642 ml Output Total 1125 ml 950 ml 52351 ml Balance -452 ml -13 ml -5633 ml Intake Oral 300 ml IV Total 450 ml 417 ml 8486 ml Tube Feeding 143 ml 370 ml 556 ml Tube Irrigant 80 ml 150 ml 300 ml Output Urine Total 1125 ml 950 ml 46123 ml Gastric Drainage Total 1500 ml # Bowel Movements 0 0 0 Exam General: Intubated and sedated, lying in hospital bed. Does not open eyes to voice secondary to sedation though does move head slightly to voice. HEENT: Normocephalic, atraumatic. ET tube in place Neck: No jugular venous distension. Cardiovascular: Tachycardic rate with regular rhythm. No murmurs appreciated Pulmonary: Crackles heard bilateral upper anterior lung marlow. Abdomen: Soft to palpation, nondistended. Extremities: Lower extremity bilateral erythema with excoriations. Psychiatric: Intubated and Sedated Ventilator settings: Tidal volume 500. Respiratory rate 14. FiO2 0.6. PEEP 10. IV drips and Sedatives: Fentanyl 30mcg/kg/hr. Propofol 27mcg/kg/hr IV lines: PICC line in place I&O Total: in + 8032 ml, out - 13,200 ml, total - 5,168 ml, last 24 hrs: in 937 , out 950, total negative 13 IVs and Medications Medications Reviewed: Medications were reviewed in detail Lab and Diagnostics Result Diagram: 11/13/16 0504 11/13/16 0504 X-Rays, CTs and MRIs X-RAY CHEST ONE VIEW, PORTABLE ([id number]) IMPRESSION: 1. Unchanged positioning of the tubes and lines. 2. Aeration of the lungs is similar to the prior study. No new consolidation, effusion, or pneumothorax. Dictated by: Vignesh Aguilar M.D. on 11/11/2016 at 11:34 Approved by: Vignesh Aguilar M.D. on 11/11/2016 at 11:36 12-lead ECG -ECG at admission showed ST elevation in anterior leads V2-V4, repeat ECG showed ST elevation progression with rising troponin levels Cardiac Echo Impressions Echocardiogram Report 11/06/2016 Interpretation Summary The left ventricle is borderline dilated. There is akinesis along the apical wall and severe hypokinesis along the anteroseptal wall. There is mild to moderate hypokinesis along the anterior wall. Left ventricular systolic function is moderate to severely reduced. The ejection fraction is estimated to be 35-40%. LVEF has decreased since prior study. Assessment of diastolic parameters indicates a relaxation abnormality of the left ventricle, consistent with normal filling pressures. The right ventricle is normal size. Right ventricular systolic function is mildly reduced. Both atria are mildly dilated. There is no significant valvular heart disease. The aortic root is mildly dilated. Reading Physician:PM Additional Diagnostics DIAGNOSTIC CARDIAC CATHETERIZATION FINDINGS: 1. LMCA: The left main coronary artery is intact. 2. LAD: The left anterior descending coronary artery is heavily calcified and initially occluded proximally at the small first septal. When opened, it is a medium-sized transapical vessel with severe diffuse disease in the proximal and mid portions. 3. LCX: The left circumflex coronary artery is a medium-sized vessel. The first OM is a medium-sized branching vessel with 80% lesions. The second OM is a medium-sized vessel with a 70% tubular proximal narrowing. Thereafter the mid LCX is a medium-sized vessel with a 70% proximal lesion. 4. RCA: Dominant. A 90% tubular proximal lesion. The right coronary artery is a large vessel with a large PDA and a large RPLB. 5. LHC: LVED of 20 mmHg; and no systolic gradient across the aortic valve on pullback. Systolic blood pressure 100. CONCLUSIONS: 1. PCI of proximal occluded LAD--Vision BMS--2.5 x 23 mm post dilated to 2.75 mm. 2. ACS--anterior IL with culprit occluded proximal LAD. 3. Coronary artery disease (CAD)--three-vessel disease including occluded proximal LAD; 80% OM 1, 70% mid LCX; and 90% proximal RCA. Kyler Marin MD 11/06/16 0857 INTERVENTIONAL CARDIAC CATHETERIZATION CONCLUSION: 1. Moderate pulmonary hypertension. 2. Cardiac index is 2.6 L/minute per m2. 3. Mean pulmonary capillary wedge pressure is 35 mmHg. 4. The left anterior descending artery has reoccluded in the proximal portion. 5. Severe 90% proximal right coronary artery stenosis. This was successfully treated with one occluding stent. 6. Severe 70% 1st obtuse marginal branch stenosis. This was successfully treated with one occluding stent. Sosa Mejia MD 11/10/16 5822 Assessment & Plan Mr. High is a 66 man with past medical history significant for coronary artery disease, hypertension, congestive heart failure, dyslipidemia, and history of non compliance with multiple AGAINST MEDICAL ADVICE discharges admitted for STEMI with stent placement to left anterior descending coronary artery and subsequent stents place to the right circumplex artery and the first obtuse marginal branch. Patient was once again intubated for the catheterization procedure. Hospital day 8, Ventilator Day 4. 1. Acute on chronic orthopnea, present on admission. - Pt unable to lay supine secondary to his COPD/CHF and required sedation, intubation & mechanical ventilation in order to successfully complete second cardiac catheterization. - Currently intubated and sedated - Oxygenation saturation remains labile. Reported to have desaturated despite an FiO2 of 1.0. currently FiO2 at 0.6 with saturation level of 91%. PEEP of 10. RR 14 - CXR continues to show pulmonary edema and Pt. Lasix stopped 11/13/2016 2. Cardiogenic shock s/p 3 vessel stent placement - Bare metal stent to LAD on 11/06/2016. This has occluded. - NATALYA placed to both RCA & 1st obtuse marginal branch on 11/10/2016 - Echo done during this admission 11/06/2016 showed EF 35-40% which is decreased from prior study. ECHO done 11/10/2016 shows EF of 22% - Hold B-Blockers and CCB's - Lasix as in #1 PRN - Levophed discontinued - Captopril and Digoxin started per cardiology - Cardiology continues to follow 3. Systolic and Diastolic Congestive Heart Failure, present on admission. Ongoing - Patient did not appear to be decompensated at time of admission - ECHO as in #2 - Hold IV fluids - Lasix as in #1 - Continue to monitor this closely 4. STEMI s/p 3 vessel stent placement as in #2 - Continue ASA 81mg daily and Plavix 75mg daily - Continue atorvastatin 40mg daily 5. Chronic Obstructive Pulmonary Disease with chronic respiratory failure, present on admission. Ongoing - Did not appear to be exacerbated at time of admission. Patient uses 2-3 L supplemental O2 in his car - Levalbuterol Q4 schedule - Solu Medrol 40mg IV daily 6. Chronic Diabetes Mellitus type 2, present on admission. Ongoing - Hemoglobin A1C 10.3 this admission - High dose correction scale of regular insulin - Lantus 10 units HS - Tube feeds started 11/11/2016 7. Paroxysmal atrial tachycardia/atrial fibrillation, chronic, not present on admission - Rate control and conversion back to sinus rhythm achieved with amiodarone - Cardiology following 8. Chronic Hypertension, present on admission, stable - Patient has been hypotensive and low normotensive during admission - Hold home blood medications - Lasix as in #1 9. Chronic hyperlipidemia, present on admission, presumed stable - Statin as in #3 10. Chronic depression, present on admission, stable - Continue sertraline 25 mg daily 11. Tobacco dependence, chronic, present on admission - Nicotine patch available PRN 12. Chronic obesity, present on admission, presumed stable - Recommend weight loss with lifestyle changes 13. Chronic venous insufficiency, present on admission, stable - Monitor for signs of infection as the patient also has chronic cellulitis - Lower extremity US showed no evidence of DVT GI Prophylaxis: H2 gracie VTE Prophylaxis: Sub-Q Heparin (Unfractionated), SCDs VTE Mechanical Devices: Intermittant Pneumatic CD Resuscitation Status: CPR: Attempt Resuscitation Attending Statement I have seen and examined this patient with the resident physician. Vital signs , labs, imaging have been reviewed. I agree with the assessment and plan above. Please refer to my separately dictated progress note for any modifications to above. Felicia Park M.D. Pulmonary and Critical Care medicine Pager [phone] HARINDER PACKER DO Nov 13, 2016 14:02 Felicia Park MD Nov 14, 2016 09:33 - Recommend weight loss with lifestyle changes. 12. Chronic venous insufficiency, present on admission, stable. - Monitor for signs of infection as the patient also has chronic cellulitis. - Antiemetics available PRN. - Bowel Regimen available PRN. - Nystatin powder available PRN. Disposition: Patient is likely to remain inpatient for a significantly extended period of time with significant morbidity and mortality associated to primary disease process and will need to be discharged with plans for cardiac rehabilitation. Patient's case and medical management discussed with critical care (Dr. Park). GI Prophylaxis: H2 gracie VTE Prophylaxis: Sub-Q Heparin (Unfractionated), SCDs VTE Mechanical Devices: Intermittant Pneumatic CD Resuscitation Status: CPR: Attempt Resuscitation HARINDER PACKER DO Nov 13, 2016 14:02
--- NOTE | 2016-11-13 15:32 | NUR ---
Resp: Vent settings without change, saturations 86-95% on .60 Fio2. Suctioning for small to moderate amounts creamy secretions via ETT, moderate amount cream to de la fuente oral secretions. LS somewhat coarse on the left, dominished both bases. Propofol and fentanyl infusing for pain and sedation. MD considering change to Precedex. TMax 37.5. CV: SR/ST with HR 95-105. No ectopy. CVP 6, lasix given this morning and now discontinued. Weight is down over 12kg, I&O consistently negative. Dig initiated as ordered. SBP upper 90's to 110's today, no pressors for ~36h. GI/: No stool, PRN bowel program meds given. Good UOP after lasix this morning. Tolerates tube feedings, residual 5ml this morning. Blood sugars 188-250, regular insulin coverage given as ordered. 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
--- NOTE | 2016-11-13 16:01 | PCM.PNMED ---
Subjective Date of Service Nov 13, 2016 Subjective overnight: Patient continues to require increased oxygenation settings after desaturation to 84% when turned onto right side. Today: Patient's infectious status and the topic of concern recently with increased FiO2 from prior intubation at the beginning of this admission. Chest x-rays personally reviewed seemed to show a right lower lobar pneumonia. Pulmonology considered possible bronchoscopy however infectious diseases decided that this patient is not infectious and will hold off on antibiotics at this point. Cardiology recommendations include initiating digoxin IV per loading dose parameters for acute heart failure. Pharmacy was consulted at this point and has confirmed that loading doses of IV digoxin will get digoxin levels to steady state faster. Exam Vital Signs Vital Sign - Last Date Time Temp Pulse Resp B/P Pulse Ox O2 Delivery O2 Flow Rate FiO2 11/13/16 05:39 101 92/66 93 60 11/13/16 04:00 37.7 24 Mechanical Ventilator 11/10/16 16:06 6.00 Intake and Output 11/12/16 11/12/16 11/13/16 Cumulative From/Thru 15:00 23:00 07:00 11/06/16 01:25 - 11/13/16 05:46 Intake Total 673 ml 937 ml 9642 ml Output Total 1125 ml 950 ml 58836 ml Balance -452 ml -13 ml -5633 ml Intake Oral 300 ml IV Total 450 ml 417 ml 8486 ml Tube Feeding 143 ml 370 ml 556 ml Tube Irrigant 80 ml 150 ml 300 ml Output Urine Total 1125 ml 950 ml 90567 ml Gastric Drainage Total 1500 ml # Bowel Movements 0 0 0 Exam General: Obese disheveled man appearing older than stated age, Intubated and sedated, lying in hospital bed. Eyes: PERRLA, anicteric sclera, noninjected conjunctiva HEENT: Normocephalic, atraumatic. External ears without defect. ET tube in place Neck: Trachea midline, No jugular venous distension noted Cardiovascular: Regular rate and rhythm with no murmurs appreciated Pulmonary: Substantially decreased air movement in all lung marlow however significantly worse in left than right, mild coarse breath sounds in the base on right on auscultation with very mild intermittent wheezes noted Abdomen: Soft to palpation, nondistended, no organomegaly noted, large umbilical hernia noted likely 20cm Extremities: Improving Lower extremity erythema bilaterally and significantly improved healing bilateral llanos excoriations . No edema. Right femoral cath insertion site non erythematous no active bleeding. Right upper extremity PICC line placement. Onychomycosis bilaterally in LE. Neuro: unable to assess intubated and sedated not following commands Psychiatric: unable to assess intubated and sedated not following commands IVs and Medications Medications Reviewed: Medications were reviewed in detail Lab and Diagnostics Result Diagram: 11/13/16 0504 11/13/16 0504 X-Rays, CTs and MRIs X-RAY CHEST ONE VIEW, PORTABLE ([id number]) IMPRESSION: 1. Unchanged positioning of the tubes and lines. 2. Aeration of the lungs is similar to the prior study. No new consolidation, effusion, or pneumothorax. Dictated by: Vignesh Aguilar M.D. on 11/11/2016 at 11:34 Approved by: Vignesh Aguilar M.D. on 11/11/2016 at 11:36 12-lead ECG -ECG at admission showed ST elevation in anterior leads V2-V4, repeat ECG showed ST elevation progression with rising troponin levels Cardiac Echo Impressions Echocardiogram Report 11/06/2016 Interpretation Summary The left ventricle is borderline dilated. There is akinesis along the apical wall and severe hypokinesis along the anteroseptal wall. There is mild to moderate hypokinesis along the anterior wall. Left ventricular systolic function is moderate to severely reduced. The ejection fraction is estimated to be 35-40%. LVEF has decreased since prior study. Assessment of diastolic parameters indicates a relaxation abnormality of the left ventricle, consistent with normal filling pressures. The right ventricle is normal size. Right ventricular systolic function is mildly reduced. Both atria are mildly dilated. There is no significant valvular heart disease. The aortic root is mildly dilated. Reading Physician:PM Additional Diagnostics DIAGNOSTIC CARDIAC CATHETERIZATION FINDINGS: 1. LMCA: The left main coronary artery is intact. 2. LAD: The left anterior descending coronary artery is heavily calcified and initially occluded proximally at the small first septal. When opened, it is a medium-sized transapical vessel with severe diffuse disease in the proximal and mid portions. 3. LCX: The left circumflex coronary artery is a medium-sized vessel. The first OM is a medium-sized branching vessel with 80% lesions. The second OM is a medium-sized vessel with a 70% tubular proximal narrowing. Thereafter the mid LCX is a medium-sized vessel with a 70% proximal lesion. 4. RCA: Dominant. A 90% tubular proximal lesion. The right coronary artery is a large vessel with a large PDA and a large RPLB. 5. LHC: LVED of 20 mmHg; and no systolic gradient across the aortic valve on pullback. Systolic blood pressure 100. CONCLUSIONS: 1. PCI of proximal occluded LAD--Vision BMS--2.5 x 23 mm post dilated to 2.75 mm. 2. ACS--anterior MO with culprit occluded proximal LAD. 3. Coronary artery disease (CAD)--three-vessel disease including occluded proximal LAD; 80% OM 1, 70% mid LCX; and 90% proximal RCA. Kyler Marin MD 11/06/16 0857 INTERVENTIONAL CARDIAC CATHETERIZATION CONCLUSION: 1. Moderate pulmonary hypertension. 2. Cardiac index is 2.6 L/minute per m2. 3. Mean pulmonary capillary wedge pressure is 35 mmHg. 4. The left anterior descending artery has reoccluded in the proximal portion. 5. Severe 90% proximal right coronary artery stenosis. This was successfully treated with one occluding stent. 6. Severe 70% 1st obtuse marginal branch stenosis. This was successfully treated with one occluding stent. Sosa Mejia MD 11/10/16 5471 Assessment & Plan Vincent High is a 66 gentleman with past medical history significant for coronary artery disease, hypertension, congestive heart failure, dyslipidemia, and history of non compliance with multiple AGAINST MEDICAL ADVICE discharges admitted for STEMI with stent placement to left anterior descending coronary artery. Patient is unable to lay down at baseline secondary to his chronic lung disease and would only agree to catheterization if he was sedated. 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 Hospital Day [address] elevation myocardial infarction, Present on admission. Presumed stable - Patient initially stented on day of admission with bare metal stent to left anterior descending coronary artery - Patient taken back to cardiac petroleum refinery laborer 11/10/2016 showed occluded LAD stent with significant notable wall motion abnormality consistent with severe myocardial infarction at admission - 2 drug-eluting stents placed in the proximal right coronary artery and left marginal obtuse - Discussed with trade union official Dr. Mejia on 11/11/2016 patient has a poor prognosis given significant myocardial damage likely prior to initial bare metal stenting to LAD - Patient will need at least 1 year of Plavix 75 mg daily given his drug- eluting stents with recommendations to take aspirin daily indefinitely - OG tube in place nursing will continue daily ASA 81mg and Plavix 75 mg daily and atorvastatin 40 mg daily through OG - Cardiology continues to follow the patient and we appreciate their recommendations. 2. Cardiogenic shock, not present on admission, stable - Secondary to significant wall motion abnormality with worsening ejection fraction DOWN to 20% from 35% - Patient returned from cardiac catheterization on 11/10/2016 with low blood pressures requiring pressure support - PICC line was placed and the patient was started on a norepinephrine drip - Patient weaned from norepinephrine on 11/12 - Cardiology to initiate digoxin IV loading dose parameters November 13 3. Acute on chronic hypoxic respiratory failure, not present on admission, treated currently - Patient uses 2-3 L supplemental at baseline - Patient has significant orthopnea at baseline, and requires intubation and mechanical ventilation for cardiac catheterizations - Patient required 3 days of mechanical ventilation after initial cardiac catheterization on November 06 before being extubated on 11/09/2016 - Patient was taken to cardiac petroleum refinery laborer 11/10/2016 - Patient continues to be mildly hypoxic with oxygen saturation in the low 90s while ventilated with an FiO2 of 0.6 and PEEP of 8 - Ventilator bundle set with sedation with fentanyl and propofol available - Sputum sent for culture on the both the on the negative to date - On personal review of chest x-rays from November 13 notable right lower lobe consolidation with consideration for evolving lobar pneumonia versus possible aspiration pneumonia - Infectious disease consult could not do not believe this patient is acutely infectious at this time 3. Chronic Obstructive Pulmonary Disease with chronic respiratory failure, present on admission. Treated - Did not appear to be having exacerbation at time of admission. - Patient will require extubation to oxygen mask and it is unlikely to be receptive to BiPAP mask - Continue levalbuterol neb PRN given tachycardia and ipratropium 4 times a day scheduled. - Continue Solu-Medrol 40 mg IV daily - Ventilator bundle with sedation as discussed in #3 4. Acute on chronic Systolic Congestive Heart Failure secondary to ischemic cardiomyopathy, present on admission. Ongoing - Patient did not appear to be decompensated at time of admission. - Echo performed at the beginning of this hospitalization showed EF 35-40% which is decreased from prior study. - On evaluation of systolic ejection fraction during cardiac catheterization estimates EF approximately 20-22% decreased from the initial EF at presentation during this hospitalization - IV fluids to be TKO. - Lasix 40 mg twice a day - Metoprolol 5 mg IV for tachycardia greater than 120 - Spironolactone 25 mg by mouth through OG - Captopril low-dose 3 times a day scheduled by cardiology - Cardiology recommendations include digoxin as described above in cardiogenic shock 5. Chronic Diabetes Mellitus type 2, present on admission. Ongoing - Hemoglobin A1C 10.3 this admission. - Patient currently receiving tube feeds - Continue high dose correction scale of regular insulin - Lantus 10 units HS. 6. Paroxysmal atrial tachycardia/atrial fibrillation, chronic, not present on admission. - Digoxin IV discussed in cardiogenic shock and systolic congestive heart failure 7. Chronic Hypertension, present on admission, stable. - Patient has been hypotensive and low normotensive during admission. - Patient currently requires pressor support with norepinephrine drip will be reevaluated daily - Captopril low-dose 3 times a day per cardiology recommendations 8. Chronic hyperlipidemia, present on admission, presumed stable - Continue atorvastatin. 9. Chronic depression, present on admission, stable. - hold sertraline 25 mg daily. 10. Tobacco dependence, chronic, present on admission - Nicotine patch available PRN. 11. Chronic obesity, present on admission, presumed stable. - Recommend weight loss with lifestyle changes. 12. Chronic venous insufficiency, present on admission, stable. - Monitor for signs of infection as the patient also has chronic cellulitis. - Antiemetics available PRN. - Bowel Regimen available PRN. - Nystatin powder available PRN. Disposition: Patient is likely to remain inpatient for a significantly extended period of time with significant morbidity and mortality associated to primary disease process and will need to be discharged with plans for cardiac rehabilitation. Case discussed with Critical care (Dr. S Parimi). GI Prophylaxis: H2 gracie VTE Prophylaxis: Sub-Q Heparin (Unfractionated), SCDs VTE Mechanical Devices: Intermittant Pneumatic CD Resuscitation Status: CPR: Attempt Resuscitation Time spent Greater than 35 minutes Attending Statement The patient was seen and examined together with Dr. Miller on 11/13/16 and I have added additional information to the note above. Kenrick Ho DO Nov 13, 2016 06:47 Gaby Mora DO Nov 14, 2016 15:27
--- NOTE | 2016-11-13 16:14 | CONS ---
[address] [address] CONSULTATION REPORT PATIENT: JULIA LUNA : 1950 MR#: [id number] ADMIT: 11/06/2016 JOB ID: [id number] DATE OF SERVICE: 11/13/2016 INFECTIOUS DISEASE CONSULTATION: I thank Dr. Kira Park for this consult. REASON FOR CONSULT: Possible ventilator associated pneumonia in a patient with ventilator dependent respiratory failure. HISTORY OF PRESENT ILLNESS: The patient is a 66-year-old gentleman who is well known to this institution from a series of multiple admissions for coronary artery disease and COPD. He is often admitted in extremis with respiratory failure and then discharged. One of the patient's problems is that he apparently lives in a car with his dog and has little access to warm, good sleeping environment and access to other things he would need for good hygiene and healthcare. In any event, the patient was readmitted to this facility back on November 06 with acute increasing shortness of breath and some chest pain. His EKG was consistent with myocardial ischemia and he received a cardiac cath with stent placement and was transferred to the ICU on a ventilator. The patient had a few ty days in the hospital on the ventilator but then was extubated on the , and unfortunately he failed his trial of extubation and was reintubated because of increasing shortness of breath and chest pain. It was felt that he had a new SC with anterior lateral ischemia and had a second cardiac cath during this admission which revealed RCA and obtuse artery occlusion requiring additional stents. He now remains in the ICU status post these two cardiac cath and stent events during this one week long admission. At this point, the patient is obviously intubated, sedated and unable to provide any additional history. This case was discussed in detail with the ICU team as well as the ICU nurse at the bedside. The question asked here is whether he may have a nosocomial pneumonia based on his rising white blood count and a slight increase in his oxygen needs. The nurse and others have observed that he has little in the way of purulent sputum. It is notable that his FiO2 was pushed up from 50 yesterday to 60 today to maintain his oxygen saturation. He has not required any vasopressor agents. He continues to have reasonable urine output. PAST MEDICAL HISTORY: 1. Organic heart disease: a. Coronary artery disease. b. Recurrent episodes of myocardial ischemia. c. Status post multiple stents including two episodes of stenting on this admission. d. Congestive heart failure. 2. Homeless status and periods of med noncompliance. 3. 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 4. Chronic respiratory failure on home oxygen. 5. Hypertension. 6. Diabetes mellitus. 7. Hypertension. 8. Obesity. 9. Chronic venous insufficiency. 10. History of recurrent cellulitis, lower extremities. 11. History of MRSA. SOCIAL HISTORY: The patient is said to be a homeless unemployed [place] who lives in his car. He does not smoke or drink but he did smoke until nine years ago. FAMILY HISTORY: Reported to be positive for diabetes but we obviously cannot ask the patient any questions at this point. REVIEW OF SYSTEMS: Intubated and sedated-not possible Physical Exam: Reveals an intubated, sedated gentleman who is not responsive obviously. Current vital signs include temperature 37.1. It is notable that he had one temperature spike during this entire admission on November 08 to 38 degrees and he has never been more than that. His pulse is currently 94 and the rhythm is normal sinus. Blood pressure is 103/67. He is not on vasopressor agents. He is saturating well on 60%. During this eight day hospital stay, his ventilator requirements have primarily been 40% and 50% and he has been 60% over the last 12 hours or so. The patient has no evidence of head trauma. His eyes are without conjunctivitis or scleral icterus. Oral endotracheal tube, oral gastric tube in good position. There are very little secretions from the oral endotracheal tube. The subglottic drainage tube has some thick cottage cheese-like material within it. The patient's neck without adenopathy or mass. He does not have much in the way of JVD. His lungs are notable for some rales at the bases but not impressive. Cardiac tones regular rate and rhythm. No appreciable murmur, though there are a lot of ventilator sounds in a background. His abdomen is soft and apparently without tenderness. There is no organomegaly or ascites. He does have hypoactive bowel sounds. He does have a Cramer catheter. No suprapubic fullness. He does not have cervical or inguinal adenopathy. His legs are without edema at this point. No evidence of synovitis in the joints. No significant skin rash though he does have venous stasis changes on his lower extremities. Neurologically we cannot evaluate this patient who is on the ventilator. LABORATORIES: Include white count 11,200, up from 8000 yesterday. His platelet count 241,000. His creatinine 0.87. His LFTs are normal. Procalcitonin has been done six times over the past six days and it is ranging between 0.1 on admission up to 0.18 now. It was briefly as high as 0.38, but I would conclude these are basically negative numbers. Albumin 3.0. Urinalysis without significant pyuria. Micro studies include negative MRSA screen twice, and four sputum samples including one from yesterday all showing a few to moderate number of polys and growing normal beverly. Blood cultures have been done x8 bottles, all negative at this time. Chest x-ray shows bibasilar atelectasis versus CHF versus pneumonia. In comparing the films of the last few days, I see very little difference in this infiltrate. IMPRESSION: 1. At this point, I see little to suggest that this patient has ventilator associated pneumonia. He has no fever, no significant leukocytosis, no significant elevation of procalcitonin, non purulent sputum and a relatively stable ventilator status though he has required a little bit more oxygen overnight. The diagnosis of ventilator associated pneumonia is always difficult and autopsy studies would suggest that our clinical criteria are about 65% specific. 2. To glean more data about the possibility, I think we could consider a CT scan of the chest, as well as the sinuses as he does have some rather thick secretions coming from the subglottic tube. I do not think this is mandatory, however. I would continue to culture his sputum every 1-2 days so we will get an idea if there is a bump in the polys or more resistant or different organisms appearing. RECOMMENDATIONS: 1. No antibiotics at this time. 2. I do not see any indication for BAL at this time. 3. CT scan of the chest and the sinuses might be a reasonable endeavor to get more data about possible infection, especially if he worsens. 4. I would check sputum cultures and Gram stains every two days so we can keep on top of whatever organisms are incubating his respiratory tract. [facility] HOSPITAL[facility]
[2016-11-13] MEDS: Ipratropium 0.02% 0.5 mg/2.5 mL Inhalation Solution NEB SCH (20:00)
[2016-11-13] MEDS: Digoxin 0.25 mg/mL 2 mL Inj IV SCH (20:21)
[2016-11-13] MEDS: Insulin GLARgine 100 Unit/mL Syringe SUBQ SCH (20:31)
[2016-11-14] VITALS (16 sets, daily range): BP systolic 97–118; BP diastolic 56–71; PULSE 87–96; RESP 16–24; O2SAT 50–98
[2016-11-14] MEDS: Sodium Chloride LOK Flush 10 mL Syringe IVFLUSH SCH ×4 (00:30→23:47)
[2016-11-14] MEDS: Chlorhexidine 0.12% 15 mL Oral Solution MT SCH ×7 (00:38→23:47)
[2016-11-14] MEDS: Heparin 5,000 Unit/mL Inj SUBQ SCH ×4 (00:38→23:48)
[2016-11-14] MEDS: Levalbuterol 1.25 mg/0.5mL Inhalation Solution NEB SCH ×6 (00:48→20:42)
[2016-11-14] MEDS: Digoxin 0.25 mg/mL 2 mL Inj IV SCH ×2 (02:05→12:44)
[2016-11-14] MEDS: Insulin Human REGular 300 Unit/3 mL Inj SUBQ SCH ×4 (02:15→19:56)
[2016-11-14] MEDS: fentaNYL 2,500 mCg/250 mL 2,500 MCG in IV Premix 1 EACH IV SCH ×2 (02:24→12:00)
[2016-11-14] MEDS: Propofol Inj 1,000,000 MCG in IV Premix 1 EACH IV SCH ×4 (03:07→18:46)
--- NOTE | 2016-11-14 04:13 | NUR ---
P: neuros I: fentanyl and propofol drips E: Ventilated at 60%, peep 10. Sats in the low 90s. Overbreathes vent rate. Minimally opens eyes when care given. Unable to follow cues. Moving BUEs and pulling on restraints. Bronchospastic coughing. Fentanyl drip at 25mcg and propofol at 25mcg. Tele SR. Low stable BP. CVP 12-14. Teresa UOP approx 40-50ml/hr. Addendum: 11/14/16 at 0421 by MATEO CHIN RN Receiving loading dose of digoxin every 6 hrs.
--- NOTE | 2016-11-14 04:41 | ABG ---
DateTimeAnalyzed 04:34:49 -_ pH ____7.449 - 7.350 7.450 pCO2 ___53.4__ -mmHg 35.0 45.0 pO2 ___72.0__ -mmHg 70.0 100 HCO3- ___37.0__ -mmol/L 22.0 26.0 ABE ___11.7__ -mmol/L -2.0 2.0 tHb ___12.3__ -g/dL 12.0 18.0 O2Hb ___94.6__ -% 95.0 COHb ____1.6__ -% 1.5 MetHb ___-0.1__ -% 0.4 1.5 sO2 ___96.0__ -% 25.0 FIO2 ___21.0__ -% PEEP ___10.0__ -cmH2O Set_RR 14 -b/min Vt __500.0__ -L Drawn By RB - Date/Time Notified____ 04:40:00 -_ Spontaneous_RR 14 -b/min Oxygen Device 1 VENTILATOR - Notified By RB - Notified Whom RENAE K, RN - B 759 -mmHg K+ ____3.9__ -mmol/L tO2 ___16.4__ -Vol% Collin test _Positive -
[2016-11-14] MEDS: Ipratropium 0.02% 0.5 mg/2.5 mL Inhalation Solution NEB SCH ×5 (04:47→20:42)
[2016-11-14 05:40] LABS: BASOPHILS % (AUTO) 0.2 % (0-3); EOSINOPHILS % (AUTO) 1.6 % (0-5); MONOCYTES % (AUTO) 13.4 % (4-12); Mean Corpuscular Volume 89.6 fL (81-100); NEUTROPHILS % (AUTO) 74.3 % (40-74); Platelet Count 222 bil/L (150-400)
--- NOTE | 2016-11-14 06:51 | DRSVH ---
PROCEDURE: X-RAY CHEST ONE VIEW, PORTABLE ([id number]) INDICATIONS: 66-year-old male on ventilator. TECHNIQUE: One view of the chest was acquired. COMPARISON: [facility], CR, XR CHEST 1VW (PORTABLE), 11/13/2016, 4:58. [facility], CR, XR CHEST 1VW (PORTABLE), 11/12/2016, 4:40. [facility], CR, XR CHEST 1VW (DEMOND BLE), 11/11/2016, 10:42. FINDINGS: Surgical changes and devices: Endotracheal tube and nasogastric tube are in expected positions. Lungs and pleura: No pleural effusions or pneumothorax. Bibasilar atelectasis has decreased. Mediastinum: Mediastinal contours appear normal. Heart size is normal. Bones and chest wall: No suspicious bony lesions. Overlying soft tissues appear unremarkable. IMPRESSION: Interval decreased bibasilar atelectasis. No acute cardiopulmonary disease. Dictated by: Mukesh Acevedo M.D. on 11/14/2016 at 6:49 Approved by: Mukesh Acevedo M.D. on 11/14/2016 at 6:50
[2016-11-14] MEDS: Nystatin 100,000 Unit/Gm 15 Gm Powder TOPICAL SCH ×2 (08:15→19:42)
[2016-11-14] MEDS: MethylprednisoLONE Sodium Succinate 40 mg/mL Inj IVPUSH SCH ×3 (08:28→23:47)
[2016-11-14] MEDS: Famotidine Inj 20 MG in IV Premix 1 EACH IV SCH ×2 (08:29→19:55)
[2016-11-14] MEDS ORDERED: Ipratropium 0.02% 0.5 mg/2.5 mL Inhalation Solution NEB SCH (08:30)
[2016-11-14] MEDS: Polyethylene Glycol (PEG) 17 Gm Powder PO PRN (08:30)
[2016-11-14] MEDS ORDERED: Furosemide 10 mg/mL 4 mL Inj IVPUSH ONE (11:10)
[2016-11-14] MEDS: Azithromycin Inj 500 MG in Dextrose 5% w/Vial Mate 250 ML IV SCH (11:35)
--- NOTE | 2016-11-14 13:05 | PROG NOTE ---
[address] [address] PROGRESS NOTE PATIENT: JULIA LUNA : 1950 MR#: [id number] ADMIT: 11/06/2016 JOB ID: [id number] DATE: 11/14/2016 PULMONARY CRITICAL CARE PROGRESS NOTE: The patient is a 66-year-old man with history of a personality disorder, recurrent ED visits for chest pain, admitted with ST-elevation OH requiring stenting and acute hypoxic respiratory failure. INTERVAL HISTORY: Oxygenation on the vent continues to be poor with FiO2 of 60% PEEP of 10 cm and sats barely in the 90 range. ID evaluated him yesterday and did not think this was because of pneumonia. No other major overnight issues. REVIEW OF SYSTEMS: Unable to obtain. PHYSICAL EXAMINATION: Vital signs reviewed. T-max 37.8 yesterday afternoon, pulse 98, respirations 24, BP 101/64, sats 90% on 60% FiO2 and 12 cm of PEEP. On ins and outs, he is about net even. PHYSICAL EXAMINATION: Intubated, sedated. Chest clear to auscultation. LABORATORIES: Reviewed. WBC down to 9 from 11. Hemoglobin stable. Chemistry also reviewed. He has an elevated bicarbonate of 32. Procalcitonin is down to 0.13 this morning from 0.18. Cultures-no growth on blood, sputum cultures x2. Chest x-ray shows relatively clear pulmonary parenchyma. Minimal basilar atelectasis, more so on the left. Arterial blood gas from this morning shows pH of 7.44, pCO2 of 55, bicarbonate of 37, pO2 of 72. ASSESSMENT AND RECOMMENDATIONS: 1. Acute hypoxic respiratory failure intubated electively for cardiac cath on November 10. 2. Acute ST-elevation myocardial infarction status post bare metal stent in LAD on November 07, complicated by reocclusion and subsequent drug-eluting stents in RCA and LCX on November 10. 3. Personality disorder with behavioral issues. 4. Chronic obstructive pulmonary disease exacerbation. The patient was electively reintubated on November 10 for his second cardiac cath. Since that time, we have had difficulty getting his oxygenation to improve. In fact it seems to be steadily worsening every day and have no good explanation for this. Procalcitonin is negative, he has no white count and no infiltrate on chest x-ray making pneumonia unlikely and ID agrees with this. Also sputum cultures remain negative. We have been giving him Lasix which was held briefly for hypotension but I am going to resume that today and see if diuresis will help his oxygenation. I am also going to increase his Solu-Medrol from 40 daily to 40 IV q.8 for a couple of days to see if COPD is making his breathing worse. Also added azithromycin for possible COPD exacerbation causing his hypoxia and he is getting nebs as well. We will see how he does with all of these changes. I would like to do a pressure support trial today if tolerated. He is getting Plavix, etc., per Cardiology and also an CHERI inhibitor. CRITICAL CARE TIME: 35 minutes.
--- NOTE | 2016-11-14 13:31 | PCM.PNMED ---
Subjective Date of Service Nov 14, 2016 Subjective overnight: Patient's urinary output dropped to 40-50 mL's per hour overnight no other acute events noted Today: The patient continues to require increased O2 support, without signs of active infection. Pro-calcitonin continues to back to drop. The patient will be started on medications for COPD exacerbation including starting azithromycin 500 IV daily increased Solu-Medrol 40 mg every 8 as well as increased Atrovent nebulizer support with every 4 on top of the levalbuterol every 8. The patient will also continue being diuresed given his low urinary output mild fluid overload. Exam Vital Signs Vital Sign - Last Date Time Temp Pulse Resp B/P Pulse Ox O2 Delivery O2 Flow Rate FiO2 11/14/16 04:43 89 108/67 94 60 11/14/16 04:30 37.2 16 Mechanical Ventilator 11/10/16 16:06 6.00 Intake and Output 11/13/16 11/13/16 11/14/16 Cumulative From/Thru 15:00 23:00 07:00 11/06/16 01:25 - 11/14/16 05:53 Intake Total 923 ml 1080 ml 75413 ml Output Total 950 ml 525 ml 89515 ml Balance -27 ml 555 ml -5105 ml Intake Oral 300 ml IV Total 432 ml 397 ml 9315 ml Tube Feeding 371 ml 533 ml 1460 ml Tube Irrigant 120 ml 150 ml 570 ml Output Urine Total 950 ml 525 ml 58401 ml Gastric Drainage Total 1500 ml # Bowel Movements 0 0 Exam General: Obese disheveled man appearing older than stated age, Intubated and sedated, lying in hospital bed. Eyes: PERRLA, anicteric sclera, noninjected conjunctiva HEENT: Normocephalic, atraumatic. External ears without defect. ET tube in place Neck: Trachea midline, No jugular venous distension noted Cardiovascular: Regular rate and rhythm with no murmurs appreciated Pulmonary: Substantially decreased air movement in all lung marlow however significantly worse in left than right, mild coarse breath sounds in the base on right on auscultation with very mild intermittent wheezes noted Abdomen: Soft to palpation, nondistended, no organomegaly noted, large umbilical hernia noted likely 20cm Extremities: Improving Lower extremity erythema bilaterally and significantly improved healing bilateral llanos excoriations . No edema. Right femoral cath insertion site non erythematous no active bleeding. Right upper extremity PICC line placement. Onychomycosis bilaterally in LE. Neuro: unable to assess intubated and sedated not following commands Psychiatric: unable to assess intubated and sedated not following commands IVs and Medications Medications Reviewed: Medications were reviewed in detail Lab and Diagnostics Result Diagram: 11/14/1630 11/14/16529 X-Rays, CTs and MRIs X-RAY CHEST ONE VIEW, PORTABLE ([id number]) IMPRESSION: 1. Unchanged positioning of the tubes and lines. 2. Aeration of the lungs is similar to the prior study. No new consolidation, effusion, or pneumothorax. Dictated by: Vignesh Aguilar M.D. on 11/11/2016 at 11:34 Approved by: Vignesh Aguilar M.D. on 11/11/2016 at 11:36 12-lead ECG -ECG at admission showed ST elevation in anterior leads V2-V4, repeat ECG showed ST elevation progression with rising troponin levels Cardiac Echo Impressions Echocardiogram Report 11/06/2016 Interpretation Summary The left ventricle is borderline dilated. There is akinesis along the apical wall and severe hypokinesis along the anteroseptal wall. There is mild to moderate hypokinesis along the anterior wall. Left ventricular systolic function is moderate to severely reduced. The ejection fraction is estimated to be 35-40%. LVEF has decreased since prior study. Assessment of diastolic parameters indicates a relaxation abnormality of the left ventricle, consistent with normal filling pressures. The right ventricle is normal size. Right ventricular systolic function is mildly reduced. Both atria are mildly dilated. There is no significant valvular heart disease. The aortic root is mildly dilated. Reading Physician:PM Additional Diagnostics DIAGNOSTIC CARDIAC CATHETERIZATION FINDINGS: 1. LMCA: The left main coronary artery is intact. 2. LAD: The left anterior descending coronary artery is heavily calcified and initially occluded proximally at the small first septal. When opened, it is a medium-sized transapical vessel with severe diffuse disease in the proximal and mid portions. 3. LCX: The left circumflex coronary artery is a medium-sized vessel. The first OM is a medium-sized branching vessel with 80% lesions. The second OM is a medium-sized vessel with a 70% tubular proximal narrowing. Thereafter the mid LCX is a medium-sized vessel with a 70% proximal lesion. 4. RCA: Dominant. A 90% tubular proximal lesion. The right coronary artery is a large vessel with a large PDA and a large RPLB. 5. LHC: LVED of 20 mmHg; and no systolic gradient across the aortic valve on pullback. Systolic blood pressure 100. CONCLUSIONS: 1. PCI of proximal occluded LAD--Vision BMS--2.5 x 23 mm post dilated to 2.75 mm. 2. ACS--anterior TN with culprit occluded proximal LAD. 3. Coronary artery disease (CAD)--three-vessel disease including occluded proximal LAD; 80% OM 1, 70% mid LCX; and 90% proximal RCA. Kyler Marin MD 11/06/16 0857 INTERVENTIONAL CARDIAC CATHETERIZATION CONCLUSION: 1. Moderate pulmonary hypertension. 2. Cardiac index is 2.6 L/minute per m2. 3. Mean pulmonary capillary wedge pressure is 35 mmHg. 4. The left anterior descending artery has reoccluded in the proximal portion. 5. Severe 90% proximal right coronary artery stenosis. This was successfully treated with one occluding stent. 6. Severe 70% 1st obtuse marginal branch stenosis. This was successfully treated with one occluding stent. Sosa Mejia MD 11/10/16 8942 Assessment & Plan Vincent High is a 66 gentleman with past medical history significant for coronary artery disease, hypertension, congestive heart failure, dyslipidemia, and history of non compliance with multiple AGAINST MEDICAL ADVICE discharges admitted for STEMI with stent placement to left anterior descending coronary artery. Patient is unable to lay down at baseline secondary to his chronic lung disease and would only agree to catheterization if he was sedated. 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 Hospital Day [address] elevation myocardial infarction, Present on admission. Presumed stable - Patient initially stented on day of admission with bare metal stent to left anterior descending coronary artery - Patient taken back to cardiac laborer poultry hat[employer]y 11/10/2016 showed occluded LAD stent with significant notable wall motion abnormality consistent with severe myocardial infarction at admission - 2 drug-eluting stents placed in the proximal right coronary artery and left marginal obtuse - Discussed with plastic fixture builder Dr. Mejia on 11/11/2016 patient has a poor prognosis given significant myocardial damage likely prior to initial bare metal stenting to LAD - Patient will need at least 1 year of Plavix 75 mg daily given his drug- eluting stents with recommendations to take aspirin daily indefinitely - OG tube in place nursing will continue daily ASA 81mg and Plavix 75 mg daily and atorvastatin 40 mg daily through OG - Cardiology continues to follow the patient and we appreciate their recommendations. 2. Cardiogenic shock, not present on admission, stable - Secondary to significant wall motion abnormality with worsening ejection fraction DOWN to 20% from 35% - Patient returned from cardiac catheterization on 11/10/2016 with low blood pressures requiring pressure support - PICC line was placed and the patient was started on a norepinephrine drip - Patient weaned from norepinephrine on 11/12 - Cardiology to initiate digoxin IV loading dose parameters November 13 3. Acute on chronic hypoxic respiratory failure, not present on admission, treated currently - Patient uses 2-3 L supplemental O2 at baseline - Patient has significant orthopnea at baseline, and requires intubation and mechanical ventilation for cardiac catheterizations - Patient required 3 days of mechanical ventilation after initial cardiac catheterization on November 06 before being extubated on 11/09/2016 - Patient was taken to cardiac laborer poultry [employer] 11/10/2016 - Patient continues to be mildly hypoxic with oxygen saturation in the low 90s while ventilated with an FiO2 of 0.6 and PEEP of 8 - Ventilator bundle set with sedation with fentanyl and propofol available - Sputum sent for culture on both the on the negative to date - On personal review of chest x-rays from November 13 notable right lower lobe consolidation with consideration for evolving lobar pneumonia versus possible aspiration pneumonia - Infectious disease consult could not do not believe this patient is acutely infectious at this time 3. Chronic Obstructive Pulmonary Disease with chronic respiratory failure, present on admission. Treated - Did not appear to be having exacerbation at time of admission. Patient uses 2 -3 L supplemental O2 in his car. - Patient will require extubation to oxygen mask and it is unlikely to be receptive to BiPAP mask - Continue levalbuterol neb q4 given tachycardia and ipratropium q4 scheduled. - Solu-Medrol 40 mg IV q8 - Start Azithromycin 500 daily - Ventilator bundle with sedation as discussed in #3 4. Acute on chronic Systolic Congestive Heart Failure secondary to ischemic cardiomyopathy, present on admission. Ongoing - Patient did not appear to be decompensated at time of admission. - Echo performed at the beginning of this hospitalization showed EF 35-40% which is decreased from prior study. - On evaluation of systolic ejection fraction during cardiac catheterization estimates EF approximately 20-22% decreased from the initial EF at presentation during this hospitalization - IV fluids to be TKO. - Lasix 40 mg one time dose as needed - Metoprolol 5 mg IV for tachycardia greater than 120 - Spironolactone 25 mg by mouth through OG - Captopril low-dose 3 times a day scheduled by cardiology - Cardiology recommendations include digoxin as described above in cardiogenic shock 5. Chronic Diabetes Mellitus type 2, present on admission. Ongoing - Hemoglobin A1C 10.3 this admission. - Patient currently receiving tube feeds - Continue high dose correction scale of regular insulin - The patient is on increased Solu-Medrol dosing with increasing insulin requirements approximately 30 units total daily - Increase Lantus 20 units HS on 11/14/2069 6. Paroxysmal atrial tachycardia/atrial fibrillation, chronic, not present on admission. - Digoxin IV discussed in cardiogenic shock and systolic congestive heart failure 7. Chronic Hypertension, present on admission, stable. - Patient has been hypotensive and low normotensive during admission. - Patient currently requires pressor support with norepinephrine drip will be reevaluated daily - Captopril low-dose 3 times a day per cardiology recommendations 8. Chronic hyperlipidemia, present on admission, presumed stable - Continue atorvastatin. 9. Chronic depression, present on admission, stable. - hold sertraline 25 mg daily. 10. Tobacco dependence, chronic, present on admission - Nicotine patch available PRN. 11. Chronic obesity, present on admission, presumed stable. - Recommend weight loss with lifestyle changes. 12. Chronic venous insufficiency, present on admission, stable. - Monitor for signs of infection as the patient also has chronic cellulitis. - Antiemetics available PRN. - Bowel Regimen available PRN. - Nystatin powder available PRN. Disposition: Patient is likely to remain inpatient for a significantly extended period of time with significant morbidity and mortality associated to primary disease process and will need to be discharged with plans for cardiac rehabilitation. Pain Evaluation: Adequate Pain Control GI Prophylaxis: H2 gracie VTE Prophylaxis: Sub-Q Heparin (Unfractionated), SCDs VTE Mechanical Devices: Intermittant Pneumatic CD Resuscitation Status: CPR: Attempt Resuscitation Time spent Greater than 35 minutes Attending Statement The patient was seen and examined together with Dr. Miller on 11/14/2016 and I have added additional information to the note above. Kenrick Ho DO Nov 14, 2016 07:21 Gaby Mora DO Nov 14, 2016 15:33
--- NOTE | 2016-11-14 14:26 | NUR ---
PST Patient on 2 hour pressure support trial. Gently lightened sedation to keep patient calm. RR and volumes adequate however patient's oxygen saturations did gradually decline and settled at 83% .RT Made some adjustments and provided more support and oxygen levels stabilized at 88%to 90%. Vital signs stable. Lasix given this afternoon. Blood sugars starting to increase message left with MD.
[2016-11-14] MEDS: Insulin GLARgine 100 Unit/mL Syringe SUBQ SCH (21:09)
[2016-11-15] VITALS (13 sets, daily range): BP systolic 101–173; BP diastolic 61–99; PULSE 84–104; RESP 17–30; O2SAT 83–96
[2016-11-15] MEDS: Ipratropium 0.02% 0.5 mg/2.5 mL Inhalation Solution NEB SCH ×6 (00:55→20:30)
[2016-11-15] MEDS: Levalbuterol 1.25 mg/0.5mL Inhalation Solution NEB SCH ×6 (00:55→20:30)
[2016-11-15] MEDS: Propofol Inj 1,000,000 MCG in IV Premix 1 EACH IV SCH ×2 (01:24→06:32)
[2016-11-15] MEDS: Insulin Human REGular 300 Unit/3 mL Inj SUBQ SCH ×4 (02:38→19:38)
[2016-11-15] MEDS: Chlorhexidine 0.12% 15 mL Oral Solution MT SCH ×6 (04:43→19:18)
--- NOTE | 2016-11-15 04:46 | NUR ---
P: desaturation I: 100% FIO2, suction E: Reposition to R side. Gradually sats trend down to 90% on FIO2 at 50%, peep of 7. 100% FIO2 and suctioning would not maintain sats > 92%. Increase FIO2 to 55% and sats remain >93%. Fentanyl and propofol for sedation and comfort. Overbreathes vent rate. Opens eyes but unable to make eye contact or follow cues. Pulls against restraints. Tele SR. CVP 9-10. UOP edwige, 40ml+/hr. Tolerates TF. Elevated BS.
--- NOTE | 2016-11-15 05:41 | ABG ---
DateTimeAnalyzed 05:35:54 -_ pH ____7.436 - pCO2 ___56.9__ -mmHg pO2 ___71.4__ -mmHg HCO3- ___38.2__ -mmol/L ABE ___12.6__ -mmol/L tHb ___12.3__ -g/dL O2Hb ___94.2__ -% COHb ____1.8__ -% MetHb ___-0.3__ -% sO2 ___95.6__ -% FIO2 ___55.0__ -% PEEP ____7.0__ -cmH2O Set_RR 14 -b/min Vt __500.0__ -L Drawn By RB - Date/Time Notified____ 05:40:00 -_ Spontaneous_RR 14 -b/min Oxygen Device 1 VENTILATOR - Notified By RB - Notified Whom RENAE K, RN - B 763 -mmHg K+ ____4.7__ -mmol/L tO2 ___16.2__ -Vol% Collin test _Positive -
[2016-11-15 06:24] LABS: BASOPHILS % (AUTO) 0.1 % (0-3); EOSINOPHILS % (AUTO) 0 % (0-5); MONOCYTES % (AUTO) 9.7 % (4-12); NEUTROPHILS % (AUTO) 83.5 % (40-74); Platelet Count 231 bil/L (150-400)
--- NOTE | 2016-11-15 07:33 | PCM.PNMED ---
Subjective Date of Service Nov 15, 2016 Subjective Patient intubated and sedated so no ROS could be obtained. Overnight, the FiO2 setting had to be increased to .55 to maintain an O2 saturation in the low 90s. The patient was noted to be overbreathing the vent. Was opening his eyes but not following commands. He continues to tolerate his tube feeds. He has good urine output. Exam Vital Signs Vital Sign - Last Date Time Temp Pulse Resp B/P Pulse Ox O2 Delivery O2 Flow Rate FiO2 11/15/16 05:00 82 110/66 94 55 11/15/16 04:30 Ventilator 11/15/16 04:30 37.1 17 11/10/16 16:06 6.00 Intake and Output 11/14/16 11/14/16 11/15/16 Cumulative From/Thru 15:00 23:00 07:00 11/06/16 01:25 - 11/15/16 06:39 Intake Total 928 ml 1091 ml 26022 ml Output Total 1050 ml 810 ml 54035 ml Balance -122 ml 281 ml -4946 ml Intake Oral 300 ml IV Total 615 ml 326 ml 75066 ml Tube Feeding 273 ml 600 ml 2333 ml Tube Irrigant 40 ml 165 ml 775 ml Output Urine Total 1050 ml 810 ml 24425 ml Gastric Drainage Total 1500 ml # Bowel Movements 0 0 Exam General: Obese man appearing older than stated age, Intubated and sedated, lying in ICU bed. Eyes: PERRLA, anicteric sclera, noninjected conjunctiva HEENT: Normocephalic, atraumatic. External ears without defect. ET tube and OG tube in place. No oral thrush appreciated in oral cavity. Neck: Trachea midline, No jugular venous distension noted, supple, non-tender Cardiovascular: Regular rate and rhythm with no murmurs appreciated Pulmonary: Substantially decreased air movement in all lung marlow however significantly worse in left than right, coarse breath sounds appreciated in the lower lung marlow with the upper sounding clearer Abdomen: Soft to palpation, normoactive bowel tones, nontender, nondistended, no organomegaly noted, large umbilical hernia noted likely 20cm Extremities: No cyanosis or clubbing. Moderate edema in the hands. Mild edema in the lower extremities. Right upper extremity PICC line placement. Onychomycosis bilaterally in LE. Radial pulse present and equivalent bilaterally. Dorsalis pedis pulse difficult to appreciate bilaterally. Neuro: opens eyes to voice stimulus but follows no commands Cramer catheter in place Ventilator settings: FiO2 .55, PEEP 7, Rate 14, TV 500 IVs and Medications Medications Reviewed: Medications were reviewed in detail Lab and Diagnostics Result Diagram: 11/15/16 0550 11/14/16 0530 X-Rays, CTs and MRIs PROCEDURE: X-RAY CHEST ONE VIEW, PORTABLE IMPRESSION: Interval decreased bibasilar atelectasis. No acute cardiopulmonary disease. Dictated by: Mukesh Acevedo M.D. on 11/14/2016 at 6:49 Cardiac Echo Impressions Echocardiogram Report 11/06/2016 Interpretation Summary The left ventricle is borderline dilated. There is akinesis along the apical wall and severe hypokinesis along the anteroseptal wall. There is mild to moderate hypokinesis along the anterior wall. Left ventricular systolic function is moderate to severely reduced. The ejection fraction is estimated to be 35-40%. LVEF has decreased since prior study. Assessment of diastolic parameters indicates a relaxation abnormality of the left ventricle, consistent with normal filling pressures. The right ventricle is normal size. Right ventricular systolic function is mildly reduced. Both atria are mildly dilated. There is no significant valvular heart disease. The aortic root is mildly dilated. Reading Physician:PM Additional Diagnostics DIAGNOSTIC CARDIAC CATHETERIZATION FINDINGS: 1. LMCA: The left main coronary artery is intact. 2. LAD: The left anterior descending coronary artery is heavily calcified and initially occluded proximally at the small first septal. When opened, it is a medium-sized transapical vessel with severe diffuse disease in the proximal and mid portions. 3. LCX: The left circumflex coronary artery is a medium-sized vessel. The first OM is a medium-sized branching vessel with 80% lesions. The second OM is a medium-sized vessel with a 70% tubular proximal narrowing. Thereafter the mid LCX is a medium-sized vessel with a 70% proximal lesion. 4. RCA: Dominant. A 90% tubular proximal lesion. The right coronary artery is a large vessel with a large PDA and a large RPLB. 5. LHC: LVED of 20 mmHg; and no systolic gradient across the aortic valve on pullback. Systolic blood pressure 100. CONCLUSIONS: 1. PCI of proximal occluded LAD--Vision BMS--2.5 x 23 mm post dilated to 2.75 mm. 2. ACS--anterior SD with culprit occluded proximal LAD. 3. Coronary artery disease (CAD)--three-vessel disease including occluded proximal LAD; 80% OM 1, 70% mid LCX; and 90% proximal RCA. Kyler Marin MD 11/06/16 0857 INTERVENTIONAL CARDIAC CATHETERIZATION CONCLUSION: 1. Moderate pulmonary hypertension. 2. Cardiac index is 2.6 L/minute per m2. 3. Mean pulmonary capillary wedge pressure is 35 mmHg. 4. The left anterior descending artery has reoccluded in the proximal portion. 5. Severe 90% proximal right coronary artery stenosis. This was successfully treated with one occluding stent. 6. Severe 70% 1st obtuse marginal branch stenosis. This was successfully treated with one occluding stent. Sosa Mejia MD 11/10/16 4509 Assessment & Plan Patient is a 66 gentleman with past medical history significant for coronary artery disease, hypertension, congestive heart failure, dyslipidemia, and history of non compliance with multiple AGAINST MEDICAL ADVICE discharges admitted for STEMI with stent placement to left anterior descending coronary artery. Patient is unable to lay down at baseline secondary to his chronic lung disease and would only agree to catheterization if he was sedated. Patient intubated and sedated for laborer cook house and admitted to ICU for ventilation management. Hospital Day [address] elevation myocardial infarction, present on admission, improving. - Patient initially stented on day of admission with bare metal stent to left anterior descending coronary artery. Patient taken back to cardiac laborer cook house showed occluded LAD stent with significant notable wall motion abnormality consistent with severe myocardial infarction at admission. Two drug -eluting stents placed in the proximal right coronary artery and left marginal obtuse. - Patient will need at least 1 year of Plavix 75 mg daily given his drug- eluting stents with recommendations to take baby aspirin daily indefinitely. Continuing those at this time through OG tube. - Cardiology continues to follow the patient and we appreciate their recommendations. 2. Cardiogenic shock, not present on admission, improving. - Secondary to significant wall motion abnormality with worsening ejection fraction DOWN to 20% from 35%. - Patient was requiring vasopressor agents due to hypotension. Patient weaned from norepinephrine on 11/12/16. - Continue captopril 3.125 mg TID in an effort to reduce afterload. - Cardiology has been consulted and we appreciate their continued expertise. 3. Acute on chronic hypoxic respiratory failure, not present on admission, ongoing. - Patient uses 2-3 L supplemental O2 with significant orthopnea at baseline. - Patient required 3 days of mechanical ventilation after initial cardiac catheterization on November 06 before being extubated on 11/09/2016. Patient was taken back to cardiac laborer cook house 11/10/2016 and required a second intubation. - Fentanyl and propofol for sedation. Keep doses as low as tolerated by patient. Continue daily sedation vacation. - Based on chest x-ray from 11/13/16, concerns for development of new pneumonia contributing to increased O2 needs. Infectious disease consult did not believe this patient is acutely infectious at this time. Continue azithromycin as below in #4. - Continue pressure support trials as tolerated by the patient. - Dr. Park of pulmonology has been consulted and we appreciate her expertise. 4. Chronic Obstructive Pulmonary Disease with chronic respiratory failure, present on admission, ongoing. - Did not appear to be having exacerbation at time of admission. Patient uses 2 -3 L supplemental O2 in his car. - Continue levalbuterol neb q4 and ipratropium q4 scheduled. - Continue Solu-Medrol 40 mg IV q8. - Continue Azithromycin 500 daily. 5. Acute on chronic Systolic Congestive Heart Failure secondary to ischemic cardiomyopathy, present on admission. Ongoing - Patient did not appear to be decompensated at time of admission. Echo performed 11/06/16 showed EF 35-40% which is decreased from prior study. On evaluation during cardiac catheterization EF approximately 20-22% decreased from the initial EF at presentation during this hospitalization. - Lasix 40 mg one time dose as needed for diuresis. - Metoprolol 5 mg IV for sustained tachycardia greater than 120. - Captopril 3.125 mg TID as patient's blood pressure can tolerate. 6. Chronic Diabetes Mellitus type 2, present on admission, ongoing. - Hemoglobin A1C 10.3 this admission. - Patient currently receiving tube feeds. - Continue high dose correction scale of regular insulin. - Continue Lantus 20 units HS. Will continue to evaluate if this dose is appropriate and increase as needed for better management of blood glucose. 7. Paroxysmal atrial tachycardia/atrial fibrillation, chronic, not present on admission. - Continue digoxin 0.25 mg daily. - Continue baby aspirin daily. Since patient is known to be noncompliant with many recommended therapies, is likely a poor candidate for anticoagulation. - Continue telemetry. 8. Chronic Hypertension, present on admission, stable. - Patient has been hypotensive and low normotensive during admission. - Patient currently off pressor support. Continuing to monitor closely. - Continue captopril 3.125 mg TID as tolerated by patient per cardiology recommendations. 9. Chronic hyperlipidemia, present on admission, presumed stable - Continue atorvastatin 40 mg HS. 10. Chronic depression, present on admission, stable. - Continue sertraline 25 mg daily. 11. Tobacco dependence, chronic, present on admission - Nicotine patch available PRN. 12. Chronic obesity, present on admission, presumed stable. - Recommend weight loss with lifestyle changes. 13. Chronic venous insufficiency, present on admission, stable. - Monitor for signs of infection as the patient also has chronic cellulitis. - Antiemetics available PRN. - Bowel Regimen available PRN. - Nystatin powder available PRN. Disposition: Patient is likely to remain inpatient for a significantly extended period of time with significant morbidity and mortality associated to primary disease process and will need to be discharged with plans for cardiac rehabilitation. GI Prophylaxis: H2 gracie VTE Prophylaxis: Sub-Q Heparin (Unfractionated), SCDs VTE Mechanical Devices: Intermittant Pneumatic CD Resuscitation Status: CPR: Attempt Resuscitation Time spent 35 minutes Attending Statement The patient was seen and examined together with Dr. Abel on 11/15/16 and I agree with the history, exam and plan as outlined in the note above. Meg Abel DO Nov 15, 2016 07:33 Gaby Mora DO Nov 15, 2016 15:35 disease process and will need to be discharged with plans for cardiac rehabilitation. GI Prophylaxis: H2 gracie VTE Prophylaxis: Sub-Q Heparin (Unfractionated), SCDs VTE Mechanical Devices: Intermittant Pneumatic CD Resuscitation Status: CPR: Attempt Resuscitation Meg Abel DO Nov 15, 2016 07:33
[2016-11-15 07:37] LABS: Magnesium 2.4 mg/dL (1.6-2.6); Phosphorus 3.2 mg/dL (2.5-4.9)
--- NOTE | 2016-11-15 07:42 | DRSVH ---
PROCEDURE: X-RAY CHEST ONE VIEW, PORTABLE ([id number]) INDICATIONS: vent TECHNIQUE: One view of the chest was acquired. COMPARISON: [facility], CR, XR CHEST 1VW (PORTABLE), 11/14/2016, 5:20. FINDINGS: Surgical changes and devices: ETT is in expected position. Right arm PICC is present, tip of which is in the mid SVC. Lungs and pleura: No pleural effusions or pneumothorax. Lungs are clear. Mediastinum: Mediastinal contours appear normal. Heart size is normal. Bones and chest wall: No suspicious bony lesions. Overlying soft tissues appear unremarkable. IMPRESSION: No acute process. Dictated by: Fidel Moran M.D. on 11/15/2016 at 7:40 Approved by: Fidel Moran M.D. on 11/15/2016 at 7:41
[2016-11-15] MEDS: Sodium Chloride LOK Flush 10 mL Syringe IVFLUSH SCH ×2 (08:27→17:02)
[2016-11-15] MEDS: Azithromycin Inj 500 MG in Dextrose 5% w/Vial Mate 250 ML IV SCH (08:36)
[2016-11-15] MEDS: Famotidine Inj 20 MG in IV Premix 1 EACH IV SCH ×2 (08:36→19:36)
[2016-11-15] MEDS: MethylprednisoLONE Sodium Succinate 40 mg/mL Inj IVPUSH SCH ×2 (08:36→17:01)
[2016-11-15] MEDS: Heparin 5,000 Unit/mL Inj SUBQ SCH ×2 (08:36→17:01)
[2016-11-15] MEDS: Nystatin 100,000 Unit/Gm 15 Gm Powder TOPICAL SCH ×2 (08:37→19:36)
[2016-11-15] MEDS: Furosemide 10 mg/mL 4 mL Inj IVPUSH SCH ×2 (09:37→19:36)
[2016-11-15] MEDS: Digoxin 0.25 mg/mL 2 mL Inj IV SCH (12:51)
--- NOTE | 2016-11-15 13:04 | PROG NOTE ---
[address] [address] PROGRESS NOTE PATIENT: JULIA LUNA : 1950 MR#: [id number] ADMIT: 11/06/2016 JOB ID: [id number] DATE: 11/15/2016 REASON FOR FOLLOWUP: Ventilator dependent respiratory failure with possible superimposed infection. INTERVAL HISTORY: Recall, this is a patient we saw originally two days ago in consult. He is a complex patient with underlying severe organic heart disease, as well as COPD and homeless status. He is frequently admitted here with complications of cardiac disease, as well as COPD, and the question was did he have any infection. At the time of our initial consult two days ago, we do not think so and today is a re-evaluation of that. INTERVAL HISTORY: Over the past couple days, the patient has remained relatively stable on the ventilator, and there are now plans underway to possibly extubate him later today. He has been free of fever, thick respiratory secretions. This case was discussed in person with the ICU nurse, as well as the ICU attending in great detail. The patient remains intubated and sedated. Obviously, no history from him, though he may soon be extubated. PHYSICAL EXAMINATION: Temperature 37.1, pulse 92, blood pressure 105/63, saturating well on 50% and 5 of PEEP. Eyes without conjunctivitis or scleral icterus. Oral endotracheal tube, oral gastric tube in good position. Lungs with scattered rhonchi, especially at the left base. Otherwise, relatively clear. Cardiac tones without new murmur. Abdomen soft, apparently nontender, without organomegaly or ascites. Cramer catheter in place. No skin rash noted. LABORATORIES: Include white count 8700, platelet count 231,000, creatinine 0.78. LFTs normal. BNP 3808. Procalcitonin has continued to wander between 0.1 and 0.2. Micro studies are entirely negative including a sputum, which had relatively little in the way of white cells and was culture negative. MRSA screens were negative. Multiple additional sputum cultures have been negative. Blood cultures have been negative. A chest x-ray done this morning shows no acute process. Lungs essentially clear. IMPRESSION: There is no nothing here to suggest a pneumonia or tracheobronchitis. Procalcitonins are basically negative, all the recent ones less than 0.25 and I see nothing here to suggest infection in this ventilator dependent gentleman with underlying cardiac and pulmonary disease. RECOMMENDATIONS: 1. No antibiotics. 2. I would stop checking procalcitonins. 3. I note that the patient is on azithromycin, which I think is prudent in terms of COPD management, but I would not be considering it as an antibiotic in this particular circumstance. 4. ID will go ahead and sign off at this time.
--- NOTE | 2016-11-15 13:48 | PROG NOTE ---
[address] [address] PROGRESS NOTE PATIENT: JULIA LUNA : 1950 MR#: [id number] ADMIT: 11/06/2016 JOB ID: [id number] DATE: 11/15/2016 PULMONARY CRITICAL CARE PROGRESS NOTE: The patient is a 66-year-old man with history of personality disorder, admitted with ST-elevation ME, requiring stenting and also acute hypoxic respiratory failure. INTERVAL HISTORY: He is doing very well on a spontaneous breathing trial this morning. Opens eyes and tries to nod in response to questions. REVIEW OF SYSTEMS: Unable to obtain. PHYSICAL EXAMINATION: Vital signs reviewed. Temperature 37.1, pulse 90, respirations 23, BP 105/63, sats 92% on 50% FiO2. General: Intubated, sedated, but opens his eyes and tries to nod to questions. Chest is clear. LABORATORIES: Reviewed. WBC 8.7. Chemistry also reviewed and within normal limits except for bicarb of 30. Procalcitonin is 0. Chest x-ray reviewed and shows clear pulmonary parenchyma. Cultures: No growth on blood and sputum cultures. ASSESSMENT AND RECOMMENDATIONS: 1. Acute hypoxic respiratory failure--intubated for cardiac cath on November 10. 2. Acute ST-elevation myocardial infarction, status post bare-metal stent in left anterior descending on November 07, which was complicated by a reocclusion of stent and subsequent drug-eluting stents in right coronary artery and left circumflex on November 10. 3. Personality disorder with behavioral issues. 4. Chronic obstructive pulmonary disease exacerbation. The patient presented on November [address]-elevation ME for which a bare-metal stent was placed by Dr. Marin. He has a history of repeated ER visits and noncompliance, being threatening and difficult with staff. He had requested to be intubated for the procedure and this was done. He was extubated a few days later. He also had evidence of disease in the right coronary artery and left circumflex so he was taken back to cardiac cath on November [address] Mejia this time and was intubated electively for the procedure again. This time we had a little more difficulty with hypoxia and I was concerned that he might have a pneumonia, but all the tests so far have been negative for infection. We did increase his corticosteroids for COPD exacerbation and I added azithromycin, and with this, it appears his respiratory status has improved and he is passing his spontaneous breathing trial today. We are going to go ahead and extubate him after his SBT. I am continuing to give him Lasix and we will repeat a dose today. I think we should try to taper his steroids after tomorrow--from Solu-Medrol 40 IV q.8 h. down to q.12. The azithromycin should only be for five days. Dr. Hare takes over the pulmonary service tomorrow. I increased his CHERI inhibitor dose per Cardiology recommendations today. He is also getting Plavix. CRITICAL CARE TIME: 40 minutes.
[2016-11-15] MEDS: fentaNYL 2,500 mCg/250 mL 2,500 MCG in IV Premix 1 EACH IV SCH (15:15)
--- NOTE | 2016-11-15 15:25 | NUR ---
Social Work Note: Continued Discharge Planning Data& Assessment: Pt has been extubated. Pt is currently on 6L 02. Per MD, pt remains medically complex and fragile. SW to continue to follow for medical progression, prognosis and discharge planning when appropriate. SW to continue to follow. Plan: Pt has been extubated but remains medically complex. SW to continue to follow for medical progression. SURESH Currie
--- NOTE | 2016-11-15 16:58 | PROG NOTE ---
[address] [address] PROGRESS NOTE PATIENT: JULIA LUNA : 1950 MR#: [id number] ADMIT: 11/06/2016 JOB ID: [id number] DATE: 11/15/2016 CHIEF COMPLAINT: The patient came with an anterior MA. He had stenting of the left anterior descending artery which unfortunately subacutely thrombosed. Is identified on a followup cardiac catheterization. At the followup cardiac catheterization he had placement of stents to the circumflex and right coronary artery. He did get aspirin and Plavix this morning before his extubation but he has not had any other cardiac meds as he has not passed a swallowing test. SUBJECTIVE: He is somewhat interactive today. His voice is somewhat diminished likely related to the intubation. Vital signs show a blood pressure which is in the range of 105-173. Heart rate is 92-104. Afebrile. Sats 93% on 6 L. General: In no acute distress. Was appearing somewhat short of breath. Head and neck exam: Normocephalic, atraumatic. Heart exam: Distant sounds. Tachycardic. Lungs: Somewhat coarse breath sounds. Abdomen soft. Extremities: Warm with 2+ DP pulses appreciated. CURRENT MEDICATIONS: Many of these have not been given but he did receive aspirin and Plavix and I have clarified that with the nursing staff. LABORATORIES: Show white count 8.7, H and H 12.2, 38.8, platelets of 231,000. Chemistry shows sodium 140, potassium 5, chloride and bicarb 97 and 30, respectively. BUN and creatinine 45.78. ProBNP 3808. IMAGING: Today shows no acute process. IMPRESSION: This is a gentleman who came in with an anterior myocardial infarction. He had an left anterior descending stent which unfortunately thrombosed. At that time this was identified it was felt to be futile to open the re-occluded stent. However, at that time, he had circumflex and right coronary artery stents placed. The patient remained intubated, now is extubated. He is yet to pass a swallowing test. PLAN: 1. We will need to have him be able to take p.o. medications as he needs to continue with the aspirin and the Plavix. 2. Continue to follow with the ICU team on this patient. I spent 30 minutes of ICU level time speaking with and examining the patient as well as speaking with the hospital team RINA
--- NOTE | 2016-11-15 17:13 | NUR ---
Extubated this morning following PS trial/sedation vacation. Currently maintaining sats 92-93% on 8L/oxymask, RR 20-30s, mildly distressed. HR elevated, 100s, BP 140-170s, MD aware; administering metoprolol. Continues to swear and attempt to yell, though his voice is hoarse, difficult to understand. Speech to eval. Sinus tachycardia, rare PVC, 7-beat run of v-tach noted this afternoon/asymptomatic, MD aware. Denies pain when asked. No visitors this shift. Brisk UOP via barrett cath, received Lasix this morning.
[2016-11-15] MEDS: Insulin GLARgine 100 Unit/mL Syringe SUBQ SCH (19:39)
[2016-11-16] VITALS (10 sets, daily range): BP systolic 106–144; BP diastolic 60–91; PULSE 91–101; RESP 20–28; O2SAT 81–96
[2016-11-16] MEDS: Levalbuterol 1.25 mg/0.5mL Inhalation Solution NEB SCH ×6 (00:30→19:46)
[2016-11-16] MEDS: Ipratropium 0.02% 0.5 mg/2.5 mL Inhalation Solution NEB SCH ×6 (00:30→19:46)
[2016-11-16] MEDS: MethylprednisoLONE Sodium Succinate 40 mg/mL Inj IVPUSH SCH ×3 (01:03→18:29)
[2016-11-16] MEDS: Heparin 5,000 Unit/mL Inj SUBQ SCH ×3 (01:03→18:33)
[2016-11-16] MEDS: Sodium Chloride LOK Flush 10 mL Syringe IVFLUSH SCH ×4 (01:03→22:07)
--- NOTE | 2016-11-16 02:07 | NUR ---
Refusal of care Pt refusing all nebulizer treatments and some medications. He is also refusing turns and position changes. Extensive education given, especially regarding nebulizers and his current increased respiratory drive. Pt RR high 20s with audible wheezing and mild respiratory distress. Currently compliant with Oxymask. Will continue to monitor and educate pt. Care ongoing
[2016-11-16] MEDS: Insulin Human REGular 300 Unit/3 mL Inj SUBQ SCH ×4 (02:27→20:30)
[2016-11-16 06:09] LABS: BASOPHILS % (AUTO) 0.3 % (0-3); EOSINOPHILS % (AUTO) 0.1 % (0-5); MONOCYTES % (AUTO) 6.9 % (4-12); Mean Corpuscular Hemoglobin 27.8 pg (27.0-35.0); Mean Corpuscular Volume 87.2 fL (81-100); NEUTROPHILS % (AUTO) 84.8 % (40-74); Platelet Count 300 bil/L (150-400)
[2016-11-16 06:33] LABS: Magnesium 2.3 mg/dL (1.6-2.6)
[2016-11-16] MEDS: Chlorhexidine 0.12% 15 mL Oral Solution MT SCH ×4 (08:30→20:30)
[2016-11-16] MEDS: Famotidine Inj 20 MG in IV Premix 1 EACH IV SCH ×2 (10:09→22:05)
[2016-11-16] MEDS: Nystatin 100,000 Unit/Gm 15 Gm Powder TOPICAL SCH ×2 (10:18→20:30)
--- NOTE | 2016-11-16 11:00 | NUR ---
Refusing cares Pt refused AM neb treatment despite education provided on benefits. Refusing intermittently to wear oxygen. O2 levels down to 79%. Attempting to get out of bed at every chance. Asking staff members to help him and reaching out for help to get out. Pt accepted IV meds but refused any PO meds. Breathing appears distressed. Denies any discomfort, refuses pain meds.
[2016-11-16] MEDS: Azithromycin Inj 500 MG in Dextrose 5% w/Vial Mate 250 ML IV SCH (12:47)
[2016-11-16] MEDS: Furosemide 10 mg/mL 4 mL Inj IVPUSH SCH ×2 (12:59→22:05)
--- NOTE | 2016-11-16 13:22 | NUR ---
Evaluation completed. Please go to "Notes" then click on "Assessments and Notes" (bottom left corner of screen). Then select appropriate discipline tab on top of screen.
--- NOTE | 2016-11-16 13:27 | NUR ---
NUTRITION FOLLOW-UP: ASSESS: 66 YO M admitted to the ED with STEMI. Pt intubated s/p heart cath procedure. Pt extubated 11/09, re-intubated, then extubated 11/15. Pt NPO per speech therapy. Pt refusing care per notes. PMHx: Noncompliance, homeless, COPD, HTN, CHF, CAD, DM II, LLE cellulitis, hypertriglyceridemia, A-fib, history of leaving hospital AMA and abusive to staff. DIET: NPO NUTRITION SUPPORT: (ON HOLD) Glucerna 1.5 @ 46 ml/hr. LABS: BUN 49, Cr 0.70, Gl u153 MEDICATIONS: Reviewed. Lasix, Insulin, Solu-medrol GI: No BM reported. SKIN: No issues mentioned. ANTHROPOMETRICS: Current Wt: 92.9 kg, BMI 31.1 kg/m2. Admit weight: 109 kg, IBW: 70 kg ESTIMATED NEEDS (BMI) Calories: 1940-2135kcal/day (20-22 kcal/kg BW) Protein: 84-105 g protein (1.2-1.5 g/kg IBW) Fluid: Approx. 2425 mL (25 mL/kg BW) NUTRITION DIAGNOSIS: 1) Inadequate oral intake related to inability to consume sufficient energy, as evidenced by NPO status - PERSISTS. INTERVENTION: 1) Diet advancement per speech therapy. 2) If unable to advance diet, resume enteral nutrition of Glucerna 1.5 @ 46 ml/hr. MONITOR/EVALUATE: NPO status, diet advance/tolerance, labs, GI/nutrition status. Follow per high nutrition risk guidelines.
[2016-11-16] MEDS: Digoxin 0.25 mg/mL 2 mL Inj IV SCH (14:07)
--- NOTE | 2016-11-16 15:46 | NUR ---
Social Work Note: Continued Discharge Planning Data& Assessment: Pt remains medically complex per MD in morning rounds. Per RN, pt has been making statements about wanting to and refusing medical treatment. Per MD request, [facility] specialist placing [facility]. Pt is homeless and does not have a home or local family members or friends for Hospice services to be established on an outpt basis. Per MD, pt does meet criteria for [facility] and would pass within two weeks if pt discontinues clinical treatment and continues limited use of oxygen. Pt respiratory and cardiac status is declining. Pt would like to pursue end of life care, referral placed to [facility]. SW to continue to follow. Plan: Anticipated discharge to [facility] pending acceptance. SW to continue to follow. SURESH Currie
--- NOTE | 2016-11-16 15:54 | NUR ---
REFUSING CARE Patient refusing to wear his oxygen, or take any medications this morning. Patient also refusing to follow the speech therapist diet recommendations. Risks gone over with the patient including . Patient 's oxygen saturation on RA was 72%. Patient states" I don't care let me ." Im going to do what I want and if I I " When asked if the patient would want CPR if his heart would stop he reported back " of coarse not let me , I'm miserable." The patient did refuse any pain medication stating " Just leave me a lone I don't need any thing. " Patient also refused his telemetry and pulled it off.
--- NOTE | 2016-11-16 18:47 | NUR ---
Medications/agitation Pt refused most medications in the morning but agreed to take them later on as the day went on. Took meds fine crushed in vanilla pudding. No thin liquids. Pt received morphine 1mg around 1510 for generalized all over pain. Stated later the medication helped and he was no longer in pain/no longer trying to get out of bed. Pt currently not complaining of any pain but presents very restless, agitated, and impulsive.
--- NOTE | 2016-11-16 21:13 | PCM.PNMED ---
Subjective Date of Service Nov 16, 2016 Subjective Overnight: Pt refused care, refused medications. He remains extubated and on supplemental O2 Today Pt is awake and alert. Still refusing care though he wishes to leave the hospital. After a candid conversation about the state of his health he communicated acceptance and wished to start taking his pain medications. Sister present in the room at time of interview. He is aware that he can not be discharged to home though was willing to explore the possibility of hospice care. Exam Vital Signs Vital Sign - Last Date Time Temp Pulse Resp B/P Pulse Ox O2 Delivery O2 Flow Rate FiO2 11/16/16 14:07 100 11/16/16 10:27 36.4 25 106/60 96 OxyMask 5.00 11/15/16 08:10 50 Intake and Output 11/15/16 11/15/16 11/16/16 Cumulative From/Thru 15:00 23:00 07:00 11/06/16 01:25 - 11/16/16 06:25 Intake Total 406 ml 130 ml 92545 ml Output Total 2000 ml 1200 ml 61677 ml Balance -1594 ml -1070 ml -7610 ml Intake Oral 0 ml 300 ml IV Total 406 ml 130 ml 50817 ml Tube Feeding 2333 ml Tube Irrigant 775 ml Output Urine Total 2000 ml 1200 ml 36487 ml Gastric Drainage Total 1500 ml # Bowel Movements 0 0 0 Exam General: Pt laying in hospital bed, working hard to breath, oxymask in place. Awake and alert and able to answer questions appropriately HEENT: Normocephalic, atraumatic. Neck: No jugular venous distension. Cardiovascular: Regular rate and rhythm Pulmonary: Clear to auscultation bilaterally - PT refused thorough physical exam Psychiatric: Normal mood and affect, per Pt's baseline Alert and oriented to person, place, and time. IVs and Medications Medications Reviewed: Medications were reviewed in detail Lab and Diagnostics Result Diagram: 11/16/16 0600 11/16/16 0600 X-Rays, CTs and MRIs PROCEDURE: X-RAY CHEST ONE VIEW, PORTABLE IMPRESSION: Interval decreased bibasilar atelectasis. No acute cardiopulmonary disease. Dictated by: Mukesh Acevedo M.D. on 11/14/2016 at 6:49 Cardiac Echo Impressions Echocardiogram Report 11/06/2016 Interpretation Summary The left ventricle is borderline dilated. There is akinesis along the apical wall and severe hypokinesis along the anteroseptal wall. There is mild to moderate hypokinesis along the anterior wall. Left ventricular systolic function is moderate to severely reduced. The ejection fraction is estimated to be 35-40%. LVEF has decreased since prior study. Assessment of diastolic parameters indicates a relaxation abnormality of the left ventricle, consistent with normal filling pressures. The right ventricle is normal size. Right ventricular systolic function is mildly reduced. Both atria are mildly dilated. There is no significant valvular heart disease. The aortic root is mildly dilated. Reading Physician:PM Additional Diagnostics DIAGNOSTIC CARDIAC CATHETERIZATION FINDINGS: 1. LMCA: The left main coronary artery is intact. 2. LAD: The left anterior descending coronary artery is heavily calcified and initially occluded proximally at the small first septal. When opened, it is a medium-sized transapical vessel with severe diffuse disease in the proximal and mid portions. 3. LCX: The left circumflex coronary artery is a medium-sized vessel. The first OM is a medium-sized branching vessel with 80% lesions. The second OM is a medium-sized vessel with a 70% tubular proximal narrowing. Thereafter the mid LCX is a medium-sized vessel with a 70% proximal lesion. 4. RCA: Dominant. A 90% tubular proximal lesion. The right coronary artery is a large vessel with a large PDA and a large RPLB. 5. LHC: LVED of 20 mmHg; and no systolic gradient across the aortic valve on pullback. Systolic blood pressure 100. CONCLUSIONS: 1. PCI of proximal occluded LAD--Vision BMS--2.5 x 23 mm post dilated to 2.75 mm. 2. ACS--anterior NC with culprit occluded proximal LAD. 3. Coronary artery disease (CAD)--three-vessel disease including occluded proximal LAD; 80% OM 1, 70% mid LCX; and 90% proximal RCA. Kyler Marin MD 11/06/16 0857 INTERVENTIONAL CARDIAC CATHETERIZATION CONCLUSION: 1. Moderate pulmonary hypertension. 2. Cardiac index is 2.6 L/minute per m2. 3. Mean pulmonary capillary wedge pressure is 35 mmHg. 4. The left anterior descending artery has reoccluded in the proximal portion. 5. Severe 90% proximal right coronary artery stenosis. This was successfully treated with one occluding stent. 6. Severe 70% 1st obtuse marginal branch stenosis. This was successfully treated with one occluding stent. Sosa Mejia MD 11/10/16 5882 Assessment & Plan Patient is a 66 gentleman with past medical history significant for coronary artery disease, hypertension, congestive heart failure, dyslipidemia, and history of non compliance with multiple AGAINST MEDICAL ADVICE discharges admitted for STEMI with stent placement to left anterior descending coronary artery. Patient is unable to lay down at baseline secondary to his chronic lung disease and would only agree to catheterization if he was sedated. Patient intubated and sedated for pipelines laborer and admitted to ICU for ventilation management. Hospital Day 11. Pt changed code status to DNR/DNI today 1. ST elevation myocardial infarction, present on admission. - Patient initially stented on day of admission with bare metal stent to left anterior descending coronary artery. Patient taken back to cardiac pipelines laborer showed occluded LAD stent with significant notable wall motion abnormality consistent with severe myocardial infarction at admission. Two drug -eluting stents placed in the proximal right coronary artery and left marginal obtuse. - PT has been non compliant with medications post extubation - Cardiology continues to follow the patient and we appreciate their recommendations. 2. Cardiogenic shock, not present on admission, improving. - Secondary to significant wall motion abnormality with worsening ejection fraction DOWN to 20% from 35%. - Patient was requiring vasopressor agents due to hypotension. Patient weaned from norepinephrine on 11/12/16. - Continue captopril 6.25 mg TID in an effort to reduce afterload. 3. Acute on chronic hypoxic respiratory failure, not present on admission, ongoing. - Patient uses 2-3 L supplemental O2 with significant orthopnea at baseline. - Patient required 3 days of mechanical ventilation after initial cardiac catheterization on November 06 before being extubated on 11/09/2016. Patient was taken back to cardiac pipelines laborer 11/10/2016 and required a second intubation. - Successful extubation on 11/15/2016 - Based on chest x-ray from 11/13/16, concerns for development of new pneumonia contributing to increased O2 needs. Infectious disease consult did not believe this patient is acutely infectious at this time. Continue azithromycin as below in #4. - Pulmonology has been consulted and we appreciate her expertise. 4. Chronic Obstructive Pulmonary Disease with chronic respiratory failure, present on admission, ongoing. - Did not appear to be having exacerbation at time of admission. Patient uses 2 -3 L supplemental O2 in his car. - Continue levalbuterol neb q4 and ipratropium q4 scheduled. - Continue Solu-Medrol 40 mg IV q8. - Continue Azithromycin 500 daily. 5. Acute on chronic Systolic Congestive Heart Failure secondary to ischemic cardiomyopathy, present on admission. Ongoing - Patient did not appear to be decompensated at time of admission. Echo performed 11/06/16 showed EF 35-40% which is decreased from prior study. On evaluation during cardiac catheterization EF approximately 20-22% decreased from the initial EF at presentation during this hospitalization. - Lasix 40 mg as needed for diuresis. - Metoprolol 5 mg IV for sustained tachycardia greater than 120. - Captopril 6.25 mg TID as patient's blood pressure can tolerate. 6. Chronic Diabetes Mellitus type 2, present on admission, ongoing. - Hemoglobin A1C 10.3 this admission. - Patient currently receiving tube feeds. - Continue high dose correction scale of regular insulin. - Continue Lantus 20 units HS. Will continue to evaluate if this dose is appropriate and increase as needed for better management of blood glucose. 7. Paroxysmal atrial tachycardia/atrial fibrillation, chronic, not present on admission. - Continue digoxin 0.25 mg daily. - Continue baby aspirin daily. Since patient is known to be noncompliant with many recommended therapies, is likely a poor candidate for anticoagulation. - Continue telemetry. 8. Chronic Hypertension, present on admission, stable. - Patient has been hypotensive and low normotensive during admission. - Patient currently off pressor support. Continuing to monitor closely. - Continue captopril 3.125 mg TID as tolerated by patient per cardiology recommendations. 9. Chronic hyperlipidemia, present on admission, presumed stable - Continue atorvastatin 40 mg HS. 10. Chronic depression, present on admission, stable. - Continue sertraline 25 mg daily. 11. Tobacco dependence, chronic, present on admission - Nicotine patch available PRN. 12. Chronic obesity, present on admission, presumed stable. - Recommend weight loss with lifestyle changes. 13. Chronic venous insufficiency, present on admission, stable. - Monitor for signs of infection as the patient also has chronic cellulitis. - Antiemetics available PRN. - Bowel Regimen available PRN. - Nystatin powder available PRN. Disposition: Patient is likely to remain inpatient for a significantly extended period of time with significant morbidity and mortality associated to primary disease process. Pt will not be discharged to home, considering discharge to hospice care at this point. Pt changed code status to DNR/DNI today GI Prophylaxis: H2 gracie VTE Prophylaxis: Sub-Q Heparin (Unfractionated), SCDs VTE Mechanical Devices: Intermittant Pneumatic CD Resuscitation Status: CPR: Attempt Resuscitation Attending Statement The patient was seen and examined together with Dr. Wise on 11/16/2016 and I agree with the history, exam and plan as outlined in the note above. . HARINDER WISE DO Nov 16, 2016 14:20 Mariano Porter MD Nov 20, 2016 18:55
[2016-11-16] MEDS: Insulin GLARgine 100 Unit/mL Syringe SUBQ SCH (22:06)
[2016-11-17] VITALS (7 sets, daily range): BP systolic 91–126; BP diastolic 63–85; PULSE 82–99; RESP 18–24; O2SAT 82–98
[2016-11-17] MEDS: Levalbuterol 1.25 mg/0.5mL Inhalation Solution NEB SCH ×6 (00:18→20:02)
[2016-11-17] MEDS: Ipratropium 0.02% 0.5 mg/2.5 mL Inhalation Solution NEB SCH ×6 (00:18→20:02)
[2016-11-17] MEDS: Chlorhexidine 0.12% 15 mL Oral Solution MT SCH ×7 (00:19→23:25)
[2016-11-17] MEDS: MethylprednisoLONE Sodium Succinate 40 mg/mL Inj IVPUSH SCH ×4 (00:19→23:25)
[2016-11-17] MEDS: Heparin 5,000 Unit/mL Inj SUBQ SCH ×4 (00:19→23:25)
[2016-11-17] MEDS: Insulin Human REGular 300 Unit/3 mL Inj SUBQ SCH ×4 (02:55→20:30)
--- NOTE | 2016-11-17 04:49 | NUR ---
Mobility / Respiratory / Compliance Pt refused vitals this shift; agreeable to medications and nebulizer treatment once explained that his lungs were wheezy and the treatments would alleviate difficulty breathing. Pt accepted all HS medications except mouthwash; allowed BP measurements prior to BP medication administration. After HS medications, pt began attempting to exit bed despite education and rationale otherwise; pt stated "I think I can stand, I want to get out of this place." Siderails lowered and SCDs disconnected so pt could attempt to stand; pt unable to lift self to side of bed to sit. After failed attempt to sit up on his own, pt significantly less restless in bed; apologized to this RN for "being a shit". Pt encouraged to rest, to which pt responded "I can't sleep. A .357 would help." Pt compliant again with 0030 medications of nebulizer and steroid for breathing, but refused heparin injection. Pt allows Q6H BG checks along with subsequent insulins; when asked if interventions are acceptable, pt shrugs or says "I don't care." Pt frequently removing oxygen mask in bed; dusky and cold on RA with SpO2 approx. 80%. Pt states initially that he doesn't want oxygen on; when explained that oxygen supplementation is necessary to prevent and asked if this RN can replace mask for pt, pt responds "If you want." Pt refuses/unable to expectorate sputum; swallows/chokes on secretions. No apparent sleep obtained this shift.
[2016-11-17] MEDS: Nystatin 100,000 Unit/Gm 15 Gm Powder TOPICAL SCH ×2 (08:30→20:30)
--- NOTE | 2016-11-17 09:01 | NUR ---
Faxed [place] to [facility] [place] [facility] [place]endum: 11/17/16 at 1159 by JANNIE PALOMO CM Faxed updated information to [facility] , which included POLST, Comfort Care Order Set, Med profile set. [place] [facility]
[2016-11-17] MEDS: Furosemide 10 mg/mL 4 mL Inj IVPUSH SCH ×2 (09:15→20:30)
[2016-11-17] MEDS: Famotidine Inj 20 MG in IV Premix 1 EACH IV SCH (09:15)
[2016-11-17] MEDS: Sodium Chloride LOK Flush 10 mL Syringe IVFLUSH SCH ×3 (09:27→23:25)
[2016-11-17] MEDS: Azithromycin Inj 500 MG in Dextrose 5% w/Vial Mate 250 ML IV SCH (09:27)
--- NOTE | 2016-11-17 11:45 | PCM.DIMED ---
Discharge Instructions Date of Service Nov 17, 2016 Dates of Hospitalization Nov 06, 2016 at 05:18 Discharge Diagnosis Discharge Diagnosis 1. ST elevation myocardial infarction 2. Cardiogenic shock 3. Acute on chronic hypoxic respiratory failure 4. Chronic Obstructive Pulmonary Disease with chronic respiratory failure 5. Acute on chronic Systolic Congestive Heart Failure secondary to ischemic cardiomyopathy 6. Chronic Diabetes Mellitus type 2 7. Paroxysmal atrial tachycardia/atrial fibrillation 8. Chronic Hypertension 9. Chronic hyperlipidemia 10. Chronic depression 11. Tobacco dependence 12. Chronic obesity 13. Chronic venous insufficiency Medication Instructions All patient home medications in hospital medications have been discontinued with the exception of medications used for comfort measures only. Diet No restrictions Activity No restrictions Patient Instructions You are being discharged to hospice care you will be able to live out the remainder of your days in comfort. All of the medications have been discontinued, with the exception of medications that are to be used for your comfort such as pain medications or oxygen. HARINDER PACKER DO Nov 17, 2016 11:45
[2016-11-17] MEDS ORDERED: LORA-303 PO (11:48)
[2016-11-17] MEDS ORDERED: MORP30TA PO (11:49)
[2016-11-17] MEDS ORDERED: OXYC-466 PO (11:52)
[2016-11-17] MEDS: Digoxin 0.25 mg/mL 2 mL Inj IV SCH (12:19)
--- NOTE | 2016-11-17 12:54 | NUR ---
Social Work Note: Readiness for Discharge Data& Assessment: Per MD pt has expressed wishes to pursue an end of life pathway and discontinue medical treatment and care. Referral has been sent to [facility] as pt is homeless and does not have the location, support, or funds to have hospice services in a home setting or at a [facility] private pay. SW met with pt at bedside to confirm this plan. Pt confirmed that he would like hospice services. Pt confirmed that he would like to discontinue treatment and pursue an end of life pathway. Pt was educated about [facility] further and clarified that it is not a [facility] (Pt has a hx of declining discharge to [facility] in the past). Pt agreeable to plan and denies any other needs. SW awaiting decision from [facility] regarding possible acceptance. SW to continue to follow if any needs arise with pt or pt sister who has flown into town. Plan: Pt would like to be on comfort care. Anticipated discharge to [facility] pending acceptance. Pt agreeable to plan and denies any other needs. SW awaiting decision from [facility] regarding possible acceptance. SW to continue to follow if any needs arise with pt or pt sister who has flown into town. SURESH Currie
--- NOTE | 2016-11-17 19:09 | PCM.PNMED ---
Subjective Date of Service Nov 17, 2016 Subjective Overnight: Patient refused vital signs though was agreeable to medication administration as well as nebulizer treatment. Patient repeatedly tried to exit his bed despite coaxing from nursing staff not to. Patient was unable to physically lift himself off of bed which upset him noticeably. Today Pt is awake and alert. Patient is agreeable to transfer to hospice care and signed post form saying that he wishes to be DNR/DNI. Patient wishes to be placed to comfort care measures which includes breathing treatments as well as pain medications. Patient was expected to be transferred to hospice care today , this would most likely occur tomorrow. Exam Vital Signs Vital Sign - Last Date Time Temp Pulse Resp B/P Pulse Ox O2 Delivery O2 Flow Rate FiO2 11/17/16 12:19 84 11/17/16 09:26 18 92 OxyMask 5.00 11/17/16 09:19 34.7 91/63 11/15/16 08:10 50 Intake and Output 11/16/16 11/16/16 11/17/16 Cumulative From/Thru 15:00 23:00 07:00 11/06/16 01:25 - 11/17/16 06:23 Intake Total 598 ml 0 ml 15102 ml Output Total 650 ml 1300 ml 04536 ml Balance -52 ml -1300 ml -8962 ml Intake Oral 250 ml 0 ml 550 ml IV Total 348 ml 03624 ml Tube Feeding 2333 ml Tube Irrigant 775 ml Output Urine Total 650 ml 1300 ml 94628 ml Gastric Drainage Total 1500 ml # Bowel Movements 2 0 2 Exam General: Pt laying in hospital bed and an oblong angle with legs draped over 1 railing and head resting against another. He is working hard to breath with oxymask in place. Awake and alert and able to answer questions appropriately HEENT: Normocephalic, atraumatic. Neck: No jugular venous distension. Cardiovascular: Regular rate and rhythm Pulmonary: Clear to auscultation bilaterally - PT again refused thorough physical exam Psychiatric: Normal mood and affect, per Pt's baseline Alert and oriented to person, place, and time. Lab and Diagnostics Result Diagram: 11/16/16 0600 11/16/16 0600 X-Rays, CTs and MRIs PROCEDURE: X-RAY CHEST ONE VIEW, PORTABLE IMPRESSION: Interval decreased bibasilar atelectasis. No acute cardiopulmonary disease. Dictated by: Mukesh Acevedo M.D. on 11/14/2016 at 6:49 Cardiac Echo Impressions Echocardiogram Report 11/06/2016 Interpretation Summary The left ventricle is borderline dilated. There is akinesis along the apical wall and severe hypokinesis along the anteroseptal wall. There is mild to moderate hypokinesis along the anterior wall. Left ventricular systolic function is moderate to severely reduced. The ejection fraction is estimated to be 35-40%. LVEF has decreased since prior study. Assessment of diastolic parameters indicates a relaxation abnormality of the left ventricle, consistent with normal filling pressures. The right ventricle is normal size. Right ventricular systolic function is mildly reduced. Both atria are mildly dilated. There is no significant valvular heart disease. The aortic root is mildly dilated. Reading Physician:PM Additional Diagnostics DIAGNOSTIC CARDIAC CATHETERIZATION FINDINGS: 1. LMCA: The left main coronary artery is intact. 2. LAD: The left anterior descending coronary artery is heavily calcified and initially occluded proximally at the small first septal. When opened, it is a medium-sized transapical vessel with severe diffuse disease in the proximal and mid portions. 3. LCX: The left circumflex coronary artery is a medium-sized vessel. The first OM is a medium-sized branching vessel with 80% lesions. The second OM is a medium-sized vessel with a 70% tubular proximal narrowing. Thereafter the mid LCX is a medium-sized vessel with a 70% proximal lesion. 4. RCA: Dominant. A 90% tubular proximal lesion. The right coronary artery is a large vessel with a large PDA and a large RPLB. 5. LHC: LVED of 20 mmHg; and no systolic gradient across the aortic valve on pullback. Systolic blood pressure 100. CONCLUSIONS: 1. PCI of proximal occluded LAD--Vision BMS--2.5 x 23 mm post dilated to 2.75 mm. 2. ACS--anterior RI with culprit occluded proximal LAD. 3. Coronary artery disease (CAD)--three-vessel disease including occluded proximal LAD; 80% OM 1, 70% mid LCX; and 90% proximal RCA. Kyler Marin MD 11/06/16 0857 INTERVENTIONAL CARDIAC CATHETERIZATION CONCLUSION: 1. Moderate pulmonary hypertension. 2. Cardiac index is 2.6 L/minute per m2. 3. Mean pulmonary capillary wedge pressure is 35 mmHg. 4. The left anterior descending artery has reoccluded in the proximal portion. 5. Severe 90% proximal right coronary artery stenosis. This was successfully treated with one occluding stent. 6. Severe 70% 1st obtuse marginal branch stenosis. This was successfully treated with one occluding stent. Sosa Mejia MD 11/10/16 7981 Assessment & Plan Patient is a 66 gentleman with past medical history significant for coronary artery disease, hypertension, congestive heart failure, dyslipidemia, and history of non compliance with multiple AGAINST MEDICAL ADVICE discharges admitted for STEMI with stent placement to left anterior descending coronary artery. Patient is unable to lay down at baseline secondary to his chronic lung disease and would only agree to catheterization if he was sedated. Patient intubated and sedated for cardiac catheterization technician and admitted to ICU for ventilation management. Hospital Day 11. Pt signed polst form confirming change of code status to DNR/DNI. Patient transitioned to comfort measures which include breathing treatments, supplemental oxygen as well as pain medication. We will maintain patient with comfort care measures until discharged tomorrow to hospice care. 1. ST elevation myocardial infarction, present on admission. - Patient initially stented on day of admission with bare metal stent to left anterior descending coronary artery. Patient taken back to cardiac cardiac catheterization technician showed occluded LAD stent with significant notable wall motion abnormality consistent with severe myocardial infarction at admission. Two drug -eluting stents placed in the proximal right coronary artery and left marginal obtuse. - PT has been non compliant with medications post extubation - Cardiology continues to follow the patient and we appreciate their recommendations. 2. Cardiogenic shock, not present on admission, improving. - Secondary to significant wall motion abnormality with worsening ejection fraction DOWN to 20% from 35%. - Patient was requiring vasopressor agents due to hypotension. Patient weaned from norepinephrine on 11/12/16. - Continue captopril 6.25 mg TID in an effort to reduce afterload. 3. Acute on chronic hypoxic respiratory failure, not present on admission, ongoing. - Patient uses 2-3 L supplemental O2 with significant orthopnea at baseline. - Patient required 3 days of mechanical ventilation after initial cardiac catheterization on November 06 before being extubated on 11/09/2016. Patient was taken back to cardiac cardiac catheterization technician 11/10/2016 and required a second intubation. - Successful extubation on 11/15/2016 - Based on chest x-ray from 11/13/16, concerns for development of new pneumonia contributing to increased O2 needs. Infectious disease consult did not believe this patient is acutely infectious at this time. Continue azithromycin as below in #4. - Pulmonology has been consulted and we appreciate her expertise. 4. Chronic Obstructive Pulmonary Disease with chronic respiratory failure, present on admission, ongoing. - Did not appear to be having exacerbation at time of admission. Patient uses 2 -3 L supplemental O2 in his car. - Continue levalbuterol neb q4 and ipratropium q4 scheduled. - Continue Solu-Medrol 40 mg IV q8. - Continue Azithromycin 500 daily. 5. Acute on chronic Systolic Congestive Heart Failure secondary to ischemic cardiomyopathy, present on admission. Ongoing - Patient did not appear to be decompensated at time of admission. Echo performed 11/06/16 showed EF 35-40% which is decreased from prior study. On evaluation during cardiac catheterization EF approximately 20-22% decreased from the initial EF at presentation during this hospitalization. - Lasix 40 mg as needed for diuresis. - Metoprolol 5 mg IV for sustained tachycardia greater than 120. - Captopril 6.25 mg TID as patient's blood pressure can tolerate. 6. Chronic Diabetes Mellitus type 2, present on admission, ongoing. - Hemoglobin A1C 10.3 this admission. - Patient currently receiving tube feeds. - Continue high dose correction scale of regular insulin. - Continue Lantus 20 units HS. Will continue to evaluate if this dose is appropriate and increase as needed for better management of blood glucose. 7. Paroxysmal atrial tachycardia/atrial fibrillation, chronic, not present on admission. - Continue digoxin 0.25 mg daily. - Continue baby aspirin daily. Since patient is known to be noncompliant with many recommended therapies, is likely a poor candidate for anticoagulation. - Continue telemetry. 8. Chronic Hypertension, present on admission, stable. - Patient has been hypotensive and low normotensive during admission. - Patient currently off pressor support. Continuing to monitor closely. - Continue captopril 3.125 mg TID as tolerated by patient per cardiology recommendations. 9. Chronic hyperlipidemia, present on admission, presumed stable - Continue atorvastatin 40 mg HS. 10. Chronic depression, present on admission, stable. - Continue sertraline 25 mg daily. 11. Tobacco dependence, chronic, present on admission - Nicotine patch available PRN. 12. Chronic obesity, present on admission, presumed stable. - Recommend weight loss with lifestyle changes. 13. Chronic venous insufficiency, present on admission, stable. - Monitor for signs of infection as the patient also has chronic cellulitis. - Antiemetics available PRN. - Bowel Regimen available PRN. - Nystatin powder available PRN. Disposition: Patient is likely to remain inpatient for a significantly extended period of time with significant morbidity and mortality associated to primary disease process. Pt will not be discharged to home, considering discharge to hospice care at this point. Pt changed code status to DNR/DNI today Pain Evaluation: Adequate Pain Control GI Prophylaxis: H2 gracie VTE Prophylaxis: Sub-Q Heparin (Unfractionated), SCDs VTE Mechanical Devices: Intermittant Pneumatic CD Resuscitation Status: CPR: Attempt Resuscitation Attending Statement The patient was seen and examined together with Dr. Wise on 11/17/2016 and I agree with the history, exam and plan as outlined in the note above. . HARINDER WISE DO Nov 17, 2016 19:09 Mariano Porter MD Nov 20, 2016 18:56
--- NOTE | 2016-11-17 19:24 | NUR ---
BP/Refusals Pt's BP 91/63 prior to am medications, MD made aware who instructed RN to hold am metoprolol and lasix doses and afternoon captopril dose. Pt refused VS for remainder of shift. Pt had no c/o dizziness. Pt compliant with most am medications, but refused large portions of assessment, nystatin powder, and insulin coverage.
[2016-11-17] MEDS: Insulin GLARgine 100 Unit/mL Syringe SUBQ SCH (21:00)
[2016-11-18] MEDS: Levalbuterol 1.25 mg/0.5mL Inhalation Solution NEB SCH ×4 (00:37→16:30)
[2016-11-18] MEDS: Ipratropium 0.02% 0.5 mg/2.5 mL Inhalation Solution NEB SCH ×4 (00:37→16:30)
[2016-11-18 00:40] VITALS: PULSE 70; RESP 26; O2SAT 92
[2016-11-18] MEDS: Insulin Human REGular 300 Unit/3 mL Inj SUBQ SCH ×3 (02:30→14:30)
[2016-11-18] MEDS: Chlorhexidine 0.12% 15 mL Oral Solution MT SCH ×6 (03:29→21:22)
--- NOTE | 2016-11-18 04:44 | NUR ---
Agitation Pt severely agitated at beginning of shift, refusing medications and interventions beyond vitals signs and brief assessment. Pt on 7L oxymask when compliant with keeping mask on; SpO2 85% on RA and approx. 98% on oxygen. Pt refused oxygen for first several hours of shift. Pt agreeable to midnight medications. Repeatedly demanding to get out of bed and "get out of here". Attempted to reorient pt to current physical capacity, but pt demonstrates lack of understanding. Pt able to rest for approx. 2hrs this shift; upon waking, pt calling out, yelling, and swearing, demanding to know where "Abdulkadir" is - unable to reorient to situation. Pt repeatedly attempting to get out of bed but unable to lift self to edge. VSS. No telemetry. Pt refused BG checks.
[2016-11-18] MEDS: Nystatin 100,000 Unit/Gm 15 Gm Powder TOPICAL SCH (07:33)
[2016-11-18 07:36] VITALS: BP 127/81; PULSE 112; RESP 28; O2SAT 88
[2016-11-18] MEDS: Heparin 5,000 Unit/mL Inj SUBQ SCH ×2 (08:30→16:30)
[2016-11-18] MEDS: Furosemide 10 mg/mL 4 mL Inj IVPUSH SCH (08:30)
[2016-11-18] MEDS: Azithromycin Inj 500 MG in Dextrose 5% w/Vial Mate 250 ML IV SCH (08:30)
[2016-11-18] MEDS: Sodium Chloride LOK Flush 10 mL Syringe IVFLUSH SCH ×3 (08:30→21:22)
[2016-11-18] MEDS: MethylprednisoLONE Sodium Succinate 40 mg/mL Inj IVPUSH SCH ×2 (08:30→16:30)
[2016-11-18] MEDS ORDERED: fentaNYL 2,500 mCg/250 mL 2,500 MCG in IV Premix 1 EACH IV SCH (10:09)
[2016-11-18] MEDS ORDERED: fentaNYL-PF 50 mCg/mL 2 mL Inj IVPUSH PRN (10:10)
[2016-11-18] MEDS ORDERED: LORazepam 100 mg/100 mL NS 100 MG in IV Premix 1 EACH IV SCH (10:10)
--- NOTE | 2016-11-18 11:10 | NUR ---
Social Work note - Support CERTIFIED NURSES AIDE met with pt - known from previous admissions. Pt is awake, alert, talkative and identifying that he has had a "rough week". Pt identified that he is dying - He states that he has been trying to but "these Doctors won't let me". He heard from medical staff that there is no further treatment and he states that he is scared. He admits that he "Did this to myself". He said his biggest worry is "How long will this take - what will dying be like?" He asked CERTIFIED NURSES AIDE to call his brother Rambo. He does not have contact information for his brother. He gave CERTIFIED NURSES AIDE permission to call his sister. Radha states that she has not talked with Rambo but was able to find his number [phone]. CERTIFIED NURSES AIDE called Rambo and left a message. CERTIFIED NURSES AIDE also updated Brianne at [facility] per Pt's request. She will come up to visit later today. CERTIFIED NURSES AIDE discussed with Christiana PRINCE and VALENTIN Song - Will continue to pursue [facility]. YOLANDA Acosta
[2016-11-18] MEDS: Digoxin 0.25 mg/mL 2 mL Inj IV SCH (12:00)
[2016-11-18 12:25] VITALS: PULSE 98; RESP 20; O2SAT 85
--- NOTE | 2016-11-18 14:41 | NUR ---
Yin from [facility] called and they are unable to accept patient. Updated [employer]
--- NOTE | 2016-11-18 16:33 | NUR ---
Noncompliance/Comfort care/Transfer Pt refusing all medications this am. Pt also refusing blood sugar check and O2. Spoke with MD and official comfort care orders placed. Pt offered pain/anti-anxiety medications which Pt was willing to receive only limited amounts of IV morphine which appeared to help with restlessness. Pt just transferred from [facility] room 2008 to [facility], report done with Shukri Zarco. All medications and belongings accompanied Pt at time of transfer.
--- NOTE | 2016-11-18 16:38 | NUR ---
Transfer from [facility] Pt transferred from 2nd floor arrived at 1722, on RA, SL (PICC line), no tele, barrett draining to gravity, A&O but sleepy/delayed. All belongings and meds from drawer arrived with him. Pt in bed, alarm on. Care continues.
[2016-11-18] MEDS: 0.9% Sodium Chloride 250 ML BOLUS IV PRN (16:51)
[2016-11-18] MEDS: Morphine 100 mg/100 mL NS 100 MG in IV Premix 1 EACH IV SCH (16:59)
--- NOTE | 2016-11-18 17:22 | PCM.PNMED ---
Subjective Date of Service Nov 18, 2016 Subjective Overnight: Patient once again noncompliant with medications. Transition to comfort care measures only. Today: Patient awake and alert sitting in bed somewhat appropriate though confused as to the situation. Still seems to be under the impression that he will be able to go back to his car after discharge. When reminded that this was not a possibility he did seem accepting. He reports no specific complaints. Exam Vital Signs Vital Sign - Last Date Time Temp Pulse Resp B/P Pulse Ox O2 Delivery O2 Flow Rate FiO2 11/18/16 12:25 98 20 85 Room Air 11/18/16 07:36 127/81 11/18/16 00:40 7.00 11/17/16 09:19 34.7 11/15/16 08:10 50 Intake and Output 11/17/16 11/17/16 11/18/16 Cumulative From/Thru 15:00 23:00 07:00 11/06/16 01:25 - 11/18/16 05:08 Intake Total 0 ml 0 ml 68690 ml Output Total 400 ml 400 ml 64590 ml Balance -400 ml -400 ml -9762 ml Intake Oral 0 ml 0 ml 550 ml IV Total 45154 ml Tube Feeding 2333 ml Tube Irrigant 775 ml Output Urine Total 400 ml 400 ml 84767 ml Gastric Drainage Total 1500 ml # Bowel Movements 2 2 6 Exam General: Pt laying in hospital bed in no apparent distress with no supplemental oxygen in place. HEENT: Normocephalic, atraumatic. Neck: No jugular venous distension. Cardiovascular: Regular rate and rhythm Pulmonary: Clear to auscultation bilaterally Psychiatric: Patient somewhat confused though able to converse appropriately. IVs and Medications Medications Reviewed: Medications were reviewed in detail Lab and Diagnostics Result Diagram: 11/16/16 0600 11/16/16 06 X-Rays, CTs and MRIs PROCEDURE: X-RAY CHEST ONE VIEW, PORTABLE IMPRESSION: Interval decreased bibasilar atelectasis. No acute cardiopulmonary disease. Dictated by: Mukesh Acevedo M.D. on 11/14/2016 at 6:49 Cardiac Echo Impressions Echocardiogram Report 11/06/2016 Interpretation Summary The left ventricle is borderline dilated. There is akinesis along the apical wall and severe hypokinesis along the anteroseptal wall. There is mild to moderate hypokinesis along the anterior wall. Left ventricular systolic function is moderate to severely reduced. The ejection fraction is estimated to be 35-40%. LVEF has decreased since prior study. Assessment of diastolic parameters indicates a relaxation abnormality of the left ventricle, consistent with normal filling pressures. The right ventricle is normal size. Right ventricular systolic function is mildly reduced. Both atria are mildly dilated. There is no significant valvular heart disease. The aortic root is mildly dilated. Reading Physician:PM Additional Diagnostics DIAGNOSTIC CARDIAC CATHETERIZATION FINDINGS: 1. LMCA: The left main coronary artery is intact. 2. LAD: The left anterior descending coronary artery is heavily calcified and initially occluded proximally at the small first septal. When opened, it is a medium-sized transapical vessel with severe diffuse disease in the proximal and mid portions. 3. LCX: The left circumflex coronary artery is a medium-sized vessel. The first OM is a medium-sized branching vessel with 80% lesions. The second OM is a medium-sized vessel with a 70% tubular proximal narrowing. Thereafter the mid LCX is a medium-sized vessel with a 70% proximal lesion. 4. RCA: Dominant. A 90% tubular proximal lesion. The right coronary artery is a large vessel with a large PDA and a large RPLB. 5. LHC: LVED of 20 mmHg; and no systolic gradient across the aortic valve on pullback. Systolic blood pressure 100. CONCLUSIONS: 1. PCI of proximal occluded LAD--Vision BMS--2.5 x 23 mm post dilated to 2.75 mm. 2. ACS--anterior SD with culprit occluded proximal LAD. 3. Coronary artery disease (CAD)--three-vessel disease including occluded proximal LAD; 80% OM 1, 70% mid LCX; and 90% proximal RCA. Kyler Marin MD 11/06/16 0857 INTERVENTIONAL CARDIAC CATHETERIZATION CONCLUSION: 1. Moderate pulmonary hypertension. 2. Cardiac index is 2.6 L/minute per m2. 3. Mean pulmonary capillary wedge pressure is 35 mmHg. 4. The left anterior descending artery has reoccluded in the proximal portion. 5. Severe 90% proximal right coronary artery stenosis. This was successfully treated with one occluding stent. 6. Severe 70% 1st obtuse marginal branch stenosis. This was successfully treated with one occluding stent. Sosa Mejia MD 11/10/16 2498 Assessment & Plan Patient is a 66 gentleman with past medical history significant for coronary artery disease, hypertension, congestive heart failure, dyslipidemia, and history of non compliance with multiple AGAINST MEDICAL ADVICE discharges admitted for STEMI with stent placement to left anterior descending coronary artery. Patient is unable to lay down at baseline secondary to his chronic lung disease and would only agree to catheterization if he was sedated. Patient intubated and sedated for casting house laborer and admitted to ICU for ventilation management. Hospital Day 12. Pt signed polst form confirming change of code status to DNR/DNI. Patient transitioned to comfort measures. We will maintain patient with comfort care measures. Patient scheduled for discharge to hospice care today though hospice no longer accepting the patient. 1. ST elevation myocardial infarction, present on admission. - Patient initially stented on day of admission with bare metal stent to left anterior descending coronary artery. Patient taken back to cardiac casting house laborer showed occluded LAD stent with significant notable wall motion abnormality consistent with severe myocardial infarction at admission. Two drug -eluting stents placed in the proximal right coronary artery and left marginal obtuse. - PT has been non compliant with medications post extubation - Cardiology continues to follow the patient and we appreciate their recommendations. 2. Cardiogenic shock, not present on admission, improving. - Secondary to significant wall motion abnormality with worsening ejection fraction DOWN to 20% from 35%. - Patient was requiring vasopressor agents due to hypotension. Patient weaned from norepinephrine on 11/12/16. - Continue captopril 6.25 mg TID in an effort to reduce afterload. 3. Acute on chronic hypoxic respiratory failure, not present on admission, ongoing. - Patient uses 2-3 L supplemental O2 with significant orthopnea at baseline. - Patient required 3 days of mechanical ventilation after initial cardiac catheterization on November 06 before being extubated on 11/09/2016. Patient was taken back to cardiac casting house laborer 11/10/2016 and required a second intubation. - Successful extubation on 11/15/2016 - Based on chest x-ray from 11/13/16, concerns for development of new pneumonia contributing to increased O2 needs. Infectious disease consult did not believe this patient is acutely infectious at this time. Continue azithromycin as below in #4. - Pulmonology has been consulted and we appreciate her expertise. 4. Chronic Obstructive Pulmonary Disease with chronic respiratory failure, present on admission, ongoing. - Did not appear to be having exacerbation at time of admission. Patient uses 2 -3 L supplemental O2 in his car. - Continue levalbuterol neb q4 and ipratropium q4 scheduled. - Continue Solu-Medrol 40 mg IV q8. - Continue Azithromycin 500 daily. 5. Acute on chronic Systolic Congestive Heart Failure secondary to ischemic cardiomyopathy, present on admission. Ongoing - Patient did not appear to be decompensated at time of admission. Echo performed 11/06/16 showed EF 35-40% which is decreased from prior study. On evaluation during cardiac catheterization EF approximately 20-22% decreased from the initial EF at presentation during this hospitalization. - Lasix 40 mg as needed for diuresis. - Metoprolol 5 mg IV for sustained tachycardia greater than 120. - Captopril 6.25 mg TID as patient's blood pressure can tolerate. 6. Chronic Diabetes Mellitus type 2, present on admission, ongoing. - Hemoglobin A1C 10.3 this admission. - Patient currently receiving tube feeds. - Continue high dose correction scale of regular insulin. - Continue Lantus 20 units HS. Will continue to evaluate if this dose is appropriate and increase as needed for better management of blood glucose. 7. Paroxysmal atrial tachycardia/atrial fibrillation, chronic, not present on admission. - Continue digoxin 0.25 mg daily. - Continue baby aspirin daily. Since patient is known to be noncompliant with many recommended therapies, is likely a poor candidate for anticoagulation. - Continue telemetry. 8. Chronic Hypertension, present on admission, stable. - Patient has been hypotensive and low normotensive during admission. - Patient currently off pressor support. Continuing to monitor closely. - Continue captopril 3.125 mg TID as tolerated by patient per cardiology recommendations. 9. Chronic hyperlipidemia, present on admission, presumed stable - Continue atorvastatin 40 mg HS. 10. Chronic depression, present on admission, stable. - Continue sertraline 25 mg daily. 11. Tobacco dependence, chronic, present on admission - Nicotine patch available PRN. 12. Chronic obesity, present on admission, presumed stable. - Recommend weight loss with lifestyle changes. 13. Chronic venous insufficiency, present on admission, stable. - Monitor for signs of infection as the patient also has chronic cellulitis. - Antiemetics available PRN. - Bowel Regimen available PRN. - Nystatin powder available PRN. Disposition: Patient is likely to remain inpatient for a significantly extended period of time with significant morbidity and mortality associated to primary disease process. Pt will not be discharged to home, considering discharge to hospice care at this point. Pt changed code status to DNR/DNI comfort care measures Pain Evaluation: Adequate Pain Control GI Prophylaxis: H2 gracie VTE Prophylaxis: Sub-Q Heparin (Unfractionated), SCDs VTE Mechanical Devices: Intermittant Pneumatic CD Resuscitation Status: CPR: Attempt Resuscitation Attending Statement The patient was seen and examined together with Dr. Wise on 11/18/2016 and I agree with the history, exam and plan as outlined in the note above. . HARINDER WISE DO Nov 18, 2016 17:22 Mariano Porter MD Nov 20, 2016 18:57
[2016-11-19] MEDS: Chlorhexidine 0.12% 15 mL Oral Solution MT SCH ×5 (01:28→20:30)
[2016-11-19 02:31] VITALS: PULSE 80; RESP 16
--- NOTE | 2016-11-19 06:39 | NUR ---
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 Later in the night pt RR increased and becoming more vocal, given breakthrough of morphine which kept him comfortable until about 0545. Pt swinging his legs over side of bed and took 3 people to get him back into bed and situated, very agitated and aggressive, yelling " let me leave" "I want the pension fund manager" " i am leaving this place". Given ativan and morphine at 0600 and currently asleep. RR 14
[2016-11-19] MEDS: Sodium Chloride LOK Flush 10 mL Syringe IVFLUSH SCH ×2 (07:50→16:30)
[2016-11-19 09:02] VITALS: BP 120/80; PULSE 83; RESP 24; O2SAT 90
--- NOTE | 2016-11-19 13:44 | NUR ---
Social Work Note ENERGY DIRECTOR met with Pt - Pt's brother Rambo also in the room. Pt recognized ENERGY DIRECTOR, SOB, talking made him cough. Pt becoming sleepy - unable to carry on long conversation. Pt denies any needs, ENERGY DIRECTOR will follow. DULCE MARIA Acosta
[2016-11-19 15:16] VITALS: BP 198/63
--- NOTE | 2016-11-19 17:23 | NUR ---
Morphine drip rate Due to pt visibly looking uncomfortable, Dr Flood ordered change to continuos infusion rate to be increased to 2 ml (1mg/ml)/hr. Continuing to monitor.
--- NOTE | 2016-11-19 17:32 | PCM.PNMED ---
Subjective Date of Service Nov 19, 2016 Subjective Patient transferred to 3rd floor as now on comfort care on an ativan and morphine drip. For most part patient has been relatively comfortable today, we did need to increase the MS drip at one point. Exam Vital Signs Vital Sign - Last Date Time Temp Pulse Resp B/P Pulse Ox O2 Delivery O2 Flow Rate FiO2 11/19/16 15:16 11/19/16 09:02 37.0 83 24 90 Nasal Cannula 1.50 11/15/16 08:10 50 Intake and Output 11/18/16 11/18/16 11/19/16 Cumulative From/Thru 15:00 23:00 07:00 11/06/16 01:25 - 11/18/16 19:16 Intake Total 236 ml 38536 ml Output Total 1000 ml 52616 ml Balance -764 ml -09589 ml Intake Oral 236 ml 786 ml IV Total 57464 ml Tube Feeding 2333 ml Tube Irrigant 775 ml Output Urine Total 1000 ml 41779 ml Gastric Drainage Total 1500 ml # Bowel Movements 6 Exam EYES; nicolás, eom intact ENMT: mucus membranes dry, no lesions CV; regular Resp; coarse GI; non acute, non tender Skin; multiple bruise, no rash, dry Neuro; obtruded and sedated gen; for most part pain under control for patient Lab and Diagnostics Result Diagram: 11/16/16 0600 11/16/16 0600 X-Rays, CTs and MRIs PROCEDURE: X-RAY CHEST ONE VIEW, PORTABLE IMPRESSION: Interval decreased bibasilar atelectasis. No acute cardiopulmonary disease. Dictated by: Mukesh Acevedo M.D. on 11/14/2016 at 6:49 Cardiac Echo Impressions Echocardiogram Report 11/06/2016 Interpretation Summary The left ventricle is borderline dilated. There is akinesis along the apical wall and severe hypokinesis along the anteroseptal wall. There is mild to moderate hypokinesis along the anterior wall. Left ventricular systolic function is moderate to severely reduced. The ejection fraction is estimated to be 35-40%. LVEF has decreased since prior study. Assessment of diastolic parameters indicates a relaxation abnormality of the left ventricle, consistent with normal filling pressures. The right ventricle is normal size. Right ventricular systolic function is mildly reduced. Both atria are mildly dilated. There is no significant valvular heart disease. The aortic root is mildly dilated. Reading Physician:PM Additional Diagnostics DIAGNOSTIC CARDIAC CATHETERIZATION FINDINGS: 1. LMCA: The left main coronary artery is intact. 2. LAD: The left anterior descending coronary artery is heavily calcified and initially occluded proximally at the small first septal. When opened, it is a medium-sized transapical vessel with severe diffuse disease in the proximal and mid portions. 3. LCX: The left circumflex coronary artery is a medium-sized vessel. The first OM is a medium-sized branching vessel with 80% lesions. The second OM is a medium-sized vessel with a 70% tubular proximal narrowing. Thereafter the mid LCX is a medium-sized vessel with a 70% proximal lesion. 4. RCA: Dominant. A 90% tubular proximal lesion. The right coronary artery is a large vessel with a large PDA and a large RPLB. 5. LHC: LVED of 20 mmHg; and no systolic gradient across the aortic valve on pullback. Systolic blood pressure 100. CONCLUSIONS: 1. PCI of proximal occluded LAD--Vision BMS--2.5 x 23 mm post dilated to 2.75 mm. 2. ACS--anterior [place] with culprit occluded proximal LAD. 3. Coronary artery disease (CAD)--three-vessel disease including occluded proximal LAD; 80% OM 1, 70% mid LCX; and 90% proximal RCA. Kyler Marin MD 11/06/16 0857 INTERVENTIONAL CARDIAC CATHETERIZATION CONCLUSION: 1. Moderate pulmonary hypertension. 2. Cardiac index is 2.6 L/minute per m2. 3. Mean pulmonary capillary wedge pressure is 35 mmHg. 4. The left anterior descending artery has reoccluded in the proximal portion. 5. Severe 90% proximal right coronary artery stenosis. This was successfully treated with one occluding stent. 6. Severe 70% 1st obtuse marginal branch stenosis. This was successfully treated with one occluding stent. Sosa Mejia MD 11/10/16 8034 Assessment & Plan Patient is a 66 gentleman with past medical history significant for coronary artery disease, hypertension, congestive heart failure, dyslipidemia, and history of non compliance with multiple AGAINST MEDICAL ADVICE discharges admitted for STEMI with stent placement to left anterior descending coronary artery. Patient is unable to lay down at baseline secondary to his chronic lung disease and would only agree to catheterization if he was sedated. Patient intubated and sedated for laborer shaft sinking and admitted to ICU for ventilation management. Hospital Day 12. Pt signed polst form confirming change of code status to DNR/DNI. Patient transitioned to comfort measures. We will maintain patient with comfort care measures. Patient scheduled for discharge to hospice care today though hospice no longer accepting the patient. 1-Comfort Care Status -Morphine drip and Ativan drip for anxiety and pain -please see extensive documentation in chart for this status 2. ST elevation myocardial infarction, present on admission. - Patient initially stented on day of admission with bare metal stent to left anterior descending coronary artery. Patient taken back to cardiac laborer shaft sinking showed occluded LAD stent with significant notable wall motion abnormality consistent with severe myocardial infarction at admission. Two drug -eluting stents placed in the proximal right coronary artery and left marginal obtuse. - PT has been non compliant with medications post extubation - Cardiology continues to follow the patient and we appreciate their recommendations. 3. Cardiogenic shock, not present on admission, improving. - Secondary to significant wall motion abnormality with worsening ejection fraction DOWN to 20% from 35%. - Patient was requiring vasopressor agents due to hypotension. Patient weaned from norepinephrine on 11/12/16. - Continue captopril 6.25 mg TID in an effort to reduce afterload. 4. Acute on chronic hypoxic respiratory failure, not present on admission, ongoing. - Patient uses 2-3 L supplemental O2 with significant orthopnea at baseline. - Patient required 3 days of mechanical ventilation after initial cardiac catheterization on November 06 before being extubated on 11/09/2016. Patient was taken back to cardiac laborer shaft sinking 11/10/2016 and required a second intubation. - Successful extubation on 11/15/2016 - Based on chest x-ray from 11/13/16, concerns for development of new pneumonia contributing to increased O2 needs. Infectious disease consult did not believe this patient is acutely infectious at this time. Continue azithromycin as below in #4. - Pulmonology has been consulted and we appreciate her expertise. 5. Chronic Obstructive Pulmonary Disease with chronic respiratory failure, present on admission, ongoing. - Did not appear to be having exacerbation at time of admission. Patient uses 2 -3 L supplemental O2 in his car. - Continue levalbuterol neb q4 and ipratropium q4 scheduled. - Continue Solu-Medrol 40 mg IV q8. - Continue Azithromycin 500 daily. 6. Acute on chronic Systolic Congestive Heart Failure secondary to ischemic cardiomyopathy, present on admission. Ongoing - Patient did not appear to be decompensated at time of admission. Echo performed 11/06/16 showed EF 35-40% which is decreased from prior study. On evaluation during cardiac catheterization EF approximately 20-22% decreased from the initial EF at presentation during this hospitalization. - Lasix 40 mg as needed for diuresis. - Metoprolol 5 mg IV for sustained tachycardia greater than 120. - Captopril 6.25 mg TID as patient's blood pressure can tolerate. 7. Chronic Diabetes Mellitus type 2, present on admission, ongoing. - Hemoglobin A1C 10.3 this admission. - Patient currently receiving tube feeds. - Continue high dose correction scale of regular insulin. - Continue Lantus 20 units HS. Will continue to evaluate if this dose is appropriate and increase as needed for better management of blood glucose. 8. Paroxysmal atrial tachycardia/atrial fibrillation, chronic, not present on admission. - Continue digoxin 0.25 mg daily. - Continue baby aspirin daily. Since patient is known to be noncompliant with many recommended therapies, is likely a poor candidate for anticoagulation. - Continue telemetry. 9. Chronic Hypertension, present on admission, stable. - Patient has been hypotensive and low normotensive during admission. - Patient currently off pressor support. Continuing to monitor closely. - Continue captopril 3.125 mg TID as tolerated by patient per cardiology recommendations. 10. Chronic hyperlipidemia, present on admission, presumed stable - Continue atorvastatin 40 mg HS. 11. Chronic depression, present on admission, stable. - Continue sertraline 25 mg daily. 12. Tobacco dependence, chronic, present on admission - Nicotine patch available PRN. 13. Chronic obesity, present on admission, presumed stable. - Recommend weight loss with lifestyle changes. 14. Chronic venous insufficiency, present on admission, stable. - Monitor for signs of infection as the patient also has chronic cellulitis. - Antiemetics available PRN. - Bowel Regimen available PRN. - Nystatin powder available PRN. Disposition: Patient is likely to remain inpatient for a significantly extended period of time with significant morbidity and mortality associated to primary disease process. Pt will not be discharged to home, considering discharge to hospice care at this point. Pt changed code status to DNR/DNI comfort care measures GI Prophylaxis: H2 gracie VTE Prophylaxis: Sub-Q Heparin (Unfractionated), SCDs VTE Mechanical Devices: Intermittant Pneumatic CD Resuscitation Status: CPR: Attempt Resuscitation Richy Flood MD Nov 19, 2016 17:32
--- NOTE | 2016-11-19 21:53 | NUR ---
restless: pt with legs over side of bed, asking to get OOB. pt repositioned. pt given prn morphine, pt indicates he is in pain, pt appears to be in some respiratory distress, resp rate 26. Son (Zack) called hospital wanting an update, pt indicated it was ok for RN to speak with son, he would like to be notified about pt's status, his phone is on white board. Son spoke to pt on phone, while RN held phone for pt. several family and friends here to visit. will continue to monitor.
[2016-11-20] MEDS: Chlorhexidine 0.12% 15 mL Oral Solution MT SCH ×6 (00:30→20:30)
[2016-11-20] MEDS: Sodium Chloride LOK Flush 10 mL Syringe IVFLUSH SCH ×3 (00:30→16:30)
--- NOTE | 2016-11-20 01:02 | NUR ---
comfort: pt resting comfortably, with eyes closed. Resp rate 14, pt with apnic breathing at times. pt has not opened eyes for the past two hours. No attempts to throw legs over the side of the bed. will continue to monitor pt.
--- NOTE | 2016-11-20 05:09 | NUR ---
awake: pt awake, answering yes or now questions. indicates he is not in pain, and indicates he does not feel anxious. Resp rate 20, weak ineffective cough, moist/wet. order for scopolamine patch obtained and administered. will continue to monitor pt. Addendum: 11/20/16 at 0636 by AMELIA BHANDARI RN pt appears to be in mild resp distress, unable to clear secretion, resp rate 24. pt is awake and seems to answer questions appropriately. offered pt IV morphine, to help with resp symptoms pt refused "stated I don't want it", expalined to pt how morphine can help with his breathing pt still refused. will continue to monitor.
[2016-11-20 07:15] VITALS: RESP 29
--- NOTE | 2016-11-20 14:04 | PCM.PNMED ---
Subjective Date of Service Nov 20, 2016 Subjective At times patient has become restless but overall I think we are keeping him over all comfortable. Patient is on an Ativan drip at 1 mg/hour, and 2.5mg/hr of morphine drip. Additional blouses are also available. Exam Vital Signs Vital Sign - Last Date Time Temp Pulse Resp B/P Pulse Ox O2 Delivery O2 Flow Rate FiO2 11/20/16 07:15 Supplement Oxygen 11/20/16 07:15 29 11/19/16 15:16 11/19/16 09:02 37.0 83 90 1.50 11/15/16 08:10 50 Intake and Output 11/19/16 11/19/16 11/20/16 Cumulative From/Thru 15:00 23:00 07:00 11/06/16 01:25 - 11/19/16 18:00 Intake Total 0 ml 152 ml 36884 ml Output Total 400 ml 400 ml 78007 ml Balance -400 ml -248 ml -43797 ml Intake Oral 0 ml 0 ml 786 ml IV Total 152 ml 72441 ml Tube Feeding 2333 ml Tube Irrigant 775 ml Output Urine Total 400 ml 400 ml 17185 ml Gastric Drainage Total 1500 ml # Bowel Movements 6 Exam repiratory rate about 10/min not labored. Lungs congested and roncherous regular heart rate abdo soft and no tenderness noted generalized edema Lab and Diagnostics Result Diagram: 11/16/16 0600 11/16/16 0600 X-Rays, CTs and MRIs PROCEDURE: X-RAY CHEST ONE VIEW, PORTABLE IMPRESSION: Interval decreased bibasilar atelectasis. No acute cardiopulmonary disease. Dictated by: Mukesh Acevedo M.D. on 11/14/2016 at 6:49 Cardiac Echo Impressions Echocardiogram Report 11/06/2016 Interpretation Summary The left ventricle is borderline dilated. There is akinesis along the apical wall and severe hypokinesis along the anteroseptal wall. There is mild to moderate hypokinesis along the anterior wall. Left ventricular systolic function is moderate to severely reduced. The ejection fraction is estimated to be 35-40%. LVEF has decreased since prior study. Assessment of diastolic parameters indicates a relaxation abnormality of the left ventricle, consistent with normal filling pressures. The right ventricle is normal size. Right ventricular systolic function is mildly reduced. Both atria are mildly dilated. There is no significant valvular heart disease. The aortic root is mildly dilated. Reading Physician:PM Additional Diagnostics DIAGNOSTIC CARDIAC CATHETERIZATION FINDINGS: 1. LMCA: The left main coronary artery is intact. 2. LAD: The left anterior descending coronary artery is heavily calcified and initially occluded proximally at the small first septal. When opened, it is a medium-sized transapical vessel with severe diffuse disease in the proximal and mid portions. 3. LCX: The left circumflex coronary artery is a medium-sized vessel. The first OM is a medium-sized branching vessel with 80% lesions. The second OM is a medium-sized vessel with a 70% tubular proximal narrowing. Thereafter the mid LCX is a medium-sized vessel with a 70% proximal lesion. 4. RCA: Dominant. A 90% tubular proximal lesion. The right coronary artery is a large vessel with a large PDA and a large RPLB. 5. LHC: LVED of 20 mmHg; and no systolic gradient across the aortic valve on pullback. Systolic blood pressure 100. CONCLUSIONS: 1. PCI of proximal occluded LAD--Vision BMS--2.5 x 23 mm post dilated to 2.75 mm. 2. ACS--anterior AL with culprit occluded proximal LAD. 3. Coronary artery disease (CAD)--three-vessel disease including occluded proximal LAD; 80% OM 1, 70% mid LCX; and 90% proximal RCA. Kyler Marin MD 11/06/16 0857 INTERVENTIONAL CARDIAC CATHETERIZATION CONCLUSION: 1. Moderate pulmonary hypertension. 2. Cardiac index is 2.6 L/minute per m2. 3. Mean pulmonary capillary wedge pressure is 35 mmHg. 4. The left anterior descending artery has reoccluded in the proximal portion. 5. Severe 90% proximal right coronary artery stenosis. This was successfully treated with one occluding stent. 6. Severe 70% 1st obtuse marginal branch stenosis. This was successfully treated with one occluding stent. Sosa Mejia MD 11/10/16 6019 Assessment & Plan Patient is a 66 gentleman with past medical history significant for coronary artery disease, hypertension, congestive heart failure, dyslipidemia, and history of non compliance with multiple AGAINST MEDICAL ADVICE discharges admitted for STEMI with stent placement to left anterior descending coronary artery. Patient is unable to lay down at baseline secondary to his chronic lung disease and would only agree to catheterization if he was sedated. Patient intubated and sedated for bolt labeler and admitted to ICU for ventilation management. Hospital Day 12. Pt signed polst form confirming change of code status to DNR/DNI. Patient transitioned to comfort measures. 1-Comfort Care Status/Plan -Morphine drip at 2.5 mg/hr -ativan drip at 1 mg/hr -ativan and morphine boluses available as needed -please see extensive documentation in chart for this status 2. ST elevation myocardial infarction, present on admission, ongoing - Patient initially stented on day of admission with bare metal stent to left anterior descending coronary artery. Patient taken back to cardiac bolt labeler showed occluded LAD stent with significant notable wall motion abnormality consistent with severe myocardial infarction at admission. Two drug -eluting stents placed in the proximal right coronary artery and left marginal obtuse. - PT has been non compliant with medications post extubation - Cardiology continues to follow the patient and we appreciate their recommendations. 3. Cardiogenic shock, not present on admission, ongoing - Secondary to significant wall motion abnormality with worsening ejection fraction DOWN to 20% from 35%. - Patient was requiring vasopressor agents due to hypotension. Patient weaned from norepinephrine on 11/12/16. - Continue captopril 6.25 mg TID in an effort to reduce afterload. 4. Acute on chronic hypoxic respiratory failure, not present on admission, ongoing. - Patient uses 2-3 L supplemental O2 with significant orthopnea at baseline. - Patient required 3 days of mechanical ventilation after initial cardiac catheterization on November 06 before being extubated on 11/09/2016. Patient was taken back to cardiac bolt labeler 11/10/2016 and required a second intubation. - Successful extubation on 11/15/2016 - Based on chest x-ray from 11/13/16, concerns for development of new pneumonia contributing to increased O2 needs. Infectious disease consult did not believe this patient is acutely infectious at this time. Continue azithromycin as below in #4. - Pulmonology has been consulted and we appreciate her expertise. 5. Chronic Obstructive Pulmonary Disease with chronic respiratory failure, present on admission, ongoing. - Did not appear to be having exacerbation at time of admission. Patient uses 2 -3 L supplemental O2 in his car. - Continue levalbuterol neb q4 and ipratropium q4 scheduled. - Continue Solu-Medrol 40 mg IV q8. - Continue Azithromycin 500 daily. 6. Acute on chronic Systolic Congestive Heart Failure secondary to ischemic cardiomyopathy, present on admission. Ongoing - Patient did not appear to be decompensated at time of admission. Echo performed 11/06/16 showed EF 35-40% which is decreased from prior study. On evaluation during cardiac catheterization EF approximately 20-22% decreased from the initial EF at presentation during this hospitalization. - Lasix 40 mg as needed for diuresis. - Metoprolol 5 mg IV for sustained tachycardia greater than 120. - Captopril 6.25 mg TID as patient's blood pressure can tolerate. 7. Chronic Diabetes Mellitus type 2, present on admission, ongoing. - Hemoglobin A1C 10.3 this admission. - Patient currently receiving tube feeds. - Continue high dose correction scale of regular insulin. - Continue Lantus 20 units HS. Will continue to evaluate if this dose is appropriate and increase as needed for better management of blood glucose. 8. Paroxysmal atrial tachycardia/atrial fibrillation, chronic, not present on admission. - Continue digoxin 0.25 mg daily. - Continue baby aspirin daily. Since patient is known to be noncompliant with many recommended therapies, is likely a poor candidate for anticoagulation. - Continue telemetry. 9. Chronic Hypertension, present on admission, stable. - Patient has been hypotensive and low normotensive during admission. - Patient currently off pressor support. Continuing to monitor closely. - Continue captopril 3.125 mg TID as tolerated by patient per cardiology recommendations. 10. Chronic hyperlipidemia, present on admission, presumed stable - Continue atorvastatin 40 mg HS. 11. Chronic depression, present on admission, stable. - Continue sertraline 25 mg daily. 12. Tobacco dependence, chronic, present on admission - Nicotine patch available PRN. 13. Chronic obesity, present on admission, presumed stable. - Recommend weight loss with lifestyle changes. 14. Chronic venous insufficiency, present on admission, stable. - Monitor for signs of infection as the patient also has chronic cellulitis. - Antiemetics available PRN. - Bowel Regimen available PRN. - Nystatin powder available PRN. Disposition: Patient is likely to remain inpatient for a significantly extended period of time with significant morbidity and mortality associated to primary disease process. Pt will not be discharged to home, considering discharge to hospice care at this point. Pt changed code status to DNR/DNI comfort care measures GI Prophylaxis: H2 gracie VTE Prophylaxis: Sub-Q Heparin (Unfractionated), SCDs VTE Mechanical Devices: Intermittant Pneumatic CD Resuscitation Status: CPR: Attempt Resuscitation Richy Flood MD Nov 20, 2016 14:04
--- NOTE | 2016-11-20 21:56 | NUR ---
Comfort: at start of shift pt resting, eyes closed. Start of shift at 1915: Morphine gtt noted to be infusing at 3ml/hr, and Ativan noted to be infusing at 1ml/hr. pt appears comfortable and is non verbal, non responsive at this time. will continue to monitor. Addendum: 11/21/16 at 0552 by AMELIA BHANDARI RN pt with agonal breathing, apnea, resp rate 12. no urine OP this shift. pt is non responsive. pt appears to be comfortable morphine and Ativan drip continue at previous rate.
[2016-11-21] MEDS: Sodium Chloride LOK Flush 10 mL Syringe IVFLUSH SCH (00:30)
[2016-11-21] MEDS: Chlorhexidine 0.12% 15 mL Oral Solution MT SCH (00:30)
[2016-11-21] MEDS: Morphine 100 mg/100 mL NS 100 MG in IV Premix 1 EACH IV SCH (01:52)
--- NOTE | 2016-11-21 07:19 | NUR ---
: pt at 0625, double RN verification with Huey Julio RN, no heart beat. pt's son Christopher High notified, he will call back with home arrangements. 75 mls of morphine wasted with Liz White, and 60 mls of ativan wasted with Stephanie Barry. report given to Pia knight RN.
--- NOTE | 2016-11-21 07:53 | NUR ---
Tissue donation Pt head elevated, NS in eyes and eyes paper taped closed for possible donation.
--- NOTE | 2016-11-21 10:00 | NUR ---
Family Spoke with Zack (son) resides in [place], sts was estranged from his father however would like to have the belongings returned to him. [facility] will contact Carlos High (brother of pt) to come to [facility] to gather belongings. This RN informed Zack, the belongings will be left at the front of [facility] at the charge RNs desk. This RN expressed sympathy to Zack for the loss of pt.
--- NOTE | 2016-11-21 10:19 | NUR ---
Off the unit Belongings inventoried by this RN and Kirit Salas CNA and included: $5.00 in quarters, $2.20 in dimes and $.30 in nickels. Glasses, a pocket knife and a small flashlight. Brown plaid lined jacket, de [place] fu[place] lelo shirt, jeans, suspenders, black shoes and a hat. Placed in belonging bag at left at the front of the unit, at the request of the Zack (son) to be picked up by Carols High (Brother). home has not been decided. Security has been notified to transport remains to the [facility].
--- NOTE | 2016-11-21 11:32 | NUR ---
Social Work-discharge: Data& assessment:EMR Reviewed. SW updated by hot car charger that pt has . bowl topper confirms that family has been notified. No other SW needs. Plan:Pt has passed today at [facility]. No other SW needs. SURESH Chang
--- NOTE | 2016-11-21 13:14 | PCM.DC.MED ---
Discharge Summary Date of Service Nov 21, 2016 Dates of Hospitalization Date of Hospital Admission Nov 06, 2016 at 05:18 Date of Discharge: Nov 21, 2016 Providers: Admitting Physician: Kyler Marin MD Primary Care Physician: Yumiko James MD Attending Physician: Kyler Marin MD Diagnosis at Time of Discharge Diagnosis at Time of Discharge 1. ST elevation myocardial infarction 2. Cardiogenic shock 3. Acute on chronic hypoxic respiratory failure 4. Chronic Obstructive Pulmonary Disease with chronic respiratory failure 5. Acute on chronic Systolic Congestive Heart Failure secondary to ischemic cardiomyopathy 6. Chronic Diabetes Mellitus type 2 7. Paroxysmal atrial tachycardia/atrial fibrillation 8. Chronic Hypertension 9. Chronic hyperlipidemia 10. Chronic depression 11. Tobacco dependence 12. Chronic obesity 13. Chronic venous insufficiency PATIENT AT 6:30 am ON 11/21/16 Procedures XRay, CTs & MRIs PROCEDURE: X-RAY CHEST ONE VIEW, PORTABLE IMPRESSION: Interval decreased bibasilar atelectasis. No acute cardiopulmonary disease. Dictated by: Mukesh Acevedo M.D. on 11/14/2016 at 6:49 Cardiac Echo Impression Echocardiogram Report 11/06/2016 Interpretation Summary The left ventricle is borderline dilated. There is akinesis along the apical wall and severe hypokinesis along the anteroseptal wall. There is mild to moderate hypokinesis along the anterior wall. Left ventricular systolic function is moderate to severely reduced. The ejection fraction is estimated to be 35-40%. LVEF has decreased since prior study. Assessment of diastolic parameters indicates a relaxation abnormality of the left ventricle, consistent with normal filling pressures. The right ventricle is normal size. Right ventricular systolic function is mildly reduced. Both atria are mildly dilated. There is no significant valvular heart disease. The aortic root is mildly dilated. Reading Physician:PM Other Diagnostics DIAGNOSTIC CARDIAC CATHETERIZATION FINDINGS: 1. LMCA: The left main coronary artery is intact. 2. LAD: The left anterior descending coronary artery is heavily calcified and initially occluded proximally at the small first septal. When opened, it is a medium-sized transapical vessel with severe diffuse disease in the proximal and mid portions. 3. LCX: The left circumflex coronary artery is a medium-sized vessel. The first OM is a medium-sized branching vessel with 80% lesions. The second OM is a medium-sized vessel with a 70% tubular proximal narrowing. Thereafter the mid LCX is a medium-sized vessel with a 70% proximal lesion. 4. RCA: Dominant. A 90% tubular proximal lesion. The right coronary artery is a large vessel with a large PDA and a large RPLB. 5. LHC: LVED of 20 mmHg; and no systolic gradient across the aortic valve on pullback. Systolic blood pressure 100. CONCLUSIONS: 1. PCI of proximal occluded LAD--Vision BMS--2.5 x 23 mm post dilated to 2.75 mm. 2. ACS--anterior [place] with culprit occluded proximal LAD. 3. Coronary artery disease (CAD)--three-vessel disease including occluded proximal LAD; 80% OM 1, 70% mid LCX; and 90% proximal RCA. Kyler Marin MD 11/06/16 0857 INTERVENTIONAL CARDIAC CATHETERIZATION CONCLUSION: 1. Moderate pulmonary hypertension. 2. Cardiac index is 2.6 L/minute per m2. 3. Mean pulmonary capillary wedge pressure is 35 mmHg. 4. The left anterior descending artery has reoccluded in the proximal portion. 5. Severe 90% proximal right coronary artery stenosis. This was successfully treated with one occluding stent. 6. Severe 70% 1st obtuse marginal branch stenosis. This was successfully treated with one occluding stent. Sosa Mejia MD 11/10/16 0660 Brief History 66 year old male with PMH COPD, chronic respiratory failure on home oxygen, HTN , HFrEF, CAD multiple prior NSTEMIs with recent NSTEMI admission 10/30/2016 but refused cardiac work up and was discharged. He has a significant history of noncompliance. On 11/06/2016 he presented to [facility] ED with shortness of breath and chest pain with ECG showed ST elevation in anterior leads which worsened during the course of his ED stay. He received a diagnostic cardiac catheterization with stent placement to the LAD. Pt transferred to the ICU for ventilation management with expectant extubation. HPI and ROS were unable to be obtained from the patient at this time as he is intubated and sedated. Hospital Course Patient is a 66 gentleman with past medical history significant for coronary artery disease, hypertension, congestive heart failure, dyslipidemia, and history of non compliance with multiple AGAINST MEDICAL ADVICE discharges admitted for STEMI with stent placement to left anterior descending coronary artery. Patient is unable to lay down at baseline secondary to his chronic lung disease and would only agree to catheterization if he was sedated. Patient intubated and sedated for cleaner laboratory equipment and admitted to ICU for ventilation management. Hospital Day 12. Pt signed polst form confirming change of code status to DNR/DNI. Patient transitioned to comfort measures. 1-Comfort Care Status/Plan -Morphine drip at 2.5 mg/hr -ativan drip at 1 mg/hr -ativan and morphine boluses available as needed -please see extensive documentation in chart for this status -PATIENT AT 6:30 am, 11/21/16, NO FAMILY PRESENT BUT WAS COMFORTABLE OVER NIGHT. -CAUSE OF ACUTE [place] CARDIOGENIC SHOCK 2. ST elevation myocardial infarction, present on admission, ongoing - Patient initially stented on day of admission with bare metal stent to left anterior descending coronary artery. Patient taken back to cardiac cleaner laboratory equipment showed occluded LAD stent with significant notable wall motion abnormality consistent with severe myocardial infarction at admission. Two drug -eluting stents placed in the proximal right coronary artery and left marginal obtuse. - PT has been non compliant with medications post extubation - Cardiology continues to follow the patient and we appreciate their recommendations. 3. Cardiogenic shock, not present on admission, ongoing - Secondary to significant wall motion abnormality with worsening ejection fraction DOWN to 20% from 35%. - Patient was requiring vasopressor agents due to hypotension. Patient weaned from norepinephrine on 11/12/16. - Continue captopril 6.25 mg TID in an effort to reduce afterload. 4. Acute on chronic hypoxic respiratory failure, not present on admission, ongoing. - Patient uses 2-3 L supplemental O2 with significant orthopnea at baseline. - Patient required 3 days of mechanical ventilation after initial cardiac catheterization on November 06 before being extubated on 11/09/2016. Patient was taken back to cardiac cleaner laboratory equipment 11/10/2016 and required a second intubation. - Successful extubation on 11/15/2016 - Based on chest x-ray from 11/13/16, concerns for development of new pneumonia contributing to increased O2 needs. Infectious disease consult did not believe this patient is acutely infectious at this time. Continue azithromycin as below in #4. - Pulmonology has been consulted and we appreciate her expertise. 5. Chronic Obstructive Pulmonary Disease with chronic respiratory failure, present on admission, ongoing. - Did not appear to be having exacerbation at time of admission. Patient uses 2 -3 L supplemental O2 in his car. - Continue levalbuterol neb q4 and ipratropium q4 scheduled. - Continue Solu-Medrol 40 mg IV q8. - Continue Azithromycin 500 daily. 6. Acute on chronic Systolic Congestive Heart Failure secondary to ischemic cardiomyopathy, present on admission. Ongoing - Patient did not appear to be decompensated at time of admission. Echo performed 11/06/16 showed EF 35-40% which is decreased from prior study. On evaluation during cardiac catheterization EF approximately 20-22% decreased from the initial EF at presentation during this hospitalization. - Lasix 40 mg as needed for diuresis. - Metoprolol 5 mg IV for sustained tachycardia greater than 120. - Captopril 6.25 mg TID as patient's blood pressure can tolerate. 7. Chronic Diabetes Mellitus type 2, present on admission, ongoing. - Hemoglobin A1C 10.3 this admission. - Patient currently receiving tube feeds. - Continue high dose correction scale of regular insulin. - Continue Lantus 20 units HS. Will continue to evaluate if this dose is appropriate and increase as needed for better management of blood glucose. 8. Paroxysmal atrial tachycardia/atrial fibrillation, chronic, not present on admission. - Continue digoxin 0.25 mg daily. - Continue baby aspirin daily. Since patient is known to be noncompliant with many recommended therapies, is likely a poor candidate for anticoagulation. - Continue telemetry. 9. Chronic Hypertension, present on admission, stable. - Patient has been hypotensive and low normotensive during admission. - Patient currently off pressor support. Continuing to monitor closely. - Continue captopril 3.125 mg TID as tolerated by patient per cardiology recommendations. 10. Chronic hyperlipidemia, present on admission, presumed stable - Continue atorvastatin 40 mg HS. 11. Chronic depression, present on admission, stable. - Continue sertraline 25 mg daily. 12. Tobacco dependence, chronic, present on admission - Nicotine patch available PRN. 13. Chronic obesity, present on admission, presumed stable. - Recommend weight loss with lifestyle changes. 14. Chronic venous insufficiency, present on admission, stable. - Monitor for signs of infection as the patient also has chronic cellulitis. - Antiemetics available PRN. - Bowel Regimen available PRN. - Nystatin powder available PRN. Disposition: Patient is likely to remain inpatient for a significantly extended period of time with significant morbidity and mortality associated to primary disease process. Pt will not be discharged to home, considering discharge to hospice care at this point. Pt changed code status to DNR/DNI comfort care measures Exam Vital Signs (Last) Date Time Temp Pulse Resp B/P Pulse Ox O2 Delivery O2 Flow Rate FiO2 11/20/16 07:15 Supplement Oxygen 11/20/16 07:15 29 11/19/16 15:16 11/19/16 09:02 37.0 83 90 1.50 11/15/16 08:10 50 Test 11/06/16 03:13 11/07/16 18:00 11/08/16 00:45 11/08/16 04:15 D-Dimer 0.7mg/L (<0.50) Hemoglobin A1c 10.3% (4.8-5.6) Lactic Acid Level 1.4mmol/L (0.4-2.0) Hold Purple Top Tube Received (Received) Hold [place] Top Tube Received (Received) Hold [place] Top Tube Received (Received) Total Creatine Kinase 394U/L (21-232) Creatine Kinase MB 34.4ng/mL (0.0-10.4) Creatine Kinase MB % 8.7% (0.0-5.0) Thyroid Stimulating Hormone (TSH) 0.340uIU/mL (0.450-4.500) Test 11/08/16 15:43 11/09/16 14:32 11/15/16 05:50 11/16/16 06:00 Urine Color Yellow (YELLOW) Urine Appearance Clear (CLEAR,HAZY) Urine pH 5.5 (5.0-8.0) Urine Specific [place] 1.020 (1.003-1.035) Urine Protein Negativemg/dL (NEG,TRACE) Urine Glucose (UA) >1000mg/dL (NEGATIVE) Urine Ketones 15mg/dL (NEGATIVE) Urine Occult Blood Negative (NEGATIVE) Urine Nitrite Negative (NEGATIVE) Urine Bilirubin Negative (NEGATIVE) Urine Urobilinogen Normalmg/dL (NORMAL) Urine Leukocyte Esterase Negative (NEGATIVE) Urine RBC 0-2/hpf (0-2) Urine WBC 0-5/hpf (0-5) Urine Epithelial Cells Few/hpf (NONE-MOD) Urine Crystals None seen (NONE SEEN) Urine Bacteria Few/hpf (NONE-FEW) Urine Hyaline Casts None/lpf (NONE) Urine Granular Casts None seen (NONE SEEN) Urine Waxy Casts None seen (NONE SEEN) Urine Red Blood Cell Casts None seen (NONE SEEN) Urine White Blood Cell Casts None seen (NONE SEEN) Urine Mucus None seen (None Seen) Urine Trichomonas None seen (NONE SEEN) Urine Yeast None (NONE SEEN) Urinalysis Comment None Urine Culture Reflexed Not indicated Troponin T 0.773ug/L (0.0-0.011) Prothrombin Time 10.7sec (8.1-12.5) Prothromb Time International Ratio 1.00ratio Pro-B-Type Natriuretic Peptide 3808pg/mL (0-376) Procalcitonin 0.11ng/mL (0.00-0.08) Digoxin Level 1.0nG/mL (0.9-2.0) White Blood Count 11.5th/mm3 (3.8-10.1) Red Blood Count 5.22mil/mm3 (4.40-5.80) Hemoglobin 14.5g/dL (13.8-17.2) Hematocrit 45.5% (41.0-50.0) Mean Corpuscular Volume 87.2fL (81-100) Mean Corpuscular Hemoglobin 27.8pg (27.0-35.0) Mean Corpuscular Hemoglobin Concent 31.9% (32.0-37.0) Red Cell Distribution Width 14.2% (12.3-15.4) Platelet Count 300bil/L (150-400) Neutrophils (%) (Auto) 84.8% (40-74) Lymphocytes (%) (Auto) 6.0% (14-46) Monocytes (%) (Auto) 6.9% (4-12) Eosinophils (%) (Auto) 0.1% (0-5) Basophils (%) (Auto) 0.3% (0-3) Sodium Level 142mEq/L (134-144) Potassium Level 4.7mEq/L (3.5-5.2) Chloride Level 95mEq/L (97-108) Carbon Dioxide Level 32mmol/L (18-29) Blood Urea Nitrogen 49mg/dL (8-27) Creatinine 0.70mg/dL (0.76-1.27) Estimat Glomerular Filtration Rate 120mL/min (>59) Glucose Level 153mg/dL (60-99) Calcium Level 9.5mg/dL (8.5-10.1) Phosphorus Level 4.0mg/dL (2.5-4.9) Magnesium Level 2.3mg/dL (1.6-2.6) Total Bilirubin 0.5mg/dL (0.0-1.2) Aspartate Amino Transf (AST/SGOT) 15U/L (0-50) Alanine Aminotransferase (ALT/SGPT) 19U/L (0-44) Alkaline Phosphatase 72U/L (25-160) Total Protein 6.9g/dL (6.4-8.4) Albumin 3.6g/dL (3.4-5.0) Discharge Medications Discharge Medications Albuterol Neb Soln (Albuterol Neb Soln) 2.5 Mg/3 Ml Vial.neb 2.5 MG INHALATION Q4H (Reported) Fluticasone Propionate (Flovent HFA 220 mcg) 12 Gm Aer.w.adap 1 PUFF IH BID ( Reported) As needed Albuterol HFA (Proair HFA) 8.5 Gm Hfa.aer.ad 2 PUFFS INHALATION Q4H PRN PRN For Shortness of Breath (Reported) Lorazepam (Ativan) 1 Mg Tablet 1 MG PO TID PRN PRN For Anxiety Prescribed by: HARINDER PACKER DO Morphine Sulfate (Morphine Sulfate) 30 Mg Tablet 30 MG PO DAILY PRN PRN For Pain Prescribed by: HARINDER PACKER DO oxyCODONE-Acetaminophen 10-325 mg (oxyCODONE-Acetaminophen 10-325 mg) 1 Each Tablet 1 TABLET PO Q4H PRN PRN For Pain Prescribed by: HARINDER PACKER DO Additional med instructions All patient home medications in hospital medications have been discontinued with the exception of medications used for comfort measures only. Followup Plan Discharge Diet: No restrictions Discharge Activity: No restrictions Patient Instructions You are being discharged to hospice care you will be able to live out the remainder of your days in comfort. All of the medications have been discontinued, with the exception of medications that are to be used for your comfort such as pain medications or oxygen. Richy Flood MD Nov 21, 2016 13:14
== END 2016-11-21 06:25 | disposition expired | DRG 246 ==
LOC: SED 01:23 → CCU 05:18 → PCC 11-09 13:45 → CCU 11-09 16:41 → PCC 11-10 09:40 → CCU 11-10 18:50 → PCC 11-16 04:43 → MPC 11-18 16:42
PROVIDERS: ADMIT Internal Medicine Cardiovascular Disease; ATTEND Internal Medicine
PROC: 02703DZ Dilation of Coronary Artery, One Artery with Intraluminal Device, Percutaneous Approach (ICD-10-PCS; 2016-11-06)
PROC: 5A1945Z Respiratory Ventilation, 24-96 Consecutive Hours (ICD-10-PCS; 2016-11-06)
PROC: 4A023N7 Measurement of Cardiac Sampling and Pressure, Left Heart, Percutaneous Approach (ICD-10-PCS; 2016-11-06)
PROC: B2111ZZ Fluoroscopy of Multiple Coronary Arteries using Low Osmolar Contrast (ICD-10-PCS; 2016-11-06)
PROC: 4A033R1 Measurement of Arterial Saturation, Peripheral, Percutaneous Approach (ICD-10-PCS; 2016-11-06)
PROC: 027135Z Dilation of Coronary Artery, Two Arteries with Two Drug-eluting Intraluminal Devices, Percutaneous Approach (ICD-10-PCS; principal; 2016-11-10)
PROC: 4A023N8 Measurement of Cardiac Sampling and Pressure, Bilateral, Percutaneous Approach (ICD-10-PCS; 2016-11-10)
PROC: B2151ZZ Fluoroscopy of Left Heart using Low Osmolar Contrast (ICD-10-PCS; 2016-11-10)
PROC: 0B21XEZ Change Endotracheal Airway in Trachea, External Approach (ICD-10-PCS; 2016-11-10)
PROC: 5A1945Z Respiratory Ventilation, 24-96 Consecutive Hours (ICD-10-PCS; 2016-11-10)
DX: I21.09 ST elevation (STEMI) myocardial infarction involving other coronary artery of anterior wall (principal); J96.21 Acute and chronic respiratory failure with hypoxia; I50.43 Acute on chronic combined systolic (congestive) and diastolic (congestive) heart failure; T82.855A Stenosis of coronary artery stent, initial encounter; T85.638A Leakage of other specified internal prosthetic devices, implants and grafts, initial encounter; R57.0 Cardiogenic shock; I25.10 Atherosclerotic heart disease of native coronary artery without angina pectoris; I25.84 Coronary atherosclerosis due to calcified coronary lesion; Z59.0 Homelessness; Z87.891 Personal history of nicotine dependence; J44.9 Chronic obstructive pulmonary disease, unspecified; I10 Essential (primary) hypertension; E78.1 Pure hyperglyceridemia; E11.9 Type 2 diabetes mellitus without complications; Z91.14 Patient's other noncompliance with medication regimen; I25.5 Ischemic cardiomyopathy; F91.8 Other conduct disorders; F32.9 Major depressive disorder, single episode, unspecified; I48.0 Paroxysmal atrial fibrillation; I87.2 Venous insufficiency (chronic) (peripheral); E66.9 Obesity, unspecified; Z68.33 Body mass index [BMI] 33.0-33.9, adult; Y82.8 Other medical devices associated with adverse incidents; Y92.230 Patient room in hospital as the place of occurrence of the external cause; Y71.1 Therapeutic (nonsurgical) and rehabilitative cardiovascular devices associated with adverse incidents; F60.9 Personality disorder, unspecified; Z66 Do not resuscitate; Z51.5 Encounter for palliative care